=== PATIENT | female | born 1935 | race Caucasian/White ===

== ENCOUNTER → 2016-11-25 | Day surgery (SDC) | payer MEDICARE, BC ==
[~2016-11-25] MED LIST: Bupivacaine 0.5%/EPINEPHrine 1:200,000 50 ML MDV ONE; Dexamethasone 4 MG/ML SDV ONE; Heparin Sodium 5,000 Units/ML Vial ONE; Labetalol 100 MG/20 ML MDV ONE; Lactated Ringers 1,000 ML IV SCH; Lidocaine 1% 2 ML SDV ONE; Lidocaine 1% with EPINEPHrine 1:100,000 20 ML MDV ONE; Lidocaine 1%/Sod Bicarbonate in NS 8.4% 1 ML Syringe IV PRN; Ondansetron 4 MG/2 ML SDV ONE; Propofol 200 MG/20 ML SDV ONE; Scopolamine 1.5 MG Transdermal Patch TOP SCH; Sodium Chloride 0.9% 10 ML Syringe FLUSH PRN; Sodium Chloride 0.9% 50 ML SDV ONE; ceFAZolin 1 GM Vial ONE; diphenhydrAMINE 50 MG/ML SDV ONE; fentaNYL 100 MCG/2 ML SDV ONE
--- NOTE | 2016-11-25 07:08 | PCM.PREANE ---
Preanesthetic Assessment - ANESTHESIA/TRANSFUSION/FAMILY HX Anesthesia/Transfusion History: No Prior Transfusion(s), Prior Anesthesia ( nausea) Type of Anesthesia Reaction: Reports: Excessive Nausea/Vomiting Family History of Anesthesia Reaction: No Intubation History: Unknown - REVIEW OF SYSTEMS Constitutional: Reports: no symptoms MEDICAL RECEPTIONIST: Reports: no symptoms Respiratory: Reports: no symptoms Cardiovascular: Reports: no symptoms GI: Reports: no symptoms Other: Reports: diabetes (check this AM 0500 result 164) - PHYSICAL ASSESSMENT HR: 66 O2 Sat by Pulse Oximetry: 100 RR: 16 BP: 157/107 Temp: 36.2 C Vital Signs: Last Vital Signs Temp 36.2 C 11/25/16 06:30 Pulse 66 11/25/16 06:30 Resp 16 11/25/16 06:30 BP 157/107 H 11/25/16 06:30 Pulse Ox 100 11/25/16 06:30 Height: 1.63 m Weight: 77.111 kg NPO Status Date: 11/24/16 NPO Status Time: 17:00 ASA Class: 3 Mental Status: alert & oriented x3 Airway Class: Mallampati = 1 Dentition: Reports: broken tooth/teeth Thyro-Mental Finger Breadths: 3 Mouth Opening Finger Breadths: 3 ROM/Head Extension: full Respiratory Status: lungs clear to auscultation bilaterally Cardiovascular Status: regular rate & rhythm, normal S1, S2, no murmur, blood pressure WNL - ALLERGIES Allergies/Adverse Reactions: Allergies Allergy/AdvReac Type Severity Reaction Status Date / Time codeine Allergy Swollen Verified 10/23/16 11:04 Tongue duloxetine [From Cymbalta] Allergy Difficulty Verified 10/23/16 11:04 Breathing hydrocodone Allergy Swollen Verified 10/23/16 11:04 Tongue hydromorphone [From Dilaudid] Allergy Fever Verified 11/24/16 13:00 - ANESTHESIA PLAN Preop Beta Victoriano: Yes Beta Victoriano: Metoprolol Beta-Victoriano Last Dose Date: 11/25/16 Beta-Victoriano Last Dose Time: 05:00 Anesthesia Type Planned: MAC - ACKNOWLEDGEMENTS Pt an appropriate candidate for the planned anesthesia: Yes Alternatives and risks of anesthesia discussed w pt/guardian: Yes Pt/Guardian understands and agree with anesthesia plan: Yes PreAnesthesia Questionnaire HEENT History: Reports: Cataract, Glaucoma Other HEENT History: Thrush Cardiovascular History: Reports: Arrhythmia, High cholesterol, Hypertension, Pacemaker Other Cardiovascular History: chest pain, edema, arrythmia Respiratory History: Reports: Other (see below) Other Respiratory History: Lung Cancer, Pulmonary nodule, Dyspnea on exertion Gastrointestinal History: Reports: None Genitourinary History: Reports: Chronic renal insuffiency Other Genitourinary History: Contrast dye induced nephropathy, Microalbuminuria 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: Musculoskeletal History: Reports: Fibromyalgia Neurological History: Reports: None Psychiatric History: Reports: None Endocrine/Metabolic History: Reports: Diabetes, type II, Hypothyroidism, Vitamin D deficiency Other Endocrine/Metabolic History: DM II (diet controlled), goiter, thyroid nodule Immunologic History: Reports: None Oncologic (Cancer) History: Reports: Lung Dermatologic History: Reports: None - Infectious Disease History Infectious Disease History: Reports: Chicken pox - Past Surgical History HEENT Surgical History: Reports: Cataract surgery Cardiovascular Surgical History: Reports: Pacer Respiratory Surgical History: Reports: Thoracotomy, Other (see below) Other Respiratory Surgeries/Procedures: Bronchoscopy,Thoracotomy with RLL lobectomy GI Surgical History: Reports: Appendectomy, Colonoscopy Female Surgical History: Reports: Hysterectomy, Salpingo-oophorectomy Endocrine Surgical History: Reports: Thyroidectomy Neurological Surgical History: Reports: None Musculoskeletal Surgical History: Reports: Hip replacement Other Musculoskeletal Surgeries/Procedures:: Left SARI Oncologic Surgical History: Reports: Lobectomy, Other (see below) Other Oncologic Surgeries/Procedures: lymph node biopsy Dermatological Surgical History: Reports: None - SUBSTANCE USE Smoking Status *Q: Never Smoker Second Hand Smoke Exposure: No Recreational Drug Use History: No - HOME MEDS Home Medications: Home Meds Levothyroxine 75 mcg PO DAILY 12/10/15 [History] Lisinopril 40 mg PO DAILY 12/10/15 [History] Metoprolol Succinate 50 mg PO QAM 12/10/15 [History] Furosemide [Lasix] 20 mg PO DAILY #30 tablet 03/17/16 [Rx] Aspirin 81 mg PO DAILY 05/15/16 [History] Cholecalciferol (Vitamin D3) [Vitamin D3] 2,000 units PO DAILY 05/15/16 [History ] Latanoprost 1 drop OP BEDTIME 10/20/16 [History] [place]-3/DHA/Epa/Fish Oil [[place]-3 Fish Oil 1,000 MG Sfgl] 1,000 mg PO DAILY [History] Ketorolac [Toradol] 10 mg PO Q8H PRN #12 tablet 10/24/16 [Rx] traMADol [Ultram] 50 mg PO Q6H PRN 11/24/16 [History] - CURRENT (IN HOUSE) MEDS Current Meds: Current Medications Lactated Ringer's (Ringers, Lactated) 1,000 mls @ 125 mls/hr IV ASDIRECTED LUCIO Stop: 11/25/16 23:00 Lidocaine/Sodium Bicarbonate (Buffered Lidocaine 1% In Ns 8.4%) 0.25 ml IV ONETIME PRN PRN Reason: Prior to IV Start Stop: 11/25/16 18:00 Sodium Chloride (Saline Flush) 10 ml FLUSH ASDIRECTED PRN PRN Reason: Keep Vein Open Stop: 11/25/16 18:00 Discontinued Medications Bupivacaine HCl/Epinephrine Bitart (Marcaine 0.5%/Epinephrine 1:200,000) Confirm Administered Dose 50 ml .ROUTE .STK-MED ONE Stop: 11/25/16 06:46 Heparin Sodium (Porcine) (Heparin Sodium) Confirm Administered Dose 10,000 units .ROUTE .STK-MED ONE Stop: 11/25/16 06:46 Lidocaine/Epinephrine (Xylocaine 1% With Epinephrine 1:100,000) Confirm Administered Dose 20 ml .ROUTE .STK-MED ONE Stop: 11/25/16 06:46 Sodium Chloride (Normal Saline) Confirm Administered Dose 50 ml .ROUTE .STK-MED ONE Stop: 11/25/16 06:47
[2016-11-25 08:21] VITALS: BP 182/81
--- NOTE | 2016-11-25 08:26 | PCM.OPNOTE ---
- General Post-Op/Procedure Note Date of Surgery/Procedure: 11/25/16 Operative Procedure(s): Port-A-Cath placement. Ultrasound of the right internal jugular vein. Fluoroscopic guidance and interpretation Pre Op Diagnosis: Metastatic lung cancer Post-Op Diagnosis: Metastatic lung cancer Anesthesia Technique: Local (20 mL), MAC Primary Surgeon: Chacha Helms Anesthesia Provider: Guru Saldaña Pathology: None Fluid Replacement, Intraop: 600 (mL crystalloid ) EBL in mLs: 10 Complications: None Condition: Good Free Text/Narrative:: IMPLANTED DEVICES: Power port slim port, MRI compatible power injectable portacath INDICATION FOR PROCEDURE: Akua is an 81-year-old woman who was referred to me by Dr. Ferrara for evaluation for Port-A-Cath placement. The patient has known metastatic lung cancer. I discussed with the patient placement of a Port-A-Cath and the associated risks. The patient found these risks acceptable and agreed to proceed. DESCRIPTION OF PROCEDURE: The patient was taken to the operating room and placed in the supine position. The arms were tucked at the sides bilaterally and pressure points were padded. A transverse subscapular roll was placed. The patient's head was placed in a gel doughnut. Preoperative antibiotics were administered as per protocol. The patient was placed in Trendelenburg. The neck and upper chest were prepped and draped in usual sterile fashion with chlorhexidine. The patient has a pacemaker on the left. She previously has had a port on the right, it has been out for about 1.5 years. I also recently performed a supraclavicular lymph node biopsy on the right. We had discussed placement of the Port-A-Cath preferentially on the right due to the pacer. The right IJ was evaluated and was patent, however placement there would require tunneling through my recent incision. I elected to try subclavian first. Approximately 10 mL of local anesthetic were infiltrated into the area of the planned port placement and injection site. A stab incision was made with a 15 blade. A 16-gauge needle was then used to access the right subclavian vein with return of nonpulsatile blood on the first attempt. A guidewire was passed without difficulty and its position was confirmed using fluoroscopy in the inferior vena cava taking great care to not disturb the pacer wires. The needle was removed and the port pocket incision was made. A pocket was made directly over the chest wall fascia. A dilator was then advanced over the guidewire under direct fluoroscopic visualization. The inner cannula was removed as well as the wire. The catheter was advanced to the atriocaval junction and this was performed under fluoroscopy. The catheter was then trimmed and attached to the port. The port was then accessed and nonpulsatile blood was easily withdrawn. The port was then flushed with sterile saline. The port was secured in the pocket using 2-0 Prolene interrupted suture x3. The port was accessed once more and blood was aspirated and a total of 2 mL of 5000 units per mL heparin was instilled into the catheter for packing. 3-0 Vicryl suture was then used to reapproximate the deep subcutaneous tissue. 4-0 Vicryl was then used in running subcuticular fashion to reapproximate the skin. Dermabond was applied. The patient was awakened from sedation and transferred to the recovery room in stable condition having tolerated the procedure well. Sponge and instrument counts were reported as correct at the end of the case. POST-OPERATIVE INSTRUCTIONS: A postoperative chest x-ray was obtained which I immediately reviewed. The port was in excellent position and there was no evidence of pneumothorax. The Port-A-Cath is immediately usable. The patient has been provided with a prescription for EMLA cream, to apply a dime-sized amount approximately 15-20 minutes prior to accessing the port. Pain medication was also provided. The patient may follow up with me on an as needed basis.
--- NOTE | 2016-11-25 09:07 | CR ---
Chest: Portable view of the chest was obtained. Comparison: Previous chest x-ray 10/23/16. Heart is mildly enlarged. Pacemaker is noted. Right-sided port is seen with tip lying near the superior vena cava and right atrial junction. Previous rib resection on the right side is seen. No acute infiltrates are seen. No pneumothorax identified. Impression: 1. Port-A-Cath placement on the right side. 2. Other incidental findings. Diagnostic code #2
--- NOTE | 2016-11-25 15:33 | CR ---
Chest: Two fluoroscopic spot views were obtained utilizing C-arm device during Port-A-Cath placement. Tip of catheter appears to lie within the superior vena cava. Fluoroscopy time given as 71.5 seconds. Impression: 1. Findings as noted above. Diagnostic code #2
== END | disposition home or self-care (01) ==
LOC: JD.SDS 06:20
PROVIDERS: ATTEND Surgery
PROC: 05HM33Z Insertion of Infusion Device into Right Internal Jugular Vein, Percutaneous Approach (ICD-10-PCS; principal; 2016-11-25)
DX: C34.90 Malignant neoplasm of unspecified part of unspecified bronchus or lung (principal); E55.9 Vitamin D deficiency, unspecified; E11.9 Type 2 diabetes mellitus without complications; I10 Essential (primary) hypertension; E03.9 Hypothyroidism, unspecified; E78.00 Pure hypercholesterolemia, unspecified; M79.7 Fibromyalgia; H40.9 Unspecified glaucoma; Z95.0 Presence of cardiac pacemaker; Z96.642 Presence of left artificial hip joint; Z79.82 Long term (current) use of aspirin; Z79.899 Other long term (current) drug therapy; Z88.6 Allergy status to analgesic agent; Z88.8 Allergy status to other drugs, medicaments and biological substances
CPT/HCPCS: 00532; 71010; 71010-26; 77001; 77001-26; A9270-GY; C1788; J0690; J1100; J1200; J1644; J2405; J2704; J3010; J7120

== ENCOUNTER 2017-02-06 06:46 | Emergency (ER) | payer MEDICARE, BC ==
[2017-02-06 06:56] VITALS: BP 161/64
[2017-02-06] MEDS ORDERED: Lidocaine 4% Crm 5 Gm with Transparent Dressing Kit ONE (07:07)
[2017-02-06] MEDS ORDERED: Lidocaine 4% Crm 5 Gm with Transparent Dressing Kit TOP ONE (07:08)
[2017-02-06] MEDS ORDERED: Ondansetron 4 MG/2 ML SDV IVPUSH ONE (07:11)
[2017-02-06] MEDS ORDERED: Sodium Chloride 0.9% 10 ML Syringe FLUSH PRN (07:11)
[2017-02-06] MEDS ORDERED: Sodium Chloride 0.9% 1,000 ML IV SCH (07:15)
--- NOTE | 2017-02-06 07:19 | EDM.PDOC ---
ED HPI GENERAL MEDICAL PROBLEM - General Chief Complaint: Neuro Symptoms/Deficits Stated Complaint: WEAKNESS Time Seen by Provider: 02/06/17 06:58 Source of Information: Reports: Patient, RN Notes Reviewed - History of Present Illness INITIAL COMMENTS - FREE TEXT/NARRATIVE: 81-year-old female comes in with nausea, decreased appetite. She does have history of recurrent lung cancer. She's been on chemotherapy for the past 2 or 3 months getting that every Wednesday. Her last chemotherapy was 4 days ago. States she started feeling nauseated yesterday with decreased appetite. Continues today. She does feel somewhat weak lightheaded and dizzy. No chest pain. She has chronic dyspnea no worse than usual. No major abdominal or back discomfort at this time. She's not been coughing any more than usual. No recent fever, vomiting or diarrhea. - Related Data Allergies Allergy/AdvReac Type Severity Reaction Status Date / Time codeine Allergy Swollen Verified 02/06/17 06:53 Tongue duloxetine [From Cymbalta] Allergy Difficulty Verified 02/06/17 06:53 Breathing hydrocodone Allergy Swollen Verified 02/06/17 06:53 Tongue hydromorphone [From Dilaudid] Allergy Fever Verified 02/06/17 06:53 Home Meds: Home Meds Levothyroxine 75 mcg PO DAILY 12/10/15 [History] Lisinopril 40 mg PO DAILY 12/10/15 [History] Metoprolol Succinate 50 mg PO QAM 12/10/15 [History] Furosemide [Lasix] 20 mg PO DAILY #30 tablet 03/17/16 [Rx] Aspirin 81 mg PO DAILY 05/15/16 [History] Cholecalciferol (Vitamin D3) [Vitamin D3] 2,000 units PO DAILY 05/15/16 [History ] Latanoprost 1 drop OP BEDTIME 10/20/16 [History] [place]-3/DHA/Epa/Fish Oil [[place]-3 Fish Oil 1,000 MG Sfgl] 1,000 mg PO DAILY [History] traMADol [Ultram] 50 mg PO Q6H PRN 11/24/16 [History] Lidocaine/Prilocaine [EMLA Crm] 1 gm TOP Q6H PRN #1 tube 11/25/16 [Rx] Past Medical History HEENT History: Reports: Cataract, Glaucoma Other HEENT History: Thrush Cardiovascular History: Reports: Arrhythmia, High Cholesterol, Hypertension, Pacemaker Other Cardiovascular History: chest pain, edema, arrythmia Respiratory History: Reports: Other (See Below) Other Respiratory History: Lung Cancer, Pulmonary nodule, Dyspnea on exertion Gastrointestinal History: Reports: None Genitourinary History: Reports: Chronic Renal Insuffiency Other Genitourinary History: Contrast dye induced nephropathy, Microalbuminuria 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: Musculoskeletal History: Reports: Fibromyalgia Neurological History: Reports: None Psychiatric History: Reports: None Endocrine/Metabolic History: Reports: Diabetes, Type II, Hypothyroidism, Vitamin D Deficiency Other Endocrine/Metabolic History: DM II (diet controlled), goiter, thyroid nodule Immunologic History: Reports: None Oncologic (Cancer) History: Reports: Lung Dermatologic History: Reports: None - Infectious Disease History Infectious Disease History: Reports: Chicken Pox - Past Surgical History HEENT Surgical History: Reports: Cataract Surgery Respiratory Surgical History: Reports: Thoracotomy, Other (See Below) Female Surgical History: Reports: Hysterectomy, Salpingo-Oophorectomy Musculoskeletal Surgical History: Reports: Hip Replacement Oncologic Surgical History: Reports: Lobectomy, Other (See Below) Social & Family History - Family History Family Medical History: Noncontributory - Tobacco Use Smoking Status *Q: Never Smoker Second Hand Smoke Exposure: No - Caffeine Use Caffeine Use: Reports: None - Recreational Drug Use Recreational Drug Use: No Drug Use in Last 12 Months: No - Living Situation & Occupation Occupation: Retired ED ROS GENERAL - Review of Systems Review Of Systems: See Below Constitutional: Denies: Fever HEENT: Denies: Sinus Problem, Throat Pain Respiratory: Reports: Shortness of Breath (Mild chronically) Cardiovascular: Reports: Dyspnea on Exertion. Denies: Chest Pain, Edema Endocrine: Reports: Fatigue GI/Abdominal: Reports: Nausea. Denies: Abdominal Pain, Diarrhea, Vomiting Musculoskeletal: Denies: Neck Pain, Shoulder Pain, Leg Pain Skin: Denies: Rash Neurological: Reports: Dizziness, Weakness (Mild generalized). Denies: Trouble Speaking ED EXAM, NEURO - Physical Exam Exam: See Below General Appearance: Alert, No Apparent Distress Eye Exam: Bilateral Eye: PERRL Throat/Mouth: Normal Inspection, Other (Oral mucosa mildly dry) Head Exam: Atraumatic. No: Facial Swelling Neck: Supple, Full Range of Motion. No: Lymphadenopathy (L), Lymphadenopathy (R ) Respiratory/Chest: No Respiratory Distress, Lungs Clear, Normal Breath Sounds Cardiovascular: Regular Rate, Rhythm GI/Abdominal: Soft, Tender (Very mild tenderness upper mid abdomen) Neurological: Alert, No Motor/Sensory Deficits, Oriented x 3 Back Exam: No: CVA Tenderness (L), CVA Tenderness (R) Extremities: Normal Inspection. No: Pedal Edema, Leg Pain Skin Exam: Warm, Dry, Normal Color Course - Vital Signs Last Recorded V/S: Last Vital Signs Temp 96.7 F 02/06/17 06:54 Pulse 64 02/06/17 06:54 Resp 19 02/06/17 06:54 BP 161/64 H 02/06/17 06:54 Pulse Ox 100 02/06/17 06:54 - Orders/Labs/Meds Orders: Active Orders 24 hr Category Date Time Status Peripheral IV Care [RC] . DIRECTED Care 02/06/17 07:12 Active Sodium Chloride 0.9% [Normal Saline] 1,000 ml Med 02/06/17 07:15 Active IV ONETIME Sodium Chloride 0.9% [Saline Flush] Med 02/06/17 07:11 Active 10 ml FLUSH ASDIRECTED PRN Peripheral IV Insertion Adult [OM.PC] Stat Oth 02/06/17 07:11 Ordered Medication Orders Sodium Chloride (Normal Saline) 1,000 mls @ 999 mls/hr IV ONETIME [facility] [place] Last Admin: 02/06/17 07:45 Dose: 999 mls/hr Sodium Chloride (Saline Flush) 10 ml FLUSH ASDIRECTED PRN PRN Reason: Keep Vein Open Last Admin: 02/06/17 07:47 Dose: 10 ml Labs: Laboratory Tests 02/06/17 02/06/17 Range/Units 07:35 07:35 WBC 4.10 (3.98-10.04) K/mm3 RBC 2.52 L (3.98-5.22) M/mm3 Hgb 8.6 L (11.2-15.7) gm/L Hct 25.4 L (34.1-44.9) % MCV 100.8 H (79.4-94.8) fl MCH 34.1 H (25.6-32.2) pg MCHC 33.9 (32.2-35.5) g/dl RDW Std Deviation 59.3 H (36.4-46.3) fL Plt Count 158 L (182-369) K/mm3 MPV 10.3 (9.4-12.3) fl Neut % (Auto) 70.1 (34.0-71.1) % Lymph % (Auto) 22.7 (19.3-51.7) % [place] % (Auto) 6.8 (4.7-12.5) % Eos % (Auto) 0.2 L (0.7-5.8) Baso % (Auto) 0.0 L (0.1-1.2) % Neut # (Auto) 2.87 (1.56-6.13) K/mm3 Lymph # (Auto) 0.93 L (1.18-3.74) K/mm3 [place] # (Auto) 0.28 (0.24-0.36) K/mm3 Eos # (Auto) 0.01 L (0.04-0.36) K/mm3 Baso # (Auto) 0.00 L (0.01-0.08) K/mm3 Sodium 140 (136-145) mEq/L Potassium 4.1 (3.5-5.1) mEq/L Chloride 106 (98-107) mEq/L Carbon Dioxide 24 (21-32) mEq/L Anion Gap 14.1 (5-15) BUN 23 H (7-18) mg/dL Creatinine 1.0 (0.55-1.02) mg/dL Est Cr Clr Drug Dosing 38.75 mL/min Estimated GFR (MDRD) 53 (>60) mL/min BUN/Creatinine Ratio 23.0 H (14-18) Glucose 154 H (83-115) mg/dL Calcium 8.8 (8.5-10.1) mg/dL Total Bilirubin 1.2 H (0.2-1.0) mg/dL AST 17 (15-37) U/L ALT 22 (14-59) U/L Alkaline Phosphatase 53 (46-116) U/L Total Protein 6.6 (6.4-8.2) g/dl Albumin 3.1 L (3.4-5.0) g/dl Globulin 3.5 gm/dL Albumin/Globulin Ratio 0.9 L (1-2) Meds: Medications Generic Name Dose Route Start Last Admin Trade Name Freq PRN Reason Stop Dose Admin Sodium Chloride 1,000 mls @ 999 mls/hr 02/06/17 07:15 02/06/17 07:45 Normal Saline IV 999 mls/hr ONETIME LUCIO Administration Sodium Chloride 10 ml 02/06/17 07:11 02/06/17 07:47 Saline Flush FLUSH 10 ml ASDIRECTED PRN Administration Keep Vein Open Discontinued Medications Generic Name Dose Route Start Last Admin Trade Name Angel PRN Reason Stop Dose Admin Famotidine 20 mg 02/06/17 07:26 02/06/17 07:46 Pepcid IVPUSH 02/06/17 07:27 20 mg ONETIME ONE Administration Lidocaine HCl Confirm 02/06/17 07:07 02/06/17 07:11 Lmx 4 Cream With Tegaderm Administered 02/06/17 07:08 Not Given Dose 1 each .ROUTE .STK-MED ONE Lidocaine HCl 1 each 02/06/17 07:08 02/06/17 07:12 Lmx 4 Cream With Tegaderm TOP 02/06/17 07:09 1 applic ASDIRECTED ONE Administration Ondansetron HCl 4 mg 02/06/17 07:11 02/06/17 07:46 Zofran IVPUSH 02/06/17 07:12 4 mg ONETIME ONE Administration Departure - Departure Time of Disposition: 08:45 Disposition: Home, Self-Care 01 Condition: fair Clinical Impression: Anorexia, Nausea, Lung cancer - Discharge Information Forms: ED Department Discharge Additional Instructions: Use nausea medication as previously prescribed, clear liquids and very bland diet as tolerated, just to eat small amounts more frequently, followup clinic Wednesday as planned, return to ED as needed if symptoms worsening in any way - My Orders Last 24 Hours: My Active Orders 02/06/17 07:11 Sodium Chloride 0.9% [Saline Flush] 10 ml FLUSH ASDIRECTED PRN Peripheral IV Insertion Adult [OM.PC] Stat 02/06/17 07:12 Peripheral IV Care [RC] . DIRECTED 02/06/17 07:15 Sodium Chloride 0.9% [Normal Saline] 1,000 ml IV ONETIME - Assessment/Plan Last 24 Hours: My Active Orders 02/06/17 07:11 Sodium Chloride 0.9% [Saline Flush] 10 ml FLUSH ASDIRECTED PRN Peripheral IV Insertion Adult [OM.PC] Stat 02/06/17 07:12 Peripheral IV Care [RC] . DIRECTED 02/06/17 07:15 Sodium Chloride 0.9% [Normal Saline] 1,000 ml IV ONETIME
[2017-02-06] MEDS ORDERED: Famotidine 20 MG/2 ML SDV IVPUSH ONE (07:26)
== END 2017-02-06 09:33 | disposition home or self-care (01) ==
LOC: JD.ED 06:46
DX: R63.0 Anorexia (principal); R11.0 Nausea; C34.90 Malignant neoplasm of unspecified part of unspecified bronchus or lung; E78.00 Pure hypercholesterolemia, unspecified; E11.22 Type 2 diabetes mellitus with diabetic chronic kidney disease; N18.9 Chronic kidney disease, unspecified; I12.9 Hypertensive chronic kidney disease with stage 1 through stage 4 chronic kidney disease, or unspecified chronic kidney disease; E03.9 Hypothyroidism, unspecified; Z88.5 Allergy status to narcotic agent; Z88.8 Allergy status to other drugs, medicaments and biological substances; Z79.899 Other long term (current) drug therapy; Z79.82 Long term (current) use of aspirin; Z90.710 Acquired absence of both cervix and uterus; Z98.49 Cataract extraction status, unspecified eye
CPT/HCPCS: 36415; 80053; 85025; 96361; 96374; 96375; 99285; J1642; J2405; J7040; J7050; 99284

== ENCOUNTER 2017-05-03 11:37 | Emergency (ER) | payer MEDICARE, BC ==
[2017-05-03] MEDS ORDERED: Sodium Chloride 0.9% 10 ML Syringe FLUSH PRN (12:12)
[2017-05-03] MEDS ORDERED: Sodium Chloride 0.9% 1,000 ML IV SCH (12:15)
--- NOTE | 2017-05-03 13:30 | CR ---
Chest: Portable view of the chest was obtained. Comparison: Previous chest x-ray of 11/25/16. Heart is enlarged. Mild tortuosity of the thoracic aorta is seen. Lungs are clear. Previous fracture or rib resection is noted within the right upper chest which is stable. Right-sided infusion port is seen. Left-sided pacemaker is noted Impression: 1. Findings as noted above. Nothing acute is identified on portable chest x-ray. Diagnostic code #2
[2017-05-03] MEDS ORDERED: Sodium Chloride 0.9% 10 ML Syringe FLUSH ONE (14:53)
[2017-05-03] MEDS ORDERED: Iopamidol 755 Mg/ML 100 ML Bottle IVPUSH ONE (14:53)
--- NOTE | 2017-05-03 14:54 | US ---
Limited abdominal ultrasound: Multiple real-time images of the right upper abdomen were obtained. Liver not optimally seen. No definite abnormality is appreciated within the liver. Cysts are noted within the superior right kidney with largest measuring 1.8 cm. CBD is enlarged at 9 mm. Gallbladder shows no gallstones. No gallbladder wall thickening or biliary duct dilatation is seen. Pancreas shows no discrete abnormality. Impression: 1. Enlarged CBD at 9 mm. Gallbladder shows no gallstones. No gallbladder wall thickening is identified. 2. Incidental cyst within the upper right kidney. 3. No additional abnormality is appreciated on right upper quadrant abdominal ultrasound. Diagnostic code #3
[2017-05-03] MEDS ORDERED: Sodium Chloride 0.9% 100 ML IV SCH (15:00)
--- NOTE | 2017-05-03 15:23 | EDM.PDOC ---
ED HPI GENERAL MEDICAL PROBLEM - General Chief Complaint: Chest Pain Stated Complaint: SENT FROM [facility] Time Seen by Provider: 05/03/17 11:53 Source of Information: Reports: Patient History Limitations: Reports: No Limitations - History of Present Illness INITIAL COMMENTS - FREE TEXT/NARRATIVE: The patient presents with chest pain, shortness of breath and RUQ abdominal pain. This all started this weekend. She is better now. She has lung cancer and she went for chemo today and they wanted her evaluated over here for the chest pain and check her gallbladder. She has lung cancer for the second time now She had it a few years ago and they removed part of her lung on the right side. She denies fever or chills. She does have a slight cough at times. She has some chest pain but none now and shortness of breath. She has RUQ abdominal pain at times. She had nausea this weekend also. She has no dysuria and no hematuria. Onset: Gradual Duration: Day(s): Location: Reports: Chest Quality: Reports: Pressure Severity: Moderate Improves with: Reports: None Worsens with: Reports: None Associated Symptoms: Reports: Chest Pain, Nausea/Vomiting, Shortness of Breath. Denies: Fever/Chills - Related Data Allergies Allergy/AdvReac Type Severity Reaction Status Date / Time codeine Allergy Swollen Verified 05/03/17 11:52 Tongue duloxetine [From Cymbalta] Allergy Difficulty Verified 05/03/17 11:52 Breathing hydrocodone Allergy Swollen Verified 05/03/17 11:52 Tongue hydromorphone [From Dilaudid] Allergy Fever Verified 05/03/17 11:52 Home Meds: Home Meds Levothyroxine 75 mcg PO DAILY 12/10/15 [History] Lisinopril 40 mg PO DAILY 12/10/15 [History] Metoprolol Succinate 50 mg PO BID 12/10/15 [History] Furosemide [Lasix] 20 mg PO DAILY #30 tablet 03/17/16 [Rx] Aspirin 81 mg PO DAILY 05/15/16 [History] Cholecalciferol (Vitamin D3) [Vitamin D3] 2,000 units PO DAILY 05/15/16 [History ] Latanoprost 1 drop OP BEDTIME 10/20/16 [History] [place]-3/DHA/Epa/Fish Oil [[place]-3 Fish Oil 1,000 MG Sfgl] 1,000 mg PO DAILY [History] traMADol [Ultram] 50 mg PO Q6H PRN 11/24/16 [History] Lidocaine/Prilocaine [EMLA Crm] 1 gm TOP Q6H PRN #1 tube 11/25/16 [Rx] Prochlorperazine [Compazine] 5 mg PO QID PRN 05/03/17 [History] amLODIPine [Norvasc] 5 mg PO DAILY 05/03/17 [History] Past Medical History HEENT History: Reports: Cataract, Glaucoma Other HEENT History: Thrush Cardiovascular History: Reports: Arrhythmia, High Cholesterol, Hypertension, Pacemaker Other Cardiovascular History: chest pain, edema, arrythmia Respiratory History: Reports: Other (See Below) Other Respiratory History: Lung Cancer, Pulmonary nodule, Dyspnea on exertion Gastrointestinal History: Reports: None Genitourinary History: Reports: Chronic Renal Insuffiency Other Genitourinary History: Contrast dye induced nephropathy, Microalbuminuria [employer] History: Reports: Musculoskeletal History: Reports: Fibromyalgia Neurological History: Reports: None Psychiatric History: Reports: None Endocrine/Metabolic History: Reports: Diabetes, Type II, Hypothyroidism, Vitamin D Deficiency Other Endocrine/Metabolic History: DM II (diet controlled), goiter, thyroid nodule Immunologic History: Reports: None Oncologic (Cancer) History: Reports: Lung Dermatologic History: Reports: None - Infectious Disease History Infectious Disease History: Reports: Chicken Pox - Past Surgical History HEENT Surgical History: Reports: Cataract Surgery Respiratory Surgical History: Reports: Thoracotomy, Other (See Below) Female Surgical History: Reports: Hysterectomy, Salpingo-Oophorectomy Musculoskeletal Surgical History: Reports: Hip Replacement Oncologic Surgical History: Reports: Lobectomy, Other (See Below) Social & Family History - Family History Family Medical History: Noncontributory - Tobacco Use Smoking Status *Q: Never Smoker Second Hand Smoke Exposure: No - Caffeine Use Caffeine Use: Reports: None - Recreational Drug Use Recreational Drug Use: No Drug Use in Last 12 Months: No - Living Situation & Occupation Occupation: Retired ED ROS GENERAL - Review of Systems Review Of Systems: See Below Constitutional: Reports: No Symptoms HEENT: Reports: No Symptoms Respiratory: Reports: Shortness of Breath Cardiovascular: Reports: Chest Pain Endocrine: Reports: No Symptoms GI/Abdominal: Reports: Abdominal Pain (RUQ), Nausea, Vomiting : Reports: No Symptoms Musculoskeletal: Reports: No Symptoms Skin: Reports: No Symptoms ED EXAM, GENERAL - Physical Exam Exam: See Below Exam Limited By: No Limitations General Appearance: Alert, No Apparent Distress Ears: Normal External Exam Nose: Normal Inspection Head: Atraumatic, Normocephalic Neck: Normal Inspection Respiratory/Chest: No Respiratory Distress, Lungs Clear, Normal Breath Sounds Cardiovascular: Regular Rate, Rhythm, No Edema, No Murmur GI/Abdominal: Soft, No Organomegaly, No Mass, Tender (Mild to the RUQ) Back Exam: Normal Inspection Extremities: Normal Inspection Course - Vital Signs Last Recorded V/S: Last Vital Signs Temp 97.8 F 05/03/17 11:48 Pulse 77 05/03/17 11:48 Resp 16 05/03/17 11:48 BP 152/58 H 05/03/17 11:48 Pulse Ox 97 05/03/17 11:48 - Orders/Labs/Meds Orders: Active Orders 24 hr Category Date Time Status Cardiac Monitoring [RC] . DIRECTED Care 05/03/17 12:12 Active EKG Documentation Completion [RC] STAT Care 05/03/17 12:13 Active Peripheral IV Care [RC] . DIRECTED Care 05/03/17 12:13 Active Sodium Chloride 0.9% [Normal Saline] 1,000 ml Med 05/03/17 12:15 Active IV ASDIRECTED Sodium Chloride 0.9% [Normal Saline] 100 ml Med 05/03/17 15:00 Active IV ASDIRECTED Sodium Chloride 0.9% [Saline Flush] Med 05/03/17 12:12 Active 10 ml FLUSH ASDIRECTED PRN Peripheral IV Insertion Adult [OM.PC] Stat Oth 05/03/17 12:12 Ordered Medication Orders Sodium Chloride (Normal Saline) 1,000 mls @ 125 mls/hr IV ASDIRECTED LUCIO Last Admin: 05/03/17 12:39 Dose: 125 mls/hr Sodium Chloride (Normal Saline) 100 mls @ 60 mls/hr IV ASDIRECTED LUCIO Last Admin: 05/03/17 14:59 Dose: 60 mls/hr Sodium Chloride (Saline Flush) 10 ml FLUSH ASDIRECTED PRN PRN Reason: Keep Vein Open Last Admin: 05/03/17 12:39 Dose: 10 ml Labs: Laboratory Tests 05/03/17 05/03/1705/03/17 Range/Units 12:25 12:25 12:25 WBC 3.95 L (3.98-10.04) K/mm3 RBC 2.72 L (3.98-5.22) M/mm3 Hgb 9.8 L (11.2-15.7) gm/L Hct 29.7 L (34.1-44.9) % MCV 109.2 H (79.4-94.8) fl MCH 36.0 H (25.6-32.2) pg MCHC 33.0 (32.2-35.5) g/dl RDW Std Deviation 58.4 H (36.4-46.3) fL Plt Count 205 (182-369) K/mm3 MPV 9.7 (9.4-12.3) fl Neut % (Auto) 52.8 (34.0-71.1) % Lymph % (Auto) 33.7 (19.3-51.7) % [place] % (Auto) 12.4 (4.7-12.5) % Eos % (Auto) 0.3 L (0.7-5.8) Baso % (Auto) 0.3 (0.1-1.2) % Neut # (Auto) 2.09 (1.56-6.13) K/mm3 Lymph # (Auto) 1.33 (1.18-3.74) K/mm3 [place] # (Auto) 0.49 H (0.24-0.36) K/mm3 Eos # (Auto) 0.01 L (0.04-0.36) K/mm3 Baso # (Auto) 0.01 (0.01-0.08) K/mm3 Manual Slide Review Abnormal smear D-Dimer, Quantitative 2.83 H (0.19-0.59) mg/L Sodium 138 (136-145) mEq/L Potassium 4.3 (3.5-5.1) mEq/L Chloride 102 (98-107) mEq/L Carbon Dioxide 29 (21-32) mEq/L Anion Gap 11.3 (5-15) BUN 23 H (7-18) mg/dL Creatinine 1.3 H (0.55-1.02) mg/dL Est Cr Clr Drug Dosing 29.80 mL/min Estimated GFR (MDRD) 39 (>60) mL/min BUN/Creatinine Ratio 17.7 (14-18) Glucose 146 H (83-115) mg/dL Calcium 9.0 (8.5-10.1) mg/dL Total Bilirubin 0.6 (0.2-1.0) mg/dL AST 20 (15-37) U/L ALT 28 (14-59) U/L Alkaline Phosphatase 46 (46-116) U/L Troponin I < 0.017 (0.00-0.056) ng/mL Total Protein 6.2 L (6.4-8.2) g/dl Albumin 3.1 L (3.4-5.0) g/dl Globulin 3.1 gm/dL Albumin/Globulin Ratio 1.0 (1-2) Lipase 321 (73-393) U/L Urine Color (Yellow) Urine Appearance (Clear) Urine pH (5.0-8.0) Ur Specific [place] (1.005-1.030) Urine Protein (Negative) Urine Glucose (UA) (Negative) Urine Ketones (Negative) Urine Occult Blood (Negative) Urine Nitrite (Negative) Urine Bilirubin (Negative) Urine Urobilinogen (0.2-1.0) Ur Leukocyte Esterase (Negative) Urine RBC (0-5) /hpf Urine WBC (0-5) /hpf Ur Epithelial Cells (0-5) /hpf Urine Bacteria (FEW) /hpf Urine Mucus (FEW) /hpf 05/03/17 05/03/17 Range/Units 14:39 15:07 WBC (3.98-10.04) K/mm3 RBC (3.98-5.22) M/mm3 Hgb (11.2-15.7) gm/L Hct (34.1-44.9) % MCV (79.4-94.8) fl MCH (25.6-32.2) pg MCHC (32.2-35.5) g/dl RDW Std Deviation (36.4-46.3) fL Plt Count (182-369) K/mm3 MPV (9.4-12.3) fl Neut % (Auto) (34.0-71.1) % Lymph % (Auto) (19.3-51.7) % [place] % (Auto) (4.7-12.5) % Eos % (Auto) (0.7-5.8) Baso % (Auto) (0.1-1.2) % Neut # (Auto) (1.56-6.13) K/mm3 Lymph # (Auto) (1.18-3.74) K/mm3 [place] # (Auto) (0.24-0.36) K/mm3 Eos # (Auto) (0.04-0.36) K/mm3 Baso # (Auto) (0.01-0.08) K/mm3 Manual Slide Review D-Dimer, Quantitative (0.19-0.59) mg/L Sodium (136-145) mEq/L Potassium (3.5-5.1) mEq/L Chloride (98-107) mEq/L Carbon Dioxide (21-32) mEq/L Anion Gap (5-15) BUN (7-18) mg/dL Creatinine (0.55-1.02) mg/dL Est Cr Clr Drug Dosing mL/min Estimated GFR (MDRD) (>60) mL/min BUN/Creatinine Ratio (14-18) Glucose (83-115) mg/dL Calcium (8.5-10.1) mg/dL Total Bilirubin (0.2-1.0) mg/dL AST (15-37) U/L ALT (14-59) U/L Alkaline Phosphatase (46-116) U/L Troponin I < 0.017 (0.00-0.056) ng/mL Total Protein (6.4-8.2) g/dl Albumin (3.4-5.0) g/dl Globulin gm/dL Albumin/Globulin Ratio (1-2) Lipase (73-393) U/L Urine Color Light yellow (Yellow) Urine Appearance Clear (Clear) Urine pH 6.5 (5.0-8.0) Ur Specific [place] 1.010 (1.005-1.030) Urine Protein Negative (Negative) Urine Glucose (UA) Negative (Negative) Urine Ketones Negative (Negative) Urine Occult Blood Trace-lysed H (Negative) Urine Nitrite Negative (Negative) Urine Bilirubin Negative (Negative) Urine Urobilinogen 0.2 (0.2-1.0) Ur Leukocyte Esterase Negative (Negative) Urine RBC 0-5 (0-5) /hpf Urine WBC 0-5 (0-5) /hpf Ur Epithelial Cells 10-20 H (0-5) /hpf Urine Bacteria Not seen (FEW) /hpf Urine Mucus Not seen (FEW) /hpf Meds: Medications Generic Name Dose Route Start Last Admin Trade Name Fregavin PRN Reason Stop Dose Admin Sodium Chloride 1,000 mls @ 125 mls/hr 05/03/17 12:15 05/03/17 12:39 Normal Saline IV 125 mls/hr ASDIRECTED LUCIO Administration Sodium Chloride 100 mls @ 60 mls/hr 05/03/17 15:00 05/03/17 14:59 Normal Saline IV 60 mls/hr ASDIRECTED LUCIO Administration Sodium Chloride 10 ml 05/03/17 12:12 05/03/17 12:39 Saline Flush FLUSH 10 ml ASDIRECTED PRN Administration Keep Vein Open Discontinued Medications Generic Name Dose Route Start Last Admin Trade Name Angel PRN Reason Stop Dose Admin Iopamidol 100 ml 05/03/17 14:53 05/03/17 14:59 Isovue-370 (76%) IVPUSH 05/03/17 14:54 100 ml ONETIME ONE Administration Sodium Chloride 10 ml 05/03/17 14:53 05/03/17 14:59 Saline Flush FLUSH 05/03/17 14:54 10 ml ONETIME ONE Administration - Re-Assessments/Exams Free Text/Narrative Re-Assessment/Exam: 05/03/17 15:24 I ordered an IV NS at 100mL/hr, EKG, CXR, labs and US of her RUQ. 05/03/17 15:26 Her WBC was low at 3.95. Her Hgb was low at 9.8. Her platelets were normal. Her D-dimer was elevated at 1.83. Her creatinine was slightly elevated at 1.3. Her glucose was 146. Her troponin and lipase are negative. Her EKG shows a paced rhythm at 60 with no acute changes. Her CXR looks good. The US of her gallbladder shows enlarged CBD at 9mm. Gallbladder shows no gallstones. No gallbladder wall thickening is identified. Incidental cyst within the upper right kidney. No additional abnormality is appreciated on right upper quadrant abdominal US. I have a CT of her chest ordered and a repeat troponin. 05/03/17 16:18 Her repeat troponin is negative. Her CT shows no findings of PE, several stable nodules within the chest, other incidental findings which are stable. She feels better and she would like to go home. Departure - Departure Time of Disposition: 16:20 Disposition: Home, Self-Care 01 Condition: Good Clinical Impression: Atypical chest pain, Reflux esophagitis Abdominal pain Qualifiers: Abdominal location: right upper quadrant Qualified Code(s): R10.11 - Right upper quadrant pain Referrals: Mushtaq Andrews MD [Primary Care Provider] - 1 Week Forms: ED Department Discharge Additional Instructions: Avoid fried fatty foods. Take prilosec or pepcid to avoid the reflux. Follow up with your doctor. - My Orders Last 24 Hours: My Active Orders 05/03/17 12:12 Cardiac Monitoring [RC] . DIRECTED Sodium Chloride 0.9% [Saline Flush] 10 ml FLUSH ASDIRECTED PRN Peripheral IV Insertion Adult [OM.PC] Stat 05/03/17 12:13 EKG Documentation Completion [RC] STAT Peripheral IV Care [RC] . DIRECTED 05/03/17 12:15 Sodium Chloride 0.9% [Normal Saline] 1,000 ml IV ASDIRECTED 05/03/17 15:00 Sodium Chloride 0.9% [Normal Saline] 100 ml IV ASDIRECTED - Assessment/Plan Last 24 Hours: My Active Orders 05/03/17 12:12 Cardiac Monitoring [RC] . DIRECTED Sodium Chloride 0.9% [Saline Flush] 10 ml FLUSH ASDIRECTED PRN Peripheral IV Insertion Adult [OM.PC] Stat 05/03/17 12:13 EKG Documentation Completion [RC] STAT Peripheral IV Care [RC] . DIRECTED 05/03/17 12:15 Sodium Chloride 0.9% [Normal Saline] 1,000 ml IV ASDIRECTED 05/03/17 15:00 Sodium Chloride 0.9% [Normal Saline] 100 ml IV ASDIRECTED
--- NOTE | 2017-05-03 15:34 | CT ---
CT chest Technique: Multiple axial sections through the chest were obtained. Intravenous contrast was utilized. Study has been performed as a pulmonary angiogram protocol. Comparison: Previous CT chest of 10/23/16. Findings: Pulmonary arteries are well-opacified. No filling defects are identified to indicate pulmonary embolism. Atherosclerotic calcification is noted within the thoracic aorta. No aneurysm is seen. Mild coronary artery calcification is noted. Heart is mildly enlarged. Mediastinum and hilar regions show no adenopathy or mass. Small portion of the visualized upper abdominal structures shows several cysts within the right and left kidneys. Nodule is identified within the right lower lung measuring about 7 mm. This is believed to be fairly stable from previous exam. Slight scattered groundglass appearance is seen believed to represent mild atelectasis and fibrosis which is stable from previous exam. Slight areas of scarring are noted within both lung bases. Small nodule is noted within the left lower lung in a subpleural location measuring about 4 mm in size which also is stable. Additional subpleural nodule is noted within the right lung base measuring about 4 mm which also is stable. Bone window settings were reviewed showing scattered degenerative change within the spine. Impression: 1. No findings of pulmonary embolism. 2. Several stable nodules within the chest. 3. Other incidental findings as noted above which are stable. Diagnostic code #3
[2017-05-03 17:12] VITALS: BP 151/80
== END 2017-05-03 17:05 | disposition home or self-care (01) ==
LOC: JD.ED 11:37
DX: K21.0 Gastro-esophageal reflux disease with esophagitis (principal); E78.00 Pure hypercholesterolemia, unspecified; I12.9 Hypertensive chronic kidney disease with stage 1 through stage 4 chronic kidney disease, or unspecified chronic kidney disease; N18.9 Chronic kidney disease, unspecified; E11.22 Type 2 diabetes mellitus with diabetic chronic kidney disease; Z88.5 Allergy status to narcotic agent; Z88.8 Allergy status to other drugs, medicaments and biological substances; Z79.82 Long term (current) use of aspirin; Z79.899 Other long term (current) drug therapy; Z90.710 Acquired absence of both cervix and uterus; Z98.49 Cataract extraction status, unspecified eye
CPT/HCPCS: 36415; 36569; 71010; 71275; 76705; 80053; 81001; 83690; 84484; 85025; 85379; 93005; 96360; 96361; 99285; J1642; J7030; J7040; J7050; Q9967; 99284

== ENCOUNTER 2017-08-02 09:18 | Inpatient (IN) | payer MEDICARE, BC ==
[~2017-08-02 09:18] MED LIST changes: -Bupivacaine 0.5%/EPINEPHrine 1:200,000 50 ML MDV ONE; -Dexamethasone 4 MG/ML SDV ONE; -Heparin Sodium 5,000 Units/ML Vial ONE; -Labetalol 100 MG/20 ML MDV ONE; -Lidocaine 1% 2 ML SDV ONE; -Lidocaine 1% with EPINEPHrine 1:100,000 20 ML MDV ONE; -Ondansetron 4 MG/2 ML SDV ONE; -Propofol 200 MG/20 ML SDV ONE; -Scopolamine 1.5 MG Transdermal Patch TOP SCH; -Sodium Chloride 0.9% 50 ML SDV ONE; -ceFAZolin 1 GM Vial ONE; -diphenhydrAMINE 50 MG/ML SDV ONE; -fentaNYL 100 MCG/2 ML SDV ONE
[2017-08-02] MEDS ORDERED: Lactated Ringers 1,000 ML ONE (10:23)
[2017-08-02] MEDS ORDERED: Propofol 200 MG/20 ML SDV ONE (10:23)
[2017-08-02] MEDS ORDERED: Lidocaine 1% 0 ML ONE (10:23)
[2017-08-02] MEDS ORDERED: Ondansetron 4 MG/2 ML SDV ONE (10:23)
[2017-08-02] MEDS ORDERED: ceFAZolin 1 GM Vial ONE ×2 (10:23→10:30)
[2017-08-02] MEDS ORDERED: Phenylephrine 1% 10 MG/ML SDV ONE (10:23)
[2017-08-02] MEDS ORDERED: Ketamine 500 mg/10 ML MDV ONE (10:24)
[2017-08-02] MEDS ORDERED: fentaNYL 100 MCG/2 ML SDV ONE (10:24)
[2017-08-02] MEDS ORDERED: Midazolam 1 MG/ML 2 ML SDV ONE (10:24)
[2017-08-02] MEDS ORDERED: Morphine PF 10 MG/10 ML SDV ONE (10:24)
[2017-08-02] MEDS ORDERED: Bupivacaine 0.25% 30 ML SDV ONE (10:30)
[2017-08-02] MEDS ORDERED: Iodine/Sodium Iodide 2% Tincture 30 ML Bottle ONE (10:30)
--- NOTE | 2017-08-02 10:38 | PCM.PREANE ---
Preanesthetic Assessment - Anesthesia/Transfusion/Family Hx Anesthesia History: Prior Anesthesia Without Reaction Type of Anesthesia Reaction: Excessive Nausea/Vomiting Family History of Anesthesia Reaction: No Transfusion History: Prior Transfusion Without Reaction Intubation History: Unknown - Review of Systems General: No Symptoms Pulmonary: No Symptoms (History of Right lung/left lung and lymph node in throat. CA with lobectomy right noted.) Cardiovascular: No Symptoms (History of HTN, CHF, and pacemaker), Palpitations, Dyspnea on Exertion, Edema Gastrointestinal: No Symptoms (GERD) Neurological: No Symptoms (History of motion sickness), Tingling (right hand thumb and first 2 fingers.) Other: Reports: None (Renal Insufficiency with BUN = 26 CR= 1.1), Easy Bruising , Diabetes (am blood sugar @ 2663=727), Thyroid Problems (History of hypothyroid ) - Physical Assessment NPO Status Date: 08/01/17 NPO Status Time: 17:30 Pulse: 64 O2 Sat by Pulse Oximetry: 96 Respiratory Rate: 16 Blood Pressure: 133/63 Temperature: 36.5 C Height: 1.63 m Weight: 76 kg ASA Class: 3 Mental Status: Alert & Oriented x3 Airway Class: Mallampati = 2 Dentition: Reports: Normal Dentition, Caries Thyro-Mental Finger Breadths: 3 Mouth Opening Finger Breadths: 3 ROM/Head Extension: Full Lungs: Clear to Auscultation, Normal Respiratory Effort Cardiovascular: Regular Rate, Regular Rhythm, No Murmurs - Lab Values: Laboratory Last Values POC Glucose 126 mg/dL (83-110) H 08/02/17 10:19 History of positive MRSA. 07/05/17 BUN: 26 CR: 1.1 Platelets= 209,000 HGB: 12.4 All other labs reviewed and noted and within acceptable ranges to proceed with scheduled procedure. - Imaging/EKG Impressions: EKG: SR with PAC's rate = 76 CXR: negative Echocardiogram: EF: 65-70% - Allergies Allergies/Adverse Reactions: Allergies Allergy/AdvReac Type Severity Reaction Status Date / Time codeine Allergy Swollen Verified 07/30/17 09:26 Tongue duloxetine [From Cymbalta] Allergy Difficulty Verified 07/30/17 09:26 Breathing hydrocodone Allergy Swollen Verified 07/30/17 09:26 Tongue hydromorphone [From Dilaudid] Allergy Fever Verified 07/30/17 09:26 - Anesthesia Plan Pre-Op Medication Ordered: Beta Victoriano Beta Victoriano: Metoprolol Med Last Dose Date: 08/02/17 Med Last Dose Time: 06:30 - Acknowledgements Anesthesia Type Planned: Spinal (with MAC) Pt an Appropriate Candidate for the Planned Anesthesia: Yes Alternatives and Risks of Anesthesia Discussed w Pt/Guardian: Yes Pt/Guardian Understands and Agrees with Anesthesia Plan: Yes PreAnesthesia Questionnaire HEENT History: Reports: Cataract, Glaucoma, Impaired Vision Other HEENT History: history of oral thrush, wears glasses Cardiovascular History: Reports: Arrhythmia, High Cholesterol, Hypertension, Pacemaker Other Cardiovascular History: chest pain/pressure, edema Respiratory History: Reports: Other (See Below) Other Respiratory History: Lung Cancer, Pulmonary nodule, Dyspnea on exertion Gastrointestinal History: Reports: None Genitourinary History: Reports: Chronic Renal Insuffiency Other Genitourinary History: Contrast dye induced nephropathy, Microalbuminuria DIABETES CLINICAL MANAGER History: Reports: Musculoskeletal History: Reports: Fibromyalgia, Osteoarthritis Neurological History: Reports: None Psychiatric History: Reports: None Endocrine/Metabolic History: Reports: Diabetes, Type II, Hypothyroidism, Vitamin D Deficiency Other Endocrine/Metabolic History: DM II (diet controlled), goiter, thyroid nodule Hematologic History: Reports: Blood Transfusion(s) Immunologic History: Reports: None Oncologic (Cancer) History: Reports: Lung Dermatologic History: Reports: None - Infectious Disease History Infectious Disease History: Reports: Chicken Pox - Past Surgical History HEENT Surgical History: Reports: Cataract Surgery Cardiovascular Surgical History: Reports: Pacer Respiratory Surgical History: Reports: Thoracotomy, Other (See Below) Other Respiratory Surgeries/Procedures: Bronchoscopy,Thoracotomy with RLL lobectomy GI Surgical History: Reports: Appendectomy, Colonoscopy Female Surgical History: Reports: Hysterectomy, Salpingo-Oophorectomy Male Surgical History: Reports: None Endocrine Surgical History: Reports: Thyroidectomy Neurological Surgical History: Reports: None Musculoskeletal Surgical History: Reports: Hip Replacement Other Musculoskeletal Surgeries/Procedures:: Left total hip replacement Oncologic Surgical History: Reports: Lobectomy, Other (See Below) Other Oncologic Surgeries/Procedures: lymph node biopsy Dermatological Surgical History: Reports: None - SUBSTANCE USE Smoking Status *Q: Never Smoker Second Hand Smoke Exposure: No Recreational Drug Use History: No - HOME MEDS Home Medications: Home Meds Levothyroxine 75 mcg PO DAILY 12/10/15 [History] Lisinopril 40 mg PO DAILY 12/10/15 [History] Metoprolol Succinate 50 mg PO BID 12/10/15 [History] Furosemide [Lasix] 20 mg PO DAILY #30 tablet 03/17/16 [Rx] Aspirin 81 mg PO DAILY 05/15/16 [History] Cholecalciferol (Vitamin D3) [Vitamin D3] 2,000 units PO DAILY 05/15/16 [History ] Latanoprost 1 drop OP BEDTIME 10/20/16 [History] [place]-3/DHA/Epa/Fish Oil [[place]-3 Fish Oil 1,000 MG Sfgl] 1,000 mg PO DAILY [History] traMADol [Ultram] 50 mg PO Q6H PRN 11/24/16 [History] Lidocaine/Prilocaine [EMLA Crm] 1 gm TOP Q6H PRN #1 tube 11/25/16 [Rx] Prochlorperazine [Compazine] 5 mg PO QID PRN 05/03/17 [History] amLODIPine [Norvasc] 5 mg PO DAILY 05/03/17 [History] Ondansetron HCl [Zofran] 4 mg PO Q6H PRN 07/30/17 [History] Pantoprazole Sodium [Protonix] 40 mg PO DAILY 07/30/17 [History] Psyllium Husk [Metamucil] 1 tsp PO BID 07/30/17 [History] - CURRENT (IN HOUSE) MEDS Current Meds: Current Medications Morphine Sulfate 8 mg/Epinephrine HCl 0.3 mg/Cefuroxime Sodium 750 mg/Ketorolac Tromethamine 30 mg/Sodium Chloride 27.9 ml 0 mg .XX ONETIME ONE Stop: 08/02/17 11:46 Lactated Ringer's (Ringers, Lactated) 1,000 mls @ 125 mls/hr IV ASDIRECTED LUCIO Lidocaine/Sodium Bicarbonate (Buffered Lidocaine 1% In Ns 8.4%) 0.25 ml IV ONETIME PRN PRN Reason: Prior to IV Start Stop: 08/02/17 18:00 Scopolamine (Transderm-Scop) 1.5 mg TRDERM Q72H ONE Stop: 08/02/17 11:31 Sodium Chloride (Saline Flush) 10 ml FLUSH ASDIRECTED PRN PRN Reason: Keep Vein Open Stop: 08/02/17 18:00 Discontinued Medications Cefazolin Sodium (Ancef) Confirm Administered Dose 2 gm .ROUTE .STK-MED ONE Stop: 08/02/17 10:24 Fentanyl (Sublimaze) Confirm Administered Dose 100 mcg .ROUTE .STK-MED ONE Stop: 08/02/17 10:25 Lidocaine HCl (Xylocaine-Mpf 1%) Confirm Administered Dose 6 mls @ as directed .ROUTE .STK-MED ONE Stop: 08/02/17 10:24 Lactated Ringer's (Ringers, Lactated) Confirm Administered Dose 1,000 mls @ as directed .ROUTE .STK-MED ONE Stop: 08/02/17 10:24 Ketamine HCl (Ketalar) Confirm Administered Dose 500 mg .ROUTE .STK-MED ONE Stop: 08/02/17 10:25 Midazolam HCl (Versed 1 Mg/Ml) Confirm Administered Dose 2 mg .ROUTE .STK-MED ONE Stop: 08/02/17 10:25 Morphine Sulfate (Duramorph Pf) Confirm Administered Dose 10 mg .ROUTE .STK-MED ONE Stop: 08/02/17 10:25 Ondansetron HCl (Zofran) Confirm Administered Dose 4 mg .ROUTE .STK-MED ONE Stop: 08/02/17 10:24 Phenylephrine HCl (Robert-Synephrine) Confirm Administered Dose 10 mg .ROUTE .STK- MED ONE Stop: 08/02/17 10:24 Propofol (Diprivan 20 Ml) Confirm Administered Dose 400 mg .ROUTE .STK-MED ONE Stop: 08/02/17 10:24
[2017-08-02] MEDS ORDERED: Vancomycin 1 GM SDV ONE (11:00)
[2017-08-02] MEDS ORDERED: Scopolamine 1.5 MG Transdermal Patch TRDERM ONE (11:30)
[2017-08-02] MEDS ORDERED: Morphine 8 MG, EPINEPHrine 0.3 MG, Cefuroxime 750 MG, Ketorolac 30 MG, Sodium Chloride ... ONE ×5 (11:45)
[2017-08-02] MEDS ORDERED: Sennosides 8.6 MG Tab PO PRN (11:57)
[2017-08-02] MEDS ORDERED: Bisacodyl 5 MG Tab PO PRN (11:57)
[2017-08-02] MEDS ORDERED: Naloxone 0.4 MG/ML SDV IVPUSH PRN (11:57)
[2017-08-02] MEDS ORDERED: Ondansetron 4 MG/2 ML SDV IVPUSH PRN ×2 (11:57→12:40)
[2017-08-02] MEDS ORDERED: Magnesium Hydroxide 400 MG/5 ML Susp 30 ML Cup PO PRN (11:57)
[2017-08-02] MEDS ORDERED: diphenhydrAMINE 50 MG/ML SDV IVPUSH PRN (12:40)
--- NOTE | 2017-08-02 13:33 | PCM.POSTAN ---
POST ANESTHESIA ASSESSMENT - MENTAL STATUS Mental Status: Somnolent - VITAL SIGNS Pulse Rate: 63 SaO2: 100 Resp Rate: 18 Blood Pressure: 104/55 Temperature: 36.6 C - RESPIRATORY Respiratory Status: Respiratory Rate WNL, Airway Patent, O2 Saturation Stable, Supplemental Oxygen - CARDIOVASCULAR CV Status: Pulse Rate WNL, Blood Pressure Stable - GASTROINTESTINAL GI Status: No Symptoms - PAIN Pain Score: 0 - POST OP HYDRATION Hydration Status: Adequate & Stable
[2017-08-02] MEDS ORDERED: Haloperidol Lactate 5 MG/ML SDV IVPUSH ONE (14:00)
--- NOTE | 2017-08-02 14:59 | PCM.CONS ---
H&P History of Present Illness - General Date of Service: 08/02/17 Admit Problem/Dx: Admission Diagnosis/Problem Admission Diagnosis/Problem Osteoarthritis of hip Source of Information: Patient, Old Records, Provider, RN, RN Notes Reviewed, Other (Surgical notes) History Limitations: Reports: No Limitations - History of Present Illness Initial Comments - Free Text/Narative: Akua Smith is a 82 yo female patient of Dr. Segura who is post-operative day 0 of right SARI. Hospital medicine was consulted for post-operative medical care. At this time she is resting comfortably in bed. Pain is controlled. She denies any chest pain, shortness of breath, palpitations, nausea, or vomiting. 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 She was never a smoker. She is a full code. Her primary care provider is Dr. Perkins at [facility] in [place]. Right Hip Pain Score (Numeric/FACES): 0 - Related Data Allergies/Adverse Reactions: Allergies Allergy/AdvReac Type Severity Reaction Status Date / Time codeine Allergy Swollen Verified 08/02/17 15:12 Tongue duloxetine [From Cymbalta] Allergy Difficulty Verified 08/02/17 15:12 Breathing fentanyl Allergy Chest Pain Verified 08/02/17 15:12 hydrocodone Allergy Swollen Verified 08/02/17 15:12 Tongue hydromorphone [From Dilaudid] Allergy Fever Verified 08/02/17 15:12 Home Medications: Home Meds Levothyroxine 75 mcg PO DAILY 12/10/15 [History] Lisinopril 40 mg PO DAILY 12/10/15 [History] Metoprolol Succinate 50 mg PO BID 12/10/15 [History] Furosemide [Lasix] 20 mg PO DAILY #30 tablet 03/17/16 [Rx] Aspirin 81 mg PO DAILY 05/15/16 [History] Cholecalciferol (Vitamin D3) [Vitamin D3] 2,000 units PO DAILY 05/15/16 [History ] Latanoprost 1 drop OP BEDTIME 10/20/16 [History] [place]-3/DHA/Epa/Fish Oil [[place]-3 Fish Oil 1,000 MG Sfgl] 1,000 mg PO BEDTIME [History] traMADol [Ultram] 50 mg PO Q8H PRN 11/24/16 [History] Lidocaine/Prilocaine [EMLA Crm] 1 gm TOP Q6H PRN #1 tube 11/25/16 [Rx] Prochlorperazine [Compazine] 10 mg PO QID PRN 05/03/17 [History] amLODIPine [Norvasc] 10 mg PO BEDTIME 05/03/17 [History] Ondansetron HCl [Zofran] 4 mg PO Q6H PRN 07/30/17 [History] Pantoprazole Sodium [Protonix] 40 mg PO DAILY 07/30/17 [History] Psyllium Husk [Metamucil] 1 tsp PO BID 07/30/17 [History] Past Medical History HEENT History: Reports: Cataract, Glaucoma, Impaired Vision Other HEENT History: history of oral thrush, wears glasses Cardiovascular History: Reports: Arrhythmia, High Cholesterol, Hypertension, Pacemaker Other Cardiovascular History: chest pain/pressure, edema Respiratory History: Reports: Other (See Below) Other Respiratory History: Lung Cancer, Pulmonary nodule, Dyspnea on exertion Gastrointestinal History: Reports: None Genitourinary History: Reports: Chronic Renal Insuffiency Other Genitourinary History: Contrast dye induced nephropathy, Microalbuminuria SEARCH CONSULTANT History: Reports: Musculoskeletal History: Reports: Fibromyalgia, Osteoarthritis Neurological History: Reports: None Psychiatric History: Reports: None Endocrine/Metabolic History: Reports: Diabetes, Type II, Hypothyroidism, Vitamin D Deficiency Other Endocrine/Metabolic History: DM II (diet controlled), goiter, thyroid nodule Hematologic History: Reports: Blood Transfusion(s) Immunologic History: Reports: None Oncologic (Cancer) History: Reports: Lung Dermatologic History: Reports: None - Infectious Disease History Infectious Disease History: Reports: Chicken Pox, MRSA - Past Surgical History HEENT Surgical History: Reports: Cataract Surgery Cardiovascular Surgical History: Reports: Pacer Respiratory Surgical History: Reports: Thoracotomy, Other (See Below) Other Respiratory Surgeries/Procedures: Bronchoscopy,Thoracotomy with RLL lobectomy GI Surgical History: Reports: Appendectomy, Colonoscopy Female Surgical History: Reports: Hysterectomy, Salpingo-Oophorectomy Endocrine Surgical History: Reports: Thyroidectomy Neurological Surgical History: Reports: None Musculoskeletal Surgical History: Reports: Hip Replacement Other Musculoskeletal Surgeries/Procedures:: Left total hip replacement Oncologic Surgical History: Reports: Lobectomy, Other (See Below) Other Oncologic Surgeries/Procedures: lymph node biopsy Dermatological Surgical History: Reports: None Social & Family History - Family History Family Medical History: Noncontributory - Tobacco Use Smoking Status *Q: Never Smoker Second Hand Smoke Exposure: No - Caffeine Use Caffeine Use: Reports: None - Recreational Drug Use Recreational Drug Use: No Drug Use in Last 12 Months: No - Living Situation & Occupation Occupation: Retired H&P Review of Systems - Review of Systems: Review Of Systems: See Below General: Reports: No Symptoms HEENT: Reports: No Symptoms Pulmonary: Reports: No Symptoms Cardiovascular: Reports: No Symptoms Gastrointestinal: Reports: No Symptoms Genitourinary: Reports: No Symptoms Musculoskeletal: Reports: No Symptoms, Joint Pain (right hip - controlled currenlty ) Skin: Reports: No Symptoms Psychiatric: Reports: No Symptoms Neurological: Reports: No Symptoms Hematologic/Lymphatic: Reports: No Symptoms Immunologic: Reports: No Symptoms Exam - Exam Exam: See Below - Vital Signs Vital Signs: Last Vital Signs Temp 97 F 08/02/17 14:24 Pulse 64 08/02/17 14:09 Resp 13 08/02/17 14:24 BP 130/63 08/02/17 14:24 Pulse Ox 99 08/02/17 14:24 Weight: 166 lb 9.6 oz - Exam Quality Assessment: Urinary Catheter, DVT Prophylaxis General: Alert, Oriented, Cooperative HEENT: Conjunctiva Clear, EACs Clear, EOMI, Hearing Intact, Mucosa Moist & Holt , Nares Patent, Normal Nasal Septum, Posterior Pharynx Clear, Pupils Equal, Pupils Reactive Neck: Supple, Trachea Midline. No: JVD Lungs: Clear to Auscultation, Normal Respiratory Effort Cardiovascular: Regular Rate, Regular Rhythm GI/Abdominal Exam: Normal Bowel Sounds, Soft, Non-Tender, No Organomegaly, No Distention, No Abnormal Bruit, No Mass, Pelvis Stable (Female) Exam: Deferred Rectal (Female) Exam: Deferred Back Exam: Normal Inspection, Decreased Range of Motion, Other (Scattered seborrheic keratosis) Extremities: No Pedal Edema, Normal Capillary Refill, Other (Matias bandage on right leg. Dressing dry and intact. Cooling system in place.) Peripheral Pulses: 1+: Radial (L), Radial (R), Posterior Tibial (L), Posterior Tibial (R), Dorsalis Pedis (L), Dorsalis Pedis (R) Skin: Warm, Dry, Intact Neurological: Cranial Nerves Intact (Grossly), Sensation Intact Neuro Extensive - Mental Status: Alert, Oriented x3, Normal Mood/Affect, Normal Cognition, Memory Intact Neuro Extensive - Motor, Sensory, Reflexes: CN II-XII Intact Psychiatric: Alert, Normal Affect, Normal Mood Physical Exam Comments:: Patient is lying in bed eating. RT in to see patient. No concerns at this time. - Patient Data Lab Results Last 24 hrs: Laboratory Results - last 24 hr 08/02/17 Range/Units 10:19 POC Glucose 126 H (83-110) mg/dL Consult PN Assessment/Plan POD#: 0 Procedures: Procedures ASSAY OF CK (CPK) (10/23/16) ASSAY OF LIPASE (05/03/17) ASSAY OF MAGNESIUM (10/23/16) ASSAY OF NATRIURETIC PEPTIDE (03/22/16) ASSAY OF TROPONIN QUANT (05/03/17) BIOPSY/REMOVAL LYMPH NODES (10/21/16) BLOOD TRANSFUSION SERVICE (02/10/17) BLOOD TYPING SEROLOGIC ABO (02/10/17) BLOOD TYPING SEROLOGIC RH(D) (02/10/17) C-REACTIVE PROTEIN (03/22/16) CHEST X-RAY 1 VIEW FRONTAL (05/03/17) COMPATIBILITY TEST ANTIGLOB (02/10/17) COMPLETE CBC W/AUTO DIFF WBC (05/03/17) COMPREHEN METABOLIC PANEL (05/03/17) CREATINE MB FRACTION (10/23/16) CT ANGIOGRAPHY CHEST (05/03/17) CT NECK SPINE W/O DYE (04/28/15) ECHO EXAM OF ABDOMEN (05/03/17) ELECTROCARDIOGRAM TRACING (05/03/17) EMERGENCY DEPT VISIT (05/03/17) EMERGENCY DEPT VISIT (05/29/16) EMERGENCY DEPT VISIT (05/11/16) EMERGENCY DEPT VISIT (04/28/15) EXTREMITY STUDY (05/29/16) FIBRIN DEGRADATION QUANT (05/03/17) FLUOROGUIDE FOR VEIN DEVICE (11/25/16) GAIT TRAINING THERAPY (05/18/16) GLUCOSE BLOOD TEST (10/23/16) HYDRATE IV INFUSION ADD-ON (05/03/17) HYDRATION IV INFUSION INIT (05/03/17) INSERT PICC CATH (05/03/17) INSERT TUNNELED CV CATH (11/25/16) MEASURE BLOOD OXYGEN LEVEL (05/18/16) METABOLIC PANEL TOTAL CA (10/23/16) MR-STAPH DNA AMP PROBE (07/09/17) OT EVALUATION (05/18/16) PATH CONSULT INTRAOP 1 BLOC (10/21/16) PATH CONSULT INTRAOP ADDL (10/21/16) PROTHROMBIN TIME (05/11/16) PT EVALUATION (05/18/16) RBC ANTIBODY SCREEN (02/10/17) RBC SED RATE AUTOMATED (03/22/16) ROUTINE VENIPUNCTURE (05/03/17) SELF CARE MNGMENT TRAINING (05/18/16) TDAP VACCINE 7 YRS/> IM (05/18/16) THER/PROPH/DIAG INJ IV PUSH (02/10/17) THER/PROPH/DIAG INJ SC/IM (10/23/16) THER/PROPH/DIAG IV INF ADDON (10/23/16) THER/PROPH/DIAG IV INF INIT (10/23/16) THERAPEUTIC ACTIVITIES (05/18/16) THERAPEUTIC EXERCISES (05/18/16) THROMBOPLASTIN TIME PARTIAL (05/11/16) TISSUE EXAM BY PATHOLOGIST (10/21/16) TX/PRO/DX INJ NEW DRUG ADDON (02/06/17) TX/PRO/DX INJ SAME DRUG CAR BUILDER (10/23/16) URINALYSIS AUTO W/O SCOPE (03/17/16) URINALYSIS AUTO W/SCOPE (05/03/17) URINE CULTURE/COLONY COUNT (05/11/16) X-RAY EXAM HIP UNI 1 VIEW (05/18/16) X-RAY EXAM OF ABDOMEN (03/22/16) X-RAY EXAM OF PELVIS (03/22/16) (1) S/P total hip arthroplasty SNOMED Code(s): 533215356775 Code(s): Z96.649 - PRESENCE OF UNSPECIFIED ARTIFICIAL HIP JOINT Priority: High Current Visit: Yes Qualifiers: Laterality: right Qualified Code(s): Z96.641 - Presence of right artificial hip joint (2) Osteoarthritis SNOMED Code(s): 586057537 Code(s): M19.90 - UNSPECIFIED OSTEOARTHRITIS, UNSPECIFIED SITE Priority: High Current Visit: Yes Qualifiers: Osteoarthritis location: hip Osteoarthritis type: primary Laterality: right Qualified Code(s): M16.11 - Unilateral primary osteoarthritis, right hip (3) History of lung cancer SNOMED Code(s): 067477772 Code(s): Z85.118 - PERSONAL HISTORY OF MALIGNANT NEOPLASM OF BRONCHUS AND LUNG Priority: Low Current Visit: No (4) HLD (hyperlipidemia) SNOMED Code(s): 95839529 Code(s): E78.5 - HYPERLIPIDEMIA, UNSPECIFIED Priority: Low Current Visit : No Qualifiers: Hyperlipidemia type: unspecified Qualified Code(s): E78.5 - Hyperlipidemia , unspecified (5) History of cardiac pacemaker SNOMED Code(s): 144574072 Code(s): Z95.0 - PRESENCE OF CARDIAC PACEMAKER Priority: Low Current Visit: Yes (6) Fibromyalgia SNOMED Code(s): 881118407 Code(s): M79.7 - FIBROMYALGIA Priority: Low Current Visit: Yes (7) Hypothyroidism SNOMED Code(s): 20812212 Code(s): E03.9 - HYPOTHYROIDISM, UNSPECIFIED Priority: Low Current Visit : Yes Qualifiers: Hypothyroidism type: unspecified Qualified Code(s): E03.9 - Hypothyroidism , unspecified (8) Diabetes mellitus SNOMED Code(s): 97047971 Code(s): E11.9 - TYPE 2 DIABETES MELLITUS WITHOUT COMPLICATIONS Priority: Medium Current Visit: Yes Qualifiers: Diabetes mellitus type: type 2 Diabetes mellitus complication status: with unspecified complications Diabetes mellitus terminal press operator insulin use: without terminal press operator use Qualified Code(s): E11.8 - Type 2 diabetes mellitus with unspecified complications (9) Hypertension SNOMED Code(s): 10071130 Code(s): I10 - ESSENTIAL (PRIMARY) HYPERTENSION Priority: Low Current Visit: Yes Qualifiers: Hypertension type: unspecified Qualified Code(s): I10 - Essential (primary ) hypertension (10) Congestive heart failure SNOMED Code(s): 95169437 Code(s): I50.9 - HEART FAILURE, UNSPECIFIED Priority: Low Current Visit: Yes Qualifiers: Congestive heart failure type: diastolic Congestive heart failure chronicity: chronic Qualified Code(s): I50.32 - Chronic diastolic (congestive ) heart failure (11) Chronic kidney disease SNOMED Code(s): 747666289 Code(s): N18.9 - CHRONIC KIDNEY DISEASE, UNSPECIFIED Priority: Low Current Visit: Yes Qualifiers: Chronic kidney disease stage: stage 3 (moderate) Qualified Code(s): N18.3 - Chronic kidney disease, stage 3 (moderate) Problem List Initiated/Reviewed/Updated: Yes Plan: I/P: Acute: S/P right total hip arthroplasty - post-operative day 0 -DVT prophylaxis and pain management per primary care team -PT/OT -IS/RT -Monitor oxygen saturation -Titrate oxygen as needed -Vital signs stable -Of note: she is allergic to codeine, duloxetine, fentayl, hydrocodone, and hydromorphone Osteoarthritis of right hip -Pain management per primary care team Chronic: Glaucoma HLD HTN- stable, continue home meds Hx/o cardiac pacemaker Hx/o 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 Her PCP is Dr. Perkins at [facility] in [place] Thank you for allowing us to participate in the care of this patient!! Requesting Provider: Dr. Segura Date Consult Requested: 08/02/17 Reason for Consult: Post-operative medical managment Patient History Reviewed: Yes Admission H&P Reviewed: Yes
[2017-08-02] MEDS ORDERED: Lidocaine/Prilocaine 2.5-2.5% Crm 5 GM Kit TOP PRN (15:14)
--- NOTE | 2017-08-02 15:54 | CR ---
Pelvis and right hip: AP view of the pelvis was obtained as well as crosstable lateral view of the right hip. Comparison: Previous study of 05/18/16. Left hip prosthesis is seen which appears old. Right hip prosthesis is seen. Soft tissue air is noted from the surgical procedure. Components of the prosthesis appear aligned. Underlying bony structures are intact. Slight degenerative endplate spurring is noted within the spine. Impression: 1. Satisfactory radiographic appearance of recently placed right hip prosthesis. 2. Other incidental findings. Diagnostic code #2
[2017-08-02] MEDS ORDERED: Latanoprost 0.005% Ophth Soln 2.5 ML Bottle EYEBOTH SCH (21:00)
[2017-08-02] MEDS ORDERED: amLODIPine 5 MG Tab PO SCH (21:00)
[2017-08-02] MEDS: Famotidine 20 MG Tab PO SCH (21:25)
[2017-08-02] MEDS: Psyllium Husk Powder Sugar Free 3.4 GM Packet PO SCH (21:26)
[2017-08-02] MEDS: Metoprolol Succinate 50 MG Tab.ER PO SCH (21:27)
[2017-08-02] MEDS: Docusate Sodium 100 MG Cap PO SCH (21:29)
[2017-08-02] MEDS: ceFAZolin 2 GM in Premix Bag 1 BAG IV SCH (21:30)
[2017-08-03] MEDS: ceFAZolin 2 GM in Premix Bag 1 BAG IV SCH ×2 (05:02→13:37)
[2017-08-03] MEDS: Psyllium Husk Powder Sugar Free 3.4 GM Packet PO SCH (08:32)
[2017-08-03] MEDS: Famotidine 20 MG Tab PO SCH ×3 (08:32→08:39)
[2017-08-03] MEDS: traMADol 50 MG Tab PO PRN ×2 (08:32→14:57)
[2017-08-03] MEDS: Docusate Sodium 100 MG Cap PO SCH (08:32)
[2017-08-03] MEDS: Metoprolol Succinate 50 MG Tab.ER PO SCH (08:33)
[2017-08-03] MEDS ORDERED: Rivaroxaban 10 MG Tab PO SCH (09:00)
[2017-08-03] MEDS ORDERED: Levothyroxine 75 MCG Tab PO SCH (09:00)
[2017-08-03] MEDS ORDERED: Furosemide 20 MG Tab PO SCH (09:00)
[2017-08-03] MEDS ORDERED: Lisinopril 20 MG Tab PO SCH (09:00)
[2017-08-03] MEDS ORDERED: Cholecalciferol (Vitamin D3) 1,000 Unit Tab PO SCH (09:00)
--- NOTE | 2017-08-03 09:49 | PCM.CONSN ---
- General Info Date of Service: 08/03/17 Admission Dx/Problem (Free Text): Admission Diagnosis/Problem Admission Diagnosis/Problem Osteoarthritis of hip Akua is seen this morning doing very well. Denies complaints of hip pain this am. No nausea, tolerated breakfast well. Has been up to the bathroom "at least 5 times", does well when up. Plans for DC home today. Functional Status: Reports: Pain Controlled, Tolerating Diet, Ambulating, Urinating, Incentive Spirometry. Denies: New Symptoms - Review of Systems General: Reports: No Symptoms HEENT: Reports: No Symptoms Pulmonary: Reports: No Symptoms Cardiovascular: Reports: No Symptoms Gastrointestinal: Reports: No Symptoms Genitourinary: Reports: No Symptoms Musculoskeletal: Reports: Leg Pain (minimal) Skin: Reports: No Symptoms Neurological: Reports: No Symptoms Psychiatric: Reports: No Symptoms - Patient Data Vitals - Most Recent: Last Vital Signs Temp 96.6 F 08/03/17 08:27 Pulse 59 L 08/03/17 08:27 Resp 15 08/03/17 09:00 BP 130/46 L 08/03/17 08:32 Pulse Ox 94 L 08/03/17 09:00 Weight - Most Recent: 172 lb 9.6 oz I&O - Last 24 Hours: Intake & Output 08/02/17 08/03/17 08/03/17 22:59 06:59 14:59 Intake Total 120 250 Output Total 375 875 Balance -255 -625 Lab Results Last 24 Hours: Laboratory Results - last 24 hr 08/02/17 08/02/17 08/02/17 Range/Units 10:19 15:22 15:30 WBC (3.98-10.04) K/mm3 RBC (3.98-5.22) M/mm3 Hgb (11.2-15.7) gm/L Hct (34.1-44.9) % MCV (79.4-94.8) fl MCH (25.6-32.2) pg MCHC (32.2-35.5) g/dl RDW Std Deviation (36.4-46.3) fL Plt Count (182-369) K/mm3 MPV (9.4-12.3) fl Sodium (136-145) mEq/L Potassium (3.5-5.1) mEq/L Chloride (98-107) mEq/L Carbon Dioxide (21-32) mEq/L Anion Gap (5-15) BUN (7-18) mg/dL Creatinine (0.55-1.02) mg/dL Est Cr Clr Drug Dosing mL/min Estimated GFR (MDRD) (>60) mL/min BUN/Creatinine Ratio (14-18) Glucose (83-115) mg/dL POC Glucose 126 H 84 (83-110) mg/dL Calcium (8.5-10.1) mg/dL Total Bilirubin (0.2-1.0) mg/dL AST (15-37) U/L ALT (14-59) U/L Alkaline Phosphatase (46-116) U/L Total Protein (6.4-8.2) g/dl Albumin (3.4-5.0) g/dl Globulin gm/dL Albumin/Globulin Ratio (1-2) Blood Type A POSITIVE Gel Antibody Screen Negative 08/02/17 08/03/17 08/03/17 Range/Units 22:12 06:45 06:45 WBC 5.98 (3.98-10.04) K/mm3 RBC 3.31 L (3.98-5.22) M/mm3 Hgb 11.2 (11.2-15.7) gm/L Hct 34.0 L (34.1-44.9) % MCV 102.7 H (79.4-94.8) fl MCH 33.8 H (25.6-32.2) pg MCHC 32.9 (32.2-35.5) g/dl RDW Std Deviation 44.3 (36.4-46.3) fL Plt Count 183 (182-369) K/mm3 MPV 11.0 (9.4-12.3) fl Sodium 140 (136-145) mEq/L Potassium 4.0 (3.5-5.1) mEq/L Chloride 106 (98-107) mEq/L Carbon Dioxide 25 (21-32) mEq/L Anion Gap 13.0 (5-15) BUN 21 H (7-18) mg/dL Creatinine 1.2 H (0.55-1.02) mg/dL Est Cr Clr Drug Dosing 31.75 mL/min Estimated GFR (MDRD) 43 (>60) mL/min BUN/Creatinine Ratio 17.5 (14-18) Glucose 116 H (83-115) mg/dL POC Glucose 106 (83-110) mg/dL Calcium 8.0 L (8.5-10.1) mg/dL Total Bilirubin 0.4 (0.2-1.0) mg/dL AST 44 H (15-37) U/L ALT 49 (14-59) U/L Alkaline Phosphatase 48 (46-116) U/L Total Protein 5.9 L (6.4-8.2) g/dl Albumin 2.4 L (3.4-5.0) g/dl Globulin 3.5 gm/dL Albumin/Globulin Ratio 0.7 L (1-2) Blood Type Gel Antibody Screen 08/03/17 Range/Units 06:45 WBC (3.98-10.04) K/mm3 RBC (3.98-5.22) M/mm3 Hgb (11.2-15.7) gm/L Hct (34.1-44.9) % MCV (79.4-94.8) fl MCH (25.6-32.2) pg MCHC (32.2-35.5) g/dl RDW Std Deviation (36.4-46.3) fL Plt Count (182-369) K/mm3 MPV (9.4-12.3) fl Sodium (136-145) mEq/L Potassium (3.5-5.1) mEq/L Chloride (98-107) mEq/L Carbon Dioxide (21-32) mEq/L Anion Gap (5-15) BUN (7-18) mg/dL Creatinine (0.55-1.02) mg/dL Est Cr Clr Drug Dosing mL/min Estimated GFR (MDRD) (>60) mL/min BUN/Creatinine Ratio (14-18) Glucose (83-115) mg/dL POC Glucose 92 (83-110) mg/dL Calcium (8.5-10.1) mg/dL Total Bilirubin (0.2-1.0) mg/dL AST (15-37) U/L ALT (14-59) U/L Alkaline Phosphatase (46-116) U/L Total Protein (6.4-8.2) g/dl Albumin (3.4-5.0) g/dl Globulin gm/dL Albumin/Globulin Ratio (1-2) Blood Type Gel Antibody Screen Med Orders - Current: Current Medications Amlodipine Besylate (Norvasc) 10 mg PO BEDTIME [facility] Last Admin: 08/02/17 21:26 Dose: 10 mg Bisacodyl (Dulcolax) 5 mg PO DAILY PRN PRN Reason: Constipation Cholecalciferol (Vitamin D3) 2,000 units PO DAILY [facility] Last Admin: 08/03/17 08:32 Dose: 2,000 units Docusate Sodium (Colace) 100 mg PO BID [facility] Last Admin: 08/03/17 08:32 Dose: 100 mg Famotidine (Pepcid) 20 mg PO DAILY [facility] Last Admin: 08/03/17 08:39 Dose: Not Given Furosemide (Lasix) 20 mg PO DAILY [facility] Last Admin: 08/03/17 08:31 Dose: 20 mg Cefazolin Sodium/Dextrose 2 gm (/ Premix) 50 mls @ 100 mls/hr IV Q8H [facility] Stop: 08/03/17 13:29 Last Admin: 08/03/17 05:02 Dose: 100 mls/hr Latanoprost (Xalatan 0.005% Ophth Soln) 0 ml EYEBOTH BEDTIME [facility] Last Admin: 08/02/17 21:29 Dose: 1 drop Levothyroxine Sodium (Levothyroxine) 75 mcg PO DAILY [facility] Last Admin: 08/03/17 08:32 Dose: 75 mcg Lidocaine/Prilocaine (Emla Crm) 0 gm TOP Q6H PRN PRN Reason: Prior to accessing port Lisinopril (Prinivil) 40 mg PO DAILY [facility] Last Admin: 08/03/17 08:32 Dose: 40 mg Metoprolol Succinate (Toprol Xl) 50 mg PO BID [facility] Last Admin: 08/03/17 08:33 Dose: Not Given Naloxone HCl (Narcan) 0.1 mg IVPUSH Q5M PRN PRN Reason: Oversedation Ondansetron HCl (Zofran) 4 mg IVPUSH Q6H PRN PRN Reason: Nausea/Vomiting Psyllium Husk (Metamucil Sugar Free) 1 packet PO BID [facility] Last Admin: 08/03/17 08:32 Dose: 1 packet Rivaroxaban (Xarelto) 10 mg PO DAILY [facility] Last Admin: 08/03/17 08:33 Dose: 10 mg Senna (Senna) 8.6 mg PO BID PRN PRN Reason: Constipation Tramadol HCl (Ultram) 50 - 100 mg PO Q4H PRN PRN Reason: Pain Last Admin: 08/03/17 08:32 Dose: 50 mg Vancomycin HCl (Pharmacy To Dose - Vancomycin) 0 dose .XX ASDIRECTED PRN PRN Reason: RX TO CALCULATE POSTOP VANCO Stop: 08/03/17 12:01 Discontinued Medications Bupivacaine HCl (Marcaine 0.25%) Confirm Administered Dose 30 ml .ROUTE .STK- MED ONE Stop: 08/02/17 10:31 Last Admin: 08/02/17 12:52 Dose: 30 ml Cefazolin Sodium (Ancef) Confirm Administered Dose 2 gm .ROUTE .STK-MED ONE Stop: 08/02/17 10:24 Last Admin: 08/02/17 12:46 Dose: 2 gm Cefazolin Sodium (Ancef) Confirm Administered Dose 2 gm .ROUTE .STK-MED ONE Stop: 08/02/17 10:31 Morphine Sulfate 8 mg/Epinephrine HCl 0.3 mg/Cefuroxime Sodium 750 mg/Ketorolac Tromethamine 30 mg/Sodium Chloride 27.9 ml 0 mg .XX ONETIME ONE Stop: 08/02/17 11:46 Last Admin: 08/02/17 12:51 Dose: 788.3 mg Diphenhydramine HCl (Benadryl) 25 mg IVPUSH Q6H PRN PRN Reason: Pruritis Stop: 08/02/17 15:00 Famotidine (Pepcid) 20 mg PO BID [facility] Last Admin: 08/03/17 08:32 Dose: 20 mg Fentanyl (Sublimaze) Confirm Administered Dose 100 mcg .ROUTE .STK-MED ONE Stop: 08/02/17 10:25 Haloperidol Lactate (Haldol) 1 mg IVPUSH ONETIME ONE Stop: 08/02/17 14:01 Last Admin: 08/02/17 16:52 Dose: Not Given Lactated Ringer's (Ringers, Lactated) 1,000 mls @ 125 mls/hr IV ASDIRECTED [facility] Last Admin: 08/02/17 10:15 Dose: 125 mls/hr Lidocaine HCl (Xylocaine-Mpf 1%) Confirm Administered Dose 0 mls @ as directed .ROUTE .STK-MED ONE Stop: 08/02/17 10:24 Lactated Ringer's (Ringers, Lactated) Confirm Administered Dose 1,000 mls @ as directed .ROUTE .STK-MED ONE Stop: 08/02/17 10:24 Vancomycin HCl 1 gm/ Sodium (Chloride) 250 mls @ 250 mls/hr IV ONETIME ONE Stop: 08/02/17 11:59 Last Admin: 08/02/17 11:05 Dose: 250 mls/hr Vancomycin HCl 1 gm/ Sodium (Chloride) 250 mls @ 250 mls/hr IV ONETIME ONE Stop: 08/03/17 13:59 Iodine (Iodine 2% Mild Tincture) Confirm Administered Dose 30 ml .ROUTE .STK- MED ONE Stop: 08/02/17 10:31 Last Admin: 08/02/17 12:44 Dose: 18 ml Ketamine HCl (Ketalar) Confirm Administered Dose 500 mg .ROUTE .STK-MED ONE Stop: 08/02/17 10:25 Lidocaine/Sodium Bicarbonate (Buffered Lidocaine 1% In Ns 8.4%) 0.25 ml IV ONETIME PRN PRN Reason: Prior to IV Start Stop: 08/02/17 18:00 Magnesium Hydroxide (Milk Of Magnesia) 30 ml PO BID PRN PRN Reason: Constipation Midazolam HCl (Versed 1 Mg/Ml) Confirm Administered Dose 2 mg .ROUTE .STK-MED ONE Stop: 08/02/17 10:25 Morphine Sulfate (Duramorph Pf) Confirm Administered Dose 10 mg .ROUTE .STK-MED ONE Stop: 08/02/17 10:25 Ondansetron HCl (Zofran) Confirm Administered Dose 4 mg .ROUTE .STK-MED ONE Stop: 08/02/17 10:24 Ondansetron HCl (Zofran) 4 mg IVPUSH ONETIME PRN PRN Reason: Nausea/Vomiting Stop: 08/02/17 15:00 Phenylephrine HCl (Robert-Synephrine) Confirm Administered Dose 10 mg .ROUTE .STK- MED ONE Stop: 08/02/17 10:24 Propofol (Diprivan 20 Ml) Confirm Administered Dose 400 mg .ROUTE .STK-MED ONE Stop: 08/02/17 10:24 Scopolamine (Transderm-Scop) 1.5 mg TRDERM Q72H ONE Stop: 08/02/17 11:31 Last Admin: 08/02/17 10:30 Dose: 1.5 mg Sodium Chloride (Saline Flush) 10 ml FLUSH ASDIRECTED PRN PRN Reason: Keep Vein Open Stop: 08/02/17 18:00 Tranexamic Acid (Cyklokapron) Confirm Administered Dose 1,000 mg .ROUTE .STK- MED ONE Stop: 08/02/17 10:30 Last Admin: 08/02/17 12:53 Dose: 1,000 mg Vancomycin HCl (Vancomycin) 1 gm .XX ONETIME ONE Stop: 08/02/17 11:01 Last Admin: 08/02/17 12:53 Dose: 1 gm - Exam Quality Assessment: DVT Prophylaxis General: Alert, Oriented, Cooperative, No Acute Distress HEENT: Pupils Equal, EOMI, Mucous Membr. Moist/[place] Neck: Supple Lungs: Clear to Auscultation, Normal Respiratory Effort Cardiovascular: Regular Rate, Regular Rhythm GI/Abdominal Exam: Normal Bowel Sounds, Soft, Non-Tender (Female) Exam: Deferred Extremities: Normal Inspection, Normal Capillary Refill, Other (teds and SCD's in place; right thigh is soft. CMS is + and = distally to LE. ) Peripheral Pulses: 1+: Dorsalis Pedis (L), Dorsalis Pedis (R) Skin: Warm, Dry Neurological: No New Focal Deficit Psy/Mental Status: Alert, Normal Affect, Normal Mood Consult PN Assessment/Plan POD#: 1 Procedures: Procedures ASSAY OF CK (CPK) (10/23/16) ASSAY OF LIPASE (05/03/17) ASSAY OF MAGNESIUM (10/23/16) ASSAY OF NATRIURETIC PEPTIDE (03/22/16) ASSAY OF TROPONIN QUANT (05/03/17) BIOPSY/REMOVAL LYMPH NODES (10/21/16) BLOOD TRANSFUSION SERVICE (02/10/17) BLOOD TYPING SEROLOGIC ABO (02/10/17) BLOOD TYPING SEROLOGIC RH(D) (02/10/17) C-REACTIVE PROTEIN (03/22/16) CHEST X-RAY 1 VIEW FRONTAL (05/03/17) COMPATIBILITY TEST ANTIGLOB (02/10/17) COMPLETE CBC W/AUTO DIFF WBC (05/03/17) COMPREHEN METABOLIC PANEL (05/03/17) CREATINE MB FRACTION (10/23/16) CT ANGIOGRAPHY CHEST (05/03/17) CT NECK SPINE W/O DYE (04/28/15) ECHO EXAM OF ABDOMEN (05/03/17) ELECTROCARDIOGRAM TRACING (05/03/17) EMERGENCY DEPT VISIT (05/03/17) EMERGENCY DEPT VISIT (05/29/16) EMERGENCY DEPT VISIT (05/11/16) EMERGENCY DEPT VISIT (04/28/15) EXTREMITY STUDY (05/29/16) FIBRIN DEGRADATION QUANT (05/03/17) FLUOROGUIDE FOR VEIN DEVICE (11/25/16) GAIT TRAINING THERAPY (05/18/16) GLUCOSE BLOOD TEST (10/23/16) HYDRATE IV INFUSION ADD-ON (05/03/17) HYDRATION IV INFUSION INIT (05/03/17) INSERT PICC CATH (05/03/17) INSERT TUNNELED CV CATH (11/25/16) MEASURE BLOOD OXYGEN LEVEL (05/18/16) METABOLIC PANEL TOTAL CA (10/23/16) MR-STAPH DNA AMP PROBE (07/09/17) OT EVALUATION (05/18/16) PATH CONSULT INTRAOP 1 BLOC (10/21/16) PATH CONSULT INTRAOP ADDL (10/21/16) PROTHROMBIN TIME (05/11/16) PT EVALUATION (05/18/16) RBC ANTIBODY SCREEN (02/10/17) RBC SED RATE AUTOMATED (03/22/16) ROUTINE VENIPUNCTURE (05/03/17) SELF CARE MNGMENT TRAINING (05/18/16) TDAP VACCINE 7 YRS/> IM (05/18/16) THER/PROPH/DIAG INJ IV PUSH (02/10/17) THER/PROPH/DIAG INJ SC/IM (10/23/16) THER/PROPH/DIAG IV INF ADDON (10/23/16) THER/PROPH/DIAG IV INF INIT (10/23/16) THERAPEUTIC ACTIVITIES (05/18/16) THERAPEUTIC EXERCISES (05/18/16) THROMBOPLASTIN TIME PARTIAL (05/11/16) TISSUE EXAM BY PATHOLOGIST (10/21/16) TX/PRO/DX INJ NEW DRUG ADDON (02/06/17) TX/PRO/DX INJ SAME DRUG ASSISTANT PROFESSOR OF PSYCHOLOGY (10/23/16) URINALYSIS AUTO W/O SCOPE (03/17/16) URINALYSIS AUTO W/SCOPE (05/03/17) URINE CULTURE/COLONY COUNT (05/11/16) X-RAY EXAM HIP UNI 1 VIEW (05/18/16) X-RAY EXAM OF ABDOMEN (03/22/16) X-RAY EXAM OF PELVIS (03/22/16) (1) S/P total hip arthroplasty SNOMED Code(s): 986519062183 Code(s): Z96.649 - PRESENCE OF UNSPECIFIED ARTIFICIAL HIP JOINT Priority: High Current Visit: Yes Qualifiers: Laterality: right Qualified Code(s): Z96.641 - Presence of right artificial hip joint (2) Osteoarthritis SNOMED Code(s): 931801287 Code(s): M19.90 - UNSPECIFIED OSTEOARTHRITIS, UNSPECIFIED SITE Priority: High Current Visit: Yes Qualifiers: Osteoarthritis location: hip Osteoarthritis type: primary Laterality: right Qualified Code(s): M16.11 - Unilateral primary osteoarthritis, right hip (3) Diabetes mellitus SNOMED Code(s): 88554150 Code(s): E11.9 - TYPE 2 DIABETES MELLITUS WITHOUT COMPLICATIONS Priority: Medium Current Visit: Yes Qualifiers: Diabetes mellitus type: type 2 Diabetes mellitus complication status: with unspecified complications Diabetes mellitus [facility] insulin use: without [facility] use Qualified Code(s): E11.8 - Type 2 diabetes mellitus with unspecified complications (4) History of lung cancer SNOMED Code(s): 455110049 Code(s): Z85.118 - PERSONAL HISTORY OF MALIGNANT NEOPLASM OF BRONCHUS AND LUNG Priority: Low Current Visit: No (5) Reflux esophagitis SNOMED Code(s): 560894047 Code(s): K21.0 - GASTRO-ESOPHAGEAL REFLUX DISEASE WITH ESOPHAGITIS Priority : Medium Current Visit: No (6) HLD (hyperlipidemia) SNOMED Code(s): 26670056 Code(s): E78.5 - HYPERLIPIDEMIA, UNSPECIFIED Priority: Low Current Visit : No Qualifiers: Hyperlipidemia type: unspecified Qualified Code(s): E78.5 - Hyperlipidemia , unspecified (7) Hypothyroidism SNOMED Code(s): 27370166 Code(s): E03.9 - HYPOTHYROIDISM, UNSPECIFIED Priority: Low Current Visit : No Qualifiers: Hypothyroidism type: unspecified Qualified Code(s): E03.9 - Hypothyroidism , unspecified Problem List Initiated/Reviewed/Updated: Yes Plan: I/P: Acute: S/P left total Right arthroplasty - post-operative day 1 -DVT prophylaxis and pain management per primary care team -PT/OT -IS/RT -VSS -Hgb 11.2 -Doing very well Chronic: Diabetes type 2: Accuchecks, SSI coverage PRN- sugars under fair to good control HTN- good control HLD CKD- creatinine 1.2 today Hypothyroidism Hx of lung cancer Plan: SW/CM for discharge planning--OK for DC home today from Hospitalist standpoint; doing very well. GI prophylaxis She is a full code. Her PCP is Dr. Perkins at [facility] in [place]
[2017-08-03 12:32] VITALS: BP 135/53
--- NOTE | 2017-08-03 13:55 | PCM48HPAN ---
Post Anesthesia Note - EVALUATION WITHIN 48HRS OF ANESTHETIC Vital Signs in Normal Range: Yes Patient Participated in Evaluation: Yes Respiratory Function Stable: Yes Airway Patent: Yes Cardiovascular Function Stable: Yes Hydration Status Stable: Yes Pain Control Satisfactory: Yes Nausea and Vomiting Control Satisfactory: Yes Mental Status Recovered: Yes
--- NOTE | 2017-08-04 06:24 | PCM.SURGPN ---
- General Info Date of Service: 08/03/17 POD#: 1 Functional Status: Reports: Pain Controlled, Tolerating Diet, Ambulating, Urinating, Incentive Spirometry, Other (The pt feels prepared for discharge to home.) - Review of Systems Musculoskeletal: Reports: Other (The pt met inpatient therapy goals.) - Patient Data Vitals - Most Recent: Last Vital Signs Temp 98.2 F 08/03/17 12:14 Pulse 61 08/03/17 12:14 Resp 18 08/03/17 12:14 BP 135/53 L 08/03/17 12:14 Pulse Ox 95 08/03/17 12:14 Weight - Most Recent: 172 lb 9.6 oz I&O - Last 24 Hours: Intake & Output 08/03/17 08/03/17 08/04/17 14:59 22:59 06:59 Intake Total 360 990 Output Total 650 Balance 360 340 Lab Results Last 24 Hrs: Laboratory Results - last 24 hr 08/03/17 08/03/17 08/03/17 Range/Units 06:45 06:45 06:45 WBC 5.98 (3.98-10.04) K/mm3 RBC 3.31 L (3.98-5.22) M/mm3 Hgb 11.2 (11.2-15.7) gm/L Hct 34.0 L (34.1-44.9) % MCV 102.7 H (79.4-94.8) fl MCH 33.8 H (25.6-32.2) pg MCHC 32.9 (32.2-35.5) g/dl RDW Std Deviation 44.3 (36.4-46.3) fL Plt Count 183 (182-369) K/mm3 MPV 11.0 (9.4-12.3) fl Sodium 140 (136-145) mEq/L Potassium 4.0 (3.5-5.1) mEq/L Chloride 106 (98-107) mEq/L Carbon Dioxide 25 (21-32) mEq/L Anion Gap 13.0 (5-15) BUN 21 H (7-18) mg/dL Creatinine 1.2 H (0.55-1.02) mg/dL Est Cr Clr Drug Dosing 31.75 mL/min Estimated GFR (MDRD) 43 (>60) mL/min BUN/Creatinine Ratio 17.5 (14-18) Glucose 116 H (83-115) mg/dL POC Glucose 92 (83-110) mg/dL Calcium 8.0 L (8.5-10.1) mg/dL Total Bilirubin 0.4 (0.2-1.0) mg/dL AST 44 H (15-37) U/L ALT 49 (14-59) U/L Alkaline Phosphatase 48 (46-116) U/L Total Protein 5.9 L (6.4-8.2) g/dl Albumin 2.4 L (3.4-5.0) g/dl Globulin 3.5 gm/dL Albumin/Globulin Ratio 0.7 L (1-2) 08/03/17 Range/Units 11:04 WBC (3.98-10.04) K/mm3 RBC (3.98-5.22) M/mm3 Hgb (11.2-15.7) gm/L Hct (34.1-44.9) % MCV (79.4-94.8) fl MCH (25.6-32.2) pg MCHC (32.2-35.5) g/dl RDW Std Deviation (36.4-46.3) fL Plt Count (182-369) K/mm3 MPV (9.4-12.3) fl Sodium (136-145) mEq/L Potassium (3.5-5.1) mEq/L Chloride (98-107) mEq/L Carbon Dioxide (21-32) mEq/L Anion Gap (5-15) BUN (7-18) mg/dL Creatinine (0.55-1.02) mg/dL Est Cr Clr Drug Dosing mL/min Estimated GFR (MDRD) (>60) mL/min BUN/Creatinine Ratio (14-18) Glucose (83-115) mg/dL POC Glucose 137 H (83-110) mg/dL Calcium (8.5-10.1) mg/dL Total Bilirubin (0.2-1.0) mg/dL AST (15-37) U/L ALT (14-59) U/L Alkaline Phosphatase (46-116) U/L Total Protein (6.4-8.2) g/dl Albumin (3.4-5.0) g/dl Globulin gm/dL Albumin/Globulin Ratio (1-2) Med Orders - Current: Current Medications Discontinued Medications Amlodipine Besylate (Norvasc) 10 mg PO BEDTIME [facility] Last Admin: 08/02/17 21:26 Dose: 10 mg Bisacodyl (Dulcolax) 5 mg PO DAILY PRN PRN Reason: Constipation Bupivacaine HCl (Marcaine 0.25%) Confirm Administered Dose 30 ml .ROUTE .STK- MED ONE Stop: 08/02/17 10:31 Last Admin: 08/02/17 12:52 Dose: 30 ml Cefazolin Sodium (Ancef) Confirm Administered Dose 2 gm .ROUTE .STK-MED ONE Stop: 08/02/17 10:24 Last Admin: 08/02/17 12:46 Dose: 2 gm Cefazolin Sodium (Ancef) Confirm Administered Dose 2 gm .ROUTE .STK-MED ONE Stop: 08/02/17 10:31 Cholecalciferol (Vitamin D3) 2,000 units PO DAILY [facility] Last Admin: 08/03/17 08:32 Dose: 2,000 units Morphine Sulfate 8 mg/Epinephrine HCl 0.3 mg/Cefuroxime Sodium 750 mg/Ketorolac Tromethamine 30 mg/Sodium Chloride 27.9 ml 0 mg .XX ONETIME ONE Stop: 08/02/17 11:46 Last Admin: 08/02/17 12:51 Dose: 788.3 mg Diphenhydramine HCl (Benadryl) 25 mg IVPUSH Q6H PRN PRN Reason: Pruritis Stop: 08/02/17 15:00 Docusate Sodium (Colace) 100 mg PO BID [facility] Last Admin: 08/03/17 08:32 Dose: 100 mg Famotidine (Pepcid) 20 mg PO BID [facility] Last Admin: 08/03/17 08:32 Dose: 20 mg Famotidine (Pepcid) 20 mg PO DAILY [facility] Last Admin: 08/03/17 08:39 Dose: Not Given Fentanyl (Sublimaze) Confirm Administered Dose 100 mcg .ROUTE .STK-MED ONE Stop: 08/02/17 10:25 Furosemide (Lasix) 20 mg PO DAILY [facility] Last Admin: 08/03/17 08:31 Dose: 20 mg Haloperidol Lactate (Haldol) 1 mg IVPUSH ONETIME ONE Stop: 08/02/17 14:01 Last Admin: 08/02/17 16:52 Dose: Not Given Heparin Sodium (Porcine) (Heparin Lock Flush 100 Units/Ml) 500 units FLUSH ASDIRECTED PRN PRN Reason: deaccess port Last Admin: 08/03/17 14:48 Dose: 500 units Lactated Ringer's (Ringers, Lactated) 1,000 mls @ 125 mls/hr IV ASDIRECTED [facility] Last Admin: 08/02/17 10:15 Dose: 125 mls/hr Lidocaine HCl (Xylocaine-Mpf 1%) Confirm Administered Dose 0 mls @ as directed .ROUTE .STK-MED ONE Stop: 08/02/17 10:24 Lactated Ringer's (Ringers, Lactated) Confirm Administered Dose 1,000 mls @ as directed .ROUTE .STK-MED ONE Stop: 08/02/17 10:24 Vancomycin HCl 1 gm/ Sodium (Chloride) 250 mls @ 250 mls/hr IV ONETIME ONE Stop: 08/02/17 11:59 Last Admin: 08/02/17 11:05 Dose: 250 mls/hr Cefazolin Sodium/Dextrose 2 gm (/ Premix) 50 mls @ 100 mls/hr IV Q8H [facility] Stop: 08/03/17 13:29 Last Admin: 08/03/17 13:37 Dose: 100 mls/hr Vancomycin HCl 1 gm/ Sodium (Chloride) 250 mls @ 250 mls/hr IV ONETIME ONE Stop: 08/03/17 13:59 Iodine (Iodine 2% Mild Tincture) Confirm Administered Dose 30 ml .ROUTE .STK- MED ONE Stop: 08/02/17 10:31 Last Admin: 08/02/17 12:44 Dose: 18 ml Ketamine HCl (Ketalar) Confirm Administered Dose 500 mg .ROUTE .STK-MED ONE Stop: 08/02/17 10:25 Latanoprost (Xalatan 0.005% Ophth Soln) 0 ml EYEBOTH BEDTIME [facility] Last Admin: 08/02/17 21:29 Dose: 1 drop Levothyroxine Sodium (Levothyroxine) 75 mcg PO DAILY [facility] Last Admin: 08/03/17 08:32 Dose: 75 mcg Lidocaine/Prilocaine (Emla Crm) 0 gm TOP Q6H PRN PRN Reason: Prior to accessing port Lidocaine/Sodium Bicarbonate (Buffered Lidocaine 1% In Ns 8.4%) 0.25 ml IV ONETIME PRN PRN Reason: Prior to IV Start Stop: 08/02/17 18:00 Lisinopril (Prinivil) 40 mg PO DAILY [facility] Last Admin: 08/03/17 08:32 Dose: 40 mg Magnesium Hydroxide (Milk Of Magnesia) 30 ml PO BID PRN PRN Reason: Constipation Metoprolol Succinate (Toprol Xl) 50 mg PO BID [facility] Last Admin: 08/03/17 08:33 Dose: Not Given Midazolam HCl (Versed 1 Mg/Ml) Confirm Administered Dose 2 mg .ROUTE .STK-MED ONE Stop: 08/02/17 10:25 Morphine Sulfate (Duramorph Pf) Confirm Administered Dose 10 mg .ROUTE .STK-MED ONE Stop: 08/02/17 10:25 Naloxone HCl (Narcan) 0.1 mg IVPUSH Q5M PRN PRN Reason: Oversedation Ondansetron HCl (Zofran) Confirm Administered Dose 4 mg .ROUTE .STK-MED ONE Stop: 08/02/17 10:24 Ondansetron HCl (Zofran) 4 mg IVPUSH Q6H PRN PRN Reason: Nausea/Vomiting Last Admin: 08/03/17 10:15 Dose: 4 mg Ondansetron HCl (Zofran) 4 mg IVPUSH ONETIME PRN PRN Reason: Nausea/Vomiting Stop: 08/02/17 15:00 Phenylephrine HCl (Robert-Synephrine) Confirm Administered Dose 10 mg .ROUTE .STK- MED ONE Stop: 08/02/17 10:24 Propofol (Diprivan 20 Ml) Confirm Administered Dose 400 mg .ROUTE .STK-MED ONE Stop: 08/02/17 10:24 Psyllium Husk (Metamucil Sugar Free) 1 packet PO BID [facility] Last Admin: 08/03/17 08:32 Dose: 1 packet Rivaroxaban (Xarelto) 10 mg PO DAILY [facility] Last Admin: 08/03/17 08:33 Dose: 10 mg Scopolamine (Transderm-Scop) 1.5 mg TRDERM Q72H ONE Stop: 08/02/17 11:31 Last Admin: 08/02/17 10:30 Dose: 1.5 mg Senna (Senna) 8.6 mg PO BID PRN PRN Reason: Constipation Sodium Chloride (Saline Flush) 10 ml FLUSH ASDIRECTED PRN PRN Reason: Keep Vein Open Stop: 08/02/17 18:00 Tramadol HCl (Ultram) 50 - 100 mg PO Q4H PRN PRN Reason: Pain Last Admin: 08/03/17 14:57 Dose: 50 mg Tranexamic Acid (Cyklokapron) Confirm Administered Dose 1,000 mg .ROUTE .STK- MED ONE Stop: 08/02/17 10:30 Last Admin: 08/02/17 12:53 Dose: 1,000 mg Vancomycin HCl (Vancomycin) 1 gm .XX ONETIME ONE Stop: 08/02/17 11:01 Last Admin: 08/02/17 12:53 Dose: 1 gm Vancomycin HCl (Pharmacy To Dose - Vancomycin) 0 dose .XX ASDIRECTED PRN PRN Reason: RX TO CALCULATE POSTOP VANCO Stop: 08/03/17 12:01 - Exam Wound/Incisions: Dressing Dry and Intact General: Alert, Cooperative, No Acute Distress Lungs: Normal Respiratory Effort Extremities: Other (NVS intact for BLE. Right thigh soft.) - Problem List Review Problem List Initiated/Reviewed/Updated: Yes - My Orders Last 24 Hours: Active Orders 24 hr Category Date Time Status Ready for Discharge [RC] PER UNIT ROUTINE Care 08/03/17 10:00 Active - Assessment Assessment (Free Text/Narrative):: POD#1 - right SARI - Plan Plan (Free Text/Narrative):: 1. Hgb 11.2. 2. Xarelto, TEDs, frequent mobility. 3. Discharge to home today. 4. Medical management per Hospitalist service. The pt's case was discussed with Dr. Segura.
--- NOTE | 2017-08-04 06:26 | PCM.DCSUM1 ---
Discharge Summary - Hospital Course Brief History: Akua is an 82 yo female who underwent right SARI with Dr. Segura on 08-02-17. The procedure was completed under spinal anesthesia with MAC. The pt tolerated the procedure well and was admitted to the Medical-Surgical unit. The pt received Ancef and vancomycin yuliya-operatively. She participated in P.T. and O.T. and progressed well. She was allowed to WBAT and used a FWW for mobility. SARI precautions were followed. The pt's surgical wound was dressed with a Mepilex dressing and remained clean and dry. On POD#1, the pt was started on Xarelto 10mg PO daily for VTE prophylaxis. The pt used TEDs and SCDs also. On POD#1, the pt's hemoglobin was 11.2. Medial management was provided by the Hospitalist service and the pt's hospital course was uneventful. On POD#1, the pt was deemed appropriate for discharge to home with her family. - Discharge Data Discharge Date: 08/03/17 Discharge Disposition: Home, Self-Care 01 Condition: Good - Patient Summary/Data Consults: Consultations 08/02/17 11:57 Consult to Physician [CONS] Routine OT Evaluation and Treatment [CONS] Routine 08/02/17 12:02 PT Evaluation and Treatment [CONS] Routine - Patient Instructions Diet: Usual Diet as Tolerated Activity: Apply Ice, As Tolerated, Elevate Extremity, Full Weight Bearing Activity, Other: Follow the total hip arthroplasty precautions. Driving: Do Not Drive Showering/Bathing: May Shower Wound/Incision Care: Keep Operative Site/Wound Site Clean and Dry, Do NOT Change Dressing Notify Provider of: Fever, Increased Pain, Swelling and Redness, Drainage, Nausea and/or Vomiting Other/Special Instructions: Please get up and moving around every hour while awake. This helps to prevent blood clots. Please take the Xarelto blood thinner medication daily. The medication is being used for blood clot prevention so please use the medication twice daily as directed. Please wear the JOHNATHAN hose during the day and remove them at night. Please schedule for P.T. Complete the P.T. exercises and stretches that were instructed in the Hospital. Follow the total hip arthroplasty precautions. Please use the pain medication as needed. The medication may cause drowsiness and/or constipation. You could use a stool softener like docusate sodium or Colace 100mg twice daily and/or a laxative like polyethylene glycol or Miralax daily for constipation. Contact your primary care provider for further instructions if you are constipated. Please schedule an appointment with your primary care provider for 'routine post-op care'. Use the incentive spirometer often. Please place ice to the hip often. Please elevate the limb to decrease swelling. Keep the Mepilex dressing in place until follow-up. Please call [phone] with questions or concerns. - Discharge Plan Prescriptions/Med Rec: Docusate Sodium [Colace] 100 mg PO BID PRN #30 cap PRN Reason: Constipation Rivaroxaban [Xarelto] 10 mg PO DAILY #35 tablet traMADol [Ultram] 50 mg PO Q4H PRN #60 tablet PRN Reason: Pain Home Medications: Home Meds Levothyroxine 75 mcg PO DAILY 12/10/15 [History] Lisinopril 40 mg PO DAILY 12/10/15 [History] Metoprolol Succinate 50 mg PO BID 12/10/15 [History] Furosemide [Lasix] 20 mg PO DAILY #30 tablet 03/17/16 [Rx] Cholecalciferol (Vitamin D3) [Vitamin D3] 2,000 units PO DAILY 05/15/16 [History ] Latanoprost 1 drop OP BEDTIME 10/20/16 [History] [place]-3/DHA/Epa/Fish Oil [[place]-3 Fish Oil 1,000 MG Sfgl] 1,000 mg PO BEDTIME [History] Lidocaine/Prilocaine [EMLA Crm] 1 gm TOP Q6H PRN #1 tube 11/25/16 [Rx] Prochlorperazine [Compazine] 10 mg PO QID PRN 05/03/17 [History] amLODIPine [Norvasc] 10 mg PO BEDTIME 05/03/17 [History] Ondansetron HCl [Zofran] 4 mg PO Q6H PRN 07/30/17 [History] Pantoprazole Sodium [Protonix] 40 mg PO DAILY 07/30/17 [History] Psyllium Husk [Metamucil] 1 tsp PO BID 07/30/17 [History] Docusate Sodium [Colace] 100 mg PO BID PRN #30 cap 08/03/17 [Rx] Rivaroxaban [Xarelto] 10 mg PO DAILY #35 tablet 08/03/17 [Rx] traMADol [Ultram] 50 mg PO Q4H PRN #60 tablet 08/03/17 [Rx] Patient Handouts: Total Hip Replacement, [id number], Hand Washing, Easy-to- Read, Surgical Site Infections FAQs - CERON, Total Hip Replacement, Care After, [id number], MRSA FAQs - CERON Referrals: Domonique Richards PA-C [Physician Tallow Refiner] - 08/10/17 10:00 am (Please follow up with Domonique Richards on WednesdayAugust 10 at 10:00am and Wednesday at 10:00am.) Mushtaq Andrews MD [Primary Care Provider] - 08/13/17 2:00 pm (Please follow up with Dr. Andrews on WednesdayAugust 13 at 2:00pm) - Patient Data Vitals - Most Recent: Last Vital Signs Temp 98.2 F 08/03/17 12:14 Pulse 61 08/03/17 12:14 Resp 18 08/03/17 12:14 BP 135/53 L 08/03/17 12:14 Pulse Ox 95 08/03/17 12:14 Weight - Most Recent: 172 lb 9.6 oz I&O - Last 24 hours: Intake & Output 08/03/17 08/03/17 08/04/17 14:59 22:59 06:59 Intake Total 360 990 Output Total 650 Balance 360 340 Lab Results - Last 24 hrs: Laboratory Results - last 24 hr 08/03/17 08/03/17 08/03/17 Range/Units 06:45 06:45 06:45 WBC 5.98 (3.98-10.04) K/mm3 RBC 3.31 L (3.98-5.22) M/mm3 Hgb 11.2 (11.2-15.7) gm/L Hct 34.0 L (34.1-44.9) % MCV 102.7 H (79.4-94.8) fl MCH 33.8 H (25.6-32.2) pg MCHC 32.9 (32.2-35.5) g/dl RDW Std Deviation 44.3 (36.4-46.3) fL Plt Count 183 (182-369) K/mm3 MPV 11.0 (9.4-12.3) fl Sodium 140 (136-145) mEq/L Potassium 4.0 (3.5-5.1) mEq/L Chloride 106 (98-107) mEq/L Carbon Dioxide 25 (21-32) mEq/L Anion Gap 13.0 (5-15) BUN 21 H (7-18) mg/dL Creatinine 1.2 H (0.55-1.02) mg/dL Est Cr Clr Drug Dosing 31.75 mL/min Estimated GFR (MDRD) 43 (>60) mL/min BUN/Creatinine Ratio 17.5 (14-18) Glucose 116 H (83-115) mg/dL POC Glucose 92 (83-110) mg/dL Calcium 8.0 L (8.5-10.1) mg/dL Total Bilirubin 0.4 (0.2-1.0) mg/dL AST 44 H (15-37) U/L ALT 49 (14-59) U/L Alkaline Phosphatase 48 (46-116) U/L Total Protein 5.9 L (6.4-8.2) g/dl Albumin 2.4 L (3.4-5.0) g/dl Globulin 3.5 gm/dL Albumin/Globulin Ratio 0.7 L (1-2) 08/03/17 Range/Units 11:04 WBC (3.98-10.04) K/mm3 RBC (3.98-5.22) M/mm3 Hgb (11.2-15.7) gm/L Hct (34.1-44.9) % MCV (79.4-94.8) fl MCH (25.6-32.2) pg MCHC (32.2-35.5) g/dl RDW Std Deviation (36.4-46.3) fL Plt Count (182-369) K/mm3 MPV (9.4-12.3) fl Sodium (136-145) mEq/L Potassium (3.5-5.1) mEq/L Chloride (98-107) mEq/L Carbon Dioxide (21-32) mEq/L Anion Gap (5-15) BUN (7-18) mg/dL Creatinine (0.55-1.02) mg/dL Est Cr Clr Drug Dosing mL/min Estimated GFR (MDRD) (>60) mL/min BUN/Creatinine Ratio (14-18) Glucose (83-115) mg/dL POC Glucose 137 H (83-110) mg/dL Calcium (8.5-10.1) mg/dL Total Bilirubin (0.2-1.0) mg/dL AST (15-37) U/L ALT (14-59) U/L Alkaline Phosphatase (46-116) U/L Total Protein (6.4-8.2) g/dl Albumin (3.4-5.0) g/dl Globulin gm/dL Albumin/Globulin Ratio (1-2) Med Orders - Current: Current Medications Discontinued Medications Amlodipine Besylate (Norvasc) 10 mg PO BEDTIME [facility] Last Admin: 08/02/17 21:26 Dose: 10 mg Bisacodyl (Dulcolax) 5 mg PO DAILY PRN PRN Reason: Constipation Bupivacaine HCl (Marcaine 0.25%) Confirm Administered Dose 30 ml .ROUTE .STK- MED ONE Stop: 08/02/17 10:31 Last Admin: 08/02/17 12:52 Dose: 30 ml Cefazolin Sodium (Ancef) Confirm Administered Dose 2 gm .ROUTE .STK-MED ONE Stop: 08/02/17 10:24 Last Admin: 08/02/17 12:46 Dose: 2 gm Cefazolin Sodium (Ancef) Confirm Administered Dose 2 gm .ROUTE .STK-MED ONE Stop: 08/02/17 10:31 Cholecalciferol (Vitamin D3) 2,000 units PO DAILY [facility] Last Admin: 08/03/17 08:32 Dose: 2,000 units Morphine Sulfate 8 mg/Epinephrine HCl 0.3 mg/Cefuroxime Sodium 750 mg/Ketorolac Tromethamine 30 mg/Sodium Chloride 27.9 ml 0 mg .XX ONETIME ONE Stop: 08/02/17 11:46 Last Admin: 08/02/17 12:51 Dose: 788.3 mg Diphenhydramine HCl (Benadryl) 25 mg IVPUSH Q6H PRN PRN Reason: Pruritis Stop: 08/02/17 15:00 Docusate Sodium (Colace) 100 mg PO BID [facility] Last Admin: 08/03/17 08:32 Dose: 100 mg Famotidine (Pepcid) 20 mg PO BID [facility] Last Admin: 08/03/17 08:32 Dose: 20 mg Famotidine (Pepcid) 20 mg PO DAILY [facility] Last Admin: 08/03/17 08:39 Dose: Not Given Fentanyl (Sublimaze) Confirm Administered Dose 100 mcg .ROUTE .STK-MED ONE Stop: 08/02/17 10:25 Furosemide (Lasix) 20 mg PO DAILY [facility] Last Admin: 08/03/17 08:31 Dose: 20 mg Haloperidol Lactate (Haldol) 1 mg IVPUSH ONETIME ONE Stop: 08/02/17 14:01 Last Admin: 08/02/17 16:52 Dose: Not Given Heparin Sodium (Porcine) (Heparin Lock Flush 100 Units/Ml) 500 units FLUSH ASDIRECTED PRN PRN Reason: deaccess port Last Admin: 08/03/17 14:48 Dose: 500 units Lactated Ringer's (Ringers, Lactated) 1,000 mls @ 125 mls/hr IV ASDIRECTED [facility] Last Admin: 08/02/17 10:15 Dose: 125 mls/hr Lidocaine HCl (Xylocaine-Mpf 1%) Confirm Administered Dose 0 mls @ as directed .ROUTE .STK-MED ONE Stop: 08/02/17 10:24 Lactated Ringer's (Ringers, Lactated) Confirm Administered Dose 1,000 mls @ as directed .ROUTE .STK-MED ONE Stop: 08/02/17 10:24 Vancomycin HCl 1 gm/ Sodium (Chloride) 250 mls @ 250 mls/hr IV ONETIME ONE Stop: 08/02/17 11:59 Last Admin: 08/02/17 11:05 Dose: 250 mls/hr Cefazolin Sodium/Dextrose 2 gm (/ Premix) 50 mls @ 100 mls/hr IV Q8H [facility] Stop: 08/03/17 13:29 Last Admin: 08/03/17 13:37 Dose: 100 mls/hr Vancomycin HCl 1 gm/ Sodium (Chloride) 250 mls @ 250 mls/hr IV ONETIME ONE Stop: 08/03/17 13:59 Iodine (Iodine 2% Mild Tincture) Confirm Administered Dose 30 ml .ROUTE .STK- MED ONE Stop: 08/02/17 10:31 Last Admin: 08/02/17 12:44 Dose: 18 ml Ketamine HCl (Ketalar) Confirm Administered Dose 500 mg .ROUTE .STK-MED ONE Stop: 08/02/17 10:25 Latanoprost (Xalatan 0.005% Ophth Soln) 0 ml EYEBOTH BEDTIME [facility] Last Admin: 08/02/17 21:29 Dose: 1 drop Levothyroxine Sodium (Levothyroxine) 75 mcg PO DAILY [facility] Last Admin: 08/03/17 08:32 Dose: 75 mcg Lidocaine/Prilocaine (Emla Crm) 0 gm TOP Q6H PRN PRN Reason: Prior to accessing port Lidocaine/Sodium Bicarbonate (Buffered Lidocaine 1% In Ns 8.4%) 0.25 ml IV ONETIME PRN PRN Reason: Prior to IV Start Stop: 08/02/17 18:00 Lisinopril (Prinivil) 40 mg PO DAILY [facility] Last Admin: 08/03/17 08:32 Dose: 40 mg Magnesium Hydroxide (Milk Of Magnesia) 30 ml PO BID PRN PRN Reason: Constipation Metoprolol Succinate (Toprol Xl) 50 mg PO BID [facility] Last Admin: 08/03/17 08:33 Dose: Not Given Midazolam HCl (Versed 1 Mg/Ml) Confirm Administered Dose 2 mg .ROUTE .STK-MED ONE Stop: 08/02/17 10:25 Morphine Sulfate (Duramorph Pf) Confirm Administered Dose 10 mg .ROUTE .STK-MED ONE Stop: 08/02/17 10:25 Naloxone HCl (Narcan) 0.1 mg IVPUSH Q5M PRN PRN Reason: Oversedation Ondansetron HCl (Zofran) Confirm Administered Dose 4 mg .ROUTE .STK-MED ONE Stop: 08/02/17 10:24 Ondansetron HCl (Zofran) 4 mg IVPUSH Q6H PRN PRN Reason: Nausea/Vomiting Last Admin: 08/03/17 10:15 Dose: 4 mg Ondansetron HCl (Zofran) 4 mg IVPUSH ONETIME PRN PRN Reason: Nausea/Vomiting Stop: 08/02/17 15:00 Phenylephrine HCl (Robert-Synephrine) Confirm Administered Dose 10 mg .ROUTE .STK- MED ONE Stop: 08/02/17 10:24 Propofol (Diprivan 20 Ml) Confirm Administered Dose 400 mg .ROUTE .STK-MED ONE Stop: 08/02/17 10:24 Psyllium Husk (Metamucil Sugar Free) 1 packet PO BID [facility] Last Admin: 08/03/17 08:32 Dose: 1 packet Rivaroxaban (Xarelto) 10 mg PO DAILY [facility] Last Admin: 08/03/17 08:33 Dose: 10 mg Scopolamine (Transderm-Scop) 1.5 mg TRDERM Q72H ONE Stop: 08/02/17 11:31 Last Admin: 08/02/17 10:30 Dose: 1.5 mg Senna (Senna) 8.6 mg PO BID PRN PRN Reason: Constipation Sodium Chloride (Saline Flush) 10 ml FLUSH ASDIRECTED PRN PRN Reason: Keep Vein Open Stop: 08/02/17 18:00 Tramadol HCl (Ultram) 50 - 100 mg PO Q4H PRN PRN Reason: Pain Last Admin: 08/03/17 14:57 Dose: 50 mg Tranexamic Acid (Cyklokapron) Confirm Administered Dose 1,000 mg .ROUTE .STK- MED ONE Stop: 08/02/17 10:30 Last Admin: 08/02/17 12:53 Dose: 1,000 mg Vancomycin HCl (Vancomycin) 1 gm .XX ONETIME ONE Stop: 08/02/17 11:01 Last Admin: 08/02/17 12:53 Dose: 1 gm Vancomycin HCl (Pharmacy To Dose - Vancomycin) 0 dose .XX ASDIRECTED PRN PRN Reason: RX TO CALCULATE POSTOP VANCO Stop: 08/03/17 12:01 *Q Meaningful Use (DIS) - VTE *Q VTE Criteria *Q: - Stroke *Q Stroke Criteria *Q: - AMI *Q AMI Criteria *Q:
--- NOTE | 2017-08-09 12:47 | PCM.OPNOTE ---
- General Post-Op/Procedure Note Date of Surgery/Procedure: 08/02/17 Operative Procedure(s): right total hip arthroplasty Pre Op Diagnosis: right hip osteoarthrosis Post-Op Diagnosis: Same Anesthesia Technique: Local, MAC, Spinal Primary Surgeon: Naldo Segura Anesthesia Provider: Suzy Case Navy Diver: Domonique Richards Navy Diver: Liliana Saunders EBL in mLs: 150 Complications: None Condition: Good
--- NOTE | 2017-08-09 13:28 | OR ---
DATE OF OPERATION: 08/02/2017 SURGEON: Naldo Segura MD OPERATION PERFORMED: Right total hip osteoarthrosis. PREOPERATIVE DIAGNOSIS: Right hip osteoarthrosis. POSTOPERATIVE DIAGNOSIS: Right hip osteoarthrosis. ANESTHESIA: Local MAC with spinal. ANESTHESIA PROVIDER: Claudia Carbone. ASSISTANTS: Domonique Richards PA-C, and Liliana Saunders LPN who aided in retraction and closure throughout the procedure ESTIMATED BLOOD LOSS: 150 mL. COMPLICATIONS: None. CONDITION: Stable. DESCRIPTION OF PROCEDURE: The patient was identified in the preop holding area. Proper site was marked and identified by the surgeon. The patient was taken back to the operating theater, where after adequate anesthesia, the patient was placed in a left lateral decubitus position. Axillary roll was placed. All bony prominences were well padded. Pegs were then placed and well padded. The patient's gluteal fold was parallel to the floor. Right hip was then sterilely prepped and draped in the usual sterile fashion. OR time-out was performed. The patient received 2 g IV Ancef. An incision was then made, centered over the greater trochanter, IT band and gluteal fascia were incised along the incisional length. Charnley retractor was then placed. Attention was turned to the short external rotators. Piriformis site tendon was identified and takedown of the piriformis tendon as well. Short external rotators were done to the level of the lesser trochanter. At this time, the hip was dislocated. Neck cut guide was then placed. The neck cut was completed and found to be adequate. Anterior and posterior acetabular retractors were then placed as well as an inferior acetabular retractors. Remaining pulvinar as well as anterior posterior labrum were then removed. At this time, I started with a size 42 reamer and was able to ream up to a 50 for a 50 mm cup. A 50 mm Tritanium acetabular cup was then impacted into place, roughly 40 to 45 degrees of abduction and 20 degrees of anteversion. At this time, the 36 mm flat liner was then impacted into place. Attention was turned to the femur. Box chisel was used out laterally and starter awl was placed down the canal. Starting with the 0 broach, I was able to broach up to a size 4 which was found to be rotationally and vertically stable. At this time, a 36+ 0 was trailed. There was found to have adequate samaritan of leg lengths along with free range of motion with no signs of instability. At this time, the hip was dislocated with the use of a bone hook. Size 4 Accolade II Terril stem was impacted into place along with a 36+ 0 head. This was then relocated. One liter dilute Betadine solution along with 3 L pulse lavage irrigation with Ancef were then irrigated through the hip. Periarticular injection was then completed with the usual joint cocktail. Two #5 Ethibond sutures were used for closure of short external rotators and capsule. Topical tranexamic acid and vancomycin powder were then placed, #2 barbed suture was used for closure of the IT band and gluteal fascia, 2-0 Vicryl was used subcutaneously, and Prineo was used for the skin. The patient tolerated the procedure well sent to PACU in stable condition. MMODAL /[id number]
== END 2017-08-03 14:50 | disposition home or self-care (01) | DRG 470 ==
LOC: JD.MS 09:18
PROVIDERS: ADMIT Orthopaedic Surgery; ATTEND Orthopaedic Surgery
PROC: 0SR9029 Replacement of Right Hip Joint with Metal on Polyethylene Synthetic Substitute, Cemented, Open Approach (ICD-10-PCS; principal; 2017-08-02)
DX: M16.11 Unilateral primary osteoarthritis, right hip (principal); I13.0 Hypertensive heart and chronic kidney disease with heart failure and stage 1 through stage 4 chronic kidney disease, or unspecified chronic kidney disease; E66.3 Overweight; Z68.28 Body mass index [BMI] 28.0-28.9, adult; E03.9 Hypothyroidism, unspecified; E55.9 Vitamin D deficiency, unspecified; Z95.0 Presence of cardiac pacemaker; M79.7 Fibromyalgia; E78.00 Pure hypercholesterolemia, unspecified; Z79.82 Long term (current) use of aspirin; Z79.899 Other long term (current) drug therapy; Z88.6 Allergy status to analgesic agent; Z88.5 Allergy status to narcotic agent; H40.9 Unspecified glaucoma; Z96.642 Presence of left artificial hip joint; E11.22 Type 2 diabetes mellitus with diabetic chronic kidney disease; N18.9 Chronic kidney disease, unspecified; Z86.14 Personal history of Methicillin resistant Staphylococcus aureus infection; Z85.118 Personal history of other malignant neoplasm of bronchus and lung; I50.9 Heart failure, unspecified
CPT/HCPCS: 01214; 36415; 73501-26-RT; 73501-RT; 80053; 82962; 85027; 86850; 86900; 86901; 94762; 97110-GP; 97116-GP; 97162-GP; 97166-GO; 97535-GO; 99231; 99232; A9270-GY; C1776; J0171; J0690; J0697; J1642; J1885; J2250; J2270; J2370; J2405; J2704; J3010; J3370; J3490; J7050; J7120

== ENCOUNTER 2017-08-04 22:44 | Emergency (ER) | payer MEDICARE, BC ==
--- NOTE | 2017-08-04 23:15 | EDM.PDOC ---
ED HPI GENERAL MEDICAL PROBLEM - General Chief Complaint: Lower Extremity Injury/Pain Stated Complaint: DIANELYS AMB Time Seen by Provider: 08/04/17 22:51 Source of Information: Reports: Patient, Family (Daughter), Old Records, RN Notes Reviewed History Limitations: Reports: No Limitations - History of Present Illness INITIAL COMMENTS - FREE TEXT/NARRATIVE: The patient underwent a right total hip arthroplasty 2 days ago, 08/02/2017, per Dr. Segura, at this facility. She was discharged home yesterday, 08/03/2017, with a prescription for tramadol, as she is allergic to most opioids. She states that she fell while walking to the bathroom with her walker this evening. She believes that she just tripped. She landed on a carpeted floor. She is complaining of right hip pain. She denies any other injuries. The patient's last oral solid food was around 16:30 this afternoon; her last oral fluid intake was around 20:00 tonight. The patient's PCP is Dr. Perkins. Right Hip Pain Score (Numeric/FACES): 7 - Related Data Allergies Allergy/AdvReac Type Severity Reaction Status Date / Time codeine Allergy Swollen Verified 08/04/17 23:00 Tongue duloxetine [From Cymbalta] Allergy Difficulty Verified 08/04/17 23:00 Breathing fentanyl Allergy Chest Pain Verified 08/04/17 23:00 hydrocodone Allergy Swollen Verified 08/04/17 23:00 Tongue hydromorphone [From Dilaudid] Allergy Fever Verified 08/04/17 23:00 Home Meds: Home Meds Levothyroxine 75 mcg PO DAILY 12/10/15 [History] Lisinopril 40 mg PO DAILY 12/10/15 [History] Metoprolol Succinate 50 mg PO BID 12/10/15 [History] Furosemide [Lasix] 20 mg PO DAILY #30 tablet 03/17/16 [Rx] Cholecalciferol (Vitamin D3) [Vitamin D3] 2,000 units PO DAILY 05/15/16 [History ] Latanoprost 1 drop OP BEDTIME 10/20/16 [History] [place]-3/DHA/Epa/Fish Oil [[place]-3 Fish Oil 1,000 MG Sfgl] 2,000 mg PO BEDTIME [History] Lidocaine/Prilocaine [EMLA Crm] 1 gm TOP Q6H PRN #1 tube 11/25/16 [Rx] Prochlorperazine [Compazine] 10 mg PO QID PRN 05/03/17 [History] amLODIPine [Norvasc] 5 mg PO BEDTIME 05/03/17 [History] Ondansetron HCl [Zofran] 4 mg PO Q6H PRN 07/30/17 [History] Pantoprazole Sodium [Protonix] 40 mg PO DAILY 07/30/17 [History] Psyllium Husk [Metamucil] 1 tsp PO BID 07/30/17 [History] Docusate Sodium [Colace] 100 mg PO BID PRN #30 cap 08/03/17 [Rx] Rivaroxaban [Xarelto] 10 mg PO DAILY #35 tablet 08/03/17 [Rx] traMADol [Ultram] 50 mg PO Q4H PRN #60 tablet 08/03/17 [Rx] Past Medical History HEENT History: Reports: Glaucoma Cardiovascular History: Reports: High Cholesterol, Hypertension Genitourinary History: Reports: Chronic Renal Insuffiency 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: Musculoskeletal History: Reports: Fibromyalgia, Osteoarthritis Endocrine/Metabolic History: Reports: Diabetes, Type II, Hypothyroidism, Vitamin D Deficiency Hematologic History: Reports: Blood Transfusion(s) Oncologic (Cancer) History: 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) - Infectious Disease History Infectious Disease History: Reports: Chicken Pox, MRSA - Past Surgical History HEENT Surgical History: Reports: Cataract Surgery (bilateral) Cardiovascular Surgical History: Reports: Pacer (dual chamber) Respiratory Surgical History: Reports: Thoracotomy (right, with lobectomy) GI Surgical History: Reports: Appendectomy, Colonoscopy Female Surgical History: Reports: Hysterectomy, Salpingo-Oophorectomy Endocrine Surgical History: Reports: Thyroidectomy Musculoskeletal Surgical History: Reports: Hip Replacement (bilateral) Other Musculoskeletal Surgeries/Procedures:: Left total hip replacement Social & Family History - Family History Family Medical History: Noncontributory - Tobacco Use Smoking Status *Q: Never Smoker Second Hand Smoke Exposure: No - Caffeine Use Caffeine Use: Reports: None - Alcohol Use Alcohol Use History: No - Recreational Drug Use Recreational Drug Use: No - Living Situation & Occupation Living situation: Reports: , with Spouse Occupation: Retired Review of Systems - Review of Systems Review Of Systems: See Below Constitutional: Reports: No Symptoms Eyes: Reports: No Symptoms Ears: Reports: No Symptoms Nose: Reports: No Symptoms Mouth/Throat: Reports: No Symptoms Respiratory: Reports: No Symptoms Cardiovascular: Reports: No Symptoms GI/Abdominal: Reports: Diarrhea (07/29/17 through 08/01/17), Nausea (07/29/17 through 08/01/17), Vomiting (07/29/17 through 08/01/17) Genitourinary: Reports: No Symptoms Musculoskeletal: Reports: No Symptoms Skin: Reports: No Symptoms Neurological: Reports: No Symptoms Psychiatric: Reports: No Symptoms ED EXAM, GENERAL - Physical Exam Exam: See Below Exam Limited By: No Limitations General Appearance: Alert, WD/WN, Mild Distress (Appears uncomfortable) Eye Exam: Bilateral Eye: Normal Inspection Ears: Normal External Exam, Hearing Grossly Normal Nose: Normal Inspection, No Blood Throat/Mouth: Normal Inspection, Normal Lips, Normal Voice, No Airway Compromise Head: Atraumatic, Normocephalic Neck: Normal Inspection, Full Range of Motion Respiratory/Chest: No Respiratory Distress, Lungs Clear, Normal Breath Sounds, No Accessory Muscle Use Cardiovascular: Normal Peripheral Pulses, Regular Rate, Rhythm, No Gallop, No JVD, No Murmur, No Rub Peripheral Pulses: 4+: Radial (L), Radial (R) GI/Abdominal: Normal Bowel Sounds, Soft, Non-Tender, No Organomegaly, No Distention, No Abnormal Bruit, No Mass (Female) Exam: Deferred Rectal (Female) Exam: Deferred Back Exam: Other (Due to the injury, patient remained in a supine position) Extremities: Normal Capillary Refill, Other (Postoperative bandage to the lateral aspect of the right hip/thigh. Fullness and tenderness to the right hip. Approximately 3 to 4 cm shortening of the right lower extremity. Neurovascular status of the right lower extremity is intact.) Neurological: Alert, Oriented, Normal Cognition, No Motor/Sensory Deficits Psychiatric: Normal Affect Skin Exam: Warm, Dry, Intact, Normal Color, No Rash Course - Vital Signs Last Recorded V/S: Last Vital Signs Temp 36.2 C 08/05/17 00:15 Pulse 68 08/05/17 01:57 Resp 20 08/05/17 01:57 BP 147/62 H 08/05/17 01:57 Pulse Ox 96 08/05/17 01:57 - Orders/Labs/Meds Orders: Active Orders 24 hr Category Date Time Status Nothing per Oral Now Diet [DIET] Diet 08/04/17 Breakfast Active Hip Min 1V Rt [CR] Routine Exams 08/05/17 01:00 Taken Hip Min 1V Rt [CR] Stat Exams 08/05/17 00:25 Taken Hip Min 1V w Pelvis Rt [CR] Stat Exams 08/04/17 23:06 Taken Hip Min 2V or 3V Rt [CR] Routine Exams 08/05/17 Taken Hip Min 2V or 3V Rt [CR] Routine Exams 08/05/17 Taken Pelvis 1V or 2V [CR] Routine Exams 08/05/17 Taken Pelvis 1V or 2V [CR] Routine Exams 08/05/17 Taken Sodium Chloride 0.9% [Normal Saline] 1,000 ml Med 08/05/17 01:45 Active IV ASDIRECTED Medication Orders Sodium Chloride (Normal Saline) 1,000 mls @ 75 mls/hr IV ASDIRECTED LUCIO Last Admin: 08/05/17 01:39 Dose: 75 mls/hr Meds: Medications Generic Name Dose Route Start Last Admin Trade Name Freq PRN Reason Stop Dose Admin Sodium Chloride 1,000 mls @ 75 mls/hr 08/05/17 01:45 08/05/17 01:39 Normal Saline IV 75 mls/hr ASDIRECTED LUCIO Administration Discontinued Medications Generic Name Dose Route Start Last Admin Trade Name Freq PRN Reason Stop Dose Admin Lidocaine HCl Confirm 08/05/17 00:28 Xylocaine-Mpf 1% Administered 08/05/17 00:29 Dose 4 mls @ as directed .ROUTE .STK-MED ONE Propofol Confirm 08/05/17 00:28 Diprivan 20 Ml Administered 08/05/17 00:29 Dose 200 mg .ROUTE .STK-MED ONE Propofol Confirm 08/05/17 01:02 Diprivan 20 Ml Administered 08/05/17 01:03 Dose 200 mg .ROUTE .STK-MED ONE Tramadol HCl 50 mg 08/05/17 05:51 08/05/17 05:57 Ultram PO 08/05/17 05:52 50 mg ONETIME ONE Administration - Re-Assessments/Exams Free Text/Narrative Re-Assessment/Exam: 08/04/17 23:20 2-view radiograph of the right hip and pelvis appear to demonstrate a posterior dislocation of the right hip. No fracture identified. Formal read per the radiologist pending. 08/04/17 23:[address] Segura at 23:31. Reduction of this hip would be no different than any other hip. The patient will continue to require use of her abductor pillow, and can follow-up as she otherwise would. I have asked anesthesia to come in. 08/05/17 00:33 Under anesthesia, 2 attempts were made to reduce the right hip. Each time there was an audible "clunk", however, post-attempt radiographs find the hip to still be dislocated. The above was discussed with Dr. Segura at 00:33. He will come to the ED to attempt reduction. 08/05/17 01:30 Dr. Segura came to the ED to reduce the patient's hip. It took many attempts, but the hip has now been reduced. The current plan is to keep the patient here in the ED for several hours to allow her to recover from anesthesia, then the daughter will return to take the patient home. 08/05/17 05:51 The patient has been resting comfortably. We got the patient up to confirm that she can ambulate with a walker, which she was able to do, however, she is not complaining of some increased pain. She is overdue for her scheduled tramadol, therefore I have ordered a dose of tramadol here. 08/05/17 06:42 The patient's daughter has arrived to take the patient home. Departure - Departure Time of Disposition: 06:42 Disposition: Home, Self-Care 01 Condition: Good Clinical Impression: Dislocation of internal right hip prosthesis - Discharge Information Referrals: PCP,None [Ordering Only Provider] - Naldo Segura MD [Physician] - Forms: ED Department Discharge Additional Instructions: You were seen in the emergency room after falling and dislocating your right hip replacement. Under anesthesia, your hip was put back in place by Dr. Segura. Continue to take tramadol as needed for pain, as prescribed. Follow-up with Dr. Segura at your next scheduled appointment. If any other problems, please do not hesitate to return to the ER. - My Orders Last 24 Hours: My Active Orders 08/04/17 23:06 Hip Min 1V w Pelvis Rt [CR] Stat 08/04/17 Breakfast Nothing per Oral Now Diet [DIET] 08/05/17 00:25 Hip Min 1V Rt [CR] Stat 08/05/17 01:00 Hip Min 1V Rt [CR] Routine 08/05/17 01:45 Sodium Chloride 0.9% [Normal Saline] 1,000 ml IV ASDIRECTED - Assessment/Plan Last 24 Hours: My Active Orders 08/04/17 23:06 Hip Min 1V w Pelvis Rt [CR] Stat 08/04/17 Breakfast Nothing per Oral Now Diet [DIET] 08/05/17 00:25 Hip Min 1V Rt [CR] Stat 08/05/17 01:00 Hip Min 1V Rt [CR] Routine 08/05/17 01:45 Sodium Chloride 0.9% [Normal Saline] 1,000 ml IV ASDIRECTED
--- NOTE | 2017-08-05 00:02 | PCM.PREANE ---
Preanesthetic Assessment - Anesthesia/Transfusion/Family Hx Anesthesia History: Prior Anesthesia Reaction Type of Anesthesia Reaction: Excessive Nausea/Vomiting Family History of Anesthesia Reaction: No Transfusion History: Prior Transfusion Without Reaction Intubation History: Unknown - Review of Systems General: No Symptoms Pulmonary: No Symptoms (History of right/left lung Ca and lymph nodes in throat. Right lobectomy noted.) Cardiovascular: No Symptoms (History of HTN, CHF, and pacemaker), Palpitations, Dyspnea on Exertion, Edema Gastrointestinal: No Symptoms (GERD) Neurological: No Symptoms (History of motion sickness), Tingling (right hand thumb and first 2 finger) Other: Reports: None (Renal insufficiency noted), Easy Bruising, Diabetes, Thyroid Problems (Hypothyroid) - Physical Assessment NPO Status Date: 08/04/17 NPO Status Time: 20:00 (fluids/1630 solids) Pulse: 63 O2 Sat by Pulse Oximetry: 93 Respiratory Rate: 18 Blood Pressure: 169/74 Temperature: 36.2 C Vital Signs: Last Vital Signs Temp 36.2 C 08/04/17 22:50 Pulse 63 08/04/17 22:50 Resp 18 08/04/17 22:50 BP 169/74 H 08/04/17 22:50 Pulse Ox 93 L 08/04/17 22:50 Height: 1.68 m Weight: 79.379 kg ASA Class: 3E Mental Status: Alert & Oriented x3 Airway Class: Mallampati = 2 Dentition: Reports: Normal Dentition, Caries Thyro-Mental Finger Breadths: 3 Mouth Opening Finger Breadths: 3 ROM/Head Extension: Full Lungs: Clear to Auscultation, Normal Respiratory Effort Cardiovascular: Regular Rate, Regular Rhythm, No Murmurs - Imaging/EKG Impressions: EKG: SR with PAC's rate=76 Echocardiogram: EF: 65-70% - Allergies Allergies/Adverse Reactions: Allergies Allergy/AdvReac Type Severity Reaction Status Date / Time codeine Allergy Swollen Verified 08/04/17 23:00 Tongue duloxetine [From Cymbalta] Allergy Difficulty Verified 08/04/17 23:00 Breathing fentanyl Allergy Chest Pain Verified 08/04/17 23:00 hydrocodone Allergy Swollen Verified 08/04/17 23:00 Tongue hydromorphone [From Dilaudid] Allergy Fever Verified 08/04/17 23:00 - Anesthesia Plan Pre-Op Medication Ordered: Beta Victoriano Beta Victoriano: Metoprolol Med Last Dose Date: 08/04/17 Med Last Dose Time: 06:30 - Acknowledgements Anesthesia Type Planned: MAC Pt an Appropriate Candidate for the Planned Anesthesia: Yes Alternatives and Risks of Anesthesia Discussed w Pt/Guardian: Yes Pt/Guardian Understands and Agrees with Anesthesia Plan: Yes PreAnesthesia Questionnaire HEENT History: Reports: Glaucoma Other HEENT History: history of oral thrush, wears glasses Cardiovascular History: Reports: High Cholesterol, Hypertension Other Cardiovascular History: chest pain/pressure, edema Respiratory History: Reports: Other (See Below) Other Respiratory History: Lung Cancer, Pulmonary nodule, Dyspnea on exertion Genitourinary History: Reports: Chronic Renal Insuffiency Other Genitourinary History: Contrast dye induced nephropathy, Microalbuminuria CARPET CUTTER History: Reports: Musculoskeletal History: Reports: Fibromyalgia, Osteoarthritis Endocrine/Metabolic History: Reports: Diabetes, Type II, Hypothyroidism, Vitamin D Deficiency Other Endocrine/Metabolic History: DM II (diet controlled), goiter, thyroid nodule Hematologic History: Reports: Blood Transfusion(s) Oncologic (Cancer) History: 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) - Infectious Disease History Infectious Disease History: Reports: Chicken Pox, MRSA - Past Surgical History HEENT Surgical History: Reports: Cataract Surgery (bilateral) Cardiovascular Surgical History: Reports: Pacer (dual chamber) Respiratory Surgical History: Reports: Thoracotomy (right, with lobectomy) GI Surgical History: Reports: Appendectomy, Colonoscopy Female Surgical History: Reports: Hysterectomy, Salpingo-Oophorectomy Endocrine Surgical History: Reports: Thyroidectomy Musculoskeletal Surgical History: Reports: Hip Replacement (bilateral) Other Musculoskeletal Surgeries/Procedures:: Left total hip replacement - SUBSTANCE USE Smoking Status *Q: Never Smoker Tobacco Use Within Last Twelve Months: No Second Hand Smoke Exposure: No Recreational Drug Use History: No - HOME MEDS Home Medications: Home Meds Levothyroxine 75 mcg PO DAILY 12/10/15 [History] Lisinopril 40 mg PO DAILY 12/10/15 [History] Metoprolol Succinate 50 mg PO BID 12/10/15 [History] Furosemide [Lasix] 20 mg PO DAILY #30 tablet 03/17/16 [Rx] Cholecalciferol (Vitamin D3) [Vitamin D3] 2,000 units PO DAILY 05/15/16 [History ] Latanoprost 1 drop OP BEDTIME 10/20/16 [History] Mcdonald-3/DHA/Epa/Fish Oil [Mcdonald-3 Fish Oil 1,000 MG Sfgl] 2,000 mg PO BEDTIME [History] Lidocaine/Prilocaine [EMLA Crm] 1 gm TOP Q6H PRN #1 tube 11/25/16 [Rx] Prochlorperazine [Compazine] 10 mg PO QID PRN 05/03/17 [History] amLODIPine [Norvasc] 5 mg PO BEDTIME 05/03/17 [History] Ondansetron HCl [Zofran] 4 mg PO Q6H PRN 07/30/17 [History] Pantoprazole Sodium [Protonix] 40 mg PO DAILY 07/30/17 [History] Psyllium Husk [Metamucil] 1 tsp PO BID 07/30/17 [History] Docusate Sodium [Colace] 100 mg PO BID PRN #30 cap 08/03/17 [Rx] Rivaroxaban [Xarelto] 10 mg PO DAILY #35 tablet 08/03/17 [Rx] traMADol [Ultram] 50 mg PO Q4H PRN #60 tablet 08/03/17 [Rx]
[2017-08-05] MEDS ORDERED: Lidocaine 1% 4 ML ONE (00:28)
[2017-08-05] MEDS ORDERED: Propofol 200 MG/20 ML SDV ONE ×2 (00:28→01:02)
[2017-08-05] MEDS ORDERED: Sodium Chloride 0.9% 1,000 ML IV SCH (01:45)
[2017-08-05 01:58] VITALS: BP 147/62
[2017-08-05] MEDS ORDERED: traMADol 50 MG Tab PO ONE (05:51)
--- NOTE | 2017-08-05 06:56 | CR ---
Pelvis and right hip: AP view of the pelvis was obtained as well as lateral view of the right hip. Comparison: Previous study performed earlier on the same day (12:24 AM). Bilateral hip prosthesis again noted. Dislocated right hip prosthesis is seen. Bony structures are grossly intact. Degenerative change is partially seen within the lumbar spine. Impression: 1. Continuing dislocated right hip prosthesis. Diagnostic code #3
--- NOTE | 2017-08-05 06:56 | CR ---
Pelvis and right hip: AP view of the pelvis was obtained as well as lateral views of the right hip. Comparison: Previous study performed earlier on the same day (01:01 AM) Bilateral hip prosthesis are seen. Previous dislocation has been reduced. No fracture or other bony abnormality is seen. Impression: 1. Previous right hip dislocation has been reduced. Diagnostic code #1
--- NOTE | 2017-08-05 06:56 | CR ---
Pelvis: AP view of the pelvis was obtained. Comparison: Previous study performed on the same day (01:13 AM) Right hip prosthesis shows redislocation. Left hip prosthesis is stable. Osteopenia is noted. No acute bony abnormality is seen. Impression: 1. Redislocation of right hip prosthesis. Diagnostic code #3
--- NOTE | 2017-08-05 07:09 | CR ---
Right hip: Single AP view of the right hip was obtained. Comparison: Previous study performed earlier on the same day (01:57 AM). Continuing dislocated right hip prosthesis is seen. Other portions of the study also remain stable. Impression: 1. Continuing dislocation of right hip prosthesis. Diagnostic code #3
--- NOTE | 2017-08-05 07:09 | CR ---
Right hip: Single AP view of the right hip was obtained. Comparison: Previous study performed earlier on the same day (11:12 PM). Dislocated right hip prosthesis remains. Other incidental findings as previously described. Impression: 1. Continuing dislocation of right hip prosthesis. Diagnostic code #3
--- NOTE | 2017-08-05 07:09 | CR ---
Pelvis: AP view of the pelvis was obtained. Comparison: Previous study performed on the same day (01:57 AM) Dislocated right hip prosthesis is again noted. Left hip prosthesis is normal in alignment. Bony structures are osteopenic. No acute bony abnormality is identified. Impression: 1. Continuing dislocation of right hip prosthesis. Diagnostic code #3
--- NOTE | 2017-08-05 07:10 | CR ---
Pelvis and right hip: AP view of the pelvis was obtained as well as coned-down AP view of the right hip. Bilateral hip prosthesis are noted. Right hip prosthesis shows dislocation. Bony structures are osteopenic but appear intact. Slight degenerative change is partially visualized within the lumbar spine. Impression: 1. Dislocated right hip prosthesis. 2. Other incidental findings. Diagnostic code #3
--- NOTE | 2017-08-05 15:07 | PCM.SN ---
- Free Text/Narrative Note: The pt was evaluated in the ED by Dr. Segura on 08-05-2017 and was found to have a dislocated right hip s/p right SARI completed on 08-02-2017. Dr. Segura's evaluation from 08-05-2017 will serve as the [id number] evaluation of the pt. Home Health Nursing, physical therapy and occupational therapy is ordered for the pt. The pt would benefit from retirement to assist with pain management, monitoring of vital signs, medication management, and evaluation of the pt's surgical wound. The pt would benefit from physical therapy and occupational therapy to improve balance and safety with mobility and for continued instruction on total hip arthroplasty precautions. P.T. and O.T. will be able to assist the pt with gaining independence and safety with mobility. At this time, the pt is home-bound and is using a FWW for mobility. The pt will follow-up with her surgeon and with her primary care provider, Dr. Andrews. Dr. Segura/Domonique Richards PA-C
== END 2017-08-05 06:50 | disposition home or self-care (01) ==
LOC: JD.ED 22:44
DX: T84.020A Dislocation of internal right hip prosthesis, initial encounter (principal); E78.00 Pure hypercholesterolemia, unspecified; I12.9 Hypertensive chronic kidney disease with stage 1 through stage 4 chronic kidney disease, or unspecified chronic kidney disease; E11.22 Type 2 diabetes mellitus with diabetic chronic kidney disease; N18.9 Chronic kidney disease, unspecified; E03.9 Hypothyroidism, unspecified; Z96.643 Presence of artificial hip joint, bilateral; Z79.899 Other long term (current) drug therapy; Z88.5 Allergy status to narcotic agent; Z88.8 Allergy status to other drugs, medicaments and biological substances; W01.0XXA Fall on same level from slipping, tripping and stumbling without subsequent striking against object, initial encounter; Y92.89 Other specified places as the place of occurrence of the external cause
CPT/HCPCS: 27252; 72170; 73501; 73502; 96360; 96361; 99285; A9270; J7040; P9612; 01200; 27266; 99283-25; J2704

== ENCOUNTER 2018-03-17 05:46 | Emergency (ER) | payer MEDICARE, BC ==
[2018-03-17] MEDS ORDERED: Metoprolol Tartrate 25 MG Tab PO ONE (06:06)
[2018-03-17] MEDS ORDERED: Aspirin 81 MG Tab.Chew PO ONE (06:06)
[2018-03-17] MEDS: Sodium Chloride 0.9% 10 ML Syringe FLUSH PRN ×2 (06:20→07:18)
--- NOTE | 2018-03-17 06:40 | EDM.PDOC ---
<Haroldo Yeboah - Last Filed: 03/17/18 07:12> ED HPI GENERAL MEDICAL PROBLEM - General Chief Complaint: Chest Pain Stated Complaint: [facility] Time Seen by Provider: 03/17/18 05:59 Source of Information: Reports: Patient, EMS History Limitations: Reports: No Limitations - History of Present Illness INITIAL COMMENTS - FREE TEXT/NARRATIVE: The patient presents by [facility] for left sided chest pain. She got up feeling good. She went to the bathroom to have a bowel movement. She was straining and she developed left sided chest pain that radiated to her left arm. She was short of breath when it hit. The pain comes and goes. She has no fever, chills, cough, abdominal pain, nausea or vomiting. She has a pacemaker but no history of heart attack. She does have a history of lung cancer and had part of her lung removed. The cancer came back this past year and she was on chemo. She gets another CT of her chest tomorrow. She has some edema to her legs but she does wear compression stockings. She took her thyroid med but none of her other medications. Her blood pressure is high this morning. Her daughter came later and said the patient has been in her garden weeding lately and pulling hoses. Onset: Sudden Duration: Minutes: Location: Reports: Chest Quality: Reports: Sharp Severity: Moderate Improves with: Reports: None Worsens with: Reports: None Associated Symptoms: Reports: Chest Pain, Shortness of Breath. Denies: Cough, Fever/Chills, Nausea/Vomiting Treatments TEARER PRESS CLIPPING: Reports: IV/IO Left Chest Pain Score (Numeric/FACES): 5 - Related Data Allergies Allergy/AdvReac Type Severity Reaction Status Date / Time codeine Allergy Swollen Verified 03/17/18 05:52 Tongue duloxetine [From Cymbalta] Allergy Difficulty Verified 03/17/18 05:52 Breathing fentanyl Allergy Chest Pain Verified 03/17/18 05:52 hydrocodone Allergy Swollen Verified 03/17/18 05:52 Tongue hydromorphone [From Dilaudid] Allergy Fever Verified 03/17/18 05:52 Home Meds: Home Meds Levothyroxine 75 mcg PO DAILY 12/10/15 [History] Lisinopril 40 mg PO DAILY 12/10/15 [History] Furosemide [Lasix] 20 mg PO DAILY #30 tablet 03/17/16 [Rx] Cholecalciferol (Vitamin D3) [Vitamin D3] 2,000 units PO DAILY 05/15/16 [History ] Latanoprost 1 drop OP BEDTIME 10/20/16 [History] [place]-3/DHA/Epa/Fish Oil [[place]-3 Fish Oil 1,000 MG Sfgl] 1,000 mg PO BEDTIME [History] Lidocaine/Prilocaine [EMLA Crm] 1 gm TOP Q6H PRN #1 tube 11/25/16 [Rx] Prochlorperazine [Compazine] 10 mg PO QID PRN 05/03/17 [History] Ondansetron HCl [Zofran] 4 mg PO Q6H PRN 07/30/17 [History] Pantoprazole Sodium [Protonix] 40 mg PO DAILY 07/30/17 [History] Psyllium Husk [Metamucil] 1 tsp PO BID 07/30/17 [History] Aspirin 81 mg PO DAILY 03/17/18 [History] Metoprolol Succinate [Toprol XL] 150 mg PO DAILY 03/17/18 [History] Sulfamethoxazole/Trimethoprim [Bactrim Ds Tablet] 1 each PO BID #14 tablet 03/17 [Rx] traMADol [Ultram] 50 mg PO Q8H PRN 03/17/18 [History] Past Medical History HEENT History: Reports: Glaucoma, Impaired Vision Other HEENT History: Wears glasses Cardiovascular History: Reports: High Cholesterol, Hypertension Other Cardiovascular History: chest pain/pressure, edema Respiratory History: Reports: SOB Other Respiratory History: Lung Cancer, Pulmonary nodule, Dyspnea on exertion Genitourinary History: Reports: Chronic Renal Insuffiency Other Genitourinary History: Contrast dye induced nephropathy, Microalbuminuria [employer] History: Reports: Musculoskeletal History: Reports: Fibromyalgia, Osteoarthritis Endocrine/Metabolic History: Reports: Diabetes, Type II, Hypothyroidism, Vitamin D Deficiency Other Endocrine/Metabolic History: DM II (diet controlled), goiter, thyroid nodule Hematologic History: Reports: Blood Transfusion(s) Oncologic (Cancer) History: Reports: Lung - Infectious Disease History Infectious Disease History: Reports: Chicken Pox, MRSA - Past Surgical History HEENT Surgical History: Reports: Cataract Surgery Cardiovascular Surgical History: Reports: Pacer Respiratory Surgical History: Reports: Thoracotomy GI Surgical History: Reports: Appendectomy Female Surgical History: Reports: Hysterectomy, Salpingo-Oophorectomy Endocrine Surgical History: Reports: Thyroidectomy Musculoskeletal Surgical History: Reports: Hip Replacement Other Musculoskeletal Surgeries/Procedures:: Left total hip replacement Social & Family History - Family History Family Medical History: Noncontributory - Tobacco Use Smoking Status *Q: Never Smoker - Caffeine Use Caffeine Use: Reports: Coffee - Recreational Drug Use Recreational Drug Use: No - Living Situation & Occupation Living situation: Reports: , with Spouse Occupation: Retired ED ROS GENERAL - Review of Systems Review Of Systems: See Below Constitutional: Reports: No Symptoms HEENT: Reports: No Symptoms Respiratory: Reports: Shortness of Breath Cardiovascular: Reports: Chest Pain Endocrine: Reports: No Symptoms GI/Abdominal: Reports: No Symptoms : Reports: No Symptoms Musculoskeletal: Reports: No Symptoms Skin: Reports: No Symptoms ED EXAM, GENERAL - Physical Exam Exam: See Below Exam Limited By: No Limitations General Appearance: Alert, No Apparent Distress Ears: Normal External Exam Nose: Normal Inspection Head: Atraumatic, Normocephalic Neck: Normal Inspection Respiratory/Chest: No Respiratory Distress, Lungs Clear, Normal Breath Sounds Cardiovascular: Regular Rate, Rhythm, No Edema, No Murmur, Other (Pain upon palpaton to the left chest) GI/Abdominal: Soft, Non-Tender, No Organomegaly, No Mass Extremities: Other (Mild edema to both legs) Neurological: Alert, Oriented, No Motor/Sensory Deficits EKG INTERPRETATION EKG Date: 03/17/18 Time: 05:51 Rhythm: Other (atrial paced rhythm) Rate (Beats/Min): 70 [place]: Normal P-Wave: Present QRS: Normal ST-T: Normal QT: Normal EKG Interpretation Comments: Q waves in the inferior leads Course - Vital Signs Last Recorded V/S: Last Vital Signs Temp 98.2 F 03/17/18 05:52 Pulse 61 03/17/18 08:22 Resp 18 03/17/18 05:52 BP 202/79 H 03/17/18 08:23 Pulse Ox 97 03/17/18 05:52 - Orders/Labs/Meds Orders: Active Orders 24 hr Category Date Time Status Cardiac Monitoring [RC] . DIRECTED Care 03/17/18 06:06 Active EKG Documentation Completion [RC] STAT Care 03/17/18 06:07 Active Peripheral IV Care [RC] . DIRECTED Care 03/17/18 06:07 Active CULTURE URINE [RM] Stat Lab 03/17/18 09:43 Ordered Lisinopril [Prinivil] Med 03/17/18 09:00 Active 20 mg PO DAILY Sodium Chloride 0.9% [Normal Saline] 100 ml Med 03/17/18 08:00 Active IV ASDIRECTED Sodium Chloride 0.9% [Saline Flush] Med 03/17/18 06:06 Active 10 ml FLUSH ASDIRECTED PRN Sodium Chloride 0.9% [Saline Flush] Med 03/17/18 07:54 Active 10 ml FLUSH ONETIME PRN Peripheral IV Insertion Adult [OM.PC] Stat Oth 03/17/18 06:06 Ordered Medication Orders Sodium Chloride (Normal Saline) 100 mls @ 65 mls/hr IV ASDIRECTED LUCIO Last Admin: 03/17/18 08:16 Dose: 65 mls/hr Lisinopril (Prinivil) 20 mg PO DAILY LUCIO Last Admin: 03/17/18 08:23 Dose: 20 mg Sodium Chloride (Saline Flush) 10 ml FLUSH ASDIRECTED PRN PRN Reason: Keep Vein Open Last Admin: 03/17/18 07:18 Dose: 10 ml Admin: 03/17/18 06:20 Dose: 10 ml Sodium Chloride (Saline Flush) 10 ml FLUSH ONETIME PRN PRN Reason: IV FLUSH Last Admin: 03/17/18 08:16 Dose: 10 ml Labs: Laboratory Tests 03/17/18 03/17/18 03/17/18 Range/Units 06:00 06:00 06:00 WBC 5.82 (3.98-10.04) K/mm3 RBC 4.24 (3.98-5.22) M/mm3 Hgb 13.7 (11.2-15.7) gm/L Hct 41.2 (34.1-44.9) % MCV 97.2 H (79.4-94.8) fl MCH 32.3 H (25.6-32.2) pg MCHC 33.3 (32.2-35.5) g/dl RDW Std Deviation 46.7 H (36.4-46.3) fL Plt Count 199 (182-369) K/mm3 MPV 11.7 (9.4-12.3) fl Neut % (Auto) 60.7 (34.0-71.1) % Lymph % (Auto) 25.3 (19.3-51.7) % King % (Auto) 11.9 (4.7-12.5) % Eos % (Auto) 1.7 (0.7-5.8) Baso % (Auto) 0.2 (0.1-1.2) % Neut # (Auto) 3.54 (1.56-6.13) K/mm3 Lymph # (Auto) 1.47 (1.18-3.74) K/mm3 [place] # (Auto) 0.69 H (0.24-0.36) K/mm3 Eos # (Auto) 0.10 (0.04-0.36) K/mm3 Baso # (Auto) 0.01 (0.01-0.08) K/mm3 D-Dimer, Quantitative 1.43 H (0.19-0.50) mg/L Sodium 139 (136-145) mEq/L Potassium 4.1 (3.5-5.1) mEq/L Chloride 104 (98-107) mEq/L Carbon Dioxide 25 (21-32) mEq/L Anion Gap 14.1 (5-15) BUN 33 H (7-18) mg/dL Creatinine 1.5 H (0.55-1.02) mg/dL Est Cr Clr Drug Dosing 25.40 mL/min Estimated GFR (MDRD) 33 (>60) mL/min BUN/Creatinine Ratio 22.0 H (14-18) Glucose 132 H (83-115) mg/dL Calcium 8.6 (8.5-10.1) mg/dL Total Bilirubin 0.8 (0.2-1.0) mg/dL AST 17 (15-37) U/L ALT 22 (14-59) U/L Alkaline Phosphatase 63 (46-116) U/L Troponin I < 0.017 (0.00-0.056) ng/mL Total Protein 6.9 (6.4-8.2) g/dl Albumin 3.1 L (3.4-5.0) g/dl Globulin 3.8 gm/dL Albumin/Globulin Ratio 0.8 L (1-2) Urine Color (Yellow) Urine Appearance (Clear) Urine pH (5.0-8.0) Ur Specific [place] (1.005-1.030) Urine Protein (Negative) Urine Glucose (UA) (Negative) Urine Ketones (Negative) Urine Occult Blood (Negative) Urine Nitrite (Negative) Urine Bilirubin (Negative) Urine Urobilinogen (0.2-1.0) Ur Leukocyte Esterase (Negative) Urine RBC (0-5) /hpf Urine WBC (0-5) /hpf Ur Epithelial Cells (0-5) /hpf Urine Bacteria (FEW) /hpf Urine Mucus (FEW) /hpf 03/17/18 03/17/18 Range/Units 06:17 09:15 WBC (3.98-10.04) K/mm3 RBC (3.98-5.22) M/mm3 Hgb (11.2-15.7) gm/L Hct (34.1-44.9) % MCV (79.4-94.8) fl MCH (25.6-32.2) pg MCHC (32.2-35.5) g/dl RDW Std Deviation (36.4-46.3) fL Plt Count (182-369) K/mm3 MPV (9.4-12.3) fl Neut % (Auto) (34.0-71.1) % Lymph % (Auto) (19.3-51.7) % [place] % (Auto) (4.7-12.5) % Eos % (Auto) (0.7-5.8) Baso % (Auto) (0.1-1.2) % Neut # (Auto) (1.56-6.13) K/mm3 Lymph # (Auto) (1.18-3.74) K/mm3 [place] # (Auto) (0.24-0.36) K/mm3 Eos # (Auto) (0.04-0.36) K/mm3 Baso # (Auto) (0.01-0.08) K/mm3 D-Dimer, Quantitative (0.19-0.50) mg/L Sodium (136-145) mEq/L Potassium (3.5-5.1) mEq/L Chloride (98-107) mEq/L Carbon Dioxide (21-32) mEq/L Anion Gap (5-15) BUN (7-18) mg/dL Creatinine (0.55-1.02) mg/dL Est Cr Clr Drug Dosing mL/min Estimated GFR (MDRD) (>60) mL/min BUN/Creatinine Ratio (14-18) Glucose (83-115) mg/dL Calcium (8.5-10.1) mg/dL Total Bilirubin (0.2-1.0) mg/dL AST (15-37) U/L ALT (14-59) U/L Alkaline Phosphatase (46-116) U/L Troponin I < 0.017 (0.00-0.056) ng/mL Total Protein (6.4-8.2) g/dl Albumin (3.4-5.0) g/dl Globulin gm/dL Albumin/Globulin Ratio (1-2) Urine Color Light yellow (Yellow) Urine Appearance Slt cloudy H (Clear) Urine pH 7.5 (5.0-8.0) Ur Specific [place] 1.020 (1.005-1.030) Urine Protein Negative (Negative) Urine Glucose (UA) Negative (Negative) Urine Ketones Negative (Negative) Urine Occult Blood Trace-lysed H (Negative) Urine Nitrite Positive H (Negative) Urine Bilirubin Negative (Negative) Urine Urobilinogen 0.2 (0.2-1.0) Ur Leukocyte Esterase 2+ H (Negative) Urine RBC 5-10 H (0-5) /hpf Urine WBC 20-30 H (0-5) /hpf Ur Epithelial Cells 0-5 (0-5) /hpf Urine Bacteria Many H (FEW) /hpf Urine Mucus Few (FEW) /hpf Meds: Medications Generic Name Dose Route Start Last Admin Trade Name Freq PRN Reason Stop Dose Admin Sodium Chloride 100 mls @ 65 mls/hr 03/17/18 08:00 03/17/18 08:16 Normal Saline IV 65 mls/hr ASDIRECTED LUCIO Administration Lisinopril 20 mg 03/17/18 09:00 03/17/18 08:23 Prinivil PO 20 mg DAILY LUCIO Administration Sodium Chloride 10 ml 03/17/18 06:06 03/17/18 07:18 Saline Flush FLUSH 10 ml ASDIRECTED PRN Administration Keep Vein Open Sodium Chloride 10 ml 03/17/18 07:54 03/17/18 08:16 Saline Flush FLUSH 10 ml ONETIME PRN Administration IV FLUSH Discontinued Medications Generic Name Dose Route Start Last Admin Trade Name Freq PRN Reason Stop Dose Admin Aspirin 324 mg 03/17/18 06:06 03/17/18 06:20 Aspirin PO 03/17/18 06:07 324 mg ONETIME ONE Administration Sodium Chloride 500 mls @ 1,000 mls/hr 03/17/18 07:11 03/17/18 07:18 Normal Saline IV 03/17/18 07:40 1,000 mls/hr .BOLUS ONE Administration Iopamidol 100 ml 03/17/18 07:54 03/17/18 08:16 Isovue-370 (76%) IVPUSH 03/17/18 07:55 60 ml ONETIME ONE Administration Lisinopril 40 mg 03/17/18 09:00 Prinivil PO DAILY LUCIO Metoprolol Tartrate 100 mg 03/17/18 06:06 03/17/18 06:20 Lopressor PO 03/17/18 06:07 100 mg ONETIME ONE Administration Metoprolol Tartrate 50 mg 03/17/18 08:03 03/17/18 08:22 Lopressor PO 03/17/18 08:04 50 mg ONETIME ONE Administration - Re-Assessments/Exams Free Text/Narrative Re-Assessment/Exam: 03/17/18 06:41 I ordered an IV saline lock, EKG, CXR, labs, aspirin and lopressor 100mg by mouth. Her blood pressure was high at 203 systolic. Her EKG shows a paced rhythm of 70bpm with no acute changes. 03/17/18 07:12 Her CXR shows nothing acute. Her CBC looks good. Her D-dimer was elevated at 1.43. I have ordered a CT angio of her chest. Her creatinine was elevated at 1.5. I ordered a 500mL bolus with 150mL/hr after that. Her troponin is negative. Her glucose is 132. Her UA does show a UTI. I will need to treat her for that. It is change of shift Dr Tello to take over. Departure - Departure Disposition: Home, Self-Care 01 Clinical Impression: Anterior chest wall pain UTI (urinary tract infection) Qualifiers: Urinary tract infection type: site unspecified Hematuria presence: without hematuria Qualified Code(s): N39.0 - Urinary tract infection, site not specified Hypertension Qualifiers: Hypertension type: unspecified Qualified Code(s): I10 - Essential (primary) hypertension Prescriptions: Sulfamethoxazole/Trimethoprim [Bactrim Ds Tablet] 1 each PO BID #14 tablet Referrals: Mushtaq Andrews MD [Primary Care Provider] - Forms: ED Department Discharge Additional Instructions: Drink plenty of water to maintain hydration, to help recover from your current UTI. Bactrim DS antibiotic twice daily for 1 week. See your medical provider early next week as planned, return to ED as needed if symptoms worsening in any way. - My Orders Last 24 Hours: My Active Orders 03/17/18 09:00 Lisinopril [Prinivil] 20 mg PO DAILY 03/17/18 09:43 CULTURE URINE [RM] Stat - Assessment/Plan Last 24 Hours: My Active Orders 03/17/18 09:00 Lisinopril [Prinivil] 20 mg PO DAILY 03/17/18 09:43 CULTURE URINE [RM] Stat <Edison Tello - Last Filed: 03/17/18 10:05> Course - Re-Assessments/Exams Free Text/Narrative Re-Assessment/Exam: 03/17/18 09:45. Have assumed care from Dr. Lopes after change of shift. I agree with his history and exam as documented. Her chest CT was negative for PE. See radiology report for details. She does have nodules that are reported to be increased in number and size on prior CT on record. Patient and family are aware that she does have "cancer coming back in her chest". She was scheduled for CT tomorrow at the clinic. They realize they should not have to repeat this, the CT done today has been pushed over to [facility]. She has an appointment to see her Oncologist this coming Wednesday early next week. Her repeat troponin is negative. She's been resting fairly comfortably while here in the ED. She does have chest wall tenderness. She also does have a UTI. Prescription for Bactrim DS twice a day for 1 week has been sent to [facility]. Urine culture has been ordered. Discharge instructions as documented. Departure - Departure Time of Disposition: 10:03 Condition: Fair
[2018-03-17] MEDS ORDERED: Sodium Chloride 0.9% 500 ML IV ONE (07:11)
[2018-03-17] MEDS ORDERED: Iopamidol 755 Mg/ML 100 ML Bottle IVPUSH ONE (07:54)
[2018-03-17] MEDS ORDERED: Sodium Chloride 0.9% 10 ML Syringe FLUSH PRN (07:54)
[2018-03-17] MEDS ORDERED: Sodium Chloride 0.9% 100 ML IV SCH (08:00)
[2018-03-17] MEDS ORDERED: Metoprolol Tartrate 50 MG Tab PO ONE (08:03)
--- NOTE | 2018-03-17 08:46 | CT ---
CT chest Technique: Multiple axial sections were obtained through the chest. Intravenous contrast was utilized. Study has been performed as a pulmonary angiogram protocol. Comparison: Prior CT chest study of 05/03/17. Findings: Pulmonary arteries are well opacified. No filling defects are seen to indicate pulmonary embolism. Atherosclerotic calcification is noted within the thoracic aorta. Coronary artery calcification also noted. Surgical clips seen within the mediastinum. Infusion port is seen. No mediastinal or hilar adenopathy seen. No axillary adenopathy is seen. Small nodule noted within the right lung base measuring 5.6 mm. Larger parenchymal nodule showing slightly irregular margins seen within the right upper lung measuring 9 mm. Small nodule noted within the approximate superior segment of the right lower lung measuring 6 mm. Small nodule noted within the left upper lung measuring 3.7 mm. Small nodule noted within the lingula or left lower lung measuring 4.8 mm. No acute parenchymal densities are seen. Scattered areas of stable groundglass appearance are seen within both lungs. Heart is enlarged. Scattered degenerative spurring is noted within the spine. Visualized upper abdominal structures shows cyst within the left kidney. Several small hyperdense areas seen in left kidney most likely due to small hemorrhagic cysts. Impression: 1. Small nodules within both lungs. Some nodules represent an interval change and some nodules have slightly enlarged from previous exam making early metastatic disease a possibility. 2. No findings of pulmonary embolism. 3. Other incidental findings. Diagnostic code #9
[2018-03-17] MEDS ORDERED: Lisinopril 20 MG Tab PO SCH ×2 (09:00)
--- NOTE | 2018-03-17 09:16 | CR ---
Chest: Frontal view of the chest was obtained. Comparison: Prior chest x-ray of 05/03/17. Heart is mildly enlarged. Tortuous thoracic aorta is seen. Lungs are clear with no acute parenchymal densities. Pacemaker is noted. Right-sided infusion port is seen. Prior rib resection seen within the right upper chest. Impression: 1. Findings as noted above. Nothing acute is seen on frontal chest x-ray. Diagnostic code #2
[2018-03-17 10:24] VITALS: BP 160/88
== END 2018-03-17 10:20 | disposition home or self-care (01) ==
LOC: JD.ED 05:46
DX: R07.89 Other chest pain (principal); N39.0 Urinary tract infection, site not specified; I10 Essential (primary) hypertension; E11.9 Type 2 diabetes mellitus without complications; E03.9 Hypothyroidism, unspecified; Z79.899 Other long term (current) drug therapy; Z79.82 Long term (current) use of aspirin; Z88.5 Allergy status to narcotic agent; Z88.8 Allergy status to other drugs, medicaments and biological substances; Z88.6 Allergy status to analgesic agent
CPT/HCPCS: 36415; 71045; 71275; 80053; 81001; 84484; 85025; 85379; 87086; 87088; 87186; 93005; 96360; 96361; 99285; A9270; J7030; J7040; J7050; Q9967; 93010; 99284-25

== ENCOUNTER 2018-06-15 05:36 | Emergency (ER) | payer MEDICARE, BC ==
[2018-06-15] MEDS ORDERED: Sodium Chloride 0.9% 10 ML Syringe FLUSH PRN (06:13)
[2018-06-15] MEDS ORDERED: Sodium Chloride 0.9% 1,000 ML IV SCH (06:15)
[2018-06-15] MEDS ORDERED: Lisinopril 10 MG Tab PO ONE (06:16)
--- NOTE | 2018-06-15 06:23 | EDM.PDOC ---
<TeesaniyaHaroldoFarhad - Last Filed: 06/15/18 06:52> ED HPI GENERAL MEDICAL PROBLEM - General Chief Complaint: General Stated Complaint: LUMP UNDER ARM/SHINGLES Time Seen by Provider: 06/15/18 06:04 Source of Information: Reports: Patient, Family History Limitations: Reports: No Limitations - History of Present Illness INITIAL COMMENTS - FREE TEXT/NARRATIVE: The patient presents with right hand shaking and some numbness. This all started at 3am. She has been dealing with shingles for the past 3 weeks. She as on an antiviral and tramadol for pain. She has a lesion to her chest. She does have some discomfort with that. She also has a lesion on her back. She has a lump to her right axilla. She has a history of lung cancer and that is returning. She had a CT in February and there was some lesions seen. She is getting a CT tomorrow to look at the lump in the axilla and her lesions in her chest. She has a mild headache. She has no fever, chills, or cough. She has no nausea, vomiting or abdominal pain. She can walk okay and she has no numbness or weakness in her legs. She as no dysuria or hematuria. An US of the right axilla did show a possible reactive lymph node but a CT was recommended due to the history of cancer. Onset: Gradual Duration: Hour(s): (3) Location: Reports: Head, Chest Quality: Reports: Ache, Burning Severity: Mild Improves with: Reports: None Worsens with: Reports: None Context: Reports: Activity (She was sleeping when the shaking started) Associated Symptoms: Reports: Chest Pain, Headaches, Rash. Denies: Cough, Fever /Chills, Nausea/Vomiting, Shortness of Breath Left Arm Pain Score (Numeric/FACES): 10 - Related Data Allergies Allergy/AdvReac Type Severity Reaction Status Date / Time codeine Allergy Swollen Verified 06/15/18 05:51 Tongue duloxetine [From Cymbalta] Allergy Difficulty Verified 06/15/18 05:51 Breathing fentanyl Allergy Chest Pain Verified 06/15/18 05:51 hydrocodone Allergy Swollen Verified 06/15/18 05:51 Tongue hydromorphone [From Dilaudid] Allergy Fever Verified 06/15/18 05:51 Home Meds: Home Meds Levothyroxine 75 mcg PO DAILY 12/10/15 [History] Lisinopril 40 mg PO DAILY 12/10/15 [History] Furosemide [Lasix] 20 mg PO DAILY #30 tablet 03/17/16 [Rx] Latanoprost 1 drop OP BEDTIME 10/20/16 [History] Lidocaine/Prilocaine [EMLA Crm] 1 gm TOP Q6H PRN #1 tube 11/25/16 [Rx] Prochlorperazine [Compazine] 10 mg PO QID PRN 05/03/17 [History] Pantoprazole Sodium [Protonix] 40 mg PO DAILY 07/30/17 [History] Psyllium Husk [Metamucil] 1 tsp PO BID 07/30/17 [History] Aspirin 81 mg PO DAILY 03/17/18 [History] traMADol [Ultram] 50 mg PO Q8H PRN 03/17/18 [History] Past Medical History HEENT History: Reports: Glaucoma, Impaired Vision Other HEENT History: Wears glasses Cardiovascular History: Reports: High Cholesterol, Hypertension Other Cardiovascular History: chest pain/pressure, edema Respiratory History: Reports: SOB Other Respiratory History: Lung Cancer, Pulmonary nodule, Dyspnea on exertion Genitourinary History: Reports: Chronic Renal Insuffiency Other Genitourinary History: Contrast dye induced nephropathy, Microalbuminuria BLEMISH REMOVER History: Reports: Musculoskeletal History: Reports: Fibromyalgia, Osteoarthritis Endocrine/Metabolic History: Reports: Diabetes, Type II, Hypothyroidism, Vitamin D Deficiency Other Endocrine/Metabolic History: DM II (diet controlled), goiter, thyroid nodule Hematologic History: Reports: Blood Transfusion(s) Oncologic (Cancer) History: Reports: Lung - Infectious Disease History Infectious Disease History: Reports: Chicken Pox, MRSA, Shingles - Past Surgical History HEENT Surgical History: Reports: Cataract Surgery Cardiovascular Surgical History: Reports: Pacer Respiratory Surgical History: Reports: Thoracotomy GI Surgical History: Reports: Appendectomy Female Surgical History: Reports: Hysterectomy, Salpingo-Oophorectomy Endocrine Surgical History: Reports: Thyroidectomy Musculoskeletal Surgical History: Reports: Hip Replacement Other Musculoskeletal Surgeries/Procedures:: Left total hip replacement Social & Family History - Family History Family Medical History: Noncontributory - Tobacco Use Smoking Status *Q: Never Smoker - Caffeine Use Caffeine Use: Reports: None - Recreational Drug Use Recreational Drug Use: No - Living Situation & Occupation Living situation: Reports: , with Spouse Occupation: Retired ED ROS GENERAL - Review of Systems Review Of Systems: See Below Constitutional: Reports: No Symptoms HEENT: Reports: No Symptoms Respiratory: Reports: No Symptoms Cardiovascular: Reports: Chest Pain (Mid chest burning where her shingles lesion is) Endocrine: Reports: No Symptoms GI/Abdominal: Reports: No Symptoms : Reports: No Symptoms Musculoskeletal: Reports: Other (Lump to her right axilla) Skin: Reports: Rash ED EXAM, GENERAL - Physical Exam Exam: See Below Exam Limited By: No Limitations General Appearance: Alert, No Apparent Distress Ears: Normal External Exam Nose: Normal Inspection Head: Atraumatic, Normocephalic Neck: Normal Inspection Respiratory/Chest: No Respiratory Distress, Lungs Clear, Normal Breath Sounds Cardiovascular: Regular Rate, Rhythm, No Edema, No Murmur GI/Abdominal: Soft, Non-Tender, No Organomegaly, No Mass Back Exam: Normal Inspection Extremities: Normal Inspection Neurological: Alert, Oriented, Other (No weakness but she says she has some mild numbness to all of her fingers. 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 DIRECTED Care 06/15/18 06:13 Active EKG Documentation Completion [RC] STAT Care 06/15/18 06:14 Active Peripheral IV Care [RC] . DIRECTED Care 06/15/18 06:14 Active Chest 1V Frontal [CR] Stat Exams 06/15/18 06:14 Taken Sodium Chloride 0.9% [Normal Saline] 1,000 ml Med 06/15/18 06:15 Active IV ASDIRECTED Sodium Chloride 0.9% [Saline Flush] Med 06/15/18 06:13 Active 10 ml FLUSH ASDIRECTED PRN Peripheral IV Insertion Adult [OM.PC] Stat Oth 06/15/18 06:13 Ordered Medication Orders Sodium Chloride (Normal Saline) 1,000 mls @ 125 mls/hr IV ASDIRECTED LUCIO Last Admin: 06/15/18 06:26 Dose: 125 mls/hr Sodium Chloride (Saline Flush) 10 ml FLUSH ASDIRECTED PRN PRN Reason: Keep Vein Open Last Admin: 06/15/18 06:26 Dose: 10 ml Labs: Laboratory Tests 06/15/18 06/15/18 Range/Units 06:27 06:27 WBC 9.18 (3.98-10.04) K/mm3 RBC 4.28 (3.98-5.22) M/mm3 Hgb 14.0 (11.2-15.7) gm/L Hct 41.6 (34.1-44.9) % MCV 97.2 H (79.4-94.8) fl MCH 32.7 H (25.6-32.2) pg MCHC 33.7 (32.2-35.5) g/dl RDW Std Deviation 45.7 (36.4-46.3) fL Plt Count 258 (182-369) K/mm3 MPV 10.1 (9.4-12.3) fl Neut % (Auto) 76.5 H (34.0-71.1) % Lymph % (Auto) 14.3 L (19.3-51.7) % [place] % (Auto) 8.8 (4.7-12.5) % Eos % (Auto) 0.2 L (0.7-5.8) Baso % (Auto) 0.1 (0.1-1.2) % Neut # (Auto) 7.02 H (1.56-6.13) K/mm3 Lymph # (Auto) 1.31 (1.18-3.74) K/mm3 [place] # (Auto) 0.81 H (0.24-0.36) K/mm3 Eos # (Auto) 0.02 L (0.04-0.36) K/mm3 Baso # (Auto) 0.01 (0.01-0.08) K/mm3 Sodium 135 L (136-145) mEq/L Potassium 3.6 (3.5-5.1) mEq/L Chloride 102 (98-107) mEq/L Carbon Dioxide 24 (21-32) mEq/L Anion Gap 12.6 (5-15) BUN 26 H (7-18) mg/dL Creatinine 1.4 H (0.55-1.02) mg/dL Est Cr Clr Drug Dosing 26.75 mL/min Estimated GFR (MDRD) 36 (>60) mL/min BUN/Creatinine Ratio 18.6 H (14-18) Glucose 210 H (83-115) mg/dL Calcium 9.2 (8.5-10.1) mg/dL Total Bilirubin 0.7 (0.2-1.0) mg/dL AST 16 (15-37) U/L ALT 23 (14-59) U/L Alkaline Phosphatase 54 (46-116) U/L Troponin I < 0.017 (0.00-0.056) ng/mL Total Protein 7.0 (6.4-8.2) g/dl Albumin 3.2 L (3.4-5.0) g/dl Globulin 3.8 gm/dL Albumin/Globulin Ratio 0.8 L (1-2) Meds: Medications Generic Name Dose Route Start Last Admin Trade Name Freq PRN Reason Stop Dose Admin Sodium Chloride 1,000 mls @ 125 mls/hr 06/15/18 06:15 06/15/18 06:26 Normal Saline IV 125 mls/hr ASDIRECTED LUCIO Administration Sodium Chloride 10 ml 06/15/18 06:13 06/15/18 06:26 Saline Flush FLUSH 10 ml ASDIRECTED PRN Administration Keep Vein Open Discontinued Medications Generic Name Dose Route Start Last Admin Trade Name Freq PRN Reason Stop Dose Admin Labetalol HCl 20 mg 06/15/18 06:30 06/15/18 06:45 Normodyne IVPUSH 06/15/18 06:31 4 ml ONETIME ONE Administration Protocol Lisinopril 40 mg 06/15/18 06:16 06/15/18 06:25 Prinivil PO 06/15/18 06:17 40 mg ONETIME ONE Administration - Re-Assessments/Exams Free Text/Narrative Re-Assessment/Exam: 06/15/18 06:26 I ordered an IV NS at 125mL/hr, labs, EKG, CT of her head, and lisinopril. She did not take her meds this morning. 06/15/18 06:31 Her BP did not come down much so I ordered labetolol 20mg IV. 06/15/18 06:53 Her EKG shows an atrial paced rhythm with Q waves in the inferior and anterior leads. It is change of shift. Dr Krishnan to take over. Departure - Departure Disposition: Home, Self-Care 01 Clinical Impression: Pain in right axilla, Paresthesias in right hand, Herpes zoster complication - Discharge Information Referrals: Mushtaq Andrews MD [Primary Care Provider] - Forms: ED Department Discharge Additional Instructions: Evaluation the emergency room today in recurrence to shakiness primarily in the right hand and arm and pain in the right armpit. Recently diagnosed with shingles affecting the mid chest in the C4-C5 dermatome and then similarly in your back and traveling into the right armpit and arm towards the elbow. This started about 3 weeks ago. There is pain and tenderness particularly noted in the right armpit. Fatty tissue present there but I do not feel any evidence of a large lymph node or cancer. Chest x-ray today was normal. T of the brain revealed age-appropriate changes a vague density in the left side of the cerebellum which I do not believe is causing any side effects at this time. Primary problem is pain control. Suggest increasing the Tramadol from 50-100 mg every 6 hours as needed. In between May take Tylenol arthritis tablet for pain relief as needed. Follow-up with personal care physician next week and Dr. Amos next week as planned. <Keegan Krishnan - Last Filed: 06/15/18 08:19> Course - Re-Assessments/Exams Free Text/Narrative Re-Assessment/Exam: 06/15/18 07:[address] Jacob at change of shift.Labs are back. Total white count is 9.18 with a 676.5% neutrophil count. Hemoglobin is 14.0 with hematocrit of 41.6. MCV is elevated at 97.2. Platelet count is normal at 10 58,000. Sodium was 135 with potassium of 3.6. Chloride is 12 with a bicarbonate 24. Anion gap is 12.6. B1 is 26 with a creatinine of 1.4. GFR is 36 a stage III chronic kidney disease.. Glucose is mildly elevated at 210. Calcium normal at 9.2 bilirubin normal at 0.7 with remainder liver function normal. Troponin I is less than 0.017. Albumin fraction slightly low at 3.2. Labs don't reveal any significant abnormalities. CT of the head done reveals a hypodense lesion in the mid line --adjacent to the fourth ventricle and left side of the cerebellum. This measures about 2.2 cm x 1.5 cm. MRI will be need to confirm possible mass or with known lung cancer concern for metastatic lesion. This is well demarcated. Will await radiologist's report in this regard. Otherwise she should shows age-appropriate changes with diminished density within the periventricular white matter compatible with small vessel ischemic changes. 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 No evidence of intracranial hemorrhage or midline shift or mass effect noted. On my reassessment the patient is having no trouble with motor function and there is no ataxia. Finger to nose assessment and gait are both normal. She is scheduled for CT of her chest tomorrow regards to her lung cancer and follow-up with Dr. Parish oncologist next week Wednesday. At this time what we'll do is increase the tramadol to 100 mg every 6 hours for pain relief and use Tylenol arthritis tablet in between as needed for pain relief. She has discontinued the gabapentin because it was making her feel so ataxic. Currently she is not having any problems with her right hand function or tremor at this time as far as the lesion in the right exit lordosis will hopefully be viewed by CT of the chest tomorrow. I suspect most of it was fatty tissue that I identified on exam with evidence of herpes zoster rash within it. It appears to be more of a fatty lump rather than a lymph node or metastatic cancer. Decision made at this time not to pursue MRI of the brain. She is due for CT scan of her chest tomorrow to check on how her cancer of the lung is doing. MRI of the parenchyma be done as part of follow-up if so desired by oncology services. Departure - Departure Time of Disposition: 08:14 Condition: Fair - Discharge Information *PRESCRIPTION DRUG MONITORING PROGRAM REVIEWED*: Not Applicable *COPY OF PRESCRIPTION DRUG MONITORING REPORT IN PATIENT TOBY: Not Applicable
[2018-06-15] MEDS ORDERED: Labetalol 100 MG/20 ML MDV IVPUSH ONE (06:30)
--- NOTE | 2018-06-15 07:16 | CT ---
Addendum: Additional history given of lung cancer. There is a vague low-density lesion next to the fourth ventricle on the left side within the cerebellum measuring about 2.2 cm x 1.5 cm which could represent an intracranial metastasis. No significant edema is seen around this finding. MRI would be confirmatory if clinically needed. --- Addendum1 above dictated on [06/15/2018 07:50] by [Juana Durbin Hilton J.] --- --- Addendum1 above signed on [06/15/2018 07:50] by [Juana Durbin Hilton J.] --- --- Original report below dictated on [06/15/2018 07:12] by [Juana Durbin Hilton J.] --- --- Original report below signed on [06/15/2018 07:12] by [Juana Durbin, Lior Hermosillo] --- Head CT Technique: Multiple axial sections through the brain were obtained. Intravenous contrast was not utilized. Comparison: No prior intracranial imaging. Findings: Ventricles along the basal cisterns and sulci over convexities are mildly prominent. 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 Minimal diminished density is noted within the periventricular white matter compatible with small vessel ischemic demyelination change. No other abnormal parenchymal densities are seen. No evidence of intracranial hemorrhage. No midline shift or mass effect is seen. Bone window settings were reviewed which shows the visualized sinuses to appear clear. No acute calvarial abnormality is identified. Impression: 1. 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 2. Mild senescent change as noted above. 3. No acute intracranial abnormality is identified. Diagnostic code #2 --- Addendum1 signed ---
[2018-06-15 07:36] VITALS: BP 156/68
--- NOTE | 2018-06-15 10:28 | CR ---
Chest: Frontal view of the chest was obtained. Comparison: Prior chest x-ray of 03/17/18. Heart is slightly enlarged. Tortuous thoracic aorta is seen. Pacemaker is noted. Right-sided infusion port is seen. Previous resection of a small portion of the posterior sixth rib is seen which is stable. No acute bony abnormality is seen. Impression: 1. Findings as noted above. Nothing acute is seen. Diagnostic code #2
== END 2018-06-15 08:34 | disposition home or self-care (01) ==
LOC: JD.ED 05:36
DX: R20.2 Paresthesia of skin (principal); B02.9 Zoster without complications; M79.621 Pain in right upper arm; E11.9 Type 2 diabetes mellitus without complications; I10 Essential (primary) hypertension; Z88.5 Allergy status to narcotic agent; Z79.899 Other long term (current) drug therapy; Z88.8 Allergy status to other drugs, medicaments and biological substances
CPT/HCPCS: 36415; 70450; 71045; 80053; 84484; 85025; 93005; 96361; 96374; 99284; A9270; J3490; J7040; J7050

== ENCOUNTER 2018-12-30 10:05 | Emergency (ER) | payer MEDICARE, BC ==
[2018-12-30] MEDS ORDERED: Sodium Chloride 0.9% 10 ML Syringe FLUSH PRN (10:20)
[2018-12-30] MEDS: HYDROmorphone 1 MG/ML Syringe IVPUSH ONE ×2 (10:51→11:42)
--- NOTE | 2018-12-30 10:52 | CR ---
Chest: Portable view of the chest was obtained. Comparison: Prior chest x-ray of 06/15/18. Heart is enlarged. Pacemaker is noted. Slight atelectasis within left midlung is seen. No acute parenchymal change is seen. Stable appearing right-sided infusion catheter is seen. Bony structures show mild scoliosis within the spine with nothing acute. Impression: 1. Findings as noted above. Nothing acute is appreciated on portable chest x-ray. Diagnostic code #2
[2018-12-30] MEDS ORDERED: Aspirin 81 MG Tab.Chew PO ONE (13:55)
[2018-12-30] MEDS ORDERED: Metoprolol Tartrate 50 MG Tab PO ONE (13:56)
[2018-12-30] MEDS ORDERED: Heparin Sodium 5,000 Units/ML Vial IVPUSH ONE (13:57)
[2018-12-30] MEDS ORDERED: Nitroglycerin 2% Oint 1 GM UD Packet TOP ONE (13:59)
[2018-12-30] MEDS ORDERED: Heparin Sodium/D5W 25,000 UNITS/500 ML BAG IV SCH (14:00)
--- NOTE | 2018-12-30 14:28 | EDM.PDOC ---
ED HPI GENERAL MEDICAL PROBLEM - General Chief Complaint: Chest Pain Stated Complaint: [facility] Time Seen by Provider: 12/30/18 10:11 Source of Information: Reports: Patient, RN Notes Reviewed - History of Present Illness INITIAL COMMENTS - FREE TEXT/NARRATIVE: 83-year-old female presents to ED with onset of chest pain this morning about 1- 2 hours ago anterior chest without radiation. She had been doing some exercises in bed, some type of leg lifting and then also walking about her house. 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, EKG, Nitroglycerin Left Chest Pain Score (Numeric/FACES): 7 - Related Data Allergies Allergy/AdvReac Type Severity Reaction Status Date / Time codeine Allergy Swollen Verified 12/30/18 10:20 Tongue duloxetine [From Cymbalta] Allergy Difficulty Verified 12/30/18 10:20 Breathing fentanyl Allergy Chest Pain Verified 12/30/18 10:20 hydrocodone Allergy Swollen Verified 12/30/18 10:20 Tongue Home Meds: Home Meds Levothyroxine 75 mcg PO DAILY 12/10/15 [History] Lisinopril 40 mg PO DAILY 12/10/15 [History] Furosemide [Lasix] 20 mg PO DAILY #30 tablet 03/17/16 [Rx] Latanoprost 1 drop OP BEDTIME 10/20/16 [History] Lidocaine/Prilocaine [EMLA Crm] 1 gm TOP Q6H PRN #1 tube 11/25/16 [Rx] Prochlorperazine [Compazine] 10 mg PO QID PRN 05/03/17 [History] Pantoprazole Sodium [Protonix] 40 mg PO DAILY 07/30/17 [History] Psyllium Husk [Metamucil] 1 tsp PO BID 07/30/17 [History] Aspirin 81 mg PO DAILY 03/17/18 [History] traMADol [Ultram] 50 mg PO Q6H PRN 03/17/18 [History] Acetaminophen [Tylenol] 650 mg PO Q6H 12/30/18 [History] Cholecalciferol (Vitamin D3) [Vitamin D3] 2,000 units PO DAILY 12/30/18 [History ] Gabapentin [Neurontin] 100 mg PO TID 12/30/18 [History] Ketoconazole [Ketoconazole 2%] 1 applic TOP BID 12/30/18 [History] Metoprolol Succinate [Toprol Xl] 200 mg PO DAILY 12/30/18 [History] hydrOXYzine HCl [Atarax] 25 mg PO Q8H PRN 12/30/18 [History] Past Medical History HEENT History: Reports: Glaucoma, Impaired Vision Other HEENT History: Wears glasses Cardiovascular History: Reports: High Cholesterol, Hypertension Other Cardiovascular History: chest pain/pressure, edema Respiratory History: Reports: SOB Other Respiratory History: Lung Cancer, Pulmonary nodule, Dyspnea on exertion Genitourinary History: Reports: Chronic Renal Insuffiency Other Genitourinary History: Contrast dye induced nephropathy, Microalbuminuria 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: Musculoskeletal History: Reports: Fibromyalgia, Osteoarthritis Endocrine/Metabolic History: Reports: Diabetes, Type II, Hypothyroidism, Vitamin D Deficiency Other Endocrine/Metabolic History: DM II (diet controlled), goiter, thyroid nodule Hematologic History: Reports: Blood Transfusion(s) Oncologic (Cancer) History: Reports: Lung - Infectious Disease History Infectious Disease History: Reports: Chicken Pox, MRSA, Shingles - Past Surgical History HEENT Surgical History: Reports: Cataract Surgery Cardiovascular Surgical History: Reports: Pacer Respiratory Surgical History: Reports: Thoracotomy GI Surgical History: Reports: Appendectomy Female Surgical History: Reports: Hysterectomy, Salpingo-Oophorectomy Endocrine Surgical History: Reports: Thyroidectomy Musculoskeletal Surgical History: Reports: Hip Replacement Other Musculoskeletal Surgeries/Procedures:: Left total hip replacement Social & Family History - Family History Family Medical History: Noncontributory - Tobacco Use Smoking Status *Q: Never Smoker - Caffeine Use Caffeine Use: Reports: None - Recreational Drug Use Recreational Drug Use: No - Living Situation & Occupation Living situation: Reports: , with Spouse Occupation: Retired ED ROS GENERAL - Review of Systems Review Of Systems: See Below Constitutional: Denies: Fever, Chills, Diaphoresis HEENT: Denies: Sinus Problem, Throat Pain Respiratory: Denies: Shortness of Breath, Pleuritic Chest Pain, Cough Cardiovascular: Reports: Chest Pain GI/Abdominal: Denies: Abdominal Pain, Nausea, Vomiting Musculoskeletal: Reports: Shoulder Pain (mild, gone). Denies: Neck Pain Skin: Reports: No Symptoms Neurological: Denies: Numbness, Tingling, Trouble Speaking, Difficulty Walking, Weakness ED EXAM, GENERAL - Physical Exam Exam: See Below General Appearance: Alert, No Apparent Distress Eye Exam: Bilateral Eye: PERRL Throat/Mouth: Normal Inspection, Normal Oropharynx Head: Atraumatic. No: Facial Swelling Neck: Supple, Full Range of Motion, Other (no JVD) Respiratory/Chest: No Respiratory Distress, Lungs Clear, Normal Breath Sounds, Other (she does have tenderness L sternal border) Cardiovascular: Regular Rate, Rhythm GI/Abdominal: Soft, Non-Tender Back Exam: No: CVA Tenderness (L), CVA Tenderness (R) Extremities: Normal Inspection, Normal Range of Motion. No: Pedal Edema, Increased Warmth, Redness Neurological: Alert, Oriented, No Motor/Sensory Deficits EKG INTERPRETATION EKG Date: 12/30/18 Rhythm: Other (paced rythm) QRS: Normal ST-T: Other (very minimal elevation ant. leads) Course - Vital Signs Last Recorded V/S: Last Vital Signs Temp 97.8 F 12/30/18 14:50 Pulse 70 12/30/18 14:50 Resp 16 12/30/18 14:50 BP 181/83 H 12/30/18 14:50 Pulse Ox 97 12/30/18 14:50 - Orders/Labs/Meds Labs: Laboratory Tests 12/30/18 12/30/18 12/30/18 Range/Units 10:32 10:32 13:10 WBC 7.41 (3.98-10.04) K/mm3 RBC 4.34 (3.98-5.22) M/mm3 Hgb 14.1 (11.2-15.7) gm/L Hct 42.3 (34.1-44.9) % MCV 97.5 H (79.4-94.8) fl MCH 32.5 H (25.6-32.2) pg MCHC 33.3 (32.2-35.5) g/dl RDW Std Deviation 48.4 H (36.4-46.3) fL Plt Count 213 (182-369) K/mm3 MPV 11.5 (9.4-12.3) fl Neut % (Auto) 67.3 (34.0-71.1) % Lymph % (Auto) 22.7 (19.3-51.7) % Starr % (Auto) 9.2 (4.7-12.5) % Eos % (Auto) 0.4 L (0.7-5.8) Baso % (Auto) 0.3 (0.1-1.2) % Neut # (Auto) 4.99 (1.56-6.13) K/mm3 Lymph # (Auto) 1.68 (1.18-3.74) K/mm3 Starr # (Auto) 0.68 H (0.24-0.36) K/mm3 Eos # (Auto) 0.03 L (0.04-0.36) K/mm3 Baso # (Auto) 0.02 (0.01-0.08) K/mm3 Sodium 137 (136-145) mEq/L Potassium 4.2 (3.5-5.1) mEq/L Chloride 103 (98-107) mEq/L Carbon Dioxide 25 (21-32) mEq/L Anion Gap 13.2 (5-15) BUN 29 H (7-18) mg/dL Creatinine 1.4 H (0.55-1.02) mg/dL Est Cr Clr Drug Dosing TNP Estimated GFR (MDRD) 36 (>60) mL/min BUN/Creatinine Ratio 20.7 H (14-18) Glucose 201 H (83-115) mg/dL Calcium 9.2 (8.5-10.1) mg/dL Total Bilirubin 0.6 (0.2-1.0) mg/dL AST 14 L (15-37) U/L ALT 21 (14-59) U/L Alkaline Phosphatase 50 (46-116) U/L Troponin I < 0.017 0.212 H* (0.00-0.056) ng/mL Total Protein 6.9 (6.4-8.2) g/dl Albumin 3.1 L (3.4-5.0) g/dl Globulin 3.8 gm/dL Albumin/Globulin Ratio 0.8 L (1-2) Meds: Medications Discontinued Medications Generic Name Dose Route Start Last Admin Trade Name Freq PRN Reason Stop Dose Admin Aspirin 324 mg 12/30/18 13:55 12/30/18 14:17 Aspirin PO 12/30/18 13:56 Not Given ONETIME ONE Heparin Sodium (Porcine) 4,000 units 12/30/18 13:57 12/30/18 14:16 Heparin Sodium IVPUSH 12/30/18 13:58 4,000 units ONETIME ONE Administration Hydromorphone HCl 0.5 mg 12/30/18 10:20 12/30/18 11:42 Dilaudid IVPUSH 12/30/18 10:21 0.25 mg ONETIME ONE Administration Heparin Sodium/Dextrose 25,000 units in 500 mls @ 19.813 mls/hr 12/30/18 14: 00 12/30/18 14:16 Heparin 25,000 Units In D5w 500 Ml IV 12 units/kg/hr TITRATE LUCIO 19.813 mls/hr Administration Protocol 12 UNITS/KG/HR Metoprolol Tartrate 25 mg 12/30/18 13:56 12/30/18 14:11 Lopressor PO 12/30/18 13:57 25 mg ONETIME ONE Administration Nitroglycerin 1 gm 12/30/18 13:59 12/30/18 14:17 Nitro-Bid 2% TOP 12/30/18 14:00 1 gm ONETIME ONE Administration Sodium Chloride 10 ml 12/30/18 10:20 12/30/18 10:53 Saline Flush FLUSH 10 ml ASDIRECTED PRN Administration Keep Vein Open - Re-Assessments/Exams Free Text/Narrative Re-Assessment/Exam: 12/30/18 14:26 Initial troponin was negative at 0.017. Three-hour troponin has risen to 0.212, well into positive territory. She is pain-free after Dilaudid 0.25 mg 2 IV. She remains in paced rhythm. Other labs as documented. She has been given aspirin 324 orally, metoprolol 25 mg by mouth, heparin bolus and now also on heparin drip. She will be transferred to [facility], direct medical admission Dr. Grider, Hospitalist. She will be transferred by ground ambulance. Departure - Departure Time of Disposition: 14:30 Disposition: DC/Tfer to Acute Hospital 02 Reason for Transfer *Q: Other Condition: Fair Clinical Impression: Acute coronary syndrome Referrals: Mushtaq Andrews MD [Primary Care Provider] - Forms: ED Department Discharge
[2018-12-30 15:25] VITALS: BP 181/83
== END 2018-12-30 14:50 ==
LOC: JD.ED 10:05
DX: I24.9 Acute ischemic heart disease, unspecified (principal); E78.00 Pure hypercholesterolemia, unspecified; I12.9 Hypertensive chronic kidney disease with stage 1 through stage 4 chronic kidney disease, or unspecified chronic kidney disease; N18.9 Chronic kidney disease, unspecified; E11.22 Type 2 diabetes mellitus with diabetic chronic kidney disease; E03.9 Hypothyroidism, unspecified; Z79.82 Long term (current) use of aspirin; Z79.899 Other long term (current) drug therapy; Z88.5 Allergy status to narcotic agent; Z88.8 Allergy status to other drugs, medicaments and biological substances
CPT/HCPCS: 36415; 71045; 80053; 84484; 85025; 93005; 96365; 96375; 96376; 99285; A9270; J1170; J1644; 93010; 99284

== ENCOUNTER 2020-09-24 08:54 | Inpatient (IN) | payer MEDICARE, BC ==
[2020-09-24] MEDS ORDERED: Dextrose 5%-0.9% NaCl 1,000 ML IV SCH (09:30)
--- NOTE | 2020-09-24 09:30 | EDM.PDOC ---
ED HPI GENERAL MEDICAL PROBLEM - General Chief Complaint: General Stated Complaint: [facility] Time Seen by Provider: 09/24/20 09:24 Source of Information: Reports: Patient, EMS History Limitations: Reports: No Limitations - History of Present Illness INITIAL COMMENTS - FREE TEXT/NARRATIVE: 85-year-old female presents to the ED per [facility] in the accompanim ent of her also brought in by ambulance. Both are showing signs of COVID-19 illness with development of fever chills loss of taste and smell overwhelming fatigue paroxysmal nonproductive cough generalized myalgia and weakness. Patient reports her symptoms started WednesdaySeptember 18 . S reports that she has not eaten any solids for 4 days. She still taking some fluids. Patient has a history of right lung cancer treated with radiation and she believes right lower lobe lobectomy. She reports lung cancer present in her left lower lung for 5 years. Had a recent CT scan which is showing a large lymph node she reports close to her ribs. She is now supposed to see Dr. Parish her oncologist today but that appointment will be canceled due to her current illness. She has no definitive nausea or diarrhea. Feels short of breath at rest and worse with exertion. O2 sats are 96 to 97% on room air. Cough was worse at onset of illness with chills. Notes more fatigue and complete loss of appetite and generalized weakness. Onset: Sudden Onset Date: 09/18/20 Duration: Day(s):, Getting Worse Location: Reports: Chest (Intermittent paroxysmal nonproductive cough), Generalized (Generalized weakness and fatigue. Loss of appetite.) Quality: Reports: Ache (Neurolyse myalgia.), Other (Fatigue and complete loss of appetite.) Severity: Moderate Improves with: Reports: None Worsens with: Reports: Movement (Activity.) Context: Denies: Activity, Exercise, Lifting, Sick Contact, Trauma, Other Associated Symptoms: Reports: Cough (Been paroxysmal cough worse last week), Fever/Chills (Mild headache. Chills primarily no defined fever.), Headaches, Loss of Appetite (Complete loss of appetite for solid foods for 4 days.), Malaise, Shortness of Breath (Acute on chronic for her. She has a history of right lung cancer with right lower lobe lobectomy and currently has lung cancer in her left lung), Weakness (.). Denies: cough w sputum ( better now.), Nausea/Vomiting, Rash, Seizure, Syncope Treatments COMMUNITY NUTRITION EDUCATOR: Reports: Acetaminophen - Related Data Allergies Allergy/AdvReac Type Severity Reaction Status Date / Time codeine Allergy Swollen Verified 09/24/20 09:04 Tongue duloxetine [From Cymbalta] Allergy Difficulty Verified 09/24/20 09:04 Breathing fentanyl Allergy Chest Pain Verified 09/24/20 09:04 hydrocodone Allergy Swollen Verified 09/24/20 09:04 Tongue hydromorphone [From Dilaudid] Allergy Chills Verified 09/24/20 10:40 sulfamethoxazole Allergy Swelling Verified 09/24/20 10:40 [From Bactrim] trimethoprim [From Bactrim] Allergy Swelling Verified 09/24/20 10:40 Home Meds: Home Meds Levothyroxine 75 mcg PO DAILY 12/10/15 [History] Lisinopril 40 mg PO DAILY 12/10/15 [History] Furosemide [Lasix] 20 mg PO DAILY #30 tablet 03/17/16 [Rx] Latanoprost 1 drop EYEBOTH BEDTIME 10/20/16 [History] Lidocaine/Prilocaine [EMLA Crm] 1 gm TOP Q6H PRN #1 tube 11/25/16 [Rx] Prochlorperazine [Compazine] 10 mg PO QID PRN 05/03/17 [History] Psyllium Husk [Metamucil] 1 tsp PO BID 07/30/17 [History] Aspirin 81 mg PO DAILY 03/17/18 [History] traMADol [Ultram] 50 mg PO Q6H PRN 03/17/18 [History] Acetaminophen [Tylenol] 650 mg PO Q6H PRN 12/30/18 [History] Cholecalciferol (Vitamin D3) [Vitamin D3] 2,000 units PO DAILY 12/30/18 [History] Ketoconazole [Ketoconazole 2%] 1 applic TOP BID 12/30/18 [History] Metoprolol Succinate [Toprol Xl] 200 mg PO DAILY 12/30/18 [History] Nitroglycerin [Nitrostat] 0.4 mg PO ASDIRECTED PRN 09/24/20 [History] [place]-3/DHA/Epa/Fish Oil [[place] 3 500 Softgel] 1,000 mg PO DAILY 09/24/20 [History] Ondansetron [Zofran] 4 mg PO Q6H PRN 09/24/20 [History] amLODIPine [Norvasc] 5 mg PO DAILY 09/24/20 [History] atorvaSTATin [Lipitor] 40 mg PO BEDTIME 09/24/20 [History] Past Medical History HEENT History: Reports: Glaucoma, Impaired Vision Other HEENT History: Wears glasses Cardiovascular History: Reports: High Cholesterol, Hypertension, Pacemaker (Left upper anterior chest. Her rate is atrial paced rhythm at 60/min) Other Cardiovascular History: chest pain/pressure, edema Respiratory History: Reports: SOB Other Respiratory History: Lung Cancer, Pulmonary nodule, Dyspnea on exertion. Patient reports right lower lobe lobectomy she believes 2 years ago. Followed with postoperative radiation to the right lung field. Currently has left lower lobe lung cancer with recent CT done showing increased nodularity. She is supposed to be booked for a PET scan in the near future to see if she is a c andidate for any form of chemotherapy. Genitourinary History: Reports: Chronic Renal Insuffiency Other Genitourinary History: Contrast dye induced nephropathy, Microalbuminuria COMPUTER ANIMATOR History: Reports: Musculoskeletal History: Reports: Arthritis, Back Pain, Chronic, Fibromyalgia, Osteoarthritis, Osteoporosis Endocrine/Metabolic History: Reports: Diabetes, Type II, Hypothyroidism, Vitamin D Deficiency Other Endocrine/Metabolic History: DM II (diet controlled), goiter, thyroid nodule Hematologic History: Reports: Blood Transfusion(s) Oncologic (Cancer) History: Reports: Lung - Infectious Disease History Infectious Disease History: Reports: Chicken Pox, MRSA, Shingles - Past Surgical History HEENT Surgical History: Reports: Cataract Surgery Cardiovascular Surgical History: Reports: Pacer Respiratory Surgical History: Reports: Thoracotomy Other Respiratory Surgeries/Procedures: Bronchoscopy,Thoracotomy with RLL lobectomy GI Surgical History: Reports: Appendectomy, Colonoscopy Female Surgical History: Reports: Hysterectomy, Salpingo-Oophorectomy Endocrine Surgical History: Reports: Thyroidectomy Musculoskeletal Surgical History: Reports: Hip Replacement Other Musculoskeletal Surgeries/Procedures:: Left total hip replacement Oncologic Surgical History: Reports: Lobectomy, Other (See Below) Other Oncologic Surgeries/Procedures: lymph node biopsy Social & Family History - Family History Family Medical History: No Pertinent Family History - Tobacco Use Tobacco Use Status *Q: Never Tobacco User Second Hand Smoke Exposure: No - Caffeine Use Caffeine Use: Reports: None - Recreational Drug Use Recreational Drug Use: No - Living Situation & Occupation Living situation: Reports: , with Spouse Occupation: Retired ED ROS GENERAL - Review of Systems Review Of Systems: See Below Constitutional: Reports: Chills, Malaise, Weakness, Fatigue, Decreased Appetite, Weight Loss (Not eating any solids for 4 days. Chills with initial onset of illness.) HEENT: Reports: Glasses, Other (Patient has a history of glaucoma. Decreased visual acuity peripheral vision loss.) Respiratory: Reports: Shortness of Breath, Cough. Denies: Wheezing, Pleuritic Chest Pain, Sputum (Intermittent paroxysmal nonproductive cough worse with onset of illness better now.), Hemoptysis Cardiovascular: Reports: Blood Pressure Problem, Dyspnea on Exertion (Chronically.). Denies: Chest Pain, Claudication, Edema, Lightheadedness, Orthopnea Endocrine: Reports: Fatigue GI/Abdominal: Reports: Decreased Appetite (Severe loss of appetite for 4 days. Is taking some fluids only.). Denies: Abdominal Pain, Diarrhea, Nausea, Vomiting : Reports: Frequency, Incontinence (Occasional urge and stress incontinence.) Musculoskeletal: Reports: Back Pain, Other (Use myalgia particularly neck low back and thighs. Again worse with initial onset of illness better now.) Skin: Reports: No Symptoms Neurological: Reports: Difficulty Walking, Weakness. Denies: Confusion, Dizziness, Headache, Numbness, Syncope, Tingling Psychiatric: Reports: No Symptoms (Walks slowly.) Hematologic/Lymphatic: Reports: No Symptoms Immunologic: Reports: No Symptoms ED EXAM, GENERAL - Physical Exam Exam: See Below Exam Limited By: No Limitations General Appearance: Alert, WD/WN, Mild Distress, Other (Temperature is 36.9. Heart rate was 72 on the monitor. Respiratory 18 with O2 sats 96 to 97% room air BP 1 4075.) Eye Exam: Bilateral Eye: Normal Inspection (No blepharal pallor or scleral scleral icterus.), PERRL Ears: Normal TMs Throat/Mouth: Other (Tongue is dry and coated.) Head: Atraumatic, Normocephalic ( No oropharyngeal infection appreciated) Neck: Limited Range of Motion, Other (Supraclavicular or infraclavicular adenopathy appreciated.). No: Full Range of Motion (Crepitus on lateral rotation.), Carotid Bruit, Lymphadenopathy (L), Lymphadenopathy (R), Thyromegaly Respiratory/Chest: No Respiratory Distress, Lungs Clear, Normal Breath Sounds, Other (Port-A-Cath right upper anterior chest. Defibrillator pacemaker left upper anterior chest. Right-sided thoracotomy scar.). No: Chest Non-Tender, Respiratory Distress Cardiovascular: Regular Rate, Rhythm, No Edema, No Gallop, No Murmur, No Rub, Other (Shows atrial paced rhythm at 60/min.). No: Normal Peripheral Pulses Peripheral Pulses: 1+: Posterior Tibial (L), Posterior Tibial (R), Dorsalis Pedis (L), Dorsalis Pedis (R), 2+: Carotid (L), Carotid (R) GI/Abdominal: Normal Bowel Sounds, Soft, Non-Tender, No Organomegaly, No Mass, Pelvis Stable, Other Back Exam: Normal Inspection, Decreased Range of Motion, Other. No: Full Range of Motion, CVA Tenderness (L), CVA Tenderness (R), Paraspinal Tenderness Extremities: Normal Inspection, Normal Range of Motion, Non-Tender, Other Neurological: Alert, Oriented, CN II-XII Intact, Normal Cognition Psychiatric: Normal Affect, Normal Mood Skin Exam: Warm, Dry, Intact, Normal Color, No Rash #1 Interpretation EKG Date: 09/24/20 Time: 09:40 Rhythm: Other (atrial paced rhythm at 60 bpm.) Rate (Beats/Min): 60 [place]: Normal QRS: Other (Q waves in V1 and near Q waves V2 and V3 suggestive of old anteroseptal myocardial infarction. Associated poor R wave progression. Decreased voltage limb leads.) ST-T: Other (Nonspecific T wave flattening aVF) QT: Normal EKG Interpretation Comments: Abnormal ECG. Course - Vital Signs Last Recorded V/S: Last Vital Signs Temp 36.4 C 09/24/20 13:54 Pulse 66 09/24/20 13:54 Resp 18 09/24/20 13:54 BP 156/86 H 09/24/20 13:54 Pulse Ox 94 L 09/24/20 13:54 - Orders/Labs/Meds Orders: Active Orders 24 hr Category Date Time Status Patient Status [ADT] Routine ADT 09/24/20 14:08 Active EKG Documentation Completion [RC] STAT Care 09/24/20 09:29 Active Insert Montes Catheter [Insert Urinary Catheter] [OM.PC] Care 09/24/20 11:55 Ordered Stat Urinary Catheter Assessment [RC] ASDIRECTED Care 09/24/20 12:11 Active Vital Signs [RC] Q15M Care 09/24/20 11:35 Active CULTURE URINE [RM] Stat Lab 09/24/20 11:55 Received Famotidine [Pepcid] Med 09/24/20 11:35 Active 20 mg IVPUSH ONETIME PRN Sodium Chloride 0.9% [Saline Flush] Med 09/24/20 11:45 Active 30 ml FLUSH ASDIRECTED diphenhydrAMINE [Benadryl] Med 09/24/20 11:35 Active 50 mg IVPUSH ONETIME PRN methylPREDNISolone Sod Succ [Solu-MEDROL] Med 09/24/20 11:35 Active 125 mg IVPUSH ONETIME PRN Medication Orders Diphenhydramine HCl (Benadryl) 50 mg IVPUSH ONETIME PRN PRN Reason: hypersensitivity reaction Famotidine (Pepcid) 20 mg IVPUSH ONETIME PRN PRN Reason: hypersensitivity reaction Methylprednisolone Sodium Succinate (Solu-Medrol) 125 mg IVPUSH ONETIME PRN PRN Reason: hypersensitivity reaction Sodium Chloride (Saline Flush) 30 ml FLUSH ASDIRECTED [facility] Admin: 09/24/20 13:45 Dose: 30 ml Documented by: MATTIE Labs: Laboratory Tests 09/24/20 09/24/20 09/24/20 Range/Units 09:05 09:05 09:05 WBC 4.88 (3.98-10.04) K/mm3 RBC 4.73 (3.98-5.22) M/mm3 Hgb 15.1 (11.2-15.7) gm/dl Hct 45.5 H (34.1-44.9) % MCV 96.2 H (79.4-94.8) fl MCH 31.9 (25.6-32.2) pg MCHC 33.2 (32.2-35.5) g/dl RDW Std Deviation 47.3 H (36.4-46.3) fL Plt Count 140 L (182-369) K/mm3 MPV 12.2 (9.4-12.3) fl Neut % (Auto) 68.4 (34.0-71.1) % Lymph % (Auto) 15.6 L (19.3-51.7) % Chambers % (Auto) 15.8 H (4.7-12.5) % Eos % (Auto) 0 L (0.7-5.8) Baso % (Auto) 0.2 (0.1-1.2) % Neut # (Auto) 3.34 (1.56-6.13) K/mm3 Lymph # (Auto) 0.76 L (1.18-3.74) K/mm3 Chambers # (Auto) 0.77 H (0.24-0.36) K/mm3 Eos # (Auto) 0.00 L (0.04-0.36) K/mm3 Baso # (Auto) 0.01 (0.01-0.08) K/mm3 Manual Slide Review Normal smear ESR (0-20) mm/hr PT 10.1 (9.7-12.0) SECONDS INR 0.94 APTT 25.4 (21.7-31.4) SECONDS D-Dimer, Quantitative (0.19-0.50) mg/L Sodium 137 (136-145) mEq/L Potassium 3.5 (3.5-5.1) mEq/L Chloride 101 (98-107) mEq/L Carbon Dioxide 26 (21-32) mEq/L Anion Gap 13.5 (5-15) BUN 24 H (7-18) mg/dL Creatinine 1.5 H (0.55-1.02) mg/dL Est Cr Clr Drug Dosing 24.11 mL/min Estimated GFR (MDRD) 33 (>60) mL/min BUN/Creatinine Ratio 16.0 (14-18) Glucose 150 H (83-115) mg/dL Lactic Acid (0.4-2.0) mmol/L Calcium 8.7 (8.5-10.1) mg/dL Magnesium 1.9 (1.8-2.4) mg/dl Ferritin (8-252) ng/ml Total Bilirubin 0.8 (0.2-1.0) mg/dL AST 107 H (15-37) U/L ALT 223 H (14-59) U/L Alkaline Phosphatase 60 (46-116) U/L Lactate Dehydrogenase 335 H (81-234) U/L CK-MB (CK-2) < 0.5 (0-3.6) ng/ml Troponin I 0.022 (0.00-0.056) ng/mL C-Reactive Protein 1.1 H* (<1.0) mg/dL NT-Pro-B Natriuret Pep (0-450) pg/mL Total Protein 7.4 (6.4-8.2) g/dl Albumin 3.2 L (3.4-5.0) g/dl Globulin 4.2 gm/dL Albumin/Globulin Ratio 0.8 L (1-2) Urine Color (Yellow) Urine Appearance (Clear) Urine pH (5.0-8.0) Ur Specific [place] (1.005-1.030) Urine Protein (Negative) Urine Glucose (UA) (Negative) Urine Ketones (Negative) Urine Occult Blood (Negative) Urine Nitrite (Negative) Urine Bilirubin (Negative) Urine Urobilinogen (0.2-1.0) Ur Leukocyte Esterase (Negative) Urine RBC (0-5) /hpf Urine WBC (0-5) /hpf Ur Squamous Epith Cells (0-5) /hpf Urine Bacteria (FEW) /hpf Urine Mucus (FEW) /hpf SARS-CoV-2 RNA (CATIE) (NEGATIVE) 09/24/20 09/24/20 09/24/20 Range/Units 09:05 09:05 09:05 WBC (3.98-10.04) K/mm3 RBC (3.98-5.22) M/mm3 Hgb (11.2-15.7) gm/dl Hct (34.1-44.9) % MCV (79.4-94.8) fl MCH (25.6-32.2) pg MCHC (32.2-35.5) g/dl RDW Std Deviation (36.4-46.3) fL Plt Count (182-369) K/mm3 MPV (9.4-12.3) fl Neut % (Auto) (34.0-71.1) % Lymph % (Auto) (19.3-51.7) % Chambers % (Auto) (4.7-12.5) % Eos % (Auto) (0.7-5.8) Baso % (Auto) (0.1-1.2) % Neut # (Auto) (1.56-6.13) K/mm3 Lymph # (Auto) (1.18-3.74) K/mm3 Chambers # (Auto) (0.24-0.36) K/mm3 Eos # (Auto) (0.04-0.36) K/mm3 Baso # (Auto) (0.01-0.08) K/mm3 Manual Slide Review ESR 14 (0-20) mm/hr PT (9.7-12.0) SECONDS INR APTT (21.7-31.4) SECONDS D-Dimer, Quantitative 0.76 H (0.19-0.50) mg/L Sodium (136-145) mEq/L Potassium (3.5-5.1) mEq/L Chloride (98-107) mEq/L Carbon Dioxide (21-32) mEq/L Anion Gap (5-15) BUN (7-18) mg/dL Creatinine (0.55-1.02) mg/dL Est Cr Clr Drug Dosing mL/min Estimated GFR (MDRD) (>60) mL/min BUN/Creatinine Ratio (14-18) Glucose (83-115) mg/dL Lactic Acid (0.4-2.0) mmol/L Calcium (8.5-10.1) mg/dL Magnesium (1.8-2.4) mg/dl Ferritin 580 H (8-252) ng/ml Total Bilirubin (0.2-1.0) mg/dL AST (15-37) U/L ALT (14-59) U/L Alkaline Phosphatase (46-116) U/L Lactate Dehydrogenase (81-234) U/L CK-MB (CK-2) (0-3.6) ng/ml Troponin I (0.00-0.056) ng/mL C-Reactive Protein (<1.0) mg/dL NT-Pro-B Natriuret Pep (0-450) pg/mL Total Protein (6.4-8.2) g/dl Albumin (3.4-5.0) g/dl Globulin gm/dL Albumin/Globulin Ratio (1-2) Urine Color (Yellow) Urine Appearance (Clear) Urine pH (5.0-8.0) Ur Specific [place] (1.005-1.030) Urine Protein (Negative) Urine Glucose (UA) (Negative) Urine Ketones (Negative) Urine Occult Blood (Negative) Urine Nitrite (Negative) Urine Bilirubin (Negative) Urine Urobilinogen (0.2-1.0) Ur Leukocyte Esterase (Negative) Urine RBC (0-5) /hpf Urine WBC (0-5) /hpf Ur Squamous Epith Cells (0-5) /hpf Urine Bacteria (FEW) /hpf Urine Mucus (FEW) /hpf SARS-CoV-2 RNA (CATIE) (NEGATIVE) 09/24/20 09/24/20 09/24/20 Range/Units 09:05 09:25 09:59 WBC (3.98-10.04) K/mm3 RBC (3.98-5.22) M/mm3 Hgb (11.2-15.7) gm/dl Hct (34.1-44.9) % MCV (79.4-94.8) fl MCH (25.6-32.2) pg MCHC (32.2-35.5) g/dl RDW Std Deviation (36.4-46.3) fL Plt Count (182-369) K/mm3 MPV (9.4-12.3) fl Neut % (Auto) (34.0-71.1) % Lymph % (Auto) (19.3-51.7) % Chambers % (Auto) (4.7-12.5) % Eos % (Auto) (0.7-5.8) Baso % (Auto) (0.1-1.2) % Neut # (Auto) (1.56-6.13) K/mm3 Lymph # (Auto) (1.18-3.74) K/mm3 Chambers # (Auto) (0.24-0.36) K/mm3 Eos # (Auto) (0.04-0.36) K/mm3 Baso # (Auto) (0.01-0.08) K/mm3 Manual Slide Review ESR (0-20) mm/hr PT (9.7-12.0) SECONDS INR APTT (21.7-31.4) SECONDS D-Dimer, Quantitative (0.19-0.50) mg/L Sodium (136-145) mEq/L Potassium (3.5-5.1) mEq/L Chloride (98-107) mEq/L Carbon Dioxide (21-32) mEq/L Anion Gap (5-15) BUN (7-18) mg/dL Creatinine (0.55-1.02) mg/dL Est Cr Clr Drug Dosing mL/min Estimated GFR (MDRD) (>60) mL/min BUN/Creatinine Ratio (14-18) Glucose (83-115) mg/dL Lactic Acid 1.2 (0.4-2.0) mmol/L Calcium (8.5-10.1) mg/dL Magnesium (1.8-2.4) mg/dl Ferritin (8-252) ng/ml Total Bilirubin (0.2-1.0) mg/dL AST (15-37) U/L ALT (14-59) U/L Alkaline Phosphatase (46-116) U/L Lactate Dehydrogenase (81-234) U/L CK-MB (CK-2) (0-3.6) ng/ml Troponin I (0.00-0.056) ng/mL C-Reactive Protein (<1.0) mg/dL NT-Pro-B Natriuret Pep 1077 H (0-450) pg/mL Total Protein (6.4-8.2) g/dl Albumin (3.4-5.0) g/dl Globulin gm/dL Albumin/Globulin Ratio (1-2) Urine Color (Yellow) Urine Appearance (Clear) Urine pH (5.0-8.0) Ur Specific [place] (1.005-1.030) Urine Protein (Negative) Urine Glucose (UA) (Negative) Urine Ketones (Negative) Urine Occult Blood (Negative) Urine Nitrite (Negative) Urine Bilirubin (Negative) Urine Urobilinogen (0.2-1.0) Ur Leukocyte Esterase (Negative) Urine RBC (0-5) /hpf Urine WBC (0-5) /hpf Ur Squamous Epith Cells (0-5) /hpf Urine Bacteria (FEW) /hpf Urine Mucus (FEW) /hpf SARS-CoV-2 RNA (CATIE) Positive H (NEGATIVE) 09/24/20 Range/Units 11:55 WBC (3.98-10.04) K/mm3 RBC (3.98-5.22) M/mm3 Hgb (11.2-15.7) gm/dl Hct (34.1-44.9) % MCV (79.4-94.8) fl MCH (25.6-32.2) pg MCHC (32.2-35.5) g/dl RDW Std Deviation (36.4-46.3) fL Plt Count (182-369) K/mm3 MPV (9.4-12.3) fl Neut % (Auto) (34.0-71.1) % Lymph % (Auto) (19.3-51.7) % Chambers % (Auto) (4.7-12.5) % Eos % (Auto) (0.7-5.8) Baso % (Auto) (0.1-1.2) % Neut # (Auto) (1.56-6.13) K/mm3 Lymph # (Auto) (1.18-3.74) K/mm3 Chambers # (Auto) (0.24-0.36) K/mm3 Eos # (Auto) (0.04-0.36) K/mm3 Baso # (Auto) (0.01-0.08) K/mm3 Manual Slide Review ESR (0-20) mm/hr PT (9.7-12.0) SECONDS INR APTT (21.7-31.4) SECONDS D-Dimer, Quantitative (0.19-0.50) mg/L Sodium (136-145) mEq/L Potassium (3.5-5.1) mEq/L Chloride (98-107) mEq/L Carbon Dioxide (21-32) mEq/L Anion Gap (5-15) BUN (7-18) mg/dL Creatinine (0.55-1.02) mg/dL Est Cr Clr Drug Dosing mL/min Estimated GFR (MDRD) (>60) mL/min BUN/Creatinine Ratio (14-18) Glucose (83-115) mg/dL Lactic Acid (0.4-2.0) mmol/L Calcium (8.5-10.1) mg/dL Magnesium (1.8-2.4) mg/dl Ferritin (8-252) ng/ml Total Bilirubin (0.2-1.0) mg/dL AST (15-37) U/L ALT (14-59) U/L Alkaline Phosphatase (46-116) U/L Lactate Dehydrogenase (81-234) U/L CK-MB (CK-2) (0-3.6) ng/ml Troponin I (0.00-0.056) ng/mL C-Reactive Protein (<1.0) mg/dL NT-Pro-B Natriuret Pep (0-450) pg/mL Total Protein (6.4-8.2) g/dl Albumin (3.4-5.0) g/dl Globulin gm/dL Albumin/Globulin Ratio (1-2) Urine Color Yellow (Yellow) Urine Appearance Cloudy H (Clear) Urine pH 6.5 (5.0-8.0) Ur Specific [place] 1.020 (1.005-1.030) Urine Protein 2+ H (Negative) Urine Glucose (UA) Negative (Negative) Urine Ketones Negative (Negative) Urine Occult Blood Trace-lysed H (Negative) Urine Nitrite Negative (Negative) Urine Bilirubin Negative (Negative) Urine Urobilinogen 0.2 (0.2-1.0) Ur Leukocyte Esterase 2+ H (Negative) Urine RBC 0-5 (0-5) /hpf Urine WBC 30-40 H (0-5) /hpf Ur Squamous Epith Cells 0-5 (0-5) /hpf Urine Bacteria Many H (FEW) /hpf Urine Mucus Not seen (FEW) /hpf SARS-CoV-2 RNA (CATIE) (NEGATIVE) Meds: Medications Generic Name Dose Route Start Last Admin Trade Name Freq PRN Reason Stop Dose Admin Diphenhydramine HCl 50 mg 09/24/20 11:35 Benadryl IVPUSH ONETIME PRN hypersensitivity reaction Famotidine 20 mg 09/24/20 11:35 Pepcid IVPUSH ONETIME PRN hypersensitivity reaction Methylprednisolone Sodium Succinate 125 mg 09/24/20 11:35 Solu-Medrol IVPUSH ONETIME PRN hypersensitivity reaction Sodium Chloride 30 ml 09/24/20 11:45 09/24/20 13:45 Saline Flush FLUSH 30 ml ASDIRECTED LUCIO Administration Discontinued Medications Generic Name Dose Route Start Last Admin Trade Name Freq PRN Reason Stop Dose Admin Epinephrine HCl 0.3 mg 09/24/20 11:35 Adrenalin IM 09/24/20 11:36 ONETIME ONE Furosemide 40 mg 09/24/20 12:45 09/24/20 13:50 Lasix IVPUSH 09/24/20 12:46 40 mg NOW ONE Administration Dextrose/Sodium Chloride 1,000 mls @ 150 mls/hr 09/24/20 09:30 09/24/20 10:02 Dextrose 5%-Normal Saline IV 150 mls/hr ASDIRECTED LUCIO Administration Non-Formulary Medication 1,200 250 mls @ 250 mls/hr 09/24/20 11:35 mg/ Non-Formulary Medication IV 09/24/20 12:34 1,200 mg/ Sodium Chloride ONETIME ONE Non-Formulary Medication 1,200 250 mls @ 250 mls/hr 09/24/20 12:30 09/24/20 12:25 mg/ Non-Formulary Medication IV 09/24/20 13:29 250 mls/hr 1,200 mg/ Sodium Chloride ONETIME ONE Administration - Radiology Interpretation Free Text/Narrative:: 85-year-old female presents to the ED per [facility]. Of note her also came in by [facility] at the same time. Both are showing signs and symptoms of COVID-19 illness. And believes her symptoms started suddenly September 18. Initial onset of loss of sense of taste smell nasal congestion generalized myalgia and initially quite a severe paroxysmal nonproductive cough. She presents now with inability to eat for the last 4 days with overwhelming fatigue. No nausea vomiting or diarrhea. Generalized weakness. Patient has a history of lung cancer involving both right and left lower lung warren. Previous right lower lobe lobectomy and radiation therapy to the right lung. Currently being monitored for left lower lung cancer which is growing slowly. Recent CT suggested a new nodule within the left lung. She is followed by Dr. Parish oncologist in [place]. That she was supposed to have an appoint with him today. She is going to be booked for a PET scan to see if she is a candidate for chemotherapy. He did have 2 doses of chemotherapy prior to right lower lobe lobectomy 2 years ago. Believe her O2 sats are 97% on room air. Plan IV will be D5 normal saline at 150 mils per hour. COVID-19 screen. Chest x-ray ECG and cardiac work-up. - Re-Assessments/Exams Free Text/Narrative Re-Assessment/Exam: 09/24/20 10:20: Portable chest x-ray reveals an increased density within the right upper anterior lung which is seen in is an interval change from prior exam. Right-sided infusion catheter is seen. Bichamber pacemaker is noted. Heart size at the upper limits of normal. Several nodular densities are seen within the left chest and difficult to completely exclude metastatic disease. Patient is known to have lung cancer left lower lobe. Bony structures are grossly intact. Parenchymal density within the right upper chest is an interval change from prior study. Uncertain if this represents treated lung cancer. Of note the patient did have right-sided lung surgery for removal of a malignant tumor and she cannot remember if it was upper or lower. She also had radiation to this area. 09/24/20 11:20 White count is 4.88. With 68% neutrophils. Hemoglobin is 15.1 with hematocrit of 45.5. MCV is mildly elevated at 96.2. Platelets are low normal at 140,000. Sed rate was 14. PT is 10.1 with an INR of 0.94. PTT is 25.4. D-dimer is 0.76 mildly elevated. Sodium was 137 with potassium low normal at 3.5. Chloride is 101 with a bicarb of 26. Anion gap is 13.5. BUN is mildly elevated at 24 with a creatinine of 1.5. Estimated GFR is 33 i.e. stage IIIb renal insufficiency. Glucose is 150. Lactic acid is 1.2. Calcium is 8.7. Magnesium 1.9. Serum ferritin is elevated at 580. Total bilirubin is 0.8 with an AST of 107 and ALT of 223. Alkaline phosphatase is 60. LDH is 335. CK-MB is less than 0.5 and troponin I is less than 0.022. C-reactive protein mildly elevated at 1.1 BNP 1077. Total protein is 7.4 with an albumin fraction low at 3.2. COVID-19 screen is positive. 09/24/20 11:36 patient's O2 sats are ranging between 93 and 97%. She is therefore a potential candidate for Regeneron and she has accepted treatment with this medication. I spoke with Akua Suellensam and does arrival to provide information about Regeneron treatment for herself. I offered for the patient and caregiver FABIANO Regeneron fax sheet to read and review. I stated the drug has been approved by an emergency use authorization process and has not filled fully vetted by the FDA or approved at this time. The patient meets the EUA requirements. I discussed there are other potential treatment options that are currently not FDA approved to treat COVID-19. Offered opportunity ask questions and all questions were answered. Patient Akua Smith voiced understanding and agreed to proceed with treatment for herself. 09/24/20 12:15 Urinalysis is now back and shows 2+ proteinuria trace of lysed occult blood 2+ leukocyte esterase suggesting urinary tract infection. The micro is pending. Urine culture will be ordered. 09/24/20 13:00 and is tolerating the Regeneron infusion well. Her 02 sats however have decreased to 92 to 94% on room air. She does have mild congestive failure. The infusion contains approximately 250 mils of fluid. She will be given Lasix 40 mg IV. 09/24/20 14:16 I have phoned the lab to obtain her micro on her urine as they did not send it over. The micro does in fact show 30-40 white blood cells per high-power field and therefore she will require antibiotic treatment. Discussed these findings with Dr. Morelos on-call hospitalist. Initially was hoped that the patient would respond to Regeneron and be able to go home. However while in the emergency room over the last 3 to 4 hours she has developed gradual hypoxemia and it is felt unsafe to send her home at this time. Patient will therefore be admitted to hospital. She is currently on day 7 of COVID-19 illness by clinical history. Patient will be admitted to the hospital due to COVID-19 illness with urinary tract infection and developing hypoxemia. 2 sats have dropped from 96% at the time of initial assessment to around 91 to 93% on room air. Departure - Departure Time of Disposition: 14:21 Disposition: Admitted As Inpatient 67 Condition: Fair Clinical Impression: COVID-19 determined by clinical diagnostic criteria, Hypoxemia, Elevated serum glutamic pyruvic transaminase (SGPT) level Urinary tract infection Qualifiers: Urinary tract infection type: site unspecified Hematuria presence: without hematuria Qualified Code(s): N39.0 - Urinary tract infection, site not specified Carcinoma, lung Qualifiers: Laterality: left Qualified Code(s): C34.92 - Malignant neoplasm of unspecified part of left bronchus or lung Chronic renal insufficiency, stage III (moderate) Qualifiers: Chronic kidney disease stage 3 subtype: stage 3b (GFR 30-44) Qualified Code(s): N18.32 - Chronic kidney disease, stage 3b Congestive heart failure Qualifiers: Qualified Code(s): I50.32 - Chronic diastolic (congestive) heart failure - Discharge Information *PRESCRIPTION DRUG MONITORING PROGRAM REVIEWED*: Not Applicable *COPY OF PRESCRIPTION DRUG MONITORING REPORT IN PATIENT TOBY: Not Applicable Referrals: Mushtaq Andrews MD [Primary Care Provider] - Forms: ED Department Discharge Sepsis Event Note (ED) - Evaluation Sepsis Screening Result: No Definite Risk - Focused Exam Vital Signs: Vital Signs Temp Pulse Resp BP Pulse Ox 09/24/20 13:54 36.4 C 66 18 156/86 H 94 L 09/24/20 12:27 35.8 C L 60 16 158/75 H 97 09/24/20 08:54 36.9 C 72 18 140/75 97 - My Orders Last 24 Hours: My Active Orders 09/24/20 09:29 EKG Documentation Completion [RC] STAT 09/24/20 11:35 Vital Signs [RC] Q15M Famotidine [Pepcid] 20 mg IVPUSH ONETIME PRN diphenhydrAMINE [Benadryl] 50 mg IVPUSH ONETIME PRN methylPREDNISolone Sod Succ [Solu-MEDROL] 125 mg IVPUSH ONETIME PRN 09/24/20 11:45 Sodium Chloride 0.9% [Saline Flush] 30 ml FLUSH ASDIRECTED 09/24/20 11:55 Insert Montes Catheter [Insert Urinary Catheter] [OM.PC] Stat CULTURE URINE [RM] Stat 09/24/20 12:11 Urinary Catheter Assessment [RC] ASDIRECTED 09/24/20 14:08 Patient Status [ADT] Routine - Assessment/Plan Last 24 Hours: My Active Orders 09/24/20 09:29 EKG Documentation Completion [RC] STAT 09/24/20 11:35 Vital Signs [RC] Q15M Famotidine [Pepcid] 20 mg IVPUSH ONETIME PRN diphenhydrAMINE [Benadryl] 50 mg IVPUSH ONETIME PRN methylPREDNISolone Sod Succ [Solu-MEDROL] 125 mg IVPUSH ONETIME PRN 09/24/20 11:45 Sodium Chloride 0.9% [Saline Flush] 30 ml FLUSH ASDIRECTED 09/24/20 11:55 Insert Montes Catheter [Insert Urinary Catheter] [OM.PC] Stat CULTURE URINE [RM] Stat 09/24/20 12:11 Urinary Catheter Assessment [RC] ASDIRECTED 09/24/20 14:08 Patient Status [ADT] Routine
--- NOTE | 2020-09-24 10:37 | CR ---
Chest: Portable view of the chest was obtained. Comparison: Previous chest x-ray of 12/30/18. Increased density within the right upper chest is seen which is an interval change from prior exam. Right-sided infusion catheter is seen. Bichamber pacemaker is noted. Heart size is at the upper limits of normal. Several nodular densities are seen within the left chest and difficult to completely exclude metastatic disease. Bony structures are grossly intact. Impression: 1. Parenchymal density within the right upper chest as an interval change from prior study. Uncertain if this represents treated lung cancer, other metastatic disease or represents an area of pneumonia. 2. Several nodular densities within the right chest raising the possibility of metastatic disease. 3. Other findings which are stable as noted above. Diagnostic code #9
[2020-09-24] MEDS ORDERED: EPINEPHrine 1 MG/ML SDV IM ONE (11:35)
[2020-09-24] MEDS ORDERED: Casirivimab 1,200 MG, Imdevimab 1,200 MG in Sodium Chloride 0.9% 230 ML IV ONE ×2 (11:35→12:30)
[2020-09-24] MEDS ORDERED: diphenhydrAMINE 50 MG/ML SDV IVPUSH PRN (11:35)
[2020-09-24] MEDS ORDERED: Famotidine 20 MG/2 ML SDV IVPUSH PRN (11:35)
[2020-09-24] MEDS ORDERED: methylPREDNISolone Sodium Succinate 125 MG/2 ML SDV IVPUSH PRN (11:35)
[2020-09-24] MEDS ORDERED: Sodium Chloride 0.9% 10 ML Syringe FLUSH SCH (11:45)
--- NOTE | 2020-09-24 11:57 | PCM.HP.2 ---
H&P History of Present Illness - General Date of Service: 09/24/20 Source of Information: Patient, Old Records, Provider, RN, RN Notes Reviewed History Limitations: Reports: No Limitations - History of Present Illness Initial Comments - Free Text/Narative: This is an 85 yo female who presented to ED on 09/24/2020 via [facility] with concerns over COVID-19 symptoms. Patient reportedly has fever and chills with loss of taste and smell, fatigue, nonproductive cough, generalized myalgias and weakness. Of note her was also brought in via ambulance for similar symptoms. Per the patient symptoms started on September 18. She reports she has not had anything solid for approximately 4 days but has been able to take in some fluids. Patient has a history of right lung cancer which was treated with radiation and she believes a lobectomy. She is noted to have a recurrence in her left lung for the past [address] scan showed a large lymph node and she was supposed to follow-up with Dr. Cortes, oncology, today for a PET scan. Denies any nausea or diarrhea. Reports dyspnea at rest and worse with tomas. Saturations on arrival are noted to be 96-97% on room air. In the ED temp was 35.8 Celsius. Pulse 60. Respirations 16. Blood pressure 150/75. Pulse ox 97%. Twelve-lead EKG is obtained showing a atrial paced rhythm at 60 bpm. 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 Associated poor R wave progression and decreased voltage in limb leads is noted. There is T wave flattening in aVF. Labs are obtained with a WBC of 4.88. Hemoglobin 15.1. Hematocrit 45.5. Platelets are low at 140. Neutrophils are normal at 60.4. INR is 0.94. Sodium 137. Potassium 3.5. Chloride 101. Carbon dioxide 26. Anion gap is 13.5. BUN is 24. Creatinine 1.5. GFR is 33. Glucose is high at 150. Calcium 8.7. Magnesium 1.9. Bilirubin 0.8. AST is 107, ALT 223, alkaline phosphatase 60. LDH is 335. CK-MB is less than 0.5. Troponin 0 0.022. CRP is 1.1. Albumin is 3.2. ESR is 14. D-dimer 0.76. Ferritin 580. Lactic acid is 1.2. proBNP is 1077. SARS-CoV-2 is positive. UA is positive with cloudy appearance, 2+ protein, trace lysed occult blood, 2+ leukocyte esterase 30-40 WBCs, and many bacteria. Urine culture is pending. Chest x-rays obtained showing a parenchymal density within the right upper chest as in interval change from prior study. Uncertain if this represents treated lung cancer or metastatic disease or represents an area of pneumonia. Several nodular densities within the right chest arise in the possibility of metastatic disease are also noted. Other findings which are stable are also observed. As the patient was not requiring oxygen but was displaying Covid symptoms decision was made to offer the patient Regeneron and she agreed. She was given 40 mg IV push Lasix as well. She carries a history of HLD, hypertension, atrial pacemaker, right-sided lung cancer in the past which was treated and now left lower lobe lung cancer, chronic renal insufficiency, contrast dye-induced neuropathy, arthritis, chronic back pain, fibromyalgia, type II DM which is diet controlled, hypothyroidism, vitamin D deficiency, goiter, thyroid nodule. She has a history of MRSA. She was never a smoker. Her primary care provider is Dr. Perkins. Her oncologist is Dr. Cortes - Related Data Allergies/Adverse Reactions: Allergies Allergy/AdvReac Type Severity Reaction Status Date / Time codeine Allergy Swollen Verified 09/24/20 15:04 Tongue duloxetine [From Cymbalta] Allergy Difficulty Verified 09/24/20 15:04 Breathing fentanyl Allergy Chest Pain Verified 09/24/20 15:04 hydrocodone Allergy Swollen Verified 09/24/20 15:04 Tongue hydromorphone [From Dilaudid] Allergy Chills Verified 09/24/20 15:04 sulfamethoxazole Allergy Swelling Verified 09/24/20 15:04 [From Bactrim] trimethoprim [From Bactrim] Allergy Swelling Verified 09/24/20 15:04 Home Medications: Home Meds Levothyroxine 75 mcg PO DAILY 12/10/15 [History] Lisinopril 40 mg PO DAILY 12/10/15 [History] Furosemide [Lasix] 20 mg PO DAILY #30 tablet 03/17/16 [Rx] Latanoprost 1 drop EYEBOTH BEDTIME 10/20/16 [History] Lidocaine/Prilocaine [EMLA Crm] 1 gm TOP Q6H PRN #1 tube 11/25/16 [Rx] Prochlorperazine [Compazine] 10 mg PO QID PRN 05/03/17 [History] Psyllium Husk [Metamucil] 1 tsp PO BID 07/30/17 [History] Aspirin 81 mg PO DAILY 03/17/18 [History] traMADol [Ultram] 50 mg PO Q6H PRN 03/17/18 [History] Acetaminophen [Tylenol] 650 mg PO Q6H PRN 12/30/18 [History] Cholecalciferol (Vitamin D3) [Vitamin D3] 2,000 units PO DAILY 12/30/18 [History] Ketoconazole [Ketoconazole 2%] 1 applic TOP BID 12/30/18 [History] Metoprolol Succinate [Toprol Xl] 200 mg PO DAILY 12/30/18 [History] Nitroglycerin [Nitrostat] 0.4 mg PO ASDIRECTED PRN 09/24/20 [History] [place]-3/DHA/Epa/Fish Oil [[place] 3 500 Softgel] 1,000 mg PO DAILY 09/24/20 [History] Ondansetron [Zofran] 4 mg PO Q6H PRN 09/24/20 [History] amLODIPine [Norvasc] 5 mg PO DAILY 09/24/20 [History] atorvaSTATin [Lipitor] 40 mg PO BEDTIME 09/24/20 [History] Past Medical History HEENT History: Reports: Glaucoma, Impaired Vision Other HEENT History: Wears glasses Cardiovascular History: Reports: High Cholesterol, Hypertension, Pacemaker (Left upper anterior chest. Her rate is atrial paced rhythm at 60/min) Other Cardiovascular History: chest pain/pressure, edema Respiratory History: Reports: SOB Other Respiratory History: Lung Cancer, Pulmonary nodule, Dyspnea on exertion. Patient reports right lower lobe lobectomy she believes 2 years ago. Followed with postoperative radiation to the right lung field. Currently has left lower lobe lung cancer with recent CT done showing increased nodularity. She is supposed to be booked for a PET scan in the near future to see if she is a candidate for any form of chemotherapy. Genitourinary History: Reports: Chronic Renal Insuffiency Other Genitourinary History: Contrast dye induced nephropathy, Microalbuminuria CLIENT ADMINISTRATOR History: Reports: Musculoskeletal History: Reports: Arthritis, Back Pain, Chronic, Fibromyalgia, Osteoarthritis, Osteoporosis Endocrine/Metabolic History: Reports: Diabetes, Type II, Hypothyroidism, Vitamin D Deficiency Other Endocrine/Metabolic History: DM II (diet controlled), goiter, thyroid nodule Hematologic History: Reports: Blood Transfusion(s) Oncologic (Cancer) History: Reports: Lung - Infectious Disease History Infectious Disease History: Reports: Chicken Pox, MRSA, Novel Coronavirus, Shingles - Past Surgical History HEENT Surgical History: Reports: Cataract Surgery Cardiovascular Surgical History: Reports: Pacer Respiratory Surgical History: Reports: Thoracotomy Other Respiratory Surgeries/Procedures: Bronchoscopy,Thoracotomy with RLL lobectomy GI Surgical History: Reports: Appendectomy, Colonoscopy Female Surgical History: Reports: Hysterectomy, Salpingo-Oophorectomy Endocrine Surgical History: Reports: Thyroidectomy Musculoskeletal Surgical History: Reports: Hip Replacement Other Musculoskeletal Surgeries/Procedures:: Left total hip replacement Oncologic Surgical History: Reports: Lobectomy, Other (See Below) Other Oncologic Surgeries/Procedures: lymph node biopsy Social & Family History - Family History Family Medical History: No Pertinent Family History - Tobacco Use Tobacco Use Status *Q: Never Tobacco User Second Hand Smoke Exposure: No - Caffeine Use Caffeine Use: Reports: None - Recreational Drug Use Recreational Drug Use: No - Living Situation & Occupation Living situation: Reports: , with Spouse Occupation: Retired H&P Review of Systems - Review of Systems: Review Of Systems: See Below General: Reports: Fever, Chills, Malaise, Weakness, Fatigue, Decreased Appetite, Weight Loss HEENT: Reports: No Symptoms. Denies: Headaches, Sore Throat Pulmonary: Reports: Shortness of Breath, Cough. Denies: Wheezing, Pleuritic Chest Pain, Sputum Cardiovascular: Reports: Dyspnea on Exertion (acute on chronic ). Denies: Chest Pain, Palpitations Gastrointestinal: Reports: No Symptoms. Denies: Abdominal Pain, Constipation, Diarrhea, Nausea, Vomiting Genitourinary: Reports: Frequency, Incontinence. Denies: Pain Musculoskeletal: Reports: Back Pain, Muscle Pain (generalized myalgias ) Skin: Reports: No Symptoms Psychiatric: Reports: No Symptoms Neurological: Reports: Difficulty Walking, Weakness, Gait Disturbance. Denies: Dizziness, Headache, Numbness, Seizure, Syncope, Tingling Hematologic/Lymphatic: Reports: No Symptoms Immunologic: Reports: No Symptoms Exam - Exam Exam: See Below - Vital Signs Vital Signs: Last Vital Signs Temp 98.5 F 09/24/20 08:54 Pulse 72 09/24/20 08:54 Resp 18 09/24/20 08:54 BP 140/75 09/24/20 08:54 Pulse Ox 97 09/24/20 08:54 Weight: 180 lb - Exam Quality Assessment: DVT Prophylaxis. No: Supplemental Oxygen, Urinary Catheter General: Alert, Oriented, Cooperative. No: Mild Distress HEENT: Conjunctiva Clear, EACs Clear, Mucosa Moist & [place], Nares Patent, Posterior Pharynx Clear Neck: Supple, Trachea Midline Lungs: Clear to Auscultation, Normal Respiratory Effort, Other (Port in right upper chest, pacemaker in left chest ) Cardiovascular: Regular Rate, Regular Rhythm, Other (Pacemaker) GI/Abdominal Exam: Normal Bowel Sounds, Non-Tender, No Distention (Female) Exam: Deferred Rectal (Female) Exam: Deferred Back Exam: Normal Inspection, Decreased Range of Motion Extremities: Normal Inspection, Normal Range of Motion, Non-Tender, No Pedal Edema Skin: Warm, Dry, Intact Neurological: Cranial Nerves Intact (Grossly ) Neuro Extensive - Mental Status: Alert - Patient Data Lab Results Last 24 hrs: Laboratory Results - last 24 hr 09/24/20 09/24/20 09/24/20 Range/Units 09:05 09:05 09:05 WBC 4.88 (3.98-10.04) K/mm3 RBC 4.73 (3.98-5.22) M/mm3 Hgb 15.1 (11.2-15.7) gm/dl Hct 45.5 H (34.1-44.9) % MCV 96.2 H (79.4-94.8) fl MCH 31.9 (25.6-32.2) pg MCHC 33.2 (32.2-35.5) g/dl RDW Std Deviation 47.3 H (36.4-46.3) fL Plt Count 140 L (182-369) K/mm3 MPV 12.2 (9.4-12.3) fl Neut % (Auto) 68.4 (34.0-71.1) % Lymph % (Auto) 15.6 L (19.3-51.7) % [place] % (Auto) 15.8 H (4.7-12.5) % Eos % (Auto) 0 L (0.7-5.8) Baso % (Auto) 0.2 (0.1-1.2) % Neut # (Auto) 3.34 (1.56-6.13) K/mm3 Lymph # (Auto) 0.76 L (1.18-3.74) K/mm3 [place] # (Auto) 0.77 H (0.24-0.36) K/mm3 Eos # (Auto) 0.00 L (0.04-0.36) K/mm3 Baso # (Auto) 0.01 (0.01-0.08) K/mm3 Manual Slide Review Normal smear ESR (0-20) mm/hr PT 10.1 (9.7-12.0) SECONDS INR 0.94 APTT 25.4 (21.7-31.4) SECONDS D-Dimer, Quantitative (0.19-0.50) mg/L Sodium 137 (136-145) mEq/L Potassium 3.5 (3.5-5.1) mEq/L Chloride 101 (98-107) mEq/L Carbon Dioxide 26 (21-32) mEq/L Anion Gap 13.5 (5-15) BUN 24 H (7-18) mg/dL Creatinine 1.5 H (0.55-1.02) mg/dL Est Cr Clr Drug Dosing 24.11 mL/min Estimated GFR (MDRD) 33 (>60) mL/min BUN/Creatinine Ratio 16.0 (14-18) Glucose 150 H (83-115) mg/dL Lactic Acid (0.4-2.0) mmol/L Calcium 8.7 (8.5-10.1) mg/dL Magnesium 1.9 (1.8-2.4) mg/dl Ferritin (8-252) ng/ml Total Bilirubin 0.8 (0.2-1.0) mg/dL AST 107 H (15-37) U/L ALT 223 H (14-59) U/L Alkaline Phosphatase 60 (46-116) U/L Lactate Dehydrogenase 335 H (81-234) U/L CK-MB (CK-2) < 0.5 (0-3.6) ng/ml Troponin I 0.022 (0.00-0.056) ng/mL C-Reactive Protein 1.1 H* (<1.0) mg/dL NT-Pro-B Natriuret Pep (0-450) pg/mL Total Protein 7.4 (6.4-8.2) g/dl Albumin 3.2 L (3.4-5.0) g/dl Globulin 4.2 gm/dL Albumin/Globulin Ratio 0.8 L (1-2) SARS-CoV-2 RNA (CATIE) (NEGATIVE) 09/24/20 09/24/20 09/24/20 Range/Units 09:05 09:05 09:05 WBC (3.98-10.04) K/mm3 RBC (3.98-5.22) M/mm3 Hgb (11.2-15.7) gm/dl Hct (34.1-44.9) % MCV (79.4-94.8) fl MCH (25.6-32.2) pg MCHC (32.2-35.5) g/dl RDW Std Deviation (36.4-46.3) fL Plt Count (182-369) K/mm3 MPV (9.4-12.3) fl Neut % (Auto) (34.0-71.1) % Lymph % (Auto) (19.3-51.7) % [place] % (Auto) (4.7-12.5) % Eos % (Auto) (0.7-5.8) Baso % (Auto) (0.1-1.2) % Neut # (Auto) (1.56-6.13) K/mm3 Lymph # (Auto) (1.18-3.74) K/mm3 [place] # (Auto) (0.24-0.36) K/mm3 Eos # (Auto) (0.04-0.36) K/mm3 Baso # (Auto) (0.01-0.08) K/mm3 Manual Slide Review ESR 14 (0-20) mm/hr PT (9.7-12.0) SECONDS INR APTT (21.7-31.4) SECONDS D-Dimer, Quantitative 0.76 H (0.19-0.50) mg/L Sodium (136-145) mEq/L Potassium (3.5-5.1) mEq/L Chloride (98-107) mEq/L Carbon Dioxide (21-32) mEq/L Anion Gap (5-15) BUN (7-18) mg/dL Creatinine (0.55-1.02) mg/dL Est Cr Clr Drug Dosing mL/min Estimated GFR (MDRD) (>60) mL/min BUN/Creatinine Ratio (14-18) Glucose (83-115) mg/dL Lactic Acid (0.4-2.0) mmol/L Calcium (8.5-10.1) mg/dL Magnesium (1.8-2.4) mg/dl Ferritin 580 H (8-252) ng/ml Total Bilirubin (0.2-1.0) mg/dL AST (15-37) U/L ALT (14-59) U/L Alkaline Phosphatase (46-116) U/L Lactate Dehydrogenase (81-234) U/L CK-MB (CK-2) (0-3.6) ng/ml Troponin I (0.00-0.056) ng/mL C-Reactive Protein (<1.0) mg/dL NT-Pro-B Natriuret Pep (0-450) pg/mL Total Protein (6.4-8.2) g/dl Albumin (3.4-5.0) g/dl Globulin gm/dL Albumin/Globulin Ratio (1-2) SARS-CoV-2 RNA (CATIE) (NEGATIVE) 09/24/20 09/24/20 09/24/20 Range/Units 09:05 09:25 09:59 WBC (3.98-10.04) K/mm3 RBC (3.98-5.22) M/mm3 Hgb (11.2-15.7) gm/dl Hct (34.1-44.9) % MCV (79.4-94.8) fl MCH (25.6-32.2) pg MCHC (32.2-35.5) g/dl RDW Std Deviation (36.4-46.3) fL Plt Count (182-369) K/mm3 MPV (9.4-12.3) fl Neut % (Auto) (34.0-71.1) % Lymph % (Auto) (19.3-51.7) % [place] % (Auto) (4.7-12.5) % Eos % (Auto) (0.7-5.8) Baso % (Auto) (0.1-1.2) % Neut # (Auto) (1.56-6.13) K/mm3 Lymph # (Auto) (1.18-3.74) K/mm3 [place] # (Auto) (0.24-0.36) K/mm3 Eos # (Auto) (0.04-0.36) K/mm3 Baso # (Auto) (0.01-0.08) K/mm3 Manual Slide Review ESR (0-20) mm/hr PT (9.7-12.0) SECONDS INR APTT (21.7-31.4) SECONDS D-Dimer, Quantitative (0.19-0.50) mg/L Sodium (136-145) mEq/L Potassium (3.5-5.1) mEq/L Chloride (98-107) mEq/L Carbon Dioxide (21-32) mEq/L Anion Gap (5-15) BUN (7-18) mg/dL Creatinine (0.55-1.02) mg/dL Est Cr Clr Drug Dosing mL/min Estimated GFR (MDRD) (>60) mL/min BUN/Creatinine Ratio (14-18) Glucose (83-115) mg/dL Lactic Acid 1.2 (0.4-2.0) mmol/L Calcium (8.5-10.1) mg/dL Magnesium (1.8-2.4) mg/dl Ferritin (8-252) ng/ml Total Bilirubin (0.2-1.0) mg/dL AST (15-37) U/L ALT (14-59) U/L Alkaline Phosphatase (46-116) U/L Lactate Dehydrogenase (81-234) U/L CK-MB (CK-2) (0-3.6) ng/ml Troponin I (0.00-0.056) ng/mL C-Reactive Protein (<1.0) mg/dL NT-Pro-B Natriuret Pep 1077 H (0-450) pg/mL Total Protein (6.4-8.2) g/dl Albumin (3.4-5.0) g/dl Globulin gm/dL Albumin/Globulin Ratio (1-2) SARS-CoV-2 RNA (CATIE) Positive H (NEGATIVE) Result Diagrams: 09/24/20 09:05 09/24/20 09:05 Sepsis Event Note - Evaluation Sepsis Screening Result: No Definite Risk - Focused Exam Vital Signs: Vital Signs Temp Pulse Resp BP Pulse Ox 09/24/20 08:54 98.5 F 72 18 140/75 97 - Problem List (1) COVID-19 determined by clinical diagnostic criteria SNOMED Code(s): 790411181, 230665373 ICD Code: U07.1 - COVID-19 Status: Acute Priority: High Current Visit: Yes (2) Carcinoma, lung SNOMED Code(s): 350980960 ICD Code: C34.90 - MALIGNANT NEOPLASM OF UNSP PART OF UNSP BRONCHUS OR LUNG Status: Chronic Priority: High Current Visit: Yes Qualifiers: Laterality: left Qualified Code(s): C34.92 - Malignant neoplasm of unspecified part of left bronchus or lung (3) Chronic renal insufficiency, stage III (moderate) SNOMED Code(s): 507429741 ICD Code: N18.30 - CHRONIC KIDNEY DISEASE, STAGE 3 UNSPECIFIED Status: Acute Priority: High Current Visit: Yes Qualifiers: Chronic kidney disease stage 3 subtype: stage 3b (GFR 30-44) Qualified Code(s): N18.32 - Chronic kidney disease, stage 3b (4) Diabetes mellitus SNOMED Code(s): 48892928 ICD Code: E11.9 - TYPE 2 DIABETES MELLITUS WITHOUT COMPLICATIONS Status: Chronic Priority: Low Current Visit: No Qualifiers: Diabetes mellitus type: type 2 Diabetes mellitus long-term insulin use: without long-term use Diabetes mellitus complication status: with other specified complication Qualified Code(s): E11.69 - Type 2 diabetes mellitus with other specified complication (5) Fibromyalgia SNOMED Code(s): 227550407 ICD Code: M79.7 - FIBROMYALGIA Status: Chronic Priority: Low Current Visit: No (6) Gastroesophageal reflux disease SNOMED Code(s): 499005147 ICD Code: K21.9 - GASTRO-ESOPHAGEAL REFLUX DISEASE WITHOUT ESOPHAGITIS Status: Chronic Priority: Low Current Visit: No Qualifiers: Esophagitis presence: esophagitis presence not specified Qualified Code(s): K21.9 - Gastro-esophageal reflux disease without esophagitis (7) HLD (hyperlipidemia) SNOMED Code(s): 52151316 ICD Code: E78.5 - HYPERLIPIDEMIA, UNSPECIFIED Status: Chronic Priority: Low Current Visit: No Qualifiers: Hyperlipidemia type: unspecified Qualified Code(s): E78.5 - Hyperlipidemia, unspecified (8) History of cardiac pacemaker SNOMED Code(s): 385849320 ICD Code: Z95.0 - PRESENCE OF CARDIAC PACEMAKER Status: Chronic Priority: Low Current Visit: No (9) Hypertension SNOMED Code(s): 95147023 ICD Code: I10 - ESSENTIAL (PRIMARY) HYPERTENSION Status: Chronic Priority: Low Current Visit: No Qualifiers: Hypertension type: unspecified Qualified Code(s): I10 - Essential (primary) hypertension (10) Hypothyroidism SNOMED Code(s): 87454873 ICD Code: E03.9 - HYPOTHYROIDISM, UNSPECIFIED Status: Chronic Priority: Low Current Visit: No Qualifiers: Hypothyroidism type: unspecified Qualified Code(s): E03.9 - Hypothyroidism, unspecified (11) Failure to thrive SNOMED Code(s): 27168772 ICD Code: XYF0682 - Status: Acute Priority: High Current Visit: Yes Qualifiers: Failure to thrive age range: in adult Qualified Code(s): R62.7 - Adult failure to thrive (12) Generalized weakness SNOMED Code(s): 96029992 ICD Code: R53.1 - WEAKNESS Status: Acute Priority: High Current Visit: Yes (13) UTI (urinary tract infection) SNOMED Code(s): 73739246 ICD Code: N39.0 - URINARY TRACT INFECTION, SITE NOT SPECIFIED Status: Acute Priority: High Current Visit: Yes Qualifiers: Urinary tract infection type: acute cystitis Hematuria presence: without hematuria Qualified Code(s): N30.00 - Acute cystitis without hematuria (14) Pneumonia SNOMED Code(s): 266866484 ICD Code: J18.9 - PNEUMONIA, UNSPECIFIED ORGANISM Status: Acute Priority: High Current Visit: Yes Qualifiers: Pneumonia type: due to unspecified organism Laterality: right Lung location: upper lobe of lung Qualified Code(s): J18.9 - Pneumonia, unspecified organism Problem List Initiated/Reviewed/Updated: Yes Orders Last 24hrs: Active Orders 24 hr Category Date Time Status EKG Documentation Completion [RC] STAT Care 09/24/20 09:29 Active Vital Signs [RC] Q15M Care 09/24/20 11:35 Active URINALYSIS W/MICROSCOPIC [UA W/MICROSCOPIC] [URIN] Stat Lab 09/24/20 09:29 Ordered Casirivimab [Casirivimab (EUA)] 1,200 mg Med 09/24/20 12:30 Active Imdevimab [Imdevimab (EUA)] 1,200 mg Sodium Chloride 0.9% [Normal Saline] 230 ml IV ONETIME Famotidine [Pepcid] Med 09/24/20 11:35 Active 20 mg IVPUSH ONETIME PRN Sodium Chloride 0.9% [Saline Flush] Med 09/24/20 11:45 Active 30 ml FLUSH ASDIRECTED diphenhydrAMINE [Benadryl] Med 09/24/20 11:35 Active 50 mg IVPUSH ONETIME PRN methylPREDNISolone Sod Succ [Solu-MEDROL] Med 09/24/20 11:35 Active 125 mg IVPUSH ONETIME PRN Medication Orders Diphenhydramine HCl (Benadryl) 50 mg IVPUSH ONETIME PRN PRN Reason: hypersensitivity reaction Famotidine (Pepcid) 20 mg IVPUSH ONETIME PRN PRN Reason: hypersensitivity reaction Non-Formulary Medication 1,200 mg/ Non-Formulary Medication 1,200 mg/ Sodium Chloride 250 mls @ 250 mls/hr IV ONETIME ONE Stop: 09/24/20 13:29 Methylprednisolone Sodium Succinate (Solu-Medrol) 125 mg IVPUSH ONETIME PRN PRN Reason: hypersensitivity reaction Sodium Chloride (Saline Flush) 30 ml FLUSH ASDIRECTED [facility] Assessment/Plan Comment:: Assessment - Day of admission - 09/24/2020 * 85 yo female presents to ED via [facility] with concerns over COVID like symptoms * Reports fever, chills, loss of taste and smell, fatigue, nonproductive cough, myalgias and weakness * is also brought to ED with similar symptoms * Reports symptom onset as WednesdaySeptember 18 * Reports no solid intake for 4 days * History of lung cancer, hld, htn, pacemaker, fibromyalgia, Type II DM, hypothyroidism, vitamin D deficiency, thyroid nodule, MRSA * 12-lead EKG in ED shows atrial placed rhythm at 60 BPM with Q-waves in V1 and near Q-waves in V2-V3. * CXR shows parenchymal density within right upper chest. Treated lung cancer vs. metastatic disease vs PNA * Several nodular densities with in right chest also noted raising possibility of metastatic disease * Labs: * WBC 4.88 * Hgb 15.1 * Plt 140 * Neutrophils 68.4% * INR 0.94 * Sodium 137 * Potassium 3.5 * BUN 24 * Creatinine 1.5 * GFR 33 * Glucose 150 * Magnesium 1.9 * Bilirubin 0.8 * AST 107, ALT 223, Alk phos 60 * LDH 335 * CK-MB <0.5 * Troponin 0.022 * CRP 1.1 * Albumin 3.2 * D-Dimer 0.76 * Ferritin 580 * Lactic acid 1.2 * Pro-BNP 1077 * SARS-CoV-2 RNA positive * UA: Cloudy, 2+ protein, Trace-lysed occult blood, 2+ luke esterase, 40-50 WBC, Many bacteria * Given 40mg Lasix * Original plan was discharge home so patient given Regeneron in ED * Found to be very weak and decreasing saturations with UTI, will therefor be admitted to M/S/P inpatient. PLAN: COVID-19 determined by clinical diagnostic criteria Pneumonia Carcinoma, lung Failure to thrive Generalized weakness UTI (urinary tract infection) * Telemetry and continuous pulse oximeter * Start azithromycin day - 09/29 * Start rocephin - day 10/01 * Blood cultures * PRN albuterol * Await urine cultures * Monitor electrolytes * PT/OT * CM/SW * O2 as needed * RT consultation * Not requiring oxygen at this time - consider Dexamethasone if changes * IS/Acapella * Supplement zinc * Check vitamin D level * Check TSH * Airborne/Contact/Droplet precautions * Office Inspector consult Chronic renal insufficiency, stage III (moderate) Diabetes mellitus Fibromyalgia Gastroesophageal reflux disease HLD (hyperlipidemia) History of cardiac pacemaker Hypertension Hypothyroidism * Home medications as ordered * Check TSH as above * QID AC and Bedtime glucose checks * Low intensity sliding scale insulin * Check A1C * Monitor need for IV fluids Code status: DNR/DNI PCP: Dr. Andrews Oncologist: Dr. Cortes DVT prophylaxis: Lovenox Social: Patient lives at home with her who was also admitted to the hospital for COVID-19 Disposition: Admitted to M/S/P inpatient with telemetry for management of COVID-19 symptoms, probable PNA, UTI, and failure to thrive. Prognosis: Poor overall prognosis due to significant chronic conditions including lung cancer with probable metastatic disease. - Mortality Measure Prognosis:: Poor
[2020-09-24] MEDS ORDERED: Furosemide 40 MG/4 ML VIAL IVPUSH ONE (12:45)
[2020-09-24] MEDS ORDERED: Acetaminophen 325 MG Tab PO PRN (14:30)
[2020-09-24] MEDS ORDERED: Albuterol 6.7 GM Inhaler INH PRN (14:35)
[2020-09-24] MEDS ORDERED: traMADol 50 MG Tab PO PRN (14:38)
[2020-09-24] MEDS ORDERED: Lidocaine 4% Crm 5 Gm with Transparent Dressing Kit TOP PRN (14:54)
[2020-09-24 15:31] LABS: HEMOGLOBIN A1C 6.6 % (4.50-6.20)
[2020-09-24 15:32] LABS: VITAMIN D,25-HYDROXY 52.2 ng/ml (30.0-100.0)
[2020-09-24] MEDS: cefTRIAXone 2 GM in Sodium Chloride 0.9% 100 ML IV SCH (15:35)
[2020-09-24] MEDS: Azithromycin 250 MG Tab PO SCH (15:35)
[2020-09-24] MEDS: Ondansetron 4 MG/2 ML SDV IV PRN (17:38)
[2020-09-24] MEDS: Latanoprost 0.005% Ophth Soln 2.5 ML Bottle EYEBOTH SCH (20:48)
--- NOTE | 2020-09-25 07:10 | PCM.PN ---
<Mihir Amador - Last Filed: 09/25/20 11:41> - General Info Date of Service: 09/25/20 Functional Status: Reports: Pain Controlled, Tolerating Diet, Ambulating, Urinating, Incentive Spirometry, Other (Acapella ). Denies: New Symptoms - Review of Systems General: Reports: Weakness (improved ). Denies: Fever, Fatigue, Chills HEENT: Reports: No Symptoms. Denies: Headaches, Sore Throat Pulmonary: Reports: Shortness of Breath, Cough. Denies: Sputum, Wheezing Cardiovascular: Reports: Dyspnea on Exertion. Denies: Chest Pain, Palpitations Gastrointestinal: Reports: No Symptoms. Denies: Abdominal Pain, Constipation, Diarrhea, Nausea, Vomiting Genitourinary: Reports: No Symptoms. Denies: Pain Musculoskeletal: Reports: No Symptoms Skin: Reports: No Symptoms. Denies: Cyanosis Neurological: Reports: No Symptoms, Difficulty Walking, Weakness. Denies: Co nfusion, Numbness, Pre-Existing Deficit, Tingling, Gait Disturbance Psychiatric: Reports: No Symptoms - Patient Data Vitals - Most Recent: Last Vital Signs Temp 99.1 F 09/25/20 05:59 Pulse 59 L 09/25/20 05:59 Resp 16 09/25/20 05:59 BP 148/77 H 09/25/20 05:59 Pulse Ox 95 09/25/20 05:59 Weight - Most Recent: 76.702 kg I&O - Last 24 Hours: Intake & Output 09/24/20 09/25/20 09/25/20 22:59 06:59 14:59 Intake Total 0 800 Output Total 100 950 Balance -100 -150 Lab Results Last 24 Hours: Laboratory Results - last 24 hr 09/24/20 09/24/20 09/24/20 Range/Units 09:05 09:05 09:05 WBC 4.88 (3.98-10.04) K/mm3 RBC 4.73 (3.98-5.22) M/mm3 Hgb 15.1 (11.2-15.7) gm/dl Hct 45.5 H (34.1-44.9) % MCV 96.2 H (79.4-94.8) fl MCH 31.9 (25.6-32.2) pg MCHC 33.2 (32.2-35.5) g/dl RDW Std Deviation 47.3 H (36.4-46.3) fL Plt Count 140 L (182-369) K/mm3 MPV 12.2 (9.4-12.3) fl Neut % (Auto) 68.4 (34.0-71.1) % Lymph % (Auto) 15.6 L (19.3-51.7) % Peach % (Auto) 15.8 H (4.7-12.5) % Eos % (Auto) 0 L (0.7-5.8) Baso % (Auto) 0.2 (0.1-1.2) % Neut # (Auto) 3.34 (1.56-6.13) K/mm3 Lymph # (Auto) 0.76 L (1.18-3.74) K/mm3 Peach # (Auto) 0.77 H (0.24-0.36) K/mm3 Eos # (Auto) 0.00 L (0.04-0.36) K/mm3 Baso # (Auto) 0.01 (0.01-0.08) K/mm3 Manual Slide Review Normal smear ESR (0-20) mm/hr PT 10.1 (9.7-12.0) SECONDS INR 0.94 APTT 25.4 (21.7-31.4) SECONDS D-Dimer, Quantitative (0.19-0.50) mg/L Sodium 137 (136-145) mEq/L Potassium 3.5 (3.5-5.1) mEq/L Chloride 101 (98-107) mEq/L Carbon Dioxide 26 (21-32) mEq/L Anion Gap 13.5 (5-15) BUN 24 H (7-18) mg/dL Creatinine 1.5 H (0.55-1.02) mg/dL Est Cr Clr Drug Dosing 24.11 mL/min Estimated GFR (MDRD) 33 (>60) mL/min BUN/Creatinine Ratio 16.0 (14-18) Glucose 150 H (83-115) mg/dL POC Glucose (83-110) mg/dL Hemoglobin A1c (4.50-6.20) % Lactic Acid (0.4-2.0) mmol/L Calcium 8.7 (8.5-10.1) mg/dL Magnesium 1.9 (1.8-2.4) mg/dl Ferritin (8-252) ng/ml Total Bilirubin 0.8 (0.2-1.0) mg/dL AST 107 H (15-37) U/L ALT 223 H (14-59) U/L Alkaline Phosphatase 60 (46-116) U/L Lactate Dehydrogenase 335 H (81-234) U/L CK-MB (CK-2) < 0.5 (0-3.6) ng/ml Troponin I 0.022 (0.00-0.056) ng/mL C-Reactive Protein 1.1 H* (<1.0) mg/dL NT-Pro-B Natriuret Pep (0-450) pg/mL Total Protein 7.4 (6.4-8.2) g/dl Albumin 3.2 L (3.4-5.0) g/dl Globulin 4.2 gm/dL Albumin/Globulin Ratio 0.8 L (1-2) Vitamin D 25-Hydroxy (30.0-100.0) ng/ml TSH 3rd Generation (0.358-3.74) uIU/mL Urine Color (Yellow) Urine Appearance (Clear) Urine pH (5.0-8.0) Ur Specific [place] (1.005-1.030) Urine Protein (Negative) Urine Glucose (UA) (Negative) Urine Ketones (Negative) Urine Occult Blood (Negative) Urine Nitrite (Negative) Urine Bilirubin (Negative) Urine Urobilinogen (0.2-1.0) Ur Leukocyte Esterase (Negative) Urine RBC (0-5) /hpf Urine WBC (0-5) /hpf Ur Squamous Epith Cells (0-5) /hpf Urine Bacteria (FEW) /hpf Urine Mucus (FEW) /hpf SARS-CoV-2 RNA (CATIE) (NEGATIVE) 09/24/20 09/24/20 09/24/20 Range/Units 09:05 09:05 09:05 WBC (3.98-10.04) K/mm3 RBC (3.98-5.22) M/mm3 Hgb (11.2-15.7) gm/dl Hct (34.1-44.9) % MCV (79.4-94.8) fl MCH (25.6-32.2) pg MCHC (32.2-35.5) g/dl RDW Std Deviation (36.4-46.3) fL Plt Count (182-369) K/mm3 MPV (9.4-12.3) fl Neut % (Auto) (34.0-71.1) % Lymph % (Auto) (19.3-51.7) % Peach % (Auto) (4.7-12.5) % Eos % (Auto) (0.7-5.8) Baso % (Auto) (0.1-1.2) % Neut # (Auto) (1.56-6.13) K/mm3 Lymph # (Auto) (1.18-3.74) K/mm3 [place] # (Auto) (0.24-0.36) K/mm3 Eos # (Auto) (0.04-0.36) K/mm3 Baso # (Auto) (0.01-0.08) K/mm3 Manual Slide Review ESR 14 (0-20) mm/hr PT (9.7-12.0) SECONDS INR APTT (21.7-31.4) SECONDS D-Dimer, Quantitative 0.76 H (0.19-0.50) mg/L Sodium (136-145) mEq/L Potassium (3.5-5.1) mEq/L Chloride (98-107) mEq/L Carbon Dioxide (21-32) mEq/L Anion Gap (5-15) BUN (7-18) mg/dL Creatinine (0.55-1.02) mg/dL Est Cr Clr Drug Dosing mL/min Estimated GFR (MDRD) (>60) mL/min BUN/Creatinine Ratio (14-18) Glucose (83-115) mg/dL POC Glucose (83-110) mg/dL Hemoglobin A1c (4.50-6.20) % Lactic Acid (0.4-2.0) mmol/L Calcium (8.5-10.1) mg/dL Magnesium (1.8-2.4) mg/dl Ferritin 580 H (8-252) ng/ml Total Bilirubin (0.2-1.0) mg/dL AST (15-37) U/L ALT (14-59) U/L Alkaline Phosphatase (46-116) U/L Lactate Dehydrogenase (81-234) U/L CK-MB (CK-2) (0-3.6) ng/ml Troponin I (0.00-0.056) ng/mL C-Reactive Protein (<1.0) mg/dL NT-Pro-B Natriuret Pep (0-450) pg/mL Total Protein (6.4-8.2) g/dl Albumin (3.4-5.0) g/dl Globulin gm/dL Albumin/Globulin Ratio (1-2) Vitamin D 25-Hydroxy (30.0-100.0) ng/ml TSH 3rd Generation (0.358-3.74) uIU/mL Urine Color (Yellow) Urine Appearance (Clear) Urine pH (5.0-8.0) Ur Specific [place] (1.005-1.030) Urine Protein (Negative) Urine Glucose (UA) (Negative) Urine Ketones (Negative) Urine Occult Blood (Negative) Urine Nitrite (Negative) Urine Bilirubin (Negative) Urine Urobilinogen (0.2-1.0) Ur Leukocyte Esterase (Negative) Urine RBC (0-5) /hpf Urine WBC (0-5) /hpf Ur Squamous Epith Cells (0-5) /hpf Urine Bacteria (FEW) /hpf Urine Mucus (FEW) /hpf SARS-CoV-2 RNA (CATIE) (NEGATIVE) 09/24/20 09/24/20 09/24/20 Range/Units 09:05 09:05 09:05 WBC (3.98-10.04) K/mm3 RBC (3.98-5.22) M/mm3 Hgb (11.2-15.7) gm/dl Hct (34.1-44.9) % MCV (79.4-94.8) fl MCH (25.6-32.2) pg MCHC (32.2-35.5) g/dl RDW Std Deviation (36.4-46.3) fL Plt Count (182-369) K/mm3 MPV (9.4-12.3) fl Neut % (Auto) (34.0-71.1) % Lymph % (Auto) (19.3-51.7) % [place] % (Auto) (4.7-12.5) % Eos % (Auto) (0.7-5.8) Baso % (Auto) (0.1-1.2) % Neut # (Auto) (1.56-6.13) K/mm3 Lymph # (Auto) (1.18-3.74) K/mm3 [place] # (Auto) (0.24-0.36) K/mm3 Eos # (Auto) (0.04-0.36) K/mm3 Baso # (Auto) (0.01-0.08) K/mm3 Manual Slide Review ESR (0-20) mm/hr PT (9.7-12.0) SECONDS INR APTT (21.7-31.4) SECONDS D-Dimer, Quantitative (0.19-0.50) mg/L Sodium (136-145) mEq/L Potassium (3.5-5.1) mEq/L Chloride (98-107) mEq/L Carbon Dioxide (21-32) mEq/L Anion Gap (5-15) BUN (7-18) mg/dL Creatinine (0.55-1.02) mg/dL Est Cr Clr Drug Dosing mL/min Estimated GFR (MDRD) (>60) mL/min BUN/Creatinine Ratio (14-18) Glucose (83-115) mg/dL POC Glucose (83-110) mg/dL Hemoglobin A1c 6.60 H (4.50-6.20) % Lactic Acid (0.4-2.0) mmol/L Calcium (8.5-10.1) mg/dL Magnesium (1.8-2.4) mg/dl Ferritin (8-252) ng/ml Total Bilirubin (0.2-1.0) mg/dL AST (15-37) U/L ALT (14-59) U/L Alkaline Phosphatase (46-116) U/L Lactate Dehydrogenase (81-234) U/L CK-MB (CK-2) (0-3.6) ng/ml Troponin I (0.00-0.056) ng/mL C-Reactive Protein (<1.0) mg/dL NT-Pro-B Natriuret Pep 1077 H (0-450) pg/mL Total Protein (6.4-8.2) g/dl Albumin (3.4-5.0) g/dl Globulin gm/dL Albumin/Globulin Ratio (1-2) Vitamin D 25-Hydroxy 52.2 (30.0-100.0) ng/ml TSH 3rd Generation 3.678 (0.358-3.74) uIU/mL Urine Color (Yellow) Urine Appearance (Clear) Urine pH (5.0-8.0) Ur Specific [place] (1.005-1.030) Urine Protein (Negative) Urine Glucose (UA) (Negative) Urine Ketones (Negative) Urine Occult Blood (Negative) Urine Nitrite (Negative) Urine Bilirubin (Negative) Urine Urobilinogen (0.2-1.0) Ur Leukocyte Esterase (Negative) Urine RBC (0-5) /hpf Urine WBC (0-5) /hpf Ur Squamous Epith Cells (0-5) /hpf Urine Bacteria (FEW) /hpf Urine Mucus (FEW) /hpf SARS-CoV-2 RNA (CATIE) (NEGATIVE) 09/24/20 09/24/20 09/24/20 Range/Units 09:25 09:59 11:55 WBC (3.98-10.04) K/mm3 RBC (3.98-5.22) M/mm3 Hgb (11.2-15.7) gm/dl Hct (34.1-44.9) % MCV (79.4-94.8) fl MCH (25.6-32.2) pg MCHC (32.2-35.5) g/dl RDW Std Deviation (36.4-46.3) fL Plt Count (182-369) K/mm3 MPV (9.4-12.3) fl Neut % (Auto) (34.0-71.1) % Lymph % (Auto) (19.3-51.7) % [place] % (Auto) (4.7-12.5) % Eos % (Auto) (0.7-5.8) Baso % (Auto) (0.1-1.2) % Neut # (Auto) (1.56-6.13) K/mm3 Lymph # (Auto) (1.18-3.74) K/mm3 [place] # (Auto) (0.24-0.36) K/mm3 Eos # (Auto) (0.04-0.36) K/mm3 Baso # (Auto) (0.01-0.08) K/mm3 Manual Slide Review ESR (0-20) mm/hr PT (9.7-12.0) SECONDS INR APTT (21.7-31.4) SECONDS D-Dimer, Quantitative (0.19-0.50) mg/L Sodium (136-145) mEq/L Potassium (3.5-5.1) mEq/L Chloride (98-107) mEq/L Carbon Dioxide (21-32) mEq/L Anion Gap (5-15) BUN (7-18) mg/dL Creatinine (0.55-1.02) mg/dL Est Cr Clr Drug Dosing mL/min Estimated GFR (MDRD) (>60) mL/min BUN/Creatinine Ratio (14-18) Glucose (83-115) mg/dL POC Glucose (83-110) mg/dL Hemoglobin A1c (4.50-6.20) % Lactic Acid 1.2 (0.4-2.0) mmol/L Calcium (8.5-10.1) mg/dL Magnesium (1.8-2.4) mg/dl Ferritin (8-252) ng/ml Total Bilirubin (0.2-1.0) mg/dL AST (15-37) U/L ALT (14-59) U/L Alkaline Phosphatase (46-116) U/L Lactate Dehydrogenase (81-234) U/L CK-MB (CK-2) (0-3.6) ng/ml Troponin I (0.00-0.056) ng/mL C-Reactive Protein (<1.0) mg/dL NT-Pro-B Natriuret Pep (0-450) pg/mL Total Protein (6.4-8.2) g/dl Albumin (3.4-5.0) g/dl Globulin gm/dL Albumin/Globulin Ratio (1-2) Vitamin D 25-Hydroxy (30.0-100.0) ng/ml TSH 3rd Generation (0.358-3.74) uIU/mL Urine Color Yellow (Yellow) Urine Appearance Cloudy H (Clear) Urine pH 6.5 (5.0-8.0) Ur Specific [place] 1.020 (1.005-1.030) Urine Protein 2+ H (Negative) Urine Glucose (UA) Negative (Negative) Urine Ketones Negative (Negative) Urine Occult Blood Trace-lysed H (Negative) Urine Nitrite Negative (Negative) Urine Bilirubin Negative (Negative) Urine Urobilinogen 0.2 (0.2-1.0) Ur Leukocyte Esterase 2+ H (Negative) Urine RBC 0-5 (0-5) /hpf Urine WBC 30-40 H (0-5) /hpf Ur Squamous Epith Cells 0-5 (0-5) /hpf Urine Bacteria Many H (FEW) /hpf Urine Mucus Not seen (FEW) /hpf SARS-CoV-2 RNA (CATIE) Positive H (NEGATIVE) 09/24/20 09/24/20 09/25/20 Range/Units 17:39 20:49 05:20 WBC 5.13 (3.98-10.04) K/mm3 RBC 4.36 (3.98-5.22) M/mm3 Hgb 14.2 (11.2-15.7) gm/dl Hct 41.8 (34.1-44.9) % MCV 95.9 H (79.4-94.8) fl MCH 32.6 H (25.6-32.2) pg MCHC 34.0 (32.2-35.5) g/dl RDW Std Deviation 46.6 H (36.4-46.3) fL Plt Count 120 L (182-369) K/mm3 MPV 11.9 (9.4-12.3) fl Neut % (Auto) 67.2 (34.0-71.1) % Lymph % (Auto) 16.6 L (19.3-51.7) % [place] % (Auto) 15.8 H (4.7-12.5) % Eos % (Auto) 0 L (0.7-5.8) Baso % (Auto) 0.2 (0.1-1.2) % Neut # (Auto) 3.45 (1.56-6.13) K/mm3 Lymph # (Auto) 0.85 L (1.18-3.74) K/mm3 [place] # (Auto) 0.81 H (0.24-0.36) K/mm3 Eos # (Auto) 0.00 L (0.04-0.36) K/mm3 Baso # (Auto) 0.01 (0.01-0.08) K/mm3 Manual Slide Review Abnormal smear ESR (0-20) mm/hr PT (9.7-12.0) SECONDS INR APTT (21.7-31.4) SECONDS D-Dimer, Quantitative (0.19-0.50) mg/L Sodium (136-145) mEq/L Potassium (3.5-5.1) mEq/L Chloride (98-107) mEq/L Carbon Dioxide (21-32) mEq/L Anion Gap (5-15) BUN (7-18) mg/dL Creatinine (0.55-1.02) mg/dL Est Cr Clr Drug Dosing mL/min Estimated GFR (MDRD) (>60) mL/min BUN/Creatinine Ratio (14-18) Glucose (83-115) mg/dL POC Glucose 161 H 230 H (83-110) mg/dL Hemoglobin A1c (4.50-6.20) % Lactic Acid (0.4-2.0) mmol/L Calcium (8.5-10.1) mg/dL Magnesium (1.8-2.4) mg/dl Ferritin (8-252) ng/ml Total Bilirubin (0.2-1.0) mg/dL AST (15-37) U/L ALT (14-59) U/L Alkaline Phosphatase (46-116) U/L Lactate Dehydrogenase (81-234) U/L CK-MB (CK-2) (0-3.6) ng/ml Troponin I (0.00-0.056) ng/mL C-Reactive Protein (<1.0) mg/dL NT-Pro-B Natriuret Pep (0-450) pg/mL Total Protein (6.4-8.2) g/dl Albumin (3.4-5.0) g/dl Globulin gm/dL Albumin/Globulin Ratio (1-2) Vitamin D 25-Hydroxy (30.0-100.0) ng/ml TSH 3rd Generation (0.358-3.74) uIU/mL Urine Color (Yellow) Urine Appearance (Clear) Urine pH (5.0-8.0) Ur Specific [place] (1.005-1.030) Urine Protein (Negative) Urine Glucose (UA) (Negative) Urine Ketones (Negative) Urine Occult Blood (Negative) Urine Nitrite (Negative) Urine Bilirubin (Negative) Urine Urobilinogen (0.2-1.0) Ur Leukocyte Esterase (Negative) Urine RBC (0-5) /hpf Urine WBC (0-5) /hpf Ur Squamous Epith Cells (0-5) /hpf Urine Bacteria (FEW) /hpf Urine Mucus (FEW) /hpf SARS-CoV-2 RNA (CATIE) (NEGATIVE) 09/25/20 09/25/20 Range/Units 05:20 06:00 WBC (3.98-10.04) K/mm3 RBC (3.98-5.22) M/mm3 Hgb (11.2-15.7) gm/dl Hct (34.1-44.9) % MCV (79.4-94.8) fl MCH (25.6-32.2) pg MCHC (32.2-35.5) g/dl RDW Std Deviation (36.4-46.3) fL Plt Count (182-369) K/mm3 MPV (9.4-12.3) fl Neut % (Auto) (34.0-71.1) % Lymph % (Auto) (19.3-51.7) % [place] % (Auto) (4.7-12.5) % Eos % (Auto) (0.7-5.8) Baso % (Auto) (0.1-1.2) % Neut # (Auto) (1.56-6.13) K/mm3 Lymph # (Auto) (1.18-3.74) K/mm3 [place] # (Auto) (0.24-0.36) K/mm3 Eos # (Auto) (0.04-0.36) K/mm3 Baso # (Auto) (0.01-0.08) K/mm3 Manual Slide Review ESR (0-20) mm/hr PT (9.7-12.0) SECONDS INR APTT (21.7-31.4) SECONDS D-Dimer, Quantitative (0.19-0.50) mg/L Sodium 137 (136-145) mEq/L Potassium 3.2 L (3.5-5.1) mEq/L Chloride 100 (98-107) mEq/L Carbon Dioxide 25 (21-32) mEq/L Anion Gap 15.2 H (5-15) BUN 25 H (7-18) mg/dL Creatinine 1.4 H (0.55-1.02) mg/dL Est Cr Clr Drug Dosing 25.83 mL/min Estimated GFR (MDRD) 36 (>60) mL/min BUN/Creatinine Ratio 17.9 (14-18) Glucose 130 H (83-115) mg/dL POC Glucose 119 H (83-110) mg/dL Hemoglobin A1c (4.50-6.20) % Lactic Acid (0.4-2.0) mmol/L Calcium 8.1 L (8.5-10.1) mg/dL Magnesium 1.8 (1.8-2.4) mg/dl Ferritin (8-252) ng/ml Total Bilirubin (0.2-1.0) mg/dL AST (15-37) U/L ALT (14-59) U/L Alkaline Phosphatase (46-116) U/L Lactate Dehydrogenase (81-234) U/L CK-MB (CK-2) (0-3.6) ng/ml Troponin I (0.00-0.056) ng/mL C-Reactive Protein 2.1 H* (<1.0) mg/dL NT-Pro-B Natriuret Pep (0-450) pg/mL Total Protein (6.4-8.2) g/dl Albumin (3.4-5.0) g/dl Globulin gm/dL Albumin/Globulin Ratio (1-2) Vitamin D 25-Hydroxy (30.0-100.0) ng/ml TSH 3rd Generation (0.358-3.74) uIU/mL Urine Color (Yellow) Urine Appearance (Clear) Urine pH (5.0-8.0) Ur Specific [place] (1.005-1.030) Urine Protein (Negative) Urine Glucose (UA) (Negative) Urine Ketones (Negative) Urine Occult Blood (Negative) Urine Nitrite (Negative) Urine Bilirubin (Negative) Urine Urobilinogen (0.2-1.0) Ur Leukocyte Esterase (Negative) Urine RBC (0-5) /hpf Urine WBC (0-5) /hpf Ur Squamous Epith Cells (0-5) /hpf Urine Bacteria (FEW) /hpf Urine Mucus (FEW) /hpf SARS-CoV-2 RNA (CATIE) (NEGATIVE) Tod Results Last 24 Hours: Microbiology 09/24/20 11:55 Urine Culture - Preliminary Urine, Bladder Gram Negative Rods 09/24/20 15:46 Anaerobic Blood Culture - Final Blood - Venous - Lab Draw Med Orders - Current: Current Medications Acetaminophen (Tylenol) 650 mg PO Q4H PRN PRN Reason: Pain (Mild 1-3)/fever Albuterol (Proventil Hfa) 0 gm INH Q4H PRN PRN Reason: SOB/Wheezing Amlodipine Besylate (Norvasc) 5 mg PO DAILY [facility] Aspirin (Aspirin) 81 mg PO DAILY [facility] Azithromycin (Zithromax) 500 mg PO Q24H [facility] Stop: 09/26/20 16:01 Last Admin: 09/24/20 15:35 Dose: 500 mg Documented by: Cholecalciferol (Vitamin D3) 50 mcg PO DAILY [facility] Diphenhydramine HCl (Benadryl) 50 mg IVPUSH ONETIME PRN PRN Reason: hypersensitivity reaction Enoxaparin Sodium (Lovenox) 40 mg SUBCUT DAILY [facility] Famotidine (Pepcid) 20 mg IVPUSH ONETIME PRN PRN Reason: hypersensitivity reaction Furosemide (Lasix) 20 mg PO DAILY [facility] Ceftriaxone Sodium 2 gm/ (Sodium Chloride) 100 mls @ 200 mls/hr IV Q24H [facility] Stop: 09/28/20 16:29 Last Admin: 09/24/20 15:35 Dose: 200 mls/hr Documented by: Insulin Human Lispro (Humalog) 0 unit SUBCUT QIDACANDBED [facility]; Protocol Last Admin: 09/24/20 20:59 Dose: 2 units Documented by: Latanoprost (Xalatan 0.005% Ophth Soln) 0 ml EYEBOTH BEDTIME [facility] Last Admin: 09/24/20 20:48 Dose: 1 drop Documented by: Levothyroxine Sodium (Levothyroxine) 75 mcg PO ACBRK [facility] Lidocaine HCl (Lmx 4 Cream With Tegaderm) 1 each TOP Q6H PRN PRN Reason: Prior to accessing port Lisinopril (Prinivil) 40 mg PO DAILY [facility] Methylprednisolone Sodium Succinate (Solu-Medrol) 125 mg IVPUSH ONETIME PRN PRN Reason: hypersensitivity reaction Metoprolol Succinate (Toprol Xl) 200 mg PO DAILY [facility] Ondansetron HCl (Zofran) 4 mg IV Q6H PRN PRN Reason: Nausea/Vomiting Last Admin: 09/24/20 17:38 Dose: 4 mg Documented by: Potassium Chloride (Klor-Con M20) 40 meq PO BID [facility] Stop: 09/25/20 21:01 Sodium Chloride (Saline Flush) 30 ml FLUSH ASDIRECTED [facility] Last Admin: 09/24/20 13:45 Dose: 30 ml Documented by: Tramadol HCl (Ultram) 50 mg PO Q6H PRN PRN Reason: Pain Discontinued Medications Epinephrine HCl (Adrenalin) 0.3 mg IM ONETIME ONE Stop: 09/24/20 11:36 Last Admin: 09/24/20 15:18 Dose: Not Given Documented by: Furosemide (Lasix) 40 mg IVPUSH NOW ONE Stop: 09/24/20 12:46 Last Admin: 09/24/20 13:50 Dose: 40 mg Documented by: Dextrose/Sodium Chloride (Dextrose 5%-Normal Saline) 1,000 mls @ 150 mls/hr IV ASDIRECTED [facility] Last Admin: 09/24/20 10:02 Dose: 150 mls/hr Documented by: Non-Formulary Medication 1,200 mg/ Non-Formulary Medication 1,200 mg/ Sodium Chloride 250 mls @ 250 mls/hr IV ONETIME ONE Stop: 09/24/20 12:34 Last Admin: 09/24/20 15:19 Dose: Not Given Documented by: Non-Formulary Medication 1,200 mg/ Non-Formulary Medication 1,200 mg/ Sodium Chloride 250 mls @ 250 mls/hr IV ONETIME ONE Stop: 09/24/20 13:29 Last Admin: 09/24/20 12:25 Dose: 250 mls/hr Documented by: - Exam Quality Assessment: DVT Prophylaxis. No: Supplemental Oxygen General: Alert, Oriented, Cooperative, No Acute Distress HEENT: Pupils Equal, Pupils Reactive, Mucous Membr. Moist/[place] Neck: Supple, Trachea Midline Lungs: Clear to Auscultation, Normal Respiratory Effort, Decreased Breath Sounds Cardiovascular: Regular Rate, Regular Rhythm, Other (Pacemaker ) GI/Abdominal Exam: Normal Bowel Sounds, Soft, Non-Tender, No Distention (Female) Exam: Deferred Back Exam: Normal Inspection, Full Range of Motion Extremities: Normal Inspection, Normal Range of Motion, Non-Tender, No Pedal Edema, Normal Capillary Refill Skin: Warm, Dry, Intact Neurological: No New Focal Deficit Psy/Mental Status: Alert Sepsis Event Note - Evaluation Sepsis Screening Result: No Definite Risk - Focused Exam Vital Signs: Vital Signs Temp Pulse Resp BP Pulse Ox 09/25/20 05:59 99.1 F 59 L 16 148/77 H 95 09/25/20 01:10 99.0 F 68 16 111/39 L 09/24/20 20:47 98.8 F 67 14 125/48 L 09/24/20 20:00 98 - Problem List & Annotations (1) COVID-19 determined by clinical diagnostic criteria SNOMED Code(s): 198368586, 520371488 Code(s): U07.1 - COVID-19 Status: Acute Priority: High Current Visit: Yes (2) Carcinoma, lung SNOMED Code(s): 538620665 Code(s): C34.90 - MALIGNANT NEOPLASM OF UNSP PART OF UNSP BRONCHUS OR LUNG Status: Chronic Priority: High Current Visit: Yes Qualifiers: Laterality: left Qualified Code(s): C34.92 - Malignant neoplasm of unspecified part of left bronchus or lung (3) Chronic renal insufficiency, stage III (moderate) SNOMED Code(s): 669914197 Code(s): N18.30 - CHRONIC KIDNEY DISEASE, STAGE 3 UNSPECIFIED Status: Acute Priority: High Current Visit: Yes Qualifiers: Chronic kidney disease stage 3 subtype: stage 3b (GFR 30-44) Qualified Code(s): N18.32 - Chronic kidney disease, stage 3b (4) Diabetes mellitus SNOMED Code(s): 00418415 Code(s): E11.9 - TYPE 2 DIABETES MELLITUS WITHOUT COMPLICATIONS Status: Chronic Priority: Low Current Visit: No Qualifiers: Diabetes mellitus type: type 2 Diabetes mellitus fdc insulin use: without fdc use Diabetes mellitus complication status: with other specified complication Qualified Code(s): E11.69 - Type 2 diabetes mellitus with other specified complication (5) Fibromyalgia SNOMED Code(s): 186563457 Code(s): M79.7 - FIBROMYALGIA Status: Chronic Priority: Low Current Visit: No (6) Gastroesophageal reflux disease SNOMED Code(s): 938728768 Code(s): K21.9 - GASTRO-ESOPHAGEAL REFLUX DISEASE WITHOUT ESOPHAGITIS Status: Chronic Priority: Low Current Visit: No Qualifiers: Esophagitis presence: esophagitis presence not specified Qualified Code(s): K21.9 - Gastro-esophageal reflux disease without esophagitis (7) HLD (hyperlipidemia) SNOMED Code(s): 49264633 Code(s): E78.5 - HYPERLIPIDEMIA, UNSPECIFIED Status: Chronic Priority: Low Current Visit: No Qualifiers: Hyperlipidemia type: unspecified Qualified Code(s): E78.5 - Hyperlipidemia, unspecified (8) History of cardiac pacemaker SNOMED Code(s): 030517111 Code(s): Z95.0 - PRESENCE OF CARDIAC PACEMAKER Status: Chronic Priority: Low Current Visit: No (9) Hypertension SNOMED Code(s): 25586387 Code(s): I10 - ESSENTIAL (PRIMARY) HYPERTENSION Status: Chronic Priority: Low Current Visit: No Qualifiers: Hypertension type: unspecified Qualified Code(s): I10 - Essential (primary) hypertension (10) Hypothyroidism SNOMED Code(s): 02091545 Code(s): E03.9 - HYPOTHYROIDISM, UNSPECIFIED Status: Chronic Priority: Low Current Visit: No Qualifiers: Hypothyroidism type: unspecified Qualified Code(s): E03.9 - Hypothyroidism, unspecified (11) Failure to thrive SNOMED Code(s): 33554491 Code(s): LEM7300 - Status: Acute Priority: High Current Visit: Yes Qualifiers: Failure to thrive age range: in adult Qualified Code(s): R62.7 - Adult fa ilure to thrive (12) Generalized weakness SNOMED Code(s): 54512668 Code(s): R53.1 - WEAKNESS Status: Acute Priority: High Current Visit: Yes (13) UTI (urinary tract infection) SNOMED Code(s): 87007824 Code(s): N39.0 - URINARY TRACT INFECTION, SITE NOT SPECIFIED Status: Acute Priority: High Current Visit: Yes Qualifiers: Urinary tract infection type: acute cystitis Hematuria presence: without hematuria Qualified Code(s): N30.00 - Acute cystitis without hematuria (14) Pneumonia SNOMED Code(s): 196204909 Code(s): J18.9 - PNEUMONIA, UNSPECIFIED ORGANISM Status: Acute Priority: High Current Visit: Yes Qualifiers: Pneumonia type: due to unspecified organism Laterality: right Lung location: upper lobe of lung Qualified Code(s): J18.9 - Pneumonia, unspecified organism (15) Hypokalemia SNOMED Code(s): 58489993 Code(s): E87.6 - HYPOKALEMIA Status: Acute Priority: High Current Visit: Yes (16) Hypomagnesemia SNOMED Code(s): 942525345 Code(s): E83.42 - HYPOMAGNESEMIA Status: Acute Priority: High Current Visit: Yes - Problem List Review Problem List Initiated/Reviewed/Updated: Yes - My Orders Last 24 Hours: My Active Orders 09/24/20 14:30 Height and Weight [RC] 06 Intake and Output [RC] 04,16 Oxygen Therapy [RC] PRN Up With Assistance [RC] BID VTE/DVT Education [RC] DAILY Vital Signs [RC] Q4HR Consult to Case Management/Certified Substance Abuse Counselor [CONS] Routine Consult to Spiritual Care [CONS] Routine OT Evaluation and Treatment [CONS] Routine PT Evaluation and Treatment [CONS] Routine Respiratory Care Assess and Treatment [CONS] Routine Acetaminophen [TylenoL] 650 mg PO Q4H PRN Ondansetron [Zofran] 4 mg IV Q6H PRN 09/24/20 14:31 Pulse Oximetry [RC] PRN 09/24/20 14:35 Albuterol [Proventil HFA] See Dose Instructions INH Q4H PRN 09/24/20 14:36 RT Post Treatment Assessment [RC] Click to Edit RT Pre-Treatment Assessment [RC] Click to Edit 09/24/20 14:38 traMADol [Ultram] 50 mg PO Q6H PRN 09/24/20 14:40 Isolation [COMM] Routine 09/24/20 14:54 Lidocaine 4% [LMX 4 Cream with Tegaderm] 1 each TOP Q6H PRN 09/24/20 15:04 Patient Status [ADT] Routine 09/24/20 15:05 Pulse Oximetry Continuous Monitoring [OM.PC] Routine 09/24/20 15:18 Blood Culture x2 Reflex Set [OM.PC] Stat 09/24/20 15:37 CULTURE BLOOD [BC] Stat 09/24/20 15:46 CULTURE BLOOD [BC] Stat 09/24/20 15:50 Accu Check [Blood Glucose Check, Bedside] [RC] QIDACANDBED 09/24/20 15:56 Consult to Corporate Travel Expert [CONS] Routine 09/24/20 16:00 Azithromycin [Zithromax] 500 mg PO Q24H cefTRIAXone [Rocephin] 2 gm Sodium Chloride 0.9% [Normal Saline] 100 ml IV Q24H 09/24/20 16:14 Acapella [RT Chest Physiotherapy] [RC] ASDIRECTED RT Incentive Spirometry [RC] ASDIRECTED 09/24/20 Dinner Consistent Carbohydrate Diet [DIET] Insulin Lispro [HumaLOG] See Protocol SUBCUT QIDACANDBED 09/24/20 21:00 Latanoprost [Xalatan 0.005% Ophth Soln] 0 ml EYEBOTH BEDTIME 09/25/20 09:00 Aspirin 81 mg PO DAILY Cholecalciferol (Vitamin D3) [Vitamin D3] 50 mcg PO DAILY Enoxaparin [Lovenox] 40 mg SUBCUT DAILY Furosemide [Lasix] 20 mg PO DAILY Metoprolol Succinate [Toprol XL] 200 mg PO DAILY Potassium Chloride [Klor-Con M20] 40 meq PO BID amLODIPine [Norvasc] 5 mg PO DAILY lisinopriL [Prinivil] 40 mg PO DAILY 09/26/20 05:11 BASIC METABOLIC PANEL,BMP [CHEM] AM CBC WITH AUTO DIFF [HEME] AM CRP [C-REACTIVE PROTEIN] [CHEM] AM MAGNESIUM [CHEM] AM 09/26/20 14:42 DD [D-DIMER QUANTITATIVE] [COAG] Q48H 09/27/20 05:11 BASIC METABOLIC PANEL,BMP [CHEM] AM CBC WITH AUTO DIFF [HEME] AM CRP [C-REACTIVE PROTEIN] [CHEM] AM MAGNESIUM [CHEM] AM 09/28/20 05:11 BASIC METABOLIC PANEL,BMP [CHEM] AM CBC WITH AUTO DIFF [HEME] AM CRP [C-REACTIVE PROTEIN] [CHEM] AM MAGNESIUM [CHEM] AM 09/28/20 14:42 DD [D-DIMER QUANTITATIVE] [COAG] Q48H - Assessment Assessment:: Assessment - Day of admission - 09/24/2020 * 85 yo female presents to ED via [facility] with concerns over COVID like symptoms * Reports fever, chills, loss of taste and smell, fatigue, nonproductive cough, myalgias and weakness * is also brought to ED with similar symptoms * Reports symptom onset as WednesdaySeptember 18 * Reports no solid intake for 4 days * History of lung cancer, hld, htn, pacemaker, fibromyalgia, Type II DM, hypothyroidism, vitamin D deficiency, thyroid nodule, MRSA * 12-lead EKG in ED shows atrial placed rhythm at 60 BPM with Q-waves in V1 and near Q-waves in V2-V3. * CXR shows parenchymal density within right upper chest. Treated lung cancer vs. metastatic disease vs PNA * Several nodular densities with in right chest also noted raising possibility of metastatic disease * Labs: * WBC 4.88 * Hgb 15.1 * Plt 140 * Neutrophils 68.4% * INR 0.94 * Sodium 137 * Potassium 3.5 * BUN 24 * Creatinine 1.5 * GFR 33 * Glucose 150 * Magnesium 1.9 * Bilirubin 0.8 * AST 107, ALT 223, Alk phos 60 * LDH 335 * CK-MB <0.5 * Troponin 0.022 * CRP 1.1 * Albumin 3.2 * D-Dimer 0.76 * Ferritin 580 * Lactic acid 1.2 * Pro-BNP 1077 * SARS-CoV-2 RNA positive * UA: Cloudy, 2+ protein, Trace-lysed occult blood, 2+ luke esterase, 40-50 WBC, Many bacteria * Given 40mg Lasix * Original plan was discharge home so patient given Regeneron in ED * Found to be very weak and decreasing saturations with UTI, will therefor be admitted to M/S/P inpatient. 09/25/2020 * Reports she feels much better today * Working with PT/OT * Required 1-2L of oxygen overnight but weaned today * Labs: * WBC 5.31 * Platelet 120 * Potassium 3.2 * BUN 25 * Creatinine 1.4 * GFR 36 * CRP 2.1 * A1c 6.6 * Vitamin D 52.2 * TSH 3.678 * UA growing gram negative rods * Blood cultures negative thus far * Continue Rocephin and azithromycin * Supplemented magnesium and potassium * Await urine culture * SW working on placement. - Plan Plan:: COVID-19 determined by clinical diagnostic criteria Pneumonia Carcinoma, lung Failure to thrive Generalized weakness UTI (urinary tract infection) * Telemetry and continuous pulse oximeter * Continue azithromycin day - 2/3 * Continue rocephin - day 2/5 * Blood cultures * PRN albuterol * Await urine cultures - gram negative rods thus far * Monitor electrolytes * PT/OT * CM/SW * O2 as needed * RT consultation * Not requiring oxygen at this time - consider Dexamethasone if changes * IS/Acapella * Supplement zinc * Airborne/Contact/Droplet precautions * Corporate Travel Expert consult Hypokalemia Hypomagnesemia * Supplemented Chronic renal insufficiency, stage III (moderate) Diabetes mellitus Fibromyalgia Gastroesophageal reflux disease HLD (hyperlipidemia) History of cardiac pacemaker Hypertension Hypothyroidism * Home medications as ordered * QID AC and Bedtime glucose checks * Low intensity sliding scale insulin * Monitor need for IV fluids Code status: DNR/DNI PCP: Dr. Andrews Oncologist: Dr. Cortes DVT prophylaxis: Lovenox Social: Patient lives at home with her who was also admitted to the hospital for COVID-19 Disposition: Admitted to M/S/P inpatient with telemetry for management of COVID- 19 symptoms, probable PNA, UTI, and failure to thrive. Prognosis: Poor overall prognosis due to significant chronic conditions including lung cancer with probable metastatic disease. <Harley Mirza - Last Filed: 09/25/20 15:41> - Patient Data Vitals - Most Recent: Last Vital Signs Temp 36.2 C 09/25/20 11:52 Pulse 59 L 09/25/20 11:52 Resp 16 09/25/20 11:52 BP 125/59 L 09/25/20 11:52 Pulse Ox 94 L 09/25/20 11:52 I&O - Last 24 Hours: Intake & Output 09/25/20 09/25/20 09/25/20 06:59 14:59 22:59 Intake Total 800 240 200 Output Total 950 825 Balance -150 240 -625 Lab Results Last 24 Hours: Laboratory Results - last 24 hr 09/24/20 09/24/20 09/24/20 Range/Units 09:05 09:05 17:39 WBC (3.98-10.04) K/mm3 RBC (3.98-5.22) M/mm3 Hgb (11.2-15.7) gm/dl Hct (34.1-44.9) % MCV (79.4-94.8) fl MCH (25.6-32.2) pg MCHC (32.2-35.5) g/dl RDW Std Deviation (36.4-46.3) fL Plt Count (182-369) K/mm3 MPV (9.4-12.3) fl Neut % (Auto) (34.0-71.1) % Lymph % (Auto) (19.3-51.7) % Peach % (Auto) (4.7-12.5) % Eos % (Auto) (0.7-5.8) Baso % (Auto) (0.1-1.2) % Neut # (Auto) (1.56-6.13) K/mm3 Lymph # (Auto) (1.18-3.74) K/mm3 Peach # (Auto) (0.24-0.36) K/mm3 Eos # (Auto) (0.04-0.36) K/mm3 Baso # (Auto) (0.01-0.08) K/mm3 Manual Slide Review Sodium (136-145) mEq/L Potassium (3.5-5.1) mEq/L Chloride (98-107) mEq/L Carbon Dioxide (21-32) mEq/L Anion Gap (5-15) BUN (7-18) mg/dL Creatinine (0.55-1.02) mg/dL Est Cr Clr Drug Dosing mL/min Estimated GFR (MDRD) (>60) mL/min BUN/Creatinine Ratio (14-18) Glucose (83-115) mg/dL POC Glucose 161 H (83-110) mg/dL Hemoglobin A1c 6.60 H (4.50-6.20) % Calcium (8.5-10.1) mg/dL Magnesium (1.8-2.4) mg/dl C-Reactive Protein (<1.0) mg/dL Vitamin D 25-Hydroxy 52.2 (30.0-100.0) ng/ml TSH 3rd Generation 3.678 (0.358-3.74) uIU/mL 09/24/20 09/25/20 09/25/20 Range/Units 20:49 05:20 05:20 WBC 5.13 (3.98-10.04) K/mm3 RBC 4.36 (3.98-5.22) M/mm3 Hgb 14.2 (11.2-15.7) gm/dl Hct 41.8 (34.1-44.9) % MCV 95.9 H (79.4-94.8) fl MCH 32.6 H (25.6-32.2) pg MCHC 34.0 (32.2-35.5) g/dl RDW Std Deviation 46.6 H (36.4-46.3) fL Plt Count 120 L (182-369) K/mm3 MPV 11.9 (9.4-12.3) fl Neut % (Auto) 67.2 (34.0-71.1) % Lymph % (Auto) 16.6 L (19.3-51.7) % Peach % (Auto) 15.8 H (4.7-12.5) % Eos % (Auto) 0 L (0.7-5.8) Baso % (Auto) 0.2 (0.1-1.2) % Neut # (Auto) 3.45 (1.56-6.13) K/mm3 Lymph # (Auto) 0.85 L (1.18-3.74) K/mm3 Peach # (Auto) 0.81 H (0.24-0.36) K/mm3 Eos # (Auto) 0.00 L (0.04-0.36) K/mm3 Baso # (Auto) 0.01 (0.01-0.08) K/mm3 Manual Slide Review Abnormal smear Sodium 137 (136-145) mEq/L Potassium 3.2 L (3.5-5.1) mEq/L Chloride 100 (98-107) mEq/L Carbon Dioxide 25 (21-32) mEq/L Anion Gap 15.2 H (5-15) BUN 25 H (7-18) mg/dL Creatinine 1.4 H (0.55-1.02) mg/dL Est Cr Clr Drug Dosing 25.83 mL/min Estimated GFR (MDRD) 36 (>60) mL/min BUN/Creatinine Ratio 17.9 (14-18) Glucose 130 H (83-115) mg/dL POC Glucose 230 H (83-110) mg/dL Hemoglobin A1c (4.50-6.20) % Calcium 8.1 L (8.5-10.1) mg/dL Magnesium 1.8 (1.8-2.4) mg/dl C-Reactive Protein 2.1 H* (<1.0) mg/dL Vitamin D 25-Hydroxy (30.0-100.0) ng/ml TSH 3rd Generation (0.358-3.74) uIU/mL 09/25/20 Range/Units 06:00 WBC (3.98-10.04) K/mm3 RBC (3.98-5.22) M/mm3 Hgb (11.2-15.7) gm/dl Hct (34.1-44.9) % MCV (79.4-94.8) fl MCH (25.6-32.2) pg MCHC (32.2-35.5) g/dl RDW Std Deviation (36.4-46.3) fL Plt Count (182-369) K/mm3 MPV (9.4-12.3) fl Neut % (Auto) (34.0-71.1) % Lymph % (Auto) (19.3-51.7) % Peach % (Auto) (4.7-12.5) % Eos % (Auto) (0.7-5.8) Baso % (Auto) (0.1-1.2) % Neut # (Auto) (1.56-6.13) K/mm3 Lymph # (Auto) (1.18-3.74) K/mm3 Peach # (Auto) (0.24-0.36) K/mm3 Eos # (Auto) (0.04-0.36) K/mm3 Baso # (Auto) (0.01-0.08) K/mm3 Manual Slide Review Sodium (136-145) mEq/L Potassium (3.5-5.1) mEq/L Chloride (98-107) mEq/L Carbon Dioxide (21-32) mEq/L Anion Gap (5-15) BUN (7-18) mg/dL Creatinine (0.55-1.02) mg/dL Est Cr Clr Drug Dosing mL/min Estimated GFR (MDRD) (>60) mL/min BUN/Creatinine Ratio (14-18) Glucose (83-115) mg/dL POC Glucose 119 H (83-110) mg/dL Hemoglobin A1c (4.50-6.20) % Calcium (8.5-10.1) mg/dL Magnesium (1.8-2.4) mg/dl C-Reactive Protein (<1.0) mg/dL Vitamin D 25-Hydroxy (30.0-100.0) ng/ml TSH 3rd Generation (0.358-3.74) uIU/mL Tod Results Last 24 Hours: Microbiology 09/24/20 11:55 Urine Culture - Preliminary Urine, Bladder Gram Negative Rods 09/24/20 15:46 Anaerobic Blood Culture - Final Blood - Venous - Lab Draw Med Orders - Current: Current Medications Acetaminophen (Tylenol) 650 mg PO Q4H PRN PRN Reason: Pain (Mild 1-3)/fever Albuterol (Proventil Hfa) 0 gm INH Q4H PRN PRN Reason: SOB/Wheezing Amlodipine Besylate (Norvasc) 5 mg PO DAILY [facility] Last Admin: 09/25/20 09:29 Dose: 5 mg Documented by: Aspirin (Aspirin) 81 mg PO DAILY [facility] Last Admin: 09/25/20 09:28 Dose: 81 mg Documented by: Azithromycin (Zithromax) 500 mg PO Q24H [facility] Stop: 09/26/20 16:01 Last Admin: 09/25/20 15:20 Dose: 500 mg Documented by: Cholecalciferol (Vitamin D3) 50 mcg PO DAILY [facility] Last Admin: 09/25/20 09:29 Dose: 50 mcg Documented by: Diphenhydramine HCl (Benadryl) 50 mg IVPUSH ONETIME PRN PRN Reason: hypersensitivity reaction Enoxaparin Sodium (Lovenox) 30 mg SUBCUT DAILY [facility] Last Admin: 09/25/20 09:33 Dose: 30 mg Documented by: Famotidine (Pepcid) 20 mg IVPUSH ONETIME PRN PRN Reason: hypersensitivity reaction Furosemide (Lasix) 20 mg PO DAILY [facility] Last Admin: 09/25/20 09:28 Dose: 20 mg Documented by: Ceftriaxone Sodium 2 gm/ (Sodium Chloride) 100 mls @ 200 mls/hr IV Q24H [facility] Stop: 09/28/20 16:29 Last Admin: 09/25/20 15:19 Dose: 200 mls/hr Documented by: Insulin Human Lispro (Humalog) 0 unit SUBCUT QIDACANDBED [facility]; Protocol Last Admin: 09/25/20 11:30 Dose: 3 units Documented by: Latanoprost (Xalatan 0.005% Ophth Soln) 0 ml EYEBOTH BEDTIME [facility] Last Admin: 09/24/20 20:48 Dose: 1 drop Documented by: Levothyroxine Sodium (Levothyroxine) 75 mcg PO ACBRK [facility] Last Admin: 09/25/20 07:46 Dose: 75 mcg Documented by: Lidocaine HCl (Lmx 4 Cream With Tegaderm) 1 each TOP Q6H PRN PRN Reason: Prior to accessing port Lisinopril (Prinivil) 40 mg PO DAILY [facility] Last Admin: 09/25/20 09:29 Dose: 40 mg Documented by: Methylprednisolone Sodium Succinate (Solu-Medrol) 125 mg IVPUSH ONETIME PRN PRN Reason: hypersensitivity reaction Metoprolol Succinate (Toprol Xl) 200 mg PO DAILY [facility] Last Admin: 09/25/20 09:29 Dose: 200 mg Documented by: Ondansetron HCl (Zofran) 4 mg IV Q6H PRN PRN Reason: Nausea/Vomiting Last Admin: 09/24/20 17:38 Dose: 4 mg Documented by: Potassium Chloride (Klor-Con M20) 40 meq PO BID [facility] Stop: 09/25/20 21:01 Last Admin: 09/25/20 09:28 Dose: 40 meq Documented by: Sodium Chloride (Saline Flush) 30 ml FLUSH ASDIRECTED [facility] Last Admin: 09/24/20 13:45 Dose: 30 ml Documented by: Tramadol HCl (Ultram) 50 mg PO Q6H PRN PRN Reason: Pain Discontinued Medications Enoxaparin Sodium (Lovenox) 40 mg SUBCUT DAILY [facility] Epinephrine HCl (Adrenalin) 0.3 mg IM ONETIME ONE Stop: 09/24/20 11:36 Last Admin: 09/24/20 15:18 Dose: Not Given Documented by: Furosemide (Lasix) 40 mg IVPUSH NOW ONE Stop: 09/24/20 12:46 Last Admin: 09/24/20 13:50 Dose: 40 mg Documented by: Dextrose/Sodium Chloride (Dextrose 5%-Normal Saline) 1,000 mls @ 150 mls/hr IV ASDIRECTED [facility] Last Admin: 09/24/20 10:02 Dose: 150 mls/hr Documented by: Non-Formulary Medication 1,200 mg/ Non-Formulary Medication 1,200 mg/ Sodium Chloride 250 mls @ 250 mls/hr IV ONETIME ONE Stop: 09/24/20 12:34 Last Admin: 09/24/20 15:19 Dose: Not Given Documented by: Non-Formulary Medication 1,200 mg/ Non-Formulary Medication 1,200 mg/ Sodium Chloride 250 mls @ 250 mls/hr IV ONETIME ONE Stop: 09/24/20 13:29 Last Admin: 09/24/20 12:25 Dose: 250 mls/hr Documented by: Magnesium Sulfate (Magnesium Sulfate In Water Premix) 2 gm in 50 mls @ 25 mls/hr IV ONETIME ONE Stop: 09/25/20 09:59 Last Admin: 09/25/20 07:43 Dose: 25 mls/hr Documented by: Sepsis Event Note - Focused Exam Vital Signs: Vital Signs Temp Pulse Resp BP Pulse Ox 09/25/20 11:52 36.2 C 59 L 16 125/59 L 94 L 09/25/20 09:29 77 130/88 09/25/20 07:39 36.6 C 64 16 113/72 96 09/25/20 05:59 37.3 C 59 L 16 148/77 H 95 - My Orders Last 24 Hours: My Active Orders 09/25/20 07:15 Levothyroxine 75 mcg PO ACBRK - Assessment Assessment:: I have seen and evaluated the patient independently of Mihir Amador PA-C. I have reviewed and agree with the plan of care as outlined by him for this patient. Please see orders.
[2020-09-25] MEDS: Levothyroxine 75 MCG Tab PO SCH (07:46)
[2020-09-25] MEDS ORDERED: Magnesium Sulfate/Water 2 GM/50 ML BAG IV ONE (08:00)
[2020-09-25] MEDS ORDERED: Enoxaparin 40 MG/0.4 ML Syringe SUBCUT SCH (09:00)
[2020-09-25] MEDS: Furosemide 20 MG Tab PO SCH (09:28)
[2020-09-25] MEDS: Potassium Chloride 20 MEQ Tab.ER PO SCH ×2 (09:28→21:22)
[2020-09-25] MEDS: Aspirin 81 MG Tab.Chew PO SCH (09:28)
[2020-09-25] MEDS: Lisinopril 20 MG Tab PO SCH (09:29)
[2020-09-25] MEDS: amLODIPine 5 MG Tab PO SCH (09:29)
[2020-09-25] MEDS: Cholecalciferol (Vitamin D3) 25 MCG Tab PO SCH (09:29)
[2020-09-25] MEDS: Metoprolol Succinate 50 MG Tab.ER PO SCH (09:29)
[2020-09-25] MEDS: Enoxaparin 30 MG/0.3 ML Syringe SUBCUT SCH (09:33)
[2020-09-25] MEDS: cefTRIAXone 2 GM in Sodium Chloride 0.9% 100 ML IV SCH (15:19)
[2020-09-25] MEDS: Azithromycin 250 MG Tab PO SCH (15:20)
[2020-09-25] MEDS: Ondansetron 4 MG/2 ML SDV IV PRN (17:39)
[2020-09-25] MEDS: Latanoprost 0.005% Ophth Soln 2.5 ML Bottle EYEBOTH SCH (21:23)
[2020-09-26] MEDS: Levothyroxine 75 MCG Tab PO SCH (06:40)
--- NOTE | 2020-09-26 07:36 | PCM.PN ---
<Mihir Amador - Last Filed: 09/26/20 14:51> - General Info Date of Service: 09/26/20 Functional Status: Reports: Pain Controlled, Tolerating Diet, Ambulating, Urinating, Incentive Spirometry, Other (Acapella ). Denies: New Symptoms - Review of Systems General: Reports: Weakness (improved ). Denies: Fever, Fatigue, Malaise, Chills HEENT: Reports: No Symptoms. Denies: Contact Lenses, Sore Throat Pulmonary: Reports: Shortness of Breath (improved), Cough (improved ) Cardiovascular: Reports: No Symptoms, Dyspnea on Exertion (improved ). Denies: Chest Pain, Palpitations, Edema, Lightheadedness Gastrointestinal: Reports: No Symptoms. Denies: Abdominal Pain, Constipation, Diarrhea, Nausea, Vomiting Genitourinary: Reports: No Symptoms. Denies: Pain Musculoskeletal: Reports: No Symptoms Skin: Reports: No Symptoms. Denies: Cyanosis Neurological: Reports: No Symptoms. Denies: Confusion, Numbness, Tingling, Difficulty Walking, Weakness, Gait Disturbance Psychiatric: Reports: No Symptoms - Patient Data Vitals - Most Recent: Last Vital Signs Temp 98.2 F 09/26/20 03:01 Pulse 61 09/26/20 03:01 Resp 12 09/26/20 03:01 BP 132/63 09/26/20 03:01 Pulse Ox 97 09/26/20 03:15 Weight - Most Recent: 77.337 kg I&O - Last 24 Hours: Intake & Output 09/25/20 09/26/20 09/26/20 22:59 06:59 14:59 Intake Total 670 75 Output Total 825 500 Balance -155 -425 Lab Results Last 24 Hours: Laboratory Results - last 24 hr 09/25/20 09/25/20 09/25/20 Range/Units 10:28 16:47 21:22 WBC (3.98-10.04) K/mm3 RBC (3.98-5.22) M/mm3 Hgb (11.2-15.7) gm/dl Hct (34.1-44.9) % MCV (79.4-94.8) fl MCH (25.6-32.2) pg MCHC (32.2-35.5) g/dl RDW Std Deviation (36.4-46.3) fL Plt Count (182-369) K/mm3 MPV (9.4-12.3) fl Neut % (Auto) (34.0-71.1) % Lymph % (Auto) (19.3-51.7) % Bartholomew % (Auto) (4.7-12.5) % Eos % (Auto) (0.7-5.8) Baso % (Auto) (0.1-1.2) % Neut # (Auto) (1.56-6.13) K/mm3 Lymph # (Auto) (1.18-3.74) K/mm3 Bartholomew # (Auto) (0.24-0.36) K/mm3 Eos # (Auto) (0.04-0.36) K/mm3 Baso # (Auto) (0.01-0.08) K/mm3 Manual Slide Review D-Dimer, Quantitative (0.19-0.50) mg/L POC Glucose 273 H 148 H 133 H (83-110) mg/dL Magnesium (1.8-2.4) mg/dl C-Reactive Protein (<1.0) mg/dL 09/26/20 09/26/20 09/26/20 Range/Units 05:10 05:10 05:10 WBC 3.92 L (3.98-10.04) K/mm3 RBC 4.47 (3.98-5.22) M/mm3 Hgb 14.4 (11.2-15.7) gm/dl Hct 43.8 (34.1-44.9) % MCV 98.0 H (79.4-94.8) fl MCH 32.2 (25.6-32.2) pg MCHC 32.9 (32.2-35.5) g/dl RDW Std Deviation 49.0 H (36.4-46.3) fL Plt Count 120 L (182-369) K/mm3 MPV 13.0 H (9.4-12.3) fl Neut % (Auto) 55.2 (34.0-71.1) % Lymph % (Auto) 24.5 (19.3-51.7) % Bartholomew % (Auto) 19.4 H (4.7-12.5) % Eos % (Auto) 0.3 L (0.7-5.8) Baso % (Auto) 0.3 (0.1-1.2) % Neut # (Auto) 2.17 (1.56-6.13) K/mm3 Lymph # (Auto) 0.96 L (1.18-3.74) K/mm3 Bartholomew # (Auto) 0.76 H (0.24-0.36) K/mm3 Eos # (Auto) 0.01 L (0.04-0.36) K/mm3 Baso # (Auto) 0.01 (0.01-0.08) K/mm3 Manual Slide Review Abnormal smear D-Dimer, Quantitative 0.97 H (0.19-0.50) mg/L POC Glucose (83-110) mg/dL Magnesium 2.3 (1.8-2.4) mg/dl C-Reactive Protein 2.6 H* (<1.0) mg/dL 09/26/20 Range/Units 06:43 WBC (3.98-10.04) K/mm3 RBC (3.98-5.22) M/mm3 Hgb (11.2-15.7) gm/dl Hct (34.1-44.9) % MCV (79.4-94.8) fl MCH (25.6-32.2) pg MCHC (32.2-35.5) g/dl RDW Std Deviation (36.4-46.3) fL Plt Count (182-369) K/mm3 MPV (9.4-12.3) fl Neut % (Auto) (34.0-71.1) % Lymph % (Auto) (19.3-51.7) % Bartholomew % (Auto) (4.7-12.5) % Eos % (Auto) (0.7-5.8) Baso % (Auto) (0.1-1.2) % Neut # (Auto) (1.56-6.13) K/mm3 Lymph # (Auto) (1.18-3.74) K/mm3 Bartholomew # (Auto) (0.24-0.36) K/mm3 Eos # (Auto) (0.04-0.36) K/mm3 Baso # (Auto) (0.01-0.08) K/mm3 Manual Slide Review D-Dimer, Quantitative (0.19-0.50) mg/L POC Glucose 122 H (83-110) mg/dL Magnesium (1.8-2.4) mg/dl C-Reactive Protein (<1.0) mg/dL Tod Results Last 24 Hours: Microbiology 09/24/20 15:46 Aerobic Blood Culture - Preliminary Blood - Venous - Lab Draw NO GROWTH AFTER 1 DAY Anaerobic Blood Culture - Final 09/24/20 15:37 Aerobic Blood Culture - Preliminary Blood - Venous NO GROWTH AFTER 1 DAY Anaerobic Blood Culture - Preliminary NO GROWTH AFTER 1 DAY 09/24/20 11:55 Urine Culture - Preliminary Urine, Bladder Gram Negative Rods Med Orders - Current: Current Medications Acetaminophen (Tylenol) 650 mg PO Q4H PRN PRN Reason: Pain (Mild 1-3)/fever Albuterol (Proventil Hfa) 0 gm INH Q4H PRN PRN Reason: SOB/Wheezing Amlodipine Besylate (Norvasc) 5 mg PO DAILY [facility] Last Admin: 09/25/20 09:29 Dose: 5 mg Documented by: Aspirin (Aspirin) 81 mg PO DAILY [facility] Last Admin: 09/25/20 09:28 Dose: 81 mg Documented by: Azithromycin (Zithromax) 500 mg PO Q24H [facility] Stop: 09/26/20 16:01 Last Admin: 09/25/20 15:20 Dose: 500 mg Documented by: Cholecalciferol (Vitamin D3) 50 mcg PO DAILY [facility] Last Admin: 09/25/20 09:29 Dose: 50 mcg Documented by: Diphenhydramine HCl (Benadryl) 50 mg IVPUSH ONETIME PRN PRN Reason: hypersensitivity reaction Enoxaparin Sodium (Lovenox) 30 mg SUBCUT DAILY [facility] Last Admin: 09/25/20 09:33 Dose: 30 mg Documented by: Famotidine (Pepcid) 20 mg IVPUSH ONETIME PRN PRN Reason: hypersensitivity reaction Furosemide (Lasix) 20 mg PO DAILY [facility] Last Admin: 09/25/20 09:28 Dose: 20 mg Documented by: Ceftriaxone Sodium 2 gm/ (Sodium Chloride) 100 mls @ 200 mls/hr IV Q24H [facility] Stop: 09/28/20 16:29 Last Admin: 09/25/20 15:19 Dose: 200 mls/hr Documented by: Insulin Human Lispro (Humalog) 0 unit SUBCUT QIDACANDBED [facility]; Protocol Last Admin: 09/25/20 21:24 Dose: Not Given Documented by: Latanoprost (Xalatan 0.005% Ophth Soln) 0 ml EYEBOTH BEDTIME [facility] Last Admin: 09/25/20 21:23 Dose: 1 drop Documented by: Levothyroxine Sodium (Levothyroxine) 75 mcg PO ACBRK [facility] Last Admin: 09/26/20 06:40 Dose: 75 mcg Documented by: Lidocaine HCl (Lmx 4 Cream With Tegaderm) 1 each TOP Q6H PRN PRN Reason: Prior to accessing port Lisinopril (Prinivil) 40 mg PO DAILY [facility] Last Admin: 09/25/20 09:29 Dose: 40 mg Documented by: Methylprednisolone Sodium Succinate (Solu-Medrol) 125 mg IVPUSH ONETIME PRN PRN Reason: hypersensitivity reaction Metoprolol Succinate (Toprol Xl) 200 mg PO DAILY [facility] Last Admin: 09/25/20 09:29 Dose: 200 mg Documented by: Ondansetron HCl (Zofran) 4 mg IV Q6H PRN PRN Reason: Nausea/Vomiting Last Admin: 09/25/20 17:39 Dose: 4 mg Documented by: Sodium Chloride (Saline Flush) 30 ml FLUSH ASDIRECTED [facility] Last Admin: 09/24/20 13:45 Dose: 30 ml Documented by: Tramadol HCl (Ultram) 50 mg PO Q6H PRN PRN Reason: Pain Discontinued Medications Enoxaparin Sodium (Lovenox) 40 mg SUBCUT DAILY [facility] Epinephrine HCl (Adrenalin) 0.3 mg IM ONETIME ONE Stop: 09/24/20 11:36 Last Admin: 09/24/20 15:18 Dose: Not Given Documented by: Furosemide (Lasix) 40 mg IVPUSH NOW ONE Stop: 09/24/20 12:46 Last Admin: 09/24/20 13:50 Dose: 40 mg Documented by: Dextrose/Sodium Chloride (Dextrose 5%-Normal Saline) 1,000 mls @ 150 mls/hr IV ASDIRECTED [facility] Last Admin: 09/24/20 10:02 Dose: 150 mls/hr Documented by: Non-Formulary Medication 1,200 mg/ Non-Formulary Medication 1,200 mg/ Sodium Chloride 250 mls @ 250 mls/hr IV ONETIME ONE Stop: 12/29/20 12:34 Last Admin: 09/24/20 15:19 Dose: Not Given Documented by: Non-Formulary Medication 1,200 mg/ Non-Formulary Medication 1,200 mg/ Sodium Chloride 250 mls @ 250 mls/hr IV ONETIME ONE Stop: 09/24/20 13:29 Last Admin: 09/24/20 12:25 Dose: 250 mls/hr Documented by: Magnesium Sulfate (Magnesium Sulfate In Water Premix) 2 gm in 50 mls @ 25 mls/hr IV ONETIME ONE Stop: 09/25/20 09:59 Last Admin: 09/25/20 07:43 Dose: 25 mls/hr Documented by: Potassium Chloride (Klor-Con M20) 40 meq PO BID [facility] Stop: 09/25/20 21:01 Last Admin: 09/25/20 21:22 Dose: 40 meq Documented by: - Exam Quality Assessment: DVT Prophylaxis. No: Supplemental Oxygen, Urine Catheter General: Alert, Oriented, Cooperative, No Acute Distress HEENT: Pupils Equal, Pupils Reactive, Mucous Membr. Moist/[place] Neck: Supple, Trachea Midline Lungs: Clear to Auscultation, Normal Respiratory Effort, Decreased Breath Sounds (bases ) Cardiovascular: Regular Rate, Regular Rhythm GI/Abdominal Exam: Normal Bowel Sounds, Soft, Non-Tender, No Distention (Female) Exam: Deferred Back Exam: Normal Inspection, Full Range of Motion Extremities: Normal Inspection, Normal Range of Motion, Non-Tender, No Pedal Edema, Normal Capillary Refill Skin: Warm, Dry, Intact Neurological: No New Focal Deficit Psy/Mental Status: Alert, Normal Affect, Normal Mood Sepsis Event Note - Evaluation Sepsis Screening Result: No Definite Risk - Focused Exam Vital Signs: Vital Signs Temp Pulse Resp BP Pulse Ox 09/26/20 03:15 97 09/26/20 03:01 98.2 F 61 12 132/63 09/25/20 21:20 98.1 F 59 L 12 112/56 L 92 L - Problem List & Annotations (1) COVID-19 determined by clinical diagnostic criteria SNOMED Code(s): 900410097, 097046015 Code(s): U07.1 - COVID-19 Status: Acute Priority: High Current Visit: Yes (2) Carcinoma, lung SNOMED Code(s): 104475406 Code(s): C34.90 - MALIGNANT NEOPLASM OF UNSP PART OF UNSP BRONCHUS OR LUNG Status: Chronic Priority: High Current Visit: Yes Qualifiers: Laterality: left Qualified Code(s): C34.92 - Malignant neoplasm of unspecified part of left bronchus or lung (3) Chronic renal insufficiency, stage III (moderate) SNOMED Code(s): 655409185 Code(s): N18.30 - CHRONIC KIDNEY DISEASE, STAGE 3 UNSPECIFIED Status: Acute Priority: High Current Visit: Yes Qualifiers: Chronic kidney disease stage 3 subtype: stage 3b (GFR 30-44) Qualified Code(s): N18.32 - Chronic kidney disease, stage 3b (4) Diabetes mellitus SNOMED Code(s): 99631099 Code(s): E11.9 - TYPE 2 DIABETES MELLITUS WITHOUT COMPLICATIONS Status: Chronic Priority: Low Current Visit: No Qualifiers: Diabetes mellitus type: type 2 Diabetes mellitus care home insulin use: without termite control representative use Diabetes mellitus complication status: with other specified complication Qualified Code(s): E11.69 - Type 2 diabetes mellitus with other specified complication (5) Fibromyalgia SNOMED Code(s): 750306938 Code(s): M79.7 - FIBROMYALGIA Status: Chronic Priority: Low Current Visit: No (6) Gastroesophageal reflux disease SNOMED Code(s): 716478252 Code(s): K21.9 - GASTRO-ESOPHAGEAL REFLUX DISEASE WITHOUT ESOPHAGITIS Status: Chronic Priority: Low Current Visit: No Qualifiers: Esophagitis presence: esophagitis presence not specified Qualified Code(s): K21.9 - Gastro-esophageal reflux disease without esophagitis (7) HLD (hyperlipidemia) SNOMED Code(s): 11101612 Code(s): E78.5 - HYPERLIPIDEMIA, UNSPECIFIED Status: Chronic Priority: Low Current Visit: No Qualifiers: Hyperlipidemia type: unspecified Qualified Code(s): E78.5 - Hyperlipidemia, unspecified (8) History of cardiac pacemaker SNOMED Code(s): 110103373 Code(s): Z95.0 - PRESENCE OF CARDIAC PACEMAKER Status: Chronic Priority: Low Current Visit: No (9) Hypertension SNOMED Code(s): 44751234 Code(s): I10 - ESSENTIAL (PRIMARY) HYPERTENSION Status: Chronic Priority: Low Current Visit: No Qualifiers: Hypertension type: unspecified Qualified Code(s): I10 - Essential (primary) hypertension (10) Hypothyroidism SNOMED Code(s): 87688546 Code(s): E03.9 - HYPOTHYROIDISM, UNSPECIFIED Status: Chronic Priority: Low Current Visit: No Qualifiers: Hypothyroidism type: unspecified Qualified Code(s): E03.9 - Hypothyroidism, unspecified (11) Failure to thrive SNOMED Code(s): 11461235 Code(s): HAM2349 - Status: Acute Priority: High Current Visit: Yes Qualifiers: Failure to thrive age range: in adult Qualified Code(s): R62.7 - Adult failure to thrive (12) Generalized weakness SNOMED Code(s): 58857978 Code(s): R53.1 - WEAKNESS Status: Acute Priority: High Current Visit: Yes (13) UTI (urinary tract infection) SNOMED Code(s): 78462519 Code(s): N39.0 - URINARY TRACT INFECTION, SITE NOT SPECIFIED Status: Acute Priority: High Current Visit: Yes Qualifiers: Urinary tract infection type: acute cystitis Hematuria presence: without hematuria Qualified Code(s): N30.00 - Acute cystitis without hematuria (14) Pneumonia SNOMED Code(s): 711121352 Code(s): J18.9 - PNEUMONIA, UNSPECIFIED ORGANISM Status: Acute Priority: High Current Visit: Yes Qualifiers: Pneumonia type: due to unspecified organism Laterality: right Lung location: upper lobe of lung Qualified Code(s): J18.9 - Pneumonia, unspecified organism (15) Hypokalemia SNOMED Code(s): 60293395 Code(s): E87.6 - HYPOKALEMIA Status: Resolved Priority: High Current Visit: Yes (16) Hypomagnesemia SNOMED Code(s): 624571850 Code(s): E83.42 - HYPOMAGNESEMIA Status: Resolved Priority: High Current Visit: Yes - Problem List Review Problem List Initiated/Reviewed/Updated: Yes - My Orders Last 24 Hours: My Active Orders 09/25/20 09:00 Aspirin 81 mg PO DAILY Cholecalciferol (Vitamin D3) [Vitamin D3] 50 mcg PO DAILY Enoxaparin [Lovenox] 30 mg SUBCUT DAILY Furosemide [Lasix] 20 mg PO DAILY Metoprolol Succinate [Toprol XL] 200 mg PO DAILY amLODIPine [Norvasc] 5 mg PO DAILY lisinopriL [Prinivil] 40 mg PO DAILY 09/27/20 05:11 CBC WITH AUTO DIFF [HEME] AM CMP [COMPREHENSIVE METABOLIC PN,CMP] [CHEM] AM CRP [C-REACTIVE PROTEIN] [CHEM] AM MAGNESIUM [CHEM] AM 09/28/20 05:11 CBC WITH AUTO DIFF [HEME] AM CMP [COMPREHENSIVE METABOLIC PN,CMP] [CHEM] AM CRP [C-REACTIVE PROTEIN] [CHEM] AM MAGNESIUM [CHEM] AM 09/28/20 14:42 DD [D-DIMER QUANTITATIVE] [COAG] Q48H 09/29/20 05:11 CMP [COMPREHENSIVE METABOLIC PN,CMP] [CHEM] AM - Assessment Assessment:: Assessment - Day of admission - 09/24/2020 * 85 yo female presents to ED via [facility] with concerns over COVID like symptoms * Reports fever, chills, loss of taste and smell, fatigue, nonproductive cough, myalgias and weakness * is also brought to ED with similar symptoms * Reports symptom onset as WednesdaySeptember 18 * Reports no solid intake for 4 days * History of lung cancer, hld, htn, pacemaker, fibromyalgia, Type II DM, hypothyroidism, vitamin D deficiency, thyroid nodule, MRSA * 12-lead EKG in ED shows atrial placed rhythm at 60 BPM with Q-waves in V1 and near Q-waves in V2-V3. * CXR shows parenchymal density within right upper chest. Treated lung cancer vs. metastatic disease vs PNA * Several nodular densities with in right chest also noted raising possibility of metastatic disease * Labs: * WBC 4.88 * Hgb 15.1 * Plt 140 * Neutrophils 68.4% * INR 0.94 * Sodium 137 * Potassium 3.5 * BUN 24 * Creatinine 1.5 * GFR 33 * Glucose 150 * Magnesium 1.9 * Bilirubin 0.8 * AST 107, ALT 223, Alk phos 60 * LDH 335 * CK-MB <0.5 * Troponin 0.022 * CRP 1.1 * Albumin 3.2 * D-Dimer 0.76 * Ferritin 580 * Lactic acid 1.2 * Pro-BNP 1077 * SARS-CoV-2 RNA positive * UA: Cloudy, 2+ protein, Trace-lysed occult blood, 2+ luke esterase, 40-50 WBC, Many bacteria * Given 40mg Lasix * Original plan was discharge home so patient given Regeneron in ED * Found to be very weak and decreasing saturations with UTI, will therefor be admitted to M/S/P inpatient. 09/25/2020 * Reports she feels much better today * Working with PT/OT * Required 1-2L of oxygen overnight but weaned today * Labs: * WBC 5.31 * Platelet 120 * Potassium 3.2 * BUN 25 * Creatinine 1.4 * GFR 36 * CRP 2.1 * A1c 6.6 * Vitamin D 52.2 * TSH 3.678 * UA growing gram negative rods * Blood cultures negative thus far * Continue Rocephin and azithromycin * Supplemented magnesium and potassium * Await urine culture * SW working on placement 09/26/2020 * Reports she continues to improve * Doing well with therapies * Off of oxygen today * UA shows lares sensitive E. Coli * Blood cultures remain negative * Patient and adamant about not going to [facility] or SNF * Labs today: * WBC 3.92 * HGB 14.4 * Plt 120 * Neutrophils 2.17 * D-Dimer 0.97 * Magnesium 2.3 * CRP 2.6 * Sodium 133 * Potassium 4.5 * BUN 37 * Creatinine 1.6 * GFR 31 * AST51, ALT 130, Alk phos 50 * CRP 2.6 * Likely discharge in next 24-48 hours * Switch from IV Rocephin to PO Keflex - Plan Plan:: COVID-19 determined by clinical diagnostic criteria Pneumonia Carcinoma, lung Failure to thrive Generalized weakness UTI (urinary tract infection) * Telemetry and continuous pulse oximeter * Continue azithromycin day - 3 * Discontinue Rocephin and start PO Keflex * Blood cultures negative * PRN albuterol * Monitor electrolytes * PT/OT * CM/SW * O2 as needed * RT consultation * Not requiring oxygen at this time - consider Dexamethasone if changes * IS/Acapella * Supplement zinc * Airborne/Contact/Droplet precautions * Legal Cashier consult Hypokalemia Hypomagnesemia, Resolved * Supplemented Chronic renal insufficiency, stage III (moderate) Diabetes mellitus Fibromyalgia Gastroesophageal reflux disease HLD (hyperlipidemia) History of cardiac pacemaker Hypertension Hypothyroidism * Home medications as ordered * QID AC and Bedtime glucose checks * Low intensity sliding scale insulin * Monitor need for IV fluids Code status: DNR/DNI PCP: Dr. Andrews Oncologist: Dr. Cortes DVT prophylaxis: Lovenox Social: Patient lives at home with her who was also admitted to the hospital for COVID-19 Disposition: Admitted to M/S/P inpatient with telemetry for management of COVID- 19 symptoms, probable PNA, UTI, and failure to thrive. Prognosis: Poor overall prognosis due to significant chronic conditions including lung cancer with probable metastatic disease. <Harley Mirza - Last Filed: 09/26/20 17:13> - Patient Data Vitals - Most Recent: Last Vital Signs Temp 36.4 C 09/26/20 15:13 Pulse 71 09/26/20 15:13 Resp 16 09/26/20 15:13 BP 126/65 09/26/20 15:13 Pulse Ox 94 L 09/26/20 14:00 I&O - Last 24 Hours: Intake & Output 09/26/20 09/26/20 09/26/20 06:59 14:59 22:59 Intake Total 75 360 580 Output Total 500 600 Balance -425 360 -20 Lab Results Last 24 Hours: Laboratory Results - last 24 hr 09/25/20 09/25/20 09/25/20 Range/Units 10:28 16:47 21:22 WBC (3.98-10.04) K/mm3 RBC (3.98-5.22) M/mm3 Hgb (11.2-15.7) gm/dl Hct (34.1-44.9) % MCV (79.4-94.8) fl MCH (25.6-32.2) pg MCHC (32.2-35.5) g/dl RDW Std Deviation (36.4-46.3) fL Plt Count (182-369) K/mm3 MPV (9.4-12.3) fl Neut % (Auto) (34.0-71.1) % Lymph % (Auto) (19.3-51.7) % Bartholomew % (Auto) (4.7-12.5) % Eos % (Auto) (0.7-5.8) Baso % (Auto) (0.1-1.2) % Neut # (Auto) (1.56-6.13) K/mm3 Lymph # (Auto) (1.18-3.74) K/mm3 Bartholomew # (Auto) (0.24-0.36) K/mm3 Eos # (Auto) (0.04-0.36) K/mm3 Baso # (Auto) (0.01-0.08) K/mm3 Manual Slide Review D-Dimer, Quantitative (0.19-0.50) mg/L Sodium (136-145) mEq/L Potassium (3.5-5.1) mEq/L Chloride (98-107) mEq/L Carbon Dioxide (21-32) mEq/L Anion Gap (5-15) BUN (7-18) mg/dL Creatinine (0.55-1.02) mg/dL Est Cr Clr Drug Dosing mL/min Estimated GFR (MDRD) (>60) mL/min BUN/Creatinine Ratio (14-18) Glucose (83-115) mg/dL POC Glucose 273 H 148 H 133 H (83-110) mg/dL Calcium (8.5-10.1) mg/dL Magnesium (1.8-2.4) mg/dl Total Bilirubin (0.2-1.0) mg/dL AST (15-37) U/L ALT (14-59) U/L Alkaline Phosphatase (46-116) U/L C-Reactive Protein (<1.0) mg/dL Total Protein (6.4-8.2) g/dl Albumin (3.4-5.0) g/dl Globulin gm/dL Albumin/Globulin Ratio (1-2) 09/26/20 09/26/20 09/26/20 Range/Units 05:10 05:10 05:10 WBC 3.92 L (3.98-10.04) K/mm3 RBC 4.47 (3.98-5.22) M/mm3 Hgb 14.4 (11.2-15.7) gm/dl Hct 43.8 (34.1-44.9) % MCV 98.0 H (79.4-94.8) fl MCH 32.2 (25.6-32.2) pg MCHC 32.9 (32.2-35.5) g/dl RDW Std Deviation 49.0 H (36.4-46.3) fL Plt Count 120 L (182-369) K/mm3 MPV 13.0 H (9.4-12.3) fl Neut % (Auto) 55.2 (34.0-71.1) % Lymph % (Auto) 24.5 (19.3-51.7) % Bartholomew % (Auto) 19.4 H (4.7-12.5) % Eos % (Auto) 0.3 L (0.7-5.8) Baso % (Auto) 0.3 (0.1-1.2) % Neut # (Auto) 2.17 (1.56-6.13) K/mm3 Lymph # (Auto) 0.96 L (1.18-3.74) K/mm3 Bartholomew # (Auto) 0.76 H (0.24-0.36) K/mm3 Eos # (Auto) 0.01 L (0.04-0.36) K/mm3 Baso # (Auto) 0.01 (0.01-0.08) K/mm3 Manual Slide Review Abnormal smear D-Dimer, Quantitative 0.97 H (0.19-0.50) mg/L Sodium (136-145) mEq/L Potassium (3.5-5.1) mEq/L Chloride (98-107) mEq/L Carbon Dioxide (21-32) mEq/L Anion Gap (5-15) BUN (7-18) mg/dL Creatinine (0.55-1.02) mg/dL Est Cr Clr Drug Dosing mL/min Estimated GFR (MDRD) (>60) mL/min BUN/Creatinine Ratio (14-18) Glucose (83-115) mg/dL POC Glucose (83-110) mg/dL Calcium (8.5-10.1) mg/dL Magnesium 2.3 (1.8-2.4) mg/dl Total Bilirubin (0.2-1.0) mg/dL AST (15-37) U/L ALT (14-59) U/L Alkaline Phosphatase (46-116) U/L C-Reactive Protein 2.6 H* (<1.0) mg/dL Total Protein (6.4-8.2) g/dl Albumin (3.4-5.0) g/dl Globulin gm/dL Albumin/Globulin Ratio (1-2) 09/26/20 09/26/20 09/26/20 Range/Units 05:10 06:43 11:43 WBC (3.98-10.04) K/mm3 RBC (3.98-5.22) M/mm3 Hgb (11.2-15.7) gm/dl Hct (34.1-44.9) % MCV (79.4-94.8) fl MCH (25.6-32.2) pg MCHC (32.2-35.5) g/dl RDW Std Deviation (36.4-46.3) fL Plt Count (182-369) K/mm3 MPV (9.4-12.3) fl Neut % (Auto) (34.0-71.1) % Lymph % (Auto) (19.3-51.7) % Bartholomew % (Auto) (4.7-12.5) % Eos % (Auto) (0.7-5.8) Baso % (Auto) (0.1-1.2) % Neut # (Auto) (1.56-6.13) K/mm3 Lymph # (Auto) (1.18-3.74) K/mm3 Bartholomew # (Auto) (0.24-0.36) K/mm3 Eos # (Auto) (0.04-0.36) K/mm3 Baso # (Auto) (0.01-0.08) K/mm3 Manual Slide Review D-Dimer, Quantitative (0.19-0.50) mg/L Sodium 133 L (136-145) mEq/L Potassium 4.5 (3.5-5.1) mEq/L Chloride 104 (98-107) mEq/L Carbon Dioxide 26 (21-32) mEq/L Anion Gap 7.5 (5-15) BUN 37 H (7-18) mg/dL Creatinine 1.6 H (0.55-1.02) mg/dL Est Cr Clr Drug Dosing 22.60 mL/min Estimated GFR (MDRD) 31 (>60) mL/min BUN/Creatinine Ratio 23.1 H (14-18) Glucose 119 H (83-115) mg/dL POC Glucose 122 H 169 H (83-110) mg/dL Calcium 8.7 (8.5-10.1) mg/dL Magnesium (1.8-2.4) mg/dl Total Bilirubin 0.4 (0.2-1.0) mg/dL AST 51 H (15-37) U/L ALT 130 H (14-59) U/L Alkaline Phosphatase 50 (46-116) U/L C-Reactive Protein (<1.0) mg/dL Total Protein 6.8 (6.4-8.2) g/dl Albumin 2.7 L (3.4-5.0) g/dl Globulin 4.1 gm/dL Albumin/Globulin Ratio 0.7 L (1-2) 09/26/20 Range/Units 16:58 WBC (3.98-10.04) K/mm3 RBC (3.98-5.22) M/mm3 Hgb (11.2-15.7) gm/dl Hct (34.1-44.9) % MCV (79.4-94.8) fl MCH (25.6-32.2) pg MCHC (32.2-35.5) g/dl RDW Std Deviation (36.4-46.3) fL Plt Count (182-369) K/mm3 MPV (9.4-12.3) fl Neut % (Auto) (34.0-71.1) % Lymph % (Auto) (19.3-51.7) % Bartholomew % (Auto) (4.7-12.5) % Eos % (Auto) (0.7-5.8) Baso % (Auto) (0.1-1.2) % Neut # (Auto) (1.56-6.13) K/mm3 Lymph # (Auto) (1.18-3.74) K/mm3 Bartholomew # (Auto) (0.24-0.36) K/mm3 Eos # (Auto) (0.04-0.36) K/mm3 Baso # (Auto) (0.01-0.08) K/mm3 Manual Slide Review D-Dimer, Quantitative (0.19-0.50) mg/L Sodium (136-145) mEq/L Potassium (3.5-5.1) mEq/L Chloride (98-107) mEq/L Carbon Dioxide (21-32) mEq/L Anion Gap (5-15) BUN (7-18) mg/dL Creatinine (0.55-1.02) mg/dL Est Cr Clr Drug Dosing mL/min Estimated GFR (MDRD) (>60) mL/min BUN/Creatinine Ratio (14-18) Glucose (83-115) mg/dL POC Glucose 200 H (83-110) mg/dL Calcium (8.5-10.1) mg/dL Magnesium (1.8-2.4) mg/dl Total Bilirubin (0.2-1.0) mg/dL AST (15-37) U/L ALT (14-59) U/L Alkaline Phosphatase (46-116) U/L C-Reactive Protein (<1.0) mg/dL Total Protein (6.4-8.2) g/dl Albumin (3.4-5.0) g/dl Globulin gm/dL Albumin/Globulin Ratio (1-2) Tod Results Last 24 Hours: Microbiology 09/24/20 15:46 Aerobic Blood Culture - Preliminary Blood - Venous - Lab Draw NO GROWTH AFTER 2 DAYS Anaerobic Blood Culture - Final 09/24/20 15:37 Aerobic Blood Culture - Preliminary Blood - Venous NO GROWTH AFTER 2 DAYS Anaerobic Blood Culture - Preliminary NO GROWTH AFTER 2 DAYS 09/24/20 15:30 MRSA Culture - Final Nasal/Axilla/Groin NO MRSA ISOLATED 09/24/20 11:55 Urine Culture - Final Urine, Bladder Escherichia Coli Med Orders - Current: Current Medications Acetaminophen (Tylenol) 650 mg PO Q4H PRN PRN Reason: Pain (Mild 1-3)/fever Albuterol (Proventil Hfa) 0 gm INH Q4H PRN PRN Reason: SOB/Wheezing Amlodipine Besylate (Norvasc) 5 mg PO DAILY [facility] Last Admin: 09/26/20 09:35 Dose: 5 mg Documented by: Aspirin (Aspirin) 81 mg PO DAILY [facility] Last Admin: 09/26/20 09:35 Dose: 81 mg Documented by: Cephalexin (Keflex) 500 mg PO ONETIME ONE Stop: 09/26/20 19:01 Cephalexin (Keflex) 500 mg PO Q12H [facility] Cholecalciferol (Vitamin D3) 50 mcg PO DAILY [facility] Last Admin: 09/26/20 09:34 Dose: 50 mcg Documented by: Diphenhydramine HCl (Benadryl) 50 mg IVPUSH ONETIME PRN PRN Reason: hypersensitivity reaction Enoxaparin Sodium (Lovenox) 30 mg SUBCUT DAILY [facility] Last Admin: 09/26/20 09:34 Dose: 30 mg Documented by: Famotidine (Pepcid) 20 mg IVPUSH ONETIME PRN PRN Reason: hypersensitivity reaction Furosemide (Lasix) 20 mg PO DAILY [facility] Last Admin: 09/26/20 09:35 Dose: 20 mg Documented by: Insulin Human Lispro (Humalog) 0 unit SUBCUT QIDACANDBED [facility]; Protocol Last Admin: 09/26/20 12:52 Dose: 1 units Documented by: Latanoprost (Xalatan 0.005% Ophth Soln) 0 ml EYEBOTH BEDTIME [facility] Last Admin: 09/25/20 21:23 Dose: 1 drop Documented by: Levothyroxine Sodium (Levothyroxine) 75 mcg PO ACBRK [facility] Last Admin: 09/26/20 06:40 Dose: 75 mcg Documented by: Lidocaine HCl (Lmx 4 Cream With Tegaderm) 1 each TOP Q6H PRN PRN Reason: Prior to accessing port Lisinopril (Prinivil) 40 mg PO DAILY [facility] Last Admin: 09/26/20 09:36 Dose: 40 mg Documented by: Methylprednisolone Sodium Succinate (Solu-Medrol) 125 mg IVPUSH ONETIME PRN PRN Reason: hypersensitivity reaction Metoprolol Succinate (Toprol Xl) 200 mg PO DAILY [facility] Last Admin: 09/26/20 09:36 Dose: 200 mg Documented by: Ondansetron HCl (Zofran) 4 mg IV Q6H PRN PRN Reason: Nausea/Vomiting Last Admin: 09/25/20 17:39 Dose: 4 mg Documented by: Sodium Chloride (Saline Flush) 30 ml FLUSH ASDIRECTED [facility] Last Admin: 09/24/20 13:45 Dose: 30 ml Documented by: Tramadol HCl (Ultram) 50 mg PO Q6H PRN PRN Reason: Pain Discontinued Medications Azithromycin (Zithromax) 500 mg PO Q24H [facility] Stop: 09/26/20 16:01 Last Admin: 09/26/20 15:10 Dose: 500 mg Documented by: Enoxaparin Sodium (Lovenox) 40 mg SUBCUT DAILY [facility] Epinephrine HCl (Adrenalin) 0.3 mg IM ONETIME ONE Stop: 09/24/20 11:36 Last Admin: 09/24/20 15:18 Dose: Not Given Documented by: Furosemide (Lasix) 40 mg IVPUSH NOW ONE Stop: 09/24/20 12:46 Last Admin: 09/24/20 13:50 Dose: 40 mg Documented by: Dextrose/Sodium Chloride (Dextrose 5%-Normal Saline) 1,000 mls @ 150 mls/hr IV ASDIRECTED [facility] Last Admin: 09/24/20 10:02 Dose: 150 mls/hr Documented by: Non-Formulary Medication 1,200 mg/ Non-Formulary Medication 1,200 mg/ Sodium Chloride 250 mls @ 250 mls/hr IV ONETIME ONE Stop: 09/24/20 12:34 Last Admin: 09/24/20 15:19 Dose: Not Given Documented by: Non-Formulary Medication 1,200 mg/ Non-Formulary Medication 1,200 mg/ Sodium Chloride 250 mls @ 250 mls/hr IV ONETIME ONE Stop: 09/24/20 13:29 Last Admin: 09/24/20 12:25 Dose: 250 mls/hr Documented by: Ceftriaxone Sodium 2 gm/ (Sodium Chloride) 100 mls @ 200 mls/hr IV Q24H [facility] Stop: 09/28/20 16:29 Last Admin: 09/25/20 15:19 Dose: 200 mls/hr Documented by: Magnesium Sulfate (Magnesium Sulfate In Water Premix) 2 gm in 50 mls @ 25 mls/hr IV ONETIME ONE Stop: 09/25/20 09:59 Last Admin: 09/25/20 07:43 Dose: 25 mls/hr Documented by: Potassium Chloride (Klor-Con M20) 40 meq PO BID [facility] Stop: 09/25/20 21:01 Last Admin: 09/25/20 21:22 Dose: 40 meq Documented by: Sepsis Event Note - Focused Exam Vital Signs: Vital Signs Temp Pulse Resp BP Pulse Ox 09/26/20 15:13 36.4 C 71 16 126/65 09/26/20 14:00 94 L 09/26/20 12:58 36.3 C 61 16 141/86 H 94 L 09/26/20 09:36 60 117/59 L 09/26/20 09:35 117/59 L 09/26/20 08:57 36.7 C 59 L 16 117/59 L 94 L - Plan Plan:: I have seen and evaluated the patient independent of Mihir Amador PA-C. I have reviewed and agree with the plan of care as outlined for this patient by him. I have discussed the case with Mihir. The patient at this time is not a safe discharge to home and would be more appropriate for an assisted living center. Please see orders.
[2020-09-26] MEDS: Enoxaparin 30 MG/0.3 ML Syringe SUBCUT SCH (09:34)
[2020-09-26] MEDS: Cholecalciferol (Vitamin D3) 25 MCG Tab PO SCH (09:34)
[2020-09-26] MEDS: Furosemide 20 MG Tab PO SCH (09:35)
[2020-09-26] MEDS: amLODIPine 5 MG Tab PO SCH (09:35)
[2020-09-26] MEDS: Aspirin 81 MG Tab.Chew PO SCH (09:35)
[2020-09-26] MEDS: Lisinopril 20 MG Tab PO SCH (09:36)
[2020-09-26] MEDS: Metoprolol Succinate 50 MG Tab.ER PO SCH (09:36)
[2020-09-26] MEDS: Azithromycin 250 MG Tab PO SCH (15:10)
[2020-09-26] MEDS ORDERED: Cephalexin 500 MG Cap PO ONE (19:00)
[2020-09-26] MEDS: Latanoprost 0.005% Ophth Soln 2.5 ML Bottle EYEBOTH SCH (21:13)
[2020-09-27] MEDS: Levothyroxine 75 MCG Tab PO SCH (06:08)
--- NOTE | 2020-09-27 07:49 | PCM.PN ---
- General Info Date of Service: 09/27/20 Admission Dx/Problem (Free Text): The patient was admitted for Covid pneumonia. Subjective Update: The patient is an 85-year-old lady who was admitted to acute hospitalization on September 24, 2020 secondary to pneumonia. The patient has continued to improve. She is still saying that she is weak and fatigued. She is concerned about her possible metastatic cancer. The patient has been tolerating diet. The patient also has denied any pain. Functional Status: Reports: Pain Controlled, Tolerating Diet - Review of Systems General: Reports: Weakness, Fatigue HEENT: Reports: No Symptoms Pulmonary: Reports: Shortness of Breath, Cough Cardiovascular: Reports: No Symptoms Gastrointestinal: Reports: No Symptoms Genitourinary: Reports: No Symptoms Musculoskeletal: Reports: No Symptoms Skin: Reports: No Symptoms Neurological: Reports: No Symptoms Psychiatric: Reports: No Symptoms - Patient Data Vitals - Most Recent: Last Vital Signs Temp 36.6 C 09/27/20 03:29 Pulse 66 09/27/20 03:36 Resp 16 09/27/20 03:29 BP 145/97 H 09/27/20 03:29 Pulse Ox 92 L 09/27/20 03:36 Weight - Most Recent: 77.337 kg I&O - Last 24 Hours: Intake & Output 09/26/20 09/27/20 09/27/20 22:59 06:59 14:59 Intake Total 680 0 Output Total 600 350 Balance 80 -350 Lab Results Last 24 Hours: Laboratory Results - last 24 hr 09/26/20 09/26/20 09/26/20 Range/Units 05:10 11:43 16:58 WBC (3.98-10.04) K/mm3 RBC (3.98-5.22) M/mm3 Hgb (11.2-15.7) gm/dl Hct (34.1-44.9) % MCV (79.4-94.8) fl MCH (25.6-32.2) pg MCHC (32.2-35.5) g/dl RDW Std Deviation (36.4-46.3) fL Plt Count (182-369) K/mm3 MPV (9.4-12.3) fl Neut % (Auto) (34.0-71.1) % Lymph % (Auto) (19.3-51.7) % [place] % (Auto) (4.7-12.5) % Eos % (Auto) (0.7-5.8) Baso % (Auto) (0.1-1.2) % Neut # (Auto) (1.56-6.13) K/mm3 Lymph # (Auto) (1.18-3.74) K/mm3 [place] # (Auto) (0.24-0.36) K/mm3 Eos # (Auto) (0.04-0.36) K/mm3 Baso # (Auto) (0.01-0.08) K/mm3 Manual Slide Review Sodium 133 L (136-145) mEq/L Potassium 4.5 (3.5-5.1) mEq/L Chloride 104 (98-107) mEq/L Carbon Dioxide 26 (21-32) mEq/L Anion Gap 7.5 (5-15) BUN 37 H (7-18) mg/dL Creatinine 1.6 H (0.55-1.02) mg/dL Est Cr Clr Drug Dosing 22.60 mL/min Estimated GFR (MDRD) 31 (>60) mL/min BUN/Creatinine Ratio 23.1 H (14-18) Glucose 119 H (83-115) mg/dL POC Glucose 169 H 200 H (83-110) mg/dL Calcium 8.7 (8.5-10.1) mg/dL Magnesium (1.8-2.4) mg/dl Total Bilirubin 0.4 (0.2-1.0) mg/dL AST 51 H (15-37) U/L ALT 130 H (14-59) U/L Alkaline Phosphatase 50 (46-116) U/L C-Reactive Protein (<1.0) mg/dL Total Protein 6.8 (6.4-8.2) g/dl Albumin 2.7 L (3.4-5.0) g/dl Globulin 4.1 gm/dL Albumin/Globulin Ratio 0.7 L (1-2) 09/26/20 09/27/20 09/27/20 Range/Units 19:54 04:10 04:10 WBC 4.11 (3.98-10.04) K/mm3 RBC 4.44 (3.98-5.22) M/mm3 Hgb 14.2 (11.2-15.7) gm/dl Hct 43.5 (34.1-44.9) % MCV 98.0 H (79.4-94.8) fl MCH 32.0 (25.6-32.2) pg MCHC 32.6 (32.2-35.5) g/dl RDW Std Deviation 48.4 H (36.4-46.3) fL Plt Count 125 L (182-369) K/mm3 MPV 12.5 H (9.4-12.3) fl Neut % (Auto) 50.6 (34.0-71.1) % Lymph % (Auto) 30.7 (19.3-51.7) % [place] % (Auto) 17.3 H (4.7-12.5) % Eos % (Auto) 1.0 (0.7-5.8) Baso % (Auto) 0.2 (0.1-1.2) % Neut # (Auto) 2.08 (1.56-6.13) K/mm3 Lymph # (Auto) 1.26 (1.18-3.74) K/mm3 [place] # (Auto) 0.71 H (0.24-0.36) K/mm3 Eos # (Auto) 0.04 (0.04-0.36) K/mm3 Baso # (Auto) 0.01 (0.01-0.08) K/mm3 Manual Slide Review Abnormal smear Sodium 140 (136-145) mEq/L Potassium 4.3 (3.5-5.1) mEq/L Chloride 106 (98-107) mEq/L Carbon Dioxide 27 (21-32) mEq/L Anion Gap 11.3 (5-15) BUN 39 H (7-18) mg/dL Creatinine 1.4 H (0.55-1.02) mg/dL Est Cr Clr Drug Dosing 25.83 mL/min Estimated GFR (MDRD) 36 (>60) mL/min BUN/Creatinine Ratio 27.9 H (14-18) Glucose 116 H (83-115) mg/dL POC Glucose 175 H (83-110) mg/dL Calcium 9.3 (8.5-10.1) mg/dL Magnesium 1.9 (1.8-2.4) mg/dl Total Bilirubin 0.4 (0.2-1.0) mg/dL AST 39 H (15-37) U/L ALT 110 H (14-59) U/L Alkaline Phosphatase 51 (46-116) U/L C-Reactive Protein 1.7 H* (<1.0) mg/dL Total Protein 6.7 (6.4-8.2) g/dl Albumin 2.7 L (3.4-5.0) g/dl Globulin 4.0 gm/dL Albumin/Globulin Ratio 0.7 L (1-2) 09/27/20 Range/Units 06:06 WBC (3.98-10.04) K/mm3 RBC (3.98-5.22) M/mm3 Hgb (11.2-15.7) gm/dl Hct (34.1-44.9) % MCV (79.4-94.8) fl MCH (25.6-32.2) pg MCHC (32.2-35.5) g/dl RDW Std Deviation (36.4-46.3) fL Plt Count (182-369) K/mm3 MPV (9.4-12.3) fl Neut % (Auto) (34.0-71.1) % Lymph % (Auto) (19.3-51.7) % [place] % (Auto) (4.7-12.5) % Eos % (Auto) (0.7-5.8) Baso % (Auto) (0.1-1.2) % Neut # (Auto) (1.56-6.13) K/mm3 Lymph # (Auto) (1.18-3.74) K/mm3 [place] # (Auto) (0.24-0.36) K/mm3 Eos # (Auto) (0.04-0.36) K/mm3 Baso # (Auto) (0.01-0.08) K/mm3 Manual Slide Review Sodium (136-145) mEq/L Potassium (3.5-5.1) mEq/L Chloride (98-107) mEq/L Carbon Dioxide (21-32) mEq/L Anion Gap (5-15) BUN (7-18) mg/dL Creatinine (0.55-1.02) mg/dL Est Cr Clr Drug Dosing mL/min Estimated GFR (MDRD) (>60) mL/min BUN/Creatinine Ratio (14-18) Glucose (83-115) mg/dL POC Glucose 120 H (83-110) mg/dL Calcium (8.5-10.1) mg/dL Magnesium (1.8-2.4) mg/dl Total Bilirubin (0.2-1.0) mg/dL AST (15-37) U/L ALT (14-59) U/L Alkaline Phosphatase (46-116) U/L C-Reactive Protein (<1.0) mg/dL Total Protein (6.4-8.2) g/dl Albumin (3.4-5.0) g/dl Globulin gm/dL Albumin/Globulin Ratio (1-2) Tod Results Last 24 Hours: Microbiology 09/24/20 15:46 Aerobic Blood Culture - Preliminary Blood - Venous - Lab Draw NO GROWTH AFTER 2 DAYS Anaerobic Blood Culture - Final 09/24/20 15:37 Aerobic Blood Culture - Preliminary Blood - Venous NO GROWTH AFTER 2 DAYS Anaerobic Blood Culture - Preliminary NO GROWTH AFTER 2 DAYS 09/24/20 15:30 MRSA Culture - Final Nasal/Axilla/Groin NO MRSA ISOLATED 09/24/20 11:55 Urine Culture - Final Urine, Bladder Escherichia Coli Med Orders - Current: Current Medications Acetaminophen (Tylenol) 650 mg PO Q4H PRN PRN Reason: Pain (Mild 1-3)/fever Albuterol (Proventil Hfa) 0 gm INH Q4H PRN PRN Reason: SOB/Wheezing Amlodipine Besylate (Norvasc) 5 mg PO DAILY [facility] Last Admin: 09/26/20 09:35 Dose: 5 mg Documented by: Aspirin (Aspirin) 81 mg PO DAILY [facility] Last Admin: 09/26/20 09:35 Dose: 81 mg Documented by: Cephalexin (Keflex) 500 mg PO Q12H [facility] Cholecalciferol (Vitamin D3) 50 mcg PO DAILY [facility] Last Admin: 09/26/20 09:34 Dose: 50 mcg Documented by: Diphenhydramine HCl (Benadryl) 50 mg IVPUSH ONETIME PRN PRN Reason: hypersensitivity reaction Enoxaparin Sodium (Lovenox) 30 mg SUBCUT DAILY [facility] Last Admin: 09/26/20 09:34 Dose: 30 mg Documented by: Famotidine (Pepcid) 20 mg IVPUSH ONETIME PRN PRN Reason: hypersensitivity reaction Furosemide (Lasix) 20 mg PO DAILY [facility] Last Admin: 09/26/20 09:35 Dose: 20 mg Documented by: Insulin Human Lispro (Humalog) 0 unit SUBCUT QIDACANDBED [facility]; Protocol Last Admin: 09/27/20 06:55 Dose: Not Given Documented by: Latanoprost (Xalatan 0.005% Ophth Soln) 0 ml EYEBOTH BEDTIME [facility] Last Admin: 09/26/20 21:13 Dose: 1 drop Documented by: Levothyroxine Sodium (Levothyroxine) 75 mcg PO ACBRK [facility] Last Admin: 09/27/20 06:08 Dose: 75 mcg Documented by: Lidocaine HCl (Lmx 4 Cream With Tegaderm) 1 each TOP Q6H PRN PRN Reason: Prior to accessing port Lisinopril (Prinivil) 40 mg PO DAILY [facility] Last Admin: 09/26/20 09:36 Dose: 40 mg Documented by: Methylprednisolone Sodium Succinate (Solu-Medrol) 125 mg IVPUSH ONETIME PRN PRN Reason: hypersensitivity reaction Metoprolol Succinate (Toprol Xl) 200 mg PO DAILY [facility] Last Admin: 09/26/20 09:36 Dose: 200 mg Documented by: Ondansetron HCl (Zofran) 4 mg IV Q6H PRN PRN Reason: Nausea/Vomiting Last Admin: 09/25/20 17:39 Dose: 4 mg Documented by: Sodium Chloride (Saline Flush) 30 ml FLUSH ASDIRECTED [facility] Last Admin: 09/24/20 13:45 Dose: 30 ml Documented by: Tramadol HCl (Ultram) 50 mg PO Q6H PRN PRN Reason: Pain Discontinued Medications Azithromycin (Zithromax) 500 mg PO Q24H [facility] Stop: 09/26/20 16:01 Last Admin: 09/26/20 15:10 Dose: 500 mg Documented by: Cephalexin (Keflex) 500 mg PO ONETIME ONE Stop: 09/26/20 19:01 Last Admin: 09/26/20 18:52 Dose: 500 mg Documented by: Enoxaparin Sodium (Lovenox) 40 mg SUBCUT DAILY [facility] Epinephrine HCl (Adrenalin) 0.3 mg IM ONETIME ONE Stop: 09/24/20 11:36 Last Admin: 09/24/20 15:18 Dose: Not Given Documented by: Furosemide (Lasix) 40 mg IVPUSH NOW ONE Stop: 09/24/20 12:46 Last Admin: 09/24/20 13:50 Dose: 40 mg Documented by: Dextrose/Sodium Chloride (Dextrose 5%-Normal Saline) 1,000 mls @ 150 mls/hr IV ASDIRECTED [facility] Last Admin: 09/24/20 10:02 Dose: 150 mls/hr Documented by: Non-Formulary Medication 1,200 mg/ Non-Formulary Medication 1,200 mg/ Sodium Chloride 250 mls @ 250 mls/hr IV ONETIME ONE Stop: 09/24/20 12:34 Last Admin: 09/24/20 15:19 Dose: Not Given Documented by: Non-Formulary Medication 1,200 mg/ Non-Formulary Medication 1,200 mg/ Sodium Chloride 250 mls @ 250 mls/hr IV ONETIME ONE Stop: 09/24/20 13:29 Last Admin: 09/24/20 12:25 Dose: 250 mls/hr Documented by: Ceftriaxone Sodium 2 gm/ (Sodium Chloride) 100 mls @ 200 mls/hr IV Q24H [facility] Stop: 09/28/20 16:29 Last Admin: 09/25/20 15:19 Dose: 200 mls/hr Documented by: Magnesium Sulfate (Magnesium Sulfate In Water Premix) 2 gm in 50 mls @ 25 mls/hr IV ONETIME ONE Stop: 09/25/20 09:59 Last Admin: 09/25/20 07:43 Dose: 25 mls/hr Documented by: Potassium Chloride (Klor-Con M20) 40 meq PO BID [facility] Stop: 09/25/20 21:01 Last Admin: 09/25/20 21:22 Dose: 40 meq Documented by: - Exam Quality Assessment: DVT Prophylaxis. No: Supplemental Oxygen General: Alert, Oriented, Cooperative, No Acute Distress HEENT: Pupils Equal, Pupils Reactive, EOMI Neck: Supple, Trachea Midline Lungs: Clear to Auscultation, Normal Respiratory Effort Cardiovascular: Regular Rate, Regular Rhythm (Paced) GI/Abdominal Exam: Normal Bowel Sounds, Soft, No Distention (Female) Exam: Deferred Back Exam: Normal Inspection (Age-appropriate) Extremities: Normal Inspection (Age-appropriate), No Pedal Edema Skin: Warm, Dry, Intact Neurological: No New Focal Deficit Psy/Mental Status: Alert, Normal Affect Sepsis Event Note - Evaluation Sepsis Screening Result: No Definite Risk - Focused Exam Vital Signs: Vital Signs Temp Pulse Resp BP Pulse Ox Pulse Ox 09/27/20 03:36 66 92 L 09/27/20 03:29 36.6 C 16 145/97 H 09/26/20 23:12 36.4 C 16 138/56 L 09/26/20 21:09 120/69 09/26/20 21:00 95 - Problem List & Annotations (1) UTI (urinary tract infection) SNOMED Code(s): 20183185 Code(s): N39.0 - URINARY TRACT INFECTION, SITE NOT SPECIFIED Status: Acute Priority: High Current Visit: Yes Qualifiers: Urinary tract infection type: acute cystitis Hematuria presence: without hematuria Qualified Code(s): N30.00 - Acute cystitis without hematuria (2) Pneumonia SNOMED Code(s): 691031088 Code(s): J18.9 - PNEUMONIA, UNSPECIFIED ORGANISM Status: Acute Priority: High Current Visit: Yes Qualifiers: Pneumonia type: due to unspecified organism Laterality: right Lung location: upper lobe of lung Qualified Code(s): J18.9 - Pneumonia, unspecified organism (3) COVID-19 determined by clinical diagnostic criteria SNOMED Code(s): 676911601, 665741391 Code(s): U07.1 - COVID-19 Status: Acute Priority: High Current Visit: Yes (4) Chronic renal insufficiency, stage III (moderate) SNOMED Code(s): 622811325 Code(s): N18.30 - CHRONIC KIDNEY DISEASE, STAGE 3 UNSPECIFIED Status: Acute Priority: High Current Visit: Yes Qualifiers: Chronic kidney disease stage 3 subtype: stage 3b (GFR 30-44) Qualified Code(s): N18.32 - Chronic kidney disease, stage 3b (5) Physical deconditioning SNOMED Code(s): 36063864775317 Code(s): R53.81 - OTHER MALAISE Status: Acute Current Visit: Yes - Problem List Review Problem List Initiated/Reviewed/Updated: Yes - Assessment Assessment:: Assessment - Day of admission - 09/24/2020 * 85 yo female presents to ED via [facility] with concerns over COVID like symptoms * Reports fever, chills, loss of taste and smell, fatigue, nonproductive cough, myalgias and weakness * is also brought to ED with similar symptoms * Reports symptom onset as WednesdaySeptember 18 * Reports no solid intake for 4 days * History of lung cancer, hld, htn, pacemaker, fibromyalgia, Type II DM, hypothyroidism, vitamin D deficiency, thyroid nodule, MRSA * 12-lead EKG in ED shows atrial placed rhythm at 60 BPM with Q-waves in V1 and near Q-waves in V2-V3. * CXR shows parenchymal density within right upper chest. Treated lung cancer vs. metastatic disease vs PNA * Several nodular densities with in right chest also noted raising possibility of metastatic disease * Labs: * WBC 4.88 * Hgb 15.1 * Plt 140 * Neutrophils 68.4% * INR 0.94 * Sodium 137 * Potassium 3.5 * BUN 24 * Creatinine 1.5 * GFR 33 * Glucose 150 * Magnesium 1.9 * Bilirubin 0.8 * AST 107, ALT 223, Alk phos 60 * LDH 335 * CK-MB <0.5 * Troponin 0.022 * CRP 1.1 * Albumin 3.2 * D-Dimer 0.76 * Ferritin 580 * Lactic acid 1.2 * Pro-BNP 1077 * SARS-CoV-2 RNA positive * UA: Cloudy, 2+ protein, Trace-lysed occult blood, 2+ luke esterase, 40-50 WBC, Many bacteria * Given 40mg Lasix * Original plan was discharge home so patient given Regeneron in ED * Found to be very weak and decreasing saturations with UTI, will therefor be admitted to [facility] inpatient. 09/25/2020 * Reports she feels much better today * Working with PT/OT * Required 1-2L of oxygen overnight but weaned today * Labs: * WBC 5.31 * Platelet 120 * Potassium 3.2 * BUN 25 * Creatinine 1.4 * GFR 36 * CRP 2.1 * A1c 6.6 * Vitamin D 52.2 * TSH 3.678 * UA growing gram negative rods * Blood cultures negative thus far * Continue Rocephin and azithromycin * Supplemented magnesium and potassium * Await urine culture * SW working on placement 09/26/2020 * Reports she continues to improve * Doing well with therapies * Off of oxygen today * UA shows lares sensitive E. Coli * Blood cultures remain negative * Patient and adamant about not going to [facility] or SNF * Labs today: * WBC 3.92 * HGB 14.4 * Plt 120 * Neutrophils 2.17 * D-Dimer 0.97 * Magnesium 2.3 * CRP 2.6 * Sodium 133 * Potassium 4.5 * BUN 37 * Creatinine 1.6 * GFR 31 * AST51, ALT 130, Alk phos 50 * CRP 2.6 * Likely discharge in next 24-48 hours * Switch from IV Rocephin to PO Keflex 09/27/2020 The patient is a chronically ill 85-year-old lady who is doing much better today. She is not on supplemental oxygen. We will continue with COVID-19 pneu monia treatment. She was also transitioned from Rocephin to p.o. Keflex as her urine cultures grew pansensitive E. coli. The patient will have her medications renally dosed. She is to continue with her appropriate diet as tolerated. I have also ordered repeat laboratory studies for the morning. I do think at this time the patient is not safe to go home and likely will need an assisted living center or detention facility to strengthen before going home. She and her have been adamant about not going to home although family discussion was held yesterday. The patient also has been encouraged to ambulate. - Plan Plan:: I have seen and evaluated the patient independent of Mihir Amador PA-C. I have reviewed and agree with the plan of care as outlined for this patient by him. I have discussed the case with Mihir. The patient at this time is not a safe discharge to home and would be more appropriate for an assisted living center. Please see orders.
[2020-09-27] MEDS: Metoprolol Succinate 50 MG Tab.ER PO SCH (09:55)
[2020-09-27] MEDS: Enoxaparin 30 MG/0.3 ML Syringe SUBCUT SCH (09:56)
[2020-09-27] MEDS: amLODIPine 5 MG Tab PO SCH (09:56)
[2020-09-27] MEDS: Cholecalciferol (Vitamin D3) 25 MCG Tab PO SCH (09:56)
[2020-09-27] MEDS: Cephalexin 500 MG Cap PO SCH ×2 (09:56→20:06)
[2020-09-27] MEDS: Lisinopril 20 MG Tab PO SCH (09:56)
[2020-09-27] MEDS: Furosemide 20 MG Tab PO SCH (09:57)
[2020-09-27] MEDS: Aspirin 81 MG Tab.Chew PO SCH (09:57)
[2020-09-27] MEDS: Latanoprost 0.005% Ophth Soln 2.5 ML Bottle EYEBOTH SCH (20:06)
[2020-09-28] MEDS: Levothyroxine 75 MCG Tab PO SCH (06:10)
--- NOTE | 2020-09-28 07:56 | PCM.PN ---
- General Info Date of Service: 09/28/20 Admission Dx/Problem (Free Text): The patient was admitted for Covid pneumonia. Subjective Update: The patient is an 85-year-old lady who had been admitted to acute hospitalization on September 24, 2020 due to Covid pneumonia. The patient also has a history of lung cancer and she is pending radiation and possible lobectomy. The patient today is not on supportive oxygen. She has been ambulating somewhat. The patient has been tolerating her diet. She has denied any pain. Her overriding concern is having her cancer taken care of the patient is also worried about her is also in hospital. Functional Status: Reports: Pain Controlled, Tolerating Diet - Review of Systems General: Reports: Weakness, Fatigue HEENT: Reports: No Symptoms Pulmonary: Reports: Cough Cardiovascular: Reports: No Symptoms Gastrointestinal: Reports: No Symptoms Genitourinary: Reports: No Symptoms Musculoskeletal: Reports: No Symptoms Skin: Reports: No Symptoms Neurological: Reports: No Symptoms Psychiatric: Reports: No Symptoms - Patient Data Vitals - Most Recent: Last Vital Signs Temp 36.6 C 09/28/20 02:36 Pulse 60 09/28/20 02:36 Resp 20 09/28/20 02:36 BP 100/28 L 09/28/20 02:36 Pulse Ox 94 L 09/27/20 20:00 Weight - Most Recent: 76.975 kg I&O - Last 24 Hours: Intake & Output 09/27/20 09/28/20 09/28/20 22:59 06:59 14:59 Intake Total 840 220 Output Total 650 600 Balance 190 -380 Lab Results Last 24 Hours: Laboratory Results - last 24 hr 09/27/20 09/27/20 09/27/20 Range/Units 11:01 17:11 20:08 WBC (3.98-10.04) K/mm3 RBC (3.98-5.22) M/mm3 Hgb (11.2-15.7) gm/dl Hct (34.1-44.9) % MCV (79.4-94.8) fl MCH (25.6-32.2) pg MCHC (32.2-35.5) g/dl RDW Std Deviation (36.4-46.3) fL Plt Count (182-369) K/mm3 MPV (9.4-12.3) fl Neut % (Auto) (34.0-71.1) % Lymph % (Auto) (19.3-51.7) % [place] % (Auto) (4.7-12.5) % Eos % (Auto) (0.7-5.8) Baso % (Auto) (0.1-1.2) % Neut # (Auto) (1.56-6.13) K/mm3 Lymph # (Auto) (1.18-3.74) K/mm3 [place] # (Auto) (0.24-0.36) K/mm3 Eos # (Auto) (0.04-0.36) K/mm3 Baso # (Auto) (0.01-0.08) K/mm3 Manual Slide Review D-Dimer, Quantitative (0.19-0.50) mg/L Sodium (136-145) mEq/L Potassium (3.5-5.1) mEq/L Chloride (98-107) mEq/L Carbon Dioxide (21-32) mEq/L Anion Gap (5-15) BUN (7-18) mg/dL Creatinine (0.55-1.02) mg/dL Est Cr Clr Drug Dosing mL/min Estimated GFR (MDRD) (>60) mL/min BUN/Creatinine Ratio (14-18) Glucose (83-115) mg/dL POC Glucose 162 H 149 H 219 H (83-110) mg/dL Calcium (8.5-10.1) mg/dL Magnesium (1.8-2.4) mg/dl Total Bilirubin (0.2-1.0) mg/dL AST (15-37) U/L ALT (14-59) U/L Alkaline Phosphatase (46-116) U/L C-Reactive Protein (<1.0) mg/dL Total Protein (6.4-8.2) g/dl Albumin (3.4-5.0) g/dl Globulin gm/dL Albumin/Globulin Ratio (1-2) 09/28/20 09/28/20 09/28/20 Range/Units 04:54 04:54 04:54 WBC 4.85 (3.98-10.04) K/mm3 RBC 4.43 (3.98-5.22) M/mm3 Hgb 14.2 (11.2-15.7) gm/dl Hct 43.2 (34.1-44.9) % MCV 97.5 H (79.4-94.8) fl MCH 32.1 (25.6-32.2) pg MCHC 32.9 (32.2-35.5) g/dl RDW Std Deviation 47.3 H (36.4-46.3) fL Plt Count 141 L (182-369) K/mm3 MPV 12.2 (9.4-12.3) fl Neut % (Auto) 55.9 (34.0-71.1) % Lymph % (Auto) 27.4 (19.3-51.7) % [place] % (Auto) 15.5 H (4.7-12.5) % Eos % (Auto) 0.8 (0.7-5.8) Baso % (Auto) 0.2 (0.1-1.2) % Neut # (Auto) 2.71 (1.56-6.13) K/mm3 Lymph # (Auto) 1.33 (1.18-3.74) K/mm3 [place] # (Auto) 0.75 H (0.24-0.36) K/mm3 Eos # (Auto) 0.04 (0.04-0.36) K/mm3 Baso # (Auto) 0.01 (0.01-0.08) K/mm3 Manual Slide Review Normal smear D-Dimer, Quantitative 0.97 H (0.19-0.50) mg/L Sodium 139 (136-145) mEq/L Potassium 4.3 (3.5-5.1) mEq/L Chloride 104 (98-107) mEq/L Carbon Dioxide 28 (21-32) mEq/L Anion Gap 11.3 (5-15) BUN 39 H (7-18) mg/dL Creatinine 1.5 H (0.55-1.02) mg/dL Est Cr Clr Drug Dosing 24.11 mL/min Estimated GFR (MDRD) 33 (>60) mL/min BUN/Creatinine Ratio 26.0 H (14-18) Glucose 133 H (83-115) mg/dL POC Glucose (83-110) mg/dL Calcium 9.4 (8.5-10.1) mg/dL Magnesium 1.8 (1.8-2.4) mg/dl Total Bilirubin 0.6 (0.2-1.0) mg/dL AST 24 (15-37) U/L ALT 80 H (14-59) U/L Alkaline Phosphatase 47 (46-116) U/L C-Reactive Protein 0.9 (<1.0) mg/dL Total Protein 6.6 (6.4-8.2) g/dl Albumin 2.7 L (3.4-5.0) g/dl Globulin 3.9 gm/dL Albumin/Globulin Ratio 0.7 L (1-2) Tod Results Last 24 Hours: Microbiology 09/24/20 15:46 Aerobic Blood Culture - Preliminary Blood - Venous - Lab Draw NO GROWTH AFTER 3 DAYS Anaerobic Blood Culture - Final 09/24/20 15:37 Aerobic Blood Culture - Preliminary Blood - Venous NO GROWTH AFTER 3 DAYS Anaerobic Blood Culture - Preliminary NO GROWTH AFTER 3 DAYS Med Orders - Current: Current Medications Acetaminophen (Tylenol) 650 mg PO Q4H PRN PRN Reason: Pain (Mild 1-3)/fever Albuterol (Proventil Hfa) 0 gm INH Q4H PRN PRN Reason: SOB/Wheezing Amlodipine Besylate (Norvasc) 5 mg PO DAILY [facility] Last Admin: 09/27/20 09:56 Dose: 5 mg Documented by: Aspirin (Aspirin) 81 mg PO DAILY [facility] Last Admin: 09/27/20 09:57 Dose: 81 mg Documented by: Cephalexin (Keflex) 500 mg PO Q12H [facility] Last Admin: 09/27/20 20:06 Dose: 500 mg Documented by: Cholecalciferol (Vitamin D3) 50 mcg PO DAILY [facility] Last Admin: 09/27/20 09:56 Dose: 50 mcg Documented by: Diphenhydramine HCl (Benadryl) 50 mg IVPUSH ONETIME PRN PRN Reason: hypersensitivity reaction Enoxaparin Sodium (Lovenox) 30 mg SUBCUT DAILY [facility] Last Admin: 09/27/20 09:56 Dose: 30 mg Documented by: Famotidine (Pepcid) 20 mg IVPUSH ONETIME PRN PRN Reason: hypersensitivity reaction Furosemide (Lasix) 20 mg PO DAILY [facility] Last Admin: 09/27/20 09:57 Dose: 20 mg Documented by: Insulin Human Lispro (Humalog) 0 unit SUBCUT QIDACANDBED [facility]; Protocol Last Admin: 09/28/20 07:53 Dose: Not Given Documented by: Latanoprost (Xalatan 0.005% Ophth Soln) 0 ml EYEBOTH BEDTIME [facility] Last Admin: 09/27/20 20:06 Dose: 1 drop Documented by: Levothyroxine Sodium (Levothyroxine) 75 mcg PO ACBRK [facility] Last Admin: 09/28/20 06:10 Dose: 75 mcg Documented by: Lidocaine HCl (Lmx 4 Cream With Tegaderm) 1 each TOP Q6H PRN PRN Reason: Prior to accessing port Lisinopril (Prinivil) 40 mg PO DAILY [facility] Last Admin: 09/27/20 09:56 Dose: 40 mg Documented by: Methylprednisolone Sodium Succinate (Solu-Medrol) 125 mg IVPUSH ONETIME PRN PRN Reason: hypersensitivity reaction Metoprolol Succinate (Toprol Xl) 200 mg PO DAILY [facility] Last Admin: 09/27/20 09:55 Dose: 200 mg Documented by: Ondansetron HCl (Zofran) 4 mg IV Q6H PRN PRN Reason: Nausea/Vomiting Last Admin: 09/25/20 17:39 Dose: 4 mg Documented by: Sodium Chloride (Saline Flush) 30 ml FLUSH ASDIRECTED [facility] Last Admin: 09/24/20 13:45 Dose: 30 ml Documented by: Tramadol HCl (Ultram) 50 mg PO Q6H PRN PRN Reason: Pain Discontinued Medications Azithromycin (Zithromax) 500 mg PO Q24H [facility] Stop: 09/26/20 16:01 Last Admin: 09/26/20 15:10 Dose: 500 mg Documented by: Cephalexin (Keflex) 500 mg PO ONETIME ONE Stop: 09/26/20 19:01 Last Admin: 09/26/20 18:52 Dose: 500 mg Documented by: Enoxaparin Sodium (Lovenox) 40 mg SUBCUT DAILY [facility] Epinephrine HCl (Adrenalin) 0.3 mg IM ONETIME ONE Stop: 09/24/20 11:36 Last Admin: 09/24/20 15:18 Dose: Not Given Documented by: Furosemide (Lasix) 40 mg IVPUSH NOW ONE Stop: 09/24/20 12:46 Last Admin: 09/24/20 13:50 Dose: 40 mg Documented by: Dextrose/Sodium Chloride (Dextrose 5%-Normal Saline) 1,000 mls @ 150 mls/hr IV ASDIRECTED [facility] Last Admin: 09/24/20 10:02 Dose: 150 mls/hr Documented by: Non-Formulary Medication 1,200 mg/ Non-Formulary Medication 1,200 mg/ Sodium Chloride 250 mls @ 250 mls/hr IV ONETIME ONE Stop: 09/24/20 12:34 Last Admin: 09/24/20 15:19 Dose: Not Given Documented by: Non-Formulary Medication 1,200 mg/ Non-Formulary Medication 1,200 mg/ Sodium Chloride 250 mls @ 250 mls/hr IV ONETIME ONE Stop: 09/24/20 13:29 Last Admin: 09/24/20 12:25 Dose: 250 mls/hr Documented by: Ceftriaxone Sodium 2 gm/ (Sodium Chloride) 100 mls @ 200 mls/hr IV Q24H [facility] Stop: 09/28/20 16:29 Last Admin: 09/25/20 15:19 Dose: 200 mls/hr Documented by: Magnesium Sulfate (Magnesium Sulfate In Water Premix) 2 gm in 50 mls @ 25 mls/hr IV ONETIME ONE Stop: 09/25/20 09:59 Last Admin: 09/25/20 07:43 Dose: 25 mls/hr Documented by: Potassium Chloride (Klor-Con M20) 40 meq PO BID [facility] Stop: 09/25/20 21:01 Last Admin: 09/25/20 21:22 Dose: 40 meq Documented by: - Exam Quality Assessment: DVT Prophylaxis. No: Supplemental Oxygen General: Alert, Oriented, Cooperative, No Acute Distress HEENT: Pupils Equal, Pupils Reactive, EOMI, Mucous Membr. Moist/[place] Neck: Supple, Trachea Midline Lungs: Normal Respiratory Effort, Rales ([place]) Cardiovascular: Regular Rate, Regular Rhythm GI/Abdominal Exam: Normal Bowel Sounds, Soft, Non-Tender, No Distention (Female) Exam: Deferred Back Exam: Normal Inspection (Appropriate for age) Extremities: Normal Inspection, Normal Range of Motion (Appropriate for age), No Pedal Edema Skin: Warm, Dry, Intact Neurological: No New Focal Deficit Psy/Mental Status: Alert, Normal Affect Sepsis Event Note - Evaluation Sepsis Screening Result: No Definite Risk - Focused Exam Vital Signs: Vital Signs Temp Pulse Pulse Resp BP Pulse Ox 09/28/20 02:36 36.6 C 60 20 100/28 L 09/27/20 23:05 36.6 C 16 128/63 09/27/20 20:00 64 94 L - Problem List & Annotations (1) UTI (urinary tract infection) SNOMED Code(s): 09545333 Code(s): N39.0 - URINARY TRACT INFECTION, SITE NOT SPECIFIED Status: Acute Priority: High Current Visit: Yes Qualifiers: Urinary tract infection type: acute cystitis Hematuria presence: without hematuria Qualified Code(s): N30.00 - Acute cystitis without hematuria (2) Pneumonia SNOMED Code(s): 600308546 Code(s): J18.9 - PNEUMONIA, UNSPECIFIED ORGANISM Status: Acute Priority: High Current Visit: Yes Qualifiers: Pneumonia type: due to unspecified organism Laterality: right Lung location: upper lobe of lung Qualified Code(s): J18.9 - Pneumonia, unspecified organism (3) COVID-19 determined by clinical diagnostic criteria SNOMED Code(s): 336909435, 278059328 Code(s): U07.1 - COVID-19 Status: Acute Priority: High Current Visit: Yes (4) Chronic renal insufficiency, stage III (moderate) SNOMED Code(s): 488691519 Code(s): N18.30 - CHRONIC KIDNEY DISEASE, STAGE 3 UNSPECIFIED Status: Acute Priority: High Current Visit: Yes Qualifiers: Chronic kidney disease stage 3 subtype: stage 3b (GFR 30-44) Qualified Code(s): N18.32 - Chronic kidney disease, stage 3b (5) Physical deconditioning SNOMED Code(s): 51807791981723 Code(s): R53.81 - OTHER MALAISE Status: Acute Current Visit: Yes - Problem List Review Problem List Initiated/Reviewed/Updated: Yes - Assessment Assessment:: Assessment - Day of admission - 09/24/2020 * 85 yo female presents to ED via [facility] with concerns over COVID like symptoms * Reports fever, chills, loss of taste and smell, fatigue, nonproductive cough, myalgias and weakness * is also brought to ED with similar symptoms * Reports symptom onset as WednesdaySeptember 18 * Reports no solid intake for 4 days * History of lung cancer, hld, htn, pacemaker, fibromyalgia, Type II DM, hypot hyroidism, vitamin D deficiency, thyroid nodule, MRSA * 12-lead EKG in ED shows atrial placed rhythm at 60 BPM with Q-waves in V1 and near Q-waves in V2-V3. * CXR shows parenchymal density within right upper chest. Treated lung cancer vs. metastatic disease vs PNA * Several nodular densities with in right chest also noted raising possibility of metastatic disease * Labs: * WBC 4.88 * Hgb 15.1 * Plt 140 * Neutrophils 68.4% * INR 0.94 * Sodium 137 * Potassium 3.5 * BUN 24 * Creatinine 1.5 * GFR 33 * Glucose 150 * Magnesium 1.9 * Bilirubin 0.8 * AST 107, ALT 223, Alk phos 60 * LDH 335 * CK-MB <0.5 * Troponin 0.022 * CRP 1.1 * Albumin 3.2 * D-Dimer 0.76 * Ferritin 580 * Lactic acid 1.2 * Pro-BNP 1077 * SARS-CoV-2 RNA positive * UA: Cloudy, 2+ protein, Trace-lysed occult blood, 2+ luke esterase, 40-50 WBC, Many bacteria * Given 40mg Lasix * Original plan was discharge home so patient given Regeneron in ED * Found to be very weak and decreasing saturations with UTI, will therefor be admitted to [facility] inpatient. 09/25/2020 * Reports she feels much better today * Working with PT/OT * Required 1-2L of oxygen overnight but weaned today * Labs: * WBC 5.31 * Platelet 120 * Potassium 3.2 * BUN 25 * Creatinine 1.4 * GFR 36 * CRP 2.1 * A1c 6.6 * Vitamin D 52.2 * TSH 3.678 * UA growing gram negative rods * Blood cultures negative thus far * Continue Rocephin and azithromycin * Supplemented magnesium and potassium * Await urine culture * SW working on placement 09/26/2020 * Reports she continues to improve * Doing well with therapies * Off of oxygen today * UA shows lares sensitive E. Coli * Blood cultures remain negative * Patient and adamant about not going to [facility] or SNF * Labs today: * WBC 3.92 * HGB 14.4 * Plt 120 * Neutrophils 2.17 * D-Dimer 0.97 * Magnesium 2.3 * CRP 2.6 * Sodium 133 * Potassium 4.5 * BUN 37 * Creatinine 1.6 * GFR 31 * AST51, ALT 130, Alk phos 50 * CRP 2.6 * Likely discharge in next 24-48 hours * Switch from IV Rocephin to PO Keflex 09/27/2020 The patient is a chronically ill 85-year-old lady who is doing much better today. She is not on supplemental oxygen. We will continue with COVID-19 pneumonia treatment. She was also transitioned from Rocephin to p.o. Keflex as her urine cultures grew pansensitive E. coli. The patient will have her med ications renally dosed. She is to continue with her appropriate diet as tolerated. I have also ordered repeat laboratory studies for the morning. I do think at this time the patient is not safe to go home and likely will need an assisted living center or jail facility to strengthen before going home. She and her have been adamant about not going to home although family discussion was held yesterday. The patient also has been encouraged to ambulate. 09/28/2020 The patient is a 85-year-old lady who is doing somewhat better today. She is not on supplemental oxygen. The patient was started on antiviral medication with monoclonal antibodies in the emergency department. We will monitor her renal infection. The patient's vital signs will continue to be monitored and if oxygen is necessary this will be restarted to keep her saturations around 92%. Patient is also having a positive urine culture for pansensitive E. coli and she has been on p.o. Keflex as a part of the treatment. The patient also has been recommended for placement at assisted living center and this will likely happen in 2 to 3 days. The patient also has been encouraged to ambulate. Repeat laboratory studies have been ordered. Note: The patient has been retained longer than 96 hours in order to complete treatment and to await placement. - Plan Plan:: I have seen and evaluated the patient independent of Mihir Amador PA-C. I have reviewed and agree with the plan of care as outlined for this patient by him. I have discussed the case with Mihir. The patient at this time is not a safe discharge to home and would be more appropriate for an assisted living center. Please see orders.
[2020-09-28] MEDS: Lisinopril 20 MG Tab PO SCH (09:22)
[2020-09-28] MEDS: Metoprolol Succinate 50 MG Tab.ER PO SCH (09:22)
[2020-09-28] MEDS: Cephalexin 500 MG Cap PO SCH ×2 (09:22→21:01)
[2020-09-28] MEDS: Aspirin 81 MG Tab.Chew PO SCH (09:23)
[2020-09-28] MEDS: Furosemide 20 MG Tab PO SCH (09:23)
[2020-09-28] MEDS: Cholecalciferol (Vitamin D3) 25 MCG Tab PO SCH (09:23)
[2020-09-28] MEDS: amLODIPine 5 MG Tab PO SCH (09:23)
[2020-09-28] MEDS: Enoxaparin 30 MG/0.3 ML Syringe SUBCUT SCH (09:23)
[2020-09-28] MEDS: Latanoprost 0.005% Ophth Soln 2.5 ML Bottle EYEBOTH SCH (21:01)
[2020-09-29] MEDS: Levothyroxine 75 MCG Tab PO SCH (06:21)
[2020-09-29] MEDS: Aspirin 81 MG Tab.Chew PO SCH (08:44)
[2020-09-29] MEDS: Cholecalciferol (Vitamin D3) 25 MCG Tab PO SCH (08:44)
[2020-09-29] MEDS: Cephalexin 500 MG Cap PO SCH ×2 (08:45→20:16)
[2020-09-29] MEDS: Metoprolol Succinate 50 MG Tab.ER PO SCH (08:45)
[2020-09-29] MEDS: Furosemide 20 MG Tab PO SCH (08:46)
[2020-09-29] MEDS: Lisinopril 20 MG Tab PO SCH (08:46)
[2020-09-29] MEDS: Enoxaparin 30 MG/0.3 ML Syringe SUBCUT SCH (08:47)
[2020-09-29] MEDS: amLODIPine 5 MG Tab PO SCH (08:47)
--- NOTE | 2020-09-29 12:16 | PCM.PN ---
- General Info Date of Service: 09/29/20 Admission Dx/Problem (Free Text): The patient was admitted for Covid pneumonia. Subjective Update: The patient is an 85-year-old lady who was admitted to hospitalization on September 24, 2020 due to COVID-19 infection. Patient today says that she is doing well. She has been tolerating her diabetic diet. She has no complaints today. She has denied any pain. The patient is not on supplemental oxygen. Functional Status: Reports: Pain Controlled, Tolerating Diet - Review of Systems General: Reports: Weakness, Fatigue HEENT: Reports: No Symptoms Pulmonary: Reports: Cough Cardiovascular: Reports: No Symptoms Gastrointestinal: Reports: No Symptoms Genitourinary: Reports: No Symptoms Musculoskeletal: Reports: No Symptoms Skin: Reports: No Symptoms Neurological: Reports: No Symptoms Psychiatric: Reports: No Symptoms - Patient Data Vitals - Most Recent: Last Vital Signs Temp 36.4 C 09/29/20 11:10 Pulse 60 09/29/20 11:10 Resp 18 09/29/20 11:10 BP 121/59 L 09/29/20 11:10 Pulse Ox 93 L 09/29/20 11:10 Weight - Most Recent: 76.975 kg I&O - Last 24 Hours: Intake & Output 09/28/20 09/29/20 09/29/20 22:59 06:59 14:59 Intake Total 1140 300 480 Output Total 850 500 Balance 290 -200 480 Lab Results Last 24 Hours: Laboratory Results - last 24 hr 09/28/20 09/28/20 09/29/20 Range/Units 16:19 19:54 06:28 POC Glucose 128 H 256 H 137 H (83-110) mg/dL Tod Results Last 24 Hours: Microbiology 09/24/20 15:46 Aerobic Blood Culture - Preliminary Blood - Venous - Lab Draw NO GROWTH AFTER 4 DAYS Anaerobic Blood Culture - Final 09/24/20 15:37 Aerobic Blood Culture - Preliminary Blood - Venous NO GROWTH AFTER 4 DAYS Anaerobic Blood Culture - Preliminary NO GROWTH AFTER 4 DAYS Med Orders - Current: Current Medications Acetaminophen (Tylenol) 650 mg PO Q4H PRN PRN Reason: Pain (Mild 1-3)/fever Albuterol (Proventil Hfa) 0 gm INH Q4H PRN PRN Reason: SOB/Wheezing Amlodipine Besylate (Norvasc) 5 mg PO DAILY [facility] Last Admin: 09/29/20 08:47 Dose: 5 mg Documented by: Aspirin (Aspirin) 81 mg PO DAILY [facility] Last Admin: 09/29/20 08:44 Dose: 81 mg Documented by: Cephalexin (Keflex) 500 mg PO Q12H [facility] Last Admin: 09/29/20 08:45 Dose: 500 mg Documented by: Cholecalciferol (Vitamin D3) 50 mcg PO DAILY [facility] Last Admin: 09/29/20 08:44 Dose: 50 mcg Documented by: Diphenhydramine HCl (Benadryl) 50 mg IVPUSH ONETIME PRN PRN Reason: hypersensitivity reaction Enoxaparin Sodium (Lovenox) 30 mg SUBCUT DAILY [facility] Last Admin: 09/29/20 08:47 Dose: 30 mg Documented by: Famotidine (Pepcid) 20 mg IVPUSH ONETIME PRN PRN Reason: hypersensitivity reaction Furosemide (Lasix) 20 mg PO DAILY [facility] Last Admin: 09/29/20 08:46 Dose: 20 mg Documented by: Insulin Human Lispro (Humalog) 0 unit SUBCUT QIDACANDBED [facility]; Protocol Last Admin: 09/29/20 11:29 Dose: 1 units Documented by: Latanoprost (Xalatan 0.005% Ophth Soln) 0 ml EYEBOTH BEDTIME [facility] Last Admin: 09/28/20 21:01 Dose: 1 drop Documented by: Levothyroxine Sodium (Levothyroxine) 75 mcg PO ACBRK [facility] Last Admin: 09/29/20 06:21 Dose: 75 mcg Documented by: Lidocaine HCl (Lmx 4 Cream With Tegaderm) 1 each TOP Q6H PRN PRN Reason: Prior to accessing port Lisinopril (Prinivil) 40 mg PO DAILY [facility] Last Admin: 09/29/20 08:46 Dose: 40 mg Documented by: Methylprednisolone Sodium Succinate (Solu-Medrol) 125 mg IVPUSH ONETIME PRN PRN Reason: hypersensitivity reaction Metoprolol Succinate (Toprol Xl) 200 mg PO DAILY [facility] Last Admin: 09/29/20 08:45 Dose: 200 mg Documented by: Ondansetron HCl (Zofran) 4 mg IV Q6H PRN PRN Reason: Nausea/Vomiting Last Admin: 09/25/20 17:39 Dose: 4 mg Documented by: Sodium Chloride (Saline Flush) 30 ml FLUSH ASDIRECTED [facility] Last Admin: 09/24/20 13:45 Dose: 30 ml Documented by: Tramadol HCl (Ultram) 50 mg PO Q6H PRN PRN Reason: Pain Discontinued Medications Azithromycin (Zithromax) 500 mg PO Q24H [facility] Stop: 09/26/20 16:01 Last Admin: 09/26/20 15:10 Dose: 500 mg Documented by: Cephalexin (Keflex) 500 mg PO ONETIME ONE Stop: 09/26/20 19:01 Last Admin: 09/26/20 18:52 Dose: 500 mg Documented by: Enoxaparin Sodium (Lovenox) 40 mg SUBCUT DAILY [facility] Epinephrine HCl (Adrenalin) 0.3 mg IM ONETIME ONE Stop: 09/24/20 11:36 Last Admin: 09/24/20 15:18 Dose: Not Given Documented by: Furosemide (Lasix) 40 mg IVPUSH NOW ONE Stop: 09/24/20 12:46 Last Admin: 09/24/20 13:50 Dose: 40 mg Documented by: Dextrose/Sodium Chloride (Dextrose 5%-Normal Saline) 1,000 mls @ 150 mls/hr IV ASDIRECTED [facility] Last Admin: 09/24/20 10:02 Dose: 150 mls/hr Documented by: Non-Formulary Medication 1,200 mg/ Non-Formulary Medication 1,200 mg/ Sodium Chloride 250 mls @ 250 mls/hr IV ONETIME ONE Stop: 09/24/20 12:34 Last Admin: 09/24/20 15:19 Dose: Not Given Documented by: Non-Formulary Medication 1,200 mg/ Non-Formulary Medication 1,200 mg/ Sodium Chloride 250 mls @ 250 mls/hr IV ONETIME ONE Stop: 09/24/20 13:29 Last Admin: 09/24/20 12:25 Dose: 250 mls/hr Documented by: Ceftriaxone Sodium 2 gm/ (Sodium Chloride) 100 mls @ 200 mls/hr IV Q24H [facility] Stop: 09/28/20 16:29 Last Admin: 09/25/20 15:19 Dose: 200 mls/hr Documented by: Magnesium Sulfate (Magnesium Sulfate In Water Premix) 2 gm in 50 mls @ 25 mls/hr IV ONETIME ONE Stop: 09/25/20 09:59 Last Admin: 09/25/20 07:43 Dose: 25 mls/hr Documented by: Potassium Chloride (Klor-Con M20) 40 meq PO BID [facility] Stop: 09/25/20 21:01 Last Admin: 09/25/20 21:22 Dose: 40 meq Documented by: - Exam Quality Assessment: DVT Prophylaxis. No: Supplemental Oxygen General: Alert, Oriented, Cooperative HEENT: Pupils Equal, Pupils Reactive, EOMI Neck: Supple, Trachea Midline Lungs: Normal Respiratory Effort, Rales (Left lower lobe) Cardiovascular: Regular Rate, Regular Rhythm GI/Abdominal Exam: Normal Bowel Sounds, Soft, No Distention (Female) Exam: Deferred Back Exam: Normal Inspection (Age-appropriate), Full Range of Motion Extremities: Normal Inspection, No Pedal Edema Skin: Warm, Dry, Intact Neurological: No New Focal Deficit Psy/Mental Status: Alert, Normal Affect, Normal Mood Sepsis Event Note - Evaluation Sepsis Screening Result: No Definite Risk - Focused Exam Vital Signs: Vital Signs Temp Pulse Pulse Resp BP Pulse Ox 09/29/20 11:10 36.4 C 60 18 121/59 L 93 L 09/29/20 08:47 126/63 09/29/20 08:46 126/63 09/29/20 08:45 64 126/63 09/29/20 08:41 64 18 126/63 94 L 09/29/20 07:28 36.4 C 65 18 122/73 97 09/29/20 06:20 36.6 C 131/78 09/29/20 04:30 64 94 L - Problem List & Annotations (1) UTI (urinary tract infection) SNOMED Code(s): 53316785 Code(s): N39.0 - URINARY TRACT INFECTION, SITE NOT SPECIFIED Status: Acute Priority: High Current Visit: Yes Qualifiers: Urinary tract infection type: acute cystitis Hematuria presence: without hematuria Qualified Code(s): N30.00 - Acute cystitis without hematuria (2) Pneumonia SNOMED Code(s): 344334468 Code(s): J18.9 - PNEUMONIA, UNSPECIFIED ORGANISM Status: Acute Priority: High Current Visit: Yes Qualifiers: Pneumonia type: due to unspecified organism Laterality: right Lung location: upper lobe of lung Qualified Code(s): J18.9 - Pneumonia, unspecified organism (3) COVID-19 determined by clinical diagnostic criteria SNOMED Code(s): 380653020, 225940813 Code(s): U07.1 - COVID-19 Status: Acute Priority: High Current Visit: Yes (4) Chronic renal insufficiency, stage III (moderate) SNOMED Code(s): 996788350 Code(s): N18.30 - CHRONIC KIDNEY DISEASE, STAGE 3 UNSPECIFIED Status: Acute Priority: High Current Visit: Yes Qualifiers: Chronic kidney disease stage 3 subtype: stage 3b (GFR 30-44) Qualified Code(s): N18.32 - Chronic kidney disease, stage 3b (5) Physical deconditioning SNOMED Code(s): 91168229070536 Code(s): R53.81 - OTHER MALAISE Status: Acute Priority: Medium Current Visit: Yes - Problem List Review Problem List Initiated/Reviewed/Updated: Yes - My Orders Last 24 Hours: My Active Orders 09/29/20 10:48 Communication Order [RC] DAILY - Assessment Assessment:: Assessment - Day of admission - 09/24/2020 * 85 yo female presents to ED via [facility] with concerns over COVID like symptoms * Reports fever, chills, loss of taste and smell, fatigue, nonproductive cough, myalgias and weakness * is also brought to ED with similar symptoms * Reports symptom onset as WednesdaySeptember 18 * Reports no solid intake for 4 days * History of lung cancer, hld, htn, pacemaker, fibromyalgia, Type II DM, hypothyroidism, vitamin D deficiency, thyroid nodule, MRSA * 12-lead EKG in ED shows atrial placed rhythm at 60 BPM with Q-waves in V1 and near Q-waves in V2-V3. * CXR shows parenchymal density within right upper chest. Treated lung cancer vs. metastatic disease vs PNA * Several nodular densities with in right chest also noted raising possibility of metastatic disease * Labs: * WBC 4.88 * Hgb 15.1 * Plt 140 * Neutrophils 68.4% * INR 0.94 * Sodium 137 * Potassium 3.5 * BUN 24 * Creatinine 1.5 * GFR 33 * Glucose 150 * Magnesium 1.9 * Bilirubin 0.8 * AST 107, ALT 223, Alk phos 60 * LDH 335 * CK-MB <0.5 * Troponin 0.022 * CRP 1.1 * Albumin 3.2 * D-Dimer 0.76 * Ferritin 580 * Lactic acid 1.2 * Pro-BNP 1077 * SARS-CoV-2 RNA positive * UA: Cloudy, 2+ protein, Trace-lysed occult blood, 2+ luke esterase, 40-50 WBC, Many bacteria * Given 40mg Lasix * Original plan was discharge home so patient given Regeneron in ED * Found to be very weak and decreasing saturations with UTI, will therefor be admitted to [facility] inpatient. 09/25/2020 * Reports she feels much better today * Working with PT/OT * Required 1-2L of oxygen overnight but weaned today * Labs: * WBC 5.31 * Platelet 120 * Potassium 3.2 * BUN 25 * Creatinine 1.4 * GFR 36 * CRP 2.1 * A1c 6.6 * Vitamin D 52.2 * TSH 3.678 * UA growing gram negative rods * Blood cultures negative thus far * Continue Rocephin and azithromycin * Supplemented magnesium and potassium * Await urine culture * SW working on placement 09/26/2020 * Reports she continues to improve * Doing well with therapies * Off of oxygen today * UA shows lares sensitive E. Coli * Blood cultures remain negative * Patient and adamant about not going to [facility] or SNF * Labs today: * WBC 3.92 * HGB 14.4 * Plt 120 * Neutrophils 2.17 * D-Dimer 0.97 * Magnesium 2.3 * CRP 2.6 * Sodium 133 * Potassium 4.5 * BUN 37 * Creatinine 1.6 * GFR 31 * AST51, ALT 130, Alk phos 50 * CRP 2.6 * Likely discharge in next 24-48 hours * Switch from IV Rocephin to PO Keflex 09/27/2020 The patient is a chronically ill 85-year-old lady who is doing much better today. She is not on supplemental oxygen. We will continue with COVID-19 pneumonia treatment. She was also transitioned from Rocephin to p.o. Keflex as her urine cultures grew pansensitive E. coli. The patient will have her medications renally dosed. She is to continue with her appropriate diet as tolerated. I have also ordered repeat laboratory studies for the morning. I do think at this time the patient is not safe to go home and likely will need an assisted living center or half-way facility to strengthen before going home. She and her have been adamant about not going to home although family discussion was held yesterday. The patient also has been encouraged to ambulate. 09/28/2020 The patient is a 85-year-old lady who is doing somewhat better today. She is not on supplemental oxygen. The patient was started on antiviral medication with monoclonal antibodies in the emergency department. We will monitor her renal infection. The patient's vital signs will continue to be monitored and if oxygen is necessary this will be restarted to keep her saturations around 92%. Patient is also having a positive urine culture for pansensitive E. coli and she has been on p.o. Keflex as a part of the treatment. The patient also has been recommended for placement at assisted living center and this will likely happen in 2 to 3 days. The patient also has been encouraged to ambulate. Repeat laboratory studies have been ordered. Note: The patient has been retained longer than 96 hours in order to complete treatment and to await placement. 09/29/2020 The patient is an 85-year-old lady who is doing somewhat better today. She has not on oxygen. She has no other complaints today. The patient does have chronic renal failure and I have ordered repeat laboratory studies to monitor her renal function. Patient also will be continued on cephalexin for her UTI for at least 1 more day. Patient's urine cultures have grown out pansensitive E. coli. She should be appropriate for discharge to assisted living center tomorrow. I do not at this time feel that the patient is a safe discharge to home. I think that she has become resigned to the fact that she needs further care before she can go home. Repeat laboratory studies have been ordered for the morning. - Plan Plan:: I have seen and evaluated the patient independent of Mihir Amador PA-C. I have reviewed and agree with the plan of care as outlined for this patient by him. I have discussed the case with Mihir. The patient at this time is not a safe discharge to home and would be more appropriate for an assisted living center. Please see orders.
[2020-09-29] MEDS: Latanoprost 0.005% Ophth Soln 2.5 ML Bottle EYEBOTH SCH (20:16)
[2020-09-30] MEDS: Levothyroxine 75 MCG Tab PO SCH (06:18)
[2020-09-30 08:31] VITALS: BP 122/77; PULSE 70
[2020-09-30] MEDS: Metoprolol Succinate 50 MG Tab.ER PO SCH (08:33)
[2020-09-30] MEDS: Lisinopril 20 MG Tab PO SCH (08:35)
[2020-09-30] MEDS: Aspirin 81 MG Tab.Chew PO SCH (08:35)
[2020-09-30] MEDS: Cephalexin 500 MG Cap PO SCH (08:36)
[2020-09-30] MEDS: amLODIPine 5 MG Tab PO SCH (08:37)
[2020-09-30] MEDS: Furosemide 20 MG Tab PO SCH (08:38)
[2020-09-30] MEDS: Cholecalciferol (Vitamin D3) 25 MCG Tab PO SCH (08:38)
[2020-09-30] MEDS: Enoxaparin 30 MG/0.3 ML Syringe SUBCUT SCH (08:39)
--- NOTE | 2020-09-30 15:27 | PCM.DCSUM1 ---
Discharge Summary - Hospital Course HPI Initial Comments: This is an 85 yo female who presented to ED on 09/24/2020 via [facility] [place] with concerns over COVID-19 symptoms. Patient reportedly has fever and chills with loss of taste and smell, fatigue, nonproductive cough, generalized myalgias and weakness. Of note her was also brought in via ambulance for similar symptoms. Per the patient symptoms started on September 18. She reports she has not had anything solid for approximately 4 da ys but has been able to take in some fluids. Patient has a history of right lung cancer which was treated with radiation and she believes a lobectomy. She is noted to have a recurrence in her left lung for the past [address] scan showed a large lymph node and she was supposed to follow-up with Dr. Cortes, oncology, today for a PET scan. Denies any nausea or diarrhea. Reports dyspnea at rest and worse with tomas. Saturations on arrival are noted to be 96-97% on room air. In the ED temp was 35.8 Celsius. Pulse 60. Respirations 16. Blood pressure 150/75. Pulse ox 97%. Twelve-lead EKG is obtained showing a atrial paced rhythm at 60 bpm. 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 Associated poor R wave progression and decreased voltage in limb leads is noted. There is T wave flattening in aVF. Labs are obtained with a WBC of 4.88. Hemoglobin 15.1. Hematocrit 45.5. Platelets are low at 140. Neutrophils are normal at 60.4. INR is 0.94. Sodium 137. Potassium 3.5. Chloride 101. Carbon dioxide 26. Anion gap is 13.5. BUN is 24. Creatinine 1.5. GFR is 33. Glucose is high at 150. Calcium 8.7. Magnesium 1.9. Bilirubin 0.8. AST is 107, ALT 223, alkaline phosphatase 60. LDH is 335. CK-MB is less than 0.5. Troponin 0 0.022. CRP is 1.1. Albumin is 3.2. ESR is 14. D-dimer 0.76. Ferritin 580. Lactic acid is 1.2. proBNP is 1077. SARS-CoV-2 is positive. UA is positive with cloudy appearance, 2+ protein, trace lysed occult blood, 2+ leukocyte esterase 30-40 WBCs, and many bacteria. Urine culture is pending. Chest x-rays obtained showing a parenchymal density within the right upper chest as in interval change from prior study. Uncertain if this represents treated lung cancer or metastatic disease or represents an area of pneumonia. Several nodular densities within the right chest arise in the possibility of metastatic disease are also noted. Other findings which are stable are also observed. As the patient was not requiring oxygen but was displaying Covid symptoms decision was made to offer the patient Regeneron and she agreed. She was given 40 mg IV push Lasix as well. She carries a history of HLD, hypertension, atrial pacemaker, right-sided lung cancer in the past which was treated and now left lower lobe lung cancer, chronic renal insufficiency, contrast dye-induced neuropathy, arthritis, chronic back pain, fibromyalgia, type II DM which is diet controlled, hypothyroidism, vitamin D deficiency, goiter, thyroid nodule. She has a history of MRSA. She was never a smoker. Her primary care provider is Dr. Perkins. Her oncologist is Dr. Cortes Diagnosis: Stroke: No - Discharge Data Discharge Date: 09/30/20 (Admit date: 09/24/2020) Discharge Disposition: DC/Tfer to Other 70 Condition: Good - Referral to Home Health Primary Care Physician: Mushtaq Andrews MD - Discharge Diagnosis/Problem(s) (1) COVID-19 determined by clinical diagnostic criteria SNOMED Code(s): 603428874, 171831582 ICD Code: U07.1 - COVID-19 Status: Acute Priority: High (2) Carcinoma, lung SNOMED Code(s): 195518073 ICD Code: C34.90 - MALIGNANT NEOPLASM OF UNSP PART OF UNSP BRONCHUS OR LUNG Status: Chronic Priority: High Qualifiers: Laterality: left Qualified Code(s): C34.92 - Malignant neoplasm of unspecified part of left bronchus or lung (3) Chronic renal insufficiency, stage III (moderate) SNOMED Code(s): 876114413 ICD Code: N18.30 - CHRONIC KIDNEY DISEASE, STAGE 3 UNSPECIFIED Status: Acute Priority: High Qualifiers: Chronic kidney disease stage 3 subtype: stage 3b (GFR 30-44) Qualified Code(s): N18.32 - Chronic kidney disease, stage 3b (4) Diabetes mellitus SNOMED Code(s): 28183649 ICD Code: E11.9 - TYPE 2 DIABETES MELLITUS WITHOUT COMPLICATIONS Status: Chronic Priority: Low Qualifiers: Diabetes mellitus type: type 2 Diabetes mellitus assisted insulin use: without assisted use Diabetes mellitus complication status: with other specified complication Qualified Code(s): E11.69 - Type 2 diabetes mellitus with other specified complication (5) Fibromyalgia SNOMED Code(s): 860600139 ICD Code: M79.7 - FIBROMYALGIA Status: Chronic Priority: Low (6) Gastroesophageal reflux disease SNOMED Code(s): 035149951 ICD Code: K21.9 - GASTRO-ESOPHAGEAL REFLUX DISEASE WITHOUT ESOPHAGITIS Status: Chronic Priority: Low Qualifiers: Esophagitis presence: esophagitis presence not specified Qualified Code(s): K21.9 - Gastro-esophageal reflux disease without esophagitis (7) HLD (hyperlipidemia) SNOMED Code(s): 50658384 ICD Code: E78.5 - HYPERLIPIDEMIA, UNSPECIFIED Status: Chronic Priority: Low Qualifiers: Hyperlipidemia type: unspecified Qualified Code(s): E78.5 - Hyperlipidemia, unspecified (8) History of cardiac pacemaker SNOMED Code(s): 897627053 ICD Code: Z95.0 - PRESENCE OF CARDIAC PACEMAKER Status: Chronic Priority: Low (9) Hypertension SNOMED Code(s): 74892086 ICD Code: I10 - ESSENTIAL (PRIMARY) HYPERTENSION Status: Chronic Genet ority: Low Qualifiers: Hypertension type: unspecified Qualified Code(s): I10 - Essential (primary) hypertension (10) Hypothyroidism SNOMED Code(s): 52386919 ICD Code: E03.9 - HYPOTHYROIDISM, UNSPECIFIED Status: Chronic Priority: Low Qualifiers: Hypothyroidism type: unspecified Qualified Code(s): E03.9 - Hypothyroidism, unspecified (11) Failure to thrive SNOMED Code(s): 27084826 ICD Code: KIR3955 - Status: Acute Priority: High Qualifiers: Failure to thrive age range: in adult Qualified Code(s): R62.7 - Adult failure to thrive (12) Generalized weakness SNOMED Code(s): 49542503 ICD Code: R53.1 - WEAKNESS Status: Acute Priority: High (13) UTI (urinary tract infection) SNOMED Code(s): 93135702 ICD Code: N39.0 - URINARY TRACT INFECTION, SITE NOT SPECIFIED Status: Acute Priority: High Qualifiers: Urinary tract infection type: acute cystitis Hematuria presence: without hematuria Qualified Code(s): N30.00 - Acute cystitis without hematuria (14) Pneumonia SNOMED Code(s): 437973799 ICD Code: J18.9 - PNEUMONIA, UNSPECIFIED ORGANISM Status: Acute Priority: High Qualifiers: Pneumonia type: due to unspecified organism Laterality: right Lung location: upper lobe of lung Qualified Code(s): J18.9 - Pneumonia, unspecified organism (15) Hypokalemia SNOMED Code(s): 08002036 ICD Code: E87.6 - HYPOKALEMIA Status: Resolved Priority: High (16) Hypomagnesemia SNOMED Code(s): 889107888 ICD Code: E83.42 - HYPOMAGNESEMIA Status: Resolved Priority: High - Patient Summary/Data Consults: Consultations 09/24/20 14:30 Consult to Case Management/Top Installer [CONS] Routine Consult to Spiritual Care [CONS] Routine OT Evaluation and Treatment [CONS] Routine PT Evaluation and Treatment [CONS] Routine Respiratory Care Assess and Treatment [CONS] Routine 09/24/20 15:56 Consult to Hotel Sales Manager [CONS] Routine Labs Pending at D/C: None Recommended Follow-up Testing/Procedures: Follow-up with primary care provider within 7-10 days of discharge, sooner if needed. Follow-up with oncology as scheduled. Hospital Course: Patient is an 85-year-old female who presented to the ED with concerns over Covid-like symptoms. Her was also brought in at the same time with similar symptoms. Patient reports symptoms began on September 18 and she has not had any solid intake for 4 days. She does have a history of lung cancer along with type II DM, HLD, HTN, pacemaker, fibromyalgia, hypothyroidism, vitamin D deficiency, nodule, and MRSA. Chest x-ray in the ED showed a parenchymal density within the right upper chest and was unsure if this represents treated lung cancer versus metastatic disease versus pneumonia. There are also several nodular densities noted within the right chest. Original plan was for her to be discharged home from the ED so she was given Regeneron treatment once her Covid test returned positive. Patient was reporting urinary symptoms and UA was obtained which was positive. Was also noted to be quite weak and it was deemed that she should be admitted for treatment and probable placement. She was started on IV Rocephin and p.o. azithromycin. She received 3 doses of azithromycin and Rocephin was switched to p.o. Keflex based on urine sensitivities. Electrolytes were supplemented. She did not require any supplemental oxygen. Urine culture returned pansensitive E. coli. Initially patient was quite adamant about returning home, but she was noted to be quite weak on the floor and it was quite obvious that a safe discharge home was not possible. PT/OT was working with the patient and they recommended placement at an assisted living facility. She was ultimately evaluated and accepted at [facility]. She discharged today. She was placed on 2 more days of 500 mg every 12 hour Keflex, as she received 1 dose this morning and has been renally dosed due to her kidney function. All other home medications were continued. She was directed to follow-up with her primary care provider within 7 to 10 days of discharge, sooner if needed. She was instructed to continue to utilize her incentive spirometer and Acapella for 1-2 more weeks or until symptoms resolve. She was instructed to return the emergency room should symptoms return or worsen. Recommend recheck CBC, CMP, magnesium, and consider repeat chest x-ray at next visit. She was instructed to follow-up with her oncologist as scheduled. She was discharged to [facility] today. - Patient Instructions Diet: Diabetic Diet Activity: As Tolerated Driving: Do Not Drive Notify Provider of: Fever, Increased Pain, Nausea and/or Vomiting Other/Special Instructions: Follow-up with primary care provider within 7-10 days of discharge, sooner if needed. Continue to utilize your incentive spirometer (Clear/Blue device you inhale through) and acapella (green tube you blow through) for 1-2 weeks or until symptoms resolve. You were prescribed 2 more days of antibiotics. Take this until gone until 100% gone, even if you feel 100% better. You completed your COVID-19 treatmetn while here. Nothing more will be prescribed for this. You were on isolation while here. Continue to follow the isolation directions of [facility] as they direct you. Should symptoms return or worsen contact primary care provider or return to the Emergency Department. - Discharge Plan *PRESCRIPTION DRUG MONITORING PROGRAM REVIEWED*: Not Applicable *COPY OF PRESCRIPTION DRUG MONITORING REPORT IN PATIENT TOBY: Not Applicable Prescriptions/Med Rec: cephALEXin [Keflex] 500 mg PO Q12H #3 cap Home Medications: Home Meds Levothyroxine 75 mcg PO DAILY 12/10/15 [History] Lisinopril 40 mg PO DAILY 12/10/15 [History] Furosemide [Lasix] 20 mg PO DAILY #30 tablet 03/17/16 [Rx] Latanoprost 1 drop EYEBOTH BEDTIME 10/20/16 [History] Lidocaine/Prilocaine [EMLA Crm] 1 gm TOP Q6H PRN #1 tube 11/25/16 [Rx] Prochlorperazine [Compazine] 10 mg PO QID PRN 05/03/17 [History] Psyllium Husk [Metamucil] 1 tsp PO BID 07/30/17 [History] Aspirin 81 mg PO DAILY 03/17/18 [History] traMADol [Ultram] 50 mg PO Q6H PRN 03/17/18 [History] Acetaminophen [Tylenol] 650 mg PO Q6H PRN 12/30/18 [History] Cholecalciferol (Vitamin D3) [Vitamin D3] 2,000 units PO DAILY 12/30/18 [History] Ketoconazole [Nizoral 2% Crm] 1 applic TOP BID 12/30/18 [History] Metoprolol Succinate [Toprol Xl] 200 mg PO DAILY 12/30/18 [History] Nitroglycerin [Nitrostat] 0.4 mg PO ASDIRECTED PRN 09/24/20 [History] [place]-3/DHA/Epa/Fish Oil [[place] 3 500 Softgel] 1,000 mg PO DAILY 09/24/20 [History] Ondansetron [Zofran] 4 mg PO Q6H PRN 09/24/20 [History] amLODIPine [Norvasc] 5 mg PO DAILY 09/24/20 [History] atorvaSTATin [Lipitor] 40 mg PO BEDTIME 09/24/20 [History] cephALEXin [Keflex] 500 mg PO Q12H #3 cap 09/30/20 [Rx] Oxygen Therapy Mode: Room Air Patient Handouts: COVID-19 Frequently Asked Questions, COVID-19, Urinary Tract Infection, Adult, Dxke-lw-Iows, COVID-19: How to Protect Yourself and Others - CDC, Prevent the Spread of COVID-19 if You Are Sick - [facility] Referrals: Mushtaq Andrews MD [Primary Care Provider] - 10/17/20 2:45 pm (Please follow up with Dr. Perkins on Oct 17 at 2:45. Come 15 minutes prior to the appointment to register. Please schedule an appointment sooner with a substitute provider if needed as this is the soonest appointment Dr. Perkins. ) - Discharge Summary/Plan Comment DC Time >30 min.: Yes (45 mins ) - General Info Date of Service: 09/30/20 Admission Dx/Problem (Free Text: The patient was admitted for Covid pneumonia. Functional Status: Reports: Pain Controlled, Tolerating Diet, Ambulating, Urinating, Incentive Spirometry, Other (Acapella ). Denies: New Symptoms - Review of Systems General: Reports: Weakness (improved ). Denies: Fever, Fatigue, Malaise, Chills HEENT: Reports: No Symptoms. Denies: Headaches, Sore Throat Pulmonary: Reports: Shortness of Breath, Cough. Denies: Sputum, Wheezing Cardiovascular: Reports: No Symptoms, Dyspnea on Exertion. Denies: Chest Pain, Palpitations, Edema Gastrointestinal: Reports: No Symptoms. Denies: Diarrhea, Nausea, Vomiting Genitourinary: Reports: No Symptoms. Denies: Pain Musculoskeletal: Reports: No Symptoms Skin: Reports: No Symptoms. Denies: Cyanosis Neurological: Reports: No Symptoms. Denies: Confusion, Difficulty Walking, Gait Disturbance Psychiatric: Reports: No Symptoms - Patient Data Vitals - Most Recent: Last Vital Signs Temp 98.1 F 09/30/20 07:44 Pulse 70 09/30/20 08:33 Resp 20 09/30/20 07:44 BP 122/77 09/30/20 08:37 Pulse Ox 99 09/30/20 07:44 Weight - Most Recent: 169 lb 14.4 oz I&O - Last 24 hours: Intake & Output 09/30/20 09/30/20 09/30/20 06:59 14:59 22:59 Intake Total 200 360 Output Total 750 Balance -550 360 Lab Results - Last 24 hrs: Laboratory Results - last 24 hr 09/29/20 09/29/20 09/29/20 Range/Units 11:09 16:23 20:25 WBC (3.98-10.04) K/mm3 RBC (3.98-5.22) M/mm3 Hgb (11.2-15.7) gm/dl Hct (34.1-44.9) % MCV (79.4-94.8) fl MCH (25.6-32.2) pg MCHC (32.2-35.5) g/dl RDW Std Deviation (36.4-46.3) fL Plt Count (182-369) K/mm3 MPV (9.4-12.3) fl Neut % (Auto) (34.0-71.1) % Lymph % (Auto) (19.3-51.7) % Stewart % (Auto) (4.7-12.5) % Eos % (Auto) (0.7-5.8) Baso % (Auto) (0.1-1.2) % Neut # (Auto) (1.56-6.13) K/mm3 Lymph # (Auto) (1.18-3.74) K/mm3 Stewart # (Auto) (0.24-0.36) K/mm3 Eos # (Auto) (0.04-0.36) K/mm3 Baso # (Auto) (0.01-0.08) K/mm3 Manual Slide Review Sodium (136-145) mEq/L Potassium (3.5-5.1) mEq/L Chloride (98-107) mEq/L Carbon Dioxide (21-32) mEq/L Anion Gap (5-15) BUN (7-18) mg/dL Creatinine (0.55-1.02) mg/dL Est Cr Clr Drug Dosing mL/min Estimated GFR (MDRD) (>60) mL/min BUN/Creatinine Ratio (14-18) Glucose (83-115) mg/dL POC Glucose 192 H 136 H 185 H (83-110) mg/dL Calcium (8.5-10.1) mg/dL 09/30/20 09/30/20 09/30/20 Range/Units 04:30 04:30 06:14 WBC 6.34 (3.98-10.04) K/mm3 RBC 4.55 (3.98-5.22) M/mm3 Hgb 14.4 (11.2-15.7) gm/dl Hct 44.6 (34.1-44.9) % MCV 98.0 H (79.4-94.8) fl MCH 31.6 (25.6-32.2) pg MCHC 32.3 (32.2-35.5) g/dl RDW Std Deviation 46.9 H (36.4-46.3) fL Plt Count 176 L (182-369) K/mm3 MPV 12.6 H (9.4-12.3) fl Neut % (Auto) 59.6 (34.0-71.1) % Lymph % (Auto) 22.4 (19.3-51.7) % Stewart % (Auto) 16.2 H (4.7-12.5) % Eos % (Auto) 1.4 (0.7-5.8) Baso % (Auto) 0.2 (0.1-1.2) % Neut # (Auto) 3.78 (1.56-6.13) K/mm3 Lymph # (Auto) 1.42 (1.18-3.74) K/mm3 Stewart # (Auto) 1.03 H (0.24-0.36) K/mm3 Eos # (Auto) 0.09 (0.04-0.36) K/mm3 Baso # (Auto) 0.01 (0.01-0.08) K/mm3 Manual Slide Review Abnormal smear Sodium 140 (136-145) mEq/L Potassium 4.4 (3.5-5.1) mEq/L Chloride 102 (98-107) mEq/L Carbon Dioxide 28 (21-32) mEq/L Anion Gap 14.4 (5-15) BUN 44 H (7-18) mg/dL Creatinine 1.6 H (0.55-1.02) mg/dL Est Cr Clr Drug Dosing 22.60 mL/min Estimated GFR (MDRD) 31 (>60) mL/min BUN/Creatinine Ratio 27.5 H (14-18) Glucose 133 H (83-115) mg/dL POC Glucose 145 H (83-110) mg/dL Calcium 9.7 (8.5-10.1) mg/dL [facility]ANE Results - Last 24 hrs: Microbiology 09/24/20 15:46 Aerobic Blood Culture - Preliminary Blood - Venous - Lab Draw NO GROWTH AFTER 5 DAYS Anaerobic Blood Culture - Final 09/24/20 15:37 Aerobic Blood Culture - Preliminary Blood - Venous NO GROWTH AFTER 5 DAYS Anaerobic Blood Culture - Preliminary NO GROWTH AFTER 5 DAYS Med Orders - Current: Current Medications Discontinued Medications Acetaminophen (Tylenol) 650 mg PO Q4H PRN PRN Reason: Pain (Mild 1-3)/fever Albuterol (Proventil Hfa) 0 gm INH Q4H PRN PRN Reason: SOB/Wheezing Amlodipine Besylate (Norvasc) 5 mg PO DAILY [facility] Last Admin: 09/30/20 08:37 Dose: 5 mg Documented by: Aspirin (Aspirin) 81 mg PO DAILY [facility] Last Admin: 09/30/20 08:35 Dose: 81 mg Documented by: Azithromycin (Zithromax) 500 mg PO Q24H [facility] Stop: 09/26/20 16:01 Last Admin: 09/26/20 15:10 Dose: 500 mg Documented by: Cephalexin (Keflex) 500 mg PO ONETIME ONE Stop: 09/26/20 19:01 Last Admin: 09/26/20 18:52 Dose: 500 mg Documented by: Cephalexin (Keflex) 500 mg PO Q12H [facility] Last Admin: 09/30/20 08:36 Dose: 500 mg Documented by: Cholecalciferol (Vitamin D3) 50 mcg PO DAILY [facility] Last Admin: 09/30/20 08:38 Dose: 50 mcg Documented by: Diphenhydramine HCl (Benadryl) 50 mg IVPUSH ONETIME PRN PRN Reason: hypersensitivity reaction Enoxaparin Sodium (Lovenox) 40 mg SUBCUT DAILY [facility] Enoxaparin Sodium (Lovenox) 30 mg SUBCUT DAILY [facility] Last Admin: 09/30/20 08:39 Dose: 30 mg Documented by: Epinephrine HCl (Adrenalin) 0.3 mg IM ONETIME ONE Stop: 09/24/20 11:36 Last Admin: 09/24/20 15:18 Dose: Not Given Documented by: Famotidine (Pepcid) 20 mg IVPUSH ONETIME PRN PRN Reason: hypersensitivity reaction Furosemide (Lasix) 40 mg IVPUSH NOW ONE Stop: 09/24/20 12:46 Last Admin: 09/24/20 13:50 Dose: 40 mg Documented by: Furosemide (Lasix) 20 mg PO DAILY [facility] Last Admin: 09/30/20 08:38 Dose: 20 mg Documented by: Dextrose/Sodium Chloride (Dextrose 5%-Normal Saline) 1,000 mls @ 150 mls/hr IV ASDIRECTED [facility] Last Admin: 09/24/20 10:02 Dose: 150 mls/hr Documented by: Non-Formulary Medication 1,200 mg/ Non-Formulary Medication 1,200 mg/ Sodium Chloride 250 mls @ 250 mls/hr IV ONETIME ONE Stop: 09/24/20 12:34 Last Admin: 09/24/20 15:19 Dose: Not Given Documented by: Non-Formulary Medication 1,200 mg/ Non-Formulary Medication 1,200 mg/ Sodium Chloride 250 mls @ 250 mls/hr IV ONETIME ONE Stop: 09/24/20 13:29 Last Admin: 09/24/20 12:25 Dose: 250 mls/hr Documented by: Ceftriaxone Sodium 2 gm/ (Sodium Chloride) 100 mls @ 200 mls/hr IV Q24H [facility] Stop: 09/28/20 16:29 Last Admin: 09/25/20 15:19 Dose: 200 mls/hr Documented by: Magnesium Sulfate (Magnesium Sulfate In Water Premix) 2 gm in 50 mls @ 25 mls/hr IV ONETIME ONE Stop: 09/25/20 09:59 Last Admin: 09/25/20 07:43 Dose: 25 mls/hr Documented by: Insulin Human Lispro (Humalog) 0 unit SUBCUT QIDACANDBED [facility]; Protocol Last Admin: 09/30/20 07:22 Dose: Not Given Documented by: Latanoprost (Xalatan 0.005% Ophth Soln) 0 ml EYEBOTH BEDTIME [facility] Last Admin: 09/29/20 20:16 Dose: 1 drop Documented by: Levothyroxine Sodium (Levothyroxine) 75 mcg PO ACBRK [facility] Last Admin: 09/30/20 06:18 Dose: 75 mcg Documented by: Lidocaine HCl (Lmx 4 Cream With Tegaderm) 1 each TOP Q6H PRN PRN Reason: Prior to accessing port Lisinopril (Prinivil) 40 mg PO DAILY [facility] Last Admin: 09/30/20 08:35 Dose: 40 mg Documented by: Methylprednisolone Sodium Succinate (Solu-Medrol) 125 mg IVPUSH ONETIME PRN PRN Reason: hypersensitivity reaction Metoprolol Succinate (Toprol Xl) 200 mg PO DAILY [facility] Last Admin: 09/30/20 08:33 Dose: 200 mg Documented by: Ondansetron HCl (Zofran) 4 mg IV Q6H PRN PRN Reason: Nausea/Vomiting Last Admin: 09/25/20 17:39 Dose: 4 mg Documented by: Potassium Chloride (Klor-Con M20) 40 meq PO BID [facility] Stop: 09/25/20 21:01 Last Admin: 09/25/20 21:22 Dose: 40 meq Documented by: Sodium Chloride (Saline Flush) 30 ml FLUSH ASDIRECTED [facility] Last Admin: 09/24/20 13:45 Dose: 30 ml Documented by: Tramadol HCl (Ultram) 50 mg PO Q6H PRN PRN Reason: Pain - Exam Quality Assessment: Reports: DVT Prophylaxis. Denies: Supplemental Oxygen General: Reports: Alert, Oriented, Cooperative, No Acute Distress HEENT: Reports: Pupils Equal, Pupils Reactive, Mucous Membr. Moist/Tome Neck: Reports: Supple, Trachea Midline Lungs: Reports: Normal Respiratory Effort, Decreased Breath Sounds, Rales (LLL) Cardiovascular: Reports: Regular Rate, Regular Rhythm GI/Abdominal Exam: Normal Bowel Sounds, Soft, Non-Tender, No Distention (Female) Exam: Deferred Rectal (Female) Exam: Deferred Extremities: Normal Inspection, Normal Range of Motion, No Pedal Edema Skin: Reports: Warm, Dry, Intact Neurological: Reports: No New Focal Deficit Psy/Mental Status: Reports: Alert, Normal Affect, Normal Mood
== END 2020-09-30 11:08 | disposition other institution (70) | DRG 177 ==
LOC: JD.ED 08:54 → JD.MS 14:08
PROVIDERS: ADMIT Family Medicine; ATTEND Family Medicine
PROC: XW033G6 Introduction of REGN-COV2 Monoclonal Antibody into Peripheral Vein, Percutaneous Approach, New Technology Group 6 (ICD-10-PCS; principal; 2020-09-24)
PROC: 8E0ZXY6 Isolation (ICD-10-PCS; principal; 2020-09-24)
DX: U07.1 COVID-19 (principal); R09.02 Hypoxemia; R74.01 Elevation of levels of liver transaminase levels; N39.0 Urinary tract infection, site not specified; J12.82 Pneumonia due to coronavirus disease 2019; I13.0 Hypertensive heart and chronic kidney disease with heart failure and stage 1 through stage 4 chronic kidney disease, or unspecified chronic kidney disease; I50.32 Chronic diastolic (congestive) heart failure; C34.92 Malignant neoplasm of unspecified part of left bronchus or lung; N30.00 Acute cystitis without hematuria; Z66 Do not resuscitate; E78.5 Hyperlipidemia, unspecified; M19.90 Unspecified osteoarthritis, unspecified site; G89.29 Other chronic pain; M54.9 Dorsalgia, unspecified; M79.7 Fibromyalgia; E11.22 Type 2 diabetes mellitus with diabetic chronic kidney disease; E03.9 Hypothyroidism, unspecified; E55.9 Vitamin D deficiency, unspecified; E04.9 Nontoxic goiter, unspecified; N18.32 Chronic kidney disease, stage 3b; Z96.642 Presence of left artificial hip joint; R62.7 Adult failure to thrive; E87.6 Hypokalemia; H54.7 Unspecified visual loss; E78.00 Pure hypercholesterolemia, unspecified; E83.42 Hypomagnesemia; Z79.890 Hormone replacement therapy; Z79.899 Other long term (current) drug therapy; Z79.82 Long term (current) use of aspirin; Z88.5 Allergy status to narcotic agent; Z86.14 Personal history of Methicillin resistant Staphylococcus aureus infection; Z95.0 Presence of cardiac pacemaker; Z88.8 Allergy status to other drugs, medicaments and biological substances; Z88.1 Allergy status to other antibiotic agents; Z88.2 Allergy status to sulfonamides; Z98.49 Cataract extraction status, unspecified eye; Z90.49 Acquired absence of other specified parts of digestive tract
CPT/HCPCS: 36415; 71045; 80053; 81001; 82306; 82553; 82728; 83036; 83605; 83615; 83735; 83880; 84443; 84484; 85025; 85379; 85610; 85652; 85730; 86140; 87086; 87088; 87186; 93005; 96374; 99285; J1940; J7042; J7050; M0243; U0002; 80048; 82962; 87040; 87070; 93010; 94667; 94762; 97110-GP; 97116-GP; 97162-GP; 97165-GO; 97530-GO; A9270-GY; J0696; J1650; J1815-GY; J2405; J3475; Q0243

== ENCOUNTER 2021-03-08 04:07 | Observation (INO) | payer MEDICARE, BC ==
--- NOTE | 2021-03-08 04:34 | EDM.PDOC ---
ED HPI GENERAL MEDICAL PROBLEM - General Chief Complaint: Respiratory Problem Stated Complaint: [facility] Time Seen by Provider: 03/08/21 04:20 - History of Present Illness INITIAL COMMENTS - FREE TEXT/NARRATIVE: 85-year-old female brought in by EMS with chief complaint of shortness of breath. This evening patient became quite short of breath and developed some chest pain. The patient is currently treated for lung cancer she just had her last round of chemotherapy. Her pain is worse when she is coughing. Patient also is complains of fevers and chills. She is coughing little bit more than normal. She has had a history of Covid in the past. She coughs up a small amount of sputum usually whitish but this is not very often. Patient denies any episode where she was choking on her food. - Related Data Allergies Allergy/AdvReac Type Severity Reaction Status Date / Time codeine Allergy Swollen Verified 03/08/21 04:12 Tongue duloxetine [From Cymbalta] Allergy Difficulty Verified 03/08/21 04:12 Breathing hydrocodone Allergy Swollen Verified 03/08/21 04:12 Tongue sulfamethoxazole Allergy Swelling Verified 03/08/21 04:12 [From Bactrim] trimethoprim [From Bactrim] Allergy Swelling Verified 03/08/21 04:12 fentanyl AdvReac Chest Pain Verified 03/08/21 04:12 hydromorphone [From Dilaudid] AdvReac Chills Verified 03/08/21 04:12 Home Meds: Home Meds Levothyroxine 75 mcg PO DAILY 12/10/15 [History] Lisinopril 40 mg PO DAILY 12/10/15 [History] Furosemide [Lasix] 20 mg PO DAILY #30 tablet 03/17/16 [Rx] Latanoprost 1 drop EYEBOTH BEDTIME 10/20/16 [History] Prochlorperazine [Compazine] 10 mg PO QID PRN 05/03/17 [History] Psyllium Husk [Metamucil] 1 tsp PO BID 07/30/17 [History] Aspirin 81 mg PO DAILY 03/17/18 [History] traMADol [Ultram] 50 mg PO Q6H PRN 03/17/18 [History] Acetaminophen [Tylenol] 650 mg PO Q6H PRN 12/30/18 [History] Cholecalciferol (Vitamin D3) [Vitamin D3] 2,000 units PO DAILY 12/30/18 [History] Ketoconazole [Nizoral 2% Crm] 1 applic TOP BID 12/30/18 [History] Metoprolol Succinate [Toprol Xl] 200 mg PO DAILY 12/30/18 [History] Nitroglycerin [Nitrostat] 0.4 mg PO ASDIRECTED PRN 09/24/20 [History] Independence-3/DHA/Epa/Fish Oil [Independence 3 500 Softgel] 1,000 mg PO DAILY 09/24/20 [History] Ondansetron [Zofran] 4 mg PO Q6H PRN 09/24/20 [History] amLODIPine [Norvasc] 5 mg PO DAILY 09/24/20 [History] atorvaSTATin [Lipitor] 40 mg PO BEDTIME 09/24/20 [History] cephALEXin [Keflex] 500 mg PO Q12H #3 cap 09/30/20 [Rx] Folic Acid 1 mg PO DAILY 03/08/21 [History] Insulin Glarg,Human.Rec.Analog [Lantus] 13 unit SUBCUT DAILY 03/08/21 [History] OLANZapine [ZyPREXA] 10 mg PO ASDIRECTED PRN 03/08/21 [History] Past Medical History HEENT History: Reports: Cataract, Glaucoma, Impaired Vision Other HEENT History: Wears glasses Cardiovascular History: Reports: High Cholesterol, Hypertension, Pacemaker Other Cardiovascular History: chest pain/pressure, edema Respiratory History: Reports: SOB Other Respiratory History: Lung Cancer, Pulmonary nodule, Dyspnea on exertion. Patient reports right lower lobe lobectomy she believes 5 years ago. Followed with postoperative radiation to the right lung field. Currently has left lower lobe lung cancer with recent CT done showing increased nodularity. 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 - Infectious Disease History Infectious Disease History: Reports: Chicken Pox, Measles, MRSA, Mumps, Novel Coronavirus, Shingles - Past Surgical History HEENT Surgical History: Reports: Cataract Surgery Cardiovascular Surgical History: Reports: Pacer Respiratory Surgical History: Reports: Thoracotomy Other Respiratory Surgeries/Procedures: Bronchoscopy,Thoracotomy with RLL lobectomy GI Surgical History: Reports: Appendectomy, Colonoscopy Female Surgical History: Reports: Hysterectomy, Salpingo-Oophorectomy Endocrine Surgical History: Reports: Thyroidectomy Neurological Surgical History: Reports: None Musculoskeletal Surgical History: Reports: Hip Replacement Other Musculoskeletal Surgeries/Procedures:: Left total hip replacement Oncologic Surgical History: Reports: Lobectomy, Other (See Below) Other Oncologic Surgeries/Procedures: lymph node biopsy Dermatological Surgical History: Reports: None Social & Family History - Family History Family Medical History: No Pertinent Family History - Tobacco Use Tobacco Use Status *Q: Unknown Ever Used Tobacco - Caffeine Use Caffeine Use: Reports: None - Living Situation & Occupation Living situation: Reports: , with Spouse Occupation: Retired ED ROS GENERAL - Review of Systems Review Of Systems: See Below Constitutional: Reports: Chills, Other (She has felt warm at times but no fevers that she is aware of) HEENT: Reports: No Symptoms Respiratory: Reports: Shortness of Breath, Cough Cardiovascular: Reports: No Symptoms Endocrine: Reports: No Symptoms GI/Abdominal: Reports: No Symptoms : Reports: No Symptoms Musculoskeletal: Reports: No Symptoms Skin: Reports: No Symptoms Neurological: Reports: No Symptoms Psychiatric: Reports: No Symptoms Hematologic/Lymphatic: Reports: No Symptoms ED EXAM, GENERAL - Physical Exam Exam: See Below Exam Limited By: No Limitations General Appearance: Alert, No Apparent Distress Eye Exam: Bilateral Eye: Normal Inspection Ears: Normal External Exam, Normal Canal, Hearing Grossly Normal, Normal TMs Nose: Normal Inspection, Normal Mucosa, No Blood Throat/Mouth: Normal Inspection, Normal Lips, Normal Teeth, Normal Gums, Normal Oropharynx, Normal Voice, No Airway Compromise Head: Atraumatic, Normocephalic Neck: Normal Inspection, Supple, Non-Tender, Full Range of Motion. No: Lymphadenopathy (L), Lymphadenopathy (R) Respiratory/Chest: No Respiratory Distress, Lungs Clear, Normal Breath Sounds Cardiovascular: Regular Rate, Rhythm, No Edema, No Murmur GI/Abdominal: Normal Bowel Sounds, Soft, Non-Tender Extremities: Normal Inspection, No Pedal Edema Neurological: Alert, Oriented, Normal Cognition Course - Vital Signs Last Recorded V/S: Last Vital Signs Temp 36.3 C 03/08/21 04:12 Pulse 74 03/08/21 04:12 Resp 18 03/08/21 04:12 BP 144/76 H 03/08/21 04:12 Pulse Ox 96 03/08/21 04:12 - Orders/Labs/Meds Orders: Active Orders 24 hr Category Date Time Status Chest 1V Frontal [CR] Stat Exams 03/08/21 04:35 Taken CULTURE BLOOD [BC] Stat Lab 03/08/21 04:50 Received CULTURE BLOOD [BC] Stat Lab 03/08/21 05:20 Received Blood Culture x2 Reflex Set [OM.PC] Stat Oth 03/08/21 04:36 Ordered Labs: Laboratory Tests 03/08/21 03/08/21 03/08/21 Range/Units 04:50 04:50 04:50 WBC 10.52 H (3.98-10.04) K/mm3 RBC 2.82 L (3.98-5.22) M/mm3 Hgb 9.8 L D (11.2-15.7) gm/dl Hct 29.8 L (34.1-44.9) % MCV 105.7 H D (79.4-94.8) fl MCH 34.8 H (25.6-32.2) pg MCHC 32.9 (32.2-35.5) g/dl RDW Std Deviation 66.5 H (36.4-46.3) fL Plt Count 264 D (182-369) K/mm3 MPV 9.9 (9.4-12.3) fl Neutrophils % (Manual) 97 H (40-60) % Band Neutrophils % 0 (0-10) % Lymphocytes % (Manual) 3 L (20-40) % Atypical Lymphs % 0 % Immat Monocytes % (Man) 0 Monocytes % (Manual) 0 L (2-10) % Eosinophils % (Manual) 0 L (0.7-5.8) % Basophils % (Manual) 0 L (0.1-1.2) Metamyelocytes % 0 Myelocytes % 0 Promyelocytes % 0 Blast Cells % 0 Plasma Cell % (Manual) 0 Nucleated RBCs 0.0 % Platelet Estimate Adequate Anisocytosis 1+ slight Macrocytosis 1+ slight RBC Morph Comment Not Reportable PT 9.9 (9.7-12.0) SECONDS INR < 0.93 APTT 21.3 L (21.7-31.4) SECONDS Sodium 140 (136-145) mEq/L Potassium 4.0 (3.5-5.1) mEq/L Chloride 103 (98-107) mEq/L Carbon Dioxide 26 (21-32) mEq/L Anion Gap 15.0 (5-15) BUN 28 H (7-18) mg/dL Creatinine 1.4 H (0.55-1.02) mg/dL Est Cr Clr Drug Dosing 25.83 mL/min Estimated GFR (MDRD) 36 (>60) mL/min BUN/Creatinine Ratio 20.0 H (14-18) Glucose 141 H (70-99) mg/dL Lactic Acid (0.4-2.0) mmol/L Calcium 8.7 (8.5-10.1) mg/dL Total Bilirubin 0.7 (0.2-1.0) mg/dL AST 38 H (15-37) U/L ALT 65 H (14-59) U/L Alkaline Phosphatase 66 (46-116) U/L Troponin I < 0.017 (0.00-0.056) ng/mL NT-Pro-B Natriuret Pep (0-450) pg/mL Total Protein 6.6 (6.4-8.2) g/dl Albumin 3.2 L (3.4-5.0) g/dl Globulin 3.4 gm/dL Albumin/Globulin Ratio 0.9 L (1-2) Urine Color (Yellow) Urine Appearance (Clear) Urine pH (5.0-8.0) Ur Specific [place] (1.005-1.030) Urine Protein (Negative) Urine Glucose (UA) (Negative) Urine Ketones (Negative) Urine Occult Blood (Negative) Urine Nitrite (Negative) Urine Bilirubin (Negative) Urine Urobilinogen (0.2-1.0) Ur Leukocyte Esterase (Negative) Urine RBC (0-5) /hpf Urine WBC (0-5) /hpf Ur Squamous Epith Cells (0-5) /hpf Urine Bacteria (FEW) /hpf Urine Mucus (FEW) /hpf SARS-CoV-2 RNA (CATIE) (NEGATIVE) 03/08/21 03/08/21 03/08/21 Range/Units 04:50 04:50 05:00 WBC (3.98-10.04) K/mm3 RBC (3.98-5.22) M/mm3 Hgb (11.2-15.7) gm/dl Hct (34.1-44.9) % MCV (79.4-94.8) fl MCH (25.6-32.2) pg MCHC (32.2-35.5) g/dl RDW Std Deviation (36.4-46.3) fL Plt Count (182-369) K/mm3 MPV (9.4-12.3) fl Neutrophils % (Manual) (40-60) % Band Neutrophils % (0-10) % Lymphocytes % (Manual) (20-40) % Atypical Lymphs % % Immat Monocytes % (Man) Monocytes % (Manual) (2-10) % Eosinophils % (Manual) (0.7-5.8) % Basophils % (Manual) (0.1-1.2) Metamyelocytes % Myelocytes % Promyelocytes % Blast Cells % Plasma Cell % (Manual) Nucleated RBCs % Platelet Estimate Anisocytosis Macrocytosis RBC Morph Comment PT (9.7-12.0) SECONDS INR APTT (21.7-31.4) SECONDS Sodium (136-145) mEq/L Potassium (3.5-5.1) mEq/L Chloride (98-107) mEq/L Carbon Dioxide (21-32) mEq/L Anion Gap (5-15) BUN (7-18) mg/dL Creatinine (0.55-1.02) mg/dL Est Cr Clr Drug Dosing mL/min Estimated GFR (MDRD) (>60) mL/min BUN/Creatinine Ratio (14-18) Glucose (70-99) mg/dL Lactic Acid 1.0 (0.4-2.0) mmol/L Calcium (8.5-10.1) mg/dL Total Bilirubin (0.2-1.0) mg/dL AST (15-37) U/L ALT (14-59) U/L Alkaline Phosphatase (46-116) U/L Troponin I (0.00-0.056) ng/mL NT-Pro-B Natriuret Pep 4147 H (0-450) pg/mL Total Protein (6.4-8.2) g/dl Albumin (3.4-5.0) g/dl Globulin gm/dL Albumin/Globulin Ratio (1-2) Urine Color Yellow (Yellow) Urine Appearance Clear (Clear) Urine pH 7.0 (5.0-8.0) Ur Specific [place] 1.020 (1.005-1.030) Urine Protein 1+ H (Negative) Urine Glucose (UA) Negative (Negative) Urine Ketones Negative (Negative) Urine Occult Blood Negative (Negative) Urine Nitrite Negative (Negative) Urine Bilirubin Negative (Negative) Urine Urobilinogen 0.2 (0.2-1.0) Ur Leukocyte Esterase Negative (Negative) Urine RBC Not seen (0-5) /hpf Urine WBC 0-5 (0-5) /hpf Ur Squamous Epith Cells 5-10 H (0-5) /hpf Urine Bacteria Not seen (FEW) /hpf Urine Mucus Not seen (FEW) /hpf SARS-CoV-2 RNA (CATIE) (NEGATIVE) 03/08/21 Range/Units 06:10 WBC (3.98-10.04) K/mm3 RBC (3.98-5.22) M/mm3 Hgb (11.2-15.7) gm/dl Hct (34.1-44.9) % MCV (79.4-94.8) fl MCH (25.6-32.2) pg MCHC (32.2-35.5) g/dl RDW Std Deviation (36.4-46.3) fL Plt Count (182-369) K/mm3 MPV (9.4-12.3) fl Neutrophils % (Manual) (40-60) % Band Neutrophils % (0-10) % Lymphocytes % (Manual) (20-40) % Atypical Lymphs % % Immat Monocytes % (Man) Monocytes % (Manual) (2-10) % Eosinophils % (Manual) (0.7-5.8) % Basophils % (Manual) (0.1-1.2) Metamyelocytes % Myelocytes % Promyelocytes % Blast Cells % Plasma Cell % (Manual) Nucleated RBCs % Platelet Estimate Anisocytosis Macrocytosis RBC Morph Comment PT (9.7-12.0) SECONDS INR APTT (21.7-31.4) SECONDS Sodium (136-145) mEq/L Potassium (3.5-5.1) mEq/L Chloride (98-107) mEq/L Carbon Dioxide (21-32) mEq/L Anion Gap (5-15) BUN (7-18) mg/dL Creatinine (0.55-1.02) mg/dL Est Cr Clr Drug Dosing mL/min Estimated GFR (MDRD) (>60) mL/min BUN/Creatinine Ratio (14-18) Glucose (70-99) mg/dL Lactic Acid (0.4-2.0) mmol/L Calcium (8.5-10.1) mg/dL Total Bilirubin (0.2-1.0) mg/dL AST (15-37) U/L ALT (14-59) U/L Alkaline Phosphatase (46-116) U/L Troponin I (0.00-0.056) ng/mL NT-Pro-B Natriuret Pep (0-450) pg/mL Total Protein (6.4-8.2) g/dl Albumin (3.4-5.0) g/dl Globulin gm/dL Albumin/Globulin Ratio (1-2) Urine Color (Yellow) Urine Appearance (Clear) Urine pH (5.0-8.0) Ur Specific [place] (1.005-1.030) Urine Protein (Negative) Urine Glucose (UA) (Negative) Urine Ketones (Negative) Urine Occult Blood (Negative) Urine Nitrite (Negative) Urine Bilirubin (Negative) Urine Urobilinogen (0.2-1.0) Ur Leukocyte Esterase (Negative) Urine RBC (0-5) /hpf Urine WBC (0-5) /hpf Ur Squamous Epith Cells (0-5) /hpf Urine Bacteria (FEW) /hpf Urine Mucus (FEW) /hpf SARS-CoV-2 RNA (ACTIE) Negative (NEGATIVE) Meds: Medications Discontinued Medications Generic Name Dose Route Start Last Admin Trade Name Freq PRN Reason Stop Dose Admin Furosemide 40 mg 03/08/21 07:17 Furosemide 40 Mg/4 Ml Vial IVPUSH 03/08/21 07:18 NOW ONE Morphine Sulfate 4 mg 03/08/21 04:59 03/08/21 06:01 Morphine 4 Mg/Ml Syringe IM 03/08/21 05:00 Not Given ONETIME ONE Ondansetron HCl 4 mg 03/08/21 05:23 03/08/21 05:47 Ondansetron 4 Mg/2 Ml Sdv IVPUSH 03/08/21 05:24 4 mg ONETIME ONE Administration Potassium Chloride 20 meq 03/08/21 07:17 Potassium Chloride 20 Meq Tab.Er PO 03/08/21 07:18 ONETIME ONE - Re-Assessments/Exams Free Text/Narrative Re-Assessment/Exam: 03/08/21 04:58 X-rays done the chest show worsening failure pattern dual-chamber pacemaker infusion catheter she is somewhat rotated small right-sided pleural effusion cannot exclude 1 on the left the mass noted on the last chest x-ray in August of this last year seems much smaller. I need to get foot x-rays. And the x-ray tech would not do them because of thinking the patient was in too much pain. We will try and give more pain medication see if we get him feel little bit better 03/08/21 07:[address] Machuca, hospitalist who will accept the patient Departure - Departure Time of Disposition: 07:31 Disposition: Home, Self-Care 01 Clinical Impression: Hypoxia Congestive heart failure Qualifiers: Qualified Code(s): I50.32 - Chronic diastolic (congestive) heart failure - Discharge Information Forms: ED Department Discharge Sepsis Event Note (ED) - Evaluation Sepsis Screening Result: No Definite Risk - Focused Exam Vital Signs: Vital Signs Temp Pulse Resp BP Pulse Ox 03/08/21 04:12 36.3 C 74 18 144/76 H 96 - My Orders Last 24 Hours: My Active Orders 03/08/21 04:35 Chest 1V Frontal [CR] Stat 03/08/21 04:36 Blood Culture x2 Reflex Set [OM.PC] Stat 03/08/21 04:50 CULTURE BLOOD [BC] Stat 03/08/21 05:20 CULTURE BLOOD [BC] Stat - Assessment/Plan Last 24 Hours: My Active Orders 03/08/21 04:35 Chest 1V Frontal [CR] Stat 03/08/21 04:36 Blood Culture x2 Reflex Set [OM.PC] Stat 03/08/21 04:50 CULTURE BLOOD [BC] Stat 03/08/21 05:20 CULTURE BLOOD [BC] Stat
[2021-03-08] MEDS ORDERED: Morphine 4 MG/ML Syringe IM ONE (04:59)
[2021-03-08] MEDS ORDERED: Ondansetron 4 MG/2 ML SDV IVPUSH ONE (05:23)
[2021-03-08] MEDS ORDERED: Potassium Chloride 20 MEQ Tab.ER PO ONE ×2 (07:17→10:15)
[2021-03-08] MEDS ORDERED: Furosemide 40 MG/4 ML VIAL IVPUSH ONE (07:17)
[2021-03-08] MEDS ORDERED: cefTRIAXone 2 GM in Sodium Chloride 0.9% 100 ML IV SCH (07:30)
--- NOTE | 2021-03-08 08:16 | PCM.HP.2 ---
H&P History of Present Illness - General Date of Service: 03/08/21 Admit Problem/Dx: Admission Diagnosis/Problem Admission Diagnosis/Problem Acute respiratory failure with hypoxemia Source of Information: Patient History Limitations: Reports: No Limitations - History of Present Illness Initial Comments - Free Text/Narative: Mrs. 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 She she was recently told by her oncologist that her cancer was recurring for the fourth time. She was then started on a new chemotherapeutic agent less then a month ago. Since then she has had episodes of nausea and generalized weakness. She often goes for IV infusions and lab work on a more than a weekly basis. Today she came to the hospital because she felt weak, nauseated and was now coughing. In the ED patient was evaluated and thought to have some mild congestive heart failure. She was given a 40 mg of IV Lasix and she was able to diurese 1700 cc over the next couple hours. Her COVID-19 test today was negative. She has a history of COVID-19 infection in August 2020. Lala garcia currently lives at an assisted care living facility but denies having any recent known sick contacts. Onset of Symptoms: Reports: Gradual Duration of Symptoms: Reports: Day(s): Location: Reports: Generalized Improves with: Reports: None Worsens with: Reports: None Associated Symptoms: Reports: No Other Symptoms, Chest Pain - Related Data Allergies/Adverse Reactions: Allergies Allergy/AdvReac Type Severity Reaction Status Date / Time codeine Allergy Swollen Verified 03/08/21 04:12 Tongue duloxetine [From Cymbalta] Allergy Difficulty Verified 03/08/21 04:12 Breathing hydrocodone Allergy Swollen Verified 03/08/21 04:12 Tongue sulfamethoxazole Allergy Swelling Verified 03/08/21 04:12 [From Bactrim] trimethoprim [From Bactrim] Allergy Swelling Verified 03/08/21 04:12 fentanyl AdvReac Chest Pain Verified 03/08/21 04:12 hydromorphone [From Dilaudid] AdvReac Chills Verified 03/08/21 04:12 Home Medications: Home Meds Levothyroxine 75 mcg PO DAILY 12/10/15 [History] Lisinopril 40 mg PO DAILY 12/10/15 [History] Furosemide [Lasix] 20 mg PO DAILY #30 tablet 03/17/16 [Rx] Latanoprost 1 drop EYEBOTH BEDTIME 10/20/16 [History] Prochlorperazine [Compazine] 10 mg PO QID PRN 05/03/17 [History] Psyllium Husk [Metamucil] 1 tsp PO BID 07/30/17 [History] Aspirin 81 mg PO DAILY 03/17/18 [History] traMADol [Ultram] 50 mg PO Q6H PRN 03/17/18 [History] Cholecalciferol (Vitamin D3) [Vitamin D3] 2,000 units PO DAILY 12/30/18 [History ] Ketoconazole [Nizoral 2% Crm] 1 applic TOP BID 12/30/18 [History] Nitroglycerin [Nitrostat] 0.4 mg PO ASDIRECTED PRN 09/24/20 [History] Delta-3/DHA/Epa/Fish Oil [Delta 3 500 Softgel] 1,000 mg PO DAILY 09/24/20 [History] Ondansetron [Zofran] 4 mg PO Q6H PRN 09/24/20 [History] atorvaSTATin [Lipitor] 40 mg PO BEDTIME 09/24/20 [History] Folic Acid 1 mg PO DAILY 03/08/21 [History] Insulin Glarg,Human.Rec.Analog [Lantus] 13 unit SUBCUT DAILY 03/08/21 [History] OLANZapine [ZyPREXA] 10 mg PO ASDIRECTED PRN 03/08/21 [History] Cefdinir [Omnicef] 300 mg PO BID 6 Days #12 cap 03/09/21 [Rx] Metoprolol Succinate [Toprol Xl] 100 mg PO DAILY 30 Days #30 tab 03/09/21 [Rx] Past Medical History HEENT History: Reports: Cataract, Glaucoma, Impaired Vision Other HEENT History: Wears glasses Cardiovascular History: Reports: High Cholesterol, Hypertension, Pacemaker Other Cardiovascular History: chest pain/pressure, edema Respiratory History: Reports: SOB Other Respiratory History: Lung Cancer, Pulmonary nodule, Dyspnea on exertion. Patient reports right lower lobe lobectomy she believes 5 years ago. Followed with postoperative radiation to the right lung field. Currently has left lower lobe lung cancer with recent CT done showing increased nodularity. 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 - Infectious Disease History Infectious Disease History: Reports: Chicken Pox, Measles, MRSA, Mumps, Novel Coronavirus, Shingles - Past Surgical History HEENT Surgical History: Reports: Cataract Surgery Cardiovascular Surgical History: Reports: Pacer Respiratory Surgical History: Reports: Thoracotomy Other Respiratory Surgeries/Procedures: Bronchoscopy,Thoracotomy with RLL lobectomy GI Surgical History: Reports: Appendectomy, Colonoscopy Female Surgical History: Reports: Hysterectomy, Salpingo-Oophorectomy Endocrine Surgical History: Reports: Thyroidectomy Neurological Surgical History: Reports: None Musculoskeletal Surgical History: Reports: Hip Replacement Other Musculoskeletal Surgeries/Procedures:: Left total hip replacement Oncologic Surgical History: Reports: Lobectomy, Other (See Below) Other Oncologic Surgeries/Procedures: lymph node biopsy Dermatological Surgical History: Reports: None Social & Family History - Family History Family Medical History: No Pertinent Family History - Tobacco Use Tobacco Use Status *Q: Unknown Ever Used Tobacco - Caffeine Use Caffeine Use: Reports: None - Living Situation & Occupation Living situation: Reports: , with Spouse Occupation: Retired H&P Review of Systems - Review of Systems: Review Of Systems: See Below General: Reports: No Symptoms HEENT: Reports: No Symptoms Pulmonary: Reports: No Symptoms Cardiovascular: Reports: No Symptoms Gastrointestinal: Reports: No Symptoms Genitourinary: Reports: No Symptoms Musculoskeletal: Reports: No Symptoms Skin: Reports: No Symptoms Psychiatric: Reports: No Symptoms Neurological: Reports: No Symptoms Hematologic/Lymphatic: Reports: No Symptoms Immunologic: Reports: No Symptoms Exam - Exam Exam: See Below (This is a elderly female who is awake and alert no distress) - Vital Signs Vital Signs: Last Vital Signs Temp 97.3 F 03/08/21 04:12 Pulse 74 03/08/21 04:12 Resp 18 03/08/21 04:12 BP 144/76 H 03/08/21 04:12 Pulse Ox 96 03/08/21 04:12 Weight: 173 lb - Exam General: Alert, Oriented, 4 HEENT: PERRLA, Hearing Intact, Mucosa Moist & [place], Nares Patent, Normal Nasal Septum, Posterior Pharynx Clear, Conjunctiva Clear, EOMI, EACs Clear, TMs Clear Neck: Supple, Trachea Midline, 2 Lungs: Clear to Auscultation, Normal Respiratory Effort Cardiovascular: Regular Rate, Regular Rhythm GI/Abdominal Exam: Normal Bowel Sounds, Soft, Non-Tender, No Organomegaly, No Distention, No Abnormal Bruit, No Mass, Pelvis Stable (Female) Exam: Normal External Exam, Normal Speculum Exam, Normal Bimanual Exam Rectal (Female) Exam: Normal Exam, Normal Rectal Tone Back Exam: Normal Inspection, Full Range of Motion, NT Extremities: Normal Inspection, Normal Range of Motion, Non-Tender, No Pedal Edema, Normal Capillary Refill Skin: Warm, Dry, Intact Neurological: Cranial Nerves Intact, Reflexes Equal Bilateral Neuro Extensive - Mental Status: Alert, Oriented x3, Normal Mood/Affect, Normal Cognition Neuro Extensive - Motor, Sensory, Reflexes: CN II-XII Intact, Normal Gait, Normal Reflexes Psychiatric: Alert, Normal Affect, Normal Mood Physical Exam Comments:: General: This an elderly female who is awake and alert no acute distress. Patient appears weak and lethargic CVS: S1S is appreciated regular rhythm and rythm, no murmurs rubs or gallops Lungs: Clear without any rales or wheezes Abdomen: Soft obese nontender bowel sounds are present Extremities: There is no clubbing cyanosis edema peripheral pulses 2+ Neuro exam: Nonfocal. Patient ambulates with a 2 wheeled walker and minimal assistance - Patient Data Lab Results Last 24 hrs: Laboratory Results - last 24 hr 03/08/21 03/08/21 03/08/21 Range/Units 04:50 04:50 04:50 WBC 10.52 H (3.98-10.04) K/mm3 RBC 2.82 L (3.98-5.22) M/mm3 Hgb 9.8 L D (11.2-15.7) gm/dl Hct 29.8 L (34.1-44.9) % MCV 105.7 H D (79.4-94.8) fl MCH 34.8 H (25.6-32.2) pg MCHC 32.9 (32.2-35.5) g/dl RDW Std Deviation 66.5 H (36.4-46.3) fL Plt Count 264 D (182-369) K/mm3 MPV 9.9 (9.4-12.3) fl Neutrophils % (Manual) 97 H (40-60) % Band Neutrophils % 0 (0-10) % Lymphocytes % (Manual) 3 L (20-40) % Atypical Lymphs % 0 % Immat Monocytes % (Man) 0 Monocytes % (Manual) 0 L (2-10) % Eosinophils % (Manual) 0 L (0.7-5.8) % Basophils % (Manual) 0 L (0.1-1.2) Metamyelocytes % 0 Myelocytes % 0 Promyelocytes % 0 Blast Cells % 0 Plasma Cell % (Manual) 0 Nucleated RBCs 0.0 % Platelet Estimate Adequate Anisocytosis 1+ slight Macrocytosis 1+ slight RBC Morph Comment Not Reportable PT 9.9 (9.7-12.0) SECONDS INR < 0.93 APTT 21.3 L (21.7-31.4) SECONDS Sodium 140 (136-145) mEq/L Potassium 4.0 (3.5-5.1) mEq/L Chloride 103 (98-107) mEq/L Carbon Dioxide 26 (21-32) mEq/L Anion Gap 15.0 (5-15) BUN 28 H (7-18) mg/dL Creatinine 1.4 H (0.55-1.02) mg/dL Est Cr Clr Drug Dosing 25.83 mL/min Estimated GFR (MDRD) 36 (>60) mL/min BUN/Creatinine Ratio 20.0 H (14-18) Glucose 141 H (70-99) mg/dL Lactic Acid (0.4-2.0) mmol/L Calcium 8.7 (8.5-10.1) mg/dL Total Bilirubin 0.7 (0.2-1.0) mg/dL AST 38 H (15-37) U/L ALT 65 H (14-59) U/L Alkaline Phosphatase 66 (46-116) U/L Troponin I < 0.017 (0.00-0.056) ng/mL NT-Pro-B Natriuret Pep (0-450) pg/mL Total Protein 6.6 (6.4-8.2) g/dl Albumin 3.2 L (3.4-5.0) g/dl Globulin 3.4 gm/dL Albumin/Globulin Ratio 0.9 L (1-2) Urine Color (Yellow) Urine Appearance (Clear) Urine pH (5.0-8.0) Ur Specific [place] (1.005-1.030) Urine Protein (Negative) Urine Glucose (UA) (Negative) Urine Ketones (Negative) Urine Occult Blood (Negative) Urine Nitrite (Negative) Urine Bilirubin (Negative) Urine Urobilinogen (0.2-1.0) Ur Leukocyte Esterase (Negative) Urine RBC (0-5) /hpf Urine WBC (0-5) /hpf Ur Squamous Epith Cells (0-5) /hpf Urine Bacteria (FEW) /hpf Urine Mucus (FEW) /hpf SARS-CoV-2 RNA (CATIE) (NEGATIVE) 03/08/21 03/08/21 03/08/21 Range/Units 04:50 04:50 05:00 WBC (3.98-10.04) K/mm3 RBC (3.98-5.22) M/mm3 Hgb (11.2-15.7) gm/dl Hct (34.1-44.9) % MCV (79.4-94.8) fl MCH (25.6-32.2) pg MCHC (32.2-35.5) g/dl RDW Std Deviation (36.4-46.3) fL Plt Count (182-369) K/mm3 MPV (9.4-12.3) fl Neutrophils % (Manual) (40-60) % Band Neutrophils % (0-10) % Lymphocytes % (Manual) (20-40) % Atypical Lymphs % % Immat Monocytes % (Man) Monocytes % (Manual) (2-10) % Eosinophils % (Manual) (0.7-5.8) % Basophils % (Manual) (0.1-1.2) Metamyelocytes % Myelocytes % Promyelocytes % Blast Cells % Plasma Cell % (Manual) Nucleated RBCs % Platelet Estimate Anisocytosis Macrocytosis RBC Morph Comment PT (9.7-12.0) SECONDS INR APTT (21.7-31.4) SECONDS Sodium (136-145) mEq/L Potassium (3.5-5.1) mEq/L Chloride (98-107) mEq/L Carbon Dioxide (21-32) mEq/L Anion Gap (5-15) BUN (7-18) mg/dL Creatinine (0.55-1.02) mg/dL Est Cr Clr Drug Dosing mL/min Estimated GFR (MDRD) (>60) mL/min BUN/Creatinine Ratio (14-18) Glucose (70-99) mg/dL Lactic Acid 1.0 (0.4-2.0) mmol/L Calcium (8.5-10.1) mg/dL Total Bilirubin (0.2-1.0) mg/dL AST (15-37) U/L ALT (14-59) U/L Alkaline Phosphatase (46-116) U/L Troponin I (0.00-0.056) ng/mL NT-Pro-B Natriuret Pep 4147 H (0-450) pg/mL Total Protein (6.4-8.2) g/dl Albumin (3.4-5.0) g/dl Globulin gm/dL Albumin/Globulin Ratio (1-2) Urine Color Yellow (Yellow) Urine Appearance Clear (Clear) Urine pH 7.0 (5.0-8.0) Ur Specific [place] 1.020 (1.005-1.030) Urine Protein 1+ H (Negative) Urine Glucose (UA) Negative (Negative) Urine Ketones Negative (Negative) Urine Occult Blood Negative (Negative) Urine Nitrite Negative (Negative) Urine Bilirubin Negative (Negative) Urine Urobilinogen 0.2 (0.2-1.0) Ur Leukocyte Esterase Negative (Negative) Urine RBC Not seen (0-5) /hpf Urine WBC 0-5 (0-5) /hpf Ur Squamous Epith Cells 5-10 H (0-5) /hpf Urine Bacteria Not seen (FEW) /hpf Urine Mucus Not seen (FEW) /hpf SARS-CoV-2 RNA (CATIE) (NEGATIVE) 03/08/21 Range/Units 06:10 WBC (3.98-10.04) K/mm3 RBC (3.98-5.22) M/mm3 Hgb (11.2-15.7) gm/dl Hct (34.1-44.9) % MCV (79.4-94.8) fl MCH (25.6-32.2) pg MCHC (32.2-35.5) g/dl RDW Std Deviation (36.4-46.3) fL Plt Count (182-369) K/mm3 MPV (9.4-12.3) fl Neutrophils % (Manual) (40-60) % Band Neutrophils % (0-10) % Lymphocytes % (Manual) (20-40) % Atypical Lymphs % % Immat Monocytes % (Man) Monocytes % (Manual) (2-10) % Eosinophils % (Manual) (0.7-5.8) % Basophils % (Manual) (0.1-1.2) Metamyelocytes % Myelocytes % Promyelocytes % Blast Cells % Plasma Cell % (Manual) Nucleated RBCs % Platelet Estimate Anisocytosis Macrocytosis RBC Morph Comment PT (9.7-12.0) SECONDS INR APTT (21.7-31.4) SECONDS Sodium (136-145) mEq/L Potassium (3.5-5.1) mEq/L Chloride (98-107) mEq/L Carbon Dioxide (21-32) mEq/L Anion Gap (5-15) BUN (7-18) mg/dL Creatinine (0.55-1.02) mg/dL Est Cr Clr Drug Dosing mL/min Estimated GFR (MDRD) (>60) mL/min BUN/Creatinine Ratio (14-18) Glucose (70-99) mg/dL Lactic Acid (0.4-2.0) mmol/L Calcium (8.5-10.1) mg/dL Total Bilirubin (0.2-1.0) mg/dL AST (15-37) U/L ALT (14-59) U/L Alkaline Phosphatase (46-116) U/L Troponin I (0.00-0.056) ng/mL NT-Pro-B Natriuret Pep (0-450) pg/mL Total Protein (6.4-8.2) g/dl Albumin (3.4-5.0) g/dl Globulin gm/dL Albumin/Globulin Ratio (1-2) Urine Color (Yellow) Urine Appearance (Clear) Urine pH (5.0-8.0) Ur Specific [place] (1.005-1.030) Urine Protein (Negative) Urine Glucose (UA) (Negative) Urine Ketones (Negative) Urine Occult Blood (Negative) Urine Nitrite (Negative) Urine Bilirubin (Negative) Urine Urobilinogen (0.2-1.0) Ur Leukocyte Esterase (Negative) Urine RBC (0-5) /hpf Urine WBC (0-5) /hpf Ur Squamous Epith Cells (0-5) /hpf Urine Bacteria (FEW) /hpf Urine Mucus (FEW) /hpf SARS-CoV-2 RNA (CATIE) Negative (NEGATIVE) Result Diagrams: 03/09/21 05:53 03/09/21 05:53 Sepsis Event Note - Evaluation Sepsis Screening Result: No Definite Risk - Focused Exam Vital Signs: Vital Signs Temp Pulse Resp BP Pulse Ox 03/08/21 04:12 97.3 F 74 18 144/76 H 96 - Problem List (1) Hypoxia SNOMED Code(s): 526627877 ICD Code: R09.02 - HYPOXEMIA Status: Acute Current Visit: Yes Problem Details: Etiology is unclear. Likely secondary to acute CHF and pneumonia/bronchitis. Patient did respond to IV Lasix. We will admitted to the medical floor and observation status. Continue with diuresis. Empirically cover pt with Abx. (2) Congestive heart failure SNOMED Code(s): 74635191 ICD Code: I50.9 - HEART FAILURE, UNSPECIFIED Status: Chronic Priority: Low Current Visit: Yes Problem Details: Given her h/o CAD, age, chemotherapy and radiation exposure , she very likely has underlying congestive heart failure. This could be systolic, diastolic or combination of both. She reports I received some IV fluids from her provider in outpatient infusion basis. This could have pushed her over the edge and put in an acute decompensated congestive heart failure state. She will need to have an outpatient 2D echo to assess LV function (3) Adverse drug effect SNOMED Code(s): 46778506 ICD Code: T88.7XXA - UNSP ADVERSE EFFECT OF DRUG OR MEDICAMENT, INIT ENCNTR Status: Acute Current Visit: No Problem Details: Patient has nausea as well as oral ulcers which could be due to a mucosytis. These are likely chemotherapy related adverse effects. I will continue to monitor patient closely. She has been ordered IV Zofran. I will also order Magic mouthwash for comfort prn. Qualifiers: Encounter type: initial encounter Qualified Code(s): T50.905A - Adverse effect of unspecified drugs, medicaments and biological substances, initial encounter (4) Anterior chest wall pain SNOMED Code(s): 246761380 ICD Code: R07.89 - OTHER CHEST PAIN Status: Acute Current Visit: No Problem Details: likely due to metasatic lung disease will check a troponin to r/o ACS given her h/o CAD. (5) Metastatic cancer to lung SNOMED Code(s): 43570145 ICD Code: C78.00 - SECONDARY MALIGNANT NEOPLASM OF UNSPECIFIED LUNG Status: Acute Current Visit: Yes Problem Details: Pt is following up with oncology. Qualifiers: Qualified Code(s): C78.02 - Secondary malignant neoplasm of left lung (6) Pacemaker SNOMED Code(s): 779906327 ICD Code: Z95.0 - PRESENCE OF CARDIAC PACEMAKER Status: Acute Current Visit: Yes (7) CAD (coronary artery disease) SNOMED Code(s): 85523565 ICD Code: I25.10 - ATHSCL HEART DISEASE OF [place] CORONARY ARTERY W/O ANG PCTRS Status: Acute Current Visit: Yes Problem Details: Follow serial troponins. continue ASA, Statin, beta eveline when possible. Qualifiers: Coronary Disease-Associated Artery/Lesion type: [place] artery (8) Full code status SNOMED Code(s): 740219596 ICD Code: Z78.9 - OTHER SPECIFIED HEALTH STATUS Status: Acute Current Visit: Yes (9) DVT prophylaxis SNOMED Code(s): 060156882, 896099425 ICD Code: Z29.9 - ENCOUNTER FOR PROPHYLACTIC MEASURES, UNSPECIFIED Status: Acute Current Visit: Yes Problem Details: SQ lovenox Problem List Initiated/Reviewed/Updated: Yes Orders Last 24hrs: Active Orders 24 hr Category Date Time Status Change Admitting Physician [ADT] Routine ADT 03/08/21 07:45 Ordered Patient Status Manage Transfer [TRANSFER] Routine ADT 03/08/21 07:47 Active Chest 1V Frontal [CR] Stat Exams 03/08/21 04:35 Taken CULTURE BLOOD [BC] Stat Lab 03/08/21 04:50 Received CULTURE BLOOD [BC] Stat Lab 03/08/21 05:20 Received cefTRIAXone [Rocephin] 2 gm Med 03/08/21 07:30 Active Sodium Chloride 0.9% [Normal Saline] 100 ml IV Q24H Blood Culture x2 Reflex Set [OM.PC] Stat Oth 03/08/21 04:36 Ordered Medication Orders Ceftriaxone Sodium 2 gm/ (Sodium Chloride) 100 mls @ 200 mls/hr IV Q24H LUCIO
[2021-03-08] MEDS ORDERED: Furosemide 40 MG/4 ML VIAL ONE (09:53)
--- NOTE | 2021-03-08 14:27 | CR ---
Chest: Portable view of the chest was obtained. Comparison: Prior chest x-ray of 09/24/20. There is an area of scarring within the right upper lung which appears less prominent than on prior exam. Patchy areas of increased density are noted within both perihilar regions raising the possibility of diffuse bronchitis if patient has infectious symptoms and cough. Heart size is felt to be prominent from technique. Right-sided infusion catheter is seen. Pacemaker is noted. No acute osseous abnormality is appreciated. Impression: 1. Scarring within the right upper chest from prior exam. 2. Diffuse increased perihilar markings raising the possibility of bronchitis if patient has infectious symptoms and cough. 3. Other findings as noted above which appear stable. Diagnostic code #3 I mostly agree with preliminary report from [facility], finalized on 03/08/21, 8:41 AM CDT, code 2
[2021-03-08] MEDS ORDERED: Acetaminophen 325 MG Tab PO PRN ×2 (14:54→15:13)
[2021-03-08] MEDS ORDERED: Sodium Chloride 0.9% 1,000 ML IV SCH (15:00)
[2021-03-08] MEDS ORDERED: Ondansetron 4 MG Tab.DIS PO PRN (15:13)
[2021-03-08] MEDS ORDERED: OLANZAPINE 10 MG PO PRN (15:13)
[2021-03-08] MEDS ORDERED: Prochlorperazine 5 MG Tab PO PRN (15:13)
[2021-03-08] MEDS ORDERED: Nitroglycerin 0.4 MG Tab.SL SL PRN (15:13)
[2021-03-08] MEDS ORDERED: Enoxaparin 30 MG/0.3 ML Syringe SUBCUT SCH (16:00)
[2021-03-08] MEDS: Aspirin 81 MG Tab.Chew PO SCH (16:41)
[2021-03-08] MEDS: Ondansetron 4 MG/2 ML SDV IVPUSH PRN (16:48)
[2021-03-08] MEDS: traMADol 50 MG Tab **OWN MED PO PRN (17:36)
[2021-03-08] MEDS ORDERED: Morphine 2 MG/ML SYRINGE IVPUSH PRN (17:44)
[2021-03-08] MEDS: Psyllium Husk Powder Sugar Free 5.85 GM Packet PO SCH (20:00)
[2021-03-08] MEDS ORDERED: Latanoprost 0.005% Ophth **OWN MED EYEBOTH SCH (21:00)
[2021-03-09] MEDS: traMADol 50 MG Tab **OWN MED PO PRN (04:51)
[2021-03-09] MEDS ORDERED: Levothyroxine 75 MCG Tab **OWN MED PO SCH (06:00)
[2021-03-09] MEDS ORDERED: cefTRIAXone 1 GM in Sodium Chloride 0.9% 100 ML IV SCH ×2 (07:00→10:00)
[2021-03-09] MEDS: Aspirin 81 MG Tab.Chew PO SCH (08:14)
[2021-03-09] MEDS: Psyllium Husk Powder Sugar Free 5.85 GM Packet PO SCH (08:14)
[2021-03-09 08:19] VITALS: BP 114/55
[2021-03-09] MEDS: Ondansetron 4 MG/2 ML SDV IVPUSH PRN (08:20)
[2021-03-09] MEDS ORDERED: AMLODIPINE 5 MG PO SCH (09:00)
[2021-03-09] MEDS ORDERED: Insulin Glarg,Human.Rec.Analog 100 Unit/ML SUBCUT SCH (09:00)
[2021-03-09] MEDS ORDERED: Furosemide 20 MG Tab **OWN MED PO SCH (09:00)
[2021-03-09] MEDS ORDERED: METOPROLOL SUCCINATE 100 MG PO SCH (09:00)
[2021-03-09] MEDS ORDERED: Folic Acid 1 MG Tab **OWN MED PO SCH (09:00)
[2021-03-09] MEDS ORDERED: Lisinopril 20 MG Tab **OWN MED PO SCH (09:00)
--- NOTE | 2021-03-09 10:38 | PCM.DCSUM1 ---
Discharge Summary - Hospital Course Free Text/Narrative:: Discharge diagnosis Acute hypoxemic respiratory failure secondary to acute heart failure (Most likely acute on chronic diastolic heart failure) Bronchitis Lung cancer with distant metastasis Nausea secondary to chemotherapy Discharge medications See med rec Short history/Hospital course Mrs. 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 She she was recently told by her oncologist that her cancer was recurring for the fourth time. She was then started on a new chemotherapeutic agent less then a month ago. Since then she has had episodes of nausea and generalized weakness. She often goes for IV hydration infusions and lab work on a more than a weekly basis. Today she came to the hospital because she felt weak, nauseated, dyspneic and coughing. In the ED patient was evaluated and thought to have some mild congestive heart failure. She was given a 40 mg of IV Lasix and she was able to diurese 1700 cc over the next couple of hours. Her COVID-19 test today was negative. She has a history of COVID-19 infection in August 2020. She was given the hospital overnight and treated with IV Rocephin as well as IV Lasix. The following morning she had diuresed over 25 cc of fluid. Her respiratory status is back to baseline and she is able to maintain a sat above 90% on room air. Leukocytosis has also resolved. She was discharged back to the assisted care living facility in stable condition. Condition on discharge: patient was stable Activity: As tolerated Diet: Carb controlled diet Patient follow-up with her PCP and oncologist within the next 1 to 2 weeks. Physical exam: Subjective: Patient feels she is back at baseline. She denies feeling dyspneic and would like to go back to her residence. Objective: Awake and alert in no acute distress. Sitting in the chair. In good spirits CVS: S1-S2 appreciated, regular rate and rhythm, no murmurs, rubs or gallops lungs: clear bilaterally, no rales or wheezes. Abdomen: Soft nontender bowel sound present Extremities: No clubbing, cyanosis or edema. pulses 2+ Neuro: Moves all extremities. Gait is normal - Discharge Data Discharge Date: 03/09/21 Discharge Disposition: DC/[facility] Condition: Good - Referral to Home Health Primary Care Physician: Mushtaq Andrews MD - Discharge Diagnosis/Problem(s) (1) Hypoxia SNOMED Code(s): 557255288 ICD Code: R09.02 - HYPOXEMIA Status: Acute Current Visit: Yes Problem Details: Etiology is unclear. Likely secondary to mild CHF along with possibly early pneumonia. Patient did respond to IV Lasix. We will admitted to the medical floor and observation status. (2) Congestive heart failure SNOMED Code(s): 92161109 ICD Code: I50.9 - HEART FAILURE, UNSPECIFIED Status: Chronic Priority: Low Current Visit: Yes (3) Adverse drug effect SNOMED Code(s): 00474952 ICD Code: T88.7XXA - UNSP ADVERSE EFFECT OF DRUG OR MEDICAMENT, INIT ENCNTR Status: Acute Current Visit: No Problem Details: Patient has nausea as well as oral ulcers. The symptoms possibly secondary to chemotherapy. Will monitor p atient with supportive measures. She has been ordered IV Zofran. I will also order Magic mouthwash for comfort Qualifiers: Encounter type: initial encounter Qualified Code(s): T50.905A - Adverse effect of unspecified drugs, medicaments and biological substances, initial encounter (4) Anterior chest wall pain SNOMED Code(s): 696721364 ICD Code: R07.89 - OTHER CHEST PAIN Status: Acute Current Visit: No Problem Details: likely due to metasatic lung disease will check a troponin to r/o ACS (5) Metastatic cancer to lung SNOMED Code(s): 73010764 ICD Code: C78.00 - SECONDARY MALIGNANT NEOPLASM OF UNSPECIFIED LUNG Status: Acute Current Visit: Yes Problem Details: Pt is following up with oncology Qualifiers: Qualified Code(s): C78.02 - Secondary malignant neoplasm of left lung (6) Pacemaker SNOMED Code(s): 601089567 ICD Code: Z95.0 - PRESENCE OF CARDIAC PACEMAKER Status: Acute Current Visit: Yes - Patient Summary/Data Consults: Consultations 03/08/21 15:10 Consult to Hospice [CONS] Routine - Discharge Plan Home Medications: Home Meds Levothyroxine 75 mcg PO DAILY 12/10/15 [History] Lisinopril 40 mg PO DAILY 12/10/15 [History] Furosemide [Lasix] 20 mg PO DAILY #30 tablet 03/17/16 [Rx] Latanoprost 1 drop EYEBOTH BEDTIME 10/20/16 [History] Prochlorperazine [Compazine] 10 mg PO QID PRN 05/03/17 [History] Psyllium Husk [Metamucil] 1 tsp PO BID 07/30/17 [History] Aspirin 81 mg PO DAILY 03/17/18 [History] traMADol [Ultram] 50 mg PO Q6H PRN 03/17/18 [History] Acetaminophen [Tylenol] 650 mg PO Q6H PRN 12/30/18 [History] Cholecalciferol (Vitamin D3) [Vitamin D3] 2,000 units PO DAILY 12/30/18 [History] Ketoconazole [Nizoral 2% Crm] 1 applic TOP BID 12/30/18 [History] Metoprolol Succinate [Toprol Xl] 200 mg PO DAILY 12/30/18 [History] Nitroglycerin [Nitrostat] 0.4 mg PO ASDIRECTED PRN 09/24/20 [History] [place]-3/DHA/Epa/Fish Oil [[place] 3 500 Softgel] 1,000 mg PO DAILY 09/24/20 [History] Ondansetron [Zofran] 4 mg PO Q6H PRN 09/24/20 [History] amLODIPine [Norvasc] 5 mg PO DAILY 09/24/20 [History] atorvaSTATin [Lipitor] 40 mg PO BEDTIME 09/24/20 [History] cephALEXin [Keflex] 500 mg PO Q12H #3 cap 09/30/20 [Rx] Folic Acid 1 mg PO DAILY 03/08/21 [History] Insulin Glarg,Human.Rec.Analog [Lantus] 13 unit SUBCUT DAILY 03/08/21 [History] OLANZapine [ZyPREXA] 10 mg PO ASDIRECTED PRN 03/08/21 [History] Referrals: Mushtaq Andrews MD [Primary Care Provider] - - Discharge Summary/Plan Comment DC Time >30 min.: Yes - Patient Data Vitals - Most Recent: Last Vital Signs Temp 98.2 F 03/09/21 04:37 Pulse 67 03/09/21 04:37 Resp 16 03/09/21 04:37 BP 114/55 L 03/09/21 08:13 Pulse Ox 96 03/09/21 04:37 Weight - Most Recent: 171 lb 3.2 oz I&O - Last 24 hours: Intake & Output 03/08/21 03/09/21 03/09/21 22:59 06:59 14:59 Intake Total 400 300 Output Total 1850 700 Balance -1450 -400 Lab Results - Last 24 hrs: Laboratory Results - last 24 hr 03/08/21 03/08/21 03/08/21 Range/Units 10:00 13:44 15:19 WBC (3.98-10.04) K/mm3 RBC (3.98-5.22) M/mm3 Hgb (11.2-15.7) gm/dl Hct (34.1-44.9) % MCV (79.4-94.8) fl MCH (25.6-32.2) pg MCHC (32.2-35.5) g/dl RDW Std Deviation (36.4-46.3) fL Plt Count (182-369) K/mm3 MPV (9.4-12.3) fl Neut % (Auto) (34.0-71.1) % Lymph % (Auto) (19.3-51.7) % [place] % (Auto) (4.7-12.5) % Eos % (Auto) (0.7-5.8) Baso % (Auto) (0.1-1.2) % Neut # (Auto) (1.56-6.13) K/mm3 Lymph # (Auto) (1.18-3.74) K/mm3 [place] # (Auto) (0.24-0.36) K/mm3 Eos # (Auto) (0.04-0.36) K/mm3 Baso # (Auto) (0.01-0.08) K/mm3 Sodium (136-145) mEq/L Potassium (3.5-5.1) mEq/L Chloride (98-107) mEq/L Carbon Dioxide (21-32) mEq/L Anion Gap (5-15) BUN (7-18) mg/dL Creatinine (0.55-1.02) mg/dL Est Cr Clr Drug Dosing mL/min Estimated GFR (MDRD) (>60) mL/min BUN/Creatinine Ratio (14-18) Glucose (70-99) mg/dL POC Glucose 142 H (70-99) mg/dL Calcium (8.5-10.1) mg/dL Troponin I < 0.017 (0.00-0.056) ng/mL MRSA (PCR) Negative 03/09/21 03/09/21 03/09/21 Range/Units 05:53 05:53 08:17 WBC 5.86 (3.98-10.04) K/mm3 RBC 2.85 L (3.98-5.22) M/mm3 Hgb 9.7 L (11.2-15.7) gm/dl Hct 29.8 L (34.1-44.9) % MCV 104.6 H (79.4-94.8) fl MCH 34.0 H (25.6-32.2) pg MCHC 32.6 (32.2-35.5) g/dl RDW Std Deviation 63.7 H (36.4-46.3) fL Plt Count 254 (182-369) K/mm3 MPV 9.8 (9.4-12.3) fl Neut % (Auto) 85.0 H (34.0-71.1) % Lymph % (Auto) 12.1 L (19.3-51.7) % [place] % (Auto) 2.4 L (4.7-12.5) % Eos % (Auto) 0.3 L (0.7-5.8) Baso % (Auto) 0.0 L (0.1-1.2) % Neut # (Auto) 4.98 (1.56-6.13) K/mm3 Lymph # (Auto) 0.71 L (1.18-3.74) K/mm3 [place] # (Auto) 0.14 L (0.24-0.36) K/mm3 Eos # (Auto) 0.02 L (0.04-0.36) K/mm3 Baso # (Auto) 0.00 L (0.01-0.08) K/mm3 Sodium 140 (136-145) mEq/L Potassium 3.9 (3.5-5.1) mEq/L Chloride 103 (98-107) mEq/L Carbon Dioxide 29 (21-32) mEq/L Anion Gap 11.9 (5-15) BUN 25 H (7-18) mg/dL Creatinine 1.2 H (0.55-1.02) mg/dL Est Cr Clr Drug Dosing 30.14 mL/min Estimated GFR (MDRD) 43 (>60) mL/min BUN/Creatinine Ratio 20.8 H (14-18) Glucose 132 H (70-99) mg/dL POC Glucose 132 H (70-99) mg/dL Calcium 8.5 (8.5-10.1) mg/dL Troponin I (0.00-0.056) ng/mL MRSA (PCR) [facility] Results - Last 24 hrs: Microbiology 03/08/21 05:20 Aerobic Blood Culture - Preliminary Blood - Venous - Lab Draw NO GROWTH AFTER 1 DAY Anaerobic Blood Culture - Preliminary NO GROWTH AFTER 1 DAY 03/08/21 04:50 Aerobic Blood Culture - Preliminary Blood - Venous NO GROWTH AFTER 1 DAY Anaerobic Blood Culture - Preliminary NO GROWTH AFTER 1 DAY Med Orders - Current: Current Medications Acetaminophen (Acetaminophen 325 Mg Tab) 650 mg PO Q6H PRN PRN Reason: Pain Amlodipine Besylate (Amlodipine 5 Mg Tab Own Med) 5 mg PO DAILY [facility] Last Admin: 03/09/21 08:12 Dose: 5 mg Documented by: Aspirin (Aspirin 81 Mg Tab.Chew) 81 mg PO DAILY [facility] Last Admin: 03/09/21 08:14 Dose: 81 mg Documented by: Enoxaparin Sodium (Enoxaparin 30 Mg/0.3 Ml Syringe) 30 mg SUBCUT Q24H [facility] Last Admin: 03/08/21 16:41 Dose: 30 mg Documented by: Folic Acid (Folic Acid 1 Mg Tab Own Med) 1 mg PO DAILY [facility] Last Admin: 03/09/21 08:11 Dose: 1 mg Documented by: Furosemide (Furosemide 20 Mg Tab Own Med) 20 mg PO DAILY [facility] Last Admin: 03/09/21 08:12 Dose: 20 mg Documented by: Ceftriaxone Sodium 1 gm/ (Sodium Chloride) 100 mls @ 200 mls/hr IV Q24H [facility] Stop: 03/15/21 10:29 Last Admin: 03/09/21 09:43 Dose: 200 mls/hr Documented by: Insulin Glargine (Insulin Glarg,Human.Rec.Analog 100 Unit/Ml) 13 unit SUBCUT DAILY [facility] Last Admin: 03/09/21 08:14 Dose: 13 units Documented by: Latanoprost (Latanoprost 0.005% Ophth Own Med) 0 ml EYEBOTH BEDTIME [facility] Last Admin: 03/08/21 20:00 Dose: 1 drop Documented by: Levothyroxine Sodium (Levothyroxine 75 Mcg Tab Own Med) 75 mcg PO ACBREAKFAST [facility] Last Admin: 03/09/21 05:08 Dose: 75 mcg Documented by: Lisinopril (Lisinopril 20 Mg Tab Own Med) 40 mg PO DAILY [facility] Last Admin: 03/09/21 08:13 Dose: 40 mg Documented by: Morphine Sulfate (Morphine 2 Mg/Ml Syringe) 1 mg IVPUSH Q4H PRN PRN Reason: Pain Nitroglycerin (Nitroglycerin 0.4 Mg Tab.Sl) 0.4 mg SL ASDIRECTED PRN PRN Reason: Chest Pain Metoprolol Succinate 100 Mg Tab Own Med 0 mg PO DAILY [facility] Last Admin: 03/09/21 08:13 Dose: 1 mg Documented by: Non-Formulary Medication (Olanzapine) 10 mg PO ASDIRECTED PRN PRN Reason: Other Ondansetron HCl (Ondansetron 4 Mg/2 Ml Sdv) 4 mg IVPUSH Q8H PRN PRN Reason: Nausea Last Admin: 03/09/21 08:20 Dose: 4 mg Documented by: Ondansetron HCl (Ondansetron 4 Mg Tab.Dis) 4 mg PO Q6H PRN PRN Reason: Nausea Prochlorperazine Maleate (Prochlorperazine 5 Mg Tab) 10 mg PO QID PRN PRN Reason: Nausea Psyllium Husk (Psyllium Husk Powder Sugar Free 5.85 Gm Packet) 0 pkt PO BID [facility] Last Admin: 03/09/21 08:14 Dose: 1 pkt Documented by: Tramadol HCl (Tramadol 50 Mg Tab Own Med) 50 mg PO Q6H PRN PRN Reason: Pain Last Admin: 03/09/21 04:51 Dose: 50 mg Documented by: Discontinued Medications Acetaminophen (Acetaminophen 325 Mg Tab) 650 mg PO Q4H PRN PRN Reason: Pain Furosemide (Furosemide 40 Mg/4 Ml Vial) 40 mg IVPUSH NOW ONE Stop: 03/08/21 07:18 Last Admin: 03/08/21 10:03 Dose: 40 mg Documented by: Furosemide (Furosemide 40 Mg/4 Ml Vial) Confirm Administered Dose 40 mg .ROUTE .STK-MED ONE Stop: 03/08/21 09:54 Last Admin: 03/08/21 10:07 Dose: Not Given Documented by: Ceftriaxone Sodium 2 gm/ (Sodium Chloride) 100 mls @ 200 mls/hr IV Q24H [facility] Last Admin: 03/08/21 10:02 Dose: 200 mls/hr Documented by: Sodium Chloride (Normal Saline) 1,000 mls @ 75 mls/hr IV ASDIRECTED LUCIO Stop: 03/09/21 04:01 Ceftriaxone Sodium 1 gm/ (Sodium Chloride) 100 mls @ 200 mls/hr IV Q24H [facility] Morphine Sulfate (Morphine 4 Mg/Ml Syringe) 4 mg IM ONETIME ONE Stop: 03/08/21 05:00 Last Admin: 03/08/21 06:01 Dose: Not Given Documented by: Ondansetron HCl (Ondansetron 4 Mg/2 Ml Sdv) 4 mg IVPUSH ONETIME ONE Stop: 03/08/21 05:24 Last Admin: 03/08/21 05:47 Dose: 4 mg Documented by: Potassium Chloride (Potassium Chloride 20 Meq Tab.Er) 20 meq PO ONETIME ONE Stop: 03/08/21 07:18 Last Admin: 03/08/21 10:12 Dose: Not Given Documented by: Potassium Chloride (Potassium Chloride 20 Meq Tab.Er) 20 meq PO ONETIME ONE Stop: 03/08/21 10:16 Last Admin: 03/08/21 11:09 Dose: 20 meq Documented by:
[2021-03-09 11:29] VITALS: PULSE 75
== END 2021-03-09 13:50 ==
LOC: JD.ED 04:07 → JD.MS 08:12
PROVIDERS: ADMIT Hospitalist; ATTEND Hospitalist
DX: J96.01 Acute respiratory failure with hypoxia (principal); I13.0 Hypertensive heart and chronic kidney disease with heart failure and stage 1 through stage 4 chronic kidney disease, or unspecified chronic kidney disease; I50.9 Heart failure, unspecified; C34.90 Malignant neoplasm of unspecified part of unspecified bronchus or lung; C79.51 Secondary malignant neoplasm of bone; C79.31 Secondary malignant neoplasm of brain; E78.00 Pure hypercholesterolemia, unspecified; N18.9 Chronic kidney disease, unspecified; E11.22 Type 2 diabetes mellitus with diabetic chronic kidney disease; E03.9 Hypothyroidism, unspecified; I25.10 Atherosclerotic heart disease of native coronary artery without angina pectoris; T45.1X5A Adverse effect of antineoplastic and immunosuppressive drugs, initial encounter; Z20.822 Contact with and (suspected) exposure to COVID-19; Z88.5 Allergy status to narcotic agent; Z88.8 Allergy status to other drugs, medicaments and biological substances; Z88.2 Allergy status to sulfonamides; Z79.899 Other long term (current) drug therapy; Z79.82 Long term (current) use of aspirin; Z95.0 Presence of cardiac pacemaker; Z79.4 Long term (current) use of insulin; Z79.890 Hormone replacement therapy; Z98.890 Other specified postprocedural states
CPT/HCPCS: 36415; 71045; 80048; 80053; 81001; 82947; 83605; 83880; 84484; 85007; 85025; 85027; 85610; 85730; 87040; 87641; A9270; J0696; J1650; J1815; J1940; J2405; U0002; 96365; 96372; 96374; 96375; 96376; 99217; 99220; 99285; 99285-25; G0378

== ENCOUNTER 2021-03-23 15:09 | Inpatient (IN) | payer MEDICARE, BC ==
[2021-03-23] MEDS ORDERED: Sodium Chloride 0.9% 10 ML Syringe FLUSH PRN (15:30)
[2021-03-23] MEDS ORDERED: Ondansetron 4 MG/2 ML SDV IVPUSH ONE (15:57)
[2021-03-23] MEDS ORDERED: Morphine 2 MG/ML SYRINGE IVPUSH ONE ×2 (15:57→19:08)
--- NOTE | 2021-03-23 16:09 | EDM.PDOC ---
ED HPI GENERAL MEDICAL PROBLEM - General Chief Complaint: Lower Extremity Injury/Pain Stated Complaint: [facility] Time Seen by Provider: 03/23/21 15:18 Source of Information: Reports: Patient, RN Notes Reviewed History Limitations: Reports: No Limitations - History of Present Illness INITIAL COMMENTS - FREE TEXT/NARRATIVE: Patient is an 85-year-old female presenting to the emergency department from [facility]. Ambulance was initially summoned for complaints of left foot pain, however patient was found to have oxygen saturations of 75% on room air as well. Patient has been dealing with left foot pain for many months. She has a fungal infection on the foot for which she is using ketoconazole cream care. She is also taking tramadol for pain. This morning, she had an episode of vomiting and states that she vomited up all of her medications. She also states that she did choke on her vomit. After this episode she reports feeling more short of breath, however she states she has been feeling increasingly short of breath over the last few days. She also reports that she has been coughing more frequently over the last few days. Denies any chest pain or abdominal pain. She has been having chronic nausea since she completed her chemotherapy treatment in November. She takes Zofran ODT, 4 mg 3 times daily routinely for this. She did take it this morning, however vomited immediately thereafter. She denies any fever or chills. She has a history of lung cancer with recent metastases to the brain. She is had a right lower lobectomy. Cancer was found to have spread to her left lung which she has finished chemotherapy treatment for. She also completed radiation treatment for metastases to the brain. Patient and her family have recently met with hospice services and the plan is to proceed with these. Patient is a DNR/DNI. She states that she will not be receiving any further chemotherapy or radiation for her cancer. Room air saturation on arrival to ER was 79%. Patient was placed on 4 L of oxygen by nasal cannula with improvement to 93% noted. She was also noted to be mildly tachypneic at a rate of 23, slightly hypertensive at 158/83. Pulse was normal at 69. Temperature normal at 97.8. Left Feet Pain Score (Numeric/FACES): 10 - Related Data Allergies Allergy/AdvReac Type Severity Reaction Status Date / Time codeine Allergy Swollen Verified 03/08/21 04:12 Tongue duloxetine [From Cymbalta] Allergy Difficulty Verified 03/08/21 04:12 Breathing hydrocodone Allergy Swollen Verified 03/08/21 04:12 Tongue sulfamethoxazole Allergy Swelling Verified 03/08/21 04:12 [From Bactrim] trimethoprim [From Bactrim] Allergy Swelling Verified 03/08/21 04:12 fentanyl AdvReac Chest Pain Verified 03/08/21 04:12 hydromorphone [From Dilaudid] AdvReac Chills Verified 03/08/21 04:12 Home Meds: Home Meds Levothyroxine 75 mcg PO DAILY 12/10/15 [History] Lisinopril 40 mg PO DAILY 12/10/15 [History] Furosemide [Lasix] 20 mg PO DAILY #30 tablet 03/17/16 [Rx] Latanoprost 1 drop EYEBOTH BEDTIME 10/20/16 [History] Prochlorperazine [Compazine] 10 mg PO QID PRN 05/03/17 [History] Psyllium Husk [Metamucil] 1 tsp PO BID 07/30/17 [History] Aspirin 81 mg PO DAILY 03/17/18 [History] traMADol [Ultram] 50 mg PO Q6H PRN 03/17/18 [History] Cholecalciferol (Vitamin D3) [Vitamin D3] 2,000 units PO DAILY 12/30/18 [History] Ketoconazole [Nizoral 2% Crm] 1 applic TOP BID 12/30/18 [History] Nitroglycerin [Nitrostat] 0.4 mg PO ASDIRECTED PRN 09/24/20 [History] [place]-3/DHA/Epa/Fish Oil [[place] 3 500 Softgel] 1,000 mg PO DAILY 09/24/20 [History] Ondansetron [Zofran] 4 mg PO Q6H PRN 09/24/20 [History] atorvaSTATin [Lipitor] 40 mg PO BEDTIME 09/24/20 [History] Folic Acid 1 mg PO DAILY 03/08/21 [History] Insulin Glarg,Human.Rec.Analog [Lantus] 13 unit SUBCUT DAILY 03/08/21 [History] OLANZapine [ZyPREXA] 10 mg PO ASDIRECTED PRN 03/08/21 [History] Cefdinir [Omnicef] 300 mg PO BID 6 Days #12 cap 03/09/21 [Rx] Metoprolol Succinate [Toprol Xl] 100 mg PO DAILY 30 Days #30 tab 03/09/21 [Rx] Acetaminophen [Tylenol 8 Hour] 650 mg PO Q4HR PRN 03/23/21 [History] dexAMETHasone [Dexamethasone] 8 mg PO DAILY PRN 03/23/21 [History] Past Medical History HEENT History: Reports: Cataract, Glaucoma, Impaired Vision Other HEENT History: Wears glasses PRN Cardiovascular History: Reports: High Cholesterol, Hypertension, Pacemaker Other Cardiovascular History: chest pain/pressure, edema Respiratory History: Reports: SOB Other Respiratory History: Lung Cancer, Pulmonary nodule, Dyspnea on exertion. Patient reports right lower lobe lobectomy she believes 8 years ago. Followed with postoperative radiation to the right lung field. Currently has left lower lobe lung cancer with recent CT done showing increased nodularity. Genitourinary History: Reports: Chronic Renal Insuffiency Other Genitourinary History: Contrast dye induced nephropathy, Microalbuminuria [employer] History: Reports: Musculoskeletal History: Reports: Arthritis, Back Pain, Chronic, Fibromyalgia, Osteoarthritis, Osteoporosis Endocrine/Metabolic History: Reports: Diabetes, Type II, Hypothyroidism, Vitamin D Deficiency Other Endocrine/Metabolic History: DM II (diet controlled), goiter, thyroid nodule Hematologic History: Reports: Blood Transfusion(s) Oncologic (Cancer) History: Reports: Lung Other Oncologic History: Metastasis to brain- radiation treated - Infectious Disease History Infectious Disease History: Reports: Chicken Pox, Measles, MRSA, Mumps, Novel Coronavirus, Shingles Other Infectious Disease History: MRSA culture was negative Aug 2020 - cleared of MRSA. - Past Surgical History HEENT Surgical History: Reports: Cataract Surgery Cardiovascular Surgical History: Reports: Pacer Respiratory Surgical History: Reports: Thoracotomy Other Respiratory Surgeries/Procedures: Bronchoscopy,Thoracotomy with RLL lobectomy GI Surgical History: Reports: Appendectomy, Colonoscopy Female Surgical History: Reports: Hysterectomy, Salpingo-Oophorectomy Endocrine Surgical History: Reports: Thyroidectomy Neurological Surgical History: Reports: None Musculoskeletal Surgical History: Reports: Hip Replacement Other Musculoskeletal Surgeries/Procedures:: bilateral total hip replacement Oncologic Surgical History: Reports: Lobectomy, Other (See Below) Other Oncologic Surgeries/Procedures: lymph node biopsy Dermatological Surgical History: Reports: None Social & Family History - Family History Family Medical History: No Pertinent Family History - Tobacco Use Tobacco Use Status *Q: Never Tobacco User - Caffeine Use Caffeine Use: Reports: Soda - Recreational Drug Use Recreational Drug Use: No - Living Situation & Occupation Living situation: Reports: , with Spouse Occupation: Retired Review of Systems - Review of Systems Review Of Systems: See Below Constitutional: Denies: Chills, Fever Eyes: Reports: No Symptoms Ears: Reports: No Symptoms Nose: Reports: No Symptoms Mouth/Throat: Reports: No Symptoms Respiratory: Reports: Shortness of Breath, Pleuritic Chest Pain (With coughing), Cough Cardiovascular: Reports: No Symptoms. Denies: Chest Pain GI/Abdominal: Reports: No Symptoms Genitourinary: Reports: No Symptoms Musculoskeletal: Reports: Other (Left foot pain) Skin: Reports: Rash (Top and posterior left foot) Neurological: Reports: No Symptoms. Denies: Confusion, Dizziness, Headache Psychiatric: Reports: No Symptoms. Denies: Confusion ED EXAM, GENERAL - Physical Exam Exam: See Below General Appearance: Alert, WD/WN, No Apparent Distress Eye Exam: Bilateral Eye: PERRL Respiratory/Chest: No Respiratory Distress, No Accessory Muscle Use, Decreased Breath Sounds (Throughout), Crackles (Faint on right). No: Rhonchi, Wheezing, Stridor Cardiovascular: Normal Peripheral Pulses, Regular Rate, Rhythm, No Edema, No Gallop, No JVD, No Murmur, No Rub GI/Abdominal: Normal Bowel Sounds, Soft, Non-Tender, No Organomegaly, No Distention, No Abnormal Bruit, No Mass Extremities: Other (Fungal rash to the top of the left foot and posterior left foot. No swelling or erythema noted.) Neurological: Alert, Oriented, CN II-XII Intact, Normal Cognition, Normal Gait, Normal Reflexes, No Motor/Sensory Deficits Psychiatric: Normal Affect, Normal Mood Skin Exam: Warm, Dry, Intact, Normal Color #1 Interpretation EKG Date: 03/23/21 Time: 15:18 Rhythm: NSR Rate (Beats/Min): 69 [place]: Normal P-Wave: Present QRS: Normal ST-T: Normal QT: Normal EKG Interpretation Comments: Sinus with PVCs and PACs Poor R wave progression EKG interpreted by Dr. Nick TSAI Course - Vital Signs Last Recorded V/S: Last Vital Signs Temp 97.8 F 03/23/21 15:17 Pulse 69 03/23/21 15:17 Resp 23 H 03/23/21 15:17 BP 158/83 H 03/23/21 15:17 Pulse Ox 79 L 03/23/21 15:17 - Orders/Labs/Meds Orders: Active Orders 24 hr Category Date Time Status Cardiac Monitoring [RC] CONTINUOUS Care 03/23/21 15:31 Active Insert Montes Catheter [Insert Urinary Catheter] [OM.PC] Care 03/23/21 18:45 Ordered Q24H Urinary Catheter Assessment [RC] ASDIRECTED Care 03/23/21 18:31 Active Chest 1V Frontal [CR] Stat Exams 03/23/21 15:30 Taken CULTURE BLOOD [BC] Stat Lab 03/23/21 15:53 Received CULTURE BLOOD [BC] Stat Lab 03/23/21 16:10 Received Cholecalciferol (Vitamin D3) [Vitamin D3] Med 03/24/21 09:00 Active 50 mcg PO DAILY Folic Acid Med 03/24/21 09:00 Active 1 mg PO DAILY Insulin Glarg,Human.Rec.Analog [LantUS] Med 03/24/21 09:00 Active 13 unit SUBCUT DAILY Latanoprost [Xalatan 0.005% Ophth Soln] Med 03/23/21 21:00 Active 0 ml EYEBOTH BEDTIME Levothyroxine Med 03/24/21 06:00 Active 75 mcg PO ACBRK Metoprolol Succinate [Toprol XL] Med 03/24/21 09:00 Active 100 mg PO DAILY Ondansetron [Zofran ODT] Med 03/23/21 18:42 Active 4 mg PO Q6H PRN Prochlorperazine [Compazine] Med 03/23/21 18:32 Active 10 mg PO QID PRN Psyllium Husk [Metamucil] Med 03/23/21 21:00 Ordered 1 tsp PO BID Sodium Chloride 0.9% [Saline Flush] Med 03/23/21 15:30 Active 10 ml FLUSH ASDIRECTED PRN dexAMETHasone Med 03/23/21 18:32 Pending 8 mg PO DAILY PRN lisinopriL [Prinivil] Med 03/24/21 09:00 Active 40 mg PO DAILY Blood Culture x2 Reflex Set [OM.PC] Stat Oth 03/23/21 15:31 Ordered Saline Lock Insert [OM.PC] Stat Oth 03/23/21 15:31 Ordered EKG 12 Lead [EK] Stat Ther 03/23/21 15:31 Ordered Medication Orders Acetaminophen (Acetaminophen 325 Mg Tab) 650 mg PO Q4H PRN PRN Reason: Pain (Mild 1-3)/fever Cholecalciferol (Cholecalciferol (Vitamin D3) 25 Mcg Tab) 50 mcg PO DAILY PENDING SALE TO [facility] Dexamethasone (Dexamethasone 4 Mg Tab) 8 mg PO DAILY PRN PRN Reason: chemo Folic Acid (Folic Acid 1 Mg Tab) 1 mg PO DAILY PENDING SALE TO [facility] Furosemide (Furosemide 40 Mg/4 Ml Vial) 40 mg IVPUSH DAILY PENDING SALE TO [facility] Insulin Glargine (Insulin Glarg,Human.Rec.Analog 100 Unit/Ml) 13 unit SUBCUT DAILY PENDING SALE TO [facility] Insulin Human Regular (Insulin Regular, Human 100 Units/Ml 3 Ml Vial) 0 unit SUBCUT TIDPC ONE; Protocol Stop: 03/23/21 18:35 Latanoprost (Latanoprost 0.005% Ophth Soln 2.5 Ml Bottle) 0 ml EYEBOTH BEDTIME PENDING SALE TO [facility] Last Admin: 03/23/21 21:09 Dose: 1 drop Documented by: ILANA Levothyroxine Sodium (Levothyroxine 75 Mcg Tab) 75 mcg PO ACBRK PENDING SALE TO [facility] Lisinopril (Lisinopril 20 Mg Tab) 40 mg PO DAILY PENDING SALE TO [facility] Metoprolol Succinate (Metoprolol Succinate 50 Mg Tab.Er) 100 mg PO DAILY PENDING SALE TO [facility] Non-Formulary Medication (Psyllium Husk [Metamucil]) 1 tsp PO BID PENDING SALE TO [facility] Nystatin (Nystatin Crm 30 Gm Tube) 0 gm TOP QID PENDING SALE TO [facility] Last Admin: 03/23/21 21:06 Dose: 1 applic Documented by: ILANA Ondansetron HCl (Ondansetron 4 Mg Tab.Dis) 4 mg PO Q6H PRN PRN Reason: Nausea Pantoprazole Sodium (Pantoprazole 40 Mg Vial) 40 mg IV Q12HR PENDING SALE TO [facility] Last Admin: 03/23/21 21:07 Dose: 40 mg Documented by: ILANA Prochlorperazine Maleate (Prochlorperazine 5 Mg Tab) 10 mg PO QID PRN PRN Reason: Nausea Sodium Chloride (Sodium Chloride 0.9% 10 Ml Syringe) 10 ml FLUSH ASDIRECTED PRN PRN Reason: Keep Vein Open Last Admin: 03/23/21 15:39 Dose: 10 ml Documented by: ELIZABETH Tramadol HCl (Tramadol 50 Mg Tab) 50 mg PO Q6H LUCIO Last Admin: 03/23/21 20:56 Dose: 50 mg Documented by: ILANA Labs: Laboratory Tests 03/23/21 03/23/21 03/23/21 Range/Units 15:53 15:53 15:53 WBC 6.93 (3.98-10.04) K/mm3 RBC 2.16 L (3.98-5.22) M/mm3 Hgb 7.5 L D (11.2-15.7) gm/dl Hct 23.5 L (34.1-44.9) % MCV 108.8 H D (79.4-94.8) fl MCH 34.7 H (25.6-32.2) pg MCHC 31.9 L (32.2-35.5) g/dl RDW Std Deviation 72.7 H (36.4-46.3) fL Plt Count 166 L D (182-369) K/mm3 MPV 10.3 (9.4-12.3) fl Neutrophils % (Manual) 80 H (40-60) % Band Neutrophils % 0 (0-10) % Lymphocytes % (Manual) 14 L (20-40) % Atypical Lymphs % 0 % Monocytes % (Manual) 6 (2-10) % Eosinophils % (Manual) 0 L (0.7-5.8) % Basophils % (Manual) 0 L (0.1-1.2) Platelet Estimate Adequate Macrocytosis 2+ moderate Target Cells 1+ slight PT 10.6 (9.7-12.0) SECONDS INR 0.99 APTT 25.9 (21.7-31.4) SECONDS Sodium 140 (136-145) mEq/L Potassium 4.2 (3.5-5.1) mEq/L Chloride 103 (98-107) mEq/L Carbon Dioxide 27 (21-32) mEq/L Anion Gap 14.2 (5-15) BUN 17 (7-18) mg/dL Creatinine 1.6 H (0.55-1.02) mg/dL Est Cr Clr Drug Dosing 22.60 mL/min Estimated GFR (MDRD) 31 (>60) mL/min BUN/Creatinine Ratio 10.6 L (14-18) Glucose 145 H (70-99) mg/dL Lactic Acid (0.4-2.0) mmol/L Calcium 8.6 (8.5-10.1) mg/dL Total Bilirubin 0.8 (0.2-1.0) mg/dL AST 23 (15-37) U/L ALT 35 (14-59) U/L Alkaline Phosphatase 60 (46-116) U/L Troponin I 0.039 (0.00-0.056) ng/mL C-Reactive Protein 6.6 H* (<1.0) mg/dL NT-Pro-B Natriuret Pep (0-450) pg/mL Total Protein 6.4 (6.4-8.2) g/dl Albumin 2.9 L (3.4-5.0) g/dl Globulin 3.5 gm/dL Albumin/Globulin Ratio 0.8 L (1-2) Urine Color (Yellow) Urine Appearance (Clear) Urine pH (5.0-8.0) Ur Specific [place] (1.005-1.030) Urine Protein (Negative) Urine Glucose (UA) (Negative) Urine Ketones (Negative) Urine Occult Blood (Negative) Urine Nitrite (Negative) Urine Bilirubin (Negative) Urine Urobilinogen (0.2-1.0) Ur Leukocyte Esterase (Negative) Urine RBC (0-5) /hpf Urine WBC (0-5) /hpf Ur Epithelial Cells (0-5) /hpf Urine Bacteria (FEW) /hpf Urine Mucus (FEW) /hpf SARS-CoV-2 RNA (CATIE) (NEGATIVE) Blood Type Gel Antibody Screen 03/23/21 03/23/21 03/23/21 Range/Units 15:53 15:53 17:40 WBC (3.98-10.04) K/mm3 RBC (3.98-5.22) M/mm3 Hgb (11.2-15.7) gm/dl Hct (34.1-44.9) % MCV (79.4-94.8) fl MCH (25.6-32.2) pg MCHC (32.2-35.5) g/dl RDW Std Deviation (36.4-46.3) fL Plt Count (182-369) K/mm3 MPV (9.4-12.3) fl Neutrophils % (Manual) (40-60) % Band Neutrophils % (0-10) % Lymphocytes % (Manual) (20-40) % Atypical Lymphs % % Monocytes % (Manual) (2-10) % Eosinophils % (Manual) (0.7-5.8) % Basophils % (Manual) (0.1-1.2) Platelet Estimate Macrocytosis Target Cells PT (9.7-12.0) SECONDS INR APTT (21.7-31.4) SECONDS Sodium (136-145) mEq/L Potassium (3.5-5.1) mEq/L Chloride (98-107) mEq/L Carbon Dioxide (21-32) mEq/L Anion Gap (5-15) BUN (7-18) mg/dL Creatinine (0.55-1.02) mg/dL Est Cr Clr Drug Dosing mL/min Estimated GFR (MDRD) (>60) mL/min BUN/Creatinine Ratio (14-18) Glucose (70-99) mg/dL Lactic Acid 0.9 (0.4-2.0) mmol/L Calcium (8.5-10.1) mg/dL Total Bilirubin (0.2-1.0) mg/dL AST (15-37) U/L ALT (14-59) U/L Alkaline Phosphatase (46-116) U/L Troponin I (0.00-0.056) ng/mL C-Reactive Protein (<1.0) mg/dL NT-Pro-B Natriuret Pep 9361 H (0-450) pg/mL Total Protein (6.4-8.2) g/dl Albumin (3.4-5.0) g/dl Globulin gm/dL Albumin/Globulin Ratio (1-2) Urine Color (Yellow) Urine Appearance (Clear) Urine pH (5.0-8.0) Ur Specific [place] (1.005-1.030) Urine Protein (Negative) Urine Glucose (UA) (Negative) Urine Ketones (Negative) Urine Occult Blood (Negative) Urine Nitrite (Negative) Urine Bilirubin (Negative) Urine Urobilinogen (0.2-1.0) Ur Leukocyte Esterase (Negative) Urine RBC (0-5) /hpf Urine WBC (0-5) /hpf Ur Epithelial Cells (0-5) /hpf Urine Bacteria (FEW) /hpf Urine Mucus (FEW) /hpf SARS-CoV-2 RNA (CATIE) (NEGATIVE) Blood Type A POSITIVE Gel Antibody Screen Negative 03/23/21 03/23/21 Range/Units 17:56 18:25 WBC (3.98-10.04) K/mm3 RBC (3.98-5.22) M/mm3 Hgb (11.2-15.7) gm/dl Hct (34.1-44.9) % MCV (79.4-94.8) fl MCH (25.6-32.2) pg MCHC (32.2-35.5) g/dl RDW Std Deviation (36.4-46.3) fL Plt Count (182-369) K/mm3 MPV (9.4-12.3) fl Neutrophils % (Manual) (40-60) % Band Neutrophils % (0-10) % Lymphocytes % (Manual) (20-40) % Atypical Lymphs % % Monocytes % (Manual) (2-10) % Eosinophils % (Manual) (0.7-5.8) % Basophils % (Manual) (0.1-1.2) Platelet Estimate Macrocytosis Target Cells PT (9.7-12.0) SECONDS INR APTT (21.7-31.4) SECONDS Sodium (136-145) mEq/L Potassium (3.5-5.1) mEq/L Chloride (98-107) mEq/L Carbon Dioxide (21-32) mEq/L Anion Gap (5-15) BUN (7-18) mg/dL Creatinine (0.55-1.02) mg/dL Est Cr Clr Drug Dosing mL/min Estimated GFR (MDRD) (>60) mL/min BUN/Creatinine Ratio (14-18) Glucose (70-99) mg/dL Lactic Acid (0.4-2.0) mmol/L Calcium (8.5-10.1) mg/dL Total Bilirubin (0.2-1.0) mg/dL AST (15-37) U/L ALT (14-59) U/L Alkaline Phosphatase (46-116) U/L Troponin I (0.00-0.056) ng/mL C-Reactive Protein (<1.0) mg/dL NT-Pro-B Natriuret Pep (0-450) pg/mL Total Protein (6.4-8.2) g/dl Albumin (3.4-5.0) g/dl Globulin gm/dL Albumin/Globulin Ratio (1-2) Urine Color Light yellow (Yellow) Urine Appearance Clear (Clear) Urine pH 7.5 (5.0-8.0) Ur Specific [place] 1.020 (1.005-1.030) Urine Protein Trace H (Negative) Urine Glucose (UA) Negative (Negative) Urine Ketones Negative (Negative) Urine Occult Blood Negative (Negative) Urine Nitrite Positive H (Negative) Urine Bilirubin Negative (Negative) Urine Urobilinogen 0.2 (0.2-1.0) Ur Leukocyte Esterase Negative (Negative) Urine RBC 0-5 (0-5) /hpf Urine WBC 0-5 (0-5) /hpf Ur Epithelial Cells 5-10 H (0-5) /hpf Urine Bacteria Few (FEW) /hpf Urine Mucus Few (FEW) /hpf SARS-CoV-2 RNA (CATIE) Negative (NEGATIVE) Blood Type Gel Antibody Screen Meds: Medications Generic Name Dose Route Start Last Admin Trade Name Freq PRN Reason Stop Dose Admin Acetaminophen 650 mg 03/23/21 18:34 Acetaminophen 325 Mg Tab PO Q4H PRN Pain (Mild 1-3)/fever Cholecalciferol 50 mcg 03/24/21 09:00 Cholecalciferol (Vitamin D3) 25 Mcg Tab PO DAILY PENDING SALE TO [facility] Dexamethasone 8 mg 03/23/21 18:32 Dexamethasone 4 Mg Tab PO DAILY PRN chemo Folic Acid 1 mg 03/24/21 09:00 Folic Acid 1 Mg Tab PO DAILY PENDING SALE TO [facility] Furosemide 40 mg 03/24/21 09:00 Furosemide 40 Mg/4 Ml Vial IVPUSH DAILY PENDING SALE TO [facility] Insulin Glargine 13 unit 03/24/21 09:00 Insulin Glarg,Human.Rec.Analog 100 Unit/Ml SUBCUT DAILY PENDING SALE TO [facility] Insulin Human Regular 0 unit 03/23/21 18:34 Insulin Regular, Human 100 Units/Ml 3 Ml Vial SUBCUT 03/23/21 18:35 TIDPC ONE Protocol Latanoprost 0 ml 03/23/21 21:00 03/23/21 21:09 Latanoprost 0.005% Ophth Soln 2.5 Ml Bottle EYEBOTH 1 drop BEDTIME LUCIO Administration Levothyroxine Sodium 75 mcg 03/24/21 06:00 Levothyroxine 75 Mcg Tab PO ACBRK PENDING SALE TO [facility] Lisinopril 40 mg 06/28/21 09:00 Lisinopril 20 Mg Tab PO DAILY PENDING SALE TO [facility] Metoprolol Succinate 100 mg 03/24/21 09:00 Metoprolol Succinate 50 Mg Tab.Er PO DAILY PENDING SALE TO [facility] Non-Formulary Medication 1 tsp 03/23/21 21:00 Psyllium Husk [Metamucil] PO BID PENDING SALE TO [facility] Nystatin 0 gm 03/23/21 21:00 03/23/21 21:06 Nystatin Crm 30 Gm Tube TOP 1 applic QID LUCIO Administration Ondansetron HCl 4 mg 03/23/21 18:42 Ondansetron 4 Mg Tab.Dis PO Q6H PRN Nausea Pantoprazole Sodium 40 mg 03/23/21 21:00 03/23/21 21:07 Pantoprazole 40 Mg Vial IV 40 mg Q12HR LUCIO Administration Prochlorperazine Maleate 10 mg 03/23/21 18:32 Prochlorperazine 5 Mg Tab PO QID PRN Nausea Sodium Chloride 10 ml 03/23/21 15:30 03/23/21 15:39 Sodium Chloride 0.9% 10 Ml Syringe FLUSH 10 ml ASDIRECTED PRN Administration Keep Vein Open Tramadol HCl 50 mg 03/23/21 21:00 03/23/21 20:56 Tramadol 50 Mg Tab PO 50 mg Q6H PENDING SALE TO [facility] Administration Discontinued Medications Generic Name Dose Route Start Last Admin Trade Name Freq PRN Reason Stop Dose Admin Furosemide 40 mg 03/23/21 17:38 03/23/21 17:48 Furosemide 40 Mg/4 Ml Vial IVPUSH 03/23/21 17:39 40 mg ONETIME ONE Administration Insulin Human Regular 0 unit 03/23/21 18:34 03/23/21 21:08 Insulin Regular, Human 100 Units/Ml 3 Ml Vial SUBCUT 03/23/21 18:35 Not Given TIDPC ONE Protocol Lidocaine HCl 5 ml 03/23/21 18:45 03/23/21 19:01 Lidocaine 2% Jelly 5 Ml Tube TOP 03/23/21 18:46 1 cartridge ONETIME ONE Administration Morphine Sulfate 1 mg 03/23/21 15:57 03/23/21 16:16 Morphine 2 Mg/Ml Syringe IVPUSH 03/23/21 15:58 1 mg ONETIME ONE Administration Morphine Sulfate 1 mg 03/23/21 19:08 03/23/21 19:12 Morphine 2 Mg/Ml Syringe IVPUSH 03/23/21 19:09 1 mg ONETIME ONE Administration Non-Formulary Medication 10 mg 03/23/21 18:32 Olanzapine PO ASDIRECTED PRN Other Ondansetron HCl 4 mg 03/23/21 15:57 03/23/21 16:19 Ondansetron 4 Mg/2 Ml Sdv IVPUSH 03/23/21 15:58 4 mg ONETIME ONE Administration Oxycodone HCl 5 mg 03/23/21 18:34 Oxycodone 5 Mg Tab PO Q4H PRN Pain (moderate 4-6) Pantoprazole Sodium 40 mg 03/23/21 17:37 03/23/21 17:50 Pantoprazole 40 Mg Vial IVPUSH 03/23/21 17:38 40 mg ONETIME ONE Administration - Re-Assessments/Exams Free Text/Narrative Re-Assessment/Exam: A 85-year-old female presenting to the emergency department with complaints of left foot pain. She was also found to have an oxygen saturation of 75% on room air. Oxygen was applied and she is currently saturating in the low to mid 90s on 4 L of oxygen. Patient was recently discharged from this facility approximately 2 weeks ago due to CHF exacerbation. She was discharged home on room air with oxygen saturations in the upper 90s. She reports that she has been feeling increasingly short of breath over the last few days. This morning she did have an episode of vomiting immediately after taking her pills and states that she did choke on her vomit. She reports that after this episode she did feel increasingly short of breath. This is concerning for possible aspira tion . On exam, she does have a fungal rash to the top of her foot as well as heel. She has been applying ketoconazole cream for this. She takes tramadol for pain, however states that she vomited up with her morning pills. Lung sounds are diminished. There are some faint crackles in the right lung. Exam is otherwise unremarkable. I have ordered morphine 1 mg IV as well as Zofran 4 mg IV. I have ordered a septic work-up. 03/23/21 17:40 Lab results reviewed, hemoglobin today is currently 7.5 on review of lab results 2 weeks ago was 9.7. I did visit with the patient and she reports that she has been having black stools daily for the last few weeks. Reports that they have not been loose. I did do a rectal exam. Only a very small amount of stool was able to be obtained. It was not dark in color, however it was Hemoccult positive. CRP is minimally elevated at 6.6, proBNP significantly elevated 9361. Prior to diuresis 2 weeks ago her proBNP was 4147. Chest x-ray shows diffuse pulmonary vascular congestion suggestive of CHF exacerbation. I have ordered Protonix 40 mg IV as well as Lasix 40 mg IV to be given now. Patient does have improvement in her left foot pain with the morphine given. 03/23/21 18:14 Case was discussed with hospitalist, Dr. Mirza. He has accepted patient for admission. Departure - Departure Time of Disposition: 18:14 Disposition: Admitted As Inpatient 67 Condition: Fair Clinical Impression: Hypoxemia Metastatic cancer Qualifiers: Area of secondary neoplastic involvement: nervous system structure Nervous system structure secondary neoplasm location: metastatic to brain Qualified Code(s): C79.31 - Secondary malignant neoplasm of brain Lung cancer Qualifiers: Laterality: left Lung location: unspecified part of lung Qualified Code(s): C34.92 - Malignant neoplasm of unspecified part of left bronchus or lung Chronic renal insufficiency, stage III (moderate) Qualifiers: Chronic kidney disease stage 3 subtype: stage 3b (GFR 30-44) Qualified Code(s): N18.32 - Chronic kidney disease, stage 3b CHF exacerbation Qualifiers: Heart failure type: unspecified Qualified Code(s): I50.9 - Heart failure, unspecified Anemia Qualifiers: Anemia type: unspecified type Qualified Code(s): D64.9 - Anemia, unspecified GI bleed Qualifiers: GI bleed type/associated pathology: unspecified gastrointestinal hemorrhage type Qualified Code(s): K92.2 - Gastrointestinal hemorrhage, unspecified - Discharge Information Sepsis Event Note (ED) - Evaluation Sepsis Screening Result: No Definite Risk - Focused Exam Vital Signs: Vital Signs Temp Pulse Resp BP Pulse Ox 03/23/21 15:17 97.8 F 69 23 H 158/83 H 79 L - My Orders Last 24 Hours: My Active Orders 03/23/21 15:30 Chest 1V Frontal [CR] Stat Sodium Chloride 0.9% [Saline Flush] 10 ml FLUSH ASDIRECTED PRN 03/23/21 15:31 Cardiac Monitoring [RC] CONTINUOUS Blood Culture x2 Reflex Set [OM.PC] Stat Saline Lock Insert [OM.PC] Stat EKG 12 Lead [EK] Stat 03/23/21 15:53 CULTURE BLOOD [BC] Stat 03/23/21 16:10 CULTURE BLOOD [BC] Stat - Assessment/Plan Last 24 Hours: My Active Orders 03/23/21 15:30 Chest 1V Frontal [CR] Stat Sodium Chloride 0.9% [Saline Flush] 10 ml FLUSH ASDIRECTED PRN 03/23/21 15:31 Cardiac Monitoring [RC] CONTINUOUS Blood Culture x2 Reflex Set [OM.PC] Stat Saline Lock Insert [OM.PC] Stat EKG 12 Lead [EK] Stat 03/23/21 15:53 CULTURE BLOOD [BC] Stat 03/23/21 16:10 CULTURE BLOOD [BC] Stat
[2021-03-23] MEDS ORDERED: Pantoprazole 40 MG Vial IVPUSH ONE (17:37)
[2021-03-23] MEDS ORDERED: Furosemide 40 MG/4 ML VIAL IVPUSH ONE (17:38)
[2021-03-23] MEDS ORDERED: Prochlorperazine 5 MG Tab PO PRN (18:32)
[2021-03-23] MEDS ORDERED: OLANZAPINE 10 MG PO PRN (18:32)
[2021-03-23] MEDS ORDERED: Insulin Regular, Human 100 Units/ML 3 ML Vial SUBCUT ONE (18:34)
[2021-03-23] MEDS ORDERED: oxyCODONE 5 MG Tab PO PRN (18:34)
[2021-03-23] MEDS ORDERED: Acetaminophen 325 MG Tab PO PRN (18:34)
[2021-03-23] MEDS ORDERED: Ondansetron 4 MG Tab.DIS PO PRN (18:42)
[2021-03-23] MEDS ORDERED: Lidocaine 2% Jelly 5 ML Tube TOP ONE (18:45)
--- NOTE | 2021-03-23 18:49 | PCM.HP.2 ---
H&P History of Present Illness - General Date of Service: 03/23/21 Admit Problem/Dx: Admission Diagnosis/Problem Admission Diagnosis/Problem Congestive heart failure Source of Information: Patient, Family History Limitations: Reports: No Limitations - History of Present Illness Initial Comments - Free Text/Narative: The patient is an 85-year-old lady who is chronically ill and medically complex. The patient was found to be desaturating in her [place] assisted living ce nter and had oxygen saturations of 75% on room air. The patient was recently discharged from acute hospitalization here on March 12, 2021. She had been admitted then for worsening of congestive heart failure. The patient also says her primary concern is left foot pain. Patient says that she also has a rash to her left foot but the pain has been so severe. The patient's pain is located predominantly in her left foot and does not seem to radiate. The patient says that the tramadol that she has been taking is only providing temporary relief. The patient also says that she prior to presentation had an episode of vomiting where she may have choked. She was unable to keep her medications down. She has been having chronic nausea and vomiting. The patient also had been complaining of black stools over the past several days. 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 The patient has a chemotherapy port as well as pacemaker present. Patient also has a history of right lower lobectomy. In the emergency department the patient was noted to have an oxygen saturation of 79%. The patient also has a history of chronic renal insufficiency and congestive heart failure. The patient also has been taking medication for her diabetes. Onset of Symptoms: Reports: Gradual Duration of Symptoms: Reports: Day(s): Quality: Reports: Stabbing Severity: Severe Improves with: Reports: None Worsens with: Reports: None Context: Reports: Other (Metastatic lung cancer and brain metastases) Associated Symptoms: Reports: Nausea/Vomiting Left Feet Pain Score (Numeric/FACES): 10 - Related Data Allergies/Adverse Reactions: Allergies Allergy/AdvReac Type Severity Reaction Status Date / Time codeine Allergy Swollen Verified 03/24/21 00:58 Tongue duloxetine [From Cymbalta] Allergy Difficulty Verified 03/24/21 00:58 Breathing hydrocodone Allergy Swollen Verified 03/24/21 00:58 Tongue sulfamethoxazole Allergy Swelling Verified 03/24/21 00:58 [From Bactrim] trimethoprim [From Bactrim] Allergy Swelling Verified 03/24/21 00:58 fentanyl AdvReac Chest Pain Verified 03/24/21 00:58 hydromorphone [From Dilaudid] AdvReac Chills Verified 03/24/21 00:58 Home Medications: Home Meds Levothyroxine 75 mcg PO DAILY 12/10/15 [History] Lisinopril 40 mg PO DAILY 12/10/15 [History] Furosemide [Lasix] 20 mg PO DAILY #30 tablet 03/17/16 [Rx] Latanoprost 1 drop EYEBOTH BEDTIME 10/20/16 [History] Prochlorperazine [Compazine] 10 mg PO QID PRN 05/03/17 [History] Psyllium Husk [Metamucil] 1 tsp PO BID 07/30/17 [History] Aspirin 81 mg PO DAILY 03/17/18 [History] traMADol [Ultram] 50 mg PO Q6H PRN 03/17/18 [History] Cholecalciferol (Vitamin D3) [Vitamin D3] 2,000 units PO DAILY 12/30/18 [History] Ketoconazole [Nizoral 2% Crm] 1 applic TOP BID 12/30/18 [History] Nitroglycerin [Nitrostat] 0.4 mg PO ASDIRECTED PRN 09/24/20 [History] Elwin-3/DHA/Epa/Fish Oil [Elwin 3 500 Softgel] 1,000 mg PO DAILY 09/24/20 [History] Ondansetron [Zofran] 4 mg PO Q6H PRN 09/24/20 [History] atorvaSTATin [Lipitor] 40 mg PO BEDTIME 09/24/20 [History] Folic Acid 1 mg PO DAILY 03/08/21 [History] Insulin Glarg,Human.Rec.Analog [Lantus] 13 unit SUBCUT DAILY 03/08/21 [History] OLANZapine [ZyPREXA] 10 mg PO ASDIRECTED PRN 03/08/21 [History] Cefdinir [Omnicef] 300 mg PO BID 6 Days #12 cap 03/09/21 [Rx] Metoprolol Succinate [Toprol Xl] 100 mg PO DAILY 30 Days #30 tab 06/13/21 [Rx] Acetaminophen [Tylenol 8 Hour] 650 mg PO Q4HR PRN 03/23/21 [History] dexAMETHasone [Dexamethasone] 8 mg PO DAILY PRN 03/23/21 [History] Past Medical History HEENT History: Reports: Cataract, Glaucoma, Impaired Vision Other HEENT History: Wears glasses PRN Cardiovascular History: Reports: High Cholesterol, Hypertension, Pacemaker Other Cardiovascular History: chest pain/pressure, edema Respiratory History: Reports: SOB Other Respiratory History: Lung Cancer, Pulmonary nodule, Dyspnea on exertion. Patient reports right lower lobe lobectomy she believes 8 years ago. Followed with postoperative radiation to the right lung field. Currently has left lower lobe lung cancer with recent CT done showing increased nodularity. 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: Musculoskeletal History: Reports: Arthritis, Back Pain, Chronic, Fibromyalgia, Osteoarthritis, Osteoporosis Neurological History: Reports: None Endocrine/Metabolic History: Reports: Diabetes, Type II, Hypothyroidism, Vitamin D Deficiency Other Endocrine/Metabolic History: DM II (diet controlled), goiter, thyroid nodule Hematologic History: Reports: Blood Transfusion(s) Oncologic (Cancer) History: Reports: Lung, Metastatic, Other (See Below) (Primary lung cancer) Other Oncologic History: Metastasis to brain- radiation treated - Infectious Disease History Infectious Disease History: Reports: Chicken Pox, Measles, MRSA, Mumps, Novel Coronavirus, Shingles Other Infectious Disease History: MRSA culture was negative Aug 2020 - cleared of MRSA. - Past Surgical History HEENT Surgical History: Reports: Cataract Surgery Cardiovascular Surgical History: Reports: Pacer Respiratory Surgical History: Reports: Thoracotomy Other Respiratory Surgeries/Procedures: Bronchoscopy,Thoracotomy with RLL lobectomy GI Surgical History: Reports: Appendectomy, Colonoscopy Female Surgical History: Reports: Hysterectomy, Salpingo-Oophorectomy Endocrine Surgical History: Reports: Thyroidectomy Neurological Surgical History: Reports: None Musculoskeletal Surgical History: Reports: Hip Replacement Other Musculoskeletal Surgeries/Procedures:: bilateral total hip replacement Oncologic Surgical History: Reports: Lobectomy, Other (See Below) Other Oncologic Surgeries/Procedures: lymph node biopsy Dermatological Surgical History: Reports: None Social & Family History - Family History Family Medical History: No Pertinent Family History - Tobacco Use Tobacco Use Status *Q: Never Tobacco User - Caffeine Use Caffeine Use: Reports: Soda - Recreational Drug Use Recreational Drug Use: No - Living Situation & Occupation Living situation: Reports: , with Spouse Occupation: Retired H&P Review of Systems - Review of Systems: Review Of Systems: See Below General: Reports: Weakness HEENT: Reports: Hearing Changes Pulmonary: Reports: Shortness of Breath, Wheezing Cardiovascular: Reports: Chest Pain, Edema Gastrointestinal: Reports: Black Stool, Nausea, Vomiting Genitourinary: Reports: No Symptoms Musculoskeletal: Reports: Foot Pain Skin: Reports: Rash Psychiatric: Reports: Depression Neurological: Reports: No Symptoms Hematologic/Lymphatic: Reports: Anemia Immunologic: Reports: No Symptoms Exam - Exam Exam: See Below - Vital Signs Vital Signs: Last Vital Signs Temp 36.6 C 03/23/21 15:17 Pulse 69 03/23/21 15:17 Resp 23 H 03/23/21 15:17 BP 158/83 H 03/23/21 15:17 Pulse Ox 79 L 03/23/21 15:17 Weight: 80.286 kg - Exam Quality Assessment: Supplemental Oxygen General: Alert, Oriented, Cooperative, Moderate Distress HEENT: Conjunctiva Clear, EACs Clear, EOMI, Mucosa Moist & [place], PERRLA Neck: Supple, Trachea Midline Lungs: Decreased Breath Sounds, Rales Cardiovascular: Regular Rate, Regular Rhythm GI/Abdominal Exam: Normal Bowel Sounds, Soft, Non-Tender, No Distention (Female) Exam: Deferred Rectal (Female) Exam: Deferred Back Exam: No: Normal Inspection (Appropriate for age), Full Range of Motion (Appropriate for age) Extremities: Normal Inspection, Pedal Edema Skin: Rash (Exquisitely tender rash dorsum and plantar surface left forefoot) Neuro Extensive - Mental Status: Alert, Oriented x3 Psychiatric: Alert, Depressed - Patient Data Lab Results Last 24 hrs: Laboratory Results - last 24 hr 03/23/21 03/23/21 03/23/21 Range/Units 15:53 15:53 15:53 WBC 6.93 (3.98-10.04) K/mm3 RBC 2.16 L (3.98-5.22) M/mm3 Hgb 7.5 L D (11.2-15.7) gm/dl Hct 23.5 L (34.1-44.9) % MCV 108.8 H D (79.4-94.8) fl MCH 34.7 H (25.6-32.2) pg MCHC 31.9 L (32.2-35.5) g/dl RDW Std Deviation 72.7 H (36.4-46.3) fL Plt Count 166 L D (182-369) K/mm3 MPV 10.3 (9.4-12.3) fl Neutrophils % (Manual) 80 H (40-60) % Band Neutrophils % 0 (0-10) % Lymphocytes % (Manual) 14 L (20-40) % Atypical Lymphs % 0 % Monocytes % (Manual) 6 (2-10) % Eosinophils % (Manual) 0 L (0.7-5.8) % Basophils % (Manual) 0 L (0.1-1.2) Platelet Estimate Adequate Macrocytosis 2+ moderate Target Cells 1+ slight PT 10.6 (9.7-12.0) SECONDS INR 0.99 APTT 25.9 (21.7-31.4) SECONDS Sodium 140 (136-145) mEq/L Potassium 4.2 (3.5-5.1) mEq/L Chloride 103 (98-107) mEq/L Carbon Dioxide 27 (21-32) mEq/L Anion Gap 14.2 (5-15) BUN 17 (7-18) mg/dL Creatinine 1.6 H (0.55-1.02) mg/dL Est Cr Clr Drug Dosing 22.60 mL/min Estimated GFR (MDRD) 31 (>60) mL/min BUN/Creatinine Ratio 10.6 L (14-18) Glucose 145 H (70-99) mg/dL Lactic Acid (0.4-2.0) mmol/L Calcium 8.6 (8.5-10.1) mg/dL Total Bilirubin 0.8 (0.2-1.0) mg/dL AST 23 (15-37) U/L ALT 35 (14-59) U/L Alkaline Phosphatase 60 (46-116) U/L Troponin I 0.039 (0.00-0.056) ng/mL C-Reactive Protein 6.6 H* (<1.0) mg/dL NT-Pro-B Natriuret Pep (0-450) pg/mL Total Protein 6.4 (6.4-8.2) g/dl Albumin 2.9 L (3.4-5.0) g/dl Globulin 3.5 gm/dL Albumin/Globulin Ratio 0.8 L (1-2) Urine Color (Yellow) Urine Appearance (Clear) Urine pH (5.0-8.0) Ur Specific [place] (1.005-1.030) Urine Protein (Negative) Urine Glucose (UA) (Negative) Urine Ketones (Negative) Urine Occult Blood (Negative) Urine Nitrite (Negative) Urine Bilirubin (Negative) Urine Urobilinogen (0.2-1.0) Ur Leukocyte Esterase (Negative) 03/23/21 03/23/21 03/23/21 Range/Units 15:53 15:53 18:25 WBC (3.98-10.04) K/mm3 RBC (3.98-5.22) M/mm3 Hgb (11.2-15.7) gm/dl Hct (34.1-44.9) % MCV (79.4-94.8) fl MCH (25.6-32.2) pg MCHC (32.2-35.5) g/dl RDW Std Deviation (36.4-46.3) fL Plt Count (182-369) K/mm3 MPV (9.4-12.3) fl Neutrophils % (Manual) (40-60) % Band Neutrophils % (0-10) % Lymphocytes % (Manual) (20-40) % Atypical Lymphs % % Monocytes % (Manual) (2-10) % Eosinophils % (Manual) (0.7-5.8) % Basophils % (Manual) (0.1-1.2) Platelet Estimate Macrocytosis Target Cells PT (9.7-12.0) SECONDS INR APTT (21.7-31.4) SECONDS Sodium (136-145) mEq/L Potassium (3.5-5.1) mEq/L Chloride (98-107) mEq/L Carbon Dioxide (21-32) mEq/L Anion Gap (5-15) BUN (7-18) mg/dL Creatinine (0.55-1.02) mg/dL Est Cr Clr Drug Dosing mL/min Estimated GFR (MDRD) (>60) mL/min BUN/Creatinine Ratio (14-18) Glucose (70-99) mg/dL Lactic Acid 0.9 (0.4-2.0) mmol/L Calcium (8.5-10.1) mg/dL Total Bilirubin (0.2-1.0) mg/dL AST (15-37) U/L ALT (14-59) U/L Alkaline Phosphatase (46-116) U/L Troponin I (0.00-0.056) ng/mL C-Reactive Protein (<1.0) mg/dL NT-Pro-B Natriuret Pep 9361 H (0-450) pg/mL Total Protein (6.4-8.2) g/dl Albumin (3.4-5.0) g/dl Globulin gm/dL Albumin/Globulin Ratio (1-2) Urine Color Light yellow (Yellow) Urine Appearance Clear (Clear) Urine pH 7.5 (5.0-8.0) Ur Specific [place] 1.020 (1.005-1.030) Urine Protein Trace H (Negative) Urine Glucose (UA) Negative (Negative) Urine Ketones Negative (Negative) Urine Occult Blood Negative (Negative) Urine Nitrite Positive H (Negative) Urine Bilirubin Negative (Negative) Urine Urobilinogen 0.2 (0.2-1.0) Ur Leukocyte Esterase Negative (Negative) Result Diagrams: 03/24/21 05:43 03/24/21 05:43 Sepsis Event Note - Evaluation Sepsis Screening Result: No Definite Risk - Focused Exam Vital Signs: Vital Signs Temp Pulse Resp BP Pulse Ox 03/23/21 15:17 36.6 C 69 23 H 158/83 H 79 L *Q Meaningful Use (ADM) - VTE *Q VTE Mechanical Contraindications *Q: At Risk for Falls VTE Pharmacological Contraindications *Q: Risk of Bleeding - Problem List (1) Congestive heart failure SNOMED Code(s): 85479298 ICD Code: I50.9 - HEART FAILURE, UNSPECIFIED Status: Chronic Priority: High Current Visit: Yes Problem Details: Acute on chronic (2) Metastatic adenocarcinoma to brain SNOMED Code(s): 200581172, 254333833 ICD Code: C79.31 - SECONDARY MALIGNANT NEOPLASM OF BRAIN Status: Chronic Priority: High Current Visit: Yes (3) Diabetes mellitus SNOMED Code(s): 99746491 ICD Code: E11.9 - TYPE 2 DIABETES MELLITUS WITHOUT COMPLICATIONS Status: Chronic Priority: Medium Current Visit: Yes Qualifiers: Diabetes mellitus type: type 2 Diabetes mellitus exterminator helper insulin use: without retirement use Diabetes mellitus complication status: with neurologic complications Diabetes mellitus complication detail: with mononeuropathy Qualified Code(s): E11.41 - Type 2 diabetes mellitus with diabetic mononeuropathy (4) Hypertension SNOMED Code(s): 44683001 ICD Code: I10 - ESSENTIAL (PRIMARY) HYPERTENSION Status: Chronic Priority: Medium Current Visit: Yes Qualifiers: Hypertension type: essential hypertension Qualified Code(s): I10 - Essential (primary) hypertension (5) Lung cancer SNOMED Code(s): 980759571 ICD Code: C34.90 - MALIGNANT NEOPLASM OF UNSP PART OF UNSP BRONCHUS OR LUNG Status: Chronic Priority: Medium Current Visit: Yes Qualifiers: Laterality: left Lung location: unspecified part of lung Qualified Code(s): C34.92 - Malignant neoplasm of unspecified part of left bronchus or lung (6) History of cardiac pacemaker SNOMED Code(s): 057644357 ICD Code: Z95.0 - PRESENCE OF CARDIAC PACEMAKER Status: Chronic Priority: Medium Current Visit: Yes (7) Chronic renal insufficiency, stage III (moderate) SNOMED Code(s): 049092801 ICD Code: N18.30 - CHRONIC KIDNEY DISEASE, STAGE 3 UNSPECIFIED Status: Chronic Priority: Medium Current Visit: Yes Qualifiers: Chronic kidney disease stage 3 subtype: stage 3b (GFR 30-44) Qualified Code(s): N18.32 - Chronic kidney disease, stage 3b (8) Generalized weakness SNOMED Code(s): 61425004 ICD Code: R53.1 - WEAKNESS Status: Chronic Priority: Medium Current Visit: Yes (9) Anemia SNOMED Code(s): 828440627 ICD Code: D64.9 - ANEMIA, UNSPECIFIED Status: Chronic Priority: Medium Current Visit: Yes Qualifiers: Anemia type: due to chronic kidney disease Chronic kidney disease stage: stage 3 (moderate) Chronic kidney disease stage 3 subtype: stage 3b (GFR 30- 44) Qualified Code(s): N18.32 - Chronic kidney disease, stage 3b; D63.1 - Anemia in chronic kidney disease Problem List Initiated/Reviewed/Updated: Yes Orders Last 24hrs: Active Orders 24 hr Category Date Time Status Patient Status [ADT] Routine ADT 03/23/21 18:34 Ordered Blood Glucose Check, Bedside [RC] [facility] 03/23/21 18:34 Ordered Blood Glucose Check, Bedside [RC] WITHMEALSANDBED Care 03/23/21 18:34 Ordered Cardiac Monitoring [RC] CONTINUOUS Care 03/23/21 15:31 Active Insert Montes Catheter [Insert Urinary Catheter] [OM.PC] Care 03/23/21 18:45 Ordered Q24H Oxygen Therapy [RC] PRN Care 03/23/21 18:34 Ordered Oxygen Therapy, ED [RC] STAT Care 03/23/21 15:31 Active Up With Assistance [RC] ASDIRECTED Care 03/23/21 18:34 Ordered Urinary Catheter Assessment [RC] ASDIRECTED Care 03/23/21 18:31 Active VTE/DVT Education [RC] PER UNIT ROUTINE Care 03/23/21 18:34 Ordered Vital Signs [RC] Q4H Care 03/23/21 18:34 Ordered Consult to Case Management/Marketing Automation Manager [CONS] Cons 03/23/21 18:34 Ordered Routine OT Evaluation and Treatment [CONS] Routine Cons 03/23/21 18:34 Ordered PT Evaluation and Treatment [CONS] Routine Cons 03/23/21 18:34 Ordered Nothing per Oral Now Diet [DIET] Diet 03/23/21 Breakfast Ordered Chest 1V Frontal [CR] Stat Exams 03/23/21 15:30 Taken CBC WITH AUTO DIFF [HEME] AM Lab 03/24/21 05:11 Ordered COMPREHENSIVE METABOLIC PN,CMP [CHEM] AM Lab 03/24/21 05:11 Ordered CORONAVIRUS COVID-19 CATIE [MOLEC] Routine Lab 03/23/21 17:56 Received CULTURE BLOOD [BC] Stat Lab 03/23/21 15:53 Received CULTURE BLOOD [BC] Stat Lab 03/23/21 16:10 Received MAGNESIUM [CHEM] AM Lab 03/24/21 05:11 Ordered TYPE AND SCREEN [BBK] Stat Lab 03/23/21 17:40 Ordered UA W/MICROSCOPIC [URIN] Stat Lab 03/23/21 18:25 Results Acetaminophen [TylenoL] Med 03/23/21 18:34 Ordered 650 mg PO Q4H PRN Cholecalciferol (Vitamin D3) [Vitamin D3] Med 03/24/21 09:00 Ordered 2,000 units PO DAILY Folic Acid Med 03/24/21 09:00 Ordered 1 mg PO DAILY Furosemide [Lasix] Med 03/24/21 09:00 Ordered 40 mg IVPUSH DAILY Insulin Glarg,Human.Rec.Analog [LantUS] Med 03/24/21 09:00 Ordered 13 unit SUBCUT DAILY Insulin Regular, Human [HumuLIN R] Med 03/23/21 18:34 Once See Protocol SUBCUT TIDPC ONE Latanoprost [Xalatan 0.005% Ophth Soln] Med 03/23/21 21:00 Ordered 1 drop EYEBOTH BEDTIME Levothyroxine Med 03/24/21 09:00 Ordered 75 mcg PO DAILY Metoprolol Succinate Med 03/24/21 09:00 Ordered 100 mg PO DAILY Nystatin [Nystatin Crm] Med 03/23/21 21:00 Ordered See Dose Instructions TOP QID Ondansetron Med 03/23/21 18:32 Ordered 4 mg PO Q6H PRN Pantoprazole [ProTONIX IV] Med 03/23/21 21:00 Ordered 40 mg IV Q12HR Prochlorperazine [Compazine] Med 03/23/21 18:32 Ordered 10 mg PO QID PRN Psyllium Husk [Metamucil] Med 03/23/21 21:00 Ordered 1 tsp PO BID Sodium Chloride 0.9% [Saline Flush] Med 03/23/21 15:30 Active 10 ml FLUSH ASDIRECTED PRN dexAMETHasone Med 03/23/21 18:32 Ordered 8 mg PO DAILY PRN lisinopriL [Prinivil] Med 03/24/21 09:00 Ordered 40 mg PO DAILY Blood Culture x2 Reflex Set [OM.PC] Stat Oth 03/23/21 15:31 Ordered Saline Lock Insert [OM.PC] Stat Oth 03/23/21 15:31 Ordered VTE Mechanical Contraindications [AST] Per Unit Routine Oth 03/23/21 18:34 Ordered VTE Pharmacological Contraindications [AST] Per Unit Oth 03/23/21 18:34 Ordered Routine Resuscitation Status Routine Resus Stat 03/23/21 18:34 Ordered EKG 12 Lead [EK] Stat Ther 03/23/21 15:31 Ordered Medication Orders Acetaminophen (Acetaminophen 325 Mg Tab) 650 mg PO Q4H PRN PRN Reason: Pain (Mild 1-3)/fever Cholecalciferol (Cholecalciferol (Vitamin D3) 25 Mcg Tab) 50 mcg PO DAILY LUCIO Dexamethasone (Dexamethasone 4 Mg Tab) 8 mg PO DAILY PRN PRN Reason: chemo Folic Acid (Folic Acid 1 Mg Tab) 1 mg PO DAILY LUCIO Furosemide (Furosemide 40 Mg/4 Ml Vial) 40 mg IVPUSH DAILY [facility] Insulin Glargine (Insulin Glarg,Human.Rec.Analog 100 Unit/Ml) 13 unit SUBCUT DAILY LUCIO Insulin Human Regular (Insulin Regular, Human 100 Units/Ml 3 Ml Vial) 0 unit SUBCUT TIDPC ONE; Protocol Stop: 03/23/21 18:35 Latanoprost (Latanoprost 0.005% Ophth Soln 2.5 Ml Bottle) 0 ml EYEBOTH BEDTIME LUCIO Levothyroxine Sodium (Levothyroxine 75 Mcg Tab) 75 mcg PO ACBRK LUCIO Lisinopril (Lisinopril 20 Mg Tab) 40 mg PO DAILY LUCIO Metoprolol Succinate (Metoprolol Succinate 50 Mg Tab.Er) 100 mg PO DAILY [facility] Non-Formulary Medication (Psyllium Husk [Metamucil]) 1 tsp PO BID LUCIO Nystatin (Nystatin Crm 30 Gm Tube) 0 gm TOP QID LUCIO Ondansetron HCl (Ondansetron 4 Mg Tab.Dis) 4 mg PO Q6H PRN PRN Reason: Nausea Pantoprazole Sodium (Pantoprazole 40 Mg Vial) 40 mg IV Q12HR LUCIO Prochlorperazine Maleate (Prochlorperazine 5 Mg Tab) 10 mg PO QID PRN PRN Reason: Nausea Sodium Chloride (Sodium Chloride 0.9% 10 Ml Syringe) 10 ml FLUSH ASDIRECTED PRN PRN Reason: Keep Vein Open Last Admin: 03/23/21 15:39 Dose: 10 ml Documented by: ELIZABETH Assessment/Plan Comment:: The patient is an 85-year-old lady who has a number of different chronic medical problems to include congestive heart failure. The patient was admitted secondary to exacerbation of her CHF. The patient has B-type natriuretic peptide is markedly elevated at 9361. The patient will be gently diuresed and her renal function will be monitored closely. Repeat laboratory studies have been ordered for the morning. The patient will also have diabetic diet along with Accu-Cheks AC. She also have bedside glucose monitoring. PT and OT have also been ordered for the patient due to her weakness. The patient is also on steroids for her brain metastases which can also interfere with her blood sugars. She will be kept on insulin to help manage this. The patient is also anemic and she will be monitored and if her hemoglobin drops below 7.0 g/dL will consider transfusion. The patient also has severe pain in her left foot this seems to be associated with a fungal rash. I have placed the patient on nystatin cream as well as lidocaine to help numb the skin area. I think that the patient's pain is not related to the fungal rash that is likely neuropathy secondary to either the diabetes, steroids, chemotherapy or brain metastases. The patient's pain control will be continued with her home usage of tramadol. The patient has an allergy to hydrocodone as well as codeine and this limits her narcotic pain usage. I had a long discussion with the patient's family regarding CODE STATUS and she is currently in a full CODE STATUS. Family is considering hospice care. They have said that the patient herself is not at the point where hospice care can be considered. The patient should be appropriate for discharge likely to shelter facility in 1 to 2 days. - Mortality Measure Prognosis:: Poor
[2021-03-23] MEDS: traMADol 50 MG Tab PO SCH (20:56)
[2021-03-23] MEDS: Nystatin Crm 30 GM Tube TOP SCH (21:06)
[2021-03-23] MEDS: Pantoprazole 40 MG Vial IV SCH (21:07)
[2021-03-23] MEDS: Latanoprost 0.005% Ophth Soln 2.5 ML Bottle EYEBOTH SCH (21:09)
[2021-03-24] MEDS: traMADol 50 MG Tab PO SCH ×4 (03:58→21:19)
[2021-03-24] MEDS: Levothyroxine 75 MCG Tab PO SCH (06:05)
--- NOTE | 2021-03-24 07:53 | PCM.PN ---
- General Info Date of Service: 03/24/21 Admission Dx/Problem (Free Text): Admission Diagnosis/Problem Admission Diagnosis/Problem Congestive heart failure Subjective Update: The patient is an 85-year-old lady who had been admitted yesterday secondary to congestive heart failure, pain in left foot, lung cancer metastatic to the brain. Her overriding concern with pain in her foot. The patient's pain has been poorly controlled with any medications or creams and lidocaine. Today the patient says that she is breathing better. She has been wanting to try to eat. The patient has been unable to ambulate due to the pain in her foot. The patient has recently finished chemotherapy and radiation treatment for her cancer. Functional Status: Denies: Pain Controlled, Tolerating Diet - Review of Systems General: Reports: Weakness, Fatigue HEENT: Reports: No Symptoms Pulmonary: Reports: No Symptoms Cardiovascular: Reports: No Symptoms Gastrointestinal: Reports: Nausea Genitourinary: Reports: No Symptoms Musculoskeletal: Reports: Foot Pain Skin: Reports: Rash Neurological: Reports: No Symptoms Psychiatric: Reports: No Symptoms - Patient Data Vitals - Most Recent: Last Vital Signs Temp 37.4 C 03/24/21 04:10 Pulse 75 03/24/21 04:15 Resp 17 03/24/21 04:10 BP 130/34 L 03/24/21 04:10 Pulse Ox 90 L 03/24/21 04:15 Weight - Most Recent: 81.783 kg I&O - Last 24 Hours: Intake & Output 03/23/21 03/24/21 03/24/21 22:59 06:59 14:59 Intake Total 300 Output Total 2400 Balance -2100 Lab Results Last 24 Hours: Laboratory Results - last 24 hr 03/23/21 03/23/21 03/23/21 Range/Units 15:53 15:53 15:53 WBC 6.93 (3.98-10.04) K/mm3 RBC 2.16 L (3.98-5.22) M/mm3 Hgb 7.5 L D (11.2-15.7) gm/dl Hct 23.5 L (34.1-44.9) % MCV 108.8 H D (79.4-94.8) fl MCH 34.7 H (25.6-32.2) pg MCHC 31.9 L (32.2-35.5) g/dl RDW Std Deviation 72.7 H (36.4-46.3) fL Plt Count 166 L D (182-369) K/mm3 MPV 10.3 (9.4-12.3) fl Neut % (Auto) (34.0-71.1) % Lymph % (Auto) (19.3-51.7) % Noble % (Auto) (4.7-12.5) % Eos % (Auto) (0.7-5.8) Baso % (Auto) (0.1-1.2) % Neut # (Auto) (1.56-6.13) K/mm3 Lymph # (Auto) (1.18-3.74) K/mm3 Noble # (Auto) (0.24-0.36) K/mm3 Eos # (Auto) (0.04-0.36) K/mm3 Baso # (Auto) (0.01-0.08) K/mm3 Neutrophils % (Manual) 80 H (40-60) % Band Neutrophils % 0 (0-10) % Lymphocytes % (Manual) 14 L (20-40) % Atypical Lymphs % 0 % Monocytes % (Manual) 6 (2-10) % Eosinophils % (Manual) 0 L (0.7-5.8) % Basophils % (Manual) 0 L (0.1-1.2) Platelet Estimate Adequate Macrocytosis 2+ moderate Target Cells 1+ slight PT 10.6 (9.7-12.0) SECONDS INR 0.99 APTT 25.9 (21.7-31.4) SECONDS Sodium 140 (136-145) mEq/L Potassium 4.2 (3.5-5.1) mEq/L Chloride 103 (98-107) mEq/L Carbon Dioxide 27 (21-32) mEq/L Anion Gap 14.2 (5-15) BUN 17 (7-18) mg/dL Creatinine 1.6 H (0.55-1.02) mg/dL Est Cr Clr Drug Dosing 22.60 mL/min Estimated GFR (MDRD) 31 (>60) mL/min BUN/Creatinine Ratio 10.6 L (14-18) Glucose 145 H (70-99) mg/dL POC Glucose (70-99) mg/dL Lactic Acid (0.4-2.0) mmol/L Calcium 8.6 (8.5-10.1) mg/dL Magnesium (1.8-2.4) mg/dL Total Bilirubin 0.8 (0.2-1.0) mg/dL AST 23 (15-37) U/L ALT 35 (14-59) U/L Alkaline Phosphatase 60 (46-116) U/L Troponin I 0.039 (0.00-0.056) ng/mL C-Reactive Protein 6.6 H* (<1.0) mg/dL NT-Pro-B Natriuret Pep (0-450) pg/mL Total Protein 6.4 (6.4-8.2) g/dl Albumin 2.9 L (3.4-5.0) g/dl Globulin 3.5 gm/dL Albumin/Globulin Ratio 0.8 L (1-2) Urine Color (Yellow) Urine Appearance (Clear) Urine pH (5.0-8.0) Ur Specific [place] (1.005-1.030) Urine Protein (Negative) Urine Glucose (UA) (Negative) Urine Ketones (Negative) Urine Occult Blood (Negative) Urine Nitrite (Negative) Urine Bilirubin (Negative) Urine Urobilinogen (0.2-1.0) Ur Leukocyte Esterase (Negative) Urine RBC (0-5) /hpf Urine WBC (0-5) /hpf Ur Epithelial Cells (0-5) /hpf Urine Bacteria (FEW) /hpf Urine Mucus (FEW) /hpf SARS-CoV-2 RNA (CATIE) (NEGATIVE) MRSA (PCR) Blood Type Gel Antibody Screen 03/23/21 03/23/21 03/23/21 Range/Units 15:53 15:53 17:40 WBC (3.98-10.04) K/mm3 RBC (3.98-5.22) M/mm3 Hgb (11.2-15.7) gm/dl Hct (34.1-44.9) % MCV (79.4-94.8) fl MCH (25.6-32.2) pg MCHC (32.2-35.5) g/dl RDW Std Deviation (36.4-46.3) fL Plt Count (182-369) K/mm3 MPV (9.4-12.3) fl Neut % (Auto) (34.0-71.1) % Lymph % (Auto) (19.3-51.7) % Noble % (Auto) (4.7-12.5) % Eos % (Auto) (0.7-5.8) Baso % (Auto) (0.1-1.2) % Neut # (Auto) (1.56-6.13) K/mm3 Lymph # (Auto) (1.18-3.74) K/mm3 [place] # (Auto) (0.24-0.36) K/mm3 Eos # (Auto) (0.04-0.36) K/mm3 Baso # (Auto) (0.01-0.08) K/mm3 Neutrophils % (Manual) (40-60) % Band Neutrophils % (0-10) % Lymphocytes % (Manual) (20-40) % Atypical Lymphs % % Monocytes % (Manual) (2-10) % Eosinophils % (Manual) (0.7-5.8) % Basophils % (Manual) (0.1-1.2) Platelet Estimate Macrocytosis Target Cells PT (9.7-12.0) SECONDS INR APTT (21.7-31.4) SECONDS Sodium (136-145) mEq/L Potassium (3.5-5.1) mEq/L Chloride (98-107) mEq/L Carbon Dioxide (21-32) mEq/L Anion Gap (5-15) BUN (7-18) mg/dL Creatinine (0.55-1.02) mg/dL Est Cr Clr Drug Dosing mL/min Estimated GFR (MDRD) (>60) mL/min BUN/Creatinine Ratio (14-18) Glucose (70-99) mg/dL POC Glucose (70-99) mg/dL Lactic Acid 0.9 (0.4-2.0) mmol/L Calcium (8.5-10.1) mg/dL Magnesium (1.8-2.4) mg/dL Total Bilirubin (0.2-1.0) mg/dL AST (15-37) U/L ALT (14-59) U/L Alkaline Phosphatase (46-116) U/L Troponin I (0.00-0.056) ng/mL C-Reactive Protein (<1.0) mg/dL NT-Pro-B Natriuret Pep 9361 H (0-450) pg/mL Total Protein (6.4-8.2) g/dl Albumin (3.4-5.0) g/dl Globulin gm/dL Albumin/Globulin Ratio (1-2) Urine Color (Yellow) Urine Appearance (Clear) Urine pH (5.0-8.0) Ur Specific [place] (1.005-1.030) Urine Protein (Negative) Urine Glucose (UA) (Negative) Urine Ketones (Negative) Urine Occult Blood (Negative) Urine Nitrite (Negative) Urine Bilirubin (Negative) Urine Urobilinogen (0.2-1.0) Ur Leukocyte Esterase (Negative) Urine RBC (0-5) /hpf Urine WBC (0-5) /hpf Ur Epithelial Cells (0-5) /hpf Urine Bacteria (FEW) /hpf Urine Mucus (FEW) /hpf SARS-CoV-2 RNA (CATIE) (NEGATIVE) MRSA (PCR) Blood Type A POSITIVE Gel Antibody Screen Negative 03/23/21 03/23/21 03/23/21 Range/Units 17:56 18:25 20:49 WBC (3.98-10.04) K/mm3 RBC (3.98-5.22) M/mm3 Hgb (11.2-15.7) gm/dl Hct (34.1-44.9) % MCV (79.4-94.8) fl MCH (25.6-32.2) pg MCHC (32.2-35.5) g/dl RDW Std Deviation (36.4-46.3) fL Plt Count (182-369) K/mm3 MPV (9.4-12.3) fl Neut % (Auto) (34.0-71.1) % Lymph % (Auto) (19.3-51.7) % Noble % (Auto) (4.7-12.5) % Eos % (Auto) (0.7-5.8) Baso % (Auto) (0.1-1.2) % Neut # (Auto) (1.56-6.13) K/mm3 Lymph # (Auto) (1.18-3.74) K/mm3 Noble # (Auto) (0.24-0.36) K/mm3 Eos # (Auto) (0.04-0.36) K/mm3 Baso # (Auto) (0.01-0.08) K/mm3 Neutrophils % (Manual) (40-60) % Band Neutrophils % (0-10) % Lymphocytes % (Manual) (20-40) % Atypical Lymphs % % Monocytes % (Manual) (2-10) % Eosinophils % (Manual) (0.7-5.8) % Basophils % (Manual) (0.1-1.2) Platelet Estimate Macrocytosis Target Cells PT (9.7-12.0) SECONDS INR APTT (21.7-31.4) SECONDS Sodium (136-145) mEq/L Potassium (3.5-5.1) mEq/L Chloride (98-107) mEq/L Carbon Dioxide (21-32) mEq/L Anion Gap (5-15) BUN (7-18) mg/dL Creatinine (0.55-1.02) mg/dL Est Cr Clr Drug Dosing mL/min Estimated GFR (MDRD) (>60) mL/min BUN/Creatinine Ratio (14-18) Glucose (70-99) mg/dL POC Glucose 119 H (70-99) mg/dL Lactic Acid (0.4-2.0) mmol/L Calcium (8.5-10.1) mg/dL Magnesium (1.8-2.4) mg/dL Total Bilirubin (0.2-1.0) mg/dL AST (15-37) U/L ALT (14-59) U/L Alkaline Phosphatase (46-116) U/L Troponin I (0.00-0.056) ng/mL C-Reactive Protein (<1.0) mg/dL NT-Pro-B Natriuret Pep (0-450) pg/mL Total Protein (6.4-8.2) g/dl Albumin (3.4-5.0) g/dl Globulin gm/dL Albumin/Globulin Ratio (1-2) Urine Color Light yellow (Yellow) Urine Appearance Clear (Clear) Urine pH 7.5 (5.0-8.0) Ur Specific [place] 1.020 (1.005-1.030) Urine Protein Trace H (Negative) Urine Glucose (UA) Negative (Negative) Urine Ketones Negative (Negative) Urine Occult Blood Negative (Negative) Urine Nitrite Positive H (Negative) Urine Bilirubin Negative (Negative) Urine Urobilinogen 0.2 (0.2-1.0) Ur Leukocyte Esterase Negative (Negative) Urine RBC 0-5 (0-5) /hpf Urine WBC 0-5 (0-5) /hpf Ur Epithelial Cells 5-10 H (0-5) /hpf Urine Bacteria Few (FEW) /hpf Urine Mucus Few (FEW) /hpf SARS-CoV-2 RNA (CATIE) Negative (NEGATIVE) MRSA (PCR) Blood Type Gel Antibody Screen 03/23/21 03/24/21 03/24/21 Range/Units 22:38 05:43 05:43 WBC 8.43 (3.98-10.04) K/mm3 RBC 2.18 L (3.98-5.22) M/mm3 Hgb 7.7 L (11.2-15.7) gm/dl Hct 23.7 L (34.1-44.9) % MCV 108.7 H (79.4-94.8) fl MCH 35.3 H (25.6-32.2) pg MCHC 32.5 (32.2-35.5) g/dl RDW Std Deviation 73.4 H (36.4-46.3) fL Plt Count 181 L (182-369) K/mm3 MPV 10.4 (9.4-12.3) fl Neut % (Auto) 72.1 H (34.0-71.1) % Lymph % (Auto) 8.2 L (19.3-51.7) % Noble % (Auto) 19.6 H (4.7-12.5) % Eos % (Auto) 0 L (0.7-5.8) Baso % (Auto) 0.1 (0.1-1.2) % Neut # (Auto) 6.08 (1.56-6.13) K/mm3 Lymph # (Auto) 0.69 L (1.18-3.74) K/mm3 Noble # (Auto) 1.65 H (0.24-0.36) K/mm3 Eos # (Auto) 0.00 L (0.04-0.36) K/mm3 Baso # (Auto) 0.01 (0.01-0.08) K/mm3 Neutrophils % (Manual) (40-60) % Band Neutrophils % (0-10) % Lymphocytes % (Manual) (20-40) % Atypical Lymphs % % Monocytes % (Manual) (2-10) % Eosinophils % (Manual) (0.7-5.8) % Basophils % (Manual) (0.1-1.2) Platelet Estimate Macrocytosis Target Cells PT (9.7-12.0) SECONDS INR APTT (21.7-31.4) SECONDS Sodium 141 (136-145) mEq/L Potassium 3.7 (3.5-5.1) mEq/L Chloride 102 (98-107) mEq/L Carbon Dioxide 30 (21-32) mEq/L Anion Gap 12.7 (5-15) BUN 15 (7-18) mg/dL Creatinine 1.5 H (0.55-1.02) mg/dL Est Cr Clr Drug Dosing 24.11 mL/min Estimated GFR (MDRD) 33 (>60) mL/min BUN/Creatinine Ratio 10.0 L (14-18) Glucose 113 H (70-99) mg/dL POC Glucose (70-99) mg/dL Lactic Acid (0.4-2.0) mmol/L Calcium 8.5 (8.5-10.1) mg/dL Magnesium 1.4 L (1.8-2.4) mg/dL Total Bilirubin 0.8 (0.2-1.0) mg/dL AST 21 (15-37) U/L ALT 31 (14-59) U/L Alkaline Phosphatase 52 (46-116) U/L Troponin I (0.00-0.056) ng/mL C-Reactive Protein (<1.0) mg/dL NT-Pro-B Natriuret Pep (0-450) pg/mL Total Protein 6.0 L (6.4-8.2) g/dl Albumin 2.6 L (3.4-5.0) g/dl Globulin 3.4 gm/dL Albumin/Globulin Ratio 0.8 L (1-2) Urine Color (Yellow) Urine Appearance (Clear) Urine pH (5.0-8.0) Ur Specific [place] (1.005-1.030) Urine Protein (Negative) Urine Glucose (UA) (Negative) Urine Ketones (Negative) Urine Occult Blood (Negative) Urine Nitrite (Negative) Urine Bilirubin (Negative) Urine Urobilinogen (0.2-1.0) Ur Leukocyte Esterase (Negative) Urine RBC (0-5) /hpf Urine WBC (0-5) /hpf Ur Epithelial Cells (0-5) /hpf Urine Bacteria (FEW) /hpf Urine Mucus (FEW) /hpf SARS-CoV-2 RNA (CATIE) (NEGATIVE) MRSA (PCR) Negative Blood Type Gel Antibody Screen 03/24/21 Range/Units 06:10 WBC (3.98-10.04) K/mm3 RBC (3.98-5.22) M/mm3 Hgb (11.2-15.7) gm/dl Hct (34.1-44.9) % MCV (79.4-94.8) fl MCH (25.6-32.2) pg MCHC (32.2-35.5) g/dl RDW Std Deviation (36.4-46.3) fL Plt Count (182-369) K/mm3 MPV (9.4-12.3) fl Neut % (Auto) (34.0-71.1) % Lymph % (Auto) (19.3-51.7) % Noble % (Auto) (4.7-12.5) % Eos % (Auto) (0.7-5.8) Baso % (Auto) (0.1-1.2) % Neut # (Auto) (1.56-6.13) K/mm3 Lymph # (Auto) (1.18-3.74) K/mm3 Noble # (Auto) (0.24-0.36) K/mm3 Eos # (Auto) (0.04-0.36) K/mm3 Baso # (Auto) (0.01-0.08) K/mm3 Neutrophils % (Manual) (40-60) % Band Neutrophils % (0-10) % Lymphocytes % (Manual) (20-40) % Atypical Lymphs % % Monocytes % (Manual) (2-10) % Eosinophils % (Manual) (0.7-5.8) % Basophils % (Manual) (0.1-1.2) Platelet Estimate Macrocytosis Target Cells PT (9.7-12.0) SECONDS INR APTT (21.7-31.4) SECONDS Sodium (136-145) mEq/L Potassium (3.5-5.1) mEq/L Chloride (98-107) mEq/L Carbon Dioxide (21-32) mEq/L Anion Gap (5-15) BUN (7-18) mg/dL Creatinine (0.55-1.02) mg/dL Est Cr Clr Drug Dosing mL/min Estimated GFR (MDRD) (>60) mL/min BUN/Creatinine Ratio (14-18) Glucose (70-99) mg/dL POC Glucose 105 H (70-99) mg/dL Lactic Acid (0.4-2.0) mmol/L Calcium (8.5-10.1) mg/dL Magnesium (1.8-2.4) mg/dL Total Bilirubin (0.2-1.0) mg/dL AST (15-37) U/L ALT (14-59) U/L Alkaline Phosphatase (46-116) U/L Troponin I (0.00-0.056) ng/mL C-Reactive Protein (<1.0) mg/dL NT-Pro-B Natriuret Pep (0-450) pg/mL Total Protein (6.4-8.2) g/dl Albumin (3.4-5.0) g/dl Globulin gm/dL Albumin/Globulin Ratio (1-2) Urine Color (Yellow) Urine Appearance (Clear) Urine pH (5.0-8.0) Ur Specific [place] (1.005-1.030) Urine Protein (Negative) Urine Glucose (UA) (Negative) Urine Ketones (Negative) Urine Occult Blood (Negative) Urine Nitrite (Negative) Urine Bilirubin (Negative) Urine Urobilinogen (0.2-1.0) Ur Leukocyte Esterase (Negative) Urine RBC (0-5) /hpf Urine WBC (0-5) /hpf Ur Epithelial Cells (0-5) /hpf Urine Bacteria (FEW) /hpf Urine Mucus (FEW) /hpf SARS-CoV-2 RNA (CATIE) (NEGATIVE) MRSA (PCR) Blood Type Gel Antibody Screen Med Orders - Current: Current Medications Acetaminophen (Acetaminophen 325 Mg Tab) 650 mg PO Q4H PRN PRN Reason: Pain (Mild 1-3)/fever Cholecalciferol (Cholecalciferol (Vitamin D3) 25 Mcg Tab) 50 mcg PO DAILY LUCIO Dexamethasone (Dexamethasone 4 Mg Tab) 8 mg PO DAILY PRN PRN Reason: chemo Folic Acid (Folic Acid 1 Mg Tab) 1 mg PO DAILY LUCIO Furosemide (Furosemide 40 Mg/4 Ml Vial) 40 mg IVPUSH DAILY [facility] Insulin Glargine (Insulin Glarg,Human.Rec.Analog 100 Unit/Ml) 13 unit SUBCUT DA KEL [facility] Insulin Human Regular (Insulin Regular, Human 100 Units/Ml 3 Ml Vial) 0 unit SUBCUT TIDPC [facility]; Protocol Latanoprost (Latanoprost 0.005% Ophth Soln 2.5 Ml Bottle) 0 ml EYEBOTH BEDTIME [facility] Last Admin: 03/23/21 21:09 Dose: 1 drop Documented by: Levothyroxine Sodium (Levothyroxine 75 Mcg Tab) 75 mcg PO ACBRK [facility] Last Admin: 03/24/21 06:05 Dose: 75 mcg Documented by: Lisinopril (Lisinopril 20 Mg Tab) 40 mg PO DAILY [facility] Metoprolol Succinate (Metoprolol Succinate 50 Mg Tab.Er) 100 mg PO DAILY [facility] Nystatin (Nystatin Crm 30 Gm Tube) 0 gm TOP QID [facility] Last Admin: 03/23/21 21:06 Dose: 1 applic Documented by: Ondansetron HCl (Ondansetron 4 Mg Tab.Dis) 4 mg PO Q6H PRN PRN Reason: Nausea Pantoprazole Sodium (Pantoprazole 40 Mg Vial) 40 mg IV Q12HR [facility] Last Admin: 03/23/21 21:07 Dose: 40 mg Documented by: Prochlorperazine Maleate (Prochlorperazine 5 Mg Tab) 10 mg PO QID PRN PRN Reason: Nausea Psyllium Husk (Psyllium Husk Powder Sugar Free 5.85 Gm Packet) 1 pkt PO BID [facility] Sodium Chloride (Sodium Chloride 0.9% 10 Ml Syringe) 10 ml FLUSH ASDIRECTED PRN PRN Reason: Keep Vein Open Last Admin: 03/23/21 15:39 Dose: 10 ml Documented by: Tramadol HCl (Tramadol 50 Mg Tab) 50 mg PO Q6H [facility] Last Admin: 03/24/21 03:58 Dose: 50 mg Documented by: Discontinued Medications Furosemide (Furosemide 40 Mg/4 Ml Vial) 40 mg IVPUSH ONETIME ONE Stop: 03/23/21 17:39 Last Admin: 03/23/21 17:48 Dose: 40 mg Documented by: Insulin Human Regular (Insulin Regular, Human 100 Units/Ml 3 Ml Vial) 0 unit SUBCUT TIDPC ONE; Protocol Stop: 03/23/21 18:35 Last Admin: 03/23/21 21:08 Dose: Not Given Documented by: Lidocaine HCl (Lidocaine 2% Jelly 5 Ml Tube) 5 ml TOP ONETIME ONE Stop: 03/23/21 18:46 Last Admin: 03/23/21 19:01 Dose: 1 cartridge Documented by: Morphine Sulfate (Morphine 2 Mg/Ml Syringe) 1 mg IVPUSH ONETIME ONE Stop: 03/23/21 15:58 Last Admin: 03/23/21 16:16 Dose: 1 mg Documented by: Morphine Sulfate (Morphine 2 Mg/Ml Syringe) 1 mg IVPUSH ONETIME ONE Stop: 03/23/21 19:09 Last Admin: 03/23/21 19:12 Dose: 1 mg Documented by: Non-Formulary Medication (Olanzapine) 10 mg PO ASDIRECTED PRN PRN Reason: Other Ondansetron HCl (Ondansetron 4 Mg/2 Ml Sdv) 4 mg IVPUSH ONETIME ONE Stop: 03/23/21 15:58 Last Admin: 03/23/21 16:19 Dose: 4 mg Documented by: Oxycodone HCl (Oxycodone 5 Mg Tab) 5 mg PO Q4H PRN PRN Reason: Pain (moderate 4-6) Pantoprazole Sodium (Pantoprazole 40 Mg Vial) 40 mg IVPUSH ONETIME ONE Stop: 03/23/21 17:38 Last Admin: 03/23/21 17:50 Dose: 40 mg Documented by: - Exam Quality Assessment: Supplemental Oxygen, DVT Prophylaxis Urinary Catheter Total Time: 0Days 0Hours General: Alert, Oriented, Cooperative, Mild Distress HEENT: Pupils Equal, Pupils Reactive, EOMI. No: Mucous Membr. Moist/[place] (Dry) Neck: Supple, Trachea Midline Lungs: Clear to Auscultation, Normal Respiratory Effort Cardiovascular: Regular Rate, Irregular Rhythm GI/Abdominal Exam: Normal Bowel Sounds, Soft, No Distention (Female) Exam: Deferred Back Exam: Normal Inspection, Full Range of Motion Extremities: Normal Inspection, Normal Range of Motion, No Pedal Edema Skin: Warm, Dry, Intact Neurological: No New Focal Deficit Psy/Mental Status: Alert, Normal Affect - Patient Data Lab Results Last 24 hrs: Laboratory Results - last 24 hr 03/23/21 03/23/21 03/23/21 Range/Units 15:53 15:53 15:53 WBC 6.93 (3.98-10.04) K/mm3 RBC 2.16 L (3.98-5.22) M/mm3 Hgb 7.5 L D (11.2-15.7) gm/dl Hct 23.5 L (34.1-44.9) % MCV 108.8 H D (79.4-94.8) fl MCH 34.7 H (25.6-32.2) pg MCHC 31.9 L (32.2-35.5) g/dl RDW Std Deviation 72.7 H (36.4-46.3) fL Plt Count 166 L D (182-369) K/mm3 MPV 10.3 (9.4-12.3) fl Neut % (Auto) (34.0-71.1) % Lymph % (Auto) (19.3-51.7) % Noble % (Auto) (4.7-12.5) % Eos % (Auto) (0.7-5.8) Baso % (Auto) (0.1-1.2) % Neut # (Auto) (1.56-6.13) K/mm3 Lymph # (Auto) (1.18-3.74) K/mm3 [place] # (Auto) (0.24-0.36) K/mm3 Eos # (Auto) (0.04-0.36) K/mm3 Baso # (Auto) (0.01-0.08) K/mm3 Neutrophils % (Manual) 80 H (40-60) % Band Neutrophils % 0 (0-10) % Lymphocytes % (Manual) 14 L (20-40) % Atypical Lymphs % 0 % Monocytes % (Manual) 6 (2-10) % Eosinophils % (Manual) 0 L (0.7-5.8) % Basophils % (Manual) 0 L (0.1-1.2) Platelet Estimate Adequate Macrocytosis 2+ moderate Target Cells 1+ slight PT 10.6 (9.7-12.0) SECONDS INR 0.99 APTT 25.9 (21.7-31.4) SECONDS Sodium 140 (136-145) mEq/L Potassium 4.2 (3.5-5.1) mEq/L Chloride 103 (98-107) mEq/L Carbon Dioxide 27 (21-32) mEq/L Anion Gap 14.2 (5-15) BUN 17 (7-18) mg/dL Creatinine 1.6 H (0.55-1.02) mg/dL Est Cr Clr Drug Dosing 22.60 mL/min Estimated GFR (MDRD) 31 (>60) mL/min BUN/Creatinine Ratio 10.6 L (14-18) Glucose 145 H (70-99) mg/dL POC Glucose (70-99) mg/dL Lactic Acid (0.4-2.0) mmol/L Calcium 8.6 (8.5-10.1) mg/dL Magnesium (1.8-2.4) mg/dL Total Bilirubin 0.8 (0.2-1.0) mg/dL AST 23 (15-37) U/L ALT 35 (14-59) U/L Alkaline Phosphatase 60 (46-116) U/L Troponin I 0.039 (0.00-0.056) ng/mL C-Reactive Protein 6.6 H* (<1.0) mg/dL NT-Pro-B Natriuret Pep (0-450) pg/mL Total Protein 6.4 (6.4-8.2) g/dl Albumin 2.9 L (3.4-5.0) g/dl Globulin 3.5 gm/dL Albumin/Globulin Ratio 0.8 L (1-2) Urine Color (Yellow) Urine Appearance (Clear) Urine pH (5.0-8.0) Ur Specific [place] (1.005-1.030) Urine Protein (Negative) Urine Glucose (UA) (Negative) Urine Ketones (Negative) Urine Occult Blood (Negative) Urine Nitrite (Negative) Urine Bilirubin (Negative) Urine Urobilinogen (0.2-1.0) Ur Leukocyte Esterase (Negative) Urine RBC (0-5) /hpf Urine WBC (0-5) /hpf Ur Epithelial Cells (0-5) /hpf Urine Bacteria (FEW) /hpf Urine Mucus (FEW) /hpf SARS-CoV-2 RNA (CATIE) (NEGATIVE) MRSA (PCR) Blood Type Gel Antibody Screen 03/23/21 03/23/21 03/23/21 Range/Units 15:53 15:53 17:40 WBC (3.98-10.04) K/mm3 RBC (3.98-5.22) M/mm3 Hgb (11.2-15.7) gm/dl Hct (34.1-44.9) % MCV (79.4-94.8) fl MCH (25.6-32.2) pg MCHC (32.2-35.5) g/dl RDW Std Deviation (36.4-46.3) fL Plt Count (182-369) K/mm3 MPV (9.4-12.3) fl Neut % (Auto) (34.0-71.1) % Lymph % (Auto) (19.3-51.7) % Noble % (Auto) (4.7-12.5) % Eos % (Auto) (0.7-5.8) Baso % (Auto) (0.1-1.2) % Neut # (Auto) (1.56-6.13) K/mm3 Lymph # (Auto) (1.18-3.74) K/mm3 Noble # (Auto) (0.24-0.36) K/mm3 Eos # (Auto) (0.04-0.36) K/mm3 Baso # (Auto) (0.01-0.08) K/mm3 Neutrophils % (Manual) (40-60) % Band Neutrophils % (0-10) % Lymphocytes % (Manual) (20-40) % Atypical Lymphs % % Monocytes % (Manual) (2-10) % Eosinophils % (Manual) (0.7-5.8) % Basophils % (Manual) (0.1-1.2) Platelet Estimate Macrocytosis Target Cells PT (9.7-12.0) SECONDS INR APTT (21.7-31.4) SECONDS Sodium (136-145) mEq/L Potassium (3.5-5.1) mEq/L Chloride (98-107) mEq/L Carbon Dioxide (21-32) mEq/L Anion Gap (5-15) BUN (7-18) mg/dL Creatinine (0.55-1.02) mg/dL Est Cr Clr Drug Dosing mL/min Estimated GFR (MDRD) (>60) mL/min BUN/Creatinine Ratio (14-18) Glucose (70-99) mg/dL POC Glucose (70-99) mg/dL Lactic Acid 0.9 (0.4-2.0) mmol/L Calcium (8.5-10.1) mg/dL Magnesium (1.8-2.4) mg/dL Total Bilirubin (0.2-1.0) mg/dL AST (15-37) U/L ALT (14-59) U/L Alkaline Phosphatase (46-116) U/L Troponin I (0.00-0.056) ng/mL C-Reactive Protein (<1.0) mg/dL NT-Pro-B Natriuret Pep 9361 H (0-450) pg/mL Total Protein (6.4-8.2) g/dl Albumin (3.4-5.0) g/dl Globulin gm/dL Albumin/Globulin Ratio (1-2) Urine Color (Yellow) Urine Appearance (Clear) Urine pH (5.0-8.0) Ur Specific [place] (1.005-1.030) Urine Protein (Negative) Urine Glucose (UA) (Negative) Urine Ketones (Negative) Urine Occult Blood (Negative) Urine Nitrite (Negative) Urine Bilirubin (Negative) Urine Urobilinogen (0.2-1.0) Ur Leukocyte Esterase (Negative) Urine RBC (0-5) /hpf Urine WBC (0-5) /hpf Ur Epithelial Cells (0-5) /hpf Urine Bacteria (FEW) /hpf Urine Mucus (FEW) /hpf SARS-CoV-2 RNA (CATIE) (NEGATIVE) MRSA (PCR) Blood Type A POSITIVE Gel Antibody Screen Negative 03/23/21 03/23/21 03/23/21 Range/Units 17:56 18:25 20:49 WBC (3.98-10.04) K/mm3 RBC (3.98-5.22) M/mm3 Hgb (11.2-15.7) gm/dl Hct (34.1-44.9) % MCV (79.4-94.8) fl MCH (25.6-32.2) pg MCHC (32.2-35.5) g/dl RDW Std Deviation (36.4-46.3) fL Plt Count (182-369) K/mm3 MPV (9.4-12.3) fl Neut % (Auto) (34.0-71.1) % Lymph % (Auto) (19.3-51.7) % Noble % (Auto) (4.7-12.5) % Eos % (Auto) (0.7-5.8) Baso % (Auto) (0.1-1.2) % Neut # (Auto) (1.56-6.13) K/mm3 Lymph # (Auto) (1.18-3.74) K/mm3 Noble # (Auto) (0.24-0.36) K/mm3 Eos # (Auto) (0.04-0.36) K/mm3 Baso # (Auto) (0.01-0.08) K/mm3 Neutrophils % (Manual) (40-60) % Band Neutrophils % (0-10) % Lymphocytes % (Manual) (20-40) % Atypical Lymphs % % Monocytes % (Manual) (2-10) % Eosinophils % (Manual) (0.7-5.8) % Basophils % (Manual) (0.1-1.2) Platelet Estimate Macrocytosis Target Cells PT (9.7-12.0) SECONDS INR APTT (21.7-31.4) SECONDS Sodium (136-145) mEq/L Potassium (3.5-5.1) mEq/L Chloride (98-107) mEq/L Carbon Dioxide (21-32) mEq/L Anion Gap (5-15) BUN (7-18) mg/dL Creatinine (0.55-1.02) mg/dL Est Cr Clr Drug Dosing mL/min Estimated GFR (MDRD) (>60) mL/min BUN/Creatinine Ratio (14-18) Glucose (70-99) mg/dL POC Glucose 119 H (70-99) mg/dL Lactic Acid (0.4-2.0) mmol/L Calcium (8.5-10.1) mg/dL Magnesium (1.8-2.4) mg/dL Total Bilirubin (0.2-1.0) mg/dL AST (15-37) U/L ALT (14-59) U/L Alkaline Phosphatase (46-116) U/L Troponin I (0.00-0.056) ng/mL C-Reactive Protein (<1.0) mg/dL NT-Pro-B Natriuret Pep (0-450) pg/mL Total Protein (6.4-8.2) g/dl Albumin (3.4-5.0) g/dl Globulin gm/dL Albumin/Globulin Ratio (1-2) Urine Color Light yellow (Yellow) Urine Appearance Clear (Clear) Urine pH 7.5 (5.0-8.0) Ur Specific [place] 1.020 (1.005-1.030) Urine Protein Trace H (Negative) Urine Glucose (UA) Negative (Negative) Urine Ketones Negative (Negative) Urine Occult Blood Negative (Negative) Urine Nitrite Positive H (Negative) Urine Bilirubin Negative (Negative) Urine Urobilinogen 0.2 (0.2-1.0) Ur Leukocyte Esterase Negative (Negative) Urine RBC 0-5 (0-5) /hpf Urine WBC 0-5 (0-5) /hpf Ur Epithelial Cells 5-10 H (0-5) /hpf Urine Bacteria Few (FEW) /hpf Urine Mucus Few (FEW) /hpf SARS-CoV-2 RNA (CATIE) Negative (NEGATIVE) MRSA (PCR) Blood Type Gel Antibody Screen 03/23/21 03/24/21 03/24/21 Range/Units 22:38 05:43 05:43 WBC 8.43 (3.98-10.04) K/mm3 RBC 2.18 L (3.98-5.22) M/mm3 Hgb 7.7 L (11.2-15.7) gm/dl Hct 23.7 L (34.1-44.9) % MCV 108.7 H (79.4-94.8) fl MCH 35.3 H (25.6-32.2) pg MCHC 32.5 (32.2-35.5) g/dl RDW Std Deviation 73.4 H (36.4-46.3) fL Plt Count 181 L (182-369) K/mm3 MPV 10.4 (9.4-12.3) fl Neut % (Auto) 72.1 H (34.0-71.1) % Lymph % (Auto) 8.2 L (19.3-51.7) % Noble % (Auto) 19.6 H (4.7-12.5) % Eos % (Auto) 0 L (0.7-5.8) Baso % (Auto) 0.1 (0.1-1.2) % Neut # (Auto) 6.08 (1.56-6.13) K/mm3 Lymph # (Auto) 0.69 L (1.18-3.74) K/mm3 [place] # (Auto) 1.65 H (0.24-0.36) K/mm3 Eos # (Auto) 0.00 L (0.04-0.36) K/mm3 Baso # (Auto) 0.01 (0.01-0.08) K/mm3 Neutrophils % (Manual) (40-60) % Band Neutrophils % (0-10) % Lymphocytes % (Manual) (20-40) % Atypical Lymphs % % Monocytes % (Manual) (2-10) % Eosinophils % (Manual) (0.7-5.8) % Basophils % (Manual) (0.1-1.2) Platelet Estimate Macrocytosis Target Cells PT (9.7-12.0) SECONDS INR APTT (21.7-31.4) SECONDS Sodium 141 (136-145) mEq/L Potassium 3.7 (3.5-5.1) mEq/L Chloride 102 (98-107) mEq/L Carbon Dioxide 30 (21-32) mEq/L Anion Gap 12.7 (5-15) BUN 15 (7-18) mg/dL Creatinine 1.5 H (0.55-1.02) mg/dL Est Cr Clr Drug Dosing 24.11 mL/min Estimated GFR (MDRD) 33 (>60) mL/min BUN/Creatinine Ratio 10.0 L (14-18) Glucose 113 H (70-99) mg/dL POC Glucose (70-99) mg/dL Lactic Acid (0.4-2.0) mmol/L Calcium 8.5 (8.5-10.1) mg/dL Magnesium 1.4 L (1.8-2.4) mg/dL Total Bilirubin 0.8 (0.2-1.0) mg/dL AST 21 (15-37) U/L ALT 31 (14-59) U/L Alkaline Phosphatase 52 (46-116) U/L Troponin I (0.00-0.056) ng/mL C-Reactive Protein (<1.0) mg/dL NT-Pro-B Natriuret Pep (0-450) pg/mL Total Protein 6.0 L (6.4-8.2) g/dl Albumin 2.6 L (3.4-5.0) g/dl Globulin 3.4 gm/dL Albumin/Globulin Ratio 0.8 L (1-2) Urine Color (Yellow) Urine Appearance (Clear) Urine pH (5.0-8.0) Ur Specific [place] (1.005-1.030) Urine Protein (Negative) Urine Glucose (UA) (Negative) Urine Ketones (Negative) Urine Occult Blood (Negative) Urine Nitrite (Negative) Urine Bilirubin (Negative) Urine Urobilinogen (0.2-1.0) Ur Leukocyte Esterase (Negative) Urine RBC (0-5) /hpf Urine WBC (0-5) /hpf Ur Epithelial Cells (0-5) /hpf Urine Bacteria (FEW) /hpf Urine Mucus (FEW) /hpf SARS-CoV-2 RNA (CATIE) (NEGATIVE) MRSA (PCR) Negative Blood Type Gel Antibody Screen 03/24/21 Range/Units 06:10 WBC (3.98-10.04) K/mm3 RBC (3.98-5.22) M/mm3 Hgb (11.2-15.7) gm/dl Hct (34.1-44.9) % MCV (79.4-94.8) fl MCH (25.6-32.2) pg MCHC (32.2-35.5) g/dl RDW Std Deviation (36.4-46.3) fL Plt Count (182-369) K/mm3 MPV (9.4-12.3) fl Neut % (Auto) (34.0-71.1) % Lymph % (Auto) (19.3-51.7) % Noble % (Auto) (4.7-12.5) % Eos % (Auto) (0.7-5.8) Baso % (Auto) (0.1-1.2) % Neut # (Auto) (1.56-6.13) K/mm3 Lymph # (Auto) (1.18-3.74) K/mm3 Noble # (Auto) (0.24-0.36) K/mm3 Eos # (Auto) (0.04-0.36) K/mm3 Baso # (Auto) (0.01-0.08) K/mm3 Neutrophils % (Manual) (40-60) % Band Neutrophils % (0-10) % Lymphocytes % (Manual) (20-40) % Atypical Lymphs % % Monocytes % (Manual) (2-10) % Eosinophils % (Manual) (0.7-5.8) % Basophils % (Manual) (0.1-1.2) Platelet Estimate Macrocytosis Target Cells PT (9.7-12.0) SECONDS INR APTT (21.7-31.4) SECONDS Sodium (136-145) mEq/L Potassium (3.5-5.1) mEq/L Chloride (98-107) mEq/L Carbon Dioxide (21-32) mEq/L Anion Gap (5-15) BUN (7-18) mg/dL Creatinine (0.55-1.02) mg/dL Est Cr Clr Drug Dosing mL/min Estimated GFR (MDRD) (>60) mL/min BUN/Creatinine Ratio (14-18) Glucose (70-99) mg/dL POC Glucose 105 H (70-99) mg/dL Lactic Acid (0.4-2.0) mmol/L Calcium (8.5-10.1) mg/dL Magnesium (1.8-2.4) mg/dL Total Bilirubin (0.2-1.0) mg/dL AST (15-37) U/L ALT (14-59) U/L Alkaline Phosphatase (46-116) U/L Troponin I (0.00-0.056) ng/mL C-Reactive Protein (<1.0) mg/dL NT-Pro-B Natriuret Pep (0-450) pg/mL Total Protein (6.4-8.2) g/dl Albumin (3.4-5.0) g/dl Globulin gm/dL Albumin/Globulin Ratio (1-2) Urine Color (Yellow) Urine Appearance (Clear) Urine pH (5.0-8.0) Ur Specific [place] (1.005-1.030) Urine Protein (Negative) Urine Glucose (UA) (Negative) Urine Ketones (Negative) Urine Occult Blood (Negative) Urine Nitrite (Negative) Urine Bilirubin (Negative) Urine Urobilinogen (0.2-1.0) Ur Leukocyte Esterase (Negative) Urine RBC (0-5) /hpf Urine WBC (0-5) /hpf Ur Epithelial Cells (0-5) /hpf Urine Bacteria (FEW) /hpf Urine Mucus (FEW) /hpf SARS-CoV-2 RNA (CATIE) (NEGATIVE) MRSA (PCR) Blood Type Gel Antibody Screen Result Diagrams: 03/24/21 05:43 03/24/21 05:43 Sepsis Event Note - Evaluation Sepsis Screening Result: No Definite Risk - Focused Exam Vital Signs: Vital Signs Temp Pulse Resp BP Pulse Ox 03/24/21 04:15 75 90 L 03/24/21 04:10 37.4 C 110 H 17 130/34 L 84 L 03/23/21 21:19 36.8 C 54 L 18 159/91 H 90 L - Problem List & Annotations (1) Gout involving toe of left foot SNOMED Code(s): 775682828 Code(s): M10.9 - GOUT, UNSPECIFIED Status: Acute Priority: High Current Visit: Yes Qualifiers: Gout etiology: drug-induced Chronicity: acute Qualified Code(s): M10.272 - Drug-induced gout, left ankle and foot (2) CHF exacerbation SNOMED Code(s): 502333371, 46634719453329 Code(s): I50.9 - HEART FAILURE, UNSPECIFIED Status: Acute Current Visit: Yes Qualifiers: Heart failure type: unspecified Qualified Code(s): I50.9 - Heart failure, unspecified (3) Chronic renal insufficiency, stage III (moderate) SNOMED Code(s): 434916857 Code(s): N18.30 - CHRONIC KIDNEY DISEASE, STAGE 3 UNSPECIFIED Status: Chronic Priority: Medium Current Visit: Yes Qualifiers: Chronic kidney disease stage 3 subtype: stage 3b (GFR 30-44) Qualified Co de(s): N18.32 - Chronic kidney disease, stage 3b (4) Diabetes mellitus SNOMED Code(s): 29406971 Code(s): E11.9 - TYPE 2 DIABETES MELLITUS WITHOUT COMPLICATIONS Status: Chronic Priority: Medium Current Visit: Yes Qualifiers: Diabetes mellitus type: type 2 Diabetes mellitus usp insulin use: without medical terminologist use Diabetes mellitus complication status: with neurologic complications Diabetes mellitus complication detail: with mononeuropathy Qualified Code(s): E11.41 - Type 2 diabetes mellitus with diabetic mononeuropathy (5) History of cardiac pacemaker SNOMED Code(s): 374704878 Code(s): Z95.0 - PRESENCE OF CARDIAC PACEMAKER Status: Chronic Priority: Medium Current Visit: Yes (6) Metastatic adenocarcinoma to brain SNOMED Code(s): 409946643, 004438798 Code(s): C79.31 - SECONDARY MALIGNANT NEOPLASM OF BRAIN Status: Chronic Priority: High Current Visit: Yes (7) Atrial fibrillation SNOMED Code(s): 25437022 Code(s): I48.91 - UNSPECIFIED ATRIAL FIBRILLATION Status: Acute Priority: High Current Visit: Yes Qualifiers: Atrial fibrillation type: unspecified Qualified Code(s): I48.91 - Unspecified atrial fibrillation - Problem List Review Problem List Initiated/Reviewed/Updated: Yes - My Orders Last 24 Hours: My Active Orders 03/23/21 Breakfast Nothing per Oral Now Diet [DIET] 03/23/21 18:31 Urinary Catheter Assessment [RC] 20,04,08,16 03/23/21 18:32 Prochlorperazine [Compazine] 10 mg PO QID PRN dexAMETHasone 8 mg PO DAILY PRN 03/23/21 18:34 Patient Status [ADT] Routine Blood Glucose Check, Bedside [RC] WITHMEALSANDBED Oxygen Therapy [RC] PRN Up With Assistance [RC] ASDIRECTED VTE/DVT Education [RC] PER UNIT ROUTINE Vital Signs [RC] Q4H Consult to Case Management/Behavioral Health Director [CONS] Routine OT Evaluation and Treatment [CONS] Routine PT Evaluation and Treatment [CONS] Routine Acetaminophen [TylenoL] 650 mg PO Q4H PRN VTE Mechanical Contraindications [AST] Per Unit Routine VTE Pharmacological Contraindications [AST] Per Unit Routine Resuscitation Status Routine 03/23/21 18:42 Ondansetron [Zofran ODT] 4 mg PO Q6H PRN 03/23/21 18:45 Insert Montes Catheter [Insert Urinary Catheter] [OM.PC] Q24H 03/23/21 21:00 Latanoprost [Xalatan 0.005% Ophth Soln] 0 ml EYEBOTH BEDTIME Nystatin [Nystatin Crm] See Dose Instructions TOP QID Pantoprazole [ProTONIX IV] 40 mg IV Q12HR traMADol [Ultram] 50 mg PO Q6H 03/24/21 03:13 Isolation [COMM] Routine 03/24/21 05:43 CBC WITH AUTO DIFF [HEME] AM 03/24/21 06:00 Levothyroxine 75 mcg PO ACBRK 03/24/21 09:00 Cholecalciferol (Vitamin D3) [Vitamin D3] 50 mcg PO DAILY Folic Acid 1 mg PO DAILY Furosemide [Lasix] 40 mg IVPUSH DAILY Insulin Glarg,Human.Rec.Analog [LantUS] 13 unit SUBCUT DAILY Insulin Regular, Human [HumuLIN R] See Protocol SUBCUT TIDPC Metoprolol Succinate [Toprol XL] 100 mg PO DAILY Psyllium Husk/Aspartame [Metamucil Sugar Free] 1 pkt PO BID lisinopriL [Prinivil] 40 mg PO DAILY - Assessment Assessment:: The patient is a complex chronically ill 85-year-old lady who is doing better today. A discussion with the patient's family and the patient has indicated that she is not ready for hospice care yet. She is also wanting to remain a full code. The patient also had elevation of her uric acid at 7.4 mg/dL and we will treat the patient for provisional gout. She has been started on colchicine. The patient's gout is likely the cause of chemotherapy and/or radiation. She had not been previously on allopurinol after the therapy as this is unclear from her record. I have ordered repeat laboratory studies for the morning. PT OT is still continuing. Also to note that the patient is currently in atrial fibrillation however she is rate controlled and is currently contraindicated for pharmacological DVT prophylaxis due to her possible GI bleed. Fecal occult blood test is still pending. The patient also is at a fall risk and this is contraindicated for SCDs and the pain she is having is not amenable to antithrombotic stockings. Repeat laboratory studies have been ordered for the morning. The patient's magnesium has been replaced. She will continue on oxygen as necessary to keep her saturations above 92%. Patient should be able to be discharged to nursing facility 1 to 2 days. I have also advanced the patient's diet as tolerated.
--- NOTE | 2021-03-24 08:22 | CR ---
Chest: Portable view of the chest was obtained. Comparison: Prior chest x-ray of 03/08/21 Parenchymal density is seen within the right upper chest which is stable from prior exam. Lungs otherwise show diffuse parenchymal change which is increased from most recent exam. Heart is slightly enlarged. Mild chamber pacemaker is noted. Right-sided infusion port is seen. Bony structures are grossly intact. Impression: 1. Increasing parenchymal density on both sides of the chest. Differential includes diffuse infection versus pulmonary vascular congestion or combination of both etiologies. 2. Other findings as noted above which are stable. Diagnostic code #3
[2021-03-24] MEDS: Lisinopril 20 MG Tab PO SCH (08:30)
[2021-03-24] MEDS: Metoprolol Succinate 50 MG Tab.ER PO SCH (08:31)
[2021-03-24] MEDS: Folic Acid 1 MG Tab PO SCH (08:31)
[2021-03-24] MEDS: Cholecalciferol (Vitamin D3) 25 MCG Tab PO SCH (08:32)
[2021-03-24] MEDS: Pantoprazole 40 MG Vial IV SCH ×2 (08:33→21:18)
[2021-03-24] MEDS: Furosemide 40 MG/4 ML VIAL IVPUSH SCH (08:33)
[2021-03-24] MEDS: Psyllium Husk Powder Sugar Free 5.85 GM Packet PO SCH ×2 (08:36→21:21)
[2021-03-24] MEDS: Insulin Regular, Human 100 Units/ML 3 ML Vial SUBCUT SCH ×4 (08:36→19:46)
[2021-03-24] MEDS: Nystatin Crm 30 GM Tube TOP SCH ×4 (08:37→21:20)
[2021-03-24] MEDS ORDERED: Insulin Glarg,Human.Rec.Analog 100 Unit/ML SUBCUT SCH (09:00)
[2021-03-24] MEDS ORDERED: Magnesium Sulfate/Water 2 GM in Premix Bag 1 BAG IV ONE (10:51)
[2021-03-24] MEDS ORDERED: Colchicine 0.6 MG Tab PO ONE ×2 (12:30→13:30)
[2021-03-24] MEDS: Dexamethasone 4 MG Tab PO SCH (12:38)
[2021-03-24] MEDS: Latanoprost 0.005% Ophth Soln 2.5 ML Bottle EYEBOTH SCH (21:18)
[2021-03-24] MEDS: Gabapentin 100 MG Cap PO SCH (21:19)
[2021-03-25] MEDS: traMADol 50 MG Tab PO SCH ×4 (03:52→20:49)
[2021-03-25] MEDS: Levothyroxine 75 MCG Tab PO SCH (06:32)
[2021-03-25] MEDS ORDERED: Colchicine 0.6 MG Tab PO SCH (09:00)
--- NOTE | 2021-03-25 09:29 | PCM.DCSUM1 ---
Discharge Summary - Hospital Course HPI Initial Comments: The patient was admitted secondary to congestive heart failure and severe pain of her left foot. Diagnosis: Stroke: No - Discharge Data Discharge Date: 03/26/21 Discharge Disposition: DC/Tfer to SNF 03 Condition: Good - Referral to Home Health Primary Care Physician: Mushtaq Andrews MD - Discharge Diagnosis/Problem(s) (1) Gout involving toe of left foot SNOMED Code(s): 013448070 ICD Code: M10.9 - GOUT, UNSPECIFIED Status: Chronic Priority: High Current Visit: Yes Qualifiers: Gout etiology: drug-induced Chronicity: acute Qualified Code(s): M10.272 - Drug-induced gout, left ankle and foot (2) CHF exacerbation SNOMED Code(s): 554883105, 18437219119754 ICD Code: I50.9 - HEART FAILURE, UNSPECIFIED Status: Chronic Priority: [facility] Current Visit: Yes Qualifiers: Heart failure type: unspecified Qualified Code(s): I50.9 - Heart failure, unspecified (3) Chronic renal insufficiency, stage III (moderate) SNOMED Code(s): 940136454 ICD Code: N18.30 - CHRONIC KIDNEY DISEASE, STAGE 3 UNSPECIFIED Status: Chronic Priority: Medium Current Visit: Yes Qualifiers: Chronic kidney disease stage 3 subtype: stage 3b (GFR 30-44) Qualified Code(s): N18.32 - Chronic kidney disease, stage 3b (4) Diabetes mellitus SNOMED Code(s): 74634275 ICD Code: E11.9 - TYPE 2 DIABETES MELLITUS WITHOUT COMPLICATIONS Status: Chronic Priority: Medium Current Visit: Yes Qualifiers: Diabetes mellitus type: type 2 Diabetes mellitus slab tripper insulin use: without slab tripper use Diabetes mellitus complication status: with neurologic complications Diabetes mellitus complication detail: with mononeuropathy Qualified Code(s): E11.41 - Type 2 diabetes mellitus with diabetic mononeuropathy (5) History of cardiac pacemaker SNOMED Code(s): 048751921 ICD Code: Z95.0 - PRESENCE OF CARDIAC PACEMAKER Status: Chronic Priority: Medium Current Visit: Yes (6) Metastatic adenocarcinoma to brain SNOMED Code(s): 709435440, 115638462 ICD Code: C79.31 - SECONDARY MALIGNANT NEOPLASM OF BRAIN Status: Chronic Priority: High Current Visit: Yes (7) Atrial fibrillation SNOMED Code(s): 21668210 ICD Code: I48.91 - UNSPECIFIED ATRIAL FIBRILLATION Status: Acute Priority: High Current Visit: Yes Qualifiers: Atrial fibrillation type: unspecified Qualified Code(s): I48.91 - Unsp ecified atrial fibrillation - Patient Summary/Data Consults: Consultations 03/23/21 18:34 Consult to Case Management/Spanish [employer] Picker [CONS] Routine OT Evaluation and Treatment [CONS] Routine PT Evaluation and Treatment [CONS] Routine 03/24/21 10:58 Consult to Speech Language Pathology [CORNETIST Evaluation and Treatment] [CONS] Routine Hospital Course: The patient was retained in acute hospitalization 1 extra day due to the availability of detention facility. The patient is an 85-year-old lady who is chronically ill and medically complex. The patient was found to be desaturating in her [facility] living center and had oxygen saturations of 75% on room air. The patient was recently discharged from acute hospitalization here on March 12, 2021. She had been admitted then for worsening of congestive heart failure. The patient also says her primary concern is left foot pain. Patient says that she also has a rash to her left foot but the pain has been so severe. The patient's pain is located predominantly in her left foot and does not seem to radiate. The patient says that the tramadol that she has been taking is only providing temporary relief. The patient also says that she prior to presentation had an episode of vomiting where she may have choked. Initially on presentation the patient had remained hypoxic and had to be on oxygen to keep her saturations around 92%. By day of discharge the patient had been doing well and her saturations have remained between 90 and 92%. The patient may need oxygen at a later date. The patient does have a significant history of a right-sided lower lobectomy along with metastatic lung cancer and radiation treatment to the left lung. Patient also has metastatic adenocarcinoma to her brain. She has undergone radiation therapy for her brain lesions. Initially the patient's overriding concern had been the pain in her left leg and left foot. Uric acid was obtained which was elevated at 7.4 mg/dL. The patient had been placed on colchicine and had complete resolution of her pain. It was felt that the gout flare was secondary to her chemotherapy and radiation treatment. The patient is discharged on allopurinol 150 mg p.o. daily to help reduce the uric acid and this was renally adjusted. The patient also had been discharged on colchicine 0.3 mg to take whenever she has a painful gout flare. The patient also had been diuresed as it was felt that she had a component of heart failure as well. The patient initially had B- type natriuretic peptide of 9361. Her ARAMIS's did show that she had been down by 2 L initially and by 3 L upon discharge. The patient has been tolerating the Lasix. She was represcribed Lasix at 40 mg p.o. daily along with potassium supplement. On day 2 of her hospitalization the patient had developed atrial fibrillation and this was confirmed by EKG. The patient also will be discharged on renal dosed Eliquis 2.5 mg p.o. twice daily. The patient also had been complaining of black stools initially but these have resolved. Her hemoglobin has remained stable. She has not required transfusions. The patient also has been tolerating her diabetic diet. Physical therapy has recommended detention facility for rehabilitation to help the patient improve from her physical deconditioning due to her recent hospitalization as well. On day of discharge the patient's hemoglobin was at 8.1 g/dL her potassium had normalized to 3.5 mmol/L. It is also recommended at this time of the patient follow-up w ith her primary care physician to help monitor her renal function. The patient has been recommended to continue with her diabetic diet as tolerated. She is also to have activity as tolerated in the detention facility. The patient is also hemodynamically stable and she is discharged from acute hospitalization to detention facility with the recommendations listed above. The patient also has remained in a full resuscitation CODE STATUS as that is her desire. The patient is felt to be a high readmission risk due to her multiple chronic issues and metastatic cancer. - Patient Instructions Diet: Diabetic Diet Activity: As Tolerated - Discharge Plan *PRESCRIPTION DRUG MONITORING PROGRAM REVIEWED*: No *COPY OF PRESCRIPTION DRUG MONITORING REPORT IN PATIENT TOBY: No Prescriptions/Med Rec: Colchicine 0.6 mg PO DAILY PRN #30 tablet PRN Reason: Other Apixaban [Eliquis] 5 mg PO BID #60 tablet Furosemide [Lasix] 40 mg PO DAILY #30 tablet Allopurinol [Zyloprim] 300 mg PO DAILY #30 tablet Home Medications: Home Meds Levothyroxine 75 mcg PO DAILY 12/10/15 [History] Lisinopril 40 mg PO DAILY 12/10/15 [History] Latanoprost 1 drop EYEBOTH BEDTIME 10/20/16 [History] Prochlorperazine [Compazine] 10 mg PO QID PRN 05/03/17 [History] Psyllium Husk [Metamucil] 1 tsp PO BID 07/30/17 [History] traMADol [Ultram] 50 mg PO Q6H PRN 03/17/18 [History] Cholecalciferol (Vitamin D3) [Vitamin D3] 2,000 units PO DAILY 12/30/18 [History] Nitroglycerin [Nitrostat] 0.4 mg PO ASDIRECTED PRN 09/24/20 [History] [place]-3/DHA/Epa/Fish Oil [[place] 3 500 Softgel] 1,000 mg PO DAILY 09/24/20 [History] Ondansetron [Zofran] 4 mg PO Q6H PRN 09/24/20 [History] atorvaSTATin [Lipitor] 40 mg PO BEDTIME 09/24/20 [History] Folic Acid 1 mg PO DAILY 03/08/21 [History] Insulin Glarg,Human.Rec.Analog [Lantus] 13 unit SUBCUT DAILY 03/08/21 [History] OLANZapine [ZyPREXA] 10 mg PO ASDIRECTED PRN 03/08/21 [History] Metoprolol Succinate [Toprol Xl] 100 mg PO DAILY 30 Days #30 tab 03/09/21 [Rx] Acetaminophen [Tylenol 8 Hour] 650 mg PO Q4HR PRN 03/23/21 [History] dexAMETHasone [Dexamethasone] 8 mg PO DAILY PRN 03/23/21 [History] Allopurinol [Zyloprim] 300 mg PO DAILY #30 tablet 03/25/21 [Rx] Apixaban [Eliquis] 5 mg PO BID #60 tablet 03/25/21 [Rx] Colchicine 0.6 mg PO DAILY PRN #30 tablet 03/25/21 [Rx] Furosemide [Lasix] 40 mg PO DAILY #30 tablet 03/25/21 [Rx] Oxygen Therapy Mode: Nasal Cannula Oxygen Flow Rate (L/min): 2 Patient Handouts: Gout, [id number], Heart Failure, Self Care, [id number], Living With Heart Failure Forms: ED Department Discharge Referrals: Bright Koenig MD [Ordering Only Provider] - 04/02/21 11:45 am (this will be a video visis by [email or web address] ) - Discharge Summary/Plan Comment DC Time >30 min.: Yes - General Info Date of Service: 03/26/21 Admission Dx/Problem (Free Text: Admission Diagnosis/Problem Admission Diagnosis/Problem Congestive heart failure Subjective Update: The patient was examined today. She is doing better. She has been tolerating her diet but she has not been eating as much. She does have Ensure or boost available for her. Her pain is resolved. She has been ambulating. The patient is looking forward to going to rehab so she can return home. Functional Status: Reports: Pain Controlled, Tolerating Diet - Review of Systems General: Reports: Weakness, Fatigue HEENT: Reports: No Symptoms Pulmonary: Reports: No Symptoms Cardiovascular: Reports: No Symptoms Gastrointestinal: Reports: No Symptoms Genitourinary: Reports: No Symptoms Musculoskeletal: Reports: No Symptoms Skin: Reports: No Symptoms Neurological: Reports: No Symptoms Psychiatric: Reports: No Symptoms - Patient Data Vitals - Most Recent: Last Vital Signs Temp 36.6 C 03/25/21 07:58 Pulse 81 03/25/21 07:58 Resp 20 03/25/21 07:58 BP 126/73 03/25/21 07:58 Pulse Ox 100 03/25/21 07:58 Weight - Most Recent: 81.556 kg I&O - Last 24 hours: Intake & Output 03/24/21 03/25/21 03/25/21 22:59 06:59 14:59 Intake Total 1070 100 Output Total 1000 375 Balance 70 -275 Lab Results - Last 24 hrs: Laboratory Results - last 24 hr 03/24/21 03/24/21 03/24/21 Range/Units 05:43 11:07 16:59 WBC (3.98-10.04) K/mm3 RBC (3.98-5.22) M/mm3 Hgb (11.2-15.7) gm/dl Hct (34.1-44.9) % MCV (79.4-94.8) fl MCH (25.6-32.2) pg MCHC (32.2-35.5) g/dl RDW Std Deviation (36.4-46.3) fL Plt Count (182-369) K/mm3 MPV (9.4-12.3) fl Neut % (Auto) (34.0-71.1) % Lymph % (Auto) (19.3-51.7) % [place] % (Auto) (4.7-12.5) % Eos % (Auto) (0.7-5.8) Baso % (Auto) (0.1-1.2) % Neut # (Auto) (1.56-6.13) K/mm3 Lymph # (Auto) (1.18-3.74) K/mm3 [place] # (Auto) (0.24-0.36) K/mm3 Eos # (Auto) (0.04-0.36) K/mm3 Baso # (Auto) (0.01-0.08) K/mm3 Manual Slide Review Sodium (136-145) mEq/L Potassium (3.5-5.1) mEq/L Chloride (98-107) mEq/L Carbon Dioxide (21-32) mEq/L Anion Gap (5-15) BUN (7-18) mg/dL Creatinine (0.55-1.02) mg/dL Est Cr Clr Drug Dosing mL/min Estimated GFR (MDRD) (>60) mL/min BUN/Creatinine Ratio (14-18) Glucose (70-99) mg/dL POC Glucose 104 H 103 H (70-99) mg/dL Uric Acid 7.4 H (2.6-6.0) mg/dL Calcium (8.5-10.1) mg/dL Magnesium (1.8-2.4) mg/dL Total Bilirubin (0.2-1.0) mg/dL AST (15-37) U/L ALT (14-59) U/L Alkaline Phosphatase (46-116) U/L C-Reactive Protein (<1.0) mg/dL Total Protein (6.4-8.2) g/dl Albumin (3.4-5.0) g/dl Globulin gm/dL Albumin/Globulin Ratio (1-2) 03/24/21 03/25/21 03/25/21 Range/Units 21:36 05:40 05:40 WBC 8.13 (3.98-10.04) K/mm3 RBC 2.29 L (3.98-5.22) M/mm3 Hgb 8.0 L (11.2-15.7) gm/dl Hct 24.8 L (34.1-44.9) % MCV 108.3 H (79.4-94.8) fl MCH 34.9 H (25.6-32.2) pg MCHC 32.3 (32.2-35.5) g/dl RDW Std Deviation 73.0 H (36.4-46.3) fL Plt Count 235 (182-369) K/mm3 MPV 10.4 (9.4-12.3) fl Neut % (Auto) 71.2 H (34.0-71.1) % Lymph % (Auto) 11.6 L (19.3-51.7) % [place] % (Auto) 16.7 H (4.7-12.5) % Eos % (Auto) 0.4 L (0.7-5.8) Baso % (Auto) 0.1 (0.1-1.2) % Neut # (Auto) 5.79 (1.56-6.13) K/mm3 Lymph # (Auto) 0.94 L (1.18-3.74) K/mm3 [place] # (Auto) 1.36 H (0.24-0.36) K/mm3 Eos # (Auto) 0.03 L (0.04-0.36) K/mm3 Baso # (Auto) 0.01 (0.01-0.08) K/mm3 Manual Slide Review Abnormal smear Sodium 139 (136-145) mEq/L Potassium 3.4 L (3.5-5.1) mEq/L Chloride 100 (98-107) mEq/L Carbon Dioxide 31 (21-32) mEq/L Anion Gap 11.4 (5-15) BUN 23 H (7-18) mg/dL Creatinine 1.7 H (0.55-1.02) mg/dL Est Cr Clr Drug Dosing 21.27 mL/min Estimated GFR (MDRD) 29 (>60) mL/min BUN/Creatinine Ratio 13.5 L (14-18) Glucose 101 H (70-99) mg/dL POC Glucose 126 H (70-99) mg/dL Uric Acid (2.6-6.0) mg/dL Calcium 8.5 (8.5-10.1) mg/dL Magnesium 1.9 (1.8-2.4) mg/dL Total Bilirubin 0.8 (0.2-1.0) mg/dL AST 18 (15-37) U/L ALT 26 (14-59) U/L Alkaline Phosphatase 51 (46-116) U/L C-Reactive Protein 15.6 H* (<1.0) mg/dL Total Protein 6.0 L (6.4-8.2) g/dl Albumin 2.3 L (3.4-5.0) g/dl Globulin 3.7 gm/dL Albumin/Globulin Ratio 0.6 L (1-2) 03/25/21 Range/Units 06:27 WBC (3.98-10.04) K/mm3 RBC (3.98-5.22) M/mm3 Hgb (11.2-15.7) gm/dl Hct (34.1-44.9) % MCV (79.4-94.8) fl MCH (25.6-32.2) pg MCHC (32.2-35.5) g/dl RDW Std Deviation (36.4-46.3) fL Plt Count (182-369) K/mm3 MPV (9.4-12.3) fl Neut % (Auto) (34.0-71.1) % Lymph % (Auto) (19.3-51.7) % [place] % (Auto) (4.7-12.5) % Eos % (Auto) (0.7-5.8) Baso % (Auto) (0.1-1.2) % Neut # (Auto) (1.56-6.13) K/mm3 Lymph # (Auto) (1.18-3.74) K/mm3 [place] # (Auto) (0.24-0.36) K/mm3 Eos # (Auto) (0.04-0.36) K/mm3 Baso # (Auto) (0.01-0.08) K/mm3 Manual Slide Review Sodium (136-145) mEq/L Potassium (3.5-5.1) mEq/L Chloride (98-107) mEq/L Carbon Dioxide (21-32) mEq/L Anion Gap (5-15) BUN (7-18) mg/dL Creatinine (0.55-1.02) mg/dL Est Cr Clr Drug Dosing mL/min Estimated GFR (MDRD) (>60) mL/min BUN/Creatinine Ratio (14-18) Glucose (70-99) mg/dL POC Glucose 100 H (70-99) mg/dL Uric Acid (2.6-6.0) mg/dL Calcium (8.5-10.1) mg/dL Magnesium (1.8-2.4) mg/dL Total Bilirubin (0.2-1.0) mg/dL AST (15-37) U/L ALT (14-59) U/L Alkaline Phosphatase (46-116) U/L C-Reactive Protein (<1.0) mg/dL Total Protein (6.4-8.2) g/dl Albumin (3.4-5.0) g/dl Globulin gm/dL Albumin/Globulin Ratio (1-2) LIANE Results - Last 24 hrs: Microbiology 03/23/21 16:10 Aerobic Blood Culture - Preliminary Blood - Venous - Lab Draw NO GROWTH AFTER 1 DAY Anaerobic Blood Culture - Preliminary NO GROWTH AFTER 1 DAY 03/23/21 15:53 Aerobic Blood Culture - Preliminary Blood - Venous NO GROWTH AFTER 1 DAY Anaerobic Blood Culture - Preliminary NO GROWTH AFTER 1 DAY Med Orders - Current: Current Medications Acetaminophen (Acetaminophen 325 Mg Tab) 650 mg PO Q4H PRN PRN Reason: Pain (Mild 1-3)/fever Cholecalciferol (Cholecalciferol (Vitamin D3) 25 Mcg Tab) 50 mcg PO DAILY [facility] Last Admin: 03/24/21 08:32 Dose: 50 mcg Documented by: Colchicine (Colchicine 0.6 Mg Tab) 0.3 mg PO DAILY [facility] Dexamethasone (Dexamethasone 4 Mg Tab) 8 mg PO DAILY [facility] Last Admin: 03/24/21 12:38 Dose: Not Given Documented by: Folic Acid (Folic Acid 1 Mg Tab) 1 mg PO DAILY [facility] Last Admin: 03/24/21 08:31 Dose: 1 mg Documented by: Furosemide (Furosemide 40 Mg/4 Ml Vial) 40 mg IVPUSH DAILY [facility] Last Admin: 03/24/21 08:33 Dose: 40 mg Documented by: Gabapentin (Gabapentin 100 Mg Cap) 100 mg PO BID [facility] Last Admin: 03/24/21 21:19 Dose: 100 mg Documented by: Insulin Human Regular (Insulin Regular, Human 100 Units/Ml 3 Ml Vial) 0 unit SUBCUT TIDPC [facility]; Protocol Last Admin: 03/24/21 19:46 Dose: Not Given Documented by: Latanoprost (Latanoprost 0.005% Ophth Soln 2.5 Ml Bottle) 0 ml EYEBOTH BEDTIME [facility] Last Admin: 03/24/21 21:18 Dose: 1 drop Documented by: Levothyroxine Sodium (Levothyroxine 75 Mcg Tab) 75 mcg PO ACBRK [facility] Last Admin: 03/25/21 06:32 Dose: 75 mcg Documented by: Lisinopril (Lisinopril 20 Mg Tab) 40 mg PO DAILY [facility] Last Admin: 03/24/21 08:30 Dose: 40 mg Documented by: Metoprolol Succinate (Metoprolol Succinate 50 Mg Tab.Er) 100 mg PO DAILY [facility] Last Admin: 03/24/21 08:31 Dose: 100 mg Documented by: Nystatin (Nystatin Crm 30 Gm Tube) 0 gm TOP QID [facility] Last Admin: 03/24/21 21:20 Dose: 1 applic Documented by: Ondansetron HCl (Ondansetron 4 Mg Tab.Dis) 4 mg PO Q6H PRN PRN Reason: Nausea Pantoprazole Sodium (Pantoprazole 40 Mg Vial) 40 mg IV Q12HR [facility] Last Admin: 03/24/21 21:18 Dose: 40 mg Documented by: Prochlorperazine Maleate (Prochlorperazine 5 Mg Tab) 10 mg PO QID PRN PRN Reason: Nausea Psyllium Husk (Psyllium Husk Powder Sugar Free 5.85 Gm Packet) 1 pkt PO BID [facility] Last Admin: 03/24/21 21:21 Dose: 1 pkt Documented by: Sodium Chloride (Sodium Chloride 0.9% 10 Ml Syringe) 10 ml FLUSH ASDIRECTED PRN PRN Reason: Keep Vein Open Last Admin: 03/23/21 15:39 Dose: 10 ml Documented by: Tramadol HCl (Tramadol 50 Mg Tab) 50 mg PO Q6H [facility] Last Admin: 03/25/21 03:52 Dose: 50 mg Documented by: Discontinued Medications Colchicine (Colchicine 0.6 Mg Tab) 1.2 mg PO ONETIME ONE Stop: 03/24/21 12:31 Last Admin: 03/24/21 12:39 Dose: 1.2 mg Documented by: Colchicine (Colchicine 0.6 Mg Tab) 0.6 mg PO ONETIME ONE Stop: 03/24/21 13:31 Last Admin: 03/24/21 14:06 Dose: 0.6 mg Documented by: Furosemide (Furosemide 40 Mg/4 Ml Vial) 40 mg IVPUSH ONETIME ONE Stop: 03/23/21 17:39 Last Admin: 03/23/21 17:48 Dose: 40 mg Documented by: Magnesium Sulfate 2 gm/ Premix 50 mls @ 25 mls/hr IV ONETIME ONE Stop: 03/24/21 12:50 Last Admin: 03/24/21 12:37 Dose: 25 mls/hr Documented by: Insulin Glargine (Insulin Glarg,Human.Rec.Analog 100 Unit/Ml) 13 unit SUBCUT DAILY [facility] Last Admin: 03/24/21 08:33 Dose: 13 units Documented by: Insulin Human Regular (Insulin Regular, Human 100 Units/Ml 3 Ml Vial) 0 unit SUBCUT TIDPC [facility]; Protocol Stop: 03/23/21 18:35 Last Admin: 03/23/21 21:08 Dose: Not Given Documented by: Lidocaine HCl (Lidocaine 2% Jelly 5 Ml Tube) 5 ml TOP ONETIME ONE Stop: 03/23/21 18:46 Last Admin: 03/23/21 19:01 Dose: 1 cartridge Documented by: Morphine Sulfate (Morphine 2 Mg/Ml Syringe) 1 mg IVPUSH ONETIME ONE Stop: 03/23/21 15:58 Last Admin: 03/23/21 16:16 Dose: 1 mg Documented by: Morphine Sulfate (Morphine 2 Mg/Ml Syringe) 1 mg IVPUSH ONETIME ONE Stop: 03/23/21 19:09 Last Admin: 03/23/21 19:12 Dose: 1 mg Documented by: Non-Formulary Medication (Olanzapine) 10 mg PO ASDIRECTED PRN PRN Reason: Other Ondansetron HCl (Ondansetron 4 Mg/2 Ml Sdv) 4 mg IVPUSH ONETIME ONE Stop: 03/23/21 15:58 Last Admin: 03/23/21 16:19 Dose: 4 mg Documented by: Oxycodone HCl (Oxycodone 5 Mg Tab) 5 mg PO Q4H PRN PRN Reason: Pain (moderate 4-6) Pantoprazole Sodium (Pantoprazole 40 Mg Vial) 40 mg IVPUSH ONETIME ONE Stop: 03/23/21 17:38 Last Admin: 03/23/21 17:50 Dose: 40 mg Documented by: - Exam Quality Assessment: Reports: DVT Prophylaxis (Anticoagulated with Eliquis due to new onset atrial fibrillation). Denies: Supplemental Oxygen General: Reports: Alert, Oriented, Cooperative, No Acute Distress HEENT: Reports: Pupils Equal, Pupils Reactive, EOMI, Mucous Membr. Moist/[place] Neck: Reports: Supple, Trachea Midline Lungs: Reports: Clear to Auscultation, Decreased Breath Sounds (Predominantly at right base) Cardiovascular: Reports: Regular Rate (75 bpm), Irregular Rhythm GI/Abdominal Exam: Normal Bowel Sounds, Soft, Non-Tender, No Distention (Female) Exam: Deferred Rectal (Female) Exam: Deferred Back Exam: Reports: Normal Inspection, Full Range of Motion Extremities: Normal Inspection, No Pedal Edema Skin: Reports: Warm, Dry, Intact Neurological: Reports: No New Focal Deficit Psy/Mental Status: Reports: Alert, Normal Affect, Normal Mood #1 Interpretation EKG Date: 03/25/21 Time: 11:20 Rhythm: A-Fib Rate (Beats/Min): 116 [place]: Normal P-Wave: Absent QRS: Normal ST-T: Normal QT: Prolonged (519 ms) Comparison: Change From Previous EKG EKG Interpretation Comments: New onset atrial fibrillation *Q Meaningful Use (DIS) - VTE *Q VTE Mechanical Contraindications *Q: At Risk for Falls VTE Pharmacological Contraindications *Q: Risk of Bleeding
[2021-03-25] MEDS: Cholecalciferol (Vitamin D3) 25 MCG Tab PO SCH (09:43)
[2021-03-25] MEDS: Metoprolol Succinate 50 MG Tab.ER PO SCH (09:43)
[2021-03-25] MEDS: Dexamethasone 4 MG Tab PO SCH (09:44)
[2021-03-25] MEDS: Pantoprazole 40 MG Vial IV SCH ×2 (09:44→20:48)
[2021-03-25] MEDS: Folic Acid 1 MG Tab PO SCH (09:45)
[2021-03-25] MEDS: Insulin Regular, Human 100 Units/ML 3 ML Vial SUBCUT SCH ×3 (09:45→18:09)
[2021-03-25] MEDS: Lisinopril 20 MG Tab PO SCH (09:46)
[2021-03-25] MEDS: Nystatin Crm 30 GM Tube TOP SCH ×4 (09:46→20:49)
[2021-03-25] MEDS: Psyllium Husk Powder Sugar Free 5.85 GM Packet PO SCH ×2 (09:47→20:47)
[2021-03-25] MEDS: Furosemide 40 MG/4 ML VIAL IVPUSH SCH (09:47)
[2021-03-25] MEDS: Gabapentin 100 MG Cap PO SCH (11:25)
--- NOTE | 2021-03-25 13:13 | PCM.PN ---
- General Info Date of Service: 03/25/21 Admission Dx/Problem (Free Text): Admission Diagnosis/Problem Admission Diagnosis/Problem Congestive heart failure Subjective Update: The patient is a medically complex, chronically ill 85-year-old lady who was admitted to acute hospitalization on March 23, 2021. The patient was retained 1 extra day and anticipated discharge is March 26, 2021. She had been admitted secondary to worsening CHF. The patient has been diuresed. She has had some nausea today. The patient is breathing better. She is currently on room air. Pain previously noted in her foot from the acute gout flare has resolved and she has been trying to ambulate. The patient also essentially has new onset atrial fibrillation and she has been started on Eliquis. Functional Status: Reports: Pain Controlled. Denies: Tolerating Diet - Review of Systems General: Reports: Weakness, Fatigue HEENT: Reports: No Symptoms Pulmonary: Reports: No Symptoms Cardiovascular: Reports: No Symptoms Gastrointestinal: Reports: Nausea Genitourinary: Reports: No Symptoms Musculoskeletal: Reports: No Symptoms Skin: Reports: No Symptoms Neurological: Reports: No Symptoms Psychiatric: Reports: No Symptoms - Patient Data Vitals - Most Recent: Last Vital Signs Temp 36.6 C 03/25/21 12:03 Pulse 88 03/25/21 12:10 Resp 20 03/25/21 12:03 BP 108/51 L 03/25/21 12:03 Pulse Ox 98 03/25/21 12:10 Weight - Most Recent: 81.556 kg I&O - Last 24 Hours: Intake & Output 03/24/21 03/25/21 03/25/21 22:59 06:59 14:59 Intake Total 1070 100 710 Output Total 1000 375 40 Balance 70 -275 670 Lab Results Last 24 Hours: Laboratory Results - last 24 hr 03/24/21 03/24/21 03/25/21 Range/Units 16:59 21:36 05:40 WBC 8.13 (3.98-10.04) K/mm3 RBC 2.29 L (3.98-5.22) M/mm3 Hgb 8.0 L (11.2-15.7) gm/dl Hct 24.8 L (34.1-44.9) % MCV 108.3 H (79.4-94.8) fl MCH 34.9 H (25.6-32.2) pg MCHC 32.3 (32.2-35.5) g/dl RDW Std Deviation 73.0 H (36.4-46.3) fL Plt Count 235 (182-369) K/mm3 MPV 10.4 (9.4-12.3) fl Neut % (Auto) 71.2 H (34.0-71.1) % Lymph % (Auto) 11.6 L (19.3-51.7) % [place] % (Auto) 16.7 H (4.7-12.5) % Eos % (Auto) 0.4 L (0.7-5.8) Baso % (Auto) 0.1 (0.1-1.2) % Neut # (Auto) 5.79 (1.56-6.13) K/mm3 Lymph # (Auto) 0.94 L (1.18-3.74) K/mm3 [place] # (Auto) 1.36 H (0.24-0.36) K/mm3 Eos # (Auto) 0.03 L (0.04-0.36) K/mm3 Baso # (Auto) 0.01 (0.01-0.08) K/mm3 Manual Slide Review Abnormal smear Sodium (136-145) mEq/L Potassium (3.5-5.1) mEq/L Chloride (98-107) mEq/L Carbon Dioxide (21-32) mEq/L Anion Gap (5-15) BUN (7-18) mg/dL Creatinine (0.55-1.02) mg/dL Est Cr Clr Drug Dosing mL/min Estimated GFR (MDRD) (>60) mL/min BUN/Creatinine Ratio (14-18) Glucose (70-99) mg/dL POC Glucose 103 H 126 H (70-99) mg/dL Calcium (8.5-10.1) mg/dL Magnesium (1.8-2.4) mg/dL Total Bilirubin (0.2-1.0) mg/dL AST (15-37) U/L ALT (14-59) U/L Alkaline Phosphatase (46-116) U/L C-Reactive Protein (<1.0) mg/dL Total Protein (6.4-8.2) g/dl Albumin (3.4-5.0) g/dl Globulin gm/dL Albumin/Globulin Ratio (1-2) 03/25/21 03/25/21 03/25/21 Range/Units 05:40 06:27 11:58 WBC (3.98-10.04) K/mm3 RBC (3.98-5.22) M/mm3 Hgb (11.2-15.7) gm/dl Hct (34.1-44.9) % MCV (79.4-94.8) fl MCH (25.6-32.2) pg MCHC (32.2-35.5) g/dl RDW Std Deviation (36.4-46.3) fL Plt Count (182-369) K/mm3 MPV (9.4-12.3) fl Neut % (Auto) (34.0-71.1) % Lymph % (Auto) (19.3-51.7) % [place] % (Auto) (4.7-12.5) % Eos % (Auto) (0.7-5.8) Baso % (Auto) (0.1-1.2) % Neut # (Auto) (1.56-6.13) K/mm3 Lymph # (Auto) (1.18-3.74) K/mm3 [place] # (Auto) (0.24-0.36) K/mm3 Eos # (Auto) (0.04-0.36) K/mm3 Baso # (Auto) (0.01-0.08) K/mm3 Manual Slide Review Sodium 139 (136-145) mEq/L Potassium 3.4 L (3.5-5.1) mEq/L Chloride 100 (98-107) mEq/L Carbon Dioxide 31 (21-32) mEq/L Anion Gap 11.4 (5-15) BUN 23 H (7-18) mg/dL Creatinine 1.7 H (0.55-1.02) mg/dL Est Cr Clr Drug Dosing 21.27 mL/min Estimated GFR (MDRD) 29 (>60) mL/min BUN/Creatinine Ratio 13.5 L (14-18) Glucose 101 H (70-99) mg/dL POC Glucose 100 H 202 H (70-99) mg/dL Calcium 8.5 (8.5-10.1) mg/dL Magnesium 1.9 (1.8-2.4) mg/dL Total Bilirubin 0.8 (0.2-1.0) mg/dL AST 18 (15-37) U/L ALT 26 (14-59) U/L Alkaline Phosphatase 51 (46-116) U/L C-Reactive Protein 15.6 H* (<1.0) mg/dL Total Protein 6.0 L (6.4-8.2) g/dl Albumin 2.3 L (3.4-5.0) g/dl Globulin 3.7 gm/dL Albumin/Globulin Ratio 0.6 L (1-2) Tod Results Last 24 Hours: Microbiology 03/23/21 16:10 Aerobic Blood Culture - Preliminary Blood - Venous - Lab Draw NO GROWTH AFTER 1 DAY Anaerobic Blood Culture - Preliminary NO GROWTH AFTER 1 DAY 03/23/21 15:53 Aerobic Blood Culture - Preliminary Blood - Venous NO GROWTH AFTER 1 DAY Anaerobic Blood Culture - Preliminary NO GROWTH AFTER 1 DAY Med Orders - Current: Current Medications Acetaminophen (Acetaminophen 325 Mg Tab) 650 mg PO Q4H PRN PRN Reason: Pain (Mild 1-3)/fever Cholecalciferol (Cholecalciferol (Vitamin D3) 25 Mcg Tab) 50 mcg PO DAILY [facility] Last Admin: 03/25/21 09:43 Dose: 50 mcg Documented by: Dexamethasone (Dexamethasone 4 Mg Tab) 8 mg PO DAILY [facility] Last Admin: 03/25/21 09:44 Dose: 8 mg Documented by: Folic Acid (Folic Acid 1 Mg Tab) 1 mg PO DAILY [facility] Last Admin: 03/25/21 09:45 Dose: 1 mg Documented by: Furosemide (Furosemide 40 Mg/4 Ml Vial) 40 mg IVPUSH DAILY [facility] Last Admin: 03/25/21 09:47 Dose: 40 mg Documented by: Insulin Human Regular (Insulin Regular, Human 100 Units/Ml 3 Ml Vial) 0 unit SUBCUT TIDPC [facility]; Protocol Last Admin: 03/25/21 12:22 Dose: Not Given Documented by: Latanoprost (Latanoprost 0.005% Ophth Soln 2.5 Ml Bottle) 0 ml EYEBOTH BEDTIME [facility] Last Admin: 03/24/21 21:18 Dose: 1 drop Documented by: Levothyroxine Sodium (Levothyroxine 75 Mcg Tab) 75 mcg PO ACBRK [facility] Last Admin: 03/25/21 06:32 Dose: 75 mcg Documented by: Lisinopril (Lisinopril 20 Mg Tab) 40 mg PO DAILY [facility] Last Admin: 03/25/21 09:46 Dose: 40 mg Documented by: Metoprolol Succinate (Metoprolol Succinate 50 Mg Tab.Er) 100 mg PO DAILY [facility] Last Admin: 03/25/21 09:43 Dose: 100 mg Documented by: Nystatin (Nystatin Crm 30 Gm Tube) 0 gm TOP QID [facility] Last Admin: 03/25/21 09:46 Dose: 30 applic Documented by: Ondansetron HCl (Ondansetron 4 Mg Tab.Dis) 4 mg PO Q6H PRN PRN Reason: Nausea Last Admin: 03/25/21 11:05 Dose: 4 mg Documented by: Pantoprazole Sodium (Pantoprazole 40 Mg Vial) 40 mg IV Q12HR [facility] Last Admin: 03/25/21 09:44 Dose: 40 mg Documented by: Prochlorperazine Maleate (Prochlorperazine 5 Mg Tab) 10 mg PO QID PRN PRN Reason: Nausea Psyllium Husk (Psyllium Husk Powder Sugar Free 5.85 Gm Packet) 1 pkt PO BID [facility] Last Admin: 03/25/21 09:47 Dose: 1 pkt Documented by: Sodium Chloride (Sodium Chloride 0.9% 10 Ml Syringe) 10 ml FLUSH ASDIRECTED PRN PRN Reason: Keep Vein Open Last Admin: 03/23/21 15:39 Dose: 10 ml Documented by: Tramadol HCl (Tramadol 50 Mg Tab) 50 mg PO Q6H [facility] Last Admin: 03/25/21 09:47 Dose: 50 mg Documented by: Discontinued Medications Colchicine (Colchicine 0.6 Mg Tab) 1.2 mg PO ONETIME ONE Stop: 03/24/21 12:31 Last Admin: 03/24/21 12:39 Dose: 1.2 mg Documented by: Colchicine (Colchicine 0.6 Mg Tab) 0.6 mg PO ONETIME ONE Stop: 03/24/21 13:31 Last Admin: 03/24/21 14:06 Dose: 0.6 mg Documented by: Furosemide (Furosemide 40 Mg/4 Ml Vial) 40 mg IVPUSH ONETIME ONE Stop: 03/23/21 17:39 Last Admin: 03/23/21 17:48 Dose: 40 mg Documented by: Gabapentin (Gabapentin 100 Mg Cap) 100 mg PO BID [facility] Last Admin: 03/25/21 11:25 Dose: Not Given Documented by: Magnesium Sulfate 2 gm/ Premix 50 mls @ 25 mls/hr IV ONETIME ONE Stop: 03/24/21 12:50 Last Admin: 03/24/21 12:37 Dose: 25 mls/hr Documented by: Insulin Glargine (Insulin Glarg,Human.Rec.Analog 100 Unit/Ml) 13 unit SUBCUT DA KEL [facility] Last Admin: 03/24/21 08:33 Dose: 13 units Documented by: Insulin Human Regular (Insulin Regular, Human 100 Units/Ml 3 Ml Vial) 0 unit SUBCUT TIDPC [facility]; Protocol Stop: 03/23/21 18:35 Last Admin: 03/23/21 21:08 Dose: Not Given Documented by: Lidocaine HCl (Lidocaine 2% Jelly 5 Ml Tube) 5 ml TOP ONETIME ONE Stop: 03/23/21 18:46 Last Admin: 03/23/21 19:01 Dose: 1 cartridge Documented by: Morphine Sulfate (Morphine 2 Mg/Ml Syringe) 1 mg IVPUSH ONETIME ONE Stop: 03/23/21 15:58 Last Admin: 03/23/21 16:16 Dose: 1 mg Documented by: Morphine Sulfate (Morphine 2 Mg/Ml Syringe) 1 mg IVPUSH ONETIME ONE Stop: 03/23/21 19:09 Last Admin: 03/23/21 19:12 Dose: 1 mg Documented by: Non-Formulary Medication (Olanzapine) 10 mg PO ASDIRECTED PRN PRN Reason: Other Ondansetron HCl (Ondansetron 4 Mg/2 Ml Sdv) 4 mg IVPUSH ONETIME ONE Stop: 03/23/21 15:58 Last Admin: 03/23/21 16:19 Dose: 4 mg Documented by: Oxycodone HCl (Oxycodone 5 Mg Tab) 5 mg PO Q4H PRN PRN Reason: Pain (moderate 4-6) Pantoprazole Sodium (Pantoprazole 40 Mg Vial) 40 mg IVPUSH ONETIME ONE Stop: 03/23/21 17:38 Last Admin: 03/23/21 17:50 Dose: 40 mg Documented by: - Exam Quality Assessment: Urine Catheter (Ordered removed), DVT Prophylaxis. No: [place] pplemental Oxygen Central Line Total Time: 1Days 12Hours Urinary Catheter Total Time: 1Days 17Hours General: Alert, Oriented, Cooperative, No Acute Distress HEENT: Pupils Equal, Pupils Reactive, EOMI, Mucous Membr. Moist/[place] Neck: Supple, Trachea Midline Lungs: Clear to Auscultation, Normal Respiratory Effort Cardiovascular: Regular Rate, Irregular Rhythm GI/Abdominal Exam: Normal Bowel Sounds, Soft, Non-Tender, No Distention (Female) Exam: Deferred Back Exam: Normal Inspection, Full Range of Motion Extremities: Normal Inspection, No Pedal Edema Skin: Warm, Dry, Intact Neurological: No New Focal Deficit Psy/Mental Status: Alert, Normal Affect, Normal Mood - Patient Data Lab Results Last 24 hrs: Laboratory Results - last 24 hr 03/24/21 03/24/21 03/25/21 Range/Units 16:59 21:36 05:40 WBC 8.13 (3.98-10.04) K/mm3 RBC 2.29 L (3.98-5.22) M/mm3 Hgb 8.0 L (11.2-15.7) gm/dl Hct 24.8 L (34.1-44.9) % MCV 108.3 H (79.4-94.8) fl MCH 34.9 H (25.6-32.2) pg MCHC 32.3 (32.2-35.5) g/dl RDW Std Deviation 73.0 H (36.4-46.3) fL Plt Count 235 (182-369) K/mm3 MPV 10.4 (9.4-12.3) fl Neut % (Auto) 71.2 H (34.0-71.1) % Lymph % (Auto) 11.6 L (19.3-51.7) % [place] % (Auto) 16.7 H (4.7-12.5) % Eos % (Auto) 0.4 L (0.7-5.8) Baso % (Auto) 0.1 (0.1-1.2) % Neut # (Auto) 5.79 (1.56-6.13) K/mm3 Lymph # (Auto) 0.94 L (1.18-3.74) K/mm3 [place] # (Auto) 1.36 H (0.24-0.36) K/mm3 Eos # (Auto) 0.03 L (0.04-0.36) K/mm3 Baso # (Auto) 0.01 (0.01-0.08) K/mm3 Manual Slide Review Abnormal smear Sodium (136-145) mEq/L Potassium (3.5-5.1) mEq/L Chloride (98-107) mEq/L Carbon Dioxide (21-32) mEq/L Anion Gap (5-15) BUN (7-18) mg/dL Creatinine (0.55-1.02) mg/dL Est Cr Clr Drug Dosing mL/min Estimated GFR (MDRD) (>60) mL/min BUN/Creatinine Ratio (14-18) Glucose (70-99) mg/dL POC Glucose 103 H 126 H (70-99) mg/dL Calcium (8.5-10.1) mg/dL Magnesium (1.8-2.4) mg/dL Total Bilirubin (0.2-1.0) mg/dL AST (15-37) U/L ALT (14-59) U/L Alkaline Phosphatase (46-116) U/L C-Reactive Protein (<1.0) mg/dL Total Protein (6.4-8.2) g/dl Albumin (3.4-5.0) g/dl Globulin gm/dL Albumin/Globulin Ratio (1-2) 03/25/21 03/25/21 03/25/21 Range/Units 05:40 06:27 11:58 WBC (3.98-10.04) K/mm3 RBC (3.98-5.22) M/mm3 Hgb (11.2-15.7) gm/dl Hct (34.1-44.9) % MCV (79.4-94.8) fl MCH (25.6-32.2) pg MCHC (32.2-35.5) g/dl RDW Std Deviation (36.4-46.3) fL Plt Count (182-369) K/mm3 MPV (9.4-12.3) fl Neut % (Auto) (34.0-71.1) % Lymph % (Auto) (19.3-51.7) % [place] % (Auto) (4.7-12.5) % Eos % (Auto) (0.7-5.8) Baso % (Auto) (0.1-1.2) % Neut # (Auto) (1.56-6.13) K/mm3 Lymph # (Auto) (1.18-3.74) K/mm3 [place] # (Auto) (0.24-0.36) K/mm3 Eos # (Auto) (0.04-0.36) K/mm3 Baso # (Auto) (0.01-0.08) K/mm3 Manual Slide Review Sodium 139 (136-145) mEq/L Potassium 3.4 L (3.5-5.1) mEq/L Chloride 100 (98-107) mEq/L Carbon Dioxide 31 (21-32) mEq/L Anion Gap 11.4 (5-15) BUN 23 H (7-18) mg/dL Creatinine 1.7 H (0.55-1.02) mg/dL Est Cr Clr Drug Dosing 21.27 mL/min Estimated GFR (MDRD) 29 (>60) mL/min BUN/Creatinine Ratio 13.5 L (14-18) Glucose 101 H (70-99) mg/dL POC Glucose 100 H 202 H (70-99) mg/dL Calcium 8.5 (8.5-10.1) mg/dL Magnesium 1.9 (1.8-2.4) mg/dL Total Bilirubin 0.8 (0.2-1.0) mg/dL AST 18 (15-37) U/L ALT 26 (14-59) U/L Alkaline Phosphatase 51 (46-116) U/L C-Reactive Protein 15.6 H* (<1.0) mg/dL Total Protein 6.0 L (6.4-8.2) g/dl Albumin 2.3 L (3.4-5.0) g/dl Globulin 3.7 gm/dL Albumin/Globulin Ratio 0.6 L (1-2) Result Diagrams: 03/25/21 05:40 03/25/21 05:40 Tod Results Last 24 hrs: Microbiology 03/23/21 16:10 Aerobic Blood Culture - Preliminary Blood - Venous - Lab Draw NO GROWTH AFTER 1 DAY Anaerobic Blood Culture - Preliminary NO GROWTH AFTER 1 DAY 03/23/21 15:53 Aerobic Blood Culture - Preliminary Blood - Venous NO GROWTH AFTER 1 DAY Anaerobic Blood Culture - Preliminary NO GROWTH AFTER 1 DAY Sepsis Event Note - Evaluation Sepsis Screening Result: No Definite Risk - Focused Exam Vital Signs: Vital Signs Temp Pulse Resp BP Pulse Ox Pulse Ox Pulse Ox 03/25/21 12:10 88 98 03/25/21 12:03 36.6 C 104 H 20 108/51 L 90 L 03/25/21 11:00 96 03/25/21 10:52 131/71 03/25/21 09:46 126/73 03/25/21 09:43 81 126/73 03/25/21 07:58 36.6 C 81 20 126/73 100 03/25/21 06:31 94 L 03/25/21 06:15 97 03/25/21 03:56 36.6 C 99 18 115/51 L 98 - Problem List & Annotations (1) Gout involving toe of left foot SNOMED Code(s): 089326611 Code(s): M10.9 - GOUT, UNSPECIFIED Status: Chronic Priority: High Current Visit: Yes Qualifiers: Gout etiology: drug-induced Chronicity: acute Qualified Code(s): M10.272 - Drug-induced gout, left ankle and foot (2) CHF exacerbation SNOMED Code(s): 084681952, 28801299811572 Code(s): I50.9 - HEART FAILURE, UNSPECIFIED Status: Chronic Priority: High Current Visit: Yes Qualifiers: Heart failure type: unspecified Qualified Code(s): I50.9 - Heart failure, unspecified (3) Chronic renal insufficiency, stage III (moderate) SNOMED Code(s): 609070549 Code(s): N18.30 - CHRONIC KIDNEY DISEASE, STAGE 3 UNSPECIFIED Status: Chronic Priority: Medium Current Visit: Yes Qualifiers: Chronic kidney disease stage 3 subtype: stage 3b (GFR 30-44) Qualified Code(s): N18.32 - Chronic kidney disease, stage 3b (4) Diabetes mellitus SNOMED Code(s): 88751816 Code(s): E11.9 - TYPE 2 DIABETES MELLITUS WITHOUT COMPLICATIONS Status: Chronic Priority: Medium Current Visit: Yes Qualifiers: Diabetes mellitus type: type 2 Diabetes mellitus 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 insulin use: without retirement use Diabetes mellitus complication status: with neurologic complications Diabetes mellitus complication detail: with mononeuropathy Qualified Code(s): E11.41 - Type 2 diabetes mellitus with diabetic mononeuropathy (5) History of cardiac pacemaker SNOMED Code(s): 829023192 Code(s): Z95.0 - PRESENCE OF CARDIAC PACEMAKER Status: Chronic Priority: Medium Current Visit: Yes (6) Metastatic adenocarcinoma to brain SNOMED Code(s): 142970644, 674122147 Code(s): C79.31 - SECONDARY MALIGNANT NEOPLASM OF BRAIN Status: Chronic Priority: High Current Visit: Yes (7) Atrial fibrillation SNOMED Code(s): 42726743 Code(s): I48.91 - UNSPECIFIED ATRIAL FIBRILLATION Status: Acute Priority: High Current Visit: Yes Qualifiers: Atrial fibrillation type: unspecified Qualified Code(s): I48.91 - Unspecified atrial fibrillation - Problem List Review Problem List Initiated/Reviewed/Updated: Yes - My Orders Last 24 Hours: My Active Orders 03/24/21 Dinner [employer] [place] Diet [DIET] 03/24/21 19:10 Renew/Continue Urinary Catheter [OM.PC] Routine 03/24/21 19:14 Renew/Continue Central Line Access [OM.PC] Routine 03/25/21 09:50 EKG 12 Lead [EKG Documentation Completion] [RC] STAT 03/25/21 11:25 Ready for Discharge [RC] PER UNIT ROUTINE - Assessment Assessment:: The patient is a complex chronically ill 85-year-old lady who is doing better today. A discussion with the patient's family and the patient has indicated that she is not ready for hospice care yet. She is also wanting to remain a full code. The patient also had elevation of her uric acid at 7.4 mg/dL and we will treat the patient for provisional gout. She has been started on colchicine. The patient's gout is likely the cause of chemotherapy and/or radiation. She had not been previously on allopurinol after the therapy as this is unclear from her record. I have ordered repeat laboratory studies for the morning. PT OT is still continuing. Also to note that the patient is currently in atrial fibrillation however she is rate controlled and is currently contraindicated for pharmacological DVT prophylaxis due to her possible GI bleed. Fecal occult blood test is still pending. The patient also is at a fall risk and this is contraindicated for SCDs and the pain she is having is not amenable to antithrombotic stockings. Repeat laboratory studies have been ordered for the morning. The patient's magnesium has been replaced. She will continue on oxygen as necessary to keep her saturations above 92%. Patient should be able to be discharged to nursing facility 1 to 2 days. I have also advanced the patient's diet as tolerated. - Plan Plan:: The patient is an 85-year-old lady who has a number of different chronic medical problems to include congestive heart failure. The patient was admitted secondary to exacerbation of her CHF. The patient has B-type natriuretic peptide is markedly elevated at 9361. The patient will be gently diuresed and her renal function will be monitored closely. Repeat laboratory studies have been ordered for the morning. The patient will also have diabetic diet along with Accu-Cheks AC. She also have bedside glucose monitoring. PT and OT have also been ordered for the patient due to her weakness. The patient is also on steroids for her brain metastases which can also interfere with her blood sugars. She will be kept on insulin to help manage this. The patient is also anemic and she will be monitored and if her hemoglobin drops below 7.0 g/dL will consider transfusion. The patient also has severe pain in her left foot this seems to be associated with a fungal rash. I have placed the patient on nystatin cream as well as lidocaine to help numb the skin area. I think that the patient's pain is not related to the fungal rash that is likely neuropathy secondary to either the diabetes, steroids, chemotherapy or brain metastases. The patient's pain control will be continued with her home usage of tramadol. The patient has an allergy to hydrocodone as well as codeine and this limits her narcotic pain usage. I had a long discussion with the patient's family regarding CODE STATUS and she is currently in a full CODE STATUS. Family is considering hospice care. They have said that the patient herself is not at the point where hospice care can be considered. The patient should be appropriate for discharge [facility] 1 to 2 days. 03/25/2021 The patient is an 85-year-old lady who is doing much better today. She has been retained in hospitalization and is currently awaiting placement. She is pain- free from the use of the colchicine and I placed the patient on allopurinol that has been renally dosed. Patient also has an EKG which has indicated atrial fibrillation on EKG with a rate of 116. Patient has been started on renally dosed Eliquis 2.5 mg p.o. twice daily. The patient has had chronic kidney disease and I have ordered repeat laboratory studies for the morning. She has also had hyperglycemic excursions and this has been addressed with the use of the sliding scale insulin. Continue blood pressure checks. Patient also has been on room air and this will be monitored in case she needs oxygen once more. Patient should be appropriate for discharge once bed and transportation are available.
[2021-03-25] MEDS ORDERED: Potassium Chloride 10 MEQ Tab.ER PO ONE (14:14)
[2021-03-25] MEDS: Latanoprost 0.005% Ophth Soln 2.5 ML Bottle EYEBOTH SCH (20:48)
[2021-03-26] MEDS: traMADol 50 MG Tab PO SCH ×2 (04:21→09:14)
[2021-03-26] MEDS: Levothyroxine 75 MCG Tab PO SCH (06:18)
[2021-03-26] MEDS: Psyllium Husk Powder Sugar Free 5.85 GM Packet PO SCH (09:11)
[2021-03-26 09:12] VITALS: BP 102/71; PULSE 110
[2021-03-26] MEDS: Metoprolol Succinate 50 MG Tab.ER PO SCH (09:12)
[2021-03-26] MEDS: Furosemide 40 MG/4 ML VIAL IVPUSH SCH (09:12)
[2021-03-26] MEDS: Lisinopril 20 MG Tab PO SCH (09:12)
[2021-03-26] MEDS: Cholecalciferol (Vitamin D3) 25 MCG Tab PO SCH (09:12)
[2021-03-26] MEDS: Dexamethasone 4 MG Tab PO SCH (09:12)
[2021-03-26] MEDS: Nystatin Crm 30 GM Tube TOP SCH ×2 (09:13→12:56)
[2021-03-26] MEDS: Pantoprazole 40 MG Vial IV SCH (09:13)
[2021-03-26] MEDS: Insulin Regular, Human 100 Units/ML 3 ML Vial SUBCUT SCH ×2 (09:13→12:55)
[2021-03-26] MEDS: Folic Acid 1 MG Tab PO SCH (09:14)
== END 2021-03-26 14:30 | DRG 292 ==
LOC: JD.ED 15:09 → SUPCPDRO 15:09 → JD.MS 18:34
PROVIDERS: ADMIT Internal Medicine; ATTEND Internal Medicine
DX: I13.0 Hypertensive heart and chronic kidney disease with heart failure and stage 1 through stage 4 chronic kidney disease, or unspecified chronic kidney disease (principal); C79.31 Secondary malignant neoplasm of brain; C34.31 Malignant neoplasm of lower lobe, right bronchus or lung; R09.02 Hypoxemia; C34.92 Malignant neoplasm of unspecified part of left bronchus or lung; I50.9 Heart failure, unspecified; M10.272 Drug-induced gout, left ankle and foot; D64.9 Anemia, unspecified; K92.2 Gastrointestinal hemorrhage, unspecified; H40.9 Unspecified glaucoma; N18.32 Chronic kidney disease, stage 3b; E11.41 Type 2 diabetes mellitus with diabetic mononeuropathy; I48.91 Unspecified atrial fibrillation; H54.7 Unspecified visual loss; E78.00 Pure hypercholesterolemia, unspecified; R91.1 Solitary pulmonary nodule; M19.90 Unspecified osteoarthritis, unspecified site; Z79.82 Long term (current) use of aspirin; G89.29 Other chronic pain; M54.9 Dorsalgia, unspecified; M79.7 Fibromyalgia; Z20.822 Contact with and (suspected) exposure to COVID-19; E11.22 Type 2 diabetes mellitus with diabetic chronic kidney disease; E03.9 Hypothyroidism, unspecified; E55.9 Vitamin D deficiency, unspecified; D63.1 Anemia in chronic kidney disease; Z86.19 Personal history of other infectious and parasitic diseases; Z98.49 Cataract extraction status, unspecified eye; Z90.49 Acquired absence of other specified parts of digestive tract; Z90.710 Acquired absence of both cervix and uterus; Z95.0 Presence of cardiac pacemaker; Z79.890 Hormone replacement therapy; Z79.899 Other long term (current) drug therapy; Z79.4 Long term (current) use of insulin; Z88.5 Allergy status to narcotic agent; Z88.8 Allergy status to other drugs, medicaments and biological substances; Z88.2 Allergy status to sulfonamides; Z96.643 Presence of artificial hip joint, bilateral
CPT/HCPCS: 36415; 51702; 71045; 80053; 81001; 83605; 83880; 84484; 85007; 85027; 85610; 85730; 86140; 86850; 86900; 86901; 87040 ×2; 96374 ×2; 96375; 99285; C9113; J1940; J2270; J2405; U0002; 51798; 80048; 82947; 83735; 84550; 85025; 87641; 92610-GN; 93005; 94760; 94761; 97110-GP; 97162-GP; 97530-GP; 99223; 99239; 99284; A9270-GY; J1642; J1815-GY; J3475; J8540; Q0164

== ENCOUNTER 2021-04-06 10:12 | Inpatient (IN) | payer MEDICARE, BC ==
[2021-04-06] MEDS ORDERED: Acetaminophen 325 MG Tab PO ONE (10:31)
[2021-04-06] MEDS ORDERED: Metoclopramide 10 MG/2 ML SDV IVPUSH ONE (10:31)
--- NOTE | 2021-04-06 10:31 | EDM.PDOC ---
ED HPI GENERAL MEDICAL PROBLEM - General Chief Complaint: Fever Stated Complaint: [facility] Time Seen by Provider: 04/06/21 10:16 Source of Information: Reports: Patient, EMS, Group Home Records History Limitations: Reports: No Limitations - History of Present Illness INITIAL COMMENTS - FREE TEXT/NARRATIVE: 85-year-old female presents to the ED from [facility] where she was discharged to I believe on 25 March. She was admitted to our hospital from March 23 until March 25 with an exacerbation of congestive heart failure and hypoxia with O2 sats as low as 75%. Patient suffers from primary right sided lung cancer having had previous right lower lobe lobectomy and radiation treatment. Subsequently developed cancer in her left lung requiring chemotherapy and radiation. She believes her last chemotherapy was 5 weeks ago when she has opted not to pursue any further aggressive management. Patient has known metastatic disease to the brain that has been treated with radiation as well. History of type 2 diabetes requiring insulin use. History of gout left foot and ankle which is somewhat improved apparently after using colchicine but still very tender today. Associated cough with development of fever and rigors overnight. She has not had a look at any of the sputum. Denies any dysuria urgency or frequency. Mild nausea with no vomiting. Patient is allergic to hydrocodone and codeine. She has been primarily using tramadol for pain control. Onset: Today, Sudden Onset Date: 04/06/21 Onset Time: 02:00 Duration: Hour(s):, Waxing/Waning Location: Reports: Chest (Mild paroxysmal minimally productive cough without hemoptysis.), Generalized (Rigors with chills earlier this morning. Treated with Tylenol at [facility]. She is unsure when she was last given last dose of Tylenol.) Quality: Reports: Other (Generalized ache. 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 Denies: Activity, Exercise, Lifting, Sick Contact, Trauma Associated Symptoms: Reports: Cough, cough w sputum, Fever/Chills (Mild headache.), Headaches, Loss of Appetite, Malaise, Nausea/Vomiting, Shortness of Breath, Weakness. Denies: Confusion, Chest Pain, Diaphoresis ( Fever and chills with rigors developing early this morning.), Rash, Seizure (With associated nausea without vomiting. 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 (Not sure of last dose.) - Related Data Allergies Allergy/AdvReac Type Severity Reaction Status Date / Time codeine Allergy Swollen Verified 04/06/21 14:53 Tongue duloxetine [From Cymbalta] Allergy Difficulty Verified 04/06/21 14:53 Breathing hydrocodone Allergy Swollen Verified 04/06/21 14:53 Tongue sulfamethoxazole Allergy Swelling Verified 04/06/21 14:53 [From Bactrim] trimethoprim [From Bactrim] Allergy Swelling Verified 04/06/21 14:53 fentanyl AdvReac Chest Pain Verified 04/06/21 14:53 hydromorphone [From Dilaudid] AdvReac Chills Verified 04/06/21 14:53 Home Meds: Home Meds Levothyroxine 75 mcg PO DAILY 12/10/15 [History] Lisinopril 40 mg PO DAILY 12/10/15 [History] Latanoprost 1 drop EYEBOTH BEDTIME 10/20/16 [History] Psyllium Husk [Metamucil] 1 tsp PO BID 07/30/17 [History] traMADol [Ultram] 50 mg PO Q6H PRN 03/17/18 [History] Cholecalciferol (Vitamin D3) [Vitamin D3] 2,000 units PO DAILY 12/30/18 [History] Nitroglycerin [Nitrostat] 0.4 mg PO ASDIRECTED PRN 09/24/20 [History] Gravity-3/DHA/Epa/Fish Oil [Gravity 3 500 Softgel] 1,000 mg PO BEDTIME 09/24/20 [History] Ondansetron [Zofran] 4 mg SL Q6H PRN 09/24/20 [History] atorvaSTATin [Lipitor] 40 mg PO BEDTIME 09/24/20 [History] Folic Acid 1 mg PO DAILY 03/08/21 [History] Insulin Glarg,Human.Rec.Analog [Lantus] 13 unit SUBCUT DAILY 03/08/21 [History] Metoprolol Succinate [Toprol Xl] 100 mg PO DAILY 30 Days #30 tab 03/09/21 [Rx] Acetaminophen [Tylenol 8 Hour] 650 mg PO Q4HR PRN 03/23/21 [History] Apixaban [Eliquis] 5 mg PO BID #60 tablet 03/25/21 [Rx] Furosemide [Lasix] 40 mg PO DAILY #30 tablet 03/25/21 [Rx] Allopurinol [Zyloprim] 150 mg PO DAILY 04/06/21 [History] Colchicine 0.3 mg PO DAILY 04/06/21 [History] Prochlorperazine Maleate [Compazine] 10 mg PO QID PRN 04/06/21 [History] Sennosides [Senna] 2 tab PO BEDTIME 04/06/21 [History] bisacodyL [Dulcolax] 10 mg PO DAILY PRN 04/06/21 [History] Past Medical History HEENT History: Reports: Cataract, Glaucoma, Impaired Vision Other HEENT History: Wears glasses PRN Cardiovascular History: Reports: Afib (She had atrial fibrillation while in hospital in late February. Started on Eliquis 2.5 mg twice daily), High Cholesterol, Hypertension, Pacemaker Other Cardiovascular History: chest pain/pressure, edema Respiratory History: Reports: SOB Other Respiratory History: Lung Cancer, Pulmonary nodule, Dyspnea on exertion. Patient reports right lower lobe lobectomy she believes 8 years ago. Followed with postoperative radiation to the right lung field. Currently has left lower lobe lung cancer with recent CT done showing increased nodularity. 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 Within 18 months to 2 years I believe she developed metastatic disease to the left lung which is received chemotherapy and radiation. More recently has been identified to have de), Metastatic (To brain and bone.), Other (See Below) Other Oncologic History: Metastasis to brain- radiation treated - Infectious Disease History Infectious Disease History: Reports: Chicken Pox, Measles, MRSA, Mumps, Novel Coronavirus, Shingles Other Infectious Disease History: MRSA culture was negative Aug 2020 - cleared of MRSA. - Past Surgical History HEENT Surgical History: Reports: Cataract Surgery Cardiovascular Surgical History: Reports: Pacer Respiratory Surgical History: Reports: Thoracotomy Other Respiratory Surgeries/Procedures: Bronchoscopy,Thoracotomy with RLL lobectomy GI Surgical History: Reports: Appendectomy, Colonoscopy Female Surgical History: Reports: Hysterectomy, Salpingo-Oophorectomy Endocrine Surgical History: Reports: Thyroidectomy Neurological Surgical History: Reports: None Musculoskeletal Surgical History: Reports: Hip Replacement Other Musculoskeletal Surgeries/Procedures:: bilateral total hip replacement Oncologic Surgical History: Reports: Lobectomy, Other (See Below) Other Oncologic Surgeries/Procedures: lymph node biopsy Dermatological Surgical History: Reports: None Social & Family History - Family History Family Medical History: No Pertinent Family History - Caffeine Use Caffeine Use: Reports: Soda Other Caffeine Use: every once in awhile - Living Situation & Occupation Living situation: Reports: , with Spouse, Extended Care Facility (Current ly a resident of [facility] since discharge from hospital March 25.) Occupation: Retired ED ROS GENERAL - Review of Systems Review Of Systems: See Below Constitutional: Reports: Fever, Chills, Malaise, Weakness, Fatigue, Decreased Appetite, Weight Loss HEENT: Reports: Glasses Respiratory: Reports: Shortness of Breath, Wheezing, Cough, Sputum. Denies: Pleuritic Chest Pain, Hemoptysis Cardiovascular: Reports: Blood Pressure Problem, Dyspnea on Exertion (Wearing JOHNATHAN hose bilaterally.), Edema, Orthopnea, Palpitations (Sometimes aware of palpitations. History of atrial fibrillation). Denies: Claudication, Lightheadedness Endocrine: Reports: Fatigue GI/Abdominal: Reports: Constipation, Decreased Appetite, Nausea. Denies: Diarrhea, Vomiting : Reports: Frequency, Incontinence (Occasional incontinence of urine mostly urge induced), Other Musculoskeletal: Reports: Neck Pain, Shoulder Pain, Back Pain, Joint Pain Skin: Reports: Bruising (Knees and hips at times.) Neurological: Reports: Confusion, Dizziness (Reported transient confusion but she is alert and oriented today.), Headache ( Occasional dizziness), Difficulty Walking (Marked difficulty walking. Primarily getting around with a wheelchair), Weakness. Denies: Numbness, Syncope, Tingling, Trouble Speaking Psychiatric: Reports: No Symptoms Hematologic/Lymphatic: Reports: Anemia Immunologic: Reports: No Symptoms ED EXAM, GENERAL - Physical Exam Exam: See Below Exam Limited By: No Limitations General Appearance: Alert, WD/WN, Moderate Distress, Other (Temperature is 36.2 degrees although she feels warmer than this. Heart rate was 67 and I felt sinus on exam. Respiratory was 26 with O2 sats of 93% on 2 L. BP is 150/64) Eye Exam: Bilateral Eye: Normal Inspection (Mild blepharal pallor without scleral icterus.), PERRL Throat/Mouth: Other (Tongue is mildly dry and coated. Oropharynx otherwise is normal.) Head: Atraumatic, Normocephalic. No: Facial Swelling, Facial Tenderness Neck: Limited Range of Motion. No: Carotid Bruit, Lymphadenopathy (L) (She has crepitus on lateral rotation and flexion.), Lymphadenopathy (R) Respiratory/Chest: No Respiratory Distress, No Accessory Muscle Use, Decreased Breath Sounds (Decreased air entry to both lower lung warren much worse on the right side as compared to the left. Dullness to percussion right side combined with pleural effusion), Rhonchi (Or wheezes. Scattered rhonchi upper anterior lobes is clear with coughing.), Wheezing, Other (Port-A-Cath right upper anterior chest. Pacemaker left upper anterior chest.). No: Lungs Clear, Normal Breath Sounds Cardiovascular: Regular Rate, Rhythm, No Edema, No Gallop, No Murmur, No Rub, Other (Patient is wearing bilateral JOHNATHAN stockings.). No: Normal Peripheral Pulses Peripheral Pulses: 2+: Carotid (L), Carotid (R), Posterior Tibial (L), Posterior Tibial (R), Dorsalis Pedis (L), Dorsalis Pedis (R) GI/Abdominal: Normal Bowel Sounds, Soft, Non-Tender, No Organomegaly, No Mass, Pelvis Stable. No: Hepatomegaly Back Exam: Normal Inspection, Decreased Range of Motion. No: CVA Tenderness (L), CVA Tenderness (R) Extremities: No Pedal Edema, Limited Range of Motion (Marked limitation in range of motion of left ankle. Evidence of osteoarthritic change in both knees), Increased Warmth (Left ankle it is extremely tender to touch combined with acute gouty arthritis. The joint is also warm to touch.). No: Normal Range of Motion Neurological: Alert, Oriented, CN II-XII Intact, Normal Cognition Psychiatric: Normal Affect, Normal Mood Skin Exam: Warm, Dry, Intact, No Rash (Notes suggest that she has a fungal infection dorsal aspect of her left foot. She has JOHNATHAN stockings in place which were not removed for my examination today), Pallor (Moderate pallor.) #1 Interpretation EKG Date: 04/06/21 Time: 11:11 Rhythm: Other (Atrial paced rhythm at 60 bpm.) Rate (Beats/Min): 71 (Frequent premature ventricular contractions) [place]: Normal P-Wave: Variable QRS: Other (Decreased voltage precordial leads abnormal R wave progression with late transition of R wave) ST-T: Other (T wave flattening V3 nonspecific) QT: Normal EKG Interpretation Comments: Abnormal ECG Course - Vital Signs Last Recorded V/S: Last Vital Signs Temp 36.2 C 04/06/21 10:51 Pulse 67 04/06/21 10:19 Resp 26 H 04/06/21 10:19 BP 150/64 H 04/06/21 10:19 Pulse Ox 93 L 04/06/21 11:13 - Orders/Labs/Meds Orders: Active Orders 24 hr Category Date Time Status RT Aerosol Therapy [RC] ASDIRECTED Care 04/06/21 10:52 Active Chest 1V Frontal [CR] Stat Exams 04/06/21 10:27 Taken CULTURE BLOOD [BC] Stat Lab 04/06/21 10:53 Received CULTURE BLOOD [BC] Stat Lab 04/06/21 11:04 Received Albuterol/Ipratropium [DuoNeb 3.0-0.5 MG/3 ML] Med 04/06/21 10:51 Active 3 ml NEB Q4H PRN Sodium Chloride 0.9% [Normal Saline] 1,000 ml Med 04/06/21 10:30 Active IV ASDIRECTED Blood Culture x2 Reflex Set [OM.PC] Stat Oth 04/06/21 10:28 Ordered Medication Orders Acetaminophen (Acetaminophen 325 Mg Tab) 650 mg PO Q4H PRN PRN Reason: Pain Albuterol/Ipratropium (Albuterol/Ipratropium 3.0-0.5 Mg/3 Ml Neb Soln) 3 ml NEB Q4H PRN PRN Reason: Shortness Of Breath/wheezing Last Admin: 04/06/21 11:11 Dose: 3 ml Documented by: HUANG Albuterol/Ipratropium (Albuterol/Ipratropium 3.0-0.5 Mg/3 Ml Neb Soln) 3 ml NEB Q4H PRN PRN Reason: Shortness Of Breath/wheezing Allopurinol (Allopurinol 300 Mg Tab) 150 mg PO DAILY [facility] Apixaban (Apixaban 2.5 Mg Tab) 2.5 mg PO BID [facility] Atorvastatin Calcium (Atorvastatin 40 Mg Tab) 40 mg PO BEDTIME [facility] Bisacodyl (Bisacodyl 5 Mg Tab) 10 mg PO DAILY PRN PRN Reason: Constipation Cholecalciferol (Cholecalciferol (Vitamin D3) 25 Mcg Tab) 50 mcg PO DAILY [facility] Colchicine (Colchicine 0.6 Mg Tab) 0.3 mg PO DAILY PRN PRN Reason: Other Folic Acid (Folic Acid 1 Mg Tab) 1 mg PO DAILY [facility] Furosemide (Furosemide 40 Mg Tab) 40 mg PO DAILY [facility] Sodium Chloride (Normal Saline) 1,000 mls @ 75 mls/hr IV ASDIRECTED [facility] Last Admin: 04/06/21 14:48 Dose: 75 mls/hr Documented by: Infusion: 04/06/21 14:48 Dose: 75 mls/hr Documented by: Admin: 04/06/21 10:51 Dose: 75 mls/hr Documented by: JANE Cefepime HCl 1 gm/ Sodium (Chloride) 50 mls @ 100 mls/hr IV Q24H [facility] Vancomycin HCl 1 gm/ Sodium (Chloride) 250 mls @ 250 mls/hr IV Q24H [facility] Last Admin: 04/06/21 14:47 Dose: 250 mls/hr Documented by: NORMA Insulin Glargine (Insulin Glarg,Human.Rec.Analog 100 Unit/Ml) 13 unit SUBCUT DAILY [facility] Latanoprost (Latanoprost 0.005% Ophth Soln 2.5 Ml Bottle) 0 ml EYEBOTH BEDTIME [facility] Levothyroxine Sodium (Levothyroxine 75 Mcg Tab) 75 mcg PO ACBREAKFAST [facility] Lisinopril (Lisinopril 20 Mg Tab) 40 mg PO DAILY [facility] Metoprolol Succinate (Metoprolol Succinate 50 Mg Tab.Er) 100 mg PO DAILY [facility] Nitroglycerin (Nitroglycerin 0.4 Mg Tab.Sl) 0.4 mg SL ASDIRECTED PRN PRN Reason: Chest Pain Psyllium Husk (Psyllium Husk Powder Sugar Free 5.85 Gm Packet) 1 pkt PO BID [facility] Senna (Sennosides 8.6 Mg Tab) 17.2 mg PO DAILY [facility] Tramadol HCl (Tramadol 50 Mg Tab) 50 mg PO Q6H PRN PRN Reason: Pain Last Admin: 04/06/21 14:51 Dose: 50 mg Documented by: NORMA Vancomycin HCl (Pharmacy To Dose - Vancomycin) 1 dose .XX ASDIRECTED [facility] Labs: Laboratory Tests 04/06/21 04/06/21 04/06/21 Range/Units 10:53 10:53 10:53 WBC 9.57 (3.98-10.04) K/mm3 RBC 2.18 L (3.98-5.22) M/mm3 Hgb 8.0 L (11.2-15.7) gm/dl Hct 25.1 L (34.1-44.9) % MCV 115.1 H D (79.4-94.8) fl MCH 36.7 H (25.6-32.2) pg MCHC 31.9 L (32.2-35.5) g/dl RDW Std Deviation 82.9 H (36.4-46.3) fL Plt Count 209 D (182-369) K/mm3 MPV 10.6 (9.4-12.3) fl Neut % (Auto) 77.4 H (34.0-71.1) % Lymph % (Auto) 7.5 L (19.3-51.7) % [place] % (Auto) 14.6 H (4.7-12.5) % Eos % (Auto) 0 L (0.7-5.8) Baso % (Auto) 0.1 (0.1-1.2) % Neut # (Auto) 7.40 H (1.56-6.13) K/mm3 Lymph # (Auto) 0.72 L (1.18-3.74) K/mm3 [place] # (Auto) 1.40 H (0.24-0.36) K/mm3 Eos # (Auto) 0.00 L (0.04-0.36) K/mm3 Baso # (Auto) 0.01 (0.01-0.08) K/mm3 Manual Slide Review Abnormal smear ESR (0-20) mm/hr PT 11.6 (9.7-12.0) SECONDS INR 1.09 APTT (21.7-31.4) SECONDS Sodium 139 (136-145) mEq/L Potassium 3.5 (3.5-5.1) mEq/L Chloride 101 (98-107) mEq/L Carbon Dioxide 31 (21-32) mEq/L Anion Gap 10.5 (5-15) BUN 30 H (7-18) mg/dL Creatinine 1.6 H (0.55-1.02) mg/dL Est Cr Clr Drug Dosing 22.60 mL/min Estimated GFR (MDRD) 31 (>60) mL/min BUN/Creatinine Ratio 18.8 H (14-18) Glucose 157 H (70-99) mg/dL Lactic Acid (0.4-2.0) mmol/L Uric Acid 6.4 H (2.6-6.0) mg/dL Calcium 8.7 (8.5-10.1) mg/dL Magnesium 1.6 L (1.8-2.4) mg/dL Total Bilirubin 0.8 (0.2-1.0) mg/dL AST 27 (15-37) U/L ALT 43 (14-59) U/L Alkaline Phosphatase 70 (46-116) U/L Troponin I 0.029 (0.00-0.056) ng/mL C-Reactive Protein 4.1 H* (<1.0) mg/dL NT-Pro-B Natriuret Pep (0-450) pg/mL Total Protein 6.4 (6.4-8.2) g/dl Albumin 2.8 L (3.4-5.0) g/dl Globulin 3.6 gm/dL Albumin/Globulin Ratio 0.8 L (1-2) Urine Color (Yellow) Urine Appearance (Clear) Urine pH (5.0-8.0) Ur Specific [place] (1.005-1.030) Urine Protein (Negative) Urine Glucose (UA) (Negative) Urine Ketones (Negative) Urine Occult Blood (Negative) Urine Nitrite (Negative) Urine Bilirubin (Negative) Urine Urobilinogen (0.2-1.0) Ur Leukocyte Esterase (Negative) Urine RBC (0-5) /hpf Urine WBC (0-5) /hpf Ur Epithelial Cells (0-5) /hpf Urine Bacteria (FEW) /hpf Urine Mucus (FEW) /hpf SARS-CoV-2 RNA (CATIE) (NEGATIVE) 04/06/21 04/06/21 04/06/21 Range/Units 10:53 10:53 10:53 WBC (3.98-10.04) K/mm3 RBC (3.98-5.22) M/mm3 Hgb (11.2-15.7) gm/dl Hct (34.1-44.9) % MCV (79.4-94.8) fl MCH (25.6-32.2) pg MCHC (32.2-35.5) g/dl RDW Std Deviation (36.4-46.3) fL Plt Count (182-369) K/mm3 MPV (9.4-12.3) fl Neut % (Auto) (34.0-71.1) % Lymph % (Auto) (19.3-51.7) % [place] % (Auto) (4.7-12.5) % Eos % (Auto) (0.7-5.8) Baso % (Auto) (0.1-1.2) % Neut # (Auto) (1.56-6.13) K/mm3 Lymph # (Auto) (1.18-3.74) K/mm3 [place] # (Auto) (0.24-0.36) K/mm3 Eos # (Auto) (0.04-0.36) K/mm3 Baso # (Auto) (0.01-0.08) K/mm3 Manual Slide Review ESR (0-20) mm/hr PT (9.7-12.0) SECONDS INR APTT 35.4 H (21.7-31.4) SECONDS Sodium (136-145) mEq/L Potassium (3.5-5.1) mEq/L Chloride (98-107) mEq/L Carbon Dioxide (21-32) mEq/L Anion Gap (5-15) BUN (7-18) mg/dL Creatinine (0.55-1.02) mg/dL Est Cr Clr Drug Dosing mL/min Estimated GFR (MDRD) (>60) mL/min BUN/Creatinine Ratio (14-18) Glucose (70-99) mg/dL Lactic Acid 1.1 (0.4-2.0) mmol/L Uric Acid (2.6-6.0) mg/dL Calcium (8.5-10.1) mg/dL Magnesium (1.8-2.4) mg/dL Total Bilirubin (0.2-1.0) mg/dL AST (15-37) U/L ALT (14-59) U/L Alkaline Phosphatase (46-116) U/L Troponin I (0.00-0.056) ng/mL C-Reactive Protein (<1.0) mg/dL NT-Pro-B Natriuret Pep 5068 H (0-450) pg/mL Total Protein (6.4-8.2) g/dl Albumin (3.4-5.0) g/dl Globulin gm/dL Albumin/Globulin Ratio (1-2) Urine Color (Yellow) Urine Appearance (Clear) Urine pH (5.0-8.0) Ur Specific [place] (1.005-1.030) Urine Protein (Negative) Urine Glucose (UA) (Negative) Urine Ketones (Negative) Urine Occult Blood (Negative) Urine Nitrite (Negative) Urine Bilirubin (Negative) Urine Urobilinogen (0.2-1.0) Ur Leukocyte Esterase (Negative) Urine RBC (0-5) /hpf Urine WBC (0-5) /hpf Ur Epithelial Cells (0-5) /hpf Urine Bacteria (FEW) /hpf Urine Mucus (FEW) /hpf SARS-CoV-2 RNA (CATIE) (NEGATIVE) 04/06/21 04/06/21 04/06/21 Range/Units 11:04 11:30 12:50 WBC (3.98-10.04) K/mm3 RBC (3.98-5.22) M/mm3 Hgb (11.2-15.7) gm/dl Hct (34.1-44.9) % MCV (79.4-94.8) fl MCH (25.6-32.2) pg MCHC (32.2-35.5) g/dl RDW Std Deviation (36.4-46.3) fL Plt Count (182-369) K/mm3 MPV (9.4-12.3) fl Neut % (Auto) (34.0-71.1) % Lymph % (Auto) (19.3-51.7) % [place] % (Auto) (4.7-12.5) % Eos % (Auto) (0.7-5.8) Baso % (Auto) (0.1-1.2) % Neut # (Auto) (1.56-6.13) K/mm3 Lymph # (Auto) (1.18-3.74) K/mm3 [place] # (Auto) (0.24-0.36) K/mm3 Eos # (Auto) (0.04-0.36) K/mm3 Baso # (Auto) (0.01-0.08) K/mm3 Manual Slide Review ESR 77 H (0-20) mm/hr PT (9.7-12.0) SECONDS INR APTT (21.7-31.4) SECONDS Sodium (136-145) mEq/L Potassium (3.5-5.1) mEq/L Chloride (98-107) mEq/L Carbon Dioxide (21-32) mEq/L Anion Gap (5-15) BUN (7-18) mg/dL Creatinine (0.55-1.02) mg/dL Est Cr Clr Drug Dosing mL/min Estimated GFR (MDRD) (>60) mL/min BUN/Creatinine Ratio (14-18) Glucose (70-99) mg/dL Lactic Acid (0.4-2.0) mmol/L Uric Acid (2.6-6.0) mg/dL Calcium (8.5-10.1) mg/dL Magnesium (1.8-2.4) mg/dL Total Bilirubin (0.2-1.0) mg/dL AST (15-37) U/L ALT (14-59) U/L Alkaline Phosphatase (46-116) U/L Troponin I (0.00-0.056) ng/mL C-Reactive Protein (<1.0) mg/dL NT-Pro-B Natriuret Pep (0-450) pg/mL Total Protein (6.4-8.2) g/dl Albumin (3.4-5.0) g/dl Globulin gm/dL Albumin/Globulin Ratio (1-2) Urine Color Yellow (Yellow) Urine Appearance Slt cloudy H (Clear) Urine pH 6.5 (5.0-8.0) Ur Specific [place] 1.015 (1.005-1.030) Urine Protein Negative (Negative) Urine Glucose (UA) Negative (Negative) Urine Ketones Negative (Negative) Urine Occult Blood Negative (Negative) Urine Nitrite Negative (Negative) Urine Bilirubin Negative (Negative) Urine Urobilinogen 0.2 (0.2-1.0) Ur Leukocyte Esterase Negative (Negative) Urine RBC 0-5 (0-5) /hpf Urine WBC 0-5 (0-5) /hpf Ur Epithelial Cells 5-10 H (0-5) /hpf Urine Bacteria Few (FEW) /hpf Urine Mucus Not seen (FEW) /hpf SARS-CoV-2 RNA (CATIE) Negative (NEGATIVE) Meds: Medications Generic Name Dose Route Start Last Admin Trade Name Freq PRN Reason Stop Dose Admin Acetaminophen 650 mg 04/06/21 13:10 Acetaminophen 325 Mg Tab PO Q4H PRN Pain Albuterol/Ipratropium 3 ml 04/06/21 10:51 04/06/21 11:11 Albuterol/Ipratropium 3.0-0.5 Mg/3 Ml Neb Soln NEB 3 ml Q4H PRN Administration Shortness Of Breath/wheezing Albuterol/Ipratropium 3 ml 04/06/21 13:13 Albuterol/Ipratropium 3.0-0.5 Mg/3 Ml Neb Soln NEB Q4H PRN Shortness Of Breath/wheezing Allopurinol 150 mg 04/07/21 09:00 Allopurinol 300 Mg Tab PO DAILY [facility] Apixaban 2.5 mg 04/06/21 21:00 Apixaban 2.5 Mg Tab PO BID [facility] Atorvastatin Calcium 40 mg 04/06/21 21:00 Atorvastatin 40 Mg Tab PO BEDTIME [facility] Bisacodyl 10 mg 04/06/21 13:10 Bisacodyl 5 Mg Tab PO DAILY PRN Constipation Cholecalciferol 50 mcg 04/07/21 09:00 Cholecalciferol (Vitamin D3) 25 Mcg Tab PO DAILY [facility] Colchicine 0.3 mg 04/06/21 13:10 Colchicine 0.6 Mg Tab PO DAILY PRN Other Folic Acid 1 mg 04/07/21 09:00 Folic Acid 1 Mg Tab PO DAILY [facility] Furosemide 40 mg 04/07/21 09:00 Furosemide 40 Mg Tab PO DAILY [facility] Sodium Chloride 1,000 mls @ 75 mls/hr 04/06/21 10:30 04/06/21 14:48 Normal Saline IV 75 mls/hr ASDIRECTED [facility]UCIO Administration Cefepime HCl 1 gm/ Sodium 50 mls @ 100 mls/hr 04/06/21 21:00 Chloride IV Q24H [facility] Vancomycin HCl 1 gm/ Sodium 250 mls @ 250 mls/hr 04/06/21 14:00 04/06/21 14:47 Chloride IV 250 mls/hr Q24H [facility] Administration Insulin Glargine 13 unit 04/07/21 09:00 Insulin Glarg,Human.Rec.Analog 100 Unit/Ml SUBCUT DAILY [facility] Latanoprost 0 ml 04/06/21 21:00 Latanoprost 0.005% Ophth Soln 2.5 Ml Bottle EYEBOTH BEDTIME [facility] Levothyroxine Sodium 75 mcg 04/07/21 06:00 Levothyroxine 75 Mcg Tab PO ACBREAKFAST [facility] Lisinopril 40 mg 04/07/21 09:00 Lisinopril 20 Mg Tab PO DAILY [facility] Metoprolol Succinate 100 mg 04/07/21 09:00 Metoprolol Succinate 50 Mg Tab.Er PO DAILY [facility] Nitroglycerin 0.4 mg 04/06/21 13:10 Nitroglycerin 0.4 Mg Tab.Sl SL ASDIRECTED PRN Chest Pain Psyllium Husk 1 pkt 04/06/21 21:00 Psyllium Husk Powder Sugar Free 5.85 Gm Packet PO BID [facility] Senna 17.2 mg 04/07/21 09:00 Sennosides 8.6 Mg Tab PO DAILY [facility] Tramadol HCl 50 mg 04/06/21 13:10 04/06/21 14:51 Tramadol 50 Mg Tab PO 50 mg Q6H PRN Administration Pain Vancomycin HCl 1 dose 04/06/21 13:15 Pharmacy To Dose - Vancomycin .XX ASDIRECTED [facility] Discontinued Medications Generic Name Dose Route Start Last Admin Trade Name Freq PRN Reason Stop Dose Admin Acetaminophen 650 mg 04/06/21 10:31 04/06/21 10:51 Acetaminophen 325 Mg Tab PO 04/06/21 10:32 650 mg ONETIME ONE Administration Apixaban 5 mg 04/06/21 21:00 Apixaban 5 Mg Tab PO BID [facility] Furosemide 60 mg 04/06/21 11:09 04/06/21 12:22 Furosemide 40 Mg/4 Ml Vial IVPUSH 04/06/21 11:10 60 mg NOW ONE Administration Ceftriaxone Sodium 2 gm/ 100 mls @ 200 mls/hr 04/06/21 11:33 04/06/21 12:23 Sodium Chloride IV 04/06/21 12:02 200 mls/hr ONETIME ONE Administration Metoclopramide HCl 5 mg 04/06/21 10:31 04/06/21 10:50 Metoclopramide 10 Mg/2 Ml Sdv IVPUSH 04/06/21 10:32 5 mg ONETIME ONE Administration - Radiology Interpretation Free Text/Narrative:: 85-year-old female presents to the ED from local longterm [facility]. She presents with acute onset of fever chills and rigors during the bpo specialist hours this morning. She states she does have a mildly productive cough. Patient has known primary right lower lung cancer with a right lower lower lobectomy in the past. She then developed metastatic disease to the left lung which has been treated with chemotherapy and radiation. 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 Brain has been treated with radiation as well. Last treatment with chemotherapy was approximate 5 weeks ago and she is elected to not receive any further chemo. She is opted for palliative and hospice care. Plan Tylenol 650 mg p.o. for low- grade fever. Chest x-ray of course to be done. CODE STATUS is DNR/DNI. - Re-Assessments/Exams Free Text/Narrative Re-Assessment/Exam: 04/06/21 11:07 portable chest x-ray reveals a moderate sized right-sided pleural effusion. Mild left-sided pleural effusion. Mild cardiomegaly. Evidence of metastatic disease to both lung warren appreciated. No definitive pneumonia noted. 04/06/21 11:35 White count is 9.57 with 77.4% neutrophils on the auto differential. Hemoglobin is low at 8.0 with hematocrit of 25.1. Platelet count is 209,000 04/06/21 12:40 Sed rate is elevated at 77. PT is 11.6 with an INR of 1.09 and a PTT of 35.4. Sodium 139 with a potassium of 3.5. Chloride 101 with a bicarb of 31. Anion gap is 10.5. BUN is 30 with a creatinine of 1.6 and a GFR of 31 i.e. stage IIIb renal insufficiency. Glucose elevated 157 patient is a diabetic. Lactic acid 1.1. Uric acid elevated at 6.4. Calcium 8.7 with a magnesium of 1.6 slightly low. Liver function normal. Troponin I is 0.029. C- reactive protein is 4.1. BNP today is 5068. Total protein 6.4 with an albumin fraction of 2.8. Urinalysis is slightly cloudy in appearance with negative leukocyte esterase and only 5-10 epithelial cells per micro. 04/06/21 12:49 I have discussed the findings of the tests with the 2 daughters are in the room and the patient. The plan will be to keep her in hospital for IV antibiotic therapy as she most likely is developing a pneumonia which is hiding behind pleural effusion etc. Her COVID-19 screen has not yet returned. 04/06/21 13:01 I have spoken with Dr. Banda on-call hospitalist and he will arrange for patient's admission to the med surgery floor for treatment of suspected early pneumonia with fever chills and rigors during the night and bilateral lung cancer. Patient is DNR/DNI. Associated anemia and congestive heart failure. Covid screen is pending Departure - Departure Time of Disposition: 13:02 Disposition: Admitted As Inpatient 67 Condition: Poor Clinical Impression: Acute febrile illness Lung cancer, primary, with metastasis from lung to other site Qualifiers: Laterality: right Qualified Code(s): C34.91 - Malignant neoplasm of unspecified part of right bronchus or lung Anemia Qualifiers: Anemia type: due to chronic kidney disease Chronic kidney disease stage: stage 3 (moderate) Chronic kidney disease stage 3 subtype: stage 3b (GFR 30-44) Qualified Code(s): N18.32 - Chronic kidney disease, stage 3b Chronic congestive heart failure Qualifiers: Heart failure type: unspecified Qualified Code(s): I50.9 - Heart failure, unspecified Pneumonia Qualifiers: Pneumonia type: due to unspecified organism Laterality: right Lung location: upper lobe of lung Qualified Code(s): J18.9 - Pneumonia, unspecified organism - Discharge Information *PRESCRIPTION DRUG MONITORING PROGRAM REVIEWED*: Not Applicable *COPY OF PRESCRIPTION DRUG MONITORING REPORT IN PATIENT TOBY: Not Applicable Sepsis Event Note (ED) - Evaluation Sepsis Screening Result: No Definite Risk - Focused Exam Vital Signs: Vital Signs Temp Temp Pulse Resp BP Pulse Ox Pulse Ox 04/06/21 11:13 93 L 04/06/21 10:51 36.2 C 04/06/21 10:19 36.2 C 67 26 H 150/64 H 93 L - My Orders Last 24 Hours: My Active Orders 04/06/21 10:27 Chest 1V Frontal [CR] Stat 04/06/21 10:28 Blood Culture x2 Reflex Set [OM.PC] Stat 04/06/21 10:30 Sodium Chloride 0.9% [Normal Saline] 1,000 ml IV ASDIRECTED 04/06/21 10:51 Albuterol/Ipratropium [DuoNeb 3.0-0.5 MG/3 ML] 3 ml NEB Q4H PRN 04/06/21 10:52 RT Aerosol Therapy [RC] ASDIRECTED 04/06/21 10:53 CULTURE BLOOD [BC] Stat 04/06/21 11:04 CULTURE BLOOD [BC] Stat - Assessment/Plan Last 24 Hours: My Active Orders 04/06/21 10:27 Chest 1V Frontal [CR] Stat 04/06/21 10:28 Blood Culture x2 Reflex Set [OM.PC] Stat 04/06/21 10:30 Sodium Chloride 0.9% [Normal Saline] 1,000 ml IV ASDIRECTED 04/06/21 10:51 Albuterol/Ipratropium [DuoNeb 3.0-0.5 MG/3 ML] 3 ml NEB Q4H PRN 04/06/21 10:52 RT Aerosol Therapy [RC] ASDIRECTED 04/06/21 10:53 CULTURE BLOOD [BC] Stat 04/06/21 11:04 CULTURE BLOOD [BC] Stat
[2021-04-06] MEDS ORDERED: Albuterol/Ipratropium 3.0-0.5 MG/3 ML Neb Soln NEB PRN ×2 (10:51→13:13)
[2021-04-06] MEDS: Sodium Chloride 0.9% 1,000 ML IV SCH ×2 (10:51→14:48)
[2021-04-06] MEDS ORDERED: Furosemide 40 MG/4 ML VIAL IVPUSH ONE (11:09)
[2021-04-06] MEDS ORDERED: cefTRIAXone 2 GM in Sodium Chloride 0.9% 100 ML IV ONE (11:33)
[2021-04-06] MEDS ORDERED: Bisacodyl 5 MG Tab PO PRN (13:10)
[2021-04-06] MEDS ORDERED: Nitroglycerin 0.4 MG Tab.SL SL PRN (13:10)
[2021-04-06] MEDS ORDERED: Colchicine 0.6 MG Tab PO PRN (13:10)
[2021-04-06] MEDS: traMADol 50 MG Tab PO PRN (14:51)
--- NOTE | 2021-04-06 16:57 | PCM.HP.2 ---
H&P History of Present Illness - General Date of Service: 04/06/21 Admit Problem/Dx: Admission Diagnosis/Problem Admission Diagnosis/Problem Fever in adult Source of Information: Patient, Family, Provider - History of Present Illness Initial Comments - Free Text/Narative: Patient is an 85-year-old female with a past medical history as listed below who presents to the [facility] emergency department with her 2 daughters from [facility] with a chief complaint of cough, subjective fever, and rigors starting last night. According to the patient's own history supplemented by one of her daughters, she was doing okay up until about 36 hours ago when they started 10 notice a nagging cough. This will cough was productive for some discolored sputum which was mostly yellow. She did not have a fever until last night. She developed significant rigors early in the morning which was noted by a third daughter who is not present. This was also noted by staff. She was also appearing weak and mildly toxic. For this reason she was transported to the hospital for further evaluation. Since presenting to the ER her vital signs have been relatively reassuring. A fever had not been measured. Blood pressure was adequate. Patient was not in any respiratory distress and was breathing less than or equal to 20 breaths/min. She was not tachycardic. She appeared weak and slightly toxic however. Patient has a history of metastatic lung cancer status post lobectomy on the right lower, with metastatic disease to the contralateral lung and to the brain. She is no longer receiving treatment. Last chemotherapy infusion was a month and a half ago. Patient does not endorse any specific complaints other than feeling tired and rundown. She is sick of her cough which is causing some posttussive chest discomfort. She denies any chest pain, chest pressure or pleurisy. Denies fever currently. Feels shaky and cold. Denies any nausea/vomiting or abdominal complaints. Denies any difficulties with voiding. Chest x-ray notable for persistent right lower lobe effusion due to lobectomy. No otherwise dense infiltrates that are new. She has chronic interstitial changes as well as those associated with metastatic disease and chronic congestive heart failure. No overt change. Patient was given empiric antibiotics and then referred to the internal medicine service for admission. A 14 point review of systems was reviewed with the patient and her 2 daughters were present and only pertinent for the above information. CODE STATUS: Full code without prolonged measures. - Related Data Allergies/Adverse Reactions: Allergies Allergy/AdvReac Type Severity Reaction Status Date / Time codeine Allergy Swollen Verified 04/06/21 14:53 Tongue duloxetine [From Cymbalta] Allergy Difficulty Verified 04/06/21 14:53 Breathing hydrocodone Allergy Swollen Verified 04/06/21 14:53 Tongue sulfamethoxazole Allergy Swelling Verified 04/06/21 14:53 [From Bactrim] trimethoprim [From Bactrim] Allergy Swelling Verified 04/06/21 14:53 fentanyl AdvReac Chest Pain Verified 04/06/21 14:53 hydromorphone [From Dilaudid] AdvReac Chills Verified 04/06/21 14:53 Home Medications: Home Meds Levothyroxine 75 mcg PO DAILY 12/10/15 [History] Lisinopril 40 mg PO DAILY 12/10/15 [History] Latanoprost 1 drop EYEBOTH BEDTIME 10/20/16 [History] Psyllium Husk [Metamucil] 1 tsp PO BID 07/30/17 [History] traMADol [Ultram] 50 mg PO Q6H PRN 03/17/18 [History] Cholecalciferol (Vitamin D3) [Vitamin D3] 2,000 units PO DAILY 12/30/18 [History] Nitroglycerin [Nitrostat] 0.4 mg PO ASDIRECTED PRN 09/24/20 [History] Askov-3/DHA/Epa/Fish Oil [Askov 3 500 Softgel] 1,000 mg PO BEDTIME 09/24/20 [History] Ondansetron [Zofran] 4 mg SL Q6H PRN 09/24/20 [History] atorvaSTATin [Lipitor] 40 mg PO BEDTIME 09/24/20 [History] Folic Acid 1 mg PO DAILY 03/08/21 [History] Insulin Glarg,Human.Rec.Analog [Lantus] 13 unit SUBCUT DAILY 03/08/21 [History] Metoprolol Succinate [Toprol Xl] 100 mg PO DAILY 30 Days #30 tab 03/09/21 [Rx] Acetaminophen [Tylenol 8 Hour] 650 mg PO Q4HR PRN 03/23/21 [History] Apixaban [Eliquis] 5 mg PO BID #60 tablet 03/25/21 [Rx] Furosemide [Lasix] 40 mg PO DAILY #30 tablet 03/25/21 [Rx] Allopurinol [Zyloprim] 150 mg PO DAILY 04/06/21 [History] Colchicine 0.3 mg PO DAILY 04/06/21 [History] Prochlorperazine Maleate [Compazine] 10 mg PO QID PRN 04/06/21 [History] Sennosides [Senna] 2 tab PO BEDTIME 04/06/21 [History] bisacodyL [Dulcolax] 10 mg PO DAILY PRN 04/06/21 [History] Past Medical History HEENT History: Reports: Cataract, Glaucoma, Impaired Vision Other HEENT History: Wears glasses Cardiovascular History: Reports: Afib, High Cholesterol, Hypertension, Pacemaker Other Cardiovascular History: chest pain/pressure, edema Respiratory History: Reports: SOB Other Respiratory History: Lung Cancer, Pulmonary nodule, Dyspnea on exertion. Patient reports right lower lobe lobectomy she believes 8 years ago. Followed with postoperative radiation to the right lung field. Currently has left lower lobe lung cancer with recent CT done showing increased nodularity. Gastrointestinal History: Reports: None Genitourinary History: Reports: Chronic Renal Insuffiency Other Genitourinary History: Contrast dye induced nephropathy, Microalbuminuria [employer] History: Reports: Musculoskeletal History: Reports: Arthritis, Back Pain, Chronic, Fibromyalgia, Gout, Osteoarthritis, Osteoporosis Neurological History: Reports: None Endocrine/Metabolic History: Reports: Diabetes, Type II, Hypothyroidism, Vitamin D Deficiency Other Endocrine/Metabolic History: DM II (diet controlled), goiter, thyroid nodule Hematologic History: Reports: Blood Transfusion(s) Oncologic (Cancer) History: Reports: Lung, Metastatic, Other (See Below) Other Oncologic History: Metastasis to brain- radiation treated - Infectious Disease History Infectious Disease History: Reports: Chicken Pox, Measles, Mumps, Novel Adeola navirus, Shingles Other Infectious Disease History: MRSA culture was negative Aug 2020 - cleared of MRSA. - Past Surgical History HEENT Surgical History: Reports: Cataract Surgery Cardiovascular Surgical History: Reports: Pacer Respiratory Surgical History: Reports: Thoracotomy Other Respiratory Surgeries/Procedures: Bronchoscopy,Thoracotomy with RLL lobectomy GI Surgical History: Reports: Appendectomy, Colonoscopy Female Surgical History: Reports: Hysterectomy, Salpingo-Oophorectomy Endocrine Surgical History: Reports: Thyroidectomy Neurological Surgical History: Reports: None Musculoskeletal Surgical History: Reports: Hip Replacement Other Musculoskeletal Surgeries/Procedures:: bilateral total hip replacement Oncologic Surgical History: Reports: Lobectomy, Other (See Below) Other Oncologic Surgeries/Procedures: lymph node biopsy Dermatological Surgical History: Reports: None Social & Family History - Family History Family Medical History: No Pertinent Family History - Tobacco Use Tobacco Use Status *Q: Never Tobacco User - Caffeine Use Caffeine Use: Reports: None Other Caffeine Use: every once in awhile - Recreational Drug Use Recreational Drug Use: No - Living Situation & Occupation Living situation: Reports: , with Spouse, Extended Care Facility (Currently a resident of [facility] since discharge from hospital March 25.) Occupation: Retired H&P Review of Systems - Review of Systems: Review Of Systems: Comprehensive ROS is negative, except as noted in HPI. Exam - Exam Exam: See Below - Vital Signs Vital Signs: Last Vital Signs Temp 97.2 F 04/06/21 10:51 Pulse 67 04/06/21 10:19 Resp 26 H 04/06/21 10:19 BP 150/64 H 04/06/21 10:19 Pulse Ox 93 L 04/06/21 11:13 Weight: 174 lb 4.8 oz - Exam Physical Exam Comments:: General: Awake and alert, in no apparent distress. Mildly toxic appearing and tired. HEENT: Normocephalic, atraumatic. Extra ocular muscles intact. Pupils equal and reactive to light. Nares are patent. Oropharynx clear without erythema or exudate. Tongue is midline. Neck: Supple without lymphadenopathy. No goiter. Trachea midline. Heart: S1 and S2 heard without murmur or extrasystoles. Lungs: Cough without production in the emergency department. Decreased breath sounds at the bases with occasional rales heard. No wheezing or rhonchi. Abdomen: Soft, nontender, nondistended. Positive bowel sounds. No CVA tenderness. No suprapubic tenderness. Extremities: Warm and perfused. No clubbing, cyanosis, or edema. Integument: No obvious rash or jaundice. No lymphadenopathy. Neurologic: Cranial nerves II through XII grossly intact. No obvious gross motor or sensory deficits. Psychiatric: Normal mood and affect. - Patient Data Lab Results Last 24 hrs: Laboratory Results - last 24 hr 04/06/21 04/06/21 04/06/21 Range/Units 10:53 10:53 10:53 WBC 9.57 (3.98-10.04) K/mm3 RBC 2.18 L (3.98-5.22) M/mm3 Hgb 8.0 L (11.2-15.7) gm/dl Hct 25.1 L (34.1-44.9) % MCV 115.1 H D (79.4-94.8) fl MCH 36.7 H (25.6-32.2) pg MCHC 31.9 L (32.2-35.5) g/dl RDW Std Deviation 82.9 H (36.4-46.3) fL Plt Count 209 D (182-369) K/mm3 MPV 10.6 (9.4-12.3) fl Neut % (Auto) 77.4 H (34.0-71.1) % Lymph % (Auto) 7.5 L (19.3-51.7) % Coal % (Auto) 14.6 H (4.7-12.5) % Eos % (Auto) 0 L (0.7-5.8) Baso % (Auto) 0.1 (0.1-1.2) % Neut # (Auto) 7.40 H (1.56-6.13) K/mm3 Lymph # (Auto) 0.72 L (1.18-3.74) K/mm3 Coal # (Auto) 1.40 H (0.24-0.36) K/mm3 Eos # (Auto) 0.00 L (0.04-0.36) K/mm3 Baso # (Auto) 0.01 (0.01-0.08) K/mm3 Manual Slide Review Abnormal smear ESR (0-20) mm/hr PT 11.6 (9.7-12.0) SECONDS INR 1.09 APTT (21.7-31.4) SECONDS Sodium 139 (136-145) mEq/L Potassium 3.5 (3.5-5.1) mEq/L Chloride 101 (98-107) mEq/L Carbon Dioxide 31 (21-32) mEq/L Anion Gap 10.5 (5-15) BUN 30 H (7-18) mg/dL Creatinine 1.6 H (0.55-1.02) mg/dL Est Cr Clr Drug Dosing 22.60 mL/min Estimated GFR (MDRD) 31 (>60) mL/min BUN/Creatinine Ratio 18.8 H (14-18) Glucose 157 H (70-99) mg/dL Lactic Acid (0.4-2.0) mmol/L Uric Acid 6.4 H (2.6-6.0) mg/dL Calcium 8.7 (8.5-10.1) mg/dL Magnesium 1.6 L (1.8-2.4) mg/dL Total Bilirubin 0.8 (0.2-1.0) mg/dL AST 27 (15-37) U/L ALT 43 (14-59) U/L Alkaline Phosphatase 70 (46-116) U/L Troponin I 0.029 (0.00-0.056) ng/mL C-Reactive Protein 4.1 H* (<1.0) mg/dL NT-Pro-B Natriuret Pep (0-450) pg/mL Total Protein 6.4 (6.4-8.2) g/dl Albumin 2.8 L (3.4-5.0) g/dl Globulin 3.6 gm/dL Albumin/Globulin Ratio 0.8 L (1-2) Urine Color (Yellow) Urine Appearance (Clear) Urine pH (5.0-8.0) Ur Specific [place] (1.005-1.030) Urine Protein (Negative) Urine Glucose (UA) (Negative) Urine Ketones (Negative) Urine Occult Blood (Negative) Urine Nitrite (Negative) Urine Bilirubin (Negative) Urine Urobilinogen (0.2-1.0) Ur Leukocyte Esterase (Negative) Urine RBC (0-5) /hpf Urine WBC (0-5) /hpf Ur Epithelial Cells (0-5) /hpf Urine Bacteria (FEW) /hpf Urine Mucus (FEW) /hpf SARS-CoV-2 RNA (CATIE) (NEGATIVE) 04/06/21 04/06/21 04/06/21 Range/Units 10:53 10:53 10:53 WBC (3.98-10.04) K/mm3 RBC (3.98-5.22) M/mm3 Hgb (11.2-15.7) gm/dl Hct (34.1-44.9) % MCV (79.4-94.8) fl MCH (25.6-32.2) pg MCHC (32.2-35.5) g/dl RDW Std Deviation (36.4-46.3) fL Plt Count (182-369) K/mm3 MPV (9.4-12.3) fl Neut % (Auto) (34.0-71.1) % Lymph % (Auto) (19.3-51.7) % Coal % (Auto) (4.7-12.5) % Eos % (Auto) (0.7-5.8) Baso % (Auto) (0.1-1.2) % Neut # (Auto) (1.56-6.13) K/mm3 Lymph # (Auto) (1.18-3.74) K/mm3 Coal # (Auto) (0.24-0.36) K/mm3 Eos # (Auto) (0.04-0.36) K/mm3 Baso # (Auto) (0.01-0.08) K/mm3 Manual Slide Review ESR (0-20) mm/hr PT (9.7-12.0) SECONDS INR APTT 35.4 H (21.7-31.4) SECONDS Sodium (136-145) mEq/L Potassium (3.5-5.1) mEq/L Chloride (98-107) mEq/L Carbon Dioxide (21-32) mEq/L Anion Gap (5-15) BUN (7-18) mg/dL Creatinine (0.55-1.02) mg/dL Est Cr Clr Drug Dosing mL/min Estimated GFR (MDRD) (>60) mL/min BUN/Creatinine Ratio (14-18) Glucose (70-99) mg/dL Lactic Acid 1.1 (0.4-2.0) mmol/L Uric Acid (2.6-6.0) mg/dL Calcium (8.5-10.1) mg/dL Magnesium (1.8-2.4) mg/dL Total Bilirubin (0.2-1.0) mg/dL AST (15-37) U/L ALT (14-59) U/L Alkaline Phosphatase (46-116) U/L Troponin I (0.00-0.056) ng/mL C-Reactive Protein (<1.0) mg/dL NT-Pro-B Natriuret Pep 5068 H (0-450) pg/mL Total Protein (6.4-8.2) g/dl Albumin (3.4-5.0) g/dl Globulin gm/dL Albumin/Globulin Ratio (1-2) Urine Color (Yellow) Urine Appearance (Clear) Urine pH (5.0-8.0) Ur Specific [place] (1.005-1.030) Urine Protein (Negative) Urine Glucose (UA) (Negative) Urine Ketones (Negative) Urine Occult Blood (Negative) Urine Nitrite (Negative) Urine Bilirubin (Negative) Urine Urobilinogen (0.2-1.0) Ur Leukocyte Esterase (Negative) Urine RBC (0-5) /hpf Urine WBC (0-5) /hpf Ur Epithelial Cells (0-5) /hpf Urine Bacteria (FEW) /hpf Urine Mucus (FEW) /hpf SARS-CoV-2 RNA (CATIE) (NEGATIVE) 04/06/21 04/06/21 04/06/21 Range/Units 11:04 11:30 12:50 WBC (3.98-10.04) K/mm3 RBC (3.98-5.22) M/mm3 Hgb (11.2-15.7) gm/dl Hct (34.1-44.9) % MCV (79.4-94.8) fl MCH (25.6-32.2) pg MCHC (32.2-35.5) g/dl RDW Std Deviation (36.4-46.3) fL Plt Count (182-369) K/mm3 MPV (9.4-12.3) fl Neut % (Auto) (34.0-71.1) % Lymph % (Auto) (19.3-51.7) % Coal % (Auto) (4.7-12.5) % Eos % (Auto) (0.7-5.8) Baso % (Auto) (0.1-1.2) % Neut # (Auto) (1.56-6.13) K/mm3 Lymph # (Auto) (1.18-3.74) K/mm3 Coal # (Auto) (0.24-0.36) K/mm3 Eos # (Auto) (0.04-0.36) K/mm3 Baso # (Auto) (0.01-0.08) K/mm3 Manual Slide Review ESR 77 H (0-20) mm/hr PT (9.7-12.0) SECONDS INR APTT (21.7-31.4) SECONDS Sodium (136-145) mEq/L Potassium (3.5-5.1) mEq/L Chloride (98-107) mEq/L Carbon Dioxide (21-32) mEq/L Anion Gap (5-15) BUN (7-18) mg/dL Creatinine (0.55-1.02) mg/dL Est Cr Clr Drug Dosing mL/min Estimated GFR (MDRD) (>60) mL/min BUN/Creatinine Ratio (14-18) Glucose (70-99) mg/dL Lactic Acid (0.4-2.0) mmol/L Uric Acid (2.6-6.0) mg/dL Calcium (8.5-10.1) mg/dL Magnesium (1.8-2.4) mg/dL Total Bilirubin (0.2-1.0) mg/dL AST (15-37) U/L ALT (14-59) U/L Alkaline Phosphatase (46-116) U/L Troponin I (0.00-0.056) ng/mL C-Reactive Protein (<1.0) mg/dL NT-Pro-B Natriuret Pep (0-450) pg/mL Total Protein (6.4-8.2) g/dl Albumin (3.4-5.0) g/dl Globulin gm/dL Albumin/Globulin Ratio (1-2) Urine Color Yellow (Yellow) Urine Appearance Slt cloudy H (Clear) Urine pH 6.5 (5.0-8.0) Ur Specific [place] 1.015 (1.005-1.030) Urine Protein Negative (Negative) Urine Glucose (UA) Negative (Negative) Urine Ketones Negative (Negative) Urine Occult Blood Negative (Negative) Urine Nitrite Negative (Negative) Urine Bilirubin Negative (Negative) Urine Urobilinogen 0.2 (0.2-1.0) Ur Leukocyte Esterase Negative (Negative) Urine RBC 0-5 (0-5) /hpf Urine WBC 0-5 (0-5) /hpf Ur Epithelial Cells 5-10 H (0-5) /hpf Urine Bacteria Few (FEW) /hpf Urine Mucus Not seen (FEW) /hpf SARS-CoV-2 RNA (CATIE) Negative (NEGATIVE) Result Diagrams: 04/06/21 10:53 04/06/21 10:53 Tod Results Last 24 hrs: Chest x-ray personally reviewed. Formal reading pending. Chronic interstitial changes consistent with metastatic disease, congestive heart failure. Right lower lobe effusion consistent with previous right lower lobectomy. No new developments of dense infiltrates. Sepsis Event Note - Evaluation Sepsis Screening Result: No Definite Risk - Focused Exam Vital Signs: Vital Signs Temp Temp Pulse Resp BP Pulse Ox Pulse Ox 04/06/21 11:13 93 L 04/06/21 10:51 97.2 F 04/06/21 10:19 97.2 F 67 26 H 150/64 H 93 L Problem List Initiated/Reviewed/Updated: Yes Orders Last 24hrs: Active Orders 24 hr Category Date Time Status Patient Status [ADT] Routine ADT 04/06/21 13:05 Active Intake and Output [RC] 04,16 Care 04/06/21 13:06 Active Oxygen Therapy [RC] PRN Care 04/06/21 13:05 Active Pulse Oximetry [RC] PRN Care 04/06/21 13:06 Active RT Aerosol Therapy [RC] ASDIRECTED Care 04/06/21 10:52 Active RT Aerosol Therapy [RC] ASDIRECTED Care 04/06/21 13:14 Active Up With Assistance [RC] ASDIRECTED Care 04/06/21 13:05 Active VTE/DVT Education [RC] PER UNIT ROUTINE Care 04/06/21 13:13 Active Vital Signs [RC] Q4HR Care 04/06/21 13:05 Active OT Evaluation and Treatment [CONS] Routine Cons 04/06/21 13:07 Active PT Evaluation and Treatment [CONS] Routine Cons 04/06/21 13:07 Active ADA Diabetic [[employer] Diabetic [employer] Diet] [DIET Diet 04/06/21 Dinner Active ] Chest 1V Frontal [CR] Stat Exams 04/06/21 10:27 Taken BASIC METABOLIC PANEL,BMP [CHEM] DAILY Lab 04/07/21 06:00 Ordered BASIC METABOLIC PANEL,BMP [CHEM] DAILY Lab 04/08/21 06:00 Ordered BASIC METABOLIC PANEL,BMP [CHEM] DAILY Lab 04/09/21 06:00 Ordered BASIC METABOLIC PANEL,BMP [CHEM] DAILY Lab 04/10/21 06:00 Ordered BASIC METABOLIC PANEL,BMP [CHEM] DAILY Lab 04/11/21 06:00 Ordered CBC WITH AUTO DIFF [HEME] DAILY Lab 04/07/21 06:00 Ordered CBC WITH AUTO DIFF [HEME] DAILY Lab 04/08/21 06:00 Ordered CBC WITH AUTO DIFF [HEME] DAILY Lab 04/09/21 06:00 Ordered CBC WITH AUTO DIFF [HEME] DAILY Lab 04/10/21 06:00 Ordered CBC WITH AUTO DIFF [HEME] DAILY Lab 04/11/21 06:00 Ordered CULTURE BLOOD [BC] Stat Lab 04/06/21 10:53 Received CULTURE BLOOD [BC] Stat Lab 04/06/21 11:04 Received METH-RESIST S.AUR,MRSA BY PCR [MOLEC] Stat Lab 04/06/21 15:10 Received VANCOMYCIN TROUGH [CHEM] Timed Lab 04/09/21 13:30 Ordered Acetaminophen [TylenoL] Med 04/06/21 13:10 Active 650 mg PO Q4H PRN Albuterol/Ipratropium [DuoNeb 3.0-0.5 MG/3 ML] Med 04/06/21 10:51 Active 3 ml NEB Q4H PRN Albuterol/Ipratropium [DuoNeb 3.0-0.5 MG/3 ML] Med 04/06/21 13:13 Active 3 ml NEB Q4H PRN Apixaban [Eliquis] Med 04/06/21 21:00 Active 2.5 mg PO BID Cefepime [Maxipime] 1 gm Med 04/06/21 21:00 Active Sodium Chloride 0.9% [Normal Saline] 50 ml IV Q24H Cholecalciferol (Vitamin D3) [Vitamin D3] Med 04/07/21 09:00 Active 50 mcg PO DAILY Colchicine [Colcrys] Med 04/06/21 13:10 Active 0.3 mg PO DAILY PRN Folic Acid Med 04/07/21 09:00 Active 1 mg PO DAILY Furosemide [Lasix] Med 04/07/21 09:00 Active 40 mg PO DAILY Insulin Glarg,Human.Rec.Analog [LantUS] Med 04/07/21 09:00 Active 13 unit SUBCUT DAILY Latanoprost [Xalatan 0.005% Ophth Soln] Med 04/06/21 21:00 Active 0 ml EYEBOTH BEDTIME Levothyroxine Med 04/07/21 06:00 Active 75 mcg PO ACBREAKFAST Metoprolol Succinate [Toprol XL] Med 04/07/21 09:00 Active 100 mg PO DAILY Nitroglycerin [Nitrostat] Med 04/06/21 13:10 Active 0.4 mg SL ASDIRECTED PRN Pharmacy to Dose - Vancomycin Med 04/06/21 13:15 Pending 1 dose .XX ASDIRECTED Psyllium Husk/Aspartame [Metamucil Sugar Free] Med 04/06/21 21:00 Active 1 pkt PO BID Sennosides [Senna] Med 04/07/21 09:00 Active 17.2 mg PO DAILY Sodium Chloride 0.9% [Normal Saline] 1,000 ml Med 04/06/21 10:30 Active IV ASDIRECTED Vancomycin [Vancocin] 1 gm Med 04/06/21 14:00 Active Sodium Chloride 0.9% [Normal Saline (AdvBag)] 250 ml IV Q24H allopurinoL [Zyloprim] Med 04/07/21 09:00 Active 150 mg PO DAILY atorvaSTATin [Lipitor] Med 04/06/21 21:00 Active 40 mg PO BEDTIME bisacodyL [Dulcolax] Med 04/06/21 13:10 Active 10 mg PO DAILY PRN lisinopriL [Prinivil] Med 04/07/21 09:00 Active 40 mg PO DAILY traMADol [Ultram] Med 04/06/21 13:10 Active 50 mg PO Q6H PRN Blood Culture x2 Reflex Set [OM.PC] Stat Oth 04/06/21 10:28 Ordered Resuscitation Status Routine Resus Stat 04/06/21 13:05 Ordered Medication Orders Acetaminophen (Acetaminophen 325 Mg Tab) 650 mg PO Q4H PRN PRN Reason: Pain Albuterol/Ipratropium (Albuterol/Ipratropium 3.0-0.5 Mg/3 Ml Neb Soln) 3 ml NEB Q4H PRN PRN Reason: Shortness Of Breath/wheezing Last Admin: 04/06/21 11:11 Dose: 3 ml Documented by: HUANG Albuterol/Ipratropium (Albuterol/Ipratropium 3.0-0.5 Mg/3 Ml Neb Soln) 3 ml NEB Q4H PRN PRN Reason: Shortness Of Breath/wheezing Allopurinol (Allopurinol 300 Mg Tab) 150 mg PO DAILY [facility] Apixaban (Apixaban 2.5 Mg Tab) 2.5 mg PO BID [facility] Atorvastatin Calcium (Atorvastatin 40 Mg Tab) 40 mg PO BEDTIME [facility] Bisacodyl (Bisacodyl 5 Mg Tab) 10 mg PO DAILY PRN PRN Reason: Constipation Cholecalciferol (Cholecalciferol (Vitamin D3) 25 Mcg Tab) 50 mcg PO DAILY [facility] Colchicine (Colchicine 0.6 Mg Tab) 0.3 mg PO DAILY PRN PRN Reason: Other Folic Acid (Folic Acid 1 Mg Tab) 1 mg PO DAILY [facility] Furosemide (Furosemide 40 Mg Tab) 40 mg PO DAILY [facility] Sodium Chloride (Normal Saline) 1,000 mls @ 75 mls/hr IV ASDIRECTED [facility] Last Admin: 04/06/21 14:48 Dose: 75 mls/hr Documented by: Infusion: 04/06/21 14:48 Dose: 75 mls/hr Documented by: Admin: 04/06/21 10:51 Dose: 75 mls/hr Documented by: JANE Cefepime HCl 1 gm/ Sodium (Chloride) 50 mls @ 100 mls/hr IV Q24H [facility] Vancomycin HCl 1 gm/ Sodium (Chloride) 250 mls @ 250 mls/hr IV Q24H [facility] Last Admin: 04/06/21 14:47 Dose: 250 mls/hr Documented by: NORMA Insulin Glargine (Insulin Glarg,Human.Rec.Analog 100 Unit/Ml) 13 unit SUBCUT DAILY [facility] Latanoprost (Latanoprost 0.005% Ophth Soln 2.5 Ml Bottle) 0 ml EYEBOTH BEDTIME [facility] Levothyroxine Sodium (Levothyroxine 75 Mcg Tab) 75 mcg PO ACBREAKFAST [facility] Lisinopril (Lisinopril 20 Mg Tab) 40 mg PO DAILY [facility] Metoprolol Succinate (Metoprolol Succinate 50 Mg Tab.Er) 100 mg PO DAILY [facility] Nitroglycerin (Nitroglycerin 0.4 Mg Tab.Sl) 0.4 mg SL ASDIRECTED PRN PRN Reason: Chest Pain Psyllium Husk (Psyllium Husk Powder Sugar Free 5.85 Gm Packet) 1 pkt PO BID [facility] Senna (Sennosides 8.6 Mg Tab) 17.2 mg PO DAILY [facility] Tramadol HCl (Tramadol 50 Mg Tab) 50 mg PO Q6H PRN PRN Reason: Pain Last Admin: 04/06/21 14:51 Dose: 50 mg Documented by: NORMA Vancomycin HCl (Pharmacy To Dose - Vancomycin) 1 dose .XX ASDIRECTED [facility] Assessment/Plan Comment:: 85-year-old female with a past medical history as listed above who presented to the [facility] emergency department with subjective history of fever, rigors and cough starting within the past 36 hours. 1. Subjective fever with possible developing bronchitis and/or pneumonia. Will admit to the hospitalist service for further observation and management. Vitals and examination otherwise reassuring. Labs also reassuring at this time. Continue empiric antibiotics with cefepime and vancomycin for now as she was recently admitted to the hospital for congestive heart failure in late February. We will do a MRSA swab. If negative will downgrade antibiotics. Monitor volume status. Sputum sample for culture and sensitivities. Blood cultures pending as well. 2. Atrial fibrillation on systemic anticoagulation. We will downgrade her Eliquis dose to 2.5 mg twice daily considering she is less than 60 kg in weight and is greater than 80 years old. Continue home cardiac medications at regular dose otherwise. 3. History of metastatic lung cancer with spread of disease to contralateral lung and brain. No longer receiving therapy. Follow with PCP regarding further plans as well as oncology. 4. Type 2 diabetes mellitus. Patient still carbohydrate counts. We will place her on the an ADA diet as she still treats her self. May eat a regular diet otherwise if she really wants to. Continue home insulin regimen. Invoke hospital hyperglycemia protocol if necessary. 5. Hypothyroidism. Continue daily synthetic hormone replacement. 6. History of chronic congestive heart failure; otherwise unspecified as ejection fraction unknown. Monitor volume status. Continue cardiac maintenance therapies. 7. History of gout. Continue maintenance therapy with colchicine. 8. History of coronary artery disease. Continue statin and all home cardiac medications at regular dose. Nitroglycerin as needed for chest pain. 9. History of hypertension. Continue home cardiac medications at regular dose. 10. CKD stage III. Avoid nephrotoxins. Intermittent check of labs. Replace electrolytes as necessary. CODE STATUS: Reviewed and she wishes to be full code with no prolonged measures. DVT prophylaxis; on systemic anticoagulation with Eliquis.
--- NOTE | 2021-04-06 17:00 | CR ---
Chest: Portable view of the chest was obtained. Comparison: Prior chest x-ray of 03/23/21. Lung markings are increased on both sides of the chest. Focal nodular density is seen within the right upper lung which is fairly similar to most recent exams. Lung markings are similar to previous study of 03/08/21 and improved from most recent exam of 03/23/21. Right hemidiaphragm is elevated which is stable. Pacemaker is noted. Right-sided infusion port is seen. No acute osseous abnormality is appreciated. Impression: 1. Increased lung markings on both sides of the chest which are similar to prior study of 03/08/21. Findings are improved from 03/23/21. 2. Stable nodular density within the right upper chest similar to most recent exams. 3. Other findings as noted above believed to be chronic. Diagnostic code #3
[2021-04-06] MEDS ORDERED: Apixaban 5 MG Tab PO SCH (21:00)
[2021-04-06] MEDS: Cefepime 1 GM in Sodium Chloride 0.9% 50 ML IV SCH (21:50)
[2021-04-06] MEDS: atorvaSTATin 40 MG Tab PO SCH (21:50)
[2021-04-06] MEDS: Apixaban 2.5 MG Tab PO SCH (21:50)
[2021-04-06] MEDS: Psyllium Husk Powder Sugar Free 5.85 GM Packet PO SCH (21:51)
[2021-04-06] MEDS: Latanoprost 0.005% Ophth Soln 2.5 ML Bottle EYEBOTH SCH (21:51)
[2021-04-07] MEDS: traMADol 50 MG Tab PO PRN ×2 (04:42→17:28)
[2021-04-07] MEDS: Levothyroxine 75 MCG Tab PO SCH ×2 (04:42→05:21)
[2021-04-07] MEDS: Sodium Chloride 0.9% 1,000 ML IV SCH (04:49)
--- NOTE | 2021-04-07 07:33 | PCM.PN ---
<Mihir Amador - Last Filed: 04/07/21 11:52> - General Info Date of Service: 04/07/21 Admission Dx/Problem (Free Text): Admission Diagnosis/Problem Admission Diagnosis/Problem Fever in adult Functional Status: Reports: Pain Controlled, Tolerating Diet, Ambulating, Urinating, Incentive Spirometry, Other (Acapella ). Denies: New Symptoms - Review of Systems General: Reports: Weakness. Denies: Fever, Fatigue, Malaise, Chills HEENT: Reports: No Symptoms. Denies: Headaches, Sore Throat Pulmonary: Reports: Shortness of Breath, Pleuritic Chest Pain, Cough, Sputum. Denies: Wheezing Cardiovascular: Reports: Dyspnea on Exertion, Edema. Denies: Chest Pain, Palpitations Gastrointestinal: Reports: No Symptoms. Denies: Abdominal Pain, Constipation, Diarrhea, Nausea, Vomiting Genitourinary: Reports: No Symptoms Musculoskeletal: Reports: No Symptoms Skin: Reports: No Symptoms. Denies: Cyanosis Neurological: Reports: Pre-Existing Deficit (Utilizes a walker ), Difficulty Walking. Denies: Confusion, Dizziness, Headache, Numbness, Tingling Psychiatric: Reports: No Symptoms - Patient Data Vitals - Most Recent: Last Vital Signs Temp 98.1 F 04/07/21 04:43 Pulse 63 04/07/21 04:43 Resp 20 04/07/21 04:43 BP 136/57 L 04/07/21 04:43 Pulse Ox 93 L 04/07/21 04:43 Weight - Most Recent: 174 lb 4.8 oz I&O - Last 24 Hours: Intake & Output 04/06/21 04/07/21 04/07/21 22:59 06:59 14:59 Intake Total 670 1750 Output Total 1000 960 Balance -330 790 Lab Results Last 24 Hours: Laboratory Results - last 24 hr 04/06/21 04/06/21 04/06/21 Range/Units 10:53 10:53 10:53 WBC 9.57 (3.98-10.04) K/mm3 RBC 2.18 L (3.98-5.22) M/mm3 Hgb 8.0 L (11.2-15.7) gm/dl Hct 25.1 L (34.1-44.9) % MCV 115.1 H D (79.4-94.8) fl MCH 36.7 H (25.6-32.2) pg MCHC 31.9 L (32.2-35.5) g/dl RDW Std Deviation 82.9 H (36.4-46.3) fL Plt Count 209 D (182-369) K/mm3 MPV 10.6 (9.4-12.3) fl Neut % (Auto) 77.4 H (34.0-71.1) % Lymph % (Auto) 7.5 L (19.3-51.7) % [place] % (Auto) 14.6 H (4.7-12.5) % Eos % (Auto) 0 L (0.7-5.8) Baso % (Auto) 0.1 (0.1-1.2) % Neut # (Auto) 7.40 H (1.56-6.13) K/mm3 Lymph # (Auto) 0.72 L (1.18-3.74) K/mm3 [place] # (Auto) 1.40 H (0.24-0.36) K/mm3 Eos # (Auto) 0.00 L (0.04-0.36) K/mm3 Baso # (Auto) 0.01 (0.01-0.08) K/mm3 Manual Slide Review Abnormal smear ESR (0-20) mm/hr PT 11.6 (9.7-12.0) SECONDS INR 1.09 APTT (21.7-31.4) SECONDS Sodium 139 (136-145) mEq/L Potassium 3.5 (3.5-5.1) mEq/L Chloride 101 (98-107) mEq/L Carbon Dioxide 31 (21-32) mEq/L Anion Gap 10.5 (5-15) BUN 30 H (7-18) mg/dL Creatinine 1.6 H (0.55-1.02) mg/dL Est Cr Clr Drug Dosing 22.60 mL/min Estimated GFR (MDRD) 31 (>60) mL/min BUN/Creatinine Ratio 18.8 H (14-18) Glucose 157 H (70-99) mg/dL Lactic Acid (0.4-2.0) mmol/L Uric Acid 6.4 H (2.6-6.0) mg/dL Calcium 8.7 (8.5-10.1) mg/dL Magnesium 1.6 L (1.8-2.4) mg/dL Total Bilirubin 0.8 (0.2-1.0) mg/dL AST 27 (15-37) U/L ALT 43 (14-59) U/L Alkaline Phosphatase 70 (46-116) U/L Troponin I 0.029 (0.00-0.056) ng/mL C-Reactive Protein 4.1 H* (<1.0) mg/dL NT-Pro-B Natriuret Pep (0-450) pg/mL Total Protein 6.4 (6.4-8.2) g/dl Albumin 2.8 L (3.4-5.0) g/dl Globulin 3.6 gm/dL Albumin/Globulin Ratio 0.8 L (1-2) Urine Color (Yellow) Urine Appearance (Clear) Urine pH (5.0-8.0) Ur Specific [place] (1.005-1.030) Urine Protein (Negative) Urine Glucose (UA) (Negative) Urine Ketones (Negative) Urine Occult Blood (Negative) Urine Nitrite (Negative) Urine Bilirubin (Negative) Urine Urobilinogen (0.2-1.0) Ur Leukocyte Esterase (Negative) Urine RBC (0-5) /hpf Urine WBC (0-5) /hpf Ur Epithelial Cells (0-5) /hpf Urine Bacteria (FEW) /hpf Urine Mucus (FEW) /hpf SARS-CoV-2 RNA (CATIE) (NEGATIVE) MRSA (PCR) 04/06/21 04/06/21 04/06/21 Range/Units 10:53 10:53 10:53 WBC (3.98-10.04) K/mm3 RBC (3.98-5.22) M/mm3 Hgb (11.2-15.7) gm/dl Hct (34.1-44.9) % MCV (79.4-94.8) fl MCH (25.6-32.2) pg MCHC (32.2-35.5) g/dl RDW Std Deviation (36.4-46.3) fL Plt Count (182-369) K/mm3 MPV (9.4-12.3) fl Neut % (Auto) (34.0-71.1) % Lymph % (Auto) (19.3-51.7) % [place] % (Auto) (4.7-12.5) % Eos % (Auto) (0.7-5.8) Baso % (Auto) (0.1-1.2) % Neut # (Auto) (1.56-6.13) K/mm3 Lymph # (Auto) (1.18-3.74) K/mm3 [place] # (Auto) (0.24-0.36) K/mm3 Eos # (Auto) (0.04-0.36) K/mm3 Baso # (Auto) (0.01-0.08) K/mm3 Manual Slide Review ESR (0-20) mm/hr PT (9.7-12.0) SECONDS INR APTT 35.4 H (21.7-31.4) SECONDS Sodium (136-145) mEq/L Potassium (3.5-5.1) mEq/L Chloride (98-107) mEq/L Carbon Dioxide (21-32) mEq/L Anion Gap (5-15) BUN (7-18) mg/dL Creatinine (0.55-1.02) mg/dL Est Cr Clr Drug Dosing mL/min Estimated GFR (MDRD) (>60) mL/min BUN/Creatinine Ratio (14-18) Glucose (70-99) mg/dL Lactic Acid 1.1 (0.4-2.0) mmol/L Uric Acid (2.6-6.0) mg/dL Calcium (8.5-10.1) mg/dL Magnesium (1.8-2.4) mg/dL Total Bilirubin (0.2-1.0) mg/dL AST (15-37) U/L ALT (14-59) U/L Alkaline Phosphatase (46-116) U/L Troponin I (0.00-0.056) ng/mL C-Reactive Protein (<1.0) mg/dL NT-Pro-B Natriuret Pep 5068 H (0-450) pg/mL Total Protein (6.4-8.2) g/dl Albumin (3.4-5.0) g/dl Globulin gm/dL Albumin/Globulin Ratio (1-2) Urine Color (Yellow) Urine Appearance (Clear) Urine pH (5.0-8.0) Ur Specific [place] (1.005-1.030) Urine Protein (Negative) Urine Glucose (UA) (Negative) Urine Ketones (Negative) Urine Occult Blood (Negative) Urine Nitrite (Negative) Urine Bilirubin (Negative) Urine Urobilinogen (0.2-1.0) Ur Leukocyte Esterase (Negative) Urine RBC (0-5) /hpf Urine WBC (0-5) /hpf Ur Epithelial Cells (0-5) /hpf Urine Bacteria (FEW) /hpf Urine Mucus (FEW) /hpf SARS-CoV-2 RNA (CATIE) (NEGATIVE) MRSA (PCR) 04/06/21 04/06/21 04/06/21 Range/Units 11:04 11:30 12:50 WBC (3.98-10.04) K/mm3 RBC (3.98-5.22) M/mm3 Hgb (11.2-15.7) gm/dl Hct (34.1-44.9) % MCV (79.4-94.8) fl MCH (25.6-32.2) pg MCHC (32.2-35.5) g/dl RDW Std Deviation (36.4-46.3) fL Plt Count (182-369) K/mm3 MPV (9.4-12.3) fl Neut % (Auto) (34.0-71.1) % Lymph % (Auto) (19.3-51.7) % [place] % (Auto) (4.7-12.5) % Eos % (Auto) (0.7-5.8) Baso % (Auto) (0.1-1.2) % Neut # (Auto) (1.56-6.13) K/mm3 Lymph # (Auto) (1.18-3.74) K/mm3 [place] # (Auto) (0.24-0.36) K/mm3 Eos # (Auto) (0.04-0.36) K/mm3 Baso # (Auto) (0.01-0.08) K/mm3 Manual Slide Review ESR 77 H (0-20) mm/hr PT (9.7-12.0) SECONDS INR APTT (21.7-31.4) SECONDS Sodium (136-145) mEq/L Potassium (3.5-5.1) mEq/L Chloride (98-107) mEq/L Carbon Dioxide (21-32) mEq/L Anion Gap (5-15) BUN (7-18) mg/dL Creatinine (0.55-1.02) mg/dL Est Cr Clr Drug Dosing mL/min Estimated GFR (MDRD) (>60) mL/min BUN/Creatinine Ratio (14-18) Glucose (70-99) mg/dL Lactic Acid (0.4-2.0) mmol/L Uric Acid (2.6-6.0) mg/dL Calcium (8.5-10.1) mg/dL Magnesium (1.8-2.4) mg/dL Total Bilirubin (0.2-1.0) mg/dL AST (15-37) U/L ALT (14-59) U/L Alkaline Phosphatase (46-116) U/L Troponin I (0.00-0.056) ng/mL C-Reactive Protein (<1.0) mg/dL NT-Pro-B Natriuret Pep (0-450) pg/mL Total Protein (6.4-8.2) g/dl Albumin (3.4-5.0) g/dl Globulin gm/dL Albumin/Globulin Ratio (1-2) Urine Color Yellow (Yellow) Urine Appearance Slt cloudy H (Clear) Urine pH 6.5 (5.0-8.0) Ur Specific [place] 1.015 (1.005-1.030) Urine Protein Negative (Negative) Urine Glucose (UA) Negative (Negative) Urine Ketones Negative (Negative) Urine Occult Blood Negative (Negative) Urine Nitrite Negative (Negative) Urine Bilirubin Negative (Negative) Urine Urobilinogen 0.2 (0.2-1.0) Ur Leukocyte Esterase Negative (Negative) Urine RBC 0-5 (0-5) /hpf Urine WBC 0-5 (0-5) /hpf Ur Epithelial Cells 5-10 H (0-5) /hpf Urine Bacteria Few (FEW) /hpf Urine Mucus Not seen (FEW) /hpf SARS-CoV-2 RNA (CATIE) Negative (NEGATIVE) MRSA (PCR) 04/06/21 04/07/21 04/07/21 Range/Units 15:10 05:41 05:41 WBC 6.71 (3.98-10.04) K/mm3 RBC 2.07 L (3.98-5.22) M/mm3 Hgb 7.3 L* (11.2-15.7) gm/dl Hct 23.9 L (34.1-44.9) % MCV 115.5 H (79.4-94.8) fl MCH 35.3 H (25.6-32.2) pg MCHC 30.5 L (32.2-35.5) g/dl RDW Std Deviation 80.8 H (36.4-46.3) fL Plt Count 188 (182-369) K/mm3 MPV 10.6 (9.4-12.3) fl Neut % (Auto) 78.1 H (34.0-71.1) % Lymph % (Auto) 8.2 L (19.3-51.7) % [place] % (Auto) 13.1 H (4.7-12.5) % Eos % (Auto) 0.1 L (0.7-5.8) Baso % (Auto) 0.1 (0.1-1.2) % Neut # (Auto) 5.23 (1.56-6.13) K/mm3 Lymph # (Auto) 0.55 L (1.18-3.74) K/mm3 [place] # (Auto) 0.88 H (0.24-0.36) K/mm3 Eos # (Auto) 0.01 L (0.04-0.36) K/mm3 Baso # (Auto) 0.01 (0.01-0.08) K/mm3 Manual Slide Review ESR (0-20) mm/hr PT (9.7-12.0) SECONDS INR APTT (21.7-31.4) SECONDS Sodium 143 (136-145) mEq/L Potassium 3.2 L (3.5-5.1) mEq/L Chloride 104 (98-107) mEq/L Carbon Dioxide 30 (21-32) mEq/L Anion Gap 12.2 (5-15) BUN 20 H (7-18) mg/dL Creatinine 1.3 H (0.55-1.02) mg/dL Est Cr Clr Drug Dosing 27.82 mL/min Estimated GFR (MDRD) 39 (>60) mL/min BUN/Creatinine Ratio 15.4 (14-18) Glucose 112 H (70-99) mg/dL Lactic Acid (0.4-2.0) mmol/L Uric Acid (2.6-6.0) mg/dL Calcium 8.3 L (8.5-10.1) mg/dL Magnesium (1.8-2.4) mg/dL Total Bilirubin (0.2-1.0) mg/dL AST (15-37) U/L ALT (14-59) U/L Alkaline Phosphatase (46-116) U/L Troponin I (0.00-0.056) ng/mL C-Reactive Protein (<1.0) mg/dL NT-Pro-B Natriuret Pep (0-450) pg/mL Total Protein (6.4-8.2) g/dl Albumin (3.4-5.0) g/dl Globulin gm/dL Albumin/Globulin Ratio (1-2) Urine Color (Yellow) Urine Appearance (Clear) Urine pH (5.0-8.0) Ur Specific [place] (1.005-1.030) Urine Protein (Negative) Urine Glucose (UA) (Negative) Urine Ketones (Negative) Urine Occult Blood (Negative) Urine Nitrite (Negative) Urine Bilirubin (Negative) Urine Urobilinogen (0.2-1.0) Ur Leukocyte Esterase (Negative) Urine RBC (0-5) /hpf Urine WBC (0-5) /hpf Ur Epithelial Cells (0-5) /hpf Urine Bacteria (FEW) /hpf Urine Mucus (FEW) /hpf SARS-CoV-2 RNA (CATIE) (NEGATIVE) MRSA (PCR) Negative Med Orders - Current: Current Medications Acetaminophen (Acetaminophen 325 Mg Tab) 650 mg PO Q4H PRN PRN Reason: Pain Albuterol/Ipratropium (Albuterol/Ipratropium 3.0-0.5 Mg/3 Ml Neb Soln) 3 ml NEB Q4H PRN PRN Reason: Shortness Of Breath/wheezing Last Admin: 04/06/21 11:11 Dose: 3 ml Documented by: Albuterol/Ipratropium (Albuterol/Ipratropium 3.0-0.5 Mg/3 Ml Neb Soln) 3 ml NEB Q4H PRN PRN Reason: Shortness Of Breath/wheezing Allopurinol (Allopurinol 300 Mg Tab) 150 mg PO DAILY [facility] Apixaban (Apixaban 2.5 Mg Tab) 2.5 mg PO BID [facility] Last Admin: 04/06/21 21:50 Dose: 2.5 mg Documented by: Atorvastatin Calcium (Atorvastatin 40 Mg Tab) 40 mg PO BEDTIME [facility] Last Admin: 04/06/21 21:50 Dose: 40 mg Documented by: Bisacodyl (Bisacodyl 5 Mg Tab) 10 mg PO DAILY PRN PRN Reason: Constipation Cholecalciferol (Cholecalciferol (Vitamin D3) 25 Mcg Tab) 50 mcg PO DAILY [facility] Colchicine (Colchicine 0.6 Mg Tab) 0.3 mg PO DAILY PRN PRN Reason: Other Folic Acid (Folic Acid 1 Mg Tab) 1 mg PO DAILY [facility] Furosemide (Furosemide 40 Mg Tab) 40 mg PO DAILY [facility] Sodium Chloride (Normal Saline) 1,000 mls @ 75 mls/hr IV ASDIRECTED [facility] Last Admin: 04/07/21 04:49 Dose: 75 mls/hr Documented by: Cefepime HCl 1 gm/ Sodium (Chloride) 50 mls @ 100 mls/hr IV Q24H [facility] Last Admin: 04/06/21 21:50 Dose: 100 mls/hr Documented by: Vancomycin HCl 1 gm/ Sodium (Chloride) 250 mls @ 250 mls/hr IV Q24H [facility] Last Admin: 04/06/21 14:47 Dose: 250 mls/hr Documented by: Insulin Glargine (Insulin Glarg,Human.Rec.Analog 100 Unit/Ml) 13 unit SUBCUT DAILY [facility] Latanoprost (Latanoprost 0.005% Ophth Soln 2.5 Ml Bottle) 0 ml EYEBOTH BEDTIME [facility] Last Admin: 04/06/21 21:51 Dose: 1 drop Documented by: Levothyroxine Sodium (Levothyroxine 75 Mcg Tab) 75 mcg PO ACBREAKFAST [facility] Last Admin: 04/07/21 05:21 Dose: Not Given Documented by: Lisinopril (Lisinopril 20 Mg Tab) 40 mg PO DAILY [facility] Metoprolol Succinate (Metoprolol Succinate 50 Mg Tab.Er) 100 mg PO DAILY [facility] Nitroglycerin (Nitroglycerin 0.4 Mg Tab.Sl) 0.4 mg SL ASDIRECTED PRN PRN Reason: Chest Pain Psyllium Husk (Psyllium Husk Powder Sugar Free 5.85 Gm Packet) 1 pkt PO BID [facility] Last Admin: 04/06/21 21:51 Dose: 1 pkt Documented by: Senna (Sennosides 8.6 Mg Tab) 17.2 mg PO DAILY [facility] Tramadol HCl (Tramadol 50 Mg Tab) 50 mg PO Q6H PRN PRN Reason: Pain Last Admin: 04/07/21 04:42 Dose: 50 mg Documented by: Vancomycin HCl (Pharmacy To Dose - Vancomycin) 1 dose .XX ASDIRECTED [facility] Discontinued Medications Acetaminophen (Acetaminophen 325 Mg Tab) 650 mg PO ONETIME ONE Stop: 04/06/21 10:32 Last Admin: 04/06/21 10:51 Dose: 650 mg Documented by: Apixaban (Apixaban 5 Mg Tab) 5 mg PO BID [facility] Furosemide (Furosemide 40 Mg/4 Ml Vial) 60 mg IVPUSH NOW ONE Stop: 04/06/21 11:10 Last Admin: 04/06/21 12:22 Dose: 60 mg Documented by: Ceftriaxone Sodium 2 gm/ (Sodium Chloride) 100 mls @ 200 mls/hr IV ONETIME ONE Stop: 04/06/21 12:02 Last Admin: 04/06/21 12:23 Dose: 200 mls/hr Documented by: Metoclopramide HCl (Metoclopramide 10 Mg/2 Ml Sdv) 5 mg IVPUSH ONETIME ONE Stop: 04/06/21 10:32 Last Admin: 04/06/21 10:50 Dose: 5 mg Documented by: - Exam Quality Assessment: Supplemental Oxygen (3L [2L at baseline]), DVT Prophylaxis. No: Urine Catheter General: Alert, Oriented, Cooperative, No Acute Distress HEENT: Pupils Equal, Pupils Reactive, Mucous Membr. Moist/[place] Neck: Supple, Trachea Midline Lungs: Normal Respiratory Effort, Decreased Breath Sounds, Rales Cardiovascular: Regular Rate, Regular Rhythm GI/Abdominal Exam: Normal Bowel Sounds, Soft, Non-Tender, No Distention (Female) Exam: Deferred Back Exam: Normal Inspection, Decreased Range of Motion Extremities: Normal Inspection, Normal Range of Motion, Non-Tender, Normal Capillary Refill, Pedal Edema Skin: Warm, Dry, Intact Neurological: No New Focal Deficit Psy/Mental Status: Alert, Normal Affect, Normal Mood - Patient Data Lab Results Last 24 hrs: Laboratory Results - last 24 hr 04/06/21 04/06/21 04/06/21 Range/Units 10:53 10:53 10:53 WBC 9.57 (3.98-10.04) K/mm3 RBC 2.18 L (3.98-5.22) M/mm3 Hgb 8.0 L (11.2-15.7) gm/dl Hct 25.1 L (34.1-44.9) % MCV 115.1 H D (79.4-94.8) fl MCH 36.7 H (25.6-32.2) pg MCHC 31.9 L (32.2-35.5) g/dl RDW Std Deviation 82.9 H (36.4-46.3) fL Plt Count 209 D (182-369) K/mm3 MPV 10.6 (9.4-12.3) fl Neut % (Auto) 77.4 H (34.0-71.1) % Lymph % (Auto) 7.5 L (19.3-51.7) % [place] % (Auto) 14.6 H (4.7-12.5) % Eos % (Auto) 0 L (0.7-5.8) Baso % (Auto) 0.1 (0.1-1.2) % Neut # (Auto) 7.40 H (1.56-6.13) K/mm3 Lymph # (Auto) 0.72 L (1.18-3.74) K/mm3 [place] # (Auto) 1.40 H (0.24-0.36) K/mm3 Eos # (Auto) 0.00 L (0.04-0.36) K/mm3 Baso # (Auto) 0.01 (0.01-0.08) K/mm3 Manual Slide Review Abnormal smear ESR (0-20) mm/hr PT 11.6 (9.7-12.0) SECONDS INR 1.09 APTT (21.7-31.4) SECONDS Sodium 139 (136-145) mEq/L Potassium 3.5 (3.5-5.1) mEq/L Chloride 101 (98-107) mEq/L Carbon Dioxide 31 (21-32) mEq/L Anion Gap 10.5 (5-15) BUN 30 H (7-18) mg/dL Creatinine 1.6 H (0.55-1.02) mg/dL Est Cr Clr Drug Dosing 22.60 mL/min Estimated GFR (MDRD) 31 (>60) mL/min BUN/Creatinine Ratio 18.8 H (14-18) Glucose 157 H (70-99) mg/dL Lactic Acid (0.4-2.0) mmol/L Uric Acid 6.4 H (2.6-6.0) mg/dL Calcium 8.7 (8.5-10.1) mg/dL Magnesium 1.6 L (1.8-2.4) mg/dL Total Bilirubin 0.8 (0.2-1.0) mg/dL AST 27 (15-37) U/L ALT 43 (14-59) U/L Alkaline Phosphatase 70 (46-116) U/L Troponin I 0.029 (0.00-0.056) ng/mL C-Reactive Protein 4.1 H* (<1.0) mg/dL NT-Pro-B Natriuret Pep (0-450) pg/mL Total Protein 6.4 (6.4-8.2) g/dl Albumin 2.8 L (3.4-5.0) g/dl Globulin 3.6 gm/dL Albumin/Globulin Ratio 0.8 L (1-2) Urine Color (Yellow) Urine Appearance (Clear) Urine pH (5.0-8.0) Ur Specific [place] (1.005-1.030) Urine Protein (Negative) Urine Glucose (UA) (Negative) Urine Ketones (Negative) Urine Occult Blood (Negative) Urine Nitrite (Negative) Urine Bilirubin (Negative) Urine Urobilinogen (0.2-1.0) Ur Leukocyte Esterase (Negative) Urine RBC (0-5) /hpf Urine WBC (0-5) /hpf Ur Epithelial Cells (0-5) /hpf Urine Bacteria (FEW) /hpf Urine Mucus (FEW) /hpf SARS-CoV-2 RNA (CATIE) (NEGATIVE) MRSA (PCR) 04/06/21 04/06/21 04/06/21 Range/Units 10:53 10:53 10:53 WBC (3.98-10.04) K/mm3 RBC (3.98-5.22) M/mm3 Hgb (11.2-15.7) gm/dl Hct (34.1-44.9) % MCV (79.4-94.8) fl MCH (25.6-32.2) pg MCHC (32.2-35.5) g/dl RDW Std Deviation (36.4-46.3) fL Plt Count (182-369) K/mm3 MPV (9.4-12.3) fl Neut % (Auto) (34.0-71.1) % Lymph % (Auto) (19.3-51.7) % [place] % (Auto) (4.7-12.5) % Eos % (Auto) (0.7-5.8) Baso % (Auto) (0.1-1.2) % Neut # (Auto) (1.56-6.13) K/mm3 Lymph # (Auto) (1.18-3.74) K/mm3 [place] # (Auto) (0.24-0.36) K/mm3 Eos # (Auto) (0.04-0.36) K/mm3 Baso # (Auto) (0.01-0.08) K/mm3 Manual Slide Review ESR (0-20) mm/hr PT (9.7-12.0) SECONDS INR APTT 35.4 H (21.7-31.4) SECONDS Sodium (136-145) mEq/L Potassium (3.5-5.1) mEq/L Chloride (98-107) mEq/L Carbon Dioxide (21-32) mEq/L Anion Gap (5-15) BUN (7-18) mg/dL Creatinine (0.55-1.02) mg/dL Est Cr Clr Drug Dosing mL/min Estimated GFR (MDRD) (>60) mL/min BUN/Creatinine Ratio (14-18) Glucose (70-99) mg/dL Lactic Acid 1.1 (0.4-2.0) mmol/L Uric Acid (2.6-6.0) mg/dL Calcium (8.5-10.1) mg/dL Magnesium (1.8-2.4) mg/dL Total Bilirubin (0.2-1.0) mg/dL AST (15-37) U/L ALT (14-59) U/L Alkaline Phosphatase (46-116) U/L Troponin I (0.00-0.056) ng/mL C-Reactive Protein (<1.0) mg/dL NT-Pro-B Natriuret Pep 5068 H (0-450) pg/mL Total Protein (6.4-8.2) g/dl Albumin (3.4-5.0) g/dl Globulin gm/dL Albumin/Globulin Ratio (1-2) Urine Color (Yellow) Urine Appearance (Clear) Urine pH (5.0-8.0) Ur Specific [place] (1.005-1.030) Urine Protein (Negative) Urine Glucose (UA) (Negative) Urine Ketones (Negative) Urine Occult Blood (Negative) Urine Nitrite (Negative) Urine Bilirubin (Negative) Urine Urobilinogen (0.2-1.0) Ur Leukocyte Esterase (Negative) Urine RBC (0-5) /hpf Urine WBC (0-5) /hpf Ur Epithelial Cells (0-5) /hpf Urine Bacteria (FEW) /hpf Urine Mucus (FEW) /hpf SARS-CoV-2 RNA (CATIE) (NEGATIVE) MRSA (PCR) 04/06/21 04/06/21 04/06/21 Range/Units 11:04 11:30 12:50 WBC (3.98-10.04) K/mm3 RBC (3.98-5.22) M/mm3 Hgb (11.2-15.7) gm/dl Hct (34.1-44.9) % MCV (79.4-94.8) fl MCH (25.6-32.2) pg MCHC (32.2-35.5) g/dl RDW Std Deviation (36.4-46.3) fL Plt Count (182-369) K/mm3 MPV (9.4-12.3) fl Neut % (Auto) (34.0-71.1) % Lymph % (Auto) (19.3-51.7) % [place] % (Auto) (4.7-12.5) % Eos % (Auto) (0.7-5.8) Baso % (Auto) (0.1-1.2) % Neut # (Auto) (1.56-6.13) K/mm3 Lymph # (Auto) (1.18-3.74) K/mm3 [place] # (Auto) (0.24-0.36) K/mm3 Eos # (Auto) (0.04-0.36) K/mm3 Baso # (Auto) (0.01-0.08) K/mm3 Manual Slide Review ESR 77 H (0-20) mm/hr PT (9.7-12.0) SECONDS INR APTT (21.7-31.4) SECONDS Sodium (136-145) mEq/L Potassium (3.5-5.1) mEq/L Chloride (98-107) mEq/L Carbon Dioxide (21-32) mEq/L Anion Gap (5-15) BUN (7-18) mg/dL Creatinine (0.55-1.02) mg/dL Est Cr Clr Drug Dosing mL/min Estimated GFR (MDRD) (>60) mL/min BUN/Creatinine Ratio (14-18) Glucose (70-99) mg/dL Lactic Acid (0.4-2.0) mmol/L Uric Acid (2.6-6.0) mg/dL Calcium (8.5-10.1) mg/dL Magnesium (1.8-2.4) mg/dL Total Bilirubin (0.2-1.0) mg/dL AST (15-37) U/L ALT (14-59) U/L Alkaline Phosphatase (46-116) U/L Troponin I (0.00-0.056) ng/mL C-Reactive Protein (<1.0) mg/dL NT-Pro-B Natriuret Pep (0-450) pg/mL Total Protein (6.4-8.2) g/dl Albumin (3.4-5.0) g/dl Globulin gm/dL Albumin/Globulin Ratio (1-2) Urine Color Yellow (Yellow) Urine Appearance Slt cloudy H (Clear) Urine pH 6.5 (5.0-8.0) Ur Specific [place] 1.015 (1.005-1.030) Urine Protein Negative (Negative) Urine Glucose (UA) Negative (Negative) Urine Ketones Negative (Negative) Urine Occult Blood Negative (Negative) Urine Nitrite Negative (Negative) Urine Bilirubin Negative (Negative) Urine Urobilinogen 0.2 (0.2-1.0) Ur Leukocyte Esterase Negative (Negative) Urine RBC 0-5 (0-5) /hpf Urine WBC 0-5 (0-5) /hpf Ur Epithelial Cells 5-10 H (0-5) /hpf Urine Bacteria Few (FEW) /hpf Urine Mucus Not seen (FEW) /hpf SARS-CoV-2 RNA (CATIE) Negative (NEGATIVE) MRSA (PCR) 04/06/21 04/07/21 04/07/21 Range/Units 15:10 05:41 05:41 WBC 6.71 (3.98-10.04) K/mm3 RBC 2.07 L (3.98-5.22) M/mm3 Hgb 7.3 L* (11.2-15.7) gm/dl Hct 23.9 L (34.1-44.9) % MCV 115.5 H (79.4-94.8) fl MCH 35.3 H (25.6-32.2) pg MCHC 30.5 L (32.2-35.5) g/dl RDW Std Deviation 80.8 H (36.4-46.3) fL Plt Count 188 (182-369) K/mm3 MPV 10.6 (9.4-12.3) fl Neut % (Auto) 78.1 H (34.0-71.1) % Lymph % (Auto) 8.2 L (19.3-51.7) % [place] % (Auto) 13.1 H (4.7-12.5) % Eos % (Auto) 0.1 L (0.7-5.8) Baso % (Auto) 0.1 (0.1-1.2) % Neut # (Auto) 5.23 (1.56-6.13) K/mm3 Lymph # (Auto) 0.55 L (1.18-3.74) K/mm3 [place] # (Auto) 0.88 H (0.24-0.36) K/mm3 Eos # (Auto) 0.01 L (0.04-0.36) K/mm3 Baso # (Auto) 0.01 (0.01-0.08) K/mm3 Manual Slide Review ESR (0-20) mm/hr PT (9.7-12.0) SECONDS INR APTT (21.7-31.4) SECONDS Sodium 143 (136-145) mEq/L Potassium 3.2 L (3.5-5.1) mEq/L Chloride 104 (98-107) mEq/L Carbon Dioxide 30 (21-32) mEq/L Anion Gap 12.2 (5-15) BUN 20 H (7-18) mg/dL Creatinine 1.3 H (0.55-1.02) mg/dL Est Cr Clr Drug Dosing 27.82 mL/min Estimated GFR (MDRD) 39 (>60) mL/min BUN/Creatinine Ratio 15.4 (14-18) Glucose 112 H (70-99) mg/dL Lactic Acid (0.4-2.0) mmol/L Uric Acid (2.6-6.0) mg/dL Calcium 8.3 L (8.5-10.1) mg/dL Magnesium (1.8-2.4) mg/dL Total Bilirubin (0.2-1.0) mg/dL AST (15-37) U/L ALT (14-59) U/L Alkaline Phosphatase (46-116) U/L Troponin I (0.00-0.056) ng/mL C-Reactive Protein (<1.0) mg/dL NT-Pro-B Natriuret Pep (0-450) pg/mL Total Protein (6.4-8.2) g/dl Albumin (3.4-5.0) g/dl Globulin gm/dL Albumin/Globulin Ratio (1-2) Urine Color (Yellow) Urine Appearance (Clear) Urine pH (5.0-8.0) Ur Specific [place] (1.005-1.030) Urine Protein (Negative) Urine Glucose (UA) (Negative) Urine Ketones (Negative) Urine Occult Blood (Negative) Urine Nitrite (Negative) Urine Bilirubin (Negative) Urine Urobilinogen (0.2-1.0) Ur Leukocyte Esterase (Negative) Urine RBC (0-5) /hpf Urine WBC (0-5) /hpf Ur Epithelial Cells (0-5) /hpf Urine Bacteria (FEW) /hpf Urine Mucus (FEW) /hpf SARS-CoV-2 RNA (CATIE) (NEGATIVE) MRSA (PCR) Negative Result Diagrams: 04/07/21 05:41 04/07/21 05:41 Sepsis Event Note - Evaluation Sepsis Screening Result: No Definite Risk - Focused Exam Vital Signs: Vital Signs Temp Pulse Resp BP Pulse Ox 04/07/21 04:43 98.1 F 63 20 136/57 L 93 L 04/07/21 01:37 98.4 F 64 18 124/69 92 L 04/06/21 19:42 97.7 F 52 L 20 134/46 L 98 - Problem List & Annotations (1) History of atrial fibrillation SNOMED Code(s): 576544610 Code(s): Z86.79 - PERSONAL HISTORY OF OTHER DISEASES OF THE CIRCULATORY SYSTEM Status: Chronic Priority: Medium Current Visit: Yes (2) Bronchitis SNOMED Code(s): 49050104 Code(s): J40 - BRONCHITIS, NOT SPECIFIED ACUTE OR CHRONIC Status: Acute Priority: High Current Visit: Yes (3) Acute febrile illness SNOMED Code(s): 395566832 Code(s): R50.9 - FEVER, UNSPECIFIED Status: Resolved Priority: High Current Visit: Yes (4) Chronic congestive heart failure SNOMED Code(s): 71965306 Code(s): I50.9 - HEART FAILURE, UNSPECIFIED Status: Chronic Priority: Low Current Visit: No Qualifiers: Heart failure type: unspecified Qualified Code(s): I50.9 - Heart failure, unspecified (5) Lung cancer, primary, with metastasis from lung to other site SNOMED Code(s): 46696383, 821480267 Code(s): C34.90 - MALIGNANT NEOPLASM OF UNSP PART OF UNSP BRONCHUS OR LUNG Status: Chronic Priority: Medium Current Visit: No Qualifiers: Laterality: right Qualified Code(s): C34.91 - Malignant neoplasm of unspecified part of right bronchus or lung (6) Anemia SNOMED Code(s): 369458883 Code(s): D64.9 - ANEMIA, UNSPECIFIED Status: Acute Priority: High Current Visit: Yes Qualifiers: Anemia type: due to chronic kidney disease Chronic kidney disease stage: stage 3 (moderate) Chronic kidney disease stage 3 subtype: stage 3b (GFR 30- 44) Qualified Code(s): N18.32 - Chronic kidney disease, stage 3b; D63.1 - Anemia in chronic kidney disease (7) CAD (coronary artery disease) SNOMED Code(s): 39848746 Code(s): I25.10 - ATHSCL HEART DISEASE OF [place] CORONARY ARTERY W/O ANG PCTRS Status: Chronic Priority: Medium Current Visit: No Qualifiers: Coronary Disease-Associated Artery/Lesion type: [place] artery [place] vs. transplanted heart: [place] heart Associated angina: unspecified whether angina present Qualified Code(s): I25.10 - Atherosclerotic heart disease of [place] coronary artery without angina pectoris Annotation/Comment:: Follow serial troponins. continue ASA, Statin, beta eveline when possible. (8) Pacemaker SNOMED Code(s): 868390909 Code(s): Z95.0 - PRESENCE OF CARDIAC PACEMAKER Status: Chronic Priority: Medium Current Visit: No (9) Chronic renal insufficiency, stage III (moderate) SNOMED Code(s): 370970925 Code(s): N18.30 - CHRONIC KIDNEY DISEASE, STAGE 3 UNSPECIFIED Status: Chronic Priority: Medium Current Visit: No Qualifiers: Chronic kidney disease stage 3 subtype: stage 3b (GFR 30-44) Qualified Code(s): N18.32 - Chronic kidney disease, stage 3b (10) Congestive heart failure SNOMED Code(s): 11315605 Code(s): I50.9 - HEART FAILURE, UNSPECIFIED Status: Chronic Priority: Medium Current Visit: No Annotation/Comment:: Acute on chronic (11) Diabetes mellitus SNOMED Code(s): 51969705 Code(s): E11.9 - TYPE 2 DIABETES MELLITUS WITHOUT COMPLICATIONS Status: Chronic Priority: Medium Current Visit: No Qualifiers: Diabetes mellitus type: type 2 Diabetes mellitus ocean forwarder insulin use: without care home use Diabetes mellitus complication status: with neurologic complications Diabetes mellitus complication detail: with mononeuropathy Qualified Code(s): E11.41 - Type 2 diabetes mellitus with diabetic mononeuropathy (12) Hypothyroidism SNOMED Code(s): 72428263 Code(s): E03.9 - HYPOTHYROIDISM, UNSPECIFIED Status: Chronic Priority: Low Current Visit: No Qualifiers: Hypothyroidism type: unspecified Qualified Code(s): E03.9 - Hypothyroidism, unspecified (13) Metastatic adenocarcinoma to brain SNOMED Code(s): 453626105, 445408248 Code(s): C79.31 - SECONDARY MALIGNANT NEOPLASM OF BRAIN Status: Chronic Priority: Medium Current Visit: No (14) Hypokalemia SNOMED Code(s): 57336459 Code(s): E87.6 - HYPOKALEMIA Status: Acute Priority: High Current Visit: Yes - Problem List Review Problem List Initiated/Reviewed/Updated: Yes - Assessment Assessment:: 04/07/2021 This is an 85-year-old female presents to ED on 04-06-2021 with reports of fever, rigor, and chills. Patient does carry history of lung cancer with partial lobectomy and metastasis to contralateral lung and brain. She is currently not undergoing any treatment for this. She does have a pacemaker and a port in place. Chest x-ray on admission was essentially stable from prior chest x-rays. She has had stable labs and no fevers demonstrated while here. She is chronically on 2 L of oxygen and resides at [facility]. She has been requiring 3 L while here. Today we did have a lengthy discussion about her overall prognosis and plan of care. Her goal is to someday return to [facility], however PT and OT here continue to recommend SNF placement. She is been ad mitted to the hospital 3 times in the past month for CHF exacerbations and gout attacks. We are currently treating her for bronchitis versus early pneumonia. MRSA screen was negative so we will discontinue vancomycin and continue the cefepime. Patient and daughter at bedside report that she did see hospice for consult a few weeks ago while at [facility], but has not been formally enrolled in their program. She said her primary care provider Dr. Andrews has advised them that they should look into this. We again discussed it and case management/social work are working with her on this. At this time it does not appear that she is ready for formal admission to the program. She does however note that she is getting tired of regularly coming to the hospital. Otherwise she continues to look okay and states she feels pretty good. Her potassium was low today and will be supplemented. Her hemoglobin was low we will watch this and transfuse if necessary. Plan for discharge in the next 24 to 48 hours on p.o. antibiotic. Overall prognosis is very poor. She also remains a very high readmission risk. - Plan Plan:: 85-year-old female with a past medical history as listed above who presented to the [facility] emergency department with subjective history of fever, rigors and cough starting within the past 36 hours. 1. Subjective fever with possible developing bronchitis and/or pneumonia. Will admit to the hospitalist service for further observation and management. Vitals and examination otherwise reassuring. Labs also reassuring at this time. Continue empiric antibiotics with cefepime for now as she was recently admitted to the hospital for congestive heart failure in late February. MRSA swab negative - discontinue Vancomycin Monitor volume status. Sputum sample for culture and sensitivities. Blood cultures negative after one day 2. Atrial fibrillation on systemic anticoagulation. We will downgrade her Eliquis dose to 2.5 mg twice daily considering she is less than 60 kg in weight and is greater than 80 years old. Continue home cardiac medications at regular dose otherwise. 3. History of metastatic lung cancer with spread of disease to contralateral lung and brain. No longer receiving therapy. Follow with PCP regarding further plans as well as oncology. 4. Type 2 diabetes mellitus. Patient still carbohydrate counts. We will place her on the an ADA diet as she still treats her self. May eat a regular diet otherwise if she really wants to. Continue home insulin regimen. Invoke hospital hyperglycemia protocol if necessary. 5. Hypothyroidism. Continue daily synthetic hormone replacement. 6. History of chronic congestive heart failure; otherwise unspecified as ejection fraction unknown. Monitor volume status. Continue cardiac maintenance therapies. 7. History of gout. Continue maintenance therapy with colchicine. 8. History of coronary artery disease. Continue statin and all home cardiac medications at regular dose. Nitroglycerin as needed for chest pain. 9. History of hypertension. Continue home cardiac medications at regular dose. 10. CKD stage III. Avoid nephrotoxins. Intermittent check of labs. Replace electrolytes as necessary. 11. Anemia. Acute on chronic Monitor labs and transfuse if Hgb <7.0 12. Hypokalemia Supplement Re-check AM labs CODE STATUS: DNR/DNI DVT prophylaxis; on systemic anticoagulation with Eliquis. <Luis Alfredo Banda Jr - Last Filed: 04/07/21 16:20> - Patient Data Vitals - Most Recent: Last Vital Signs Temp 97.2 F 04/07/21 11:48 Pulse 65 04/07/21 11:48 Resp 20 04/07/21 11:48 BP 115/63 04/07/21 11:48 Pulse Ox 96 04/07/21 11:48 I&O - Last 24 Hours: Intake & Output 04/07/21 04/07/21 04/07/21 06:59 14:59 22:59 Intake Total 1750 Output Total 960 Balance 790 Lab Results Last 24 Hours: Laboratory Results - last 24 hr 04/06/21 04/07/21 04/07/21 Range/Units 15:10 05:41 05:41 WBC 6.71 (3.98-10.04) K/mm3 RBC 2.07 L (3.98-5.22) M/mm3 Hgb 7.3 L* (11.2-15.7) gm/dl Hct 23.9 L (34.1-44.9) % MCV 115.5 H (79.4-94.8) fl MCH 35.3 H (25.6-32.2) pg MCHC 30.5 L (32.2-35.5) g/dl RDW Std Deviation 80.8 H (36.4-46.3) fL Plt Count 188 (182-369) K/mm3 MPV 10.6 (9.4-12.3) fl Neut % (Auto) 78.1 H (34.0-71.1) % Lymph % (Auto) 8.2 L (19.3-51.7) % [place] % (Auto) 13.1 H (4.7-12.5) % Eos % (Auto) 0.1 L (0.7-5.8) Baso % (Auto) 0.1 (0.1-1.2) % Neut # (Auto) 5.23 (1.56-6.13) K/mm3 Lymph # (Auto) 0.55 L (1.18-3.74) K/mm3 [place] # (Auto) 0.88 H (0.24-0.36) K/mm3 Eos # (Auto) 0.01 L (0.04-0.36) K/mm3 Baso # (Auto) 0.01 (0.01-0.08) K/mm3 Manual Slide Review Abnormal smear Sodium 143 (136-145) mEq/L Potassium 3.2 L (3.5-5.1) mEq/L Chloride 104 (98-107) mEq/L Carbon Dioxide 30 (21-32) mEq/L Anion Gap 12.2 (5-15) BUN 20 H (7-18) mg/dL Creatinine 1.3 H (0.55-1.02) mg/dL Est Cr Clr Drug Dosing 27.82 mL/min Estimated GFR (MDRD) 39 (>60) mL/min BUN/Creatinine Ratio 15.4 (14-18) Glucose 112 H (70-99) mg/dL Calcium 8.3 L (8.5-10.1) mg/dL Magnesium (1.8-2.4) mg/dL MRSA (PCR) Negative 04/07/21 Range/Units 05:41 WBC (3.98-10.04) K/mm3 RBC (3.98-5.22) M/mm3 Hgb (11.2-15.7) gm/dl Hct (34.1-44.9) % MCV (79.4-94.8) fl MCH (25.6-32.2) pg MCHC (32.2-35.5) g/dl RDW Std Deviation (36.4-46.3) fL Plt Count (182-369) K/mm3 MPV (9.4-12.3) fl Neut % (Auto) (34.0-71.1) % Lymph % (Auto) (19.3-51.7) % [place] % (Auto) (4.7-12.5) % Eos % (Auto) (0.7-5.8) Baso % (Auto) (0.1-1.2) % Neut # (Auto) (1.56-6.13) K/mm3 Lymph # (Auto) (1.18-3.74) K/mm3 [place] # (Auto) (0.24-0.36) K/mm3 Eos # (Auto) (0.04-0.36) K/mm3 Baso # (Auto) (0.01-0.08) K/mm3 Manual Slide Review Sodium (136-145) mEq/L Potassium (3.5-5.1) mEq/L Chloride (98-107) mEq/L Carbon Dioxide (21-32) mEq/L Anion Gap (5-15) BUN (7-18) mg/dL Creatinine (0.55-1.02) mg/dL Est Cr Clr Drug Dosing mL/min Estimated GFR (MDRD) (>60) mL/min BUN/Creatinine Ratio (14-18) Glucose (70-99) mg/dL Calcium (8.5-10.1) mg/dL Magnesium 1.4 L (1.8-2.4) mg/dL MRSA (PCR) Tod Results Last 24 Hours: Microbiology 04/06/21 11:04 Aerobic Blood Culture - Preliminary Blood - Venous - Lab Draw NO GROWTH AFTER 1 DAY Anaerobic Blood Culture - Preliminary NO GROWTH AFTER 1 DAY 04/06/21 10:53 Aerobic Blood Culture - Preliminary Blood - Venous NO GROWTH AFTER 1 DAY Anaerobic Blood Culture - Preliminary NO GROWTH AFTER 1 DAY Med Orders - Current: Current Medications Acetaminophen (Acetaminophen 325 Mg Tab) 650 mg PO Q4H PRN PRN Reason: Pain Albuterol/Ipratropium (Albuterol/Ipratropium 3.0-0.5 Mg/3 Ml Neb Soln) 3 ml NEB Q4H PRN PRN Reason: Shortness Of Breath/wheezing Allopurinol (Allopurinol 300 Mg Tab) 150 mg PO DAILY [facility] Last Admin: 04/07/21 08:48 Dose: 150 mg Documented by: Apixaban (Apixaban 2.5 Mg Tab) 2.5 mg PO BID LUCIO Last Admin: 04/07/21 08:48 Dose: 2.5 mg Documented by: Atorvastatin Calcium (Atorvastatin 40 Mg Tab) 40 mg PO BEDTIME LUCIO Last Admin: 04/06/21 21:50 Dose: 40 mg Documented by: Bisacodyl (Bisacodyl 5 Mg Tab) 10 mg PO DAILY PRN PRN Reason: Constipation Cholecalciferol (Cholecalciferol (Vitamin D3) 25 Mcg Tab) 50 mcg PO DAILY [facility] Last Admin: 04/07/21 08:48 Dose: 50 mcg Documented by: Colchicine (Colchicine 0.6 Mg Tab) 0.3 mg PO DAILY PRN PRN Reason: Other Folic Acid (Folic Acid 1 Mg Tab) 1 mg PO DAILY [facility] Last Admin: 04/07/21 08:49 Dose: 1 mg Documented by: Furosemide (Furosemide 40 Mg Tab) 40 mg PO DAILY LUCIO Last Admin: 04/07/21 08:49 Dose: 40 mg Documented by: Cefepime HCl 1 gm/ Sodium (Chloride) 50 mls @ 100 mls/hr IV Q24H LUCIO Last Admin: 04/06/21 21:50 Dose: 100 mls/hr Documented by: Insulin Glargine (Insulin Glarg,Human.Rec.Analog 100 Unit/Ml) 13 unit SUBCUT DAILY [facility] Last Admin: 04/07/21 08:50 Dose: 13 units Documented by: Latanoprost (Latanoprost 0.005% Ophth Soln 2.5 Ml Bottle) 0 ml EYEBOTH BEDTIME LUCIO Last Admin: 04/06/21 21:51 Dose: 1 drop Documented by: Levothyroxine Sodium (Levothyroxine 75 Mcg Tab) 75 mcg PO ACBREAKFAST [facility] Last Admin: 04/07/21 05:21 Dose: Not Given Documented by: Lisinopril (Lisinopril 20 Mg Tab) 40 mg PO DAILY [facility] Last Admin: 04/07/21 08:49 Dose: 40 mg Documented by: Metoprolol Succinate (Metoprolol Succinate 50 Mg Tab.Er) 100 mg PO DAILY [facility] Last Admin: 04/07/21 08:49 Dose: 100 mg Documented by: Nitroglycerin (Nitroglycerin 0.4 Mg Tab.Sl) 0.4 mg SL ASDIRECTED PRN PRN Reason: Chest Pain Potassium Chloride (Potassium Chloride 20 Meq Tab.Er) 40 meq PO BID [facility] Stop: 04/07/21 21:01 Last Admin: 04/07/21 09:40 Dose: 40 meq Documented by: Psyllium Husk (Psyllium Husk Powder Sugar Free 5.85 Gm Packet) 1 pkt PO BID [facility] Last Admin: 04/07/21 08:51 Dose: 1 pkt Documented by: Senna (Sennosides 8.6 Mg Tab) 17.2 mg PO DAILY [facility] Last Admin: 04/07/21 08:48 Dose: 17.2 mg Documented by: Tramadol HCl (Tramadol 50 Mg Tab) 50 mg PO Q6H PRN PRN Reason: Pain Last Admin: 04/07/21 04:42 Dose: 50 mg Documented by: Discontinued Medications Acetaminophen (Acetaminophen 325 Mg Tab) 650 mg PO ONETIME ONE Stop: 04/06/21 10:32 Last Admin: 04/06/21 10:51 Dose: 650 mg Documented by: Albuterol/Ipratropium (Albuterol/Ipratropium 3.0-0.5 Mg/3 Ml Neb Soln) 3 ml NEB Q4H PRN PRN Reason: Shortness Of Breath/wheezing Last Admin: 04/06/21 11:11 Dose: 3 ml Documented by: Apixaban (Apixaban 5 Mg Tab) 5 mg PO BID [facility] Furosemide (Furosemide 40 Mg/4 Ml Vial) 60 mg IVPUSH NOW ONE Stop: 04/06/21 11:10 Last Admin: 04/06/21 12:22 Dose: 60 mg Documented by: Sodium Chloride (Normal Saline) 1,000 mls @ 75 mls/hr IV ASDIRECTED LUCIO Last Admin: 04/07/21 04:49 Dose: 75 mls/hr Documented by: Ceftriaxone Sodium 2 gm/ (Sodium Chloride) 100 mls @ 200 mls/hr IV ONETIME ONE Stop: 04/06/21 12:02 Last Admin: 04/06/21 12:23 Dose: 200 mls/hr Documented by: Vancomycin HCl 1 gm/ Sodium (Chloride) 250 mls @ 250 mls/hr IV Q24H [facility] Last Admin: 04/06/21 14:47 Dose: 250 mls/hr Documented by: Magnesium Sulfate 2 gm/ Premix 50 mls @ 25 mls/hr IV ONETIME ONE Stop: 04/07/21 14:44 Last Admin: 04/07/21 13:39 Dose: 25 mls/hr Documented by: Metoclopramide HCl (Metoclopramide 10 Mg/2 Ml Sdv) 5 mg IVPUSH ONETIME ONE Stop: 04/06/21 10:32 Last Admin: 04/06/21 10:50 Dose: 5 mg Documented by: Vancomycin HCl (Pharmacy To Dose - Vancomycin) 1 dose .XX ASDIRECTED PRN PRN Reason: RX TO DOSE VANCO - Patient Data Lab Results Last 24 hrs: Laboratory Results - last 24 hr 04/06/21 04/07/21 04/07/21 Range/Units 15:10 05:41 05:41 WBC 6.71 (3.98-10.04) K/mm3 RBC 2.07 L (3.98-5.22) M/mm3 Hgb 7.3 L* (11.2-15.7) gm/dl Hct 23.9 L (34.1-44.9) % MCV 115.5 H (79.4-94.8) fl MCH 35.3 H (25.6-32.2) pg MCHC 30.5 L (32.2-35.5) g/dl RDW Std Deviation 80.8 H (36.4-46.3) fL Plt Count 188 (182-369) K/mm3 MPV 10.6 (9.4-12.3) fl Neut % (Auto) 78.1 H (34.0-71.1) % Lymph % (Auto) 8.2 L (19.3-51.7) % [place] % (Auto) 13.1 H (4.7-12.5) % Eos % (Auto) 0.1 L (0.7-5.8) Baso % (Auto) 0.1 (0.1-1.2) % Neut # (Auto) 5.23 (1.56-6.13) K/mm3 Lymph # (Auto) 0.55 L (1.18-3.74) K/mm3 [place] # (Auto) 0.88 H (0.24-0.36) K/mm3 Eos # (Auto) 0.01 L (0.04-0.36) K/mm3 Baso # (Auto) 0.01 (0.01-0.08) K/mm3 Manual Slide Review Abnormal smear Sodium 143 (136-145) mEq/L Potassium 3.2 L (3.5-5.1) mEq/L Chloride 104 (98-107) mEq/L Carbon Dioxide 30 (21-32) mEq/L Anion Gap 12.2 (5-15) BUN 20 H (7-18) mg/dL Creatinine 1.3 H (0.55-1.02) mg/dL Est Cr Clr Drug Dosing 27.82 mL/min Estimated GFR (MDRD) 39 (>60) mL/min BUN/Creatinine Ratio 15.4 (14-18) Glucose 112 H (70-99) mg/dL Calcium 8.3 L (8.5-10.1) mg/dL Magnesium (1.8-2.4) mg/dL MRSA (PCR) Negative 04/07/21 Range/Units 05:41 WBC (3.98-10.04) K/mm3 RBC (3.98-5.22) M/mm3 Hgb (11.2-15.7) gm/dl Hct (34.1-44.9) % MCV (79.4-94.8) fl MCH (25.6-32.2) pg MCHC (32.2-35.5) g/dl RDW Std Deviation (36.4-46.3) fL Plt Count (182-369) K/mm3 MPV (9.4-12.3) fl Neut % (Auto) (34.0-71.1) % Lymph % (Auto) (19.3-51.7) % [place] % (Auto) (4.7-12.5) % Eos % (Auto) (0.7-5.8) Baso % (Auto) (0.1-1.2) % Neut # (Auto) (1.56-6.13) K/mm3 Lymph # (Auto) (1.18-3.74) K/mm3 [place] # (Auto) (0.24-0.36) K/mm3 Eos # (Auto) (0.04-0.36) K/mm3 Baso # (Auto) (0.01-0.08) K/mm3 Manual Slide Review Sodium (136-145) mEq/L Potassium (3.5-5.1) mEq/L Chloride (98-107) mEq/L Carbon Dioxide (21-32) mEq/L Anion Gap (5-15) BUN (7-18) mg/dL Creatinine (0.55-1.02) mg/dL Est Cr Clr Drug Dosing mL/min Estimated GFR (MDRD) (>60) mL/min BUN/Creatinine Ratio (14-18) Glucose (70-99) mg/dL Calcium (8.5-10.1) mg/dL Magnesium 1.4 L (1.8-2.4) mg/dL MRSA (PCR) Result Diagrams: 04/07/21 05:41 04/07/21 05:41 Tod Results Last 24 hrs: Microbiology 04/06/21 11:04 Aerobic Blood Culture - Preliminary Blood - Venous - Lab Draw NO GROWTH AFTER 1 DAY Anaerobic Blood Culture - Preliminary NO GROWTH AFTER 1 DAY 04/06/21 10:53 Aerobic Blood Culture - Preliminary Blood - Venous NO GROWTH AFTER 1 DAY Anaerobic Blood Culture - Preliminary NO GROWTH AFTER 1 DAY Sepsis Event Note - Focused Exam Vital Signs: Vital Signs Temp Pulse Resp BP Pulse Ox 04/07/21 11:48 97.2 F 65 20 115/63 96 04/07/21 08:49 56 L 141/50 H 04/07/21 07:57 97.7 F 56 L 18 141/50 H 98 04/07/21 04:43 98.1 F 63 20 136/57 L 93 L - My Orders Last 24 Hours: My Active Orders 04/06/21 Dinner ADA Diabetic [[employer] Diet] [DIET] 04/06/21 18:10 Incentive Breathing [RT Incentive Spirometry] [RC] ASDIRECTED 04/06/21 18:11 RT Chest Physiotherapy [RC] ASDIRECTED 04/06/21 21:00 Apixaban [Eliquis] 2.5 mg PO BID Cefepime [Maxipime] 1 gm Sodium Chloride 0.9% [Normal Saline] 50 ml IV Q24H Latanoprost [Xalatan 0.005% Ophth Soln] 0 ml EYEBOTH BEDTIME Psyllium Husk/Aspartame [Metamucil Sugar Free] 1 pkt PO BID atorvaSTATin [Lipitor] 40 mg PO BEDTIME 04/07/21 06:00 Levothyroxine 75 mcg PO ACBREAKFAST 04/07/21 09:00 Cholecalciferol (Vitamin D3) [Vitamin D3] 50 mcg PO DAILY Folic Acid 1 mg PO DAILY Furosemide [Lasix] 40 mg PO DAILY Insulin Glarg,Human.Rec.Analog [LantUS] 13 unit SUBCUT DAILY Metoprolol Succinate [Toprol XL] 100 mg PO DAILY Sennosides [Senna] 17.2 mg PO DAILY allopurinoL [Zyloprim] 150 mg PO DAILY lisinopriL [Prinivil] 40 mg PO DAILY 04/08/21 06:00 BASIC METABOLIC PANEL,BMP [CHEM] DAILY CBC WITH AUTO DIFF [HEME] DAILY 04/09/21 06:00 BASIC METABOLIC PANEL,BMP [CHEM] DAILY CBC WITH AUTO DIFF [HEME] DAILY 04/10/21 06:00 BASIC METABOLIC PANEL,BMP [CHEM] DAILY CBC WITH AUTO DIFF [HEME] DAILY 04/11/21 06:00 BASIC METABOLIC PANEL,BMP [CHEM] DAILY CBC WITH AUTO DIFF [HEME] DAILY - Plan Plan:: Case discussed in full. Agree with evaluation, assessment and plan.
[2021-04-07] MEDS: Apixaban 2.5 MG Tab PO SCH ×2 (08:48→20:32)
[2021-04-07] MEDS: Allopurinol 300 MG Tab PO SCH (08:48)
[2021-04-07] MEDS: Cholecalciferol (Vitamin D3) 25 MCG Tab PO SCH (08:48)
[2021-04-07] MEDS: Sennosides 8.6 MG Tab PO SCH (08:48)
[2021-04-07] MEDS: Furosemide 40 MG Tab PO SCH (08:49)
[2021-04-07] MEDS: Lisinopril 20 MG Tab PO SCH (08:49)
[2021-04-07] MEDS: Metoprolol Succinate 50 MG Tab.ER PO SCH (08:49)
[2021-04-07] MEDS: Folic Acid 1 MG Tab PO SCH (08:49)
[2021-04-07] MEDS: Insulin Glarg,Human.Rec.Analog 100 Unit/ML SUBCUT SCH (08:50)
[2021-04-07] MEDS: Psyllium Husk Powder Sugar Free 5.85 GM Packet PO SCH ×2 (08:51→20:32)
[2021-04-07] MEDS: Potassium Chloride 20 MEQ Tab.ER PO SCH ×2 (09:40→20:31)
[2021-04-07] MEDS ORDERED: Magnesium Sulfate/Water 2 GM in Premix Bag 1 BAG IV ONE (12:45)
[2021-04-07] MEDS: Cefepime 1 GM in Sodium Chloride 0.9% 50 ML IV SCH (20:29)
[2021-04-07] MEDS: Acetaminophen 325 MG Tab PO PRN (20:31)
[2021-04-07] MEDS: atorvaSTATin 40 MG Tab PO SCH (20:31)
[2021-04-07] MEDS: Latanoprost 0.005% Ophth Soln 2.5 ML Bottle EYEBOTH SCH (20:32)
[2021-04-08] MEDS ORDERED: Ondansetron 4 MG/2 ML SDV ONE (03:43)
[2021-04-08] MEDS: Ondansetron 4 MG/2 ML SDV IVPUSH PRN ×2 (03:45→14:30)
[2021-04-08] MEDS: Levothyroxine 75 MCG Tab PO SCH (05:07)
--- NOTE | 2021-04-08 07:06 | PCM.PN ---
<Mihir Amador - Last Filed: 04/08/21 11:11> - General Info Date of Service: 04/08/21 Admission Dx/Problem (Free Text): Admission Diagnosis/Problem Admission Diagnosis/Problem Fever in adult Functional Status: Reports: Pain Controlled, Tolerating Diet, Ambulating, Urinating, Incentive Spirometry, Other (Acapella ). Denies: New Symptoms - Review of Systems General: Reports: Weakness. Denies: Fever, Fatigue, Malaise, Chills HEENT: Reports: No Symptoms. Denies: Headaches, Sore Throat Pulmonary: Reports: Shortness of Breath, Cough. Denies: Pleuritic Chest Pain, Sputum, Wheezing Cardiovascular: Reports: Dyspnea on Exertion, Edema. Denies: Chest Pain, Palpitations Gastrointestinal: Reports: No Symptoms. Denies: Abdominal Pain, Constipation, Diarrhea, Nausea, Vomiting Genitourinary: Reports: No Symptoms. Denies: Pain Musculoskeletal: Reports: Joint Pain (left ankle - gout, waxes and wanes ) Skin: Reports: No Symptoms. Denies: Cyanosis Neurological: Reports: Pre-Existing Deficit (utilizes walker). Denies: Confusion, Difficulty Walking, Gait Disturbance Psychiatric: Reports: No Symptoms - Patient Data Vitals - Most Recent: Last Vital Signs Temp 97.9 F 04/08/21 04:03 Pulse 62 04/08/21 04:03 Resp 16 04/08/21 04:03 BP 144/61 H 04/08/21 04:03 Pulse Ox 90 L 04/08/21 04:03 Weight - Most Recent: 175 lb 3.2 oz I&O - Last 24 Hours: Intake & Output 04/07/21 04/08/21 04/08/21 22:59 06:59 14:59 Intake Total 1486 900 Output Total 600 1000 Balance 886 -100 Lab Results Last 24 Hours: Laboratory Results - last 24 hr 04/07/21 04/07/21 04/08/21 Range/Units 05:41 05:41 06:02 WBC 8.13 (3.98-10.04) K/mm3 RBC 2.15 L (3.98-5.22) M/mm3 Hgb 7.8 L (11.2-15.7) gm/dl Hct 25.0 L (34.1-44.9) % MCV 116.3 H (79.4-94.8) fl MCH 36.3 H (25.6-32.2) pg MCHC 31.2 L (32.2-35.5) g/dl RDW Std Deviation 80.1 H (36.4-46.3) fL Plt Count 201 (182-369) K/mm3 MPV 10.5 (9.4-12.3) fl Neut % (Auto) 82.0 H (34.0-71.1) % Lymph % (Auto) 5.7 L (19.3-51.7) % Miner % (Auto) 11.3 (4.7-12.5) % Eos % (Auto) 0.4 L (0.7-5.8) Baso % (Auto) 0.2 (0.1-1.2) % Neut # (Auto) 6.67 H (1.56-6.13) K/mm3 Lymph # (Auto) 0.46 L (1.18-3.74) K/mm3 [place] # (Auto) 0.92 H (0.24-0.36) K/mm3 Eos # (Auto) 0.03 L (0.04-0.36) K/mm3 Baso # (Auto) 0.02 (0.01-0.08) K/mm3 Manual Slide Review Abnormal smear Sodium (136-145) mEq/L Potassium (3.5-5.1) mEq/L Chloride (98-107) mEq/L Carbon Dioxide (21-32) mEq/L Anion Gap (5-15) BUN (7-18) mg/dL Creatinine (0.55-1.02) mg/dL Est Cr Clr Drug Dosing mL/min Estimated GFR (MDRD) (>60) mL/min BUN/Creatinine Ratio (14-18) Glucose (70-99) mg/dL Calcium (8.5-10.1) mg/dL Magnesium 1.4 L (1.8-2.4) mg/dL 04/08/21 04/08/21 Range/Units 06:02 06:02 WBC (3.98-10.04) K/mm3 RBC (3.98-5.22) M/mm3 Hgb (11.2-15.7) gm/dl Hct (34.1-44.9) % MCV (79.4-94.8) fl MCH (25.6-32.2) pg MCHC (32.2-35.5) g/dl RDW Std Deviation (36.4-46.3) fL Plt Count (182-369) K/mm3 MPV (9.4-12.3) fl Neut % (Auto) (34.0-71.1) % Lymph % (Auto) (19.3-51.7) % [place] % (Auto) (4.7-12.5) % Eos % (Auto) (0.7-5.8) Baso % (Auto) (0.1-1.2) % Neut # (Auto) (1.56-6.13) K/mm3 Lymph # (Auto) (1.18-3.74) K/mm3 Min[place] # (Auto) (0.24-0.36) K/mm3 Eos # (Auto) (0.04-0.36) K/mm3 Baso # (Auto) (0.01-0.08) K/mm3 Manual Slide Review Sodium 141 (136-145) mEq/L Potassium 4.4 (3.5-5.1) mEq/L Chloride 105 (98-107) mEq/L Carbon Dioxide 28 (21-32) mEq/L Anion Gap 12.4 (5-15) BUN 18 (7-18) mg/dL Creatinine 1.2 H (0.55-1.02) mg/dL Est Cr Clr Drug Dosing 30.14 mL/min Estimated GFR (MDRD) 43 (>60) mL/min BUN/Creatinine Ratio 15.0 (14-18) Glucose 134 H (70-99) mg/dL Calcium 8.5 (8.5-10.1) mg/dL Magnesium 1.8 (1.8-2.4) mg/dL Tod Results Last 24 Hours: Microbiology 04/06/21 11:04 Aerobic Blood Culture - Preliminary Blood - Venous - Lab Draw Gram Positive Cocci Anaerobic Blood Culture - Preliminary NO GROWTH AFTER 1 DAY 04/06/21 10:53 Aerobic Blood Culture - Preliminary Blood - Venous NO GROWTH AFTER 1 DAY Anaerobic Blood Culture - Preliminary NO GROWTH AFTER 1 DAY Med Orders - Current: Current Medications Acetaminophen (Acetaminophen 325 Mg Tab) 650 mg PO Q4H PRN PRN Reason: Pain Last Admin: 04/07/21 20:31 Dose: 650 mg Documented by: Albuterol/Ipratropium (Albuterol/Ipratropium 3.0-0.5 Mg/3 Ml Neb Soln) 3 ml NEB Q4H PRN PRN Reason: Shortness Of Breath/wheezing Allopurinol (Allopurinol 300 Mg Tab) 150 mg PO DAILY LUCIO Last Admin: 04/07/21 08:48 Dose: 150 mg Documented by: Apixaban (Apixaban 2.5 Mg Tab) 2.5 mg PO BID LUCIO Last Admin: 04/07/21 20:32 Dose: 2.5 mg Documented by: Atorvastatin Calcium (Atorvastatin 40 Mg Tab) 40 mg PO BEDTIME LUCIO Last Admin: 04/07/21 20:31 Dose: 40 mg Documented by: Bisacodyl (Bisacodyl 5 Mg Tab) 10 mg PO DAILY PRN PRN Reason: Constipation Cholecalciferol (Cholecalciferol (Vitamin D3) 25 Mcg Tab) 50 mcg PO DAILY LUCIO Last Admin: 04/07/21 08:48 Dose: 50 mcg Documented by: Colchicine (Colchicine 0.6 Mg Tab) 0.3 mg PO DAILY PRN PRN Reason: Other Last Admin: 04/07/21 20:29 Dose: 0.3 mg Documented by: Folic Acid (Folic Acid 1 Mg Tab) 1 mg PO DAILY LUCIO Last Admin: 04/07/21 08:49 Dose: 1 mg Documented by: Furosemide (Furosemide 40 Mg Tab) 40 mg PO DAILY LUCIO Last Admin: 04/07/21 08:49 Dose: 40 mg Documented by: Cefepime HCl 1 gm/ Sodium (Chloride) 50 mls @ 100 mls/hr IV Q24H LUCIO Last Admin: 04/07/21 20:29 Dose: 100 mls/hr Documented by: Insulin Glargine (Insulin Glarg,Human.Rec.Analog 100 Unit/Ml) 13 unit SUBCUT DAILY LUCIO Last Admin: 04/07/21 08:50 Dose: 13 units Documented by: Latanoprost (Latanoprost 0.005% Ophth Soln 2.5 Ml Bottle) 0 ml EYEBOTH BEDTIME LUCIO Last Admin: 04/07/21 20:32 Dose: 1 drop Documented by: Levothyroxine Sodium (Levothyroxine 75 Mcg Tab) 75 mcg PO ACBREAKFAST LUCIO Last Admin: 04/08/21 05:07 Dose: 75 mcg Documented by: Lisinopril (Lisinopril 20 Mg Tab) 40 mg PO DAILY [facility] Last Admin: 04/07/21 08:49 Dose: 40 mg Documented by: Metoprolol Succinate (Metoprolol Succinate 50 Mg Tab.Er) 100 mg PO DAILY [facility] Last Admin: 04/07/21 08:49 Dose: 100 mg Documented by: Nitroglycerin (Nitroglycerin 0.4 Mg Tab.Sl) 0.4 mg SL ASDIRECTED PRN PRN Reason: Chest Pain Ondansetron HCl (Ondansetron 4 Mg/2 Ml Sdv) 4 mg IVPUSH Q4HR PRN PRN Reason: Nausea Last Admin: 04/08/21 03:45 Dose: 4 mg Documented by: Psyllium Husk (Psyllium Husk Powder Sugar Free 5.85 Gm Packet) 1 pkt PO BID [facility] Last Admin: 04/07/21 20:32 Dose: 1 pkt Documented by: Senna (Sennosides 8.6 Mg Tab) 17.2 mg PO DAILY [facility] Last Admin: 04/07/21 08:48 Dose: 17.2 mg Documented by: Tramadol HCl (Tramadol 50 Mg Tab) 50 mg PO Q6H PRN PRN Reason: Pain Last Admin: 04/07/21 17:28 Dose: 50 mg Documented by: Discontinued Medications Acetaminophen (Acetaminophen 325 Mg Tab) 650 mg PO ONETIME ONE Stop: 04/06/21 10:32 Last Admin: 04/06/21 10:51 Dose: 650 mg Documented by: Albuterol/Ipratropium (Albuterol/Ipratropium 3.0-0.5 Mg/3 Ml Neb Soln) 3 ml NEB Q4H PRN PRN Reason: Shortness Of Breath/wheezing Last Admin: 04/06/21 11:11 Dose: 3 ml Documented by: Apixaban (Apixaban 5 Mg Tab) 5 mg PO BID [facility] Furosemide (Furosemide 40 Mg/4 Ml Vial) 60 mg IVPUSH NOW ONE Stop: 04/06/21 11:10 Last Admin: 04/06/21 12:22 Dose: 60 mg Documented by: Sodium Chloride (Normal Saline) 1,000 mls @ 75 mls/hr IV ASDIRECTED [facility] Last Admin: 04/07/21 04:49 Dose: 75 mls/hr Documented by: Ceftriaxone Sodium 2 gm/ (Sodium Chloride) 100 mls @ 200 mls/hr IV ONETIME ONE Stop: 04/06/21 12:02 Last Admin: 04/06/21 12:23 Dose: 200 mls/hr Documented by: Vancomycin HCl 1 gm/ Sodium (Chloride) 250 mls @ 250 mls/hr IV Q24H [facility] Last Admin: 04/06/21 14:47 Dose: 250 mls/hr Documented by: Magnesium Sulfate 2 gm/ Premix 50 mls @ 25 mls/hr IV ONETIME ONE Stop: 04/07/21 14:44 Last Admin: 04/07/21 13:39 Dose: 25 mls/hr Documented by: Metoclopramide HCl (Metoclopramide 10 Mg/2 Ml Sdv) 5 mg IVPUSH ONETIME ONE Stop: 04/06/21 10:32 Last Admin: 04/06/21 10:50 Dose: 5 mg Documented by: Ondansetron HCl (Ondansetron 4 Mg/2 Ml Sdv) Confirm Administered Dose 4 mg .ROUTE .STK-MED ONE Stop: 04/08/21 03:44 Last Admin: 04/08/21 05:00 Dose: Not Given Documented by: Potassium Chloride (Potassium Chloride 20 Meq Tab.Er) 40 meq PO BID [facility] Stop: 04/07/21 21:01 Last Admin: 04/07/21 20:31 Dose: 40 meq Documented by: Vancomycin HCl (Pharmacy To Dose - Vancomycin) 1 dose .XX ASDIRECTED PRN PRN Reason: RX TO DOSE VANCO - Exam Quality Assessment: Supplemental Oxygen (2L - at baseline ), Central Line/PICC (Port in right chest ), DVT Prophylaxis General: Alert, Oriented, Cooperative, No Acute Distress HEENT: Pupils Equal, Pupils Reactive, Mucous Membr. Moist/[place] Neck: Supple, Trachea Midline Lungs: Normal Respiratory Effort, Decreased Breath Sounds, Rhonchi (mild ) Cardiovascular: Regular Rate, Regular Rhythm GI/Abdominal Exam: Normal Bowel Sounds, Soft, Non-Tender, No Distention (Female) Exam: Deferred Back Exam: Normal Inspection, Decreased Range of Motion Extremities: Normal Inspection, Normal Range of Motion, Normal Capillary Refill, Pedal Edema, Leg Pain (Left ankle) Skin: Warm, Dry, Intact Neurological: No New Focal Deficit Psy/Mental Status: Alert, Normal Affect, Normal Mood - Patient Data Lab Results Last 24 hrs: Laboratory Results - last 24 hr 04/07/21 04/07/21 04/08/21 Range/Units 05:41 05:41 06:02 WBC 8.13 (3.98-10.04) K/mm3 RBC 2.15 L (3.98-5.22) M/mm3 Hgb 7.8 L (11.2-15.7) gm/dl Hct 25.0 L (34.1-44.9) % MCV 116.3 H (79.4-94.8) fl MCH 36.3 H (25.6-32.2) pg MCHC 31.2 L (32.2-35.5) g/dl RDW Std Deviation 80.1 H (36.4-46.3) fL Plt Count 201 (182-369) K/mm3 MPV 10.5 (9.4-12.3) fl Neut % (Auto) 82.0 H (34.0-71.1) % Lymph % (Auto) 5.7 L (19.3-51.7) % [place] % (Auto) 11.3 (4.7-12.5) % Eos % (Auto) 0.4 L (0.7-5.8) Baso % (Auto) 0.2 (0.1-1.2) % Neut # (Auto) 6.67 H (1.56-6.13) K/mm3 Lymph # (Auto) 0.46 L (1.18-3.74) K/mm3 [place] # (Auto) 0.92 H (0.24-0.36) K/mm3 Eos # (Auto) 0.03 L (0.04-0.36) K/mm3 Baso # (Auto) 0.02 (0.01-0.08) K/mm3 Manual Slide Review Abnormal smear Sodium (136-145) mEq/L Potassium (3.5-5.1) mEq/L Chloride (98-107) mEq/L Carbon Dioxide (21-32) mEq/L Anion Gap (5-15) BUN (7-18) mg/dL Creatinine (0.55-1.02) mg/dL Est Cr Clr Drug Dosing mL/min Estimated GFR (MDRD) (>60) mL/min BUN/Creatinine Ratio (14-18) Glucose (70-99) mg/dL Calcium (8.5-10.1) mg/dL Magnesium 1.4 L (1.8-2.4) mg/dL 04/08/21 04/08/21 Range/Units 06:02 06:02 WBC (3.98-10.04) K/mm3 RBC (3.98-5.22) M/mm3 Hgb (11.2-15.7) gm/dl Hct (34.1-44.9) % MCV (79.4-94.8) fl MCH (25.6-32.2) pg MCHC (32.2-35.5) g/dl RDW Std Deviation (36.4-46.3) fL Plt Count (182-369) K/mm3 MPV (9.4-12.3) fl Neut % (Auto) (34.0-71.1) % Lymph % (Auto) (19.3-51.7) % [place] % (Auto) (4.7-12.5) % Eos % (Auto) (0.7-5.8) Baso % (Auto) (0.1-1.2) % Neut # (Auto) (1.56-6.13) K/mm3 Lymph # (Auto) (1.18-3.74) K/mm3 [place] # (Auto) (0.24-0.36) K/mm3 Eos # (Auto) (0.04-0.36) K/mm3 Baso # (Auto) (0.01-0.08) K/mm3 Manual Slide Review Sodium 141 (136-145) mEq/L Potassium 4.4 (3.5-5.1) mEq/L Chloride 105 (98-107) mEq/L Carbon Dioxide 28 (21-32) mEq/L Anion Gap 12.4 (5-15) BUN 18 (7-18) mg/dL Creatinine 1.2 H (0.55-1.02) mg/dL Est Cr Clr Drug Dosing 30.14 mL/min Estimated GFR (MDRD) 43 (>60) mL/min BUN/Creatinine Ratio 15.0 (14-18) Glucose 134 H (70-99) mg/dL Calcium 8.5 (8.5-10.1) mg/dL Magnesium 1.8 (1.8-2.4) mg/dL Result Diagrams: 04/08/21 06:02 04/08/21 06:02 Tod Results Last 24 hrs: Microbiology 04/06/21 11:04 Aerobic Blood Culture - Preliminary Blood - Venous - Lab Draw Gram Positive Cocci Anaerobic Blood Culture - Preliminary NO GROWTH AFTER 1 DAY 04/06/21 10:53 Aerobic Blood Culture - Preliminary Blood - Venous NO GROWTH AFTER 1 DAY Anaerobic Blood Culture - Preliminary NO GROWTH AFTER 1 DAY Sepsis Event Note - Evaluation Sepsis Screening Result: No Definite Risk - Focused Exam Vital Signs: Vital Signs Temp Pulse Resp BP Pulse Ox 04/08/21 04:03 97.9 F 62 16 144/61 H 90 L 04/08/21 00:20 97.5 F 63 20 125/89 92 L 04/07/21 19:56 97.5 F 65 20 143/67 H 94 L - Problem List & Annotations (1) History of atrial fibrillation SNOMED Code(s): 228561063 Code(s): Z86.79 - PERSONAL HISTORY OF OTHER DISEASES OF THE CIRCULATORY SYSTEM Status: Chronic Priority: Medium Current Visit: Yes (2) Bronchitis SNOMED Code(s): 05464347 Code(s): J40 - BRONCHITIS, NOT SPECIFIED ACUTE OR CHRONIC Status: Acute Priority: High Current Visit: Yes (3) Acute febrile illness SNOMED Code(s): 303048071 Code(s): R50.9 - FEVER, UNSPECIFIED Status: Resolved Priority: High Current Visit: Yes (4) Chronic congestive heart failure SNOMED Code(s): 56861406 Code(s): I50.9 - HEART FAILURE, UNSPECIFIED Status: Chronic Priority: Low Current Visit: No Qualifiers: Heart failure type: unspecified Qualified Code(s): I50.9 - Heart failure, unspecified (5) Lung cancer, primary, with metastasis from lung to other site SNOMED Code(s): 31318112, 522049029 Code(s): C34.90 - MALIGNANT NEOPLASM OF UNSP PART OF UNSP BRONCHUS OR LUNG Status: Chronic Priority: Medium Current Visit: No Qualifiers: Laterality: right Qualified Code(s): C34.91 - Malignant neoplasm of unspecified part of right bronchus or lung (6) Anemia SNOMED Code(s): 119701559 Code(s): D64.9 - ANEMIA, UNSPECIFIED Status: Acute Priority: High Curr ent Visit: Yes Qualifiers: Anemia type: due to chronic kidney disease Chronic kidney disease stage: stage 3 (moderate) Chronic kidney disease stage 3 subtype: stage 3b (GFR 30- 44) Qualified Code(s): N18.32 - Chronic kidney disease, stage 3b; D63.1 - Anemia in chronic kidney disease (7) CAD (coronary artery disease) SNOMED Code(s): 98218268 Code(s): I25.10 - ATHSCL HEART DISEASE OF [place] CORONARY ARTERY W/O ANG PCTRS Status: Chronic Priority: Medium Current Visit: No Qualifiers: Coronary Disease-Associated Artery/Lesion type: [place] artery [place] vs. transplanted heart: [place] heart Associated angina: unspecified whether angina present Qualified Code(s): I25.10 - Atherosclerotic heart disease of [place] coronary artery without angina pectoris Annotation/Comment:: Follow serial troponins. continue ASA, Statin, beta eveline when possible. (8) Pacemaker SNOMED Code(s): 978041362 Code(s): Z95.0 - PRESENCE OF CARDIAC PACEMAKER Status: Chronic Priority: Medium Current Visit: No (9) Chronic renal insufficiency, stage III (moderate) SNOMED Code(s): 520216232 Code(s): N18.30 - CHRONIC KIDNEY DISEASE, STAGE 3 UNSPECIFIED Status: Chronic Priority: Medium Current Visit: No Qualifiers: Chronic kidney disease stage 3 subtype: stage 3b (GFR 30-44) Qualified Code(s): N18.32 - Chronic kidney disease, stage 3b (10) Congestive heart failure SNOMED Code(s): 48900258 Code(s): I50.9 - HEART FAILURE, UNSPECIFIED Status: Chronic Priority: Medium Current Visit: No Annotation/Comment:: Acute on chronic (11) Diabetes mellitus SNOMED Code(s): 62117050 Code(s): E11.9 - TYPE 2 DIABETES MELLITUS WITHOUT COMPLICATIONS Status: Chronic Priority: Medium Current Visit: No Qualifiers: Diabetes mellitus type: type 2 Diabetes mellitus long term care administrator insulin use: without mcc use Diabetes mellitus complication status: with neurologic complications Diabetes mellitus complication detail: with mononeuropathy Qualified Code(s): E11.41 - Type 2 diabetes mellitus with diabetic mononeuropathy (12) Hypothyroidism SNOMED Code(s): 04371480 Code(s): E03.9 - HYPOTHYROIDISM, UNSPECIFIED Status: Chronic Priority: Low Current Visit: No Qualifiers: Hypothyroidism type: unspecified Qualified Code(s): E03.9 - Hypothyroidism, unspecified (13) Metastatic adenocarcinoma to brain SNOMED Code(s): 588262723, 940122564 Code(s): C79.31 - SECONDARY MALIGNANT NEOPLASM OF BRAIN Status: Chronic Priority: Medium Current Visit: No (14) Hypokalemia SNOMED Code(s): 91704898 Code(s): E87.6 - HYPOKALEMIA Status: Acute Priority: High Current Visit: Yes (15) Port-A-Cath in place SNOMED Code(s): 591025923 Code(s): Z95.828 - PRESENCE OF OTHER VASCULAR IMPLANTS AND GRAFTS Status: Chronic Priority: Medium Current Visit: Yes (16) Hypomagnesemia SNOMED Code(s): 691723385 Code(s): E83.42 - HYPOMAGNESEMIA Status: Acute Priority: High Current Visit: Yes - Problem List Review Problem List Initiated/Reviewed/Updated: Yes - My Orders Last 24 Hours: My Active Orders 04/07/21 09:48 Consult to Case Management/[place] Customs And Border Officer [CONS] Routine 04/07/21 09:49 Consult to Respiratory Therapy [Respiratory Care Assess and Treatment] [CONS] Routine 04/07/21 10:28 Resuscitation Status Routine 04/07/21 10:53 Renew/Continue Central Line Access [OM.PC] Routine 04/09/21 05:11 MAGNESIUM [CHEM] AM 04/10/21 05:11 MAGNESIUM [CHEM] AM 04/11/21 05:11 MAGNESIUM [CHEM] AM - Assessment Assessment:: 04/07/2021 This is an 85-year-old female presents to ED on 04-06-2021 with reports of fever, rigor, and chills. Patient does carry history of lung cancer with partial lobectomy and metastasis to contralateral lung and brain. She is currently not undergoing any treatment for this. She does have a pacemaker and a port in place. Chest x-ray on admission was essentially stable from prior chest x-rays. She has had stable labs and no fevers demonstrated while here. She is chronically on 2 L of oxygen and resides at [facility]. She has been requi ring 3 L while here. Today we did have a lengthy discussion about her overall prognosis and plan of care. Her goal is to someday return to [facility], however PT and OT here continue to recommend SNF placement. She is been admitted to the hospital 3 times in the past month for CHF exacerbations and gout attacks. We are currently treating her for bronchitis versus early pneumonia. MRSA screen was negative so we will discontinue vancomycin and continue the cefepime. Patient and daughter at bedside report that she did see hospice for consult a few weeks ago while at [facility], but has not been formally enrolled in their program. She said her primary care provider Dr. Andrews has advised them that they should look into this. We again discussed it and case management/social work are working with her on this. At this time it does not appear that she is ready for formal admission to the program. She does however note that she is getting tired of regularly coming to the hospital. Otherwise she continues to look okay and states she feels pretty good. Her potassium was low today and will be supplemented. Her hemoglobin was low we will watch this and transfuse if necessary. Plan for discharge in the next 24 to 48 hours on p.o. antibiotic. Overall prognosis is very poor. She also remains a very high readmission risk. 04/08/2021 85-year-old female admitted for pneumonia. She does have a history of lung cancer with mets to contralateral lung and brain. Today her oxygen need is down to 2 L which is her baseline. She reports she feels good. She did have one episode of vomiting overnight however this is likely due to her p.m. dose of oral potassium she received. Labs today WBC is 8.13. Hemoglobin is improved to 7.8. Neutrophils are 82%. Sodium 141. Potassium 4.4. Chloride 105. Carbon oxide 28. Anion gap 12.4. BUN is 18. Creatinine 1.2. GFR 43. Magnesium is 1.8. We will start 400 mg daily p.o. magnesium as she is on the low end of normal. Fluids were discontinued. Did discuss her Eliquis with pharmacy. In reviewing prior labs patient does tend to however around a baseline creatinine of 1.5 or higher. She is also 85 years old. We will leave the dosing at 2.5 mg twice daily. PCP may adjust this in the future. Patient did have 1 out of 4 blood cultures returned positive for gram-positive cocci. This may be a contaminant. Microbiology department is going to review this and should have a preliminary report for us this afternoon. We will repeat blood cultures if necessary. No fevers or signs of worsening infection. Hopeful for discharge back to [facility] tomorrow pending continued stability and blood culture results. Patient's daughter Yelena was updated at request of patient via phone call. - Plan Plan:: 85-year-old female with a past medical history as listed above who presented to the [facility] emergency department with subjective history of fever, rigors and cough starting within the past 36 hours. 1. Subjective fever with possible developing bronchitis and/or pneumonia. Will admit to the hospitalist service for further observation and management. Vitals and examination otherwise reassuring. Labs also reassuring at this time. Continue empiric antibiotics with cefepime for now as she was recently admitted to the hospital for congestive heart failure in late February. MRSA swab negative - discontinue Vancomycin Monitor volume status. Sputum sample for culture and sensitivities. Blood cultures 1/4 positive for gram positive cocci - ? contamination 2. Atrial fibrillation on systemic anticoagulation. We will downgrade her Eliquis dose to 2.5 mg twice daily considering baseline serum creatine appears >1.5 and is greater than 80 years old. Continue home cardiac medications at regular dose otherwise. 3. History of metastatic lung cancer with spread of disease to contralateral lung and brain. No longer receiving therapy. Follow with PCP regarding further plans as well as oncology. 4. Type 2 diabetes mellitus. Patient still carbohydrate counts. We will place her on the an ADA diet as she still treats her self. May eat a regular diet otherwise if she really wants to. Continue home insulin regimen. Invoke hospital hyperglycemia protocol if necessary. 5. Hypothyroidism. Continue daily synthetic hormone replacement. 6. History of chronic congestive heart failure; otherwise unspecified as ejection fraction unknown. Monitor volume status. Continue cardiac maintenance therapies. 7. History of gout. Continue maintenance therapy with colchicine. Continue allopurinol 8. History of coronary artery disease. Continue statin and all home cardiac medications at regular dose. Nitroglycerin as needed for chest pain. 9. History of hypertension. Continue home cardiac medications at regular dose. 10. CKD stage III. Avoid nephrotoxins. Intermittent check of labs. Replace electrolytes as necessary. 11. Anemia. Acute on chronic Monitor labs and transfuse if Hgb <7.0 12. Hypokalemia Supplement Re-check AM labs 13. Positive blood culture / bottles - gram positive cocci ? contaminant Lab will check micro this afternoon and let us know their interpretation Consider repeat blood cultures 14. Hypomagnesemia 1gm supplemented on 04/07/2021 Start 400mg daily supplementation CODE STATUS: DNR/DNI DVT prophylaxis; on systemic anticoagulation with Eliquis. <Luis Alfredo Banda Jr - Last Filed: 04/08/21 17:50> - Patient Data Vitals - Most Recent: Last Vital Signs Temp 97.9 F 04/08/21 16:10 Pulse 62 04/08/21 16:10 Resp 14 04/08/21 16:10 BP 152/75 H 04/08/21 16:10 Pulse Ox 95 04/08/21 16:10 I&O - Last 24 Hours: Intake & Output 04/08/21 04/08/21 04/08/21 06:59 14:59 22:59 Intake Total 900 0 780 Output Total 1000 550 Balance -100 0 230 Lab Results Last 24 Hours: Laboratory Results - last 24 hr 04/08/21 04/08/21 04/08/21 Range/Units 06:02 06:02 06:02 WBC 8.13 (3.98-10.04) K/mm3 RBC 2.15 L (3.98-5.22) M/mm3 Hgb 7.8 L (11.2-15.7) gm/dl Hct 25.0 L (34.1-44.9) % MCV 116.3 H (79.4-94.8) fl MCH 36.3 H (25.6-32.2) pg MCHC 31.2 L (32.2-35.5) g/dl RDW Std Deviation 80.1 H (36.4-46.3) fL Plt Count 201 (182-369) K/mm3 MPV 10.5 (9.4-12.3) fl Neut % (Auto) 82.0 H (34.0-71.1) % Lymph % (Auto) 5.7 L (19.3-51.7) % [place] % (Auto) 11.3 (4.7-12.5) % Eos % (Auto) 0.4 L (0.7-5.8) Baso % (Auto) 0.2 (0.1-1.2) % Neut # (Auto) 6.67 H (1.56-6.13) K/mm3 Lymph # (Auto) 0.46 L (1.18-3.74) K/mm3 [place] # (Auto) 0.92 H (0.24-0.36) K/mm3 Eos # (Auto) 0.03 L (0.04-0.36) K/mm3 Baso # (Auto) 0.02 (0.01-0.08) K/mm3 Manual Slide Review Abnormal smear Sodium 141 (136-145) mEq/L Potassium 4.4 (3.5-5.1) mEq/L Chloride 105 (98-107) mEq/L Carbon Dioxide 28 (21-32) mEq/L Anion Gap 12.4 (5-15) BUN 18 (7-18) mg/dL Creatinine 1.2 H (0.55-1.02) mg/dL Est Cr Clr Drug Dosing 30.14 mL/min Estimated GFR (MDRD) 43 (>60) mL/min BUN/Creatinine Ratio 15.0 (14-18) Glucose 134 H (70-99) mg/dL Calcium 8.5 (8.5-10.1) mg/dL Magnesium 1.8 (1.8-2.4) mg/dL Tod Results Last 24 Hours: Microbiology 04/06/21 11:04 Aerobic Blood Culture - Preliminary Blood - Venous - Lab Draw Gram Positive Cocci Anaerobic Blood Culture - Preliminary NO GROWTH AFTER 2 DAYS 04/06/21 10:53 Aerobic Blood Culture - Preliminary Blood - Venous NO GROWTH AFTER 2 DAYS Anaerobic Blood Culture - Preliminary NO GROWTH AFTER 2 DAYS Med Orders - Current: Current Medications Acetaminophen (Acetaminophen 325 Mg Tab) 650 mg PO Q4H PRN PRN Reason: Pain Last Admin: 04/07/21 20:31 Dose: 650 mg Documented by: Albuterol/Ipratropium (Albuterol/Ipratropium 3.0-0.5 Mg/3 Ml Neb Soln) 3 ml NEB Q4H PRN PRN Reason: Shortness Of Breath/wheezing Allopurinol (Allopurinol 300 Mg Tab) 150 mg PO DAILY LUCIO Last Admin: 04/08/21 08:30 Dose: 150 mg Documented by: Apixaban (Apixaban 2.5 Mg Tab) 2.5 mg PO BID [facility] Last Admin: 04/08/21 11:13 Dose: 2.5 mg Documented by: Atorvastatin Calcium (Atorvastatin 40 Mg Tab) 40 mg PO BEDTIME [facility] Last Admin: 04/07/21 20:31 Dose: 40 mg Documented by: Bisacodyl (Bisacodyl 5 Mg Tab) 10 mg PO DAILY PRN PRN Reason: Constipation Cholecalciferol (Cholecalciferol (Vitamin D3) 25 Mcg Tab) 50 mcg PO DAILY [facility] Last Admin: 04/08/21 08:29 Dose: 50 mcg Documented by: Colchicine (Colchicine 0.6 Mg Tab) 0.3 mg PO DAILY PRN PRN Reason: Other Last Admin: 04/07/21 20:29 Dose: 0.3 mg Documented by: Folic Acid (Folic Acid 1 Mg Tab) 1 mg PO DAILY [facility] Last Admin: 04/08/21 08:30 Dose: 1 mg Documented by: Furosemide (Furosemide 40 Mg Tab) 40 mg PO DAILY [facility] Last Admin: 04/08/21 08:31 Dose: 40 mg Documented by: Cefepime HCl 1 gm/ Sodium (Chloride) 50 mls @ 100 mls/hr IV Q24H [facility] Last Admin: 04/07/21 20:29 Dose: 100 mls/hr Documented by: Insulin Glargine (Insulin Glarg,Human.Rec.Analog 100 Unit/Ml) 13 unit SUBCUT DAILY [facility] Last Admin: 04/08/21 08:33 Dose: 13 units Documented by: Latanoprost (Latanoprost 0.005% Ophth Soln 2.5 Ml Bottle) 0 ml EYEBOTH BEDTIME [facility] Last Admin: 04/07/21 20:32 Dose: 1 drop Documented by: Levothyroxine Sodium (Levothyroxine 75 Mcg Tab) 75 mcg PO ACBREAKFAST [facility] Last Admin: 04/08/21 05:07 Dose: 75 mcg Documented by: Lisinopril (Lisinopril 20 Mg Tab) 40 mg PO DAILY [facility] Last Admin: 04/08/21 08:30 Dose: 40 mg Documented by: Magnesium Oxide (Magnesium Oxide 400 Mg Tab) 400 mg PO DAILY [facility] Last Admin: 04/08/21 11:13 Dose: 400 mg Documented by: Metoprolol Succinate (Metoprolol Succinate 50 Mg Tab.Er) 100 mg PO DAILY [facility] Last Admin: 04/08/21 08:29 Dose: 100 mg Documented by: Nitroglycerin (Nitroglycerin 0.4 Mg Tab.Sl) 0.4 mg SL ASDIRECTED PRN PRN Reason: Chest Pain Ondansetron HCl (Ondansetron 4 Mg/2 Ml Sdv) 4 mg IVPUSH Q4HR PRN PRN Reason: Nausea Last Admin: 04/08/21 14:30 Dose: 4 mg Documented by: Psyllium Husk (Psyllium Husk Powder Sugar Free 5.85 Gm Packet) 1 pkt PO BID [facility] Last Admin: 04/08/21 08:32 Dose: 1 pkt Documented by: Senna (Sennosides 8.6 Mg Tab) 17.2 mg PO DAILY [facility] Last Admin: 04/08/21 08:29 Dose: 17.2 mg Documented by: Tramadol HCl (Tramadol 50 Mg Tab) 50 mg PO Q6H PRN PRN Reason: Pain Last Admin: 04/08/21 17:11 Dose: 50 mg Documented by: Discontinued Medications Acetaminophen (Acetaminophen 325 Mg Tab) 650 mg PO ONETIME ONE Stop: 04/06/21 10:32 Last Admin: 04/06/21 10:51 Dose: 650 mg Documented by: Albuterol/Ipratropium (Albuterol/Ipratropium 3.0-0.5 Mg/3 Ml Neb Soln) 3 ml NEB Q4H PRN PRN Reason: Shortness Of Breath/wheezing Last Admin: 04/06/21 11:11 Dose: 3 ml Documented by: Apixaban (Apixaban 5 Mg Tab) 5 mg PO BID [facility] Furosemide (Furosemide 40 Mg/4 Ml Vial) 60 mg IVPUSH NOW ONE Stop: 04/06/21 11:10 Last Admin: 04/06/21 12:22 Dose: 60 mg Documented by: Sodium Chloride (Normal Saline) 1,000 mls @ 75 mls/hr IV ASDIRECTED [facility] Last Admin: 04/07/21 04:49 Dose: 75 mls/hr Documented by: Ceftriaxone Sodium 2 gm/ (Sodium Chloride) 100 mls @ 200 mls/hr IV ONETIME ONE Stop: 04/06/21 12:02 Last Admin: 04/06/21 12:23 Dose: 200 mls/hr Documented by: Vancomycin HCl 1 gm/ Sodium (Chloride) 250 mls @ 250 mls/hr IV Q24H [facility] Last Admin: 04/06/21 14:47 Dose: 250 mls/hr Documented by: Magnesium Sulfate 2 gm/ Premix 50 mls @ 25 mls/hr IV ONETIME ONE Stop: 04/07/21 14:44 Last Admin: 04/07/21 13:39 Dose: 25 mls/hr Documented by: Metoclopramide HCl (Metoclopramide 10 Mg/2 Ml Sdv) 5 mg IVPUSH ONETIME ONE Stop: 04/06/21 10:32 Last Admin: 04/06/21 10:50 Dose: 5 mg Documented by: Ondansetron HCl (Ondansetron 4 Mg/2 Ml Sdv) Confirm Administered Dose 4 mg .ROUTE .STK-MED ONE Stop: 04/08/21 03:44 Last Admin: 04/08/21 05:00 Dose: Not Given Documented by: Potassium Chloride (Potassium Chloride 20 Meq Tab.Er) 40 meq PO BID LUCIO Stop: 04/07/21 21:01 Last Admin: 04/07/21 20:31 Dose: 40 meq Documented by: Vancomycin HCl (Pharmacy To Dose - Vancomycin) 1 dose .XX ASDIRECTED PRN PRN Reason: RX TO DOSE VANCO - Patient Data Lab Results Last 24 hrs: Laboratory Results - last 24 hr 04/08/21 04/08/21 04/08/21 Range/Units 06:02 06:02 06:02 WBC 8.13 (3.98-10.04) K/mm3 RBC 2.15 L (3.98-5.22) M/mm3 Hgb 7.8 L (11.2-15.7) gm/dl Hct 25.0 L (34.1-44.9) % MCV 116.3 H (79.4-94.8) fl MCH 36.3 H (25.6-32.2) pg MCHC 31.2 L (32.2-35.5) g/dl RDW Std Deviation 80.1 H (36.4-46.3) fL Plt Count 201 (182-369) K/mm3 MPV 10.5 (9.4-12.3) fl Neut % (Auto) 82.0 H (34.0-71.1) % Lymph % (Auto) 5.7 L (19.3-51.7) % Miner % (Auto) 11.3 (4.7-12.5) % Eos % (Auto) 0.4 L (0.7-5.8) Baso % (Auto) 0.2 (0.1-1.2) % Neut # (Auto) 6.67 H (1.56-6.13) K/mm3 Lymph # (Auto) 0.46 L (1.18-3.74) K/mm3 Miner # (Auto) 0.92 H (0.24-0.36) K/mm3 Eos # (Auto) 0.03 L (0.04-0.36) K/mm3 Baso # (Auto) 0.02 (0.01-0.08) K/mm3 Manual Slide Review Abnormal smear Sodium 141 (136-145) mEq/L Potassium 4.4 (3.5-5.1) mEq/L Chloride 105 (98-107) mEq/L Carbon Dioxide 28 (21-32) mEq/L Anion Gap 12.4 (5-15) BUN 18 (7-18) mg/dL Creatinine 1.2 H (0.55-1.02) mg/dL Est Cr Clr Drug Dosing 30.14 mL/min Estimated GFR (MDRD) 43 (>60) mL/min BUN/Creatinine Ratio 15.0 (14-18) Glucose 134 H (70-99) mg/dL Calcium 8.5 (8.5-10.1) mg/dL Magnesium 1.8 (1.8-2.4) mg/dL Result Diagrams: 04/08/21 06:02 04/08/21 06:02 Tod Results Last 24 hrs: Microbiology 04/06/21 11:04 Aerobic Blood Culture - Preliminary Blood - Venous - Lab Draw Gram Positive Cocci Anaerobic Blood Culture - Preliminary NO GROWTH AFTER 2 DAYS 04/06/21 10:53 Aerobic Blood Culture - Preliminary Blood - Venous NO GROWTH AFTER 2 DAYS Anaerobic Blood Culture - Preliminary NO GROWTH AFTER 2 DAYS Sepsis Event Note - Focused Exam Vital Signs: Vital Signs Temp Pulse Resp BP Pulse Ox Pulse Ox 04/08/21 16:10 97.9 F 62 14 152/75 H 95 04/08/21 11:52 59 L 90 L 04/08/21 11:51 98.1 F 65 20 141/99 H 90 L 04/08/21 10:21 92 L 04/08/21 08:30 115/58 L 04/08/21 08:29 96 115/58 L 04/08/21 08:06 97.2 F 96 16 115/58 L 94 L - My Orders Last 24 Hours: My Active Orders 04/08/21 03:40 Ondansetron [Zofran] 4 mg IVPUSH Q4HR PRN 04/08/21 14:22 Renew/Continue Central Line Access [OM.PC] Routine 04/09/21 06:00 BASIC METABOLIC PANEL,BMP [CHEM] DAILY CBC WITH AUTO DIFF [HEME] DAILY 04/10/21 06:00 BASIC METABOLIC PANEL,BMP [CHEM] DAILY CBC WITH AUTO DIFF [HEME] DAILY 04/11/21 06:00 BASIC METABOLIC PANEL,BMP [CHEM] DAILY CBC WITH AUTO DIFF [HEME] DAILY - Plan Plan:: Case discussed in full. Agree with evaluation, assessment and plan.
[2021-04-08] MEDS: Sennosides 8.6 MG Tab PO SCH (08:29)
[2021-04-08] MEDS: Cholecalciferol (Vitamin D3) 25 MCG Tab PO SCH (08:29)
[2021-04-08] MEDS: Metoprolol Succinate 50 MG Tab.ER PO SCH (08:29)
[2021-04-08] MEDS: Folic Acid 1 MG Tab PO SCH (08:30)
[2021-04-08] MEDS: Allopurinol 300 MG Tab PO SCH (08:30)
[2021-04-08] MEDS: Lisinopril 20 MG Tab PO SCH (08:30)
[2021-04-08] MEDS: Furosemide 40 MG Tab PO SCH (08:31)
[2021-04-08] MEDS: Psyllium Husk Powder Sugar Free 5.85 GM Packet PO SCH ×2 (08:32→20:42)
[2021-04-08] MEDS: Insulin Glarg,Human.Rec.Analog 100 Unit/ML SUBCUT SCH (08:33)
[2021-04-08] MEDS: Apixaban 2.5 MG Tab PO SCH ×2 (11:13→20:42)
[2021-04-08] MEDS: Magnesium Oxide 400 MG Tab PO SCH (11:13)
[2021-04-08] MEDS: traMADol 50 MG Tab PO PRN (17:11)
[2021-04-08] MEDS: Latanoprost 0.005% Ophth Soln 2.5 ML Bottle EYEBOTH SCH (20:42)
[2021-04-08] MEDS: Acetaminophen 325 MG Tab PO PRN (20:43)
[2021-04-08] MEDS: atorvaSTATin 40 MG Tab PO SCH (20:43)
[2021-04-08] MEDS: Cefepime 1 GM in Sodium Chloride 0.9% 50 ML IV SCH (20:45)
[2021-04-09] MEDS: Levothyroxine 75 MCG Tab PO SCH (05:27)
--- NOTE | 2021-04-09 08:18 | PCM.DCSUM1 ---
<Mihir Amador - Last Filed: 04/09/21 12:01> Discharge Summary - Hospital Course HPI Initial Comments: Patient is an 85-year-old female with a past medical history as listed below who presents to the [facility] emergency department with her [address] [facility] with a chief complaint of cough, subjective fever, and rigors starting last night. According to the patient's own history supplemented by one of her daughters, she was doing okay up until about 36 hours ago when they started 10 notice a nagging cough. This will cough was productive for some discolored sputum which was mostly yellow. She did not have a fever until last night. She developed significant rigors early in the morning which was noted by a third daughter who is not present. This was also noted by staff. She was also appearing weak and mildly toxic. For this reason she was transported to the hospital for further evaluation. Since presenting to the ER her vital signs have been relatively reassuring. A fever had not been measured. Blood pressure was adequate. Patient was not in any respiratory distress and was breathing less than or equal to 20 breaths/min. She was not tachycardic. She appeared weak and slightly toxic however. Patient has a history of metastatic lung cancer status post lobectomy on the right lower, with metastatic disease to the contralateral lung and to the brain. She is no longer receiving treatment. Last chemotherapy infusion was a month and a half ago. Patient does not endorse any specific complaints other than feeling tired and rundown. She is sick of her cough which is causing some posttussive chest discomfort. She denies any chest pain, chest pressure or pleurisy. Denies fever currently. Feels shaky and cold. Denies any nausea/vomiting or abdominal complaints. Denies any difficulties with voiding. Chest x-ray notable for persistent right lower lobe effusion due to lobectomy. No otherwise dense infiltrates that are new. She has chronic interstitial changes as well as those associated with metastatic disease and chronic congestive heart failure. No overt change. Patient was given empiric antibiotics and then referred to the internal medicine service for admission. A 14 point review of systems was reviewed with the patient and her 2 daughters were present and only pertinent for the above information. CODE STATUS: Full code without prolonged measures. Diagnosis: Stroke: No - Discharge Data Discharge Date: 04/09/21 (Admit date: 04/06/2021) Discharge Disposition: DC/Tfer to SNF 03 Condition: Good - Referral to Home Health Primary Care Physician: Bright Koenig MD - Discharge Diagnosis/Problem(s) (1) History of atrial fibrillation SNOMED Code(s): 111419848 ICD Code: Z86.79 - PERSONAL HISTORY OF OTHER DISEASES OF THE CIRCULATORY SYSTEM Status: Chronic Priority: Medium (2) Bronchitis SNOMED Code(s): 27141312 ICD Code: J40 - BRONCHITIS, NOT SPECIFIED ACUTE OR CHRONIC Status: Acute Priority: High (3) Acute febrile illness SNOMED Code(s): 257120039 ICD Code: R50.9 - FEVER, UNSPECIFIED Status: Resolved Priority: High (4) Chronic congestive heart failure SNOMED Code(s): 07034653 ICD Code: I50.9 - HEART FAILURE, UNSPECIFIED Status: Chronic Priority: Lo w Qualifiers: Heart failure type: unspecified Qualified Code(s): I50.9 - Heart failure, unspecified (5) Lung cancer, primary, with metastasis from lung to other site SNOMED Code(s): 99014413, 016123906 ICD Code: C34.90 - MALIGNANT NEOPLASM OF UNSP PART OF UNSP BRONCHUS OR LUNG Status: Chronic Priority: Medium Qualifiers: Laterality: right Qualified Code(s): C34.91 - Malignant neoplasm of unspecified part of right bronchus or lung (6) Anemia SNOMED Code(s): 429718305 ICD Code: D64.9 - ANEMIA, UNSPECIFIED Status: Acute Priority: High Qualifiers: Anemia type: due to chronic kidney disease Chronic kidney disease stage: stage 3 (moderate) Chronic kidney disease stage 3 subtype: stage 3b (GFR 30- 44) Qualified Code(s): N18.32 - Chronic kidney disease, stage 3b; D63.1 - Anemia in chronic kidney disease (7) CAD (coronary artery disease) SNOMED Code(s): 75377020 ICD Code: I25.10 - ATHSCL HEART DISEASE OF [place] CORONARY ARTERY W/O ANG PCTRS Status: Chronic Priority: Medium Problem Details: Follow serial troponins. continue ASA, Statin, beta eveline when possible. Qualifiers: Coronary Disease-Associated Artery/Lesion type: [place] artery [place] vs. transplanted heart: [place] heart Associated angina: unspecified whether angina present Qualified Code(s): I25.10 - Atherosclerotic heart disease of [place] coronary artery without angina pectoris (8) Pacemaker SNOMED Code(s): 194504118 ICD Code: Z95.0 - PRESENCE OF CARDIAC PACEMAKER Status: Chronic Priority: Medium (9) Chronic renal insufficiency, stage III (moderate) SNOMED Code(s): 518700172 ICD Code: N18.30 - CHRONIC KIDNEY DISEASE, STAGE 3 UNSPECIFIED Status: Chronic Priority: Medium Qualifiers: Chronic kidney disease stage 3 subtype: stage 3b (GFR 30-44) Qualified Code(s): N18.32 - Chronic kidney disease, stage 3b (10) Congestive heart failure SNOMED Code(s): 02112585 ICD Code: I50.9 - HEART FAILURE, UNSPECIFIED Status: Chronic Priority: Medium Problem Details: Acute on chronic (11) Diabetes mellitus SNOMED Code(s): 58638494 ICD Code: E11.9 - TYPE 2 DIABETES MELLITUS WITHOUT COMPLICATIONS Status: Chronic Priority: Medium Qualifiers: Diabetes mellitus type: type 2 Diabetes mellitus termite renewal inspector insulin use: without termite renewal inspector use Diabetes mellitus complication status: with neurologic complications Diabetes mellitus complication detail: with mononeuropathy Qualified Code(s): E11.41 - Type 2 diabetes mellitus with diabetic mononeuropathy (12) Hypothyroidism SNOMED Code(s): 31530765 ICD Code: E03.9 - HYPOTHYROIDISM, UNSPECIFIED Status: Chronic Priority: Low Qualifiers: Hypothyroidism type: unspecified Qualified Code(s): E03.9 - Hypothyroidism, unspecified (13) Metastatic adenocarcinoma to brain SNOMED Code(s): 756659625, 974659290 ICD Code: C79.31 - SECONDARY MALIGNANT NEOPLASM OF BRAIN Status: Chronic Priority: Medium (14) Hypokalemia SNOMED Code(s): 44092104 ICD Code: E87.6 - HYPOKALEMIA Status: Acute Priority: High (15) Port-A-Cath in place SNOMED Code(s): 891074002 ICD Code: Z95.828 - PRESENCE OF OTHER VASCULAR IMPLANTS AND GRAFTS Status: Chronic Priority: Medium (16) Hypomagnesemia SNOMED Code(s): 990628572 ICD Code: E83.42 - HYPOMAGNESEMIA Status: Acute Priority: High - Patient Summary/Data Consults: Consultations 04/06/21 13:07 OT Evaluation and Treatment [CONS] Routine PT Evaluation and Treatment [CONS] Routine 04/07/21 09:48 Consult to Case Management/Umbrella Repairer [CONS] Routine 04/07/21 09:49 Consult to Respiratory Therapy [Respiratory Care Assess and Treatment] [CONS] Routine Labs Pending at D/C: None Recommended Follow-up Testing/Procedures: Follow-up with primary care provider within 7 to 10 days of discharge, sooner if needed. * Patient discharged on a 5-day course of p.o. magnesium supplementation. Please monitor if patient needs this longer. * Patient discharged on 7 days of every 12 hours cefdinir 300 mg. * Hemoglobin remained steady between 7 and 8. Please monitor this in the future. * We did discuss hospice. Patient reports that she is not interested at this time but would like hospice in the future as her symptoms worsen. Hospital Course: This is an 85-year-old female presents to ED on 04-06-2021 with reports of fever, rigor, and chills. Patient does carry history of lung cancer with partial lobectomy and metastasis to contralateral lung and brain. She is currently not undergoing any treatment for this. She does have a pacemaker and a port in place. Chest x-ray on admission was essentially stable from prior chest x-rays. She has had stable labs and no fevers demonstrated while here. She is chronically on 2 L of oxygen and resides at [facility]. She has been requiring 3 L while here. Throughout her stay we have had multiple lengthy discussions about her overall prognosis and plan of care. Her goal is to someday return to [facility], however PT and OT here continue to recommend SNF placement. She is been admitted to the hospital 3 times in the past month for CHF exacerbations and gout attacks. She was reportedly seeing Dr. Andrews prior to SNF placement and he recommended hospice consult, which was done at [place]. Patient still would like hospice down the road but this time is saying she is not ready. Family has been at bedside throughout her stay and heavily involved in her care. Patient is very aware of her poor overall prognosis. There was significant discussion about the patient's CODE STATUS as she is listed in prison paperwork is a DNR but was requesting full CODE STATUS while here. Ultimately patient agreed that she would like DNR/DNI status from here on out. Throughout her stay her oxygen need as bounced between 2 and 3 L. She is chronically on 2 L as noted prior and she should continue oxygen with goal saturations above 90. We did discuss how her saturations will likely continue to drop and her oxygen demand will increase as her cancer progresses. She was initially started on cefepime and vancomycin. Vancomycin was discontinued after MRSA screen returned negative. She has continued to do well throughout her stay and states she does feel better. She did have 1 out of 4 blood cultures returned positive for gram-positive cocci. Discussed this with microbiology and they are confident that this is a contaminant. Given the patient's lack of worsening symptoms, lack of fevers, and lack of laboratory evidence of worsening infection is felt this is likely the case. She will be discharged today on 7 more days of 300 mg twice daily cefepime. Her magnesium here has been low and has been supplemented on multiple occasions. We will discharge on 400 mg p.o. daily magnesium for 5 more days. Primary care provider should follow-up with this. Throughout her stay her renal function has been noted to be borderline. On several prior admissions her creatinine is noted to be around 1.5. Discussed with pharmacy and we will decrease patient's Eliquis to 2.5 mg twice daily at discharge. Primary care provider may increase this at their discretion, however it is felt her apparent baseline renal function falls into renal dosing criteria. She will be discharged on a as needed albuterol inhaler. All other home medications were continued. She was instructed to continue to utilize her incentive spirometry and Acapella for 1-2 more weeks, or until symptoms resolve. It was advised that she pursue hospice care after discharge. Recommend follow-up with primary care provider within 7 to 10 days of discharge, sooner if needed. Recommend repeat CBC, CMP, and magnesium at that appointment. Patient has been somewhat anemic here with a hemoglobin between 7 and 8. Please continue to monitor this. Also monitor patient's magnesium as mentioned prior. Discharge back to [facility] today. - Patient Instructions Diet: Diabetic Diet Activity: As Tolerated Driving: Do Not Drive Showering/Bathing: May Shower Notify Provider of: Fever, Increased Pain, Nausea and/or Vomiting Other/Special Instructions: Up with primary care provider within 7 to 10 days of discharge, sooner if needed. We continue to recommend hospice care after discharge. Continue to wear your oxygen. As we discussed your oxygen needs will likely continue to increase and this will need to be discussed with your primary care provider in the future as your dosing will likely need to increase. He was prescribed an antibiotic for your pneumonia. Please take this twice a day as prescribed. Take this until complete, even if you are feeling 100% better. Continue PT/OT at SNF. Should symptoms return or worsen contact your primary care provider return the emergency room. - Discharge Plan *PRESCRIPTION DRUG MONITORING PROGRAM REVIEWED*: Not Applicable *COPY OF PRESCRIPTION DRUG MONITORING REPORT IN PATIENT TOBY: Not Applicable Prescriptions/Med Rec: Albuterol Sulfate [Albuterol Sulfate HFA] 8.5 gm INH Q2H PRN #1 inhaler PRN Reason: SOB/Wheezing Cefdinir 300 mg PO Q12H #14 capsule Apixaban [Eliquis] 2.5 mg PO BID #40 tablet Magnesium Oxide 400 mg PO DAILY #5 tablet Home Medications: Home Meds Levothyroxine 75 mcg PO DAILY 12/10/15 [History] Lisinopril 40 mg PO DAILY 12/10/15 [History] Latanoprost 1 drop EYEBOTH BEDTIME 10/20/16 [History] Psyllium Husk [Metamucil] 1 tsp PO BID 07/30/17 [History] traMADol [Ultram] 50 mg PO Q6H PRN 03/17/18 [History] Cholecalciferol (Vitamin D3) [Vitamin D3] 2,000 units PO DAILY 12/30/18 [History] Nitroglycerin [Nitrostat] 0.4 mg PO ASDIRECTED PRN 09/24/20 [History] [place]-3/DHA/Epa/Fish Oil [[place] 3 500 Softgel] 1,000 mg PO BEDTIME 09/24/20 [History] Ondansetron [Zofran] 4 mg SL Q6H PRN 09/24/20 [History] atorvaSTATin [Lipitor] 40 mg PO BEDTIME 09/24/20 [History] Folic Acid 1 mg PO DAILY 03/08/21 [History] Insulin Glarg,Human.Rec.Analog [Lantus] 13 unit SUBCUT DAILY 03/08/21 [History] Metoprolol Succinate [Toprol Xl] 100 mg PO DAILY 30 Days #30 tab 03/09/21 [Rx] Acetaminophen [Tylenol 8 Hour] 650 mg PO Q4HR PRN 03/23/21 [History] Furosemide [Lasix] 40 mg PO DAILY #30 tablet 03/25/21 [Rx] Allopurinol [Zyloprim] 150 mg PO DAILY 04/06/21 [History] Colchicine 0.3 mg PO DAILY 04/06/21 [History] Prochlorperazine Maleate [Compazine] 10 mg PO QID PRN 04/06/21 [History] Sennosides [Senna] 2 tab PO BEDTIME 04/06/21 [History] bisacodyL [Dulcolax] 10 mg PO DAILY PRN 04/06/21 [History] Albuterol Sulfate [Albuterol Sulfate HFA] 8.5 gm INH Q2H PRN #1 inhaler 04/09/21 [Rx] Apixaban [Eliquis] 2.5 mg PO BID #40 tablet 04/09/21 [Rx] Cefdinir 300 mg PO Q12H #14 capsule 04/09/21 [Rx] Magnesium Oxide 400 mg PO DAILY #5 tablet 04/09/21 [Rx] Oxygen Therapy Mode: Nasal Cannula Oxygen Flow Rate (L/min): 2 (2-3L PRN) Maintain SpO2% greater than: 90 Patient Handouts: Fever, Adult, Pleural Effusion, Community-Acquired Pneumonia, Adult, [id number], Sepsis, Self Care, Adult Referrals: Bright Koenig MD [Primary Care Provider] - 04/16/21 4:30 pm (this will be a video call at prison.) - Discharge Summary/Plan Comment DC Time >30 min.: Yes (45 mins ) - General Info Date of Service: 04/09/21 Admission Dx/Problem (Free Text: Admission Diagnosis/Problem Admission Diagnosis/Problem Fever in adult Functional Status: Reports: Pain Controlled, Tolerating Diet, Ambulating, Uri nating, Incentive Spirometry, Other (Acapella ). Denies: New Symptoms - Review of Systems General: Reports: No Symptoms. Denies: Fever, Weakness, Fatigue, Malaise, Chills HEENT: Reports: No Symptoms. Denies: Headaches, Sore Throat Pulmonary: Reports: Shortness of Breath (mild ), Cough (occasional ), Sputum (occasional ). Denies: Pleuritic Chest Pain, Hemoptysis, Wheezing Cardiovascular: Reports: Dyspnea on Exertion (mild ), Edema. Denies: Chest Pain, Palpitations, Lightheadedness Gastrointestinal: Reports: No Symptoms. Denies: Abdominal Pain, Constipation, Diarrhea, Nausea, Vomiting Genitourinary: Reports: No Symptoms. Denies: Pain Musculoskeletal: Reports: Joint Pain (left ankle - chronic gout, improved ) Skin: Reports: No Symptoms. Denies: Cyanosis Neurological: Reports: Pre-Existing Deficit (Utilizes walker ), Difficulty Walking (2/2 gout/left ankle pain ), Gait Disturbance. Denies: Confusion Psychiatric: Reports: No Symptoms - Patient Data Vitals - Most Recent: Last Vital Signs Temp 97.3 F 04/09/21 07:47 Pulse 72 04/09/21 07:47 Resp 14 04/09/21 07:47 BP 160/93 H 04/09/21 07:47 Pulse Ox 93 L 04/09/21 07:47 Weight - Most Recent: 175 lb 3.2 oz I&O - Last 24 hours: Intake & Output 04/08/21 04/09/21 04/09/21 22:59 06:59 14:59 Intake Total 780 850 Output Total 550 650 Balance 230 200 Lab Results - Last 24 hrs: Laboratory Results - last 24 hr 04/09/21 04/09/21 04/09/21 Range/Units 05:16 05:16 05:16 WBC 7.87 (3.98-10.04) K/mm3 RBC 2.14 L (3.98-5.22) M/mm3 Hgb 7.8 L (11.2-15.7) gm/dl Hct 24.9 L (34.1-44.9) % MCV 116.4 H (79.4-94.8) fl MCH 36.4 H (25.6-32.2) pg MCHC 31.3 L (32.2-35.5) g/dl RDW Std Deviation 78.9 H (36.4-46.3) fL Plt Count 195 (182-369) K/mm3 MPV 10.2 (9.4-12.3) fl Neut % (Auto) 79.1 H (34.0-71.1) % Lymph % (Auto) 7.5 L (19.3-51.7) % [place] % (Auto) 12.3 (4.7-12.5) % Eos % (Auto) 0.6 L (0.7-5.8) Baso % (Auto) 0.1 (0.1-1.2) % Neut # (Auto) 6.22 H (1.56-6.13) K/mm3 Lymph # (Auto) 0.59 L (1.18-3.74) K/mm3 [place] # (Auto) 0.97 H (0.24-0.36) K/mm3 Eos # (Auto) 0.05 (0.04-0.36) K/mm3 Baso # (Auto) 0.01 (0.01-0.08) K/mm3 Manual Slide Review Abnormal smear Sodium 141 (136-145) mEq/L Potassium 4.1 (3.5-5.1) mEq/L Chloride 104 (98-107) mEq/L Carbon Dioxide 29 (21-32) mEq/L Anion Gap 12.1 (5-15) BUN 16 (7-18) mg/dL Creatinine 1.2 H (0.55-1.02) mg/dL Est Cr Clr Drug Dosing 30.14 mL/min Estimated GFR (MDRD) 43 (>60) mL/min BUN/Creatinine Ratio 13.3 L (14-18) Glucose 139 H (70-99) mg/dL Calcium 8.7 (8.5-10.1) mg/dL Magnesium 1.8 (1.8-2.4) mg/dL LIANE Results - Last 24 hrs: Microbiology 04/06/21 11:04 Aerobic Blood Culture - Preliminary Blood - Venous - Lab Draw Gram Positive Cocci Anaerobic Blood Culture - Preliminary NO GROWTH AFTER 2 DAYS 04/06/21 10:53 Aerobic Blood Culture - Preliminary Blood - Venous NO GROWTH AFTER 2 DAYS Anaerobic Blood Culture - Preliminary NO GROWTH AFTER 2 DAYS Med Orders - Current: Current Medications Acetaminophen (Acetaminophen 325 Mg Tab) 650 mg PO Q4H PRN PRN Reason: Pain Last Admin: 04/08/21 20:43 Dose: 650 mg Documented by: Albuterol/Ipratropium (Albuterol/Ipratropium 3.0-0.5 Mg/3 Ml Neb Soln) 3 ml NEB Q4H PRN PRN Reason: Shortness Of Breath/wheezing Last Admin: 04/08/21 23:08 Dose: 3 ml Documented by: Allopurinol (Allopurinol 300 Mg Tab) 150 mg PO DAILY [facility] Last Admin: 04/08/21 08:30 Dose: 150 mg Documented by: Apixaban (Apixaban 2.5 Mg Tab) 2.5 mg PO BID [facility] Last Admin: 04/08/21 20:42 Dose: 2.5 mg Documented by: Atorvastatin Calcium (Atorvastatin 40 Mg Tab) 40 mg PO BEDTIME [facility] Last Admin: 04/08/21 20:43 Dose: 40 mg Documented by: Bisacodyl (Bisacodyl 5 Mg Tab) 10 mg PO DAILY PRN PRN Reason: Constipation Cholecalciferol (Cholecalciferol (Vitamin D3) 25 Mcg Tab) 50 mcg PO DAILY [facility] Last Admin: 04/08/21 08:29 Dose: 50 mcg Documented by: Colchicine (Colchicine 0.6 Mg Tab) 0.3 mg PO DAILY PRN PRN Reason: Other Last Admin: 04/07/21 20:29 Dose: 0.3 mg Documented by: Folic Acid (Folic Acid 1 Mg Tab) 1 mg PO DAILY [facility] Last Admin: 04/08/21 08:30 Dose: 1 mg Documented by: Furosemide (Furosemide 40 Mg Tab) 40 mg PO DAILY [facility] Last Admin: 04/08/21 08:31 Dose: 40 mg Documented by: Cefepime HCl 1 gm/ Premix 50 mls @ 100 mls/hr IV Q24H [facility] Insulin Glargine (Insulin Glarg,Human.Rec.Analog 100 Unit/Ml) 13 unit SUBCUT DAILY [facility] Last Admin: 04/08/21 08:33 Dose: 13 units Documented by: Latanoprost (Latanoprost 0.005% Ophth Soln 2.5 Ml Bottle) 0 ml EYEBOTH BEDTIME [facility] Last Admin: 04/08/21 20:42 Dose: 1 drop Documented by: Levothyroxine Sodium (Levothyroxine 75 Mcg Tab) 75 mcg PO ACBREAKFAST [facility] Last Admin: 04/09/21 05:27 Dose: 75 mcg Documented by: Lisinopril (Lisinopril 20 Mg Tab) 40 mg PO DAILY [facility] Last Admin: 04/08/21 08:30 Dose: 40 mg Documented by: Magnesium Oxide (Magnesium Oxide 400 Mg Tab) 400 mg PO DAILY [facility] Last Admin: 04/08/21 11:13 Dose: 400 mg Documented by: Metoprolol Succinate (Metoprolol Succinate 50 Mg Tab.Er) 100 mg PO DAILY [facility] Last Admin: 04/08/21 08:29 Dose: 100 mg Documented by: Nitroglycerin (Nitroglycerin 0.4 Mg Tab.Sl) 0.4 mg SL ASDIRECTED PRN PRN Reason: Chest Pain Ondansetron HCl (Ondansetron 4 Mg/2 Ml Sdv) 4 mg IVPUSH Q4HR PRN PRN Reason: Nausea Last Admin: 04/08/21 14:30 Dose: 4 mg Documented by: Psyllium Husk (Psyllium Husk Powder Sugar Free 5.85 Gm Packet) 1 pkt PO BID [facility] Last Admin: 04/08/21 20:42 Dose: 1 pkt Documented by: Senna (Sennosides 8.6 Mg Tab) 17.2 mg PO DAILY [facility] Last Admin: 04/08/21 08:29 Dose: 17.2 mg Documented by: Tramadol HCl (Tramadol 50 Mg Tab) 50 mg PO Q6H PRN PRN Reason: Pain Last Admin: 04/08/21 17:11 Dose: 50 mg Documented by: Discontinued Medications Acetaminophen (Acetaminophen 325 Mg Tab) 650 mg PO ONETIME ONE Stop: 04/06/21 10:32 Last Admin: 04/06/21 10:51 Dose: 650 mg Documented by: Albuterol/Ipratropium (Albuterol/Ipratropium 3.0-0.5 Mg/3 Ml Neb Soln) 3 ml NEB Q4H PRN PRN Reason: Shortness Of Breath/wheezing Last Admin: 04/06/21 11:11 Dose: 3 ml Documented by: Apixaban (Apixaban 5 Mg Tab) 5 mg PO BID [facility] Furosemide (Furosemide 40 Mg/4 Ml Vial) 60 mg IVPUSH NOW ONE Stop: 04/06/21 11:10 Last Admin: 04/06/21 12:22 Dose: 60 mg Documented by: Sodium Chloride (Normal Saline) 1,000 mls @ 75 mls/hr IV ASDIRECTED [facility] Last Admin: 04/07/21 04:49 Dose: 75 mls/hr Documented by: Ceftriaxone Sodium 2 gm/ (Sodium Chloride) 100 mls @ 200 mls/hr IV ONETIME ONE Stop: 04/06/21 12:02 Last Admin: 04/06/21 12:23 Dose: 200 mls/hr Documented by: Cefepime HCl 1 gm/ Sodium (Chloride) 50 mls @ 100 mls/hr IV Q24H [facility] Last Admin: 04/08/21 20:45 Dose: 100 mls/hr Documented by: Vancomycin HCl 1 gm/ Sodium (Chloride) 250 mls @ 250 mls/hr IV Q24H [facility] Last Admin: 04/06/21 14:47 Dose: 250 mls/hr Documented by: Magnesium Sulfate 2 gm/ Premix 50 mls @ 25 mls/hr IV ONETIME ONE Stop: 04/07/21 14:44 Last Admin: 04/07/21 13:39 Dose: 25 mls/hr Documented by: Metoclopramide HCl (Metoclopramide 10 Mg/2 Ml Sdv) 5 mg IVPUSH ONETIME ONE Stop: 04/06/21 10:32 Last Admin: 04/06/21 10:50 Dose: 5 mg Documented by: Ondansetron HCl (Ondansetron 4 Mg/2 Ml Sdv) Confirm Administered Dose 4 mg .ROUTE .STK-MED ONE Stop: 04/08/21 03:44 Last Admin: 04/08/21 05:00 Dose: Not Given Documented by: Potassium Chloride (Potassium Chloride 20 Meq Tab.Er) 40 meq PO BID [facility] Stop: 04/07/21 21:01 Last Admin: 04/07/21 20:31 Dose: 40 meq Documented by: Vancomycin HCl (Pharmacy To Dose - Vancomycin) 1 dose .XX ASDIRECTED PRN PRN Reason: RX TO DOSE VANCO - Exam Quality Assessment: Reports: Supplemental Oxygen (3L), DVT Prophylaxis. Denies: Urine Catheter General: Reports: Alert, Oriented, Cooperative, No Acute Distress HEENT: Reports: Pupils Equal, Pupils Reactive, Mucous Membr. Moist/[place] Neck: Reports: Supple, Trachea Midline Lungs: Reports: Normal Respiratory Effort, Decreased Breath Sounds, Rhonchi Cardiovascular: Reports: Regular Rate, Regular Rhythm GI/Abdominal Exam: Normal Bowel Sounds, Soft, Non-Tender, No Distention (Female) Exam: Deferred Rectal (Female) Exam: Normal Exam, Normal Rectal Tone Back Exam: Reports: Normal Inspection, Full Range of Motion Extremities: Normal Inspection, Normal Range of Motion, Normal Capillary Refill, Pedal Edema, Leg Pain (left lower leg 2/2 gout ) Skin: Reports: Warm, Dry, Intact Neurological: Reports: No New Focal Deficit Psy/Mental Status: Reports: Alert, Normal Affect, Normal Mood <Luis Alfredo Banda Jr - Last Filed: 04/10/21 05:56> Discharge Summary - Referral to Home Health Primary Care Physician: Bright Koenig MD - Patient Summary/Data Consults: Consultations 04/06/21 13:07 OT Evaluation and Treatment [CONS] Routine PT Evaluation and Treatment [CONS] Routine 04/07/21 09:48 Consult to Case Management/Umbrella Repairer [CONS] Routine 04/07/21 09:49 Consult to Respiratory Therapy [Respiratory Care Assess and Treatment] [CONS] Routine - Discharge Summary/Plan Comment Discharge Summary/Plan Comment: Case discussed in full. Agree with evaluation, assessment and plan. - Patient Data Vitals - Most Recent: Last Vital Signs Temp 97.5 F 04/09/21 11:31 Pulse 107 H 04/09/21 11:31 Resp 18 04/09/21 11:31 BP 112/71 04/09/21 11:31 Pulse Ox 94 L 04/09/21 11:31 I&O - Last 24 hours: Intake & Output 04/09/21 04/09/21 04/10/21 14:59 22:59 06:59 Intake Total 0 Balance 0 Lab Results - Last 24 hrs: Laboratory Results - last 24 hr 04/09/21 Range/Units 09:07 SARS-CoV-2 RNA (CATIE) Negative (NEGATIVE) [facility] Results - Last 24 hrs: Microbiology 04/06/21 11:04 Aerobic Blood Culture - Preliminary Blood - Venous - Lab Draw Staphylococcus Hominis Anaerobic Blood Culture - Preliminary NO GROWTH AFTER 3 DAYS 04/06/21 10:53 Aerobic Blood Culture - Preliminary Blood - Venous NO GROWTH AFTER 3 DAYS Anaerobic Blood Culture - Preliminary NO GROWTH AFTER 3 DAYS Med Orders - Current: Current Medications Discontinued Medications Acetaminophen (Acetaminophen 325 Mg Tab) 650 mg PO ONETIME ONE Stop: 04/06/21 10:32 Last Admin: 04/06/21 10:51 Dose: 650 mg Documented by: Acetaminophen (Acetaminophen 325 Mg Tab) 650 mg PO Q4H PRN PRN Reason: Pain Last Admin: 04/08/21 20:43 Dose: 650 mg Documented by: Albuterol/Ipratropium (Albuterol/Ipratropium 3.0-0.5 Mg/3 Ml Neb Soln) 3 ml NEB Q4H PRN PRN Reason: Shortness Of Breath/wheezing Last Admin: 04/06/21 11:11 Dose: 3 ml Documented by: Albuterol/Ipratropium (Albuterol/Ipratropium 3.0-0.5 Mg/3 Ml Neb Soln) 3 ml NEB Q4H PRN PRN Reason: Shortness Of Breath/wheezing Last Admin: 04/08/21 23:08 Dose: 3 ml Documented by: Allopurinol (Allopurinol 300 Mg Tab) 150 mg PO DAILY [facility] Last Admin: 04/09/21 08:32 Dose: 150 mg Documented by: Apixaban (Apixaban 5 Mg Tab) 5 mg PO BID [facility] Apixaban (Apixaban 2.5 Mg Tab) 2.5 mg PO BID [facility] Last Admin: 04/09/21 08:34 Dose: 2.5 mg Documented by: Atorvastatin Calcium (Atorvastatin 40 Mg Tab) 40 mg PO BEDTIME [facility] Last Admin: 04/08/21 20:43 Dose: 40 mg Documented by: Bisacodyl (Bisacodyl 5 Mg Tab) 10 mg PO DAILY PRN PRN Reason: Constipation Cholecalciferol (Cholecalciferol (Vitamin D3) 25 Mcg Tab) 50 mcg PO DAILY [facility] Last Admin: 04/09/21 08:32 Dose: 50 mcg Documented by: Colchicine (Colchicine 0.6 Mg Tab) 0.3 mg PO DAILY PRN PRN Reason: Other Last Admin: 04/07/21 20:29 Dose: 0.3 mg Documented by: Folic Acid (Folic Acid 1 Mg Tab) 1 mg PO DAILY [facility] Last Admin: 04/09/21 08:33 Dose: 1 mg Documented by: Furosemide (Furosemide 40 Mg/4 Ml Vial) 60 mg IVPUSH NOW ONE Stop: 04/06/21 11:10 Last Admin: 04/06/21 12:22 Dose: 60 mg Documented by: Furosemide (Furosemide 40 Mg Tab) 40 mg PO DAILY [facility] Last Admin: 04/09/21 08:32 Dose: 40 mg Documented by: Heparin Sodium (Porcine) (Heparin Sodium 100 Units/Ml 5 Ml Syringe) 500 units FLUSH ASDIRECTED [facility] Last Admin: 04/09/21 11:23 Dose: 500 units Documented by: Sodium Chloride (Normal Saline) 1,000 mls @ 75 mls/hr IV ASDIRECTED [facility] Last Admin: 04/07/21 04:49 Dose: 75 mls/hr Documented by: Ceftriaxone Sodium 2 gm/ (Sodium Chloride) 100 mls @ 200 mls/hr IV ONETIME ONE Stop: 04/06/21 12:02 Last Admin: 04/06/21 12:23 Dose: 200 mls/hr Documented by: Cefepime HCl 1 gm/ Sodium (Chloride) 50 mls @ 100 mls/hr IV Q24H [facility] Last Admin: 04/08/21 20:45 Dose: 100 mls/hr Documented by: Vancomycin HCl 1 gm/ Sodium (Chloride) 250 mls @ 250 mls/hr IV Q24H [facility] Last Admin: 04/06/21 14:47 Dose: 250 mls/hr Documented by: Magnesium Sulfate 2 gm/ Premix 50 mls @ 25 mls/hr IV ONETIME ONE Stop: 04/07/21 14:44 Last Admin: 04/07/21 13:39 Dose: 25 mls/hr Documented by: Cefepime HCl 1 gm/ Premix 50 mls @ 100 mls/hr IV Q24H [facility] Insulin Glargine (Insulin Glarg,Human.Rec.Analog 100 Unit/Ml) 13 unit SUBCUT DAILY [facility] Last Admin: 04/09/21 08:34 Dose: 13 units Documented by: Latanoprost (Latanoprost 0.005% Ophth Soln 2.5 Ml Bottle) 0 ml EYEBOTH BEDTIME [facility] Last Admin: 04/08/21 20:42 Dose: 1 drop Documented by: Levothyroxine Sodium (Levothyroxine 75 Mcg Tab) 75 mcg PO ACBREAKFAST [facility] Last Admin: 04/09/21 05:27 Dose: 75 mcg Documented by: Lisinopril (Lisinopril 20 Mg Tab) 40 mg PO DAILY [facility] Last Admin: 04/09/21 08:32 Dose: 40 mg Documented by: Magnesium Oxide (Magnesium Oxide 400 Mg Tab) 400 mg PO DAILY [facility] Last Admin: 04/09/21 08:33 Dose: 400 mg Documented by: Metoclopramide HCl (Metoclopramide 10 Mg/2 Ml Sdv) 5 mg IVPUSH ONETIME ONE Stop: 04/06/21 10:32 Last Admin: 04/06/21 10:50 Dose: 5 mg Documented by: Metoprolol Succinate (Metoprolol Succinate 50 Mg Tab.Er) 100 mg PO DAILY [facility] Last Admin: 04/09/21 08:33 Dose: 100 mg Documented by: Nitroglycerin (Nitroglycerin 0.4 Mg Tab.Sl) 0.4 mg SL ASDIRECTED PRN PRN Reason: Chest Pain Ondansetron HCl (Ondansetron 4 Mg/2 Ml Sdv) 4 mg IVPUSH Q4HR PRN PRN Reason: Nausea Last Admin: 04/08/21 14:30 Dose: 4 mg Documented by: Ondansetron HCl (Ondansetron 4 Mg/2 Ml Sdv) Confirm Administered Dose 4 mg .ROUTE .STK-MED ONE Stop: 04/08/21 03:44 Last Admin: 04/08/21 05:00 Dose: Not Given Documented by: Potassium Chloride (Potassium Chloride 20 Meq Tab.Er) 40 meq PO BID [facility] Stop: 04/07/21 21:01 Last Admin: 04/07/21 20:31 Dose: 40 meq Documented by: Psyllium Husk (Psyllium Husk Powder Sugar Free 5.85 Gm Packet) 1 pkt PO BID [facility] Last Admin: 04/09/21 08:31 Dose: 1 pkt Documented by: Senna (Sennosides 8.6 Mg Tab) 17.2 mg PO DAILY [facility] Last Admin: 04/09/21 08:32 Dose: 17.2 mg Documented by: Tramadol HCl (Tramadol 50 Mg Tab) 50 mg PO Q6H PRN PRN Reason: Pain Last Admin: 04/08/21 17:11 Dose: 50 mg Documented by: Vancomycin HCl (Pharmacy To Dose - Vancomycin) 1 dose .XX ASDIRECTED PRN PRN Reason: RX TO DOSE VANCO
[2021-04-09] MEDS: Psyllium Husk Powder Sugar Free 5.85 GM Packet PO SCH (08:31)
[2021-04-09] MEDS: Cholecalciferol (Vitamin D3) 25 MCG Tab PO SCH (08:32)
[2021-04-09] MEDS: Lisinopril 20 MG Tab PO SCH (08:32)
[2021-04-09] MEDS: Allopurinol 300 MG Tab PO SCH (08:32)
[2021-04-09] MEDS: Furosemide 40 MG Tab PO SCH (08:32)
[2021-04-09] MEDS: Sennosides 8.6 MG Tab PO SCH (08:32)
[2021-04-09] MEDS: Folic Acid 1 MG Tab PO SCH (08:33)
[2021-04-09] MEDS: Metoprolol Succinate 50 MG Tab.ER PO SCH (08:33)
[2021-04-09] MEDS: Magnesium Oxide 400 MG Tab PO SCH (08:33)
[2021-04-09] MEDS: Insulin Glarg,Human.Rec.Analog 100 Unit/ML SUBCUT SCH (08:34)
[2021-04-09] MEDS: Apixaban 2.5 MG Tab PO SCH (08:34)
[2021-04-09 11:46] VITALS: BP 112/71; PULSE 107
[2021-04-09] MEDS ORDERED: Cefepime 1 GM in Premix Bag 1 BAG IV SCH (21:00)
== END 2021-04-09 13:01 | DRG 194 ==
LOC: JD.ED 10:12 → JD.MS 13:05
PROVIDERS: ADMIT Hospitalist; ATTEND Hospitalist
DX: J18.9 Pneumonia, unspecified organism (principal); R50.9 Fever, unspecified; C34.91 Malignant neoplasm of unspecified part of right bronchus or lung; C79.31 Secondary malignant neoplasm of brain; H40.9 Unspecified glaucoma; I13.0 Hypertensive heart and chronic kidney disease with heart failure and stage 1 through stage 4 chronic kidney disease, or unspecified chronic kidney disease; C78.02 Secondary malignant neoplasm of left lung; C79.51 Secondary malignant neoplasm of bone; N18.32 Chronic kidney disease, stage 3b; N18.30 Chronic kidney disease, stage 3 unspecified; I50.9 Heart failure, unspecified; J20.9 Acute bronchitis, unspecified; Z66 Do not resuscitate; Z20.822 Contact with and (suspected) exposure to COVID-19; I25.10 Atherosclerotic heart disease of native coronary artery without angina pectoris; E11.22 Type 2 diabetes mellitus with diabetic chronic kidney disease; E03.9 Hypothyroidism, unspecified; E83.42 Hypomagnesemia; D63.1 Anemia in chronic kidney disease; E87.6 Hypokalemia; E78.00 Pure hypercholesterolemia, unspecified; H54.7 Unspecified visual loss; M19.90 Unspecified osteoarthritis, unspecified site; E55.9 Vitamin D deficiency, unspecified; M54.9 Dorsalgia, unspecified; G89.29 Other chronic pain; M10.9 Gout, unspecified; Z96.643 Presence of artificial hip joint, bilateral; M79.7 Fibromyalgia; I48.91 Unspecified atrial fibrillation; Z98.49 Cataract extraction status, unspecified eye; Z95.0 Presence of cardiac pacemaker; Z95.828 Presence of other vascular implants and grafts; Z99.81 Dependence on supplemental oxygen; Z88.5 Allergy status to narcotic agent; Z88.2 Allergy status to sulfonamides; Z79.4 Long term (current) use of insulin; Z79.899 Other long term (current) drug therapy; Z90.710 Acquired absence of both cervix and uterus; Z90.2 Acquired absence of lung [part of]; Z92.3 Personal history of irradiation; Z92.21 Personal history of antineoplastic chemotherapy; Z86.16 Personal history of COVID-19; Z86.14 Personal history of Methicillin resistant Staphylococcus aureus infection; Z79.01 Long term (current) use of anticoagulants; Z88.8 Allergy status to other drugs, medicaments and biological substances; Z79.890 Hormone replacement therapy
CPT/HCPCS: 36415; 71045; 80053; 81001; 83605; 83735; 83880; 84484; 84550; 85025; 85610; 85652; 85730; 86140; 87040 ×2; 93005; 94640; 96365; 96375; 99285; A9270; J0696; J1940; J2765; J7030; U0002; 80048; 87077; 87641; 93010; 94668; 94760; 97110-GP; 97116-GP; 97162-GP; 99223; 99233; 99239; J0692; J1642; J1815-GY; J2405; J3370; J3475; J7050; J7620-GY